=== PATIENT | female | born 1945 | race Caucasian/White ===

== ENCOUNTER 2016-11-01 19:36 | Emergency (ER) | payer MEDICARE, OTHER ==
[2016-11-01 20:11] VITALS: RESP 18
--- NOTE | 2016-11-01 20:45 | ED ---
Chest Pain HPI - General Chief Complaint: Chest Pain Stated Complaint: L side pain Time Seen by Provider: 11/01/16 20:18 Source: patient, RN notes reviewed Mode of arrival: ambulatory Limitations: no limitations - History of Present Illness Initial Comments: This is a 70-year-old female with a history of anemia occasional transfusions also diabetes who complains of the onset over last couple days of sharp and sometimes dull left-sided chest pain radiates underneath her left breast. She states she has been moving but has really lifted anything up recently. She states it gets worse with movements and some deep breathing no fevers chills nausea vomiting sweats cough or other symptoms. She has no known history of heart or lung disease she does have a history however of CHF. She is not short of breath and has no peripheral edema. When the pain is area can be as high as 8/10 currently is 0/10. MD Complaint: chest pain - Related Data Previous Rx's Medication Instructions Recorded Ibuprofen 800 mg PO Q6HR PRN #20 tablet 11/01/16 Levofloxacin [Levaquin] 500 mg PO DAILY #9 tab 11/01/16 Magnesium Oxide [Magnesium] 500 mg PO DAILY #7 capsule 11/01/16 Allergies Allergy/AdvReac Type Severity Reaction Status Date / Time pentazocine [From Talwin] Allergy Hallucinati Verified 11/01/16 20:11 ons Review of Systems ROS Statement: Those systems with pertinent positive or pertinent negative responses have been documented in the HPI. ROS Other: All systems not noted in ROS Statement are negative. EKG Findings - EKG Results: EKG: interpreted by SHAHIDA, sinus rhythm (Sinus rhythm with a rate 67 appear of 01 50 to QRS of 72 QT/QTC of 390/412 st-t wave changes.) Past Medical History Past Medical History: Heart Failure, Diabetes Mellitus, Hypertension Additional Past Medical History / Comment(s): "Blood Disorder"; Anemia - frequent blood transfusions. History of Any Multi-Drug Resistant Organisms: None Reported Past Surgical History: Hysterectomy, Orthopedic Surgery, Tonsillectomy Additional Past Surgical History / Comment(s): Hemorrhagic cyst removed from right ureter; Right foot surgery; Left hip pain stimulator implanted Past Psychological History: No Psychological Hx Reported Smoking Status: Former smoker Past Alcohol Use History: None Reported Past Drug Use History: None Reported General Exam - General Exam Comments Initial Comments: This is a well-developed well-nourished awake alert oriented 3 female Limitations: no limitations General appearance: alert, in no apparent distress Head exam: Present: atraumatic, normocephalic, normal inspection Eye exam: Present: normal appearance, PERRL, EOMI. Absent: scleral icterus, conjunctival injection, periorbital swelling ENT exam: Present: normal exam, mucous membranes moist Neck exam: Present: normal inspection. Absent: tenderness, meningismus, lymphadenopathy Respiratory exam: Present: normal lung sounds bilaterally, chest wall tenderness (Reproducible tenderness palpation along the left anterior lateral chest wall no step-off no crepitation no rashes seen). Absent: respiratory distress, wheezes, rales, rhonchi, stridor Cardiovascular Exam: Present: regular rate, normal rhythm, normal heart sounds. Absent: systolic murmur, diastolic murmur, rubs, gallop, clicks GI/Abdominal exam: Present: soft, normal bowel sounds. Absent: distended, tenderness, guarding, rebound, rigid Extremities exam: Present: normal inspection, full ROM, normal capillary refill. Absent: tenderness, pedal edema, joint swelling, calf tenderness Back exam: Present: normal inspection Neurological exam: Present: alert, oriented X3, CN II-XII intact Psychiatric exam: Present: normal affect, normal mood Skin exam: Present: warm, dry, intact, normal color. Absent: rash Course Vital Signs 11/01/16 11/01/16 20:07 21:11 Temperature 98.0 F Pulse Rate 83 72 Respiratory 18 18 Rate Blood Pressure 153/70 128/60 O2 Sat by Pulse 98 96 Oximetry Chest Pain MDM - MDM Imaging review shows no acute changes. Patient does demonstrate hypomagnesemia as well as urinary tract infection that she's got no symptoms. She states she tolerates Levaquin well also be discharged on appropriate medication she does feel improved. Disposition Clinical Impression: Chest wall syndrome, Urinary tract infection, Hypomagnesemia Disposition: HOME SELF-CARE Condition: Good Instructions: Costochondritis (ED), Urinary Tract Infection in Women (ED), Hypomagnesemia (ED) Prescriptions: Ibuprofen 800 mg PO Q6HR PRN #20 tablet PRN Reason: Pain Levofloxacin [Levaquin] 500 mg PO DAILY #9 tab Magnesium Oxide [Magnesium] 500 mg PO DAILY #7 capsule Referrals: None,Stated [Primary Care Provider] - 1-2 days
[2016-11-01 21:26] LABS: Basophils # (A) 0.1 k/uL (0-0.2); Basophils % (A) 1 %; CH 28.7; CHCM 32.1; Eosinophils # (A) 0.3 k/uL (0-0.7); Eosinophils % (A) 4 %; HDW 2.72; HGB 11.5 gm/dL (11.4-16.0); Luc # (Auto) 0.12; Luc % (Auto) 2; Lymphocytes # (A) 1.9 k/uL (1.0-4.8); Lymphocytes % (A) 27 %; MCH 29.6 pg (25.0-35.0); MCV 89.9 fL (80.0-100.0); Mean Platelet Volume 7.2; Monocytes # (A) 0.4 k/uL (0-1.0); Monocytes % (A) 5 %; Neutrophils # (A) 4.3 k/uL (1.3-7.7); Neutrophils % (A) 62 %; RBC 3.89 m/uL (3.80-5.40); RDW 15.8 % (11.5-15.5)
[2016-11-01 21:29] LABS: ALT 30 U/L (9-52); AST 54 U/L (14-36); Alkaline Phosphatase 136 U/L (38-126); Anion Gap 9 mmol/L; Blood Urea Nitrogen 14 mg/dL (7-17); Carbon Dioxide 23 mmol/L (22-30); Chloride 111 mmol/L (98-107); Glucose 108 mg/dL (74-99); Non-African American GFR(MDRD) >60 (>60 ml/min/1.73 sqM); Potassium 4.2 mmol/L (3.5-5.1); Sodium 143 mmol/L (137-145); Total Protein 8.1 g/dL (6.3-8.2)
[2016-11-01 21:38] LABS: Magnesium 0.8 mg/dL (1.6-2.3)
[2016-11-01] MEDS ORDERED: MAGNESIUM SULFATE-D5W PMX 1 GM in DEXTROSE/WATER 1 100ML.BAG IVPB ONE (21:38)
[2016-11-01 21:42] LABS: Creatine Kinase 157 U/L (30-135)
--- NOTE | 2016-11-01 21:45 | XR ---
EXAMINATION TYPE: XR chest 2V DATE OF EXAM: 11/01/2016 COMPARISON: NONE HISTORY: Chest pain TECHNIQUE: Frontal and lateral views of the chest are obtained. FINDINGS: There is no focal air space opacity, pleural effusion, or pneumothorax seen. Thoracic cord stimulator leads are present. There are overlying cardiac leads. Patient is rotated. The cardiac helen houette size is enlarged. The osseous structures are intact. IMPRESSION: Cardiomegaly.
[2016-11-01] MEDS ORDERED: KETOROLAC 30 MG/ML 1 ML VIAL IVP STA (21:48)
[2016-11-01 21:55] LABS: Creatine Kinase MB 1.8 ng/mL (0.0-2.4); Troponin I <0.012 ng/mL (0.000-0.034)
[2016-11-01] MEDS ORDERED: SODIUM CHLORIDE 0.9% 500 ML IV STA (22:04)
[2016-11-01 22:39] LABS: INR 1.3 (<1.1); Partial Thromboplastin Time 28.9 sec (22.0-30.0)
[2016-11-01 23:24] LABS: Appearance,Urine Cloudy (Clear); Bacteria,Urine Many /hpf; Bilirubin,Urine Negative (Negative); Glucose,Urine (UA) 1+ (Negative); Ketones,Urine Negative (Negative); Leukocyte Esterase,Urine Large (Negative); Mucus,Urine Rare /hpf; Nitrite,Urine Positive (Negative); PH, Urine 5.5 (5.0-8.0); Particle Count 52941; Protein,Urine Trace (Negative); RBC,Urine 11 /hpf (0-5); Specific Gravity,Urine 1.016 (1.001-1.035); Squamous Epithelial Cell,Urine 12 /hpf (0-4); UA Billing (MACRO vs. MICRO) MICRO; Urobilinogen,Urine <2.0 mg/dL (<2.0); WBC,Urine >182 /hpf (0-5)
[2016-11-01] MEDS ORDERED: LEVOFLOXACIN 750 MG TAB PO STA (23:30)
[2016-11-02 02:05] VITALS: BP 142/65; PULSE 78; TEMP 97.6
== END 2016-11-01 23:45 | disposition home or self-care (01) ==
LOC: EC 19:36
DX: R07.1 Chest pain on breathing (principal); N39.0 Urinary tract infection, site not specified; E83.42 Hypomagnesemia; Z87.891 Personal history of nicotine dependence; Z88.8 Allergy status to other drugs, medicaments and biological substances
CPT/HCPCS: 36415; 85379; 80053; 82550; 82553; 83735; 84484; 85025; 85610; 85730; 81001; 71020; 99285; 96365; 96375; 96361; J1885; J3475; 93005

== ENCOUNTER 2016-11-15 00:35 | Emergency (ER) | payer MEDICARE, OTHER ==
[2016-11-15 00:42] VITALS: RESP 16
[2016-11-15] MEDS ORDERED: SODIUM CHLORIDE 0.9% 1,000 ML IV STA (01:01)
[2016-11-15] MEDS ORDERED: HYDROmorphone 1 MG/ML 1 ML SYRINGE IVP STA (01:01)
[2016-11-15] MEDS ORDERED: ONDANSETRON 4 MG/2 ML VIAL IVP STA (01:01)
[2016-11-15] MEDS ORDERED: KETOROLAC 30 MG/ML 1 ML VIAL IVP STA (01:01)
[2016-11-15 01:36] LABS: Basophils # (A) 0.1 k/uL (0-0.2); Basophils % (A) 1 %; CH 28.9; CHCM 31.5; Eosinophils # (A) 0.3 k/uL (0-0.7); Eosinophils % (A) 5 %; HCT 34.1 % (34.0-46.0); HDW 2.66; HGB 10.6 gm/dL (11.4-16.0); Hypochromasia Slight; Luc % (Auto) 2; Lymphocytes # (A) 1.4 k/uL (1.0-4.8); Lymphocytes % (A) 25 %; MCH 28.7 pg (25.0-35.0); MCHC 31.1 g/dL (31.0-37.0); MCV 92.3 fL (80.0-100.0); Mean Platelet Volume 7.3; Monocytes # (A) 0.4 k/uL (0-1.0); Monocytes % (A) 6 %; Neutrophils # (A) 3.6 k/uL (1.3-7.7); Neutrophils % (A) 62 %; RDW 15.4 % (11.5-15.5); WBC 5.8 k/uL (3.8-10.6); WBC (Perox) 5.84
[2016-11-15 01:45] LABS: ALT 46 U/L (9-52); AST 34 U/L (14-36); Alkaline Phosphatase 161 U/L (38-126); Amylase 50 U/L (30-110); Anion Gap 11 mmol/L; Blood Urea Nitrogen 15 mg/dL (7-17); Calcium 8.7 mg/dL (8.4-10.2); Carbon Dioxide 22 mmol/L (22-30); Chloride 107 mmol/L (98-107); Glucose 159 mg/dL (74-99); Non-African American GFR(MDRD) >60 (>60 ml/min/1.73 sqM); Potassium 3.7 mmol/L (3.5-5.1); Sodium 140 mmol/L (137-145); Total Bilirubin 0.6 mg/dL (0.2-1.3); Total Protein 7.3 g/dL (6.3-8.2)
--- NOTE | 2016-11-15 02:18 | XR ---
INDICATION: Abdominal pain COMPARISON: None. FINDINGS: Upright AP views of the abdomen are provided. Gas pattern is nonspecific and nonobstructive. Colonic gas is visualized. No fluid levels. No evidence of free air. There has been prior cholecystectomy. Regional skeleton is intact. Spinal stimulator device projecting over the left iliac bone with leads extending to the T8 level. IMPRESSION: Nonspecific, nonobstructive bowel gas pattern.
[2016-11-15 02:31] LABS: Appearance,Urine Clear (Clear); Bilirubin,Urine Negative (Negative); Glucose,Urine (UA) Negative (Negative); Ketones,Urine Negative (Negative); Leukocyte Esterase,Urine Negative (Negative); Nitrite,Urine Negative (Negative); PH, Urine 5.5 (5.0-8.0); Protein,Urine Trace (Negative); Specific Gravity,Urine 1.019 (1.001-1.035); UA Billing (MACRO vs. MICRO) CHEM; Urobilinogen,Urine <2.0 mg/dL (<2.0)
--- NOTE | 2016-11-15 02:39 | ED ---
Abdominal Pain HPI - General Chief Complaint: Abdominal Pain Stated Complaint: Flank Pain Time Seen by Provider: 11/15/16 00:55 Source: patient, family, RN notes reviewed, old records reviewed Mode of arrival: ambulatory Limitations: no limitations - History of Present Illness Initial Comments: This is a 71-year-old female presenting to the emergency Department chief complaint of left upper quadrant and left flank pain for the past week. Patient reports that she was seen in the emergency department for similar pains a week ago was placed on Levaquin for urinary tract infection. Patient denies any urinary symptoms including dysuria or hematuria or polyuria. Patient reports that she is completely antibiotics yet still is having the pain and left upper quadrant. Patient denies any fever or chills. She denies any vomiting or changes in bowel movements. Patient denies any recent fever, chills , shortness of breath, chest pain, back pain, nausea vomiting, numbness or tingling, dysuria or hematuria, constipation or diarrhea, headaches or visual changes, or any other current symptoms - Related Data Previous Rx's Medication Instructions Recorded Ibuprofen 800 mg PO Q6HR PRN #20 tablet 11/01/16 Levofloxacin [Levaquin] 500 mg PO DAILY #9 tab 11/01/16 Magnesium Oxide [Magnesium] 500 mg PO DAILY #7 capsule 11/01/16 Allergies Allergy/AdvReac Type Severity Reaction Status Date / Time pentazocine [From Talwin] Allergy Hallucinati Verified 11/15/16 00:41 ons Review of Systems ROS Statement: Those systems with pertinent positive or pertinent negative responses have been documented in the HPI. ROS Other: All systems not noted in ROS Statement are negative. Past Medical History Past Medical History: Heart Failure, Diabetes Mellitus, Hypertension Additional Past Medical History / Comment(s): "Blood Disorder"; Anemia - frequent blood transfusions. History of Any Multi-Drug Resistant Organisms: None Reported Past Surgical History: Hysterectomy, Orthopedic Surgery, Tonsillectomy Additional Past Surgical History / Comment(s): Hemorrhagic cyst removed from right ureter; Right foot surgery; Left hip pain stimulator implanted Past Psychological History: No Psychological Hx Reported Smoking Status: Former smoker Past Alcohol Use History: None Reported Past Drug Use History: None Reported General Exam - General Exam Comments Initial Comments: Pleasant 71-year-old female. No acute distress. Limitations: no limitations General appearance: alert, in no apparent distress Head exam: Present: atraumatic, normocephalic, normal inspection Eye exam: Present: normal appearance, PERRL, EOMI. Absent: scleral icterus, conjunctival injection, periorbital swelling ENT exam: Present: normal exam, mucous membranes moist Neck exam: Present: normal inspection. Absent: tenderness, meningismus, lymphadenopathy Respiratory exam: Present: normal lung sounds bilaterally. Absent: respiratory distress, wheezes, rales, rhonchi, stridor Cardiovascular Exam: Present: regular rate, normal rhythm, normal heart sounds. Absent: systolic murmur, diastolic murmur, rubs, gallop, clicks GI/Abdominal exam: Present: soft, tenderness (Left upper quadrant tenderness), normal bowel sounds. Absent: distended, guarding, rebound, rigid Extremities exam: Present: normal inspection, full ROM, normal capillary refill. Absent: tenderness, pedal edema, joint swelling, calf tenderness Back exam: Present: normal inspection Neurological exam: Present: alert, oriented X3, CN II-XII intact Psychiatric exam: Present: normal affect, normal mood Skin exam: Present: warm, dry, intact, normal color. Absent: rash Course Vital Signs 11/15/16 00:38 Temperature 97.5 F L Pulse Rate 68 Respiratory 16 Rate Blood Pressure 149/65 O2 Sat by Pulse 97 Oximetry Medical Decision Making - Medical Decision Making This is a 71-year-old female presenting to the emergency Department chief complaint of left upper quadrant and left flank pain for the past week. Patient reports that she was seen in the emergency department for similar pains a week ago was placed on Levaquin for urinary tract infection. Patient denies any urinary symptoms including dysuria or hematuria or polyuria. Patient reports that she is completely antibiotics yet still is having the pain and left upper quadrant. Patient denies any fever or chills. She denies any vomiting or changes in bowel movements. Patient received IV pain medication and lab work. Lab work is unremarkable. KUB are negative. Patient is significantly tender in the left upper quadrant. CAT scan was performed with contrast. Discussed the case with Dr. Gaytan. CAT scan was later reviewed and negative for any acute process. Patient reports that she has a follow-up appointment with Dr. Nance on Thursday. Discussed with her that could be musculoskeletal in nature. Patient agrees. Patient will be advised to return if he gets worse. Patient understands treatment plan will comply. - Lab Data Result diagrams: 11/15/16 01:30 11/15/16 01:30 Lab Results 11/15/16 11/15/16 11/15/16 Range/Units 01:30 01:30 02:24 WBC 5.8 (3.8-10.6) k/uL RBC 3.70 L (3.80-5.40) m/uL Hgb 10.6 L (11.4-16.0) gm/dL Hct 34.1 (34.0-46.0) % MCV 92.3 (80.0-100.0) fL MCH 28.7 (25.0-35.0) pg MCHC 31.1 (31.0-37.0) g/dL RDW 15.4 (11.5-15.5) % Plt Count 125 L (150-450) k/uL Neutrophils % 62 % Lymphocytes % 25 % Monocytes % 6 % Eosinophils % 5 % Basophils % 1 % Neutrophils # 3.6 (1.3-7.7) k/uL Lymphocytes # 1.4 (1.0-4.8) k/uL Monocytes # 0.4 (0-1.0) k/uL Eosinophils # 0.3 (0-0.7) k/uL Basophils # 0.1 (0-0.2) k/uL Hypochromasia Slight PT (9.0-12.0) sec INR (<1.1) APTT (22.0-30.0) sec Sodium 140 (137-145) mmol/L Potassium 3.7 (3.5-5.1) mmol/L Chloride 107 (98-107) mmol/L Carbon Dioxide 22 (22-30) mmol/L Anion Gap 11 mmol/L BUN 15 (7-17) mg/dL Creatinine 0.80 (0.52-1.04) mg/dL Est GFR (MDRD) Af Amer >60 (>60 ml/min/1.73 sqM) Est GFR (MDRD) Non-Af >60 (>60 ml/min/1.73 sqM) Glucose 159 H (74-99) mg/dL Calcium 8.7 (8.4-10.2) mg/dL Total Bilirubin 0.6 (0.2-1.3) mg/dL AST 34 (14-36) U/L ALT 46 (9-52) U/L Alkaline Phosphatase 161 H (38-126) U/L Total Protein 7.3 (6.3-8.2) g/dL Albumin 3.8 (3.5-5.0) g/dL Amylase 50 (30-110) U/L Lipase 79 (23-300) U/L Urine Color Yellow Urine Appearance Clear (Clear) Urine pH 5.5 (5.0-8.0) Ur Specific [place] 1.019 (1.001-1.035) Urine Protein Trace H (Negative) Urine Glucose (UA) Negative (Negative) Urine Ketones Negative (Negative) Urine Blood Negative (Negative) Urine Nitrite Negative (Negative) Urine Bilirubin Negative (Negative) Urine Urobilinogen <2.0 (<2.0) mg/dL Ur Leukocyte Esterase Negative (Negative) 11/15/16 Range/Units 02:45 WBC (3.8-10.6) k/uL RBC (3.80-5.40) m/uL Hgb (11.4-16.0) gm/dL Hct (34.0-46.0) % MCV (80.0-100.0) fL MCH (25.0-35.0) pg MCHC (31.0-37.0) g/dL RDW (11.5-15.5) % Plt Count (150-450) k/uL Neutrophils % % Lymphocytes % % Monocytes % % Eosinophils % % Basophils % % Neutrophils # (1.3-7.7) k/uL Lymphocytes # (1.0-4.8) k/uL Monocytes # (0-1.0) k/uL Eosinophils # (0-0.7) k/uL Basophils # (0-0.2) k/uL Hypochromasia PT 13.1 H (9.0-12.0) sec INR 1.3 (<1.1) APTT 30.6 H (22.0-30.0) sec Sodium (137-145) mmol/L Potassium (3.5-5.1) mmol/L Chloride (98-107) mmol/L Carbon Dioxide (22-30) mmol/L Anion Gap mmol/L BUN (7-17) mg/dL Creatinine (0.52-1.04) mg/dL Est GFR (MDRD) Af Amer (>60 ml/min/1.73 sqM) Est GFR (MDRD) Non-Af (>60 ml/min/1.73 sqM) Glucose (74-99) mg/dL Calcium (8.4-10.2) mg/dL Total Bilirubin (0.2-1.3) mg/dL AST (14-36) U/L ALT (9-52) U/L Alkaline Phosphatase (38-126) U/L Total Protein (6.3-8.2) g/dL Albumin (3.5-5.0) g/dL Amylase (30-110) U/L Lipase (23-300) U/L Urine Color Urine Appearance (Clear) Urine pH (5.0-8.0) Ur Specific [place] (1.001-1.035) Urine Protein (Negative) Urine Glucose (UA) (Negative) Urine Ketones (Negative) Urine Blood (Negative) Urine Nitrite (Negative) Urine Bilirubin (Negative) Urine Urobilinogen (<2.0) mg/dL Ur Leukocyte Esterase (Negative) - Radiology Data Radiology results: report reviewed CT abdomen and pelvis was performed. No evidence of acute inflammatory process. Mild hepatosplenomegaly. Status post cholecystectomy and hysterectomy. Left; diverticulosis without diverticulitis. Appendix is not identified. AB x-rays negative for any acute process. Disposition Clinical Impression: Recurrent left upper quadrant abdominal pain, Left flank pain Disposition: HOME SELF-CARE Condition: Good Instructions: Abdominal Pain (ED) Additional Instructions: Rest, remain hydrated. Follow-up with primary care provider on Thursday. Return to the emergency department if any alarming signs or symptoms occur. Referrals: None,Stated [Primary Care Provider] - 1-2 days Time of Disposition: 04:13
[2016-11-15] MEDS ORDERED: RX INFO: IV CONTRAST WAS GIVEN 1 EACH MISC MISCELLANE PRN (02:48)
[2016-11-15 03:20] LABS: INR 1.3 (<1.1); Partial Thromboplastin Time 30.6 sec (22.0-30.0); Prothrombin Time 13.1 sec (9.0-12.0)
--- NOTE | 2016-11-15 04:06 | CT ---
INDICATION: Abdominal pain, left flank pain TECHNIQUE: Helical CT acquisition is performed through the abdomen and pelvis following the administration of 100 mL Omnipaque 300 IV contrast. Limited delayed postcontrast image acquisition is performed through the kidneys. Sagittal and coronal reformatted images are available. This CT exam was performed using one or more of the following dose reduction techniques: automated exposure control, adjustment of the mA and/or kV according to patient size, and/or use of iterative reconstruction technique. DOSIMETRY: CTDIvol 25.90 mGy; DLP 969.20 mGy-cm COMPARISON: KUB 11/15/16 FINDINGS: There is mild bibasilar subsegmental atelectasis. The gallbladder is surgically absent. There is mild hepatomegaly. There is mild splenomegaly 13.2 cm. The pancreas and adrenal glands are unremarkable. Kidneys are similar in size and enhancement. There is no hydronephrosis. There is aortoiliac atherosclerosis without aneurysm. There is no adenopathy. There is no evidence of small or large bowel obstruction. The appendix is not identified. There is left hemicolon diverticulosis without evidence of acute diverticulitis. The uterus is surgically absent. Urinary bladder is unremarkable. There are no acute osseous findings. Spinal stimulator in place. IMPRESSION: 1. No CT evidence of acute or inflammatory process. 2. Mild hepatosplenomegaly. 3. Status post cholecystectomy, hysterectomy. 4. Left hemicolon diverticulosis without acute diverticulitis. Appendix not identified.
[2016-11-15 04:43] VITALS: BP 140/65; PULSE 85; TEMP 96.9
== END 2016-11-15 04:42 | disposition home or self-care (01) ==
LOC: EC 00:35
DX: R10.12 Left upper quadrant pain (principal); Z87.891 Personal history of nicotine dependence; Z88.8 Allergy status to other drugs, medicaments and biological substances
CPT/HCPCS: 99284; 96374; 96375 ×2; 96361; 36415; 80053; 82150; 83690; 85025; 85610; 85730; 81003; 74000; 74177; J2405; J1885; J1170; Q9967

== ENCOUNTER → 2017-07-15 | Outpatient (CLI) | payer MEDICARE, OTHER ==
[2017-07-15 12:06] LABS: INR 1.2 (<1.2); Partial Thromboplastin Time 26.8 sec (22.0-30.0); Prothrombin Time 11.7 sec (9.0-12.0)
[2017-07-15 12:19] LABS: ALT 28 U/L (9-52); AST 31 U/L (14-36); Albumin 4.1 g/dL (3.5-5.0); Alkaline Phosphatase 92 U/L (38-126); Anion Gap 13 mmol/L; Blood Urea Nitrogen 20 mg/dL (7-17); Calcium 8.9 mg/dL (8.4-10.2); Carbon Dioxide 26 mmol/L (22-30); Chloride 104 mmol/L (98-107); Glucose 185 mg/dL (74-99); Potassium 4.8 mmol/L (3.5-5.1); Sodium 143 mmol/L (137-145); Total Bilirubin 0.5 mg/dL (0.2-1.3); Total Protein 7.5 g/dL (6.3-8.2)
[2017-07-15 12:31] LABS: Basophils % (A) 1 %; Eosinophils # (A) 0.1 k/uL (0-0.7); Eosinophils % (A) 2 %; HCT 33.5 % (34.0-46.0); Hypochromasia Marked; Lymphocytes # (A) 1.6 k/uL (1.0-4.8); Lymphocytes % (A) 27 %; MCH 27.8 pg (25.0-35.0); MCHC 29.9 g/dL (31.0-37.0); Monocytes # (A) 0.4 k/uL (0-1.0); Monocytes % (A) 6 %; Neutrophils # (A) 3.7 k/uL (1.3-7.7); Neutrophils % (A) 63 %; Platelet Count 126 k/uL (150-450); RBC 3.61 m/uL (3.80-5.40); WBC 5.9 k/uL (3.8-10.6)
== END | disposition home or self-care (01) ==
LOC: LABWHC1 10:58
PROVIDERS: ATTEND Internal Medicine Gastroenterology
DX: K74.60 Unspecified cirrhosis of liver (principal)
CPT/HCPCS: 36415; 80053; 82105; 85025; 85610; 85730

== ENCOUNTER → 2017-08-12 | Outpatient (CLI) | payer MEDICARE, OTHER ==
--- NOTE | 2017-08-12 13:10 | US ---
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 Normal less than 1.0 cm i n a postcholecystectomy patient. Right Kidney: wnl IMPRESSION: 1. Hepatomegaly with some heterogeneity which can be related to fatty infiltration. Sclerosis is also considered. Typical lobulation of the borders not identified at this time.
== END | disposition home or self-care (01) ==
LOC: RADUSWWP 09:58
PROVIDERS: ATTEND Internal Medicine Gastroenterology
DX: R16.0 Hepatomegaly, not elsewhere classified (principal)
CPT/HCPCS: 76705

== ENCOUNTER → 2017-09-23 | Outpatient (CLI) | payer MEDICARE, OTHER ==
--- NOTE | 2017-09-24 10:23 | MM ---
Reason for exam: screening (asymptomatic). Last mammogram was performed 1 year and 11 months ago. History: Patient is postmenopausal. Family history of breast cancer in maternal aunt. Took estrogen beginning at age 35. Physical Findings: A clinical breast exam by your physician is recommended on an annual basis and results should be correlated with mammographic findings. MG 3D Screening Mammo W/Cad Bilateral CC and MLO view(s) were taken. Prior study comparison: October 18, 2015, mammogram, performed at [place]. September 22, 2013, mammogram, performed at [place]. The breast tissue is heterogeneously dense. This may lower the sensitivity of mammography. Stable benign calcifications. There is chronic nodularity bilaterally. There is no dominant lesion. No significant changes when compared with prior studies. ASSESSMENT: Benign, BI-RAD 2 RECOMMENDATION: Routine screening mammogram of both breasts in 1 year.
== END | disposition home or self-care (01) ==
LOC: RADMAMWWP 14:31
PROVIDERS: ATTEND Family Medicine
DX: Z12.31 Encounter for screening mammogram for malignant neoplasm of breast (principal)
CPT/HCPCS: 77063; 77067

== ENCOUNTER 2018-01-11 09:14 | Inpatient (IN) | payer MEDICARE, OTHER ==
[2018-01-11] MEDS ORDERED: SODIUM CHLORIDE 0.9% 500 ML IV STA (09:23)
[2018-01-11 09:51] LABS: Basophils # (A) 0.1 k/uL (0-0.2); Basophils % (A) 1 %; Eosinophils # (A) 0.1 k/uL (0-0.7); Eosinophils % (A) 2 %; HCT 31.9 % (34.0-46.0); HGB 9.4 gm/dL (11.4-16.0); Hypochromasia Marked; Lymphocytes # (A) 1.6 k/uL (1.0-4.8); Lymphocytes % (A) 26 %; MCH 26.1 pg (25.0-35.0); MCHC 29.6 g/dL (31.0-37.0); MCV 88.4 fL (80.0-100.0); Mean Platelet Volume 8.7; Monocytes # (A) 0.3 k/uL (0-1.0); Monocytes % (A) 5 %; Neutrophils # (A) 3.9 k/uL (1.3-7.7); Neutrophils % (A) 64 %; Platelet Count 127 k/uL (150-450); RBC 3.61 m/uL (3.80-5.40); RDW 14.6 % (11.5-15.5)
--- NOTE | 2018-01-11 09:54 | ED ---
General Adult HPI - General Chief complaint: Dizziness Stated complaint: Low blood pressure/dizzy Time Seen by Provider: 01/11/18 09:23 Source: patient, RN notes reviewed, old records reviewed Mode of arrival: wheelchair Limitations: no limitations - History of Present Illness Initial comments: 72-year-old female presents for evaluation of low blood pressure and generalized weakness. Patient states she woke up normally this morning, took her medications which do include antihypertensive medications, approximately one hour after this she began to feel lightheaded, she took her blood pressure and noted her blood pressure to be 73 systolic. She presented for evaluation at this time. Patient states she has had some diarrhea however this is somewhat chronic in nature. No recent change in her bowels. No dysuria or hematuria, she is currently on an antibiotic for urinary tract infection. Denies nausea or vomiting. Denies chest pain. Denies shortness of breath. Denies fever or chills. Denies focal numbness or weakness. - Related Data Home Medications Medication Instructions Recorded Confirmed Esomeprazole Magnesium [NexIUM] 40 mg PO DAILY 05/14/17 01/11/18 HYDROcodone/APAP 10-325MG [[place] 1 tab PO Q6H PRN 05/14/17 01/11/18 10-325] Insulin Detemir [Levemir] 62 unit SQ BID 05/14/17 01/11/18 sitaGLIPtin PHOS/metFORMIN HCL 2 tab PO W/SUPPER 05/14/17 01/11/18 [Janumet Xr 50-1,000 mg Tablet] Carvedilol [Coreg*] 12.5 tab PO BID 10/09/17 01/11/18 Insulin Glulisine [Apidra] See Protocol SQ AC-TID 10/09/17 01/11/18 Lisinopril [Zestril] 2.5 mg PO DAILY 10/09/17 01/11/18 Atorvastatin [Lipitor] 40 mg PO HS 01/11/18 01/11/18 Pramipexole Di-HCl [Mirapex] 0.75 mg PO BID 01/11/18 01/11/18 Allergies Allergy/AdvReac Type Severity Reaction Status Date / Time pentazocine [From [place]] Allergy Hallucinati Verified 01/11/18 10:04 ons Review of Systems ROS Statement: Those systems with pertinent positive or pertinent negative responses have been documented in the HPI. ROS Other: All systems not noted in ROS Statement are negative. Past Medical History Past Medical History: Heart Failure, Diabetes Mellitus, Hypertension, Liver Disease Additional Past Medical History / Comment(s): "Blood Disorder"; Anemia - frequent blood transfusions. Cirrhosis of liver History of Any Multi-Drug Resistant Organisms: None Reported Past Surgical History: Hysterectomy, Orthopedic Surgery, Tonsillectomy Additional Past Surgical History / Comment(s): Hemorrhagic cyst removed from right ureter; Right foot surgery; Left hip pain stimulator implanted. Steel iris in right arm Past Anesthesia/Blood Transfusion Reactions: No Reported Reaction Past Psychological History: No Psychological Hx Reported Smoking Status: Former smoker Past Alcohol Use History: None Reported Past Drug Use History: None Reported General Exam Limitations: no limitations General appearance: alert, in no apparent distress Head exam: Present: atraumatic, normocephalic Eye exam: Present: normal appearance, PERRL, EOMI ENT exam: Present: mucous membranes dry Neck exam: Present: normal inspection. Absent: tenderness, meningismus Respiratory exam: Present: normal lung sounds bilaterally. Absent: respiratory distress, wheezes Cardiovascular Exam: Present: regular rate, normal rhythm GI/Abdominal exam: Present: soft. Absent: distended, tenderness, guarding, rebound Extremities exam: Present: normal inspection, normal capillary refill. Absent: pedal edema Neurological exam: Present: alert, oriented X3, CN II-XII intact. Absent: motor sensory deficit Psychiatric exam: Present: normal affect, normal mood Skin exam: Present: warm, dry, intact. Absent: cyanosis, diaphoretic Course Vital Signs 01/11/18 09:17 Temperature 98.0 F Pulse Rate 58 L Respiratory 18 Rate Blood Pressure 98/66 O2 Sat by Pulse 97 Oximetry EKG Findings - EKG Comments: EKG Findings:: EKG: Normal sinus rhythm, rate of 66, VA interval 156, QRS duration 64, QTC 419, no ST segment elevation or depression Medical Decision Making - Medical Decision Making 72-year-old female presenting with generalized weakness and low blood pressure. Blood pressure may be related to antihypertensive medications that she did take this morning. She denies overtaking these medications. EKG is normal sinus rhythm, laboratory studies reveal normal white blood cell count, stable hemoglobin for this patient. Magnesium is very low 0.8. This may be contributory to the patient's symptoms. Chest x-ray negative for focal pneumonia. She will be admitted to the hospital for magnesium replacement, monitoring of her blood pressure. Antihypertensive medications will be held at this time. - Lab Data Result diagrams: 01/11/18 09:30 01/11/18 09:30 Lab Results 01/11/18 01/11/18 01/11/18 Range/Units 09:30 09:30 09:30 WBC 6.0 (3.8-10.6) k/uL RBC 3.61 L (3.80-5.40) m/uL Hgb 9.4 L (11.4-16.0) gm/dL Hct 31.9 L (34.0-46.0) % MCV 88.4 (80.0-100.0) fL MCH 26.1 (25.0-35.0) pg MCHC 29.6 L (31.0-37.0) g/dL RDW 14.6 (11.5-15.5) % Plt Count 127 L (150-450) k/uL Neutrophils % 64 % Lymphocytes % 26 % Monocytes % 5 % Eosinophils % 2 % Basophils % 1 % Neutrophils # 3.9 (1.3-7.7) k/uL Lymphocytes # 1.6 (1.0-4.8) k/uL Monocytes # 0.3 (0-1.0) k/uL Eosinophils # 0.1 (0-0.7) k/uL Basophils # 0.1 (0-0.2) k/uL Hypochromasia Marked PT (9.0-12.0) sec INR (<1.2) APTT (22.0-30.0) sec Sodium 141 (137-145) mmol/L Potassium 5.0 (3.5-5.1) mmol/L Chloride 109 H (98-107) mmol/L Carbon Dioxide 26 (22-30) mmol/L Anion Gap 6 mmol/L BUN 18 H (7-17) mg/dL Creatinine 1.00 (0.52-1.04) mg/dL Est GFR (CKD-EPI)AfAm 66 (>60 ml/min/1.73 sqM) Est GFR (CKD-EPI)NonAf 58 (>60 ml/min/1.73 sqM) Glucose 112 H (74-99) mg/dL Plasma Lactic Acid Phi (0.7-2.0) mmol/L Calcium 8.3 L (8.4-10.2) mg/dL Magnesium 0.8 L* (1.6-2.3) mg/dL Total Bilirubin 0.4 (0.2-1.3) mg/dL AST 31 (14-36) U/L ALT 31 (9-52) U/L Alkaline Phosphatase 67 (38-126) U/L Total Creatine Kinase 65 (30-135) U/L CK-MB (CK-2) 1.0 (0.0-2.4) ng/mL CK-MB (CK-2) Rel Index 1.5 Troponin I <0.012 (0.000-0.034) ng/mL Total Protein 7.3 (6.3-8.2) g/dL Albumin 4.0 (3.5-5.0) g/dL Urine Color Urine Appearance (Clear) Urine pH (5.0-8.0) Ur Specific [place] (1.001-1.035) Urine Protein (Negative) Urine Glucose (UA) (Negative) Urine Ketones (Negative) Urine Blood (Negative) Urine Nitrite (Negative) Urine Bilirubin (Negative) Urine Urobilinogen (<2.0) mg/dL Ur Leukocyte Esterase (Negative) Urine RBC (0-5) /hpf Urine WBC (0-5) /hpf Ur Squamous Epith Cells (0-4) /hpf Urine Bacteria (None) /hpf Hyaline Casts (0-2) /lpf Urine Mucus (None) /hpf 01/11/18 01/11/18 01/11/18 Range/Units 09:30 09:30 09:30 WBC (3.8-10.6) k/uL RBC (3.80-5.40) m/uL Hgb (11.4-16.0) gm/dL Hct (34.0-46.0) % MCV (80.0-100.0) fL MCH (25.0-35.0) pg MCHC (31.0-37.0) g/dL RDW (11.5-15.5) % Plt Count (150-450) k/uL Neutrophils % % Lymphocytes % % Monocytes % % Eosinophils % % Basophils % % Neutrophils # (1.3-7.7) k/uL Lymphocytes # (1.0-4.8) k/uL Monocytes # (0-1.0) k/uL Eosinophils # (0-0.7) k/uL Basophils # (0-0.2) k/uL Hypochromasia PT 11.9 (9.0-12.0) sec INR 1.3 H (<1.2) APTT 29.0 (22.0-30.0) sec Sodium (137-145) mmol/L Potassium (3.5-5.1) mmol/L Chloride (98-107) mmol/L Carbon Dioxide (22-30) mmol/L Anion Gap mmol/L BUN (7-17) mg/dL Creatinine (0.52-1.04) mg/dL Est GFR (CKD-EPI)AfAm (>60 ml/min/1.73 sqM) Est GFR (CKD-EPI)NonAf (>60 ml/min/1.73 sqM) Glucose (74-99) mg/dL Plasma Lactic Acid Phi 0.9 (0.7-2.0) mmol/L Calcium (8.4-10.2) mg/dL Magnesium (1.6-2.3) mg/dL Total Bilirubin (0.2-1.3) mg/dL AST (14-36) U/L ALT (9-52) U/L Alkaline Phosphatase (38-126) U/L Total Creatine Kinase (30-135) U/L CK-MB (CK-2) (0.0-2.4) ng/mL CK-MB (CK-2) Rel Index Troponin I (0.000-0.034) ng/mL Total Protein (6.3-8.2) g/dL Albumin (3.5-5.0) g/dL Urine Color Yellow Urine Appearance Cloudy H (Clear) Urine pH 5.5 (5.0-8.0) Ur Specific [place] 1.025 (1.001-1.035) Urine Protein 1+ H (Negative) Urine Glucose (UA) Negative (Negative) Urine Ketones Trace H (Negative) Urine Blood Negative (Negative) Urine Nitrite Negative (Negative) Urine Bilirubin Negative (Negative) Urine Urobilinogen 3.0 (<2.0) mg/dL Ur Leukocyte Esterase Small H (Negative) Urine RBC 1 (0-5) /hpf Urine WBC 5 (0-5) /hpf Ur Squamous Epith Cells 13 H (0-4) /hpf Urine Bacteria Rare H (None) /hpf Hyaline Casts 14 H (0-2) /lpf Urine Mucus Occasional H (None) /hpf Disposition Clinical Impression: Hypotension, Hypomagnesemia Disposition: ADMITTED IP TO THIS HOSP Condition: Stable Is patient prescribed a controlled substance at d/c from ED?: No Referrals: Jason Morse MD [Primary Care Provider] - 1-2 days Decision to Admit Reason: Admit from EC Decision Date: 01/11/18 Decision Time: 10:57
[2018-01-11 10:01] LABS: Appearance,Urine Cloudy (Clear); Bacteria,Urine Rare /hpf; Bilirubin,Urine Negative (Negative); Blood,Urine Negative (Negative); Color,Urine Yellow; Glucose,Urine (UA) Negative (Negative); Hyaline Casts,Urine 14 /lpf (0-2); Ketones,Urine Trace (Negative); Leukocyte Esterase,Urine Small (Negative); Mucus,Urine Occasional /hpf; Nitrite,Urine Negative (Negative); PH, Urine 5.5 (5.0-8.0); Protein,Urine 1+ (Negative); RBC,Urine 1 /hpf (0-5); Specific Gravity,Urine 1.025 (1.001-1.035); Squamous Epithelial Cell,Urine 13 /hpf (0-4); WBC,Urine 5 /hpf (0-5)
[2018-01-11 10:04] LABS: Calcium 8.3 mg/dL (8.4-10.2); INR 1.3 (<1.2); Prothrombin Time 11.9 sec (9.0-12.0); Total Bilirubin 0.4 mg/dL (0.2-1.3); Total Protein 7.3 g/dL (6.3-8.2)
[2018-01-11 10:11] LABS: Creatine Kinase 65 U/L (30-135)
[2018-01-11 10:14] LABS: Magnesium 0.8 mg/dL (1.6-2.3)
[2018-01-11] MEDS ORDERED: SODIUM CHLORIDE 0.9% 500 ML IV ONE (10:14)
--- NOTE | 2018-01-11 10:19 | XR ---
EXAMINATION TYPE: XR chest 2V DATE OF EXAM: 01/11/2018 COMPARISON: Prior chest x-ray November 01, 2016 HISTORY: Weakness, dizziness, hypotension TECHNIQUE: Frontal and lateral views of the chest are obtained. FINDINGS: There is no focal air space opacity, pleural effusion, or pneumothorax seen. The cardiac silhouette size is within normal limits. Postop change noted to the right shoulder. Thoracic cord st imulator is in place and is stable in position. Surgical clips present in the upper abdomen. Patient is rotated. The osseous structures are intact. IMPRESSION: No acute cardiopulmonary process.
[2018-01-11 10:25] LABS: Troponin I <0.012 ng/mL (0.000-0.034)
[2018-01-11] MEDS ORDERED: NALOXONE 0.4 MG/ML 1 ML VIAL IV PRN (10:51)
[2018-01-11] MEDS ORDERED: ACETAMINOPHEN TAB 325 MG TAB PO PRN (10:51)
[2018-01-11] MEDS ORDERED: SODIUM CHLORIDE 0.9% 1,000 ML IV SCH (11:00)
[2018-01-11] MEDS: MAGNESIUM SULFATE-D5W PMX 1 GM in DEXTROSE/WATER 1 100ML.BAG IVPB SCH ×2 (11:18→13:24)
[2018-01-11] MEDS ORDERED: HYDROcodone/APAP 5-325MG 1 EACH TAB PO PRN (11:18)
--- NOTE | 2018-01-11 12:02 | P.HPIM ---
History of Present Illness Chief Complaint: Lightheadedness This is a 72-year-old female with history of diabetes mellitus,LOPEZ, hypertension and chronic anemia dependent on iron infusions him to emergency department complaining of sudden onset of lightheadedness today. Patient was in her usual state of health this morning. As usual she took her usual home medications this morning which included lisinopril, Coreg, Mirapex, and insulin. About an hour later while working in her garage she started feeling lightheaded. Per her the rash was very hot. She denies spinning sensation. There is no chest pain or shortness of breath or focal numbness or weakness. There is no double vision nausea or vomiting. She felt she felt like she was falling down into a hole. She saw some black spots. As she sat down she started feeling somewhat better. She took her blood pressure and it was in 70s with heart rate of 66. She also check her blood glucose which came back justice. EMS was called and she was transferred to emergency department there was found to her blood pressure to be in 70s and 80s with heart rate of 60s. EKG showed sinus rhythm, no changes from before. She was given 1 L of normal saline bolus upon which all of her symptoms resolved and her blood pressure karan to 110s with HR in 70s. She was also found to have magnesium 0.8 and she was started on magnesium IV. Currently she is asymptomatic Patient states that that has been no recent changes in her oral medications. She did have a UTI last week and today she was finishing with her ciprofloxacin but otherwise no other medications. 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 he has had significant sweating during that time. She denies any watery diarrhea although she states that she chronically has 1-2 soft bowel movements every day including this morning. Review of Systems Constitutional: Denies chills, Denies fatigue, Denies fever, Denies lethargy, Denies malaise, Denies night sweats, Denies poor appetite, Denies sweats, Denies weakness Cardiovascular: Reports lightheadedness, Denies chest pain, Denies decreased exercise tolerance, Denies dyspnea on exertion, Denies edema, Denies orthopnea, Denies palpitations Respiratory: Denies congestion, Denies cough with sputum, Denies dyspnea Gastrointestinal: Reports change in bowel habits, Denies abdominal pain, Denies dyspepsia, Denies heartburn, Denies hematochezia Genitourinary: Denies dysuria, Denies flank pain Musculoskeletal: Denies gait dysfunction, Denies neck pain, Denies neck stiffness, Denies redness of joints Integumentary: Denies rash Neurological: Denies ataxia, Denies balance difficulties, Denies change in mentation, Denies change in speech Endocrine: Denies heat intolerance Past Medical History Past Medical History: Heart Failure, Diabetes Mellitus, Hypertension, Liver Disease Additional Past Medical History / Comment(s): "Blood Disorder"; Anemia - frequent blood transfusions. Cirrhosis of liver History of Any Multi-Drug Resistant Organisms: None Reported Past Surgical History: Hysterectomy, Orthopedic Surgery, Tonsillectomy Additional Past Surgical History / Comment(s): Hemorrhagic cyst removed from right ureter; Right foot surgery; Left hip pain stimulator implanted. Steel iris in right arm Past Anesthesia/Blood Transfusion Reactions: No Reported Reaction Past Psychological History: No Psychological Hx Reported Smoking Status: Former smoker Past Alcohol Use History: None Reported Past Drug Use History: None Reported Medications and Allergies Home Medications Medication Instructions Recorded Confirmed Type Esomeprazole Magnesium [NexIUM] 40 mg PO DAILY 05/14/17 01/11/18 History HYDROcodone/APAP 10-325MG [[place] 1 tab PO Q6H PRN 05/14/17 01/11/18 History 10-325] Insulin Detemir [Levemir] 62 unit SQ BID 05/14/17 01/11/18 History sitaGLIPtin PHOS/metFORMIN HCL 2 tab PO W/SUPPER 05/14/17 01/11/18 History [Janumet Xr 50-1,000 mg Tablet] Carvedilol [Coreg*] 12.5 tab PO BID 10/09/17 01/11/18 History Insulin Glulisine [Apidra] See Protocol SQ AC-TID 10/09/17 01/11/18 History Lisinopril [Zestril] 2.5 mg PO DAILY 10/09/17 01/11/18 History Atorvastatin [Lipitor] 40 mg PO HS 01/11/18 01/11/18 History Pramipexole Di-HCl [Mirapex] 0.75 mg PO BID 01/11/18 01/11/18 History Allergies Allergy/AdvReac Type Severity Reaction Status Date / Time pentazocine [From [email or web address]] Allergy Hallucinati Verified 01/11/18 10:04 ons Physical Exam Vitals: Vital Signs Temp Pulse Resp BP Pulse Ox 01/11/18 11:20 68 16 109/55 97 01/11/18 10:15 64 14 106/54 96 01/11/18 09:17 98.0 F 58 L 18 98/66 97 Intake and Output 01/10/18 01/11/18 01/11/18 22:59 06:59 14:59 Other: Weight 86.183 kg Gen.: Patient is awake, alert and orientated 3 no apparent distress, conversive and cooperative Head and neck: Timoptic, normocephalic, anicteric sclerae, no facial asymmetry, mucous membranes are moist and without any lesions, neck is supple and range of motion is preserved, no neck masses, no thyromegaly, no JVD Cardiovascular: Regular rhythm and rate S1 and S2 no murmurs rubs or gallops Respiratory: Normal respiratory effort, normal breath sounds bilaterally without any wheezing or crackles Abdomen: Soft and nontender nondistended no organomegaly no costovertebral angle tenderness Extremities: No peripheral leg edema and warmth or redness Musculoskeletal: No joint swelling deformities clubbing Neurological: Cranial nerves II-12 are intact, motor is 5 out of 5 in upper and lower extremities proximally and distally: No sensory deficit, DTRs patellar's are 1+ and symmetrical and cerebellar are negative Psychiatric: No anxiety or depression Skin: Without any rashes Results CBC & Chem 7: 01/11/18 09:30 01/11/18 09:30 Labs: Abnormal Lab Results - Last 24 Hours (Table) 01/11/18 01/11/18 01/11/18 Range/Units 09:30 09:30 09:30 RBC 3.61 L (3.80-5.40) m/uL Hgb 9.4 L (11.4-16.0) gm/dL Hct 31.9 L (34.0-46.0) % MCHC 29.6 L (31.0-37.0) g/dL Plt Count 127 L (150-450) k/uL INR 1.3 H (<1.2) Chloride 109 H (98-107) mmol/L BUN 18 H (7-17) mg/dL Glucose 112 H (74-99) mg/dL Calcium 8.3 L (8.4-10.2) mg/dL Magnesium 0.8 L* (1.6-2.3) mg/dL Urine Appearance (Clear) Urine Protein (Negative) Urine Ketones (Negative) Ur Leukocyte Esterase (Negative) Ur Squamous Epith Cells (0-4) /hpf Urine Bacteria (None) /hpf Hyaline Casts (0-2) /lpf Urine Mucus (None) /hpf 01/11/18 Range/Units 09:30 RBC (3.80-5.40) m/uL Hgb (11.4-16.0) gm/dL Hct (34.0-46.0) % MCHC (31.0-37.0) g/dL Plt Count (150-450) k/uL INR (<1.2) Chloride (98-107) mmol/L BUN (7-17) mg/dL Glucose (74-99) mg/dL Calcium (8.4-10.2) mg/dL Magnesium (1.6-2.3) mg/dL Urine Appearance Cloudy H (Clear) Urine Protein 1+ H (Negative) Urine Ketones Trace H (Negative) Ur Leukocyte Esterase Small H (Negative) Ur Squamous Epith Cells 13 H (0-4) /hpf Urine Bacteria Rare H (None) /hpf Hyaline Casts 14 H (0-2) /lpf Urine Mucus Occasional H (None) /hpf Abdominal x-ray: report reviewed Thrombosis Risk Factor Assmnt - DVT/VTE Prophylaxis DVT/VTE Prophylaxis: Low risk, early ambulation encouraged Assessment and Plan Plan: 1. Lightheadedness due to hypotension presumably due to combination of medications, lisinopril, Coreg, Mirapex and excessive fluid losses from excess sweating and working in the hot environment, Rule out autonomic instability due to diabetic neuropathy although less likely Responded to IV fluids Continue hydration and closely monitoring flank status Hold blood pressure medications for now and will evaluate with the patient and family further plans about his medications at the time of discharge 2. Hypomagnesemia Knees and currently being replaced we'll repeat this afternoon and replace further if needed Calcium is low normal Will check vitamin D levels and provide supplementation if needed 3. Type 2 diabetes mellitus Diabetic diet Accu-Cheks Coverage with sliding scale Patient already injected long-acting insulin this morning 4. Anemia normocytic with mild trauma cytopenia Hemoglobin 9.4 today and per patient this is improvement from 8.4 She had recent iron infusion and bone marrow Time with Patient: Greater than 30
[2018-01-11 15:03] LABS: Glucose,Whole Blood 178 mg/dL (75-99)
[2018-01-11 16:56] LABS: Glucose,Whole Blood 190 mg/dL (75-99)
[2018-01-11] MEDS ORDERED: INSULIN DETEMIR 100 UNIT/ML 10 ML VIAL SQ SCH (20:00)
[2018-01-11] MEDS: PRAMIPEXOLE 0.25 MG TAB PO SCH (20:06)
[2018-01-11 20:49] LABS: Glucose,Whole Blood 195 mg/dL (75-99)
[2018-01-11] MEDS ORDERED: MAGNESIUM OXIDE 400 MG TAB PO SCH (21:00)
[2018-01-11] MEDS: INSULIN ASPART 100 UNIT/ML 1 ML 10 ML VIAL SQ SCH (21:20)
[2018-01-12 01:06] VITALS: RESP 16
[2018-01-12 02:16] LABS: Glucose,Whole Blood 163 mg/dL (75-99)
[2018-01-12 04:32] VITALS: BP 117/72; PULSE 70; TEMP 97.8
[2018-01-12 06:11] LABS: Glucose,Whole Blood 219 mg/dL (75-99)
[2018-01-12] MEDS: INSULIN ASPART 100 UNIT/ML 1 ML 10 ML VIAL SQ SCH ×2 (06:25→12:16)
[2018-01-12 06:40] LABS: HCT 29.4 % (34.0-46.0); HGB 9.5 gm/dL (11.4-16.0); Hypochromasia Moderate; MCHC 32.3 g/dL (31.0-37.0); MCV 86.5 fL (80.0-100.0); Mean Platelet Volume 8.9; RBC 3.39 m/uL (3.80-5.40); RDW 14.4 % (11.5-15.5); WBC 4.8 k/uL (3.8-10.6)
[2018-01-12 06:52] LABS: ALT 25 U/L (9-52); AST 32 U/L (14-36); Albumin 3.5 g/dL (3.5-5.0); Alkaline Phosphatase 70 U/L (38-126); Anion Gap 9 mmol/L; Blood Urea Nitrogen 12 mg/dL (7-17); Calcium 7.9 mg/dL (8.4-10.2); Carbon Dioxide 18 mmol/L (22-30); Chloride 110 mmol/L (98-107); Glucose 204 mg/dL (74-99); Magnesium 1.2 mg/dL (1.6-2.3); Potassium 5.3 mmol/L (3.5-5.1); Sodium 137 mmol/L (137-145); Total Bilirubin 0.5 mg/dL (0.2-1.3); Total Protein 6.8 g/dL (6.3-8.2)
[2018-01-12 07:09] LABS: Lymphocytes # (M) 1.34 k/uL (1.0-4.8); Monocytes # (M) 0.29 k/uL (0-1.0); Neutrophils # (M) 3.07 k/uL (1.3-7.7); Neutrophils % (M) 64 %; Nucleated Red Blood Cells 0 /100 WBC (0-0); Platelet Count 98 k/uL (150-450); Total Cells Counted 100
[2018-01-12] MEDS ORDERED: PANTOPRAZOLE 40 MG TABLET PO SCH (07:30)
[2018-01-12] MEDS ORDERED: CALCIUM CARB-VIT D 500MG-200UN 1 EACH TAB PO SCH (08:00)
[2018-01-12] MEDS: PRAMIPEXOLE 0.25 MG TAB PO SCH (08:53)
[2018-01-12] MEDS: MAGNESIUM SULFATE-D5W PMX 1 GM in DEXTROSE/WATER 1 100ML.BAG IVPB SCH ×3 (08:57→12:10)
[2018-01-12] MEDS ORDERED: INSULIN DETEMIR 100 UNIT/ML 10 ML VIAL SQ SCH (09:00)
[2018-01-12] MEDS ORDERED: SODIUM BICARBONATE TAB 650 MG TAB PO SCH (09:00)
[2018-01-12 11:57] LABS: Glucose,Whole Blood 241 mg/dL (75-99)
[2018-01-12] MEDS ORDERED: CALCITRIOL 0.25 MCG CAP PO SCH (12:00)
--- NOTE | 2018-01-12 14:19 | P.DS ---
Providers Date of admission: 01/11/18 10:51 Attending physician: DO Rory Schuster MD Primary care physician: Jason Morse [facility] Course: Date of discharge: 01/12/2018 Admission diagnoses: 1. Hypertension 2. Hypomagnesemia Discharge diagnoses: 1. Hypotension, likely multifactorial due to dehydration, blood pressure medications 2. Hypomagnesemia 3. Type 2 diabetes mellitus 4. LOPEZ 5. Chronic anemia Procedures done this admission: None Consultants on this admission: None Pertinent laboratory results: Magnesium 0.8 Reason for admission: This is a 72-year-old female who has history of hypertension, diabetes, Lopez, who presented with lightheadedness orthostatic in nature and generalized weakness. Patient reported working in very hot environment in her garage for 3 days. The rash scale with excessive sweating and decreased by mouth intake for 3 days. At home she checks her blood pressure was in 70s and her blood sugar was normal at that point. EMS brought to emergency department was found the blood pressure to be 76/50 with heart rate of 66 and normal blood glucose. Hospital course. Initially in the emergency department patient received 1 L of normal saline after which her blood pressure karan to 110's level with significant improvement in her lightheadedness. Blood work showed normal lactic acid and stable creatinine. She has chronic anemia and hemoglobin was stable as well. Her blood pressure medications were held and she was started on IV fluids. Also was found magnesium to be 0.8. Patient was started on magnesium supplementation. After fluid resuscitation overnight next morning blood pressure was stable in 110s to 120s with stable heart rate and patient was ambulating in the room without any orthostatic lightheadedness or issues. She did have mild hypocalcemia of calcium 7.9 with normal albumin and vitamin D level of 26. She was given vitamin D and calcium and also expected with correction of magnesium this to improve as well. Disposition: Patient was discharged home in stable condition. We advised patient not to take her Coreg and lisinopril and to follow-up with PCP to recheck her blood pressure in next 2-4 days. She is also to check her electrolytes including magnesium and calcium in 2-3 days. 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 Also has schedule appointment with her production technician next week where she can further recheck her blood pressure and discuss medications. She was advised to keep hydrated. Blood sugar stays stable and no changes in her diabetic medications were otherwise at discharge. Follow-up: PCP in 2-4 days Cardiology as already scheduled BMP magnesium calcium in 2 days Blood pressure check with PCP in 2-4 days Patient Condition at Discharge: Good Plan - Discharge Summary Discharge Rx Participant: No New Discharge Prescriptions: New Calcium Carb-Vit D 500Mg-200Un [[place] 500+D] 2 each PO BID-W/MEALS #30 tab Magnesium Oxide [Mag-Ox] 400 mg PO DAILY #10 tablet Pantoprazole [Protonix] 40 mg PO AC-BRKFST tablet.dr Continue HYDROcodone/APAP 10-325MG [[place] 10-325] 1 tab PO Q6H PRN PRN Reason: Pain Insulin Detemir [Levemir] 62 unit SQ BID sitaGLIPtin PHOS/metFORMIN HCL [Janumet Xr 50-1,000 mg Tablet] 2 tab PO W/ SUPPER Insulin Glulisine [Apidra] See Protocol SQ AC-TID Atorvastatin [Lipitor] 40 mg PO HS Pramipexole Di-HCl [Mirapex] 0.75 mg PO BID Discontinued Esomeprazole Magnesium [NexIUM] 40 mg PO DAILY Lisinopril [Zestril] 2.5 mg PO DAILY Carvedilol [Coreg*] 12.5 tab PO BID Discharge Medication List HYDROcodone/APAP 10-325MG [[place] 10-325] 1 tab PO Q6H PRN 05/14/17 [History] Insulin Detemir [Levemir] 62 unit SQ BID 05/14/17 [History] sitaGLIPtin PHOS/metFORMIN HCL [Janumet Xr 50-1,000 mg Tablet] 2 tab PO W/ SUPPER 05/14/17 [History] Insulin Glulisine [Apidra] See Protocol SQ AC-TID 10/09/17 [History] Atorvastatin [Lipitor] 40 mg PO HS 01/11/18 [History] Pramipexole Di-HCl [Mirapex] 0.75 mg PO BID 01/11/18 [History] Calcium Carb-Vit D 500Mg-200Un [[place] 500+D] 2 each PO BID-W/MEALS #30 tab 08/07 /18 [Rx] Magnesium Oxide [Mag-Ox] 400 mg PO DAILY #10 tablet 01/12/18 [Rx] Pantoprazole [Protonix] 40 mg PO AC-BRKFST tablet. 01/12/18 [Rx] Activity/Diet/Wound Care/Special Instructions: Preadmission diet and activity
== END 2018-01-12 14:56 | disposition home or self-care (01) | DRG 641 ==
LOC: EC 09:14 → 6SEL 10:51
PROVIDERS: ADMIT Internal Medicine; ATTEND Internal Medicine
DX: E86.0 Dehydration (principal); D64.9 Anemia, unspecified; E11.9 Type 2 diabetes mellitus without complications; E83.42 Hypomagnesemia; E83.51 Hypocalcemia; I11.0 Hypertensive heart disease with heart failure; I50.9 Heart failure, unspecified; K74.60 Unspecified cirrhosis of liver; I95.9 Hypotension, unspecified; Z79.4 Long term (current) use of insulin; Z87.891 Personal history of nicotine dependence; Z90.710 Acquired absence of both cervix and uterus; Z79.891 Long term (current) use of opiate analgesic; Z79.899 Other long term (current) drug therapy; Z88.8 Allergy status to other drugs, medicaments and biological substances
CPT/HCPCS: 36415; 71046; 80053; 81001; 82306; 82550; 82553; 83605; 83735; 84100; 84443; 84484; 85025; 85610; 85730; 87040; 93005; 96361; 96365; 96366; 99285

== ENCOUNTER → 2018-01-25 | Outpatient (CLI) | payer MEDICARE, OTHER ==
[2018-01-25 09:57] LABS: Anion Gap 9 mmol/L; Blood Urea Nitrogen 16 mg/dL (7-17); Calcium 9.5 mg/dL (8.4-10.2); Carbon Dioxide 26 mmol/L (22-30); Chloride 106 mmol/L (98-107); Glucose 244 mg/dL (74-99); Magnesium 1.1 mg/dL (1.6-2.3); Potassium 4.9 mmol/L (3.5-5.1); Sodium 141 mmol/L (137-145)
[2018-01-26 13:43] LABS: ALT 56 U/L (9-52); AST 56 U/L (14-36); Alkaline Phosphatase 91 U/L (38-126); Total Bilirubin 0.4 mg/dL (0.2-1.3); Total Protein 7.5 g/dL (6.3-8.2)
== END | disposition home or self-care (01) ==
LOC: LABWHC1 09:00
PROVIDERS: ATTEND Nurse Practitioner Adult Health
DX: I50.1 Left ventricular failure, unspecified (principal); E83.42 Hypomagnesemia
CPT/HCPCS: 36415; 80048; 80053; 83735

== ENCOUNTER → 2018-01-26 | Outpatient (CLI) | payer MEDICARE, OTHER ==
[2018-01-26 13:18] LABS: Basophils % (A) 1 %; Eosinophils # (A) 0.1 k/uL (0-0.7); Eosinophils % (A) 3 %; HCT 32.1 % (34.0-46.0); HGB 9.5 gm/dL (11.4-16.0); Hypochromasia Marked; Lymphocytes # (A) 1.3 k/uL (1.0-4.8); Lymphocytes % (A) 25 %; MCH 26.8 pg (25.0-35.0); MCHC 29.6 g/dL (31.0-37.0); MCV 90.6 fL (80.0-100.0); Mean Platelet Volume 7.4; Monocytes # (A) 0.3 k/uL (0-1.0); Monocytes % (A) 6 %; Neutrophils # (A) 3.1 k/uL (1.3-7.7); Neutrophils % (A) 64 %; Platelet Count 123 k/uL (150-450); RBC 3.54 m/uL (3.80-5.40); RDW 14.9 % (11.5-15.5); WBC 4.9 k/uL (3.8-10.6)
[2018-01-26 13:23] LABS: INR 1.2 (<1.2); Partial Thromboplastin Time 27.3 sec (22.0-30.0); Prothrombin Time 11.7 sec (9.0-12.0)
== END | disposition home or self-care (01) ==
LOC: LABWHC1 12:29
PROVIDERS: ATTEND Internal Medicine Gastroenterology
DX: K74.60 Unspecified cirrhosis of liver (principal); I50.32 Chronic diastolic (congestive) heart failure; D50.9 Iron deficiency anemia, unspecified
CPT/HCPCS: 36415; 82105; 85025; 85610; 85730

== ENCOUNTER → 2018-02-19 | Outpatient (CLI) | payer MEDICARE, OTHER ==
--- NOTE | 2018-02-19 11:43 | US ---
EXAMINATION TYPE: US liver DATE OF EXAM: 02/19/2018 COMPARISON: NONE CLINICAL HISTORY: K74.60 CIRRHOSIS OF LIVER. non alcoholic cirrhosis; gallbladder removed EXAM MEASUREMENTS: Liver Length: 17.8 cm Gallbladder Wall: surgically removed CBD: 1.1 cm Right Kidney: 10.3 x 5.9 x 4.4 cm Pancreas: hyperechoic and heterogeneous tail Liver: attenuated posteriorly; no discrete mass. Poor hepatic vein PW Doppler signal as only to and fro flow is noted in right hepatic vein after multiple attempts and no other hepatic veins seen for p atency; Poor to no color flow seen in IVC at liver in SAG or MACHADO views with multiple setting changes to color flow sensitivity; MPV flow is to liver Gallbladder: surgically removed Evidence for sonographic Perez's sign: no CBD: dilated greater than1.0cm post cholecystectomy Right Kidney: wnl IMPRESSION: 1. Heterogenous appearance to the enlarged liver. Lobulated borders are not identified. No discrete m asses are evident. There is poor visualized portal venous flow. 2. Poor blood flow within the inferior vena cava.
== END | disposition home or self-care (01) ==
LOC: RADUSWWP 06:46
PROVIDERS: ATTEND Internal Medicine Gastroenterology
DX: R16.0 Hepatomegaly, not elsewhere classified (principal)
CPT/HCPCS: 76705

== ENCOUNTER 2018-02-21 07:02 | Observation (INO) | payer MEDICARE, OTHER ==
[2018-02-21] MEDS ORDERED: NITROGLYCERIN OINT 1 INCH/GM PACKET TOPICAL STA (07:13)
[2018-02-21] MEDS ORDERED: ASPIRIN 81 MG PO STA (07:13)
--- NOTE | 2018-02-21 07:17 | ED ---
General Adult HPI - General Chief complaint: Chest Pain Stated complaint: Chest Pain Time Seen by Provider: 02/21/18 07:05 Source: patient, EMS, RN notes reviewed Mode of arrival: EMS Limitations: no limitations - History of Present Illness Initial comments: Patient is a pleasant 72-year-old female presenting to the emergency Department with complaints of chest discomfort. Patient has had exertional dyspnea for the past couple of days. This morning patient did have chest pressure that was somewhat severe. Discomfort is now resolved. Patient did have some dyspnea with the chest pressure as well. No associated nausea or vomiting. No history of similar symptoms previously. No fevers. No leg pain or leg swelling. There is some radiation towards the neck. - Related Data Home Medications Medication Instructions Recorded Confirmed HYDROcodone/APAP 10-325MG [[employer] 1 tab PO Q6H PRN 05/14/17 01/11/18 10-325] Insulin Detemir [Levemir] 62 unit SQ BID 05/14/17 01/11/18 sitaGLIPtin PHOS/metFORMIN HCL 2 tab PO W/SUPPER 05/14/17 01/11/18 [Janumet Xr 50-1,000 mg Tablet] Insulin Glulisine [Apidra] See Protocol SQ AC-TID 10/09/17 01/11/18 Atorvastatin [Lipitor] 40 mg PO HS 01/11/18 01/11/18 Pramipexole Di-HCl [Mirapex] 0.75 mg PO BID 01/11/18 01/11/18 Previous Rx's Medication Instructions Recorded Calcium Carb-Vit D 500Mg-200Un 2 each PO BID-W/MEALS #30 tab 01/12/18 [Oscal 500+D] Magnesium Oxide [Mag-Ox] 400 mg PO DAILY #10 tablet 01/12/18 Pantoprazole [Protonix] 40 mg PO AC-BRKFST tablet. 01/12/18 Allergies Allergy/AdvReac Type Severity Reaction Status Date / Time pentazocine [From [place]] Allergy Hallucinati Verified 02/21/18 07:06 ons Review of Systems ROS Statement: Those systems with pertinent positive or pertinent negative responses have been documented in the HPI. ROS Other: All systems not noted in ROS Statement are negative. Constitutional: Denies: fever Eyes: Denies: eye pain ENT: Denies: ear pain Respiratory: Reports: dyspnea. Denies: cough Cardiovascular: Reports: chest pain Endocrine: Reports: fatigue Gastrointestinal: Denies: abdominal pain Genitourinary: Denies: dysuria Musculoskeletal: Denies: back pain Skin: Denies: rash Neurological: Denies: weakness Past Medical History Past Medical History: Heart Failure, Diabetes Mellitus, GERD/Reflux, GI Bleed, Hypertension, Liver Disease Additional Past Medical History / Comment(s): Pt currently has UTI and is on ABX. Other hx: Pt is followed by Dr. Washington for anemia and has had several iron infusions/blood transfusions, past bleeding gastric ulcers, rectal bleed, nonalcoholic liver cirrhosis, chronic diarrhea past 3 years since she states she had intestinal bacterial infection, IDDM type II-blood sugar goes extremely high with steroids, RLS, low back/L hip pain, clausterphobia. History of Any Multi-Drug Resistant Organisms: None Reported Past Surgical History: Hysterectomy, Orthopedic Surgery, Tonsillectomy Additional Past Surgical History / Comment(s): Hemorrhagic cyst removed from right ureter; Right foot surgery d/t crush injury; Left hip pain stimulator implanted, Steel iris in right arm, EGDs/colonoscopies, bone marrow aspirations, low back and cervical injections for pain, bilateral cataract removals with lens implants. Past Anesthesia/Blood Transfusion Reactions: No Reported Reaction, Motion Sickness Additional Past Anesthesia/Blood Transfusion Reaction / Comment(s): Pt has had several blood transfusions without reaction. Pt has clausterphobia. Past Psychological History: No Psychological Hx Reported Smoking Status: Former smoker Past Alcohol Use History: None Reported Past Drug Use History: None Reported - Past Family History Father Additional Family Medical History / Comment(s): Father was an alcoholic but was sober for the last 9 yrs of his life. Mother Family Medical History: Coronary Artery Disease (CAD), Diabetes Mellitus Additional Family Medical History / Comment(s): Low hgb. She during a colonoscopy. She had 4 vessel CABG General Exam Limitations: no limitations General appearance: alert, in no apparent distress Head exam: Present: atraumatic Eye exam: Present: normal appearance, PERRL ENT exam: Present: normal oropharynx Neck exam: Present: normal inspection Respiratory exam: Present: normal lung sounds bilaterally Cardiovascular Exam: Present: regular rate, normal rhythm Expanded Peripheral pulses: 2+: Radial (R), Radial (L), Dorsalis Pedis (R), Dorsalis Pedis (L) GI/Abdominal exam: Present: soft. Absent: tenderness Extremities exam: Present: normal inspection. Absent: pedal edema, calf tenderness Neurological exam: Present: alert Psychiatric exam: Present: normal affect, normal mood Skin exam: Present: normal color Course Vital Signs 02/21/18 02/21/18 07:03 08:03 Temperature 98.2 F Pulse Rate 85 75 Respiratory 18 16 Rate Blood Pressure 178/72 124/57 O2 Sat by Pulse 98 99 Oximetry EKG Findings - EKG Comments: EKG Findings:: Sinus rhythm at 81. PVC present. ME 152. QRS 66. QT 366. QTc 425. Normal axis. Normal QRS. No acute ST change. Medical Decision Making - Medical Decision Making Patient reevaluated and resting comfortably in bed. Patient and family updated on results and plan. Case was discussed in detail with Dr. Hernández, who will admit for Dr. Collins. - Lab Data Result diagrams: 02/21/18 07:15 02/21/18 07:15 Lab Results 02/21/18 02/21/18 02/21/18 Range/Units 07:15 07:15 07:15 WBC 4.7 (3.8-10.6) k/uL RBC 3.30 L (3.80-5.40) m/uL Hgb 8.6 L (11.4-16.0) gm/dL Hct 28.5 L (34.0-46.0) % MCV 86.3 (80.0-100.0) fL MCH 26.0 (25.0-35.0) pg MCHC 30.2 L (31.0-37.0) g/dL RDW 15.0 (11.5-15.5) % Plt Count 136 L (150-450) k/uL Neutrophils % 63 % Lymphocytes % 27 % Monocytes % 6 % Eosinophils % 2 % Basophils % 1 % Neutrophils # 2.9 (1.3-7.7) k/uL Lymphocytes # 1.2 (1.0-4.8) k/uL Monocytes # 0.3 (0-1.0) k/uL Eosinophils # 0.1 (0-0.7) k/uL Basophils # 0.0 (0-0.2) k/uL Hypochromasia Marked PT (9.0-12.0) sec INR (<1.2) APTT (22.0-30.0) sec D-Dimer (<0.60) mg/L FEU Sodium 143 (137-145) mmol/L Potassium 4.8 (3.5-5.1) mmol/L Chloride 110 H (98-107) mmol/L Carbon Dioxide 22 (22-30) mmol/L Anion Gap 11 mmol/L BUN 13 (7-17) mg/dL Creatinine 0.70 (0.52-1.04) mg/dL Est GFR (CKD-EPI)AfAm >90 (>60 ml/min/1.73 sqM) Est GFR (CKD-EPI)NonAf 88 (>60 ml/min/1.73 sqM) Glucose 168 H (74-99) mg/dL Calcium 9.2 (8.4-10.2) mg/dL Magnesium 1.2 L (1.6-2.3) mg/dL Total Bilirubin 0.5 (0.2-1.3) mg/dL AST 33 (14-36) U/L ALT 23 (9-52) U/L Alkaline Phosphatase 77 (38-126) U/L Total Creatine Kinase 46 (30-135) U/L CK-MB (CK-2) 0.8 (0.0-2.4) ng/mL CK-MB (CK-2) Rel Index 1.7 Troponin I <0.012 (0.000-0.034) ng/mL NT-Pro-B Natriuret Pep pg/mL Total Protein 7.2 (6.3-8.2) g/dL Albumin 3.8 (3.5-5.0) g/dL 02/21/18 02/21/18 Range/Units 07:15 07:15 WBC (3.8-10.6) k/uL RBC (3.80-5.40) m/uL Hgb (11.4-16.0) gm/dL Hct (34.0-46.0) % MCV (80.0-100.0) fL MCH (25.0-35.0) pg MCHC (31.0-37.0) g/dL RDW (11.5-15.5) % Plt Count (150-450) k/uL Neutrophils % % Lymphocytes % % Monocytes % % Eosinophils % % Basophils % % Neutrophils # (1.3-7.7) k/uL Lymphocytes # (1.0-4.8) k/uL Monocytes # (0-1.0) k/uL Eosinophils # (0-0.7) k/uL Basophils # (0-0.2) k/uL Hypochromasia PT 11.4 (9.0-12.0) sec INR 1.2 H (<1.2) APTT 28.2 (22.0-30.0) sec D-Dimer 0.56 (<0.60) mg/L FEU Sodium (137-145) mmol/L Potassium (3.5-5.1) mmol/L Chloride (98-107) mmol/L Carbon Dioxide (22-30) mmol/L Anion Gap mmol/L BUN (7-17) mg/dL Creatinine (0.52-1.04) mg/dL Est GFR (CKD-EPI)AfAm (>60 ml/min/1.73 sqM) Est GFR (CKD-EPI)NonAf (>60 ml/min/1.73 sqM) Glucose (74-99) mg/dL Calcium (8.4-10.2) mg/dL Magnesium (1.6-2.3) mg/dL Total Bilirubin (0.2-1.3) mg/dL AST (14-36) U/L ALT (9-52) U/L Alkaline Phosphatase (38-126) U/L Total Creatine Kinase (30-135) U/L CK-MB (CK-2) (0.0-2.4) ng/mL CK-MB (CK-2) Rel Index Troponin I (0.000-0.034) ng/mL NT-Pro-B Natriuret Pep 156 pg/mL Total Protein (6.3-8.2) g/dL Albumin (3.5-5.0) g/dL - Radiology Data Radiology results: image reviewed (Chest x-ray shows cardiomegaly. There also appears to be some vascular congestion.) Disposition Clinical Impression: Chest pain, Hypomagnesemia Disposition: ADMITTED IP TO THIS HOSP Is patient prescribed a controlled substance at d/c from ED?: No Referrals: Jason Morse MD [Primary Care Provider] - 1-2 days Decision Time: 08:46
[2018-02-21 07:35] LABS: Basophils % (A) 1 %; Eosinophils # (A) 0.1 k/uL (0-0.7); Eosinophils % (A) 2 %; HCT 28.5 % (34.0-46.0); HGB 8.6 gm/dL (11.4-16.0); Hypochromasia Marked; Lymphocytes # (A) 1.2 k/uL (1.0-4.8); Lymphocytes % (A) 27 %; MCHC 30.2 g/dL (31.0-37.0); MCV 86.3 fL (80.0-100.0); Mean Platelet Volume 8.4; Monocytes # (A) 0.3 k/uL (0-1.0); Monocytes % (A) 6 %; Neutrophils # (A) 2.9 k/uL (1.3-7.7); Neutrophils % (A) 63 %; Platelet Count 136 k/uL (150-450); WBC 4.7 k/uL (3.8-10.6)
--- NOTE | 2018-02-21 07:38 | XR ---
EXAMINATION TYPE: XR chest 2V DATE OF EXAM: 02/21/2018 HISTORY: Chest Pain. REFERENCE: Previous study dated 01/11/2018. FINDINGS: There is a right shoulder hemiarthroplasty in place. Heart size upper limits of normal. There is vascular congestion and subtle interstitial change. Pleur al spaces are clear. IMPRESSION: CARDIOMEGALY AND VASCULAR CONGESTION. I COULD NOT EXCLUDE EARLY PULMONARY EDEMA.
[2018-02-21 07:42] LABS: ALT 23 U/L (9-52); AST 33 U/L (14-36); Albumin 3.8 g/dL (3.5-5.0); Alkaline Phosphatase 77 U/L (38-126); Anion Gap 11 mmol/L; Blood Urea Nitrogen 13 mg/dL (7-17); Calcium 9.2 mg/dL (8.4-10.2); Carbon Dioxide 22 mmol/L (22-30); Chloride 110 mmol/L (98-107); Glucose 168 mg/dL (74-99); Magnesium 1.2 mg/dL (1.6-2.3); Potassium 4.8 mmol/L (3.5-5.1); Sodium 143 mmol/L (137-145); Total Bilirubin 0.5 mg/dL (0.2-1.3); Total Protein 7.2 g/dL (6.3-8.2)
[2018-02-21 07:46] LABS: D-Dimer 0.56 mg/L FEU (<0.60); INR 1.2 (<1.2); Partial Thromboplastin Time 28.2 sec (22.0-30.0); Prothrombin Time 11.4 sec (9.0-12.0)
[2018-02-21] MEDS ORDERED: MAGNESIUM SULFATE-D5W PMX 1 GM in DEXTROSE/WATER 1 100ML.BAG IVPB ONE (07:46)
[2018-02-21 07:51] LABS: Creatine Kinase 46 U/L (30-135)
[2018-02-21] MEDS: MAGNESIUM OXIDE 400 MG TAB PO SCH ×2 (08:00→20:02)
[2018-02-21 08:03] LABS: Creatine Kinase MB 0.8 ng/mL (0.0-2.4); Troponin I <0.012 ng/mL (0.000-0.034)
[2018-02-21] MEDS ORDERED: NITROGLYCERIN SL TABS 0.4 MG TAB SUBLINGUAL PRN (08:47)
[2018-02-21 09:16] VITALS: RESP 18
[2018-02-21] MEDS: NITROGLYCERIN OINT 1 INCH/GM PACKET TOPICAL SCH ×3 (11:25→23:39)
[2018-02-21 11:50] LABS: Glucose,Whole Blood 177 mg/dL (75-99)
--- NOTE | 2018-02-21 11:51 | P.HPIM ---
History of Present Illness H&P Date: 02/21/18 Chief Complaint: Chest pain and shortness of air The patient is a 72-year-old female with a past smoker history of essential hypertension, type 2 diabetes, chronic anemia of unknown etiology who presents to the ER via private vehicle with chief complaint of progressive worsening shortness of breath. The patient reports worsening shortness of breath with exertion over the last several days, she is not able to go up a flight of stairs without getting dyspneic. This morning specifically she began having midsternal chest pressure described as someone sitting on her chest rated at 6 out of 10 with radiation into her neck, she denies any associated diaphoresis nausea vomiting, palpitations or lower extremity swelling. She reports seeing Dr. Pablo in clinic a few weeks ago and supposedly had a echocardiogram and carotid Dopplers. She reports having a stress test a few years ago. The patient reports a history of chronic anemia of unknown etiology, she reports she's had several EGD colonoscopies without any GI bleeding source, she also reports a history of having multiple bone marrow biopsies that were unremarkable. She denies any bright red blood per rectum or dark melanotic stools. In the ER she had a conference a workup, EKG showed sinus mechanism without any acute signs of ischemia troponins were less than 0.012. Patient was normotensive on arrival. She was started on aspirin, nitroglycerin and her magnesium was replaced as it was noted to be low at 1.2. Hemoglobin and hematocrit was 8.6 and 28.5 respectively. She was recommended for admission to rule out ACS Review of Systems Pertinent positives per HPI, all other review of systems are otherwise negative Past Medical History Past Medical History: Heart Failure, Diabetes Mellitus, GERD/Reflux, GI Bleed, Hypertension, Liver Disease Additional Past Medical History / Comment(s): Pt currently has UTI and is on ABX. Other hx: Pt is followed by Dr. Washington for anemia and has had several iron infusions/blood transfusions, past bleeding gastric ulcers, rectal bleed, nonalcoholic liver cirrhosis, chronic diarrhea past 3 years since she states she had intestinal bacterial infection, IDDM type II-blood sugar goes extremely high with steroids, RLS, low back/L hip pain, clausterphobia. History of Any Multi-Drug Resistant Organisms: None Reported Past Surgical History: Hysterectomy, Orthopedic Surgery, Tonsillectomy Additional Past Surgical History / Comment(s): Hemorrhagic cyst removed from right ureter; Right foot surgery d/t crush injury; Left hip pain stimulator implanted, Steel iris in right arm, EGDs/colonoscopies, bone marrow aspirations, low back and cervical injections for pain, bilateral cataract removals with lens implants. Past Anesthesia/Blood Transfusion Reactions: No Reported Reaction, Motion Sickness Additional Past Anesthesia/Blood Transfusion Reaction / Comment(s): Pt has had several blood transfusions without reaction. Pt has clausterphobia. Smoking Status: Former smoker - Past Family History Father Additional Family Medical History / Comment(s): Father was an alcoholic but was sober for the last 9 yrs of his life. Mother Family Medical History: Coronary Artery Disease (CAD), Diabetes Mellitus Additional Family Medical History / Comment(s): Low hgb. She during a colonoscopy. She had 4 vessel CABG Medications and Allergies Home Medications Medication Instructions Recorded Confirmed Type HYDROcodone/APAP 10-325MG [[place] 1 tab PO Q6H PRN 05/14/17 01/11/18 History 10-325] Insulin Detemir [Levemir] 62 unit SQ BID 05/14/17 01/11/18 History sitaGLIPtin PHOS/metFORMIN HCL 2 tab PO W/SUPPER 05/14/17 01/11/18 History [Janumet Xr 50-1,000 mg Tablet] Insulin Glulisine [Apidra] See Protocol SQ AC-TID 10/09/17 01/11/18 History Atorvastatin [Lipitor] 40 mg PO HS 01/11/18 01/11/18 History Pramipexole Di-HCl [Mirapex] 0.75 mg PO BID 01/11/18 01/11/18 History Calcium Carb-Vit D 500Mg-200Un 2 each PO BID-W/MEALS #30 tab 01/12/18 Rx [Oscal 500+D] Magnesium Oxide [Mag-Ox] 400 mg PO DAILY #10 tablet 01/12/18 Rx Pantoprazole [Protonix] 40 mg PO AC-BRKFST tablet. 01/12/18 Rx Allergies Allergy/AdvReac Type Severity Reaction Status Date / Time pentazocine [From [place]] Allergy Hallucinati Verified 02/21/18 07:06 ons Physical Exam Vitals: Vital Signs Temp Pulse Pulse Resp BP BP Pulse Ox 02/21/18 09:53 98 09/16/18 09:15 98.1 F 84 18 138/61 99 02/21/18 09:12 97.7 F 81 16 146/81 97 02/21/18 08:03 75 16 124/57 99 02/21/18 07:03 98.2 F 85 18 178/72 98 Intake and Output 02/20/18 02/21/18 02/21/18 22:59 06:59 14:59 Other: Voiding Method Toilet Weight 85.8 kg Constitutional: No acute distress, conversant, pleasant Eyes: Anicteric sclerae, moist conjunctiva, no lid-lag, PERRLA ENMT: NC/AT,Oropharynx clear, no erythema, exudates Neck:Supple, FROM, no masses, or JVD, No carotid bruits; No thyromegaly Lungs: Clear to auscultation, Clear to percussion, Normal respiratory effort, no accessory muscle use Cardiovascular: Heart regular in rate and rhythm, No murmurs, gallops, or rubs no peripheral edema Abdominal: Soft Nontender, nom distended, no guarding, no rebound or rigidity, Normoactive bowel sounds No hepatomegaly, No splenomegaly, No palpable mass No abdominal wall hernia noted Skin: Normal temperature, tone, texture, turgor, No induration No subcutaneous nodules, No rash, lesions, No ulcers Extremities:No digital cyanosis No clubbing, Pedal pulses intact and symmetrical Radial pulses intact and symmetrical Normal gait and station, No calf tenderness Psychiatric: Alert and oriented to person, place and time, Appropriate affect Intact judgement Neuro: Muscles Strength 5/5 in all 4 extremities, Sensation to light touch grossly present throughout, Cranial nerves II-XII grossly intact. No focal sensory deficits Results CBC & Chem 7: 02/21/18 07:15 02/21/18 07:15 Labs: Abnormal Lab Results - Last 24 Hours (Table) 02/21/18 02/21/18 02/21/18 Range/Units 07:15 07:15 07:15 RBC 3.30 L (3.80-5.40) m/uL Hgb 8.6 L (11.4-16.0) gm/dL Hct 28.5 L (34.0-46.0) % MCHC 30.2 L (31.0-37.0) g/dL Plt Count 136 L (150-450) k/uL INR 1.2 H (<1.2) Chloride 110 H (98-107) mmol/L Glucose 168 H (74-99) mg/dL Magnesium 1.2 L (1.6-2.3) mg/dL Thrombosis Risk Factor Assmnt - Choose All That Apply Any of the Below Risk Factors Present?: Yes Each Factor Represents 1 point: Obesity (BMI >25) Other Risk Factors: Yes Each Risk Factor Represents 2 Points: Age 61-74 years Thrombosis Risk Factor Assessment Total Risk Factor Score: 3 Thrombosis Risk Factor Assessment Level: Moderate Risk Assessment and Plan (1) Atypical chest pain Current Visit: Yes Status: Acute Code(s): R07.89 - OTHER CHEST PAIN SNOMED Code(s): 715996951 (2) Type 2 diabetes mellitus Current Visit: Yes Status: Acute Code(s): E11.9 - TYPE 2 DIABETES MELLITUS WITHOUT COMPLICATIONS SNOMED Code(s): 23398508 (3) Hypomagnesemia Current Visit: Yes Status: Acute Code(s): E83.42 - HYPOMAGNESEMIA SNOMED Code(s): 239446066 (4) Chronic anemia Current Visit: Yes Status: Acute Code(s): D64.9 - ANEMIA, UNSPECIFIED SNOMED Code(s): 129618315 (5) History of hypertension Current Visit: Yes Status: Acute Code(s): Z86.79 - PERSONAL HISTORY OF OTHER DISEASES OF THE CIRCULATORY SYSTEM SNOMED Code(s): 414997122 Plan: The patient is on observation with atypical chest pain With need to rule out acute coronary syndrome, her initial EKG and troponin are negative for any suggestion of acute ischemia. The patient does have ongoing risk factors including dyslipidemia and type 2 diabetes, history of hypertension no longer on antihypertensive therapy, we'll continue routine chest pain orders, trend her troponins, consult cardiology. Patient with probably a good candidate for a Lexiscan stress test. I will resume her diabetic regimen check an A1c do Accu -Cheks with correctional scale coverage in place. We'll continue to follow her clinical course.
[2018-02-21] MEDS: INSULIN ASPART 100 UNIT/ML 1 ML 10 ML VIAL SQ SCH ×3 (12:49→20:03)
[2018-02-21 13:36] LABS: Creatine Kinase 37 U/L (30-135)
[2018-02-21 13:47] LABS: Creatine Kinase MB 0.7 ng/mL (0.0-2.4); Troponin I <0.012 ng/mL (0.000-0.034)
[2018-02-21] MEDS ORDERED: ACETAMINOPHEN TAB 325 MG TAB PO PRN (14:02)
[2018-02-21 16:50] LABS: Glucose,Whole Blood 244 mg/dL (75-99)
[2018-02-21] MEDS: HYDROcodone/APAP 10-325MG 1 EACH TAB PO PRN (17:14)
[2018-02-21] MEDS: CALCIUM CARB-VIT D 500MG-200UN 1 EACH TAB PO SCH (17:14)
[2018-02-21 20:01] LABS: Glucose,Whole Blood 189 mg/dL (75-99)
[2018-02-21] MEDS: PRAMIPEXOLE 0.25 MG TAB PO SCH (20:02)
[2018-02-21] MEDS: INSULIN DETEMIR 100 UNIT/ML 10 ML VIAL SQ SCH (20:03)
[2018-02-21 20:14] LABS: Creatine Kinase 35 U/L (30-135)
[2018-02-21 20:27] LABS: Creatine Kinase MB 0.6 ng/mL (0.0-2.4); Troponin I <0.012 ng/mL (0.000-0.034)
[2018-02-21] MEDS ORDERED: ATORVASTATIN 40 MG TAB PO SCH (21:00)
[2018-02-21 22:26] LABS: Cholesterol 123 mg/dL (<200); HDL Cholesterol 47 mg/dL (40-60); LDL Cholesterol,Calculated 40 mg/dL (0-99); Triglycerides 180 mg/dL (<150)
[2018-02-22] MEDS: NITROGLYCERIN OINT 1 INCH/GM PACKET TOPICAL SCH (05:14)
[2018-02-22 07:11] LABS: Glucose,Whole Blood 190 mg/dL (75-99)
[2018-02-22] MEDS ORDERED: PANTOPRAZOLE 40 MG TABLET PO SCH (07:30)
[2018-02-22] MEDS: HYDROcodone/APAP 10-325MG 1 EACH TAB PO PRN ×2 (07:58→13:55)
[2018-02-22] MEDS ORDERED: CHOLECALCIFEROL 1,000 UNIT TAB PO SCH (09:00)
[2018-02-22] MEDS ORDERED: ASPIRIN 325 MG TAB PO SCH (09:00)
[2018-02-22] MEDS ORDERED: AMINOPHYLLINE 500 MG/20 ML VIAL IV PRN (10:48)
[2018-02-22] MEDS ORDERED: REGADENOSON 0.4 MG/5 ML SYRINGE IV ONE (10:48)
[2018-02-22 11:04] LABS: Hemoglobin A1C 8.1 % (4.0-6.0)
--- NOTE | 2018-02-22 12:00 | P.CRDCN ---
History of Present Illness History of present illness: Mrs. Johnston is a pleasant 72-year-old female past medical history significant for diabetes mellitus, hypertension, chronic anemia requiring blood transfusions in the past, liver cirrhosis, former nicotine dependence quit 2009 and history of chronic diastolic heart failure. She follows with Dr. Murray in the office. We have been asked to see her in consultation for chest pain. She states she woke up yesterday with heavy pressure sensation in the mid-sternal region that radiated up into her upper chest and lower neck. The pain persisted for 8-10 minutes, EMS called and the pain ultimately subsided on its own with no alleviating factors or medications administered by EMS. Associated with shortness of breath on exertion. She moved here from [place] last year and states while she was living in [place] she underwent blood transfusions whenever her hgb dropped below 10. Since living here recommendations for iron infusions have been made. She feels as though she gets very symptomatic when her hgb drops below 10 with symptoms of extreme fatigue and exertional shortness of breath. She has been feeling the impact of low hgb the last few weeks but has never felt chest pain in the past. At the time of my exam she is seen and examined resting comfortably in bed in no acute distress. She was up walking in the halls without oxygen and maintained her saturations greater then 95%. EKG revels sinus mechanism with no acute ST or T-wave abnormalities. Chest xray reveals mild pulmonary congestion. Laboratory data reviewed, cardiac enzymes negative 3, hgb 8.6, d-dimer 0.56, sodium 143, potassium 4.8, magnesium 1.2, creatinine 0.7, NTproBNP 156, LDL 40, HDL 47, triglycerides 180, total cholesterol 123. Current cardiac medications include atorvastatin 40 mg daily, magnesium supplementation. She also takes nexium, janument, mirapex, levemir and norco. Echocardiogram obtained in the office 01/20/2018 reveals preserved left ventricular systolic function with ejection fraction 55%, normal diastolic function and mildly dilated left atrium. She underwent cardiac catheterization 2013 in [place] that revealed 50% diseae of RCA. Review of Systems At the time of my exam: CONSTITUTIONAL: Denies fever. Denies chills. EYES: Denies blurred vision. Denies vision changes. Denies eye pain. EARS, NOSE, MOUTH & THROAT: Denies headache. Denies sore throat. Denies ear pain. CARDIOVASCULAR: Denies chest pain. Complains of shortness of breath. Denies orthopnea. Denies PND. Denies palpitations. RESPIRATORY: Denies cough. GASTROINTESTINAL: Denies abdominal pain. Denies diarrhea. Denies constipation. Denies nausea. Denies vomiting. MUSCULOSKELETAL: Denies myalgias. INTEGUMENTARY: Denies pruitis. Denies rash. NEUROLOGIC: Denies numbness. Denies tingling. Denies weakness. PSYCHIATRIC: Denies anxiety. Denies depression. ENDOCRINE: Complains of fatigue. Denies weight change. Denies polydipsia. Denies polyurina. GENITOURINARY: Denies burning, hematuria or urgency with micturation. HEMATOLOGIC: Denies history of anemia. Denies bleeding. Past Medical History Past Medical History: Heart Failure, Diabetes Mellitus, GERD/Reflux, GI Bleed, Hypertension, Liver Disease Additional Past Medical History / Comment(s): Pt currently has UTI and is on ABX. Other hx: Pt is followed by Dr. Washington for anemia and has had several iron infusions/blood transfusions, past bleeding gastric ulcers, rectal bleed, nonalcoholic liver cirrhosis, chronic diarrhea past 3 years since she states she had intestinal bacterial infection, IDDM type II-blood sugar goes extremely high with steroids, RLS, low back/L hip pain, clausterphobia. History of Any Multi-Drug Resistant Organisms: None Reported Past Surgical History: Hysterectomy, Orthopedic Surgery, Tonsillectomy Additional Past Surgical History / Comment(s): Hemorrhagic cyst removed from right ureter; Right foot surgery d/t crush injury; Left hip pain stimulator implanted, Steel iris in right arm, EGDs/colonoscopies, bone marrow aspirations, low back and cervical injections for pain, bilateral cataract removals with lens implants. Past Anesthesia/Blood Transfusion Reactions: No Reported Reaction, Motion Sickness Additional Past Anesthesia/Blood Transfusion Reaction / Comment(s): Pt has had several blood transfusions without reaction. Pt has clausterphobia. Smoking Status: Former smoker - Past Family History Father Additional Family Medical History / Comment(s): Father was an alcoholic but was sober for the last 9 yrs of his life. Mother Family Medical History: Coronary Artery Disease (CAD), Diabetes Mellitus Additional Family Medical History / Comment(s): Low hgb. She during a colonoscopy. She had 4 vessel CABG Medications and Allergies Home Medications Medication Instructions Recorded Confirmed Type HYDROcodone/APAP 10-325MG [[place] 1 tab PO Q6H PRN 05/14/17 02/21/18 History 10-325] Insulin Detemir [Levemir] 62 unit SQ BID 05/14/17 02/21/18 History sitaGLIPtin PHOS/metFORMIN HCL 2 tab PO W/SUPPER 05/14/17 02/21/18 History [Janumet Xr 50-1,000 mg Tablet] Insulin Glulisine [Apidra] See Protocol SQ AC-TID 10/09/17 02/21/18 History Atorvastatin [Lipitor] 40 mg PO HS 01/11/18 02/21/18 History Pramipexole Di-HCl [Mirapex] 0.75 mg PO BID 01/11/18 02/21/18 History Magnesium Oxide [Mag-Ox] 400 mg PO DAILY #10 tablet 01/12/18 02/21/18 Rx Aspirin/Acetaminophen/Caffeine 1 tab PO Q4H PRN 02/21/18 02/21/18 History [Excedrin Migraine Caplet] Calcium Carb-Vit D 500Mg-200Un 2 tab PO BID-W/MEALS 02/21/18 02/21/18 History [Oscal 500+D] Cholecalciferol [Vitamin D3] 1,000 unit PO DAILY 02/21/18 02/21/18 History Esomeprazole Magnesium [NexIUM] 40 mg PO DAILY 02/21/18 02/21/18 History Vitamin B Complex 1 cap PO DAILY 02/21/18 02/21/18 History Allergies Allergy/AdvReac Type Severity Reaction Status Date / Time pentazocine [From [place]] Allergy Hallucinati Verified 02/21/18 07:06 ons Physical Exam Vitals: Vital Signs Temp Pulse Pulse Resp BP BP Pulse Ox 02/22/18 07:40 98.0 F 69 18 142/70 97 02/22/18 03:54 98.3 F 78 18 148/69 96 02/21/18 23:50 98.3 F 75 16 142/70 99 02/21/18 20:00 97.8 F 69 18 147/64 95 02/21/18 16:00 97.8 F 82 18 130/81 97 02/21/18 12:00 98.0 F 72 18 122/76 98 02/21/18 09:53 98 02/21/18 09:15 98.1 F 84 18 138/61 99 02/21/18 09:12 97.7 F 81 16 146/81 97 Intake and Output 02/21/18 02/22/18 02/22/18 22:59 06:59 14:59 Other: Voiding Method Toilet Toilet # Voids 1 1 Blood pressure 112/72 heart rate 67 afebrile maintaining oxygen saturation on room air GENERAL: This is a 72-year-old female in no apparent distress at the time of my examination. HEENT: Head is atraumatic, normocephalic. Pupils are equal, round. Sclerae anicteric. Conjunctivae are clear. Mucous membranes of the mouth are moist. Neck is supple. There is no jugular venous distention. No carotid bruit is heard. LUNGS: Clear to auscultation no wheezes, rales or rhonchi. No chest wall tenderness is noted on palpation or with deep breathing. HEART: Regular rate and rhythm without murmurs, rubs or gallops. S1 and S2 heard. ABDOMEN: Soft, nontender. Bowel sounds are heard. No organomegaly noted. EXTREMITIES: No evidence of peripheral edema and no calf tenderness noted. VASCULAR: Radial and dorsalis pedis pulses palpated, no evidence of clubbing. NEUROLOGIC: Patient is awake, alert and oriented x3. Results 02/21/18 07:15 02/21/18 07:15 Cardiac Enzymes 02/21/18 02/21/18 Range/Units 12:53 19:21 CK-MB (CK-2) 0.7 0.6 (0.0-2.4) ng/mL Troponin I <0.012 <0.012 (0.000-0.034) ng/mL Lipids 02/21/18 Range/Units 07:15 Triglycerides 180 H (<150) mg/dL Cholesterol 123 (<200) mg/dL HDL Cholesterol 47 (40-60) mg/dL Current Medications Generic Name Dose Route Start Last Admin Trade Name Freq PRN Reason Stop Dose Admin Acetaminophen 650 mg 02/21/18 14:02 02/21/18 14:06 Tylenol Tab PO 650 mg Q6HR PRN Administration Fever and/ or Mild Pain Hydrocodone Bitart/Acetaminophen 1 each 02/21/18 17:07 02/22/18 07:58 Theresa 10 PO 1 each Q6H PRN Administration Pain Aspirin 325 mg 02/22/18 09:00 Aspirin PO DAILY [facility] Atorvastatin Calcium 40 mg 02/21/18 21:00 02/21/18 20:02 Lipitor PO 40 mg HS GERTRUDIS Administration Calcium Carbonate 2 each 02/21/18 17:30 02/21/18 17:14 Oscal 500+D PO 2 each BID-W/MEALS [facility] Administration Cholecalciferol 1,000 unit 02/22/18 09:00 Vitamin D3 PO DAILY [facility] Insulin Aspart 0 unit 02/21/18 12:30 02/21/18 20:03 Novolog SQ 2 unit ACHS [facility] Administration Protocol Insulin Detemir 62 unit 02/21/18 21:00 02/21/18 20:03 Levemir SQ 62 unit BID [facility] Administration Magnesium Oxide 400 mg 02/21/18 08:00 02/21/18 20:02 Mag-Ox PO 400 mg BID [facility] Administration Nitroglycerin 1 inch 02/21/18 12:00 02/22/18 05:14 Nitro-Bid Oint TOPICAL Not Given Q6HR [facility] Nitroglycerin 0.4 mg 02/21/18 08:47 Nitrostat SUBLINGUAL Q5M PRN Chest Pain Pantoprazole Sodium 40 mg 02/22/18 07:30 Protonix PO AC-BRKFST [facility] Pramipexole Dihydrochloride 0.75 mg 02/21/18 21:00 02/21/18 20:02 Mirapex PO 0.75 mg BID [facility] Administration Sodium Chloride 10 ml 02/21/18 09:00 02/21/18 20:04 Saline Flush IV 10 ml BID [facility] Administration Intake and Output 02/21/18 02/22/18 02/22/18 22:59 06:59 14:59 Other: Voiding Method Toilet Toilet # Voids 1 1 02/21/18 07:15 02/21/18 07:15 Assessment and Plan Assessment: ASSESSMENT Chest pain, atypical for angina. An acute event has been ruled out with no EKG evidence of ischemia and negative cardiac enzymes. 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 Repeat magnesium level. Perform Lexiscan stress test to assess for reversible ischemic changes. Change aspirin order to 81 mg daily. If stress test is normal she is stable from a cardiac perspective, if abnormal we will consider coronary angiography per primary passenger screener Dr. Murray. Thank you kindly for this consultation. Nurse Practitioner note has been reviewed, I agree with a documented findings and plan of care. Patient was seen and examined.
[2018-02-22 13:19] LABS: Glucose,Whole Blood 127 mg/dL (75-99)
[2018-02-22] MEDS: INSULIN ASPART 100 UNIT/ML 1 ML 10 ML VIAL SQ SCH (13:19)
[2018-02-22] MEDS: INSULIN DETEMIR 100 UNIT/ML 10 ML VIAL SQ SCH (13:55)
[2018-02-22] MEDS: PRAMIPEXOLE 0.25 MG TAB PO SCH (13:56)
[2018-02-22] MEDS: MAGNESIUM OXIDE 400 MG TAB PO SCH (13:56)
[2018-02-22] MEDS: CALCIUM CARB-VIT D 500MG-200UN 1 EACH TAB PO SCH (13:56)
--- NOTE | 2018-02-22 14:06 | NM ---
EXAMINATION TYPE: NM stress lexiscan cardiolite DATE OF EXAM: 02/22/2018 COMPARISON: NONE HISTORY: 72-year-old female with chest pain and shortness of breath TECHNIQUE: After the intravenous administration of 9.7 mCi Tc 99m Sestamibi - Cardiolite resting SPE CT images acquired 45 minutes post injection. The patient received 0.4mg Lexiscan, 24.9 mCi Tc 99m Sestamibi - Stress images obtained [address] injection FINDINGS: Review of stress and rest SPECT images demonstrates no distinct perfusion abnormality. Gated analysi s shows normal wall motion with an estimated left ventricular ejection fraction of 69 %. TID is calc ulated at 0.92, within normal limits. IMPRESSION: No scintigraphic evidence for reversible ischemia.
--- NOTE | 2018-02-22 14:36 | EST ---
EXERCISE STRESS AGE: 72 SEX: F HT: 66" WT: 147 PROTOCOL: Stress Echo STAGE: DURATION OF EXERCISE: 9:01 HEART RATE REST: 67 BLOOD PRESSURE REST: 71/41 MAXIMUM HEART RATE ACHIEVED: 84 MAXIMUM BLOOD PRESSURE: 134/59 85% MPHR: 141 100% MPHR: 166 METS: 10.5 INDICATIONS: Chest pain. CLINICAL INFORMATION: A Lexiscan nuclear study was performed, peak heart rate of 84 was achieved. Maximum blood pressure of 134/59 mmHg was noted. Resting EKG shows normal sinus rhythm with normal [place] interval and QRS duration and normal ST-T waves. No ST-segment depression suggestive of ischemia is noted. The results of the nuclear study will follow. MMODL / IJN: [id number] /
[2018-02-22 15:55] VITALS: BP 126/76; PULSE 83; TEMP 97.9
[2018-02-22] MEDS ORDERED: MAGNESIUM OXIDE 400 MG TAB PO STA (16:43)
[2018-02-23] MEDS ORDERED: ASPIRIN 81 MG PO SCH (09:00)
--- NOTE | 2018-03-03 10:23 | P.DS ---
Providers Date of admission: 02/21/18 08:47 Expected date of discharge: 02/22/18 Attending physician: Seamus Hernández MD Consults: 02/21/18 08:47 Consult Physician Urgent Consulting Provider: Rip Murray Consult Reason/Comments: cp Do you want consulting provider notified?: Yes Primary care physician: Jason Morse - Discharge Diagnosis(es) (1) Atypical chest pain Status: Acute (2) Type 2 diabetes mellitus Status: Acute (3) Hypomagnesemia Status: Acute (4) Chronic anemia Status: Acute (5) History of hypertension Status: Acute Hospital Course: The patient is a 72-year-old female in observation with atypical chest pain with need to rule out acute coronary syndrome, EKG showed no evidence of ischemia and her cardiac enzymes are negative. Her previous heart cath in 2013 that showed intermediate coronary artery disease with 50% RCA disease. Cardiology was consulted and the patient was ordered to have a nuclear stress test done. Lexiscan stress was negative for any evidence of reversible ischemia. The patient was noted to be hypomagnesemic and this was replaced and she was subsequently discharged home in stable condition with a prescription for magnesium oxide 400 mg by mouth twice a day. The patient was instructed to follow-up with cardiology in their clinic. This discharge process took approximately 30 minutes Discharge physical Constitutional: No acute distress, conversant, pleasant Eyes: Anicteric sclerae, moist conjunctiva, no lid-lag, PERRLA ENMT: NC/AT,Oropharynx clear, no erythema, exudates Neck:Supple, FROM, no masses, or JVD, No carotid bruits; No thyromegaly Lungs: Clear to auscultation, Clear to percussion, Normal respiratory effort, no accessory muscle use Cardiovascular: Heart regular in rate and rhythm, No murmurs, gallops, or rubs no peripheral edema Abdominal: Soft Nontender, nom distended, no guarding, no rebound or rigidity, Normoactive bowel sounds No hepatomegaly, No splenomegaly, No palpable mass No abdominal wall hernia noted Skin: Normal temperature, tone, texture, turgor, No induration No subcutaneous nodules, No rash, lesions, No ulcers Extremities:No digital cyanosis No clubbing, Pedal pulses intact and symmetrical Radial pulses intact and symmetrical Normal gait and station, No calf tenderness Psychiatric: Alert and oriented to person, place and time, Appropriate affect Intact judgement Neuro: Muscles Strength 5/5 in all 4 extremities, Sensation to light touch grossly present throughout, Cranial nerves II-XII grossly intact. No focal sensory deficits Patient Condition at Discharge: Good Plan - Discharge Summary Discharge Rx Participant: No New Discharge Prescriptions: Continue HYDROcodone/APAP 10-325MG [[place] 10-325] 1 tab PO Q6H PRN PRN Reason: Pain Insulin Detemir [Levemir] 62 unit SQ BID sitaGLIPtin PHOS/metFORMIN HCL [Janumet Xr 50-1,000 mg Tablet] 2 tab PO W/ SUPPER Insulin Glulisine [Apidra] See Protocol SQ AC-TID Atorvastatin [Lipitor] 40 mg PO HS Pramipexole Di-HCl [Mirapex] 0.75 mg PO BID Esomeprazole Magnesium [NexIUM] 40 mg PO DAILY Calcium Carb-Vit D 500Mg-200Un [Oscal 500+D] 2 tab PO BID-W/MEALS Vitamin B Complex 1 cap PO DAILY Cholecalciferol [Vitamin D3] 1,000 unit PO DAILY Aspirin/Acetaminophen/Caffeine [Excedrin Migraine Caplet] 1 tab PO Q4H PRN PRN Reason: Migraine Headache Changed Magnesium Oxide [Mag-Ox] 400 mg PO BID #60 tablet Discharge Medication List HYDROcodone/APAP 10-325MG [[place] 10-325] 1 tab PO Q6H PRN 05/14/17 [History] Insulin Detemir [Levemir] 62 unit SQ BID 05/14/17 [History] sitaGLIPtin PHOS/metFORMIN HCL [Janumet Xr 50-1,000 mg Tablet] 2 tab PO W/ SUPPER 05/14/17 [History] Insulin Glulisine [Apidra] See Protocol SQ AC-TID 10/09/17 [History] Atorvastatin [Lipitor] 40 mg PO HS 01/11/18 [History] Pramipexole Di-HCl [Mirapex] 0.75 mg PO BID 01/11/18 [History] Aspirin/Acetaminophen/Caffeine [Excedrin Migraine Caplet] 1 tab PO Q4H PRN 02/21 [History] Calcium Carb-Vit D 500Mg-200Un [Oscal 500+D] 2 tab PO BID-W/MEALS 02/21/18 [ History] Cholecalciferol [Vitamin D3] 1,000 unit PO DAILY 02/21/18 [History] Esomeprazole Magnesium [NexIUM] 40 mg PO DAILY 02/21/18 [History] Vitamin B Complex 1 cap PO DAILY 02/21/18 [History] Magnesium Oxide [Mag-Ox] 400 mg PO BID #60 tablet 02/22/18 [Rx] Follow up Appointment(s)/Referral(s): Jason Morse MD [Primary Care Provider] - 1-2 days Discharge Disposition: HOME SELF-CARE
== END 2018-02-22 17:12 | disposition home or self-care (01) ==
LOC: EC 07:02 → 3OBS 08:47
PROVIDERS: ADMIT Family Medicine; ATTEND Family Medicine
DX: R07.89 Other chest pain (principal); E83.42 Hypomagnesemia; E11.9 Type 2 diabetes mellitus without complications; I25.10 Atherosclerotic heart disease of native coronary artery without angina pectoris; I11.0 Hypertensive heart disease with heart failure; I50.32 Chronic diastolic (congestive) heart failure; D64.9 Anemia, unspecified; E78.5 Hyperlipidemia, unspecified; K21.9 Gastro-esophageal reflux disease without esophagitis; K74.60 Unspecified cirrhosis of liver; G25.81 Restless legs syndrome; E66.9 Obesity, unspecified; Z68.36 Body mass index [BMI] 36.0-36.9, adult; F40.240 Claustrophobia; Z79.4 Long term (current) use of insulin; Z79.899 Other long term (current) drug therapy; Z88.5 Allergy status to narcotic agent; Z87.19 Personal history of other diseases of the digestive system; Z87.11 Personal history of peptic ulcer disease; Z87.891 Personal history of nicotine dependence; Z98.42 Cataract extraction status, left eye; Z98.41 Cataract extraction status, right eye; Z96.1 Presence of intraocular lens; Z97.8 Presence of other specified devices; Z96.611 Presence of right artificial shoulder joint; Z90.710 Acquired absence of both cervix and uterus; Z87.440 Personal history of urinary (tract) infections; Z81.1 Family history of alcohol abuse and dependence; Z83.3 Family history of diabetes mellitus; Z82.49 Family history of ischemic heart disease and other diseases of the circulatory system
CPT/HCPCS: 96365 ×2; 99285 ×2; 93005 ×2; 36415; 93017; 85379; 83880; 80061; 80053; 82550; 82553; 83735 ×2; 84484; 85025; 85610; 85730; 83036; 71046; 78452; G0378 ×2; A9500; J3475; J2785

== ENCOUNTER → 2018-08-12 | Outpatient (CLI) | payer MEDICARE, OTHER ==
[2018-08-12 07:31] LABS: Anisocytosis Slight; Basophils # (A) 0.1 k/uL (0-0.2); Basophils % (A) 1 %; Eosinophils # (A) 0.2 k/uL (0-0.7); Eosinophils % (A) 2 %; HCT 38.2 % (34.0-46.0); HGB 11.7 gm/dL (11.4-16.0); Hypochromasia Slight; Lymphocytes % (A) 27 %; MCH 26.9 pg (25.0-35.0); MCHC 30.7 g/dL (31.0-37.0); MCV 87.9 fL (80.0-100.0); Mean Platelet Volume 7.6; Monocytes # (A) 0.4 k/uL (0-1.0); Monocytes % (A) 5 %; Neutrophils # (A) 4.6 k/uL (1.3-7.7); Neutrophils % (A) 63 %; Platelet Count 137 k/uL (150-450); RBC 4.34 m/uL (3.80-5.40); RDW 16.3 % (11.5-15.5); WBC 7.3 k/uL (3.8-10.6)
[2018-08-12 07:51] LABS: INR 1.2 (<1.2); Partial Thromboplastin Time 29.2 sec (22.0-30.0); Prothrombin Time 12.1 sec (9.0-12.0)
[2018-08-12 15:16] LABS: Alpha Fetoprotein, Tumor Mkr 2.7 ng/mL (0.0-7.9); Vitamin D 25 Hydroxy 47.9 ng/mL (30.0-100.0)
[2018-08-12 15:44] LABS: Albumin 4.4 g/dL (3.80-4.90); Albumin/Globulin Ratio 1.29 (1.60-3.17); Anion Gap 8.8 mmol/L (4.00-12.00); Bilirubin, Conjugated 0.3 mg/dL (0.20-0.40); Bilirubin,Unconjugated 0.5 mg/dL; Calcium 9.6 mg/dL (8.7-10.3); Carbon Dioxide 26.2 mmol/L (21.6-31.8); Globulin 3.4 g/dL (1.6-3.3); Potassium 4.5 mmol/L (3.5-5.5); Total Bilirubin 0.8 mg/dL (0.3-1.2); Total Protein 7.8 g/dL (6.2-8.2)
== END | disposition home or self-care (01) ==
LOC: LABWHC1 06:42
PROVIDERS: ATTEND Internal Medicine Gastroenterology
DX: E11.65 Type 2 diabetes mellitus with hyperglycemia (principal); K21.9 Gastro-esophageal reflux disease without esophagitis; E78.1 Pure hyperglyceridemia; D50.9 Iron deficiency anemia, unspecified; I10 Essential (primary) hypertension; E83.42 Hypomagnesemia; K74.60 Unspecified cirrhosis of liver
CPT/HCPCS: 36415; 80053; 80061; 82043; 82105; 82248; 82306; 82570; 82607; 82728; 83735; 84443; 85025; 85610; 85730

== ENCOUNTER 2018-08-30 09:15 | Emergency (ER) | payer MEDICARE, OTHER ==
[2018-08-30 09:27] VITALS: RESP 18; TEMP 98.3
--- NOTE | 2018-08-30 10:16 | ED ---
URI HPI - General Chief Complaint: Upper Respiratory Infection Stated Complaint: bronchitis Time Seen by Provider: 08/30/18 09:52 Source: patient, RN notes reviewed Mode of arrival: ambulatory Limitations: no limitations - History of Present Illness Initial Comments: 72-year-old female presents emergency Department with chief complaint cough congestion. Patient states she has been sick over the last 4 days but states last 2 days have been the worse. Patient states she believes she has bronchitis as she states she's had this multiple times in the past. She does have a history of CHF but denies history of COPD or asthma. Patient denies any leg swelling, weight gain. Patient denies any known fever or chills. She does admit to sinus congestion, runny nose, sore throat. Patient denies any sick contacts. - Related Data Home Medications Medication Instructions Recorded Confirmed HYDROcodone/APAP 10-325MG [[place] 1 tab PO Q6H PRN 05/14/17 08/30/18 10-325] Insulin Detemir (Levemir) [Levemir] 70 unit SQ BID 05/14/17 08/30/18 sitaGLIPtin PHOS/metFORMIN HCL 2 tab PO W/SUPPER 05/14/17 08/30/18 [Janumet Xr 50-1,000 mg Tablet] Atorvastatin [Lipitor] 40 mg PO HS 01/11/18 08/30/18 Pramipexole Di-HCl [Mirapex] 0.75 mg PO BID 01/11/18 08/30/18 Esomeprazole Magnesium [NexIUM] 40 mg PO DAILY 02/21/18 08/30/18 Vitamin B Complex 1 cap PO DAILY 02/21/18 08/30/18 Insulin Glulisine [Apidra] 36 unit SQ AC-TID 08/30/18 08/30/18 Lisinopril [Zestril] 10 mg PO DAILY 08/30/18 08/30/18 Previous Rx's Medication Instructions Recorded Albuterol Sulfate [Proair Hfa] 1 - 2 puff INHALATION Q4HR PRN #1 08/30/18 inhaler Azithromycin [Zithromax Z-pack] 0 mg PO DIRECTED #1 pack 08/30/18 Allergies Allergy/AdvReac Type Severity Reaction Status Date / Time pentazocine [From [place]hell] Allergy Hallucinati Verified 08/30/18 10:14 ons Review of Systems ROS Statement: Those systems with pertinent positive or pertinent negative responses have been documented in the HPI. ROS Other: All systems not noted in ROS Statement are negative. Past Medical History Past Medical History: Heart Failure, Diabetes Mellitus, GERD/Reflux, GI Bleed, Hypertension, Liver Disease Additional Past Medical History / Comment(s): anemia and has had several iron infusions/blood transfusions,past bleeding gastric ulcers, rectal bleed, nonalcoholic liver cirrhosis, chronic diarrhea past 3 years ,RLS, low back/L hip pain, clausterphobia. History of Any Multi-Drug Resistant Organisms: None Reported Past Surgical History: Hysterectomy, Orthopedic Surgery, Tonsillectomy Additional Past Surgical History / Comment(s): Hemorrhagic cyst removed from right ureter; Right foot surgery d/t crush injury; Left hip pain stimulator implanted, Steel iris in right arm, EGDs/colonoscopies, bone marrow aspirations, low back and cervical injections for pain, bilateral cataract removals with lens implants. Past Anesthesia/Blood Transfusion Reactions: No Reported Reaction, Motion Sickness Additional Past Anesthesia/Blood Transfusion Reaction / Comment(s): Pt has had several blood transfusions without reaction. Pt has clausterphobia. Past Psychological History: No Psychological Hx Reported Smoking Status: Former smoker Past Alcohol Use History: None Reported Past Drug Use History: None Reported - Past Family History Father Additional Family Medical History / Comment(s): Father was an alcoholic but was sober for the last 9 yrs of his life. Mother Family Medical History: Coronary Artery Disease (CAD), Diabetes Mellitus Additional Family Medical History / Comment(s): Low hgb. She during a colonoscopy. She had 4 vessel CABG General Exam Limitations: no limitations General appearance: alert, in no apparent distress Head exam: Present: atraumatic, normocephalic, normal inspection Eye exam: Present: normal appearance, PERRL, EOMI. Absent: scleral icterus, conjunctival injection, periorbital swelling ENT exam: Present: mucous membranes moist, TM's normal bilaterally, normal external ear exam. Absent: normal exam, normal oropharynx (pnd) Neck exam: Present: normal inspection, full ROM. Absent: tenderness, meningismus, lymphadenopathy Respiratory exam: Present: normal lung sounds bilaterally. Absent: respiratory distress, wheezes, rales, rhonchi, stridor Cardiovascular Exam: Present: regular rate, normal rhythm, normal heart sounds. Absent: systolic murmur, diastolic murmur, rubs, gallop, clicks Extremities exam: Present: pedal edema Neurological exam: Present: alert, oriented X3, CN II-XII intact Skin exam: Present: warm, dry, intact, normal color. Absent: rash Course Vital Signs 08/30/18 09:24 Temperature 98.3 F Pulse Rate 104 H Respiratory 18 Rate Blood Pressure 139/55 O2 Sat by Pulse 97 Oximetry Medical Decision Making - Medical Decision Making 72-year-old female presented for cough congestion. Chest x-ray unremarkable., Influenza testing is negative. Patient to for acute bronchitis. Patient is a diabetic will not be started on steroids. She'll be given inhaler. Return parameters were discussed. - Lab Data Lab Results 08/30/18 Range/Units 10:30 Influenza Type A RNA Not Detected (Not Detectd) Influenza Type B (PCR) Not Detected (Not Detectd) Disposition Clinical Impression: Bronchitis Disposition: HOME SELF-CARE Condition: Stable Instructions (If sedation given, give patient instructions): Upper Respiratory Infection (ED) Additional Instructions: Please return to the Emergency Department if symptoms worsen or any other concerns. Prescriptions: Albuterol Sulfate [Proair Hfa] 1 - 2 puff INHALATION Q4HR PRN #1 inhaler PRN Reason: difficulty in breathing Azithromycin [Zithromax Z-pack] 0 mg PO DIRECTED #1 pack Is patient prescribed a controlled substance at d/c from ED?: No Referrals: Jason Morse MD [Primary Care Provider] - 1-2 days Time of Disposition: 11:01
--- NOTE | 2018-08-30 10:38 | XR ---
EXAMINATION TYPE: XR chest 2V DATE OF EXAM: 08/30/2018 COMPARISON: 02/21/2018 HISTORY: Cough and congestion for 3 days TECHNIQUE: Frontal and lateral views of the chest are obtained. FINDINGS: There is no focal air space opacity, pleural effusion, or pneumothorax seen. The cardiac silhouette size is upper limits of normal. The osseous structures are intact. Cholecystectomy clips , nerve stimulator, and right humeral arthroplasty are partially visualized. IMPRESSION: No acute cardiopulmonary process.
[2018-08-30 11:34] VITALS: BP 121/72; PULSE 78
== END 2018-08-30 11:34 | disposition home or self-care (01) ==
LOC: EC 09:15
DX: J20.9 Acute bronchitis, unspecified (principal); I11.0 Hypertensive heart disease with heart failure; I50.9 Heart failure, unspecified; E11.9 Type 2 diabetes mellitus without complications; K21.9 Gastro-esophageal reflux disease without esophagitis; Z87.891 Personal history of nicotine dependence; Z79.4 Long term (current) use of insulin; Z79.899 Other long term (current) drug therapy; Z88.5 Allergy status to narcotic agent
CPT/HCPCS: 71046; 87502; 99283

== ENCOUNTER → 2018-10-07 | Outpatient (CLI) | payer MEDICARE, OTHER ==
--- NOTE | 2018-10-08 12:43 | MM ---
Reason for exam: screening (asymptomatic). Last mammogram was performed 1 year ago. History: Patient is postmenopausal. Family history of breast cancer in maternal aunt. Took estrogen beginning at age 35. Physical Findings: A clinical breast exam by your physician is recommended on an annual basis and results should be correlated with mammographic findings. MG 3D Screening Mammo W/Cad Bilateral CC and MLO view(s) were taken. Prior study comparison: September 23, 2017, bilateral MG 3d screening mammo w/cad. October 18, 2015, mammogram, performed at [place]. The breast tissue is heterogeneously dense. This may lower the sensitivity of mammography. Finding #1: There is a 6 mm obscured round mass in the anterior position of the right breast MLO (). Finding #2: There are typically benign vascular, round calcifications in both breasts. New finding since September 23, 2017 and October 18, 2015. ASSESSMENT: Incomplete: need additional imaging evaluation, BI-RAD 0 RECOMMENDATION: Ultrasound of the right breast. [facility] will attempt to contact patient to return for ultrasound.
== END | disposition home or self-care (01) ==
LOC: RADMAMWWP 16:10
PROVIDERS: ATTEND Internal Medicine
DX: Z12.31 Encounter for screening mammogram for malignant neoplasm of breast (principal)
CPT/HCPCS: 77063; 77067

== ENCOUNTER → 2018-10-26 | Outpatient (CLI) | payer MEDICARE, OTHER ==
--- NOTE | 2018-10-26 12:24 | USB ---
Reason for exam: additional evaluation requested from abnormal screening. History: Patient is postmenopausal. Family history of breast cancer in maternal aunt. Took estrogen beginning at age 35. Physical Findings: Nurse did not find any significant physical abnormalities on exam. US Breast Workup Limited RT Right limited breast ultrasound including focal area of concern, retroareolar and axilla demonstrates a 0.6 x 0.4 x 0.4cm possibly cystic lesion at 7 o'clock, edge shadowing, irregular margin, aspiration recommended with convert to biopsy if unsuccessful. These results were verbally communicated with the patient and result sheet given to the patient on 10/26/18. ASSESSMENT: Suspicious, BI-RAD 4 RECOMMENDATION: Aspiration of the right breast. Called Dr. Morse with mammographic findings and has scheduled an appointment for the patient for 11/25/18 at 4:[address] Adames. Aspiration scheduled for 11/26/18 at 11:30. PRELIMINARY REPORT CALLED AND FAXED TO DR. ADAMES ON 10/26/18.
== END | disposition home or self-care (01) ==
LOC: RADUSWWP 07:32
PROVIDERS: ATTEND Internal Medicine
DX: R92.8 Other abnormal and inconclusive findings on diagnostic imaging of breast (principal)

== ENCOUNTER → 2018-11-25 | Outpatient (CLI) | payer MEDICARE, OTHER ==
[2018-11-25 16:05] VITALS: BP 126/76; PULSE 79; RESP 18; TEMP 98; BMI 35.7
--- NOTE | 2018-11-25 16:42 | P.GSHP ---
History of Present Illness H&P Date: 11/25/18 Chief Complaint: abnormal mammogram and ultrasound Theresa is a 73-year-old white female who comes for breast examination secondary to radiographic abnormality noted on mammogram and ultrasound performed in October 2018. On the mammogram she was noted to have a 6 mm obscured round mass in the anterior position of the right breast. She subsequently had a ultrasound performed which revealed a 0.6 x 0.4 cm possibly cystic lesion at 7:00 with the edge shadowing and showing a slight irregular margin. Aspiration was recommended with conversion to biopsy if unsuccessful. The patient does not feel anything of concern in her breast. The patient denies any nipple discharge, skin changes, or pain in her breast. Family history: 1.maternal aunt: of breast cancer mid 60's Hormonal History: menarche: 17 , 1 miscarrge, breast fed: yes, first born at 19 menopasue: radical hysterectomy at 33, endometriosis BCP: 1 month hormones: after hysterectomy 35 years, estrotab Surgical History: 1. hysterectomy total 2. Hemorrhagic cyst left ureter 3. Tonsillectomy 4. gallbladder 5. right arm, steal iris 6. screws right foot 7. pain neurostimulator left hip with the leads in the spinal cord, for leg and back pain Medical History: 1. chronic leg and back pain 2. type 2 diabetic 3. 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 CHF 5. anemia/iron infusions Social History: smoke:none, smoked up to 2PPD over 40 years/stopped 7 years ago alcohol: none drugs: none - Constitutional Constitutional: Denies chills, Denies fever - EENT Eyes: denies blurred vision, denies pain Ears: deny: decreased hearing, tinnitus Ears, nose, mouth and throat: Denies headache, Denies sore throat - Breasts Breasts: bilateral: as per HPI - Cardiovascular Comment: CHF - Respiratory Comment: former smoker - Gastrointestinal Comment: nonalcoholic chirosis Gastrointestinal: Reports diarrhea, Denies abdominal pain, Denies nausea, Denies vomiting - Genitourinary (Female) Genitourinary: Reports kidney stones - Menstruation Menstruation: Reports post hysterectomy - Musculoskeletal Comment: chronic back pain 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 cause, follow with Dr. Washington - Allergic/Immunologic Allergic/Immunologic: Reports as per HPI, Reports seasonal allergies Past Medical History Past Medical History: Heart Failure, Diabetes Mellitus, GERD/Reflux, GI Bleed, Hypertension, Liver Disease Additional Past Medical History / Comment(s): anemia and has had several iron infusions/blood transfusions,past bleeding gastric ulcers, rectal bleed, nonalcoholic liver cirrhosis, chronic diarrhea past 3 years ,RLS, low back/L hip pain, clausterphobia. History of Any Multi-Drug Resistant Organisms: None Reported Past Surgical History: Hysterectomy, Orthopedic Surgery, Tonsillectomy Additional Past Surgical History / Comment(s): Hemorrhagic cyst removed from right ureter; Right foot surgery d/t crush injury; Left hip pain stimulator implanted, Steel iris in right arm, EGDs/colonoscopies, bone marrow aspirations, low back and cervical injections for pain, bilateral cataract removals with lens implants. Past Anesthesia/Blood Transfusion Reactions: No Reported Reaction, Motion Sickness Additional Past Anesthesia/Blood Transfusion Reaction / Comment(s): Pt has had several blood transfusions without reaction. Pt has clausterphobia. Past Psychological History: No Psychological Hx Reported Additional Psychological History / Comment(s): Pt states she had severe depression when younger but learned how to make it stop. She resides with her spouse. She is independent. They moved back to [place] from [place] about 1 year ago. They originally were from [place] but had moved to [place] in 1973. She has clausterphobia Smoking Status: Former smoker Past Alcohol Use History: None Reported Additional Past Alcohol Use History / Comment(s): Pt states she started smoking in 1969 and quit in 2009 Past Drug Use History: None Reported - Past Family History Father Additional Family Medical History / Comment(s): Father was an alcoholic but was sober for the last 9 yrs of his life. Mother Family Medical History: Coronary Artery Disease (CAD), Diabetes Mellitus Additional Family Medical History / Comment(s): Low hgb. She during a colonoscopy. She had 4 vessel CABG Medications and Allergies Home Medications Medication Instructions Recorded Confirmed Type HYDROcodone/APAP 10-325MG [[place] 2 tab PO Q6H PRN 05/14/17 11/25/18 History 10-325] Insulin Detemir (Levemir) [Levemir] 70 unit SQ BID 05/14/17 11/25/18 History sitaGLIPtin PHOS/metFORMIN HCL 2 tab PO W/SUPPER 05/14/17 11/25/18 History [Janumet Xr 50-1,000 mg Tablet] Atorvastatin [Lipitor] 40 mg PO HS 01/11/18 11/25/18 History Pramipexole Di-HCl [Mirapex] 0.75 mg PO BID 01/11/18 11/25/18 History Esomeprazole Magnesium [NexIUM] 40 mg PO DAILY 02/21/18 11/25/18 History Insulin Glulisine [Apidra] 1 unit SQ TID 08/30/18 11/25/18 History Lisinopril [Zestril] 10 mg PO DAILY 08/30/18 11/25/18 History Allergies Allergy/AdvReac Type Severity Reaction Status Date / Time pentazocine [From [place]] Allergy Hallucinati Verified 11/25/18 16:05 ons Surgical - Exam Vital Signs Temp Pulse Resp BP Pulse Ox 98.0 F 79 18 126/76 100 11/25/18 16:00 11/25/18 16:00 11/25/18 16:00 11/25/18 16:00 11/25/18 16:00 BMI 35.7 - General obese - Eyes normal ocular movement - ENT poor dentition no hearing loss, no congestion - Neck no masses, trachea midline - Respiratory normal expansion, normal respiratory effort, clear to percussion, clear to auscultation - Cardiovascular Rhythm: regular Heart Sounds: normal: S1, S2 - Abdomen Abdomen: soft - Integumentary normal turgor tattoo right chest wall - Neurologic no disoriented, no combative - Musculoskeletal normal gait, normal posture - Psychiatric oriented to time, oriented to person, oriented to place, speech is normal, memory intact breast exam: right breast: Multi-positional exam no dominant masses or nodules of concern Right axilla: No adenopathy of concern Left breast: Multiple positional exam no dominant masses or nodules of concern, fibrocystic changes Left axilla: No adenopathy of concern tatoo over right chest wall Results mammogram and ultrasound report reviewed Assessment and Plan Assessment: Impression: 1. chronic leg and back pain 2. type 2 diabetic 3. 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 CHF 5. anemia/iron infusions 6. abnormal mammogram and ultrasound 7. fibrocystic disease of breast Risk and benefits of ultrasound core aspiration/biopsy are discussed with the patient. She wishes to proceed. Plan: 1. Ultrasound-guided aspiration possible biopsy of radiographic lesion in the right breast 2. Medical management of medical conditions 3. Follow-up after aspiration/core biopsy of right breast lesion CC: Dr. Morse
== END | disposition home or self-care (01) ==
LOC: WWCWWP 15:54
PROVIDERS: ATTEND Surgery
DX: Z53.9 Procedure and treatment not carried out, unspecified reason (principal)

== ENCOUNTER → 2018-11-26 | Day surgery (SDC) | payer MEDICARE, OTHER ==
[2018-11-26 10:48] VITALS: RESP 16; BMI 35.1
[2018-11-26 12:12] VITALS: BP 136/76; PULSE 79; TEMP 97.8
--- NOTE | 2018-11-26 12:36 | USB ---
EXAMINATION TYPE: US breast aspiration single RT, MG diagnostic mammo RT wo CAD DATE OF EXAM: 11/26/2018 COMPARISON: 10/26/2018 CLINICAL HISTORY: N63 Breast Lump/Mass. FINDINGS: The procedure of ultrasound guided core biopsy was explained to the patient. Benefits, alternatives, and risks were discussed. An informed consent was then obtained. Preprocedural timeout was performed. The patient was placed in supine positioning for imaging and for the procedure. The overlying skin was prepped and draped in usual sterile fashion. 10 cc of 1% lidocaine was used as anesthetic into the skin and subcutaneous tissue up to the irregular hypoechoic possibly cystic 0.6 cm mass at the 7:00 position in the right breast. Under ultrasound guidance, an 18-gauge spinal needle was used to aspirate thin clear scant fluid from the 0.6 x 0.4 x 0.4 cm irregular cyst. Following this, there was collapse of the cystic mass. Subsequently a ribbon-shaped biopsy marker was left at the site of aspiration. Postprocedure mammogram demonstrates appropriate biopsy marker placement. The patient tolerated the procedure well without any immediate complication. The patient was kept in the radiology department for short stay after the procedure and then discharged home in stable condition. IMPRESSION: Successful, uncomplicated ultrasound guided aspiration of the irregular cystic mass at the 7:00 position in the right breast, full pathology results to follow. Pathology Results: Benign RIGHT BREAST, SEVEN O'CLOCK, FINE NEEDLE ASPIRATE: Minimally cellular specimen consisting of degenerated blood and adipose tissue. Non-diagnostic. Recommendation Follow up mammogram of the right breast in 6 months. EVELINA
== END ==
LOC: RADUSWWP 10:30
PROVIDERS: ATTEND Surgery
DX: N60.01 Solitary cyst of right breast (principal); Z88.5 Allergy status to narcotic agent
CPT/HCPCS: 19000; 88173; 77065; 76942; A4648; J2001

== ENCOUNTER → 2018-12-02 | Outpatient (CLI) | payer MEDICARE, OTHER ==
[2018-12-02 09:57] VITALS: BP 123/74; PULSE 74; RESP 16; TEMP 97.7; BMI 36.1
--- NOTE | 2018-12-02 10:46 | P.PN ---
Progress Note - Text Progress Note Date: 12/02/18 Theresa is status post a ultrasound-guided aspiration of the cystic lesion in the right breast and 620 119. Pathology was non-worrisome. She is recommended to have a repeat right breast ultrasound in 6 months time. She is not complaining of any problems after the biopsy. Physical exam: Right breast: Mild ecchymosis at site of aspiration no hematoma Lungs: Clear Heart: Regular rate and rhythm Impression/Plan: 1. Fibrocystic changes noted aspiration site 2. Repeat right breast ultrasound in 6 months with physician exam at that time Cc: Dr. Morse/ Lindsay Reyes N.P.
== END ==
LOC: WWCWWP 09:28
PROVIDERS: ATTEND Surgery
DX: Z53.9 Procedure and treatment not carried out, unspecified reason (principal)

== ENCOUNTER → 2018-12-06 | Outpatient (CLI) | payer MEDICARE, OTHER ==
[~2018-12-06] MED LIST: SODIUM CHLORIDE 0.9% 500 ML 500 ML in EMPTY BAG 1 BAG IV PRN
[2018-12-06] MEDS: MAGNESIUM SULFATE-D5W PMX 1 GM in DEXTROSE/WATER 1 100ML.BAG IVPB SCH ×2 (10:58→12:42)
== END ==
LOC: PROCWHC3 09:57
PROVIDERS: ATTEND Nurse Practitioner Adult Health
DX: E83.42 Hypomagnesemia (principal)
CPT/HCPCS: 96365; 96366; J3475

== ENCOUNTER → 2018-12-07 | Outpatient (CLI) | payer MEDICARE, OTHER ==
--- NOTE | 2018-12-08 07:15 | US ---
EXAMINATION TYPE: US liver DATE OF EXAM: 12/07/2018 COMPARISON: NONE CLINICAL HISTORY: K74.60 CIRRHOSIS OF THE LIVER. Cirrhosis non-alcoholic, cholecystectomy EXAM MEASUREMENTS: Liver Length: 18.8 cm Gallbladder Wall: Surgically absent CBD: 0.8 cm Right Kidney: 11.0 x 4.2 x 4.8 cm Pancreas: Tail obscured by overlying bowel gas Liver: Coarsened echotexture, attenuating, enlarged, heterogeneous. Patent portal vein, flow is hepa topetal . Although findings Limited evaluation for hepatic masses no gross mass is seen on today's ex am. Gallbladder: Surgically absent Evidence for sonographic Perez's sign: no CBD: appears wnl Right Kidney: no evidence of hydronephrosis IMPRESSION: Findings compatible with this patient's known underlying hepatic cirrhosis. Directionalit y of the portal vein is appropriate without gross evidence of thrombus.
== END | disposition home or self-care (01) ==
LOC: RADUSWWP 16:09
PROVIDERS: ATTEND Internal Medicine Gastroenterology
DX: K74.60 Unspecified cirrhosis of liver (principal)
CPT/HCPCS: 76705

== ENCOUNTER 2019-03-28 21:36 | Emergency (ER) | payer MEDICARE, OTHER ==
[2019-03-28 21:42] VITALS: TEMP 98.3
[2019-03-28] MEDS ORDERED: KETOROLAC 30 MG/ML 1 ML VIAL IVP STA (23:46)
--- NOTE | 2019-03-28 23:56 | CT ---
EXAMINATION TYPE: CT abdomen pelvis wo con DATE OF EXAM: 03/28/2019 COMPARISON: 11/15/2016 HISTORY: Back pain, r/o stones CT DLP: 823.60 mGycm Automated exposure control for dose reduction was used. TECHNIQUE: Helical acquisition of images was performed from the lung bases through the pelvis. FINDINGS: Lung bases are clear. There is no pleural effusion. Heart size is normal. There is some coronary jevon ry calcification. Liver shows no focal defect. There are clips from cholecystectomy. Spleen appears normal. There is no evidence of pancreatic mass. The stomach appears intact. The bile ducts are not dilated. There is no adrenal mass. Kidneys have normal size and contour. There is no hydronephrosis. There is 3 mm calculus posterior left kidney. Ureters are not dilated. There is 2 mm calculus lower pole left kidney. There is no retroperitoneal adenopathy. Bladder distends smoothly. There is no inguinal herni a. There are multiple diverticula in the sigmoid colon. There is no sign of diverticulitis. Appendix is not seen. There is no sign of thickened appendix. There is implant over the posterior left iliac bone . There is spinal neural stimulator implant. There is no mesenteric edema. There is no evidence of a bowel obstruction. There is no evidence of fr ee air. There is no ascites. Lumbar vertebra have fairly normal alignment. There is a few millimeter anterior subluxation of L4 in relation L5. The bony pelvis is intact. Abdominal aorta is atheromatous. There is hysterectomy. IMPRESSION: THERE IS SIGMOID DIVERTICULOSIS WITHOUT DIVERTICULITIS. SUBCUTANEOUS DENSITY OVER THE ANTERIOR ABDOME N CONSISTENT WITH INJECTION SITES. NONOBSTRUCTING LEFT RENAL CALCULI. NO EVIDENCE OF LEFT RENAL OBSTR UCTION IN THIS PATIENT WITH LEFT FLANK PAIN.
[2019-03-29 00:16] LABS: Basophils % (A) 1 %; Eosinophils # (A) 0.1 k/uL (0-0.7); Eosinophils % (A) 2 %; HGB 8.2 gm/dL (11.4-16.0); Hypochromasia Marked; Lymphocytes # (A) 1.1 k/uL (1.0-4.8); Lymphocytes % (A) 26 %; MCH 23.8 pg (25.0-35.0); MCHC 28.3 g/dL (31.0-37.0); MCV 84.2 fL (80.0-100.0); Mean Platelet Volume 7.9; Monocytes # (A) 0.2 k/uL (0-1.0); Monocytes % (A) 5 %; Neutrophils # (A) 2.7 k/uL (1.3-7.7); Neutrophils % (A) 63 %; Platelet Count 152 k/uL (150-450); RBC 3.44 m/uL (3.80-5.40); RDW 14.7 % (11.5-15.5); WBC 4.3 k/uL (3.8-10.6)
[2019-03-29 00:23] VITALS: BP 186/73; PULSE 83; RESP 18
[2019-03-29 00:26] LABS: Albumin 3.8 g/dL (3.5-5.0); Calcium 9.2 mg/dL (8.4-10.2); Potassium 4.1 mmol/L (3.5-5.1); Total Bilirubin 0.6 mg/dL (0.2-1.3); Total Protein 7.6 g/dL (6.3-8.2)
[2019-03-29 00:36] LABS: Appearance,Urine Clear (Clear); Bacteria,Urine Many /hpf; Bilirubin,Urine Negative (Negative); Blood,Urine Negative (Negative); Budding Yeast,Urine Rare /hpf; Color,Urine Light Yellow; Glucose,Urine (UA) 3+ (Negative); Ketones,Urine Negative (Negative); Leukocyte Esterase,Urine Trace (Negative); Mucus,Urine Rare /hpf; Nitrite,Urine Positive (Negative); PH, Urine 5.5 (5.0-8.0); Protein,Urine Negative (Negative); RBC,Urine <1 /hpf (0-5); Specific Gravity,Urine 1.015 (1.001-1.035); Squamous Epithelial Cell,Urine 1 /hpf (0-4); Urobilinogen,Urine <2.0 mg/dL (<2.0); WBC,Urine 11 /hpf (0-5)
[2019-03-29] MEDS ORDERED: cefTRIAXone IN SWFI 1,000 MG/10 ML SYRINGE IVP STA (00:40)
[2019-03-29] MEDS ORDERED: MORPHINE SULFATE 2 MG/ML SYRINGE IVP STA (00:45)
--- NOTE | 2019-03-29 00:48 | ED ---
Back Pain HPI - General Chief Complaint: Back Pain/Injury Stated Complaint: Kidney Stone Time Seen by Provider: 03/28/19 22:57 Source: patient Limitations: no limitations - History of Present Illness Initial Comments: 73-year-old female with history of diabetes and kidney stones presents emergency department for chief complaint of right CVA tenderness. Patient states she has had right flank pain for the past day. She states that she feels this is similar in character sick which that is still in the past. Denies dysuria urgency frequency hematuria. Patient denies any chest pain shortness of breath. Patient denies of Tylenol or groaning pain. Patient denies a fever or flulike symptoms. Patient denies any direct traumas or injuries to the back denies any rashes. Patient denies any loss of bowel bladder control urinary retention or midline back pain. Patient states when the pain persisted to this evening and she was unable to sleep she presents immersed her for further evaluation. Upon arrival patient appears uncomfortable but nontoxic. Vital signs within physical limits. - Related Data Home Medications Medication Instructions Recorded Confirmed HYDROcodone/APAP 10-325MG [[place] 1 tab PO Q6H PRN 05/14/17 03/28/19 10-325] Insulin Detemir (Levemir) [Levemir] 70 unit SQ BID 05/14/17 03/28/19 sitaGLIPtin PHOS/metFORMIN HCL 1 tab PO BID 05/14/17 03/28/19 [Janumet Xr 50-1,000 mg Tablet] Atorvastatin [Lipitor] 40 mg PO DAILY 01/11/18 03/28/19 Pramipexole Di-HCl [Mirapex] 1 mg PO BID 01/11/18 03/28/19 Esomeprazole Magnesium [NexIUM] 40 mg PO DAILY 02/21/18 03/28/19 Insulin Glulisine [Apidra] See Protocol SQ AC-TID 08/30/18 03/28/19 Lisinopril [Zestril] 5 mg PO DAILY 03/28/19 03/28/19 Previous Rx's Medication Instructions Recorded Cephalexin [Keflex] 500 mg PO Q12HR 7 Days #14 cap 03/29/19 Allergies Allergy/AdvReac Type Severity Reaction Status Date / Time pentazocine [From [place]] Allergy Hallucinati Verified 03/28/19 23:05 ons Review of Systems ROS Statement: Those systems with pertinent positive or pertinent negative responses have been documented in the HPI. ROS Other: All systems not noted in ROS Statement are negative. Past Medical History Past Medical History: Heart Failure, Diabetes Mellitus, GERD/Reflux, GI Bleed, Hypertension, Liver Disease Additional Past Medical History / Comment(s): anemia and has had several iron infusions/blood transfusions,past bleeding gastric ulcers, rectal bleed, nonalcoholic liver cirrhosis, chronic diarrhea past 3 years ,RLS, low back/L hip pain, clausterphobia. History of Any Multi-Drug Resistant Organisms: None Reported Past Surgical History: Hysterectomy, Orthopedic Surgery, Tonsillectomy Additional Past Surgical History / Comment(s): Hemorrhagic cyst removed from right ureter; Right foot surgery d/t crush injury; Left hip pain stimulator implanted, Steel iris in right arm, EGDs/colonoscopies, bone marrow aspirations, low back and cervical injections for pain, bilateral cataract removals with lens implants. Past Anesthesia/Blood Transfusion Reactions: No Reported Reaction, Motion Sickness Additional Past Anesthesia/Blood Transfusion Reaction / Comment(s): Pt has had several blood transfusions without reaction. Pt has clausterphobia. Past Psychological History: No Psychological Hx Reported Smoking Status: Former smoker Past Alcohol Use History: None Reported Past Drug Use History: None Reported - Past Family History Father Additional Family Medical History / Comment(s): Father was an alcoholic but was sober for the last 9 yrs of his life. Mother Family Medical History: Coronary Artery Disease (CAD), Diabetes Mellitus Additional Family Medical History / Comment(s): Low hgb. She during a colonoscopy. She had 4 vessel CABG General Exam - General Exam Comments Initial Comments: General: The patient is awake and alert Eye: +3 mm pupils are equal, round and reactive to light, extra-ocular movements are intact. No nystagmus. There is normal conjunctiva bilaterally. No signs of icterus. Ears, nose, mouth and throat: There are moist mucous membranes and no oral lesions. Neck: The neck is supple, there is no tenderness or JVD. Cardiovascular: There is a regular rate and rhythm. No murmur, rub or gallop is appreciated. Respiratory: Lungs are clear to auscultation, respirations are non-labored, breath sounds are equal. No wheezes, stridor, rales, or rhonchi. Gastrointestinal: Soft, non-distended, non-tender abdomen without masses or organomegaly noted. There is no rebound or guarding present. No CVA tenderness. Bowel sounds are unremarkable. Musculoskeletal: Normal inspection of the cervical thoracic and lumbar spine. There is no midline tenderness to patient the cervical thoracic and lumbar spine. There is some tenderness over the right mid thoracic back paravertebral muscles. Normal ROM, no tenderness. Strength 5/5 of the lower extremity equal in comparison bilaterally. Sensation intact of the lower extremities equal and comparison bilaterally. Radial pulses equal bilaterally 2+. Neurological: A&O x 3. CN II-XII intact grossly, There are no obvious motor or sensory deficits. Coordination appears grossly intact. Speech is normal. Skin: Skin is warm and dry and no rashes or lesions are noted. Psychiatric: Cooperative, appropriate mood & affect, normal judgment. Limitations: no limitations Course Vital Signs 03/28/19 03/29/19 21:40 00:21 Temperature 98.3 F Pulse Rate 92 83 Respiratory 20 18 Rate Blood Pressure 149/55 186/73 O2 Sat by Pulse 97 98 Oximetry Medical Decision Making - Medical Decision Making 73yo female with history of kidney stones presented for right flank pain. Patient states this feels consistent when should kidney stones in the past. CT negative for nephrolithiasis. Urinalysis unremarkable. Patient does have reproducible paravertebral tenderness. Patient's pain control with morphine. Urinalysis physician assistant psychiatry with urinary tract infection positive nitrates. Patient given IM injection of ceftriaxone. Will be discharged with Keflex. Patient was requesting discharge states she'll not stay in the hospital. Patient denies any chest pain shortness of breath. There is no other acute findings on CT of the abdomen and pelvis. Patient's vital signs stable she appears well nontoxic. Return for management discussed as well as importance of primary care follow-up. Patient verbalized understanding was discharged from [facility] discussed the case with any provider Dr. Ruiz - Lab Data Result diagrams: 03/28/19 22:23 03/28/19 22:23 Lab Results 03/28/19 03/28/19 03/28/19 Range/Units 22:23 22:23 22:23 WBC 4.3 (3.8-10.6) k/uL RBC 3.44 L (3.80-5.40) m/uL Hgb 8.2 L (11.4-16.0) gm/dL Hct 29.0 L (34.0-46.0) % MCV 84.2 (80.0-100.0) fL MCH 23.8 L (25.0-35.0) pg MCHC 28.3 L (31.0-37.0) g/dL RDW 14.7 (11.5-15.5) % Plt Count 152 (150-450) k/uL Neutrophils % 63 % Lymphocytes % 26 % Monocytes % 5 % Eosinophils % 2 % Basophils % 1 % Neutrophils # 2.7 (1.3-7.7) k/uL Lymphocytes # 1.1 (1.0-4.8) k/uL Monocytes # 0.2 (0-1.0) k/uL Eosinophils # 0.1 (0-0.7) k/uL Basophils # 0.0 (0-0.2) k/uL Hypochromasia Marked Sodium 140 (137-145) mmol/L Potassium 4.1 (3.5-5.1) mmol/L Chloride 107 (98-107) mmol/L Carbon Dioxide 23 (22-30) mmol/L Anion Gap 10 mmol/L BUN 16 (7-17) mg/dL Creatinine 0.77 (0.52-1.04) mg/dL Est GFR (CKD-EPI)AfAm 90 (>60 ml/min/1.73 sqM) Est GFR (CKD-EPI)NonAf 78 (>60 ml/min/1.73 sqM) Glucose 261 H (74-99) mg/dL Calcium 9.2 (8.4-10.2) mg/dL Total Bilirubin 0.6 (0.2-1.3) mg/dL AST 36 (14-36) U/L ALT 17 (9-52) U/L Alkaline Phosphatase 111 (38-126) U/L Total Protein 7.6 (6.3-8.2) g/dL Albumin 3.8 (3.5-5.0) g/dL Amylase 35 (30-110) U/L Lipase 99 (23-300) U/L Urine Color Light Yellow Urine Appearance Clear (Clear) Urine pH 5.5 (5.0-8.0) Ur Specific [place] 1.015 (1.001-1.035) Urine Protein Negative (Negative) Urine Glucose (UA) 3+ H (Negative) Urine Ketones Negative (Negative) Urine Blood Negative (Negative) Urine Nitrite Positive H (Negative) Urine Bilirubin Negative (Negative) Urine Urobilinogen <2.0 (<2.0) mg/dL Ur Leukocyte Esterase Trace H (Negative) Urine RBC <1 (0-5) /hpf Urine WBC 11 H (0-5) /hpf Ur Squamous Epith Cells 1 (0-4) /hpf Urine Bacteria Many H (None) /hpf Urine Mucus Rare H (None) /hpf Urine Yeast (Budding) Rare H (None) /hpf Disposition Clinical Impression: Right-sided back pain, UTI (urinary tract infection) Disposition: HOME SELF-CARE Condition: Good Instructions (If sedation given, give patient instructions): Flank Pain (ED) Additional Instructions: Please use medications as discussed. Please follow-up with PCP in 1-2 days. Return for lesions of the skin, increasing pain, fever, or any other concerns. Prescriptions: Cephalexin [Keflex] 500 mg PO Q12HR 7 Days #14 cap Is patient prescribed a controlled substance at d/c from ED?: No Referrals: Jason Morse MD [Primary Care Provider] - 1-2 days Time of Disposition: 01:55
== END 2019-03-29 02:15 | disposition home or self-care (01) ==
LOC: EC 21:36
DX: N39.0 Urinary tract infection, site not specified (principal); E11.9 Type 2 diabetes mellitus without complications; I11.0 Hypertensive heart disease with heart failure; I50.9 Heart failure, unspecified; K21.9 Gastro-esophageal reflux disease without esophagitis; G25.81 Restless legs syndrome; Z87.891 Personal history of nicotine dependence; Z88.5 Allergy status to narcotic agent; Z79.4 Long term (current) use of insulin; Z79.899 Other long term (current) drug therapy; Z87.442 Personal history of urinary calculi; Z86.2 Personal history of diseases of the blood and blood-forming organs and certain disorders involving the immune mechanism
CPT/HCPCS: 99284 ×2; 96374 ×2; 96375 ×3; 36415; 80053; 82150; 83690; 85025; 81001; 74176; 96365; J0696; J1885; J2270; Q0138; 96372

== ENCOUNTER 2019-07-23 10:20 | Emergency (ER) | payer MEDICARE, OTHER ==
[2019-07-23] MEDS ORDERED: SODIUM CHLORIDE 0.9% 1,000 ML IV STA (10:50)
--- NOTE | 2019-07-23 10:53 | ED ---
General Adult HPI - General Chief complaint: Weakness Stated complaint: Tired,unable to urinate Time Seen by Provider: 07/23/19 10:30 Source: patient, RN notes reviewed, old records reviewed Mode of arrival: wheelchair Limitations: no limitations - History of Present Illness Initial comments: This is a 73-year-old female who presents to the emergency department with a history of anemia. Patient states she got off for class tonight was extremely tired and all she started to sleep since then. Patient states she feels very weak overall however she has no focal deficit. Patient states she also believes she is not urinating very much even though she does not have the urge. In the emergency department a bladder scanner was done and it showed only 82 mL. Patient denies any fever or chills per patient denies any cough patient denies difficulty breathing or shortness of breath per patient denies any chest pain or palpitations. Patient denies any abdominal pain patient denies any nausea or vomiting. 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 - Related Data Home Medications Medication Instructions Recorded Confirmed HYDROcodone/APAP 10-325MG [[place] 1 tab PO Q6H PRN 05/14/17 03/31/19 10-325] Insulin Detemir (Levemir) [Levemir] 70 unit SQ BID 05/14/17 03/31/19 sitaGLIPtin PHOS/metFORMIN HCL 1 tab PO BID 05/14/17 03/31/19 [Janumet Xr 50-1,000 mg Tablet] Atorvastatin [Lipitor] 40 mg PO DAILY 01/11/18 03/31/19 Pramipexole Di-HCl [Mirapex] 1 mg PO BID 01/11/18 03/31/19 Esomeprazole Magnesium [NexIUM] 40 mg PO DAILY 02/21/18 03/31/19 Insulin Glulisine [Apidra] See Protocol SQ AC-TID 08/30/18 03/31/19 Lisinopril [Zestril] 5 mg PO DAILY 03/28/19 03/31/19 Previous Rx's Medication Instructions Recorded Cephalexin [Keflex] 500 mg PO Q12HR 7 Days #14 cap 03/29/19 Allergies Allergy/AdvReac Type Severity Reaction Status Date / Time pentazocine [From [place]] Allergy Hallucinati Verified 07/23/19 10:33 ons Review of Systems ROS Statement: Those systems with pertinent positive or pertinent negative responses have been documented in the HPI. ROS Other: All systems not noted in ROS Statement are negative. Past Medical History Past Medical History: Heart Failure, Diabetes Mellitus, GERD/Reflux, GI Bleed, Hypertension, Liver Disease Additional Past Medical History / Comment(s): anemia and has had several iron infusions/blood transfusions,past bleeding gastric ulcers, rectal bleed, nonalcoholic liver cirrhosis, chronic diarrhea past 3 years ,RLS, low back/L hip pain, clausterphobia. History of Any Multi-Drug Resistant Organisms: None Reported Past Surgical History: Hysterectomy, Orthopedic Surgery, Tonsillectomy Additional Past Surgical History / Comment(s): Hemorrhagic cyst removed from right ureter; Right foot surgery d/t crush injury; Left hip pain stimulator implanted, Steel iris in right arm, EGDs/colonoscopies, bone marrow aspirations, low back and cervical injections for pain, bilateral cataract removals with lens implants. Past Anesthesia/Blood Transfusion Reactions: No Reported Reaction, Motion Sickn ess Additional Past Anesthesia/Blood Transfusion Reaction / Comment(s): Pt has had several blood transfusions without reaction. Pt has clausterphobia. Past Psychological History: No Psychological Hx Reported Smoking Status: Former smoker Past Alcohol Use History: None Reported Past Drug Use History: None Reported - Past Family History Father Additional Family Medical History / Comment(s): Father was an alcoholic but was sober for the last 9 yrs of his life. Mother Family Medical History: Coronary Artery Disease (CAD), Diabetes Mellitus Additional Family Medical History / Comment(s): Low hgb. She during a colonoscopy. She had 4 vessel CABG General Exam - General Exam Comments Initial Comments: GENERAL: Patient is well-developed and well-nourished. Patient is nontoxic and well- hydrated and is in mild distress. ENT: Neck is soft and supple. No significant lymphadenopathy is noted. Oropharynx is clear. Moist mucous membranes. Neck has full range of motion without eliciting any pain. EYES: The sclera were anicteric and conjunctiva were pink and moist. Extraocular mov ements were intact and pupils were equal round and reactive to light. Eyelids were unremarkable. PULMONARY: Unlabored respirations. Good breath sounds bilaterally. No audible rales rhonchi or wheezing was noted. CARDIOVASCULAR: There is a regular rate and rhythm without any murmurs gallops or rubs. ABDOMEN: Soft and nontender with normal bowel sounds. SKIN: Skin is clear with no lesions or rashes and otherwise unremarkable. NEUROLOGIC: Patient is alert and oriented x3. Cranial nerves II through XII are grossly intact. Motor and sensory are also intact. Normal speech, volume and content. Symmetrical smile. MUSCULOSKELETAL: Normal extremities with adequate strength and full range of motion. LYMPHATICS: No significant lymphadenopathy is noted PSYCHIATRIC: Normal psychiatric evaluation. Limitations: no limitations Course Vital Signs 07/23/19 07/23/19 10:32 12:39 Temperature 97.9 F Pulse Rate 104 H 88 Respiratory 18 16 Rate Blood Pressure 174/77 152/81 O2 Sat by Pulse 98 96 Oximetry Medical Decision Making - Medical Decision Making EKG shows normal sinus rhythm at 80 bpm [place] interval is on a 48 QRS is 74 QT interval 366 QTC is 442. Patient's EKG shows no ST segment elevation or depression. Patient had diarrhea while in the emergency department. Patient was given a liter fluid. Patient was given a gram of magnesium sulfate. Patient was feeling better at discharge. - Lab Data Result diagrams: 07/23/19 10:57 07/23/19 10:57 Lab Results 07/23/19 07/23/19 07/23/19 Range/Units 10:57 10:57 10:57 WBC 7.2 (3.8-10.6) k/uL RBC 5.18 (3.80-5.40) m/uL Hgb 14.0 (11.4-16.0) gm/dL Hct 44.7 (34.0-46.0) % MCV 86.3 (80.0-100.0) fL MCH 27.0 (25.0-35.0) pg MCHC 31.3 (31.0-37.0) g/dL RDW 14.1 (11.5-15.5) % Plt Count 127 L (150-450) k/uL Neutrophils % 78 % Lymphocytes % 12 % Monocytes % 6 % Eosinophils % 1 % Basophils % 1 % Neutrophils # 5.6 (1.3-7.7) k/uL Lymphocytes # 0.8 L (1.0-4.8) k/uL Monocytes # 0.4 (0-1.0) k/uL Eosinophils # 0.1 (0-0.7) k/uL Basophils # 0.1 (0-0.2) k/uL PT (9.0-12.0) sec INR (<1.2) APTT (22.0-30.0) sec Sodium 134 L (137-145) mmol/L Potassium 3.8 (3.5-5.1) mmol/L Chloride 103 (98-107) mmol/L Carbon Dioxide 17 L (22-30) mmol/L Anion Gap 14 mmol/L BUN 13 (7-17) mg/dL Creatinine 0.70 (0.52-1.04) mg/dL Est GFR (CKD-EPI)AfAm >90 (>60 ml/min/1.73 sqM) Est GFR (CKD-EPI)NonAf 87 (>60 ml/min/1.73 sqM) Glucose 333 H (74-99) mg/dL Plasma Lactic Acid Phi 1.4 (0.7-2.0) mmol/L Calcium 9.5 (8.4-10.2) mg/dL Magnesium 1.2 L (1.6-2.3) mg/dL Total Bilirubin 1.4 H (0.2-1.3) mg/dL AST 54 H (14-36) U/L ALT 36 H (4-34) U/L Alkaline Phosphatase 191 H (38-126) U/L Troponin I (0.000-0.034) ng/mL Total Protein 8.5 H (6.3-8.2) g/dL Albumin 4.3 (3.5-5.0) g/dL Urine Color Urine Appearance (Clear) Urine pH (5.0-8.0) Ur Specific [place] (1.001-1.035) Urine Protein (Negative) Urine Glucose (UA) (Negative) Urine Ketones (Negative) Urine Blood (Negative) Urine Nitrite (Negative) Urine Bilirubin (Negative) Urine Urobilinogen (<2.0) mg/dL Ur Leukocyte Esterase (Negative) Urine RBC (0-5) /hpf Urine WBC (0-5) /hpf Ur Squamous Epith Cells (0-4) /hpf Hyaline Casts (0-2) /lpf Urine Mucus (None) /hpf 07/23/19 07/23/19 07/23/19 Range/Units 10:57 10:57 12:18 WBC (3.8-10.6) k/uL RBC (3.80-5.40) m/uL Hgb (11.4-16.0) gm/dL Hct (34.0-46.0) % MCV (80.0-100.0) fL MCH (25.0-35.0) pg MCHC (31.0-37.0) g/dL RDW (11.5-15.5) % Plt Count (150-450) k/uL Neutrophils % % Lymphocytes % % Monocytes % % Eosinophils % % Basophils % % Neutrophils # (1.3-7.7) k/uL Lymphocytes # (1.0-4.8) k/uL Monocytes # (0-1.0) k/uL Eosinophils # (0-0.7) k/uL Basophils # (0-0.2) k/uL PT 12.4 H (9.0-12.0) sec INR 1.2 H (<1.2) APTT 29.2 (22.0-30.0) sec Sodium (137-145) mmol/L Potassium (3.5-5.1) mmol/L Chloride (98-107) mmol/L Carbon Dioxide (22-30) mmol/L Anion Gap mmol/L BUN (7-17) mg/dL Creatinine (0.52-1.04) mg/dL Est GFR (CKD-EPI)AfAm (>60 ml/min/1.73 sqM) Est GFR (CKD-EPI)NonAf (>60 ml/min/1.73 sqM) Glucose (74-99) mg/dL Plasma Lactic Acid Phi (0.7-2.0) mmol/L Calcium (8.4-10.2) mg/dL Magnesium (1.6-2.3) mg/dL Total Bilirubin (0.2-1.3) mg/dL AST (14-36) U/L ALT (4-34) U/L Alkaline Phosphatase (38-126) U/L Troponin I <0.012 (0.000-0.034) ng/mL Total Protein (6.3-8.2) g/dL Albumin (3.5-5.0) g/dL Urine Color Yellow Urine Appearance Clear (Clear) Urine pH 5.5 (5.0-8.0) Ur Specific [place] 1.032 (1.001-1.035) Urine Protein 1+ H (Negative) Urine Glucose (UA) 4+ H (Negative) Urine Ketones 2+ H (Negative) Urine Blood Negative (Negative) Urine Nitrite Negative (Negative) Urine Bilirubin Negative (Negative) Urine Urobilinogen <2.0 (<2.0) mg/dL Ur Leukocyte Esterase Negative (Negative) Urine RBC 4 (0-5) /hpf Urine WBC 2 (0-5) /hpf Ur Squamous Epith Cells 2 (0-4) /hpf Hyaline Casts 1 (0-2) /lpf Urine Mucus Rare H (None) /hpf Disposition Clinical Impression: Diarrhea, Hypomagnesemia, Generalized weakness Disposition: HOME SELF-CARE Condition: Good Instructions (If sedation given, give patient instructions): Acute Diarrhea (ED) Is patient prescribed a controlled substance at d/c from ED?: No Referrals: Jason Morse MD [Primary Care Provider] - 1-2 days Time of Disposition: 13:08
[2019-07-23 11:10] LABS: Basophils # (A) 0.1 k/uL (0-0.2); Basophils % (A) 1 %; Eosinophils # (A) 0.1 k/uL (0-0.7); Eosinophils % (A) 1 %; HCT 44.7 % (34.0-46.0); Lymphocytes # (A) 0.8 k/uL (1.0-4.8); Lymphocytes % (A) 12 %; MCHC 31.3 g/dL (31.0-37.0); MCV 86.3 fL (80.0-100.0); Mean Platelet Volume 8.2; Monocytes # (A) 0.4 k/uL (0-1.0); Monocytes % (A) 6 %; Neutrophils # (A) 5.6 k/uL (1.3-7.7); Neutrophils % (A) 78 %; Platelet Count 127 k/uL (150-450); RBC 5.18 m/uL (3.80-5.40); RDW 14.1 % (11.5-15.5); WBC 7.2 k/uL (3.8-10.6)
[2019-07-23 11:21] LABS: ALT 36 U/L (4-34); AST 54 U/L (14-36); African American GFR (CKD) >90 (>60 ml/min/1.73 sqM); Albumin 4.3 g/dL (3.5-5.0); Alkaline Phosphatase 191 U/L (38-126); Anion Gap 14 mmol/L; Blood Urea Nitrogen 13 mg/dL (7-17); Calcium 9.5 mg/dL (8.4-10.2); Carbon Dioxide 17 mmol/L (22-30); Chloride 103 mmol/L (98-107); Glucose 333 mg/dL (74-99); Magnesium 1.2 mg/dL (1.6-2.3); Non-African American GFR(CKD) 87 (>60 ml/min/1.73 sqM); Potassium 3.8 mmol/L (3.5-5.1); Sodium 134 mmol/L (137-145); Total Bilirubin 1.4 mg/dL (0.2-1.3); Total Protein 8.5 g/dL (6.3-8.2)
[2019-07-23 11:33] LABS: INR 1.2 (<1.2); Partial Thromboplastin Time 29.2 sec (22.0-30.0); Prothrombin Time 12.4 sec (9.0-12.0)
--- NOTE | 2019-07-23 11:54 | XR ---
EXAMINATION TYPE: XR chest 2V DATE OF EXAM: 07/23/2019 HISTORY: Weakness. REFERENCE: Previous study dated 08/30/2018. FINDINGS: There is a right shoulder arthroplasty in place. Heart is enlarged. The lungs are clear. Pleural spaces are clear. IMPRESSION: CARDIOMEGALY.
[2019-07-23 12:29] LABS: Appearance,Urine Clear (Clear); Bilirubin,Urine Negative (Negative); Blood,Urine Negative (Negative); Color,Urine Yellow; Glucose,Urine (UA) 4+ (Negative); Hyaline Casts,Urine 1 /lpf (0-2); Leukocyte Esterase,Urine Negative (Negative); Mucus,Urine Rare /hpf; Nitrite,Urine Negative (Negative); PH, Urine 5.5 (5.0-8.0); Protein,Urine 1+ (Negative); RBC,Urine 4 /hpf (0-5); Specific Gravity,Urine 1.032 (1.001-1.035); Squamous Epithelial Cell,Urine 2 /hpf (0-4); Urobilinogen,Urine <2.0 mg/dL (<2.0); WBC,Urine 2 /hpf (0-5)
[2019-07-23] MEDS ORDERED: cefTRIAXone IN SWFI 1,000 MG/10 ML SYRINGE IVP STA (12:33)
[2019-07-23 12:44] LABS: Ketones,Urine 2+ (Negative)
[2019-07-23] MEDS ORDERED: MAGNESIUM SULFATE-D5W PMX 1 GM in DEXTROSE/WATER 1 100ML.BAG IVPB ONE (12:54)
[2019-07-23 13:16] LABS: Glucose,Whole Blood 254 mg/dL (75-99)
[2019-07-23 15:26] VITALS: BP 153/77; PULSE 77; RESP 18; TEMP 98
== END 2019-07-23 15:04 | disposition home or self-care (01) ==
LOC: EC 10:20
DX: R19.7 Diarrhea, unspecified (principal); E83.42 Hypomagnesemia; D64.9 Anemia, unspecified; E11.9 Type 2 diabetes mellitus without complications; G25.81 Restless legs syndrome; I11.0 Hypertensive heart disease with heart failure; I50.9 Heart failure, unspecified; K21.9 Gastro-esophageal reflux disease without esophagitis; K74.60 Unspecified cirrhosis of liver; Z88.8 Allergy status to other drugs, medicaments and biological substances; Z79.4 Long term (current) use of insulin; Z79.899 Other long term (current) drug therapy; Z87.891 Personal history of nicotine dependence; Z87.19 Personal history of other diseases of the digestive system; Z87.11 Personal history of peptic ulcer disease; Z98.890 Other specified postprocedural states
CPT/HCPCS: 36415; 93005; 80053; 83605; 83735; 84484; 85025; 85610; 85730; 81001; 71046; 99285; 96365; 96366; 96361; J3475

== ENCOUNTER 2019-08-19 | Emergency (ER) | payer MEDICARE, OTHER | END 2019-08-19 15:25 | disposition home or self-care (01) | CPT/HCPCS: 36415; 80053; 82150; 83690; 85025; 74018; 99285; 96374; 96375; 96361; J2405; C9113 ==

== ENCOUNTER → 2020-06-04 | Outpatient (CLI) | payer MEDICARE, OTHER | END | disposition home or self-care (01) | LOC: LABWHC1 12:32 | PROVIDERS: ATTEND Nurse Practitioner Adult Health | DX: R05 Cough (principal); R06.02 Shortness of breath; R50.9 Fever, unspecified | CPT/HCPCS: U0003; C9803 ==

== ENCOUNTER → 2020-07-06 | Outpatient (CLI) | payer MEDICARE, OTHER ==
--- NOTE | 2020-07-06 08:45 | US ---
EXAMINATION TYPE: US liver DATE OF EXAM: 07/06/2020 COMPARISON: NONE CLINICAL HISTORY: K74.60 CIRRHOSIS OF LIVER. EXAM MEASUREMENTS: Liver Length: 15.4 cm Gallbladder Wall: Surgically absent CBD: 0.9 cm Right Kidney: 10.2 x 4.8 x 4.8 cm Pancreas: heterogeneous Liver: Increased attenuation, decreased visualization of vessels suggestive of fatty infiltrate Gallbladder: Surgically absent Evidence for sonographic Perez's sign: No CBD: wnl Right Kidney: wnl IMPRESSION: 1. Fatty liver.
[2020-07-06 09:18] LABS: Basophils # (A) 0.1 k/uL (0-0.2); Basophils % (A) 1 %; Eosinophils # (A) 0.1 k/uL (0-0.7); Eosinophils % (A) 2 %; HGB 12.5 gm/dL (11.4-16.0); Hypochromasia Slight; Lymphocytes # (A) 1.4 k/uL (1.0-4.8); Lymphocytes % (A) 22 %; MCHC 32.2 g/dL (31.0-37.0); MCV 83.8 fL (80.0-100.0); Mean Platelet Volume 8.2; Monocytes # (A) 0.5 k/uL (0-1.0); Monocytes % (A) 7 %; Neutrophils # (A) 4.3 k/uL (1.3-7.7); Neutrophils % (A) 67 %; Platelet Count 140 k/uL (150-450); RBC 4.65 m/uL (3.80-5.40); RDW 15.3 % (11.5-15.5); WBC 6.4 k/uL (3.8-10.6)
[2020-07-06 09:36] LABS: ALT 24 U/L (4-34); African American GFR (CKD) >90 (>60 ml/min/1.73 sqM); Albumin 3.9 g/dL (3.5-5.0); Anion Gap 9 mmol/L; Blood Urea Nitrogen 12 mg/dL (7-17); Calcium 9.2 mg/dL (8.4-10.2); Carbon Dioxide 27 mmol/L (22-30); Chloride 100 mmol/L (98-107); Glucose 188 mg/dL (74-99); Non-African American GFR(CKD) 89 (>60 ml/min/1.73 sqM); Sodium 136 mmol/L (137-145); Total Bilirubin 0.8 mg/dL (0.2-1.3)
[2020-07-06 09:46] LABS: AST 46 U/L (14-36); Alkaline Phosphatase 138 U/L (38-126); Potassium 4.3 mmol/L (3.5-5.1)
== END | disposition home or self-care (01) ==
LOC: RADUSWWP 07:03
PROVIDERS: ATTEND Internal Medicine Gastroenterology
DX: K76.0 Fatty (change of) liver, not elsewhere classified (principal); K74.60 Unspecified cirrhosis of liver; R10.9 Unspecified abdominal pain
CPT/HCPCS: 76705; 80053; 82105; 85025

== ENCOUNTER 2020-11-08 04:40 | Emergency (ER) | payer MEDICARE, OTHER ==
[2020-11-08] MEDS ORDERED: MORPHINE SULFATE 4 MG/ML SYRINGE IV STA (05:05)
[2020-11-08] MEDS ORDERED: SODIUM CHLORIDE 0.9% 1,000 ML IV STA (05:05)
[2020-11-08 06:07] LABS: Basophils % (A) 1 %; Eosinophils # (A) 0.2 k/uL (0-0.7); Eosinophils % (A) 3 %; HCT 33.2 % (34.0-46.0); HGB 10.8 gm/dL (11.4-16.0); Hypochromasia Slight; Lymphocytes # (A) 1.3 k/uL (1.0-4.8); Lymphocytes % (A) 22 %; MCH 26.3 pg (25.0-35.0); MCHC 32.5 g/dL (31.0-37.0); MCV 81.1 fL (80.0-100.0); Mean Platelet Volume 7.3; Monocytes # (A) 0.5 k/uL (0-1.0); Monocytes % (A) 8 %; Neutrophils # (A) 3.8 k/uL (1.3-7.7); Neutrophils % (A) 65 %; Platelet Count 113 k/uL (150-450); RBC 4.09 m/uL (3.80-5.40); RDW 14.9 % (11.5-15.5); WBC 5.9 k/uL (3.8-10.6)
[2020-11-08 06:15] LABS: Appearance,Urine Clear (Clear); Bilirubin,Urine Negative (Negative); Blood,Urine Negative (Negative); Color,Urine Light Yellow; Glucose,Urine (UA) 4+ (Negative); INR 1.1 (<1.2); Ketones,Urine Negative (Negative); Leukocyte Esterase,Urine Negative (Negative); Nitrite,Urine Negative (Negative); PH, Urine 6.5 (5.0-8.0); Protein,Urine Negative (Negative); Prothrombin Time 11.5 sec (9.0-12.0); Specific Gravity,Urine 1.008 (1.001-1.035); Urobilinogen,Urine <2.0 mg/dL (<2.0)
[2020-11-08] MEDS ORDERED: HYDROmorphone 1 MG/ML 1 ML SYRINGE IVP STA (06:20)
[2020-11-08] MEDS ORDERED: KETOROLAC 15 MG/ML 1 ML VIAL IVP STA (06:20)
--- NOTE | 2020-11-08 06:21 | ED ---
Abdominal Pain HPI - General Chief Complaint: Abdominal Pain Stated Complaint: poss kidney stone Time Seen by Provider: 11/08/20 04:59 Source: patient, family Mode of arrival: ambulatory Limitations: no limitations - Related Data Home Medications Medication Instructions Recorded Confirmed HYDROcodone/APAP 10-325MG [[place] 1 tab PO Q6H PRN 05/14/17 03/31/19 10-325] Insulin Detemir (Levemir) [Levemir] 70 unit SQ BID 05/14/17 03/31/19 sitaGLIPtin PHOS/metFORMIN HCL 1 tab PO BID 05/14/17 03/31/19 [Janumet Xr 50-1,000 mg Tablet] Atorvastatin [Lipitor] 40 mg PO DAILY 01/11/18 03/31/19 Pramipexole Di-HCl [Mirapex] 1 mg PO BID 01/11/18 03/31/19 Esomeprazole Magnesium [NexIUM] 40 mg PO DAILY 02/21/18 03/31/19 Insulin Glulisine [Apidra] See Protocol SQ AC-TID 08/30/18 03/31/19 lisinopriL [Zestril] 5 mg PO DAILY 03/28/19 03/31/19 Previous Rx's Medication Instructions Recorded Cephalexin [Keflex] 500 mg PO Q12HR 7 Days #14 cap 03/29/19 Ondansetron [Zofran] 4 mg PO Q8HR PRN #8 tab 08/19/19 Allergies Allergy/AdvReac Type Severity Reaction Status Date / Time pentazocine [From [place]] Allergy Hallucinati Verified 11/08/20 04:46 ons Review of Systems ROS Statement: Those systems with pertinent positive or pertinent negative responses have been documented in the HPI. ROS Other: All systems not noted in ROS Statement are negative. Past Medical History Past Medical History: Heart Failure, Diabetes Mellitus, GERD/Reflux, GI Bleed, Hypertension, Liver Disease Additional Past Medical History / Comment(s): anemia and has had several iron infusions/blood transfusions,past bleeding gastric ulcers, rectal bleed, nonalcoholic liver cirrhosis, chronic diarrhea past 3 years ,RLS, low back/L hip pain, clausterphobia. History of Any Multi-Drug Resistant Organisms: None Reported Past Surgical History: Hysterectomy, Orthopedic Surgery, Tonsillectomy Additional Past Surgical History / Comment(s): Hemorrhagic cyst removed from right ureter; Right foot surgery d/t crush injury; Left hip pain stimulator implanted, Steel iris in right arm, EGDs/colonoscopies, bone marrow aspirations, low back and cervical injections for pain, bilateral cataract removals with lens implants. Past Anesthesia/Blood Transfusion Reactions: No Reported Reaction, Motion Sickness Additional Past Anesthesia/Blood Transfusion Reaction / Comment(s): Pt has had several blood transfusions without reaction. Pt has clausterphobia. Past Psychological History: No Psychological Hx Reported Smoking Status: Current every day smoker, Former smoker Past Alcohol Use History: None Reported Past Drug Use History: None Reported - Past Family History Father Additional Family Medical History / Comment(s): Father was an alcoholic but was sober for the last 9 yrs of his life. Mother Family Medical History: Coronary Artery Disease (CAD), Diabetes Mellitus Additional Family Medical History / Comment(s): Low hgb. She during a colonoscopy. She had 4 vessel CABG General Exam Limitations: no limitations Course Vital Signs 11/08/20 04:42 Temperature 98.1 F Pulse Rate 74 Respiratory 20 Rate Blood Pressure 166/75 O2 Sat by Pulse 100 Oximetry Medical Decision Making - Lab Data Result diagrams: 11/08/20 05:30 11/08/20 05:30 Lab Results 11/08/20 11/08/20 11/08/20 Range/Units 05:30 05:30 05:30 WBC 5.9 (3.8-10.6) k/uL RBC 4.09 (3.80-5.40) m/uL Hgb 10.8 L (11.4-16.0) gm/dL Hct 33.2 L (34.0-46.0) % MCV 81.1 (80.0-100.0) fL MCH 26.3 (25.0-35.0) pg MCHC 32.5 (31.0-37.0) g/dL RDW 14.9 (11.5-15.5) % Plt Count 113 L (150-450) k/uL MPV 7.3 Neutrophils % 65 % Lymphocytes % 22 % Monocytes % 8 % Eosinophils % 3 % Basophils % 1 % Neutrophils # 3.8 (1.3-7.7) k/uL Lymphocytes # 1.3 (1.0-4.8) k/uL Monocytes # 0.5 (0-1.0) k/uL Eosinophils # 0.2 (0-0.7) k/uL Basophils # 0.0 (0-0.2) k/uL Hypochromasia Slight PT 11.5 (9.0-12.0) sec INR 1.1 (<1.2) APTT 27.0 (22.0-30.0) sec Sodium (137-145) mmol/L Potassium (3.5-5.1) mmol/L Chloride (98-107) mmol/L Carbon Dioxide (22-30) mmol/L Anion Gap mmol/L BUN (7-17) mg/dL Creatinine (0.52-1.04) mg/dL Est GFR (CKD-EPI)AfAm (>60 ml/min/1.73 sqM) Est GFR (CKD-EPI)NonAf (>60 ml/min/1.73 sqM) Glucose (74-99) mg/dL Plasma Lactic Acid Phi (0.7-2.0) mmol/L Calcium (8.4-10.2) mg/dL Total Bilirubin (0.2-1.3) mg/dL AST (14-36) U/L ALT (4-34) U/L Alkaline Phosphatase (38-126) U/L Troponin I (0.000-0.034) ng/mL Total Protein (6.3-8.2) g/dL Albumin (3.5-5.0) g/dL Amylase (30-110) U/L Lipase (23-300) U/L Urine Color Light Yellow Urine Appearance Clear (Clear) Urine pH 6.5 (5.0-8.0) Ur Specific [place] 1.008 (1.001-1.035) Urine Protein Negative (Negative) Urine Glucose (UA) 4+ H (Negative) Urine Ketones Negative (Negative) Urine Blood Negative (Negative) Urine Nitrite Negative (Negative) Urine Bilirubin Negative (Negative) Urine Urobilinogen <2.0 (<2.0) mg/dL Ur Leukocyte Esterase Negative (Negative) 11/08/20 11/08/20 11/08/20 Range/Units 05:30 05:30 05:30 WBC (3.8-10.6) k/uL RBC (3.80-5.40) m/uL Hgb (11.4-16.0) gm/dL Hct (34.0-46.0) % MCV (80.0-100.0) fL MCH (25.0-35.0) pg MCHC (31.0-37.0) g/dL RDW (11.5-15.5) % Plt Count (150-450) k/uL MPV Neutrophils % % Lymphocytes % % Monocytes % % Eosinophils % % Basophils % % Neutrophils # (1.3-7.7) k/uL Lymphocytes # (1.0-4.8) k/uL Monocytes # (0-1.0) k/uL Eosinophils # (0-0.7) k/uL Basophils # (0-0.2) k/uL Hypochromasia PT (9.0-12.0) sec INR (<1.2) APTT (22.0-30.0) sec Sodium 136 L (137-145) mmol/L Potassium 4.2 (3.5-5.1) mmol/L Chloride 103 (98-107) mmol/L Carbon Dioxide 27 (22-30) mmol/L Anion Gap 6 mmol/L BUN 13 (7-17) mg/dL Creatinine 0.58 (0.52-1.04) mg/dL Est GFR (CKD-EPI)AfAm >90 (>60 ml/min/1.73 sqM) Est GFR (CKD-EPI)NonAf >90 (>60 ml/min/1.73 sqM) Glucose 260 H (74-99) mg/dL Plasma Lactic Acid Phi 1.2 (0.7-2.0) mmol/L Calcium 9.3 (8.4-10.2) mg/dL Total Bilirubin 0.6 (0.2-1.3) mg/dL AST 37 H (14-36) U/L ALT 19 (4-34) U/L Alkaline Phosphatase 124 (38-126) U/L Troponin I <0.012 (0.000-0.034) ng/mL Total Protein 7.5 (6.3-8.2) g/dL Albumin 3.9 (3.5-5.0) g/dL Amylase 50 (30-110) U/L Lipase 150 (23-300) U/L Urine Color Urine Appearance (Clear) Urine pH (5.0-8.0) Ur Specific [place] (1.001-1.035) Urine Protein (Negative) Urine Glucose (UA) (Negative) Urine Ketones (Negative) Urine Blood (Negative) Urine Nitrite (Negative) Urine Bilirubin (Negative) Urine Urobilinogen (<2.0) mg/dL Ur Leukocyte Esterase (Negative) Disposition Clinical Impression: Right ureteral calculus Disposition: HOME SELF-CARE Condition: Good Instructions (If sedation given, give patient instructions): Kidney Stones (ED) Is patient prescribed a controlled substance at d/c from ED?: No Referrals: Giovanni Hanks MD [Primary Care Provider] - 1-2 days
[2020-11-08 06:23] LABS: ALT 19 U/L (4-34); AST 37 U/L (14-36); African American GFR (CKD) >90 (>60 ml/min/1.73 sqM); Albumin 3.9 g/dL (3.5-5.0); Alkaline Phosphatase 124 U/L (38-126); Amylase 50 U/L (30-110); Anion Gap 6 mmol/L; Blood Urea Nitrogen 13 mg/dL (7-17); Calcium 9.3 mg/dL (8.4-10.2); Carbon Dioxide 27 mmol/L (22-30); Chloride 103 mmol/L (98-107); Glucose 260 mg/dL (74-99); Lipase 150 U/L (23-300); Non-African American GFR(CKD) >90 (>60 ml/min/1.73 sqM); Potassium 4.2 mmol/L (3.5-5.1); Sodium 136 mmol/L (137-145); Total Bilirubin 0.6 mg/dL (0.2-1.3); Total Protein 7.5 g/dL (6.3-8.2)
--- NOTE | 2020-11-08 06:38 | CT ---
EXAM: CT Abdomen and Pelvis Without Intravenous Contrast CLINICAL HISTORY: ITS.REASON CT Reason: pain TECHNIQUE: Axial computed tomography images of the abdomen and pelvis without intravenous contrast. CTDI is 11.1 mGy and DLP is 613.7 mGy-cm. This CT exam was performed using one or more of the following dose reduction techniques: automated exposure control, adjustment of the mA and/or kV according to patient size, and/or use of iterative reconstruction technique. COMPARISON: CT AP 03-28-2019 FINDINGS: Lung bases: Unremarkable. No mass. No consolidation. Heart: Mild cardiomegaly. Mediastinum: Small hiatal hernia. ABDOMEN: Liver: Mild surface nodularity of the liver, consistent with cirrhosis. Associated, splenomegaly measuring up to 14.1 cm. Associated, distal esophageal varices. Gallbladder and bile ducts: Cholecystectomy. No ductal dilation. Pancreas: Unremarkable. No ductal dilation. Spleen: See above. Adrenals: Unremarkable. No mass. Kidneys and ureters: Nonobstructing 3 mm left lower pole renal calculus.. No right-sided nephrolithiasis. No bilateral obstructive uropathy no UVJ calculi. Stomach and bowel: Diverticulosis, without acute diverticulitis. No small bowel obstruction. PELVIS: Appendix: No acute appendicitis. Bladder: Unremarkable. No stones. Reproductive: Unremarkable as visualized. ABDOMEN and PELVIS: Intraperitoneal space: Unremarkable. No free air. No significant fluid collection. Bones/joints: Grade 1 anterolisthesis of L4 on L5, measuring 5 mm. Degenerative changes of the spine. No acute fracture. No dislocation. Soft tissues: Unremarkable. Vasculature: Severe atherosclerotic changes of the aorta. Lymph nodes: Unremarkable. No enlarged lymph nodes. Tubes, lines and devices: Spinal cord stimulator generator device with lead that terminates in the dorsal spinal canal. IMPRESSION: 1. Nonobstructing 3 mm left lower pole renal calculus. No right-sided nephrolithiasis. No bilateral obstructive uropathy no UVJ calculi. 2. Mild surface nodularity of the liver, consistent with cirrhosis. Associated, splenomegaly measuring up to 14.1 cm. Associated, distal esophageal varices. Cholecystectomy. 3. Diverticulosis, without acute diverticulitis. No small bowel obstruction. Small hiatal hernia. 4. Grade 1 anterolisthesis of L4 on L5, measuring 5 mm.
[2020-11-08] MEDS ORDERED: ONDANSETRON 4 MG ODT STARTER PACK 2 TAB BTL PO STA (07:16)
[2020-11-08] MEDS ORDERED: IBUPROFEN 600 MG STARTER PACK 4 TAB BTL PO STA (07:16)
[2020-11-08] MEDS ORDERED: ACET/COD 300 MG/30 MG STARTER PACK 6 TAB BTL PO STA (07:16)
[2020-11-08 07:38] VITALS: BP 174/74; PULSE 69; RESP 18; TEMP 98.7
== END 2020-11-08 07:47 | disposition home or self-care (01) ==
LOC: EC 04:40
DX: N20.1 Calculus of ureter (principal); I11.0 Hypertensive heart disease with heart failure; I50.9 Heart failure, unspecified; E11.9 Type 2 diabetes mellitus without complications; K21.9 Gastro-esophageal reflux disease without esophagitis; F17.200 Nicotine dependence, unspecified, uncomplicated; Z90.710 Acquired absence of both cervix and uterus; Z90.09 Acquired absence of other part of head and neck; Z79.84 Long term (current) use of oral hypoglycemic drugs
CPT/HCPCS: 36415; 80053; 82150; 83605; 83690; 84484; 85025; 85610; 85730; 81003; 74176; 99284; 96374; 96375 ×2; J2270; J1170; J1885; S0119

== ENCOUNTER 2020-11-26 22:26 | Emergency (ER) | payer MEDICARE, OTHER ==
[2020-11-26 22:30] VITALS: TEMP 98.4
[2020-11-26] MEDS ORDERED: SODIUM CHLORIDE 0.9% 1,000 ML IV STA (23:01)
[2020-11-26] MEDS ORDERED: KETOROLAC 15 MG/ML 1 ML VIAL IVP STA (23:01)
[2020-11-26 23:12] LABS: Basophils % (A) 1 %; Eosinophils # (A) 0.2 k/uL (0-0.7); Eosinophils % (A) 2 %; HCT 33.9 % (34.0-46.0); Hypochromasia Slight; Lymphocytes # (A) 1.8 k/uL (1.0-4.8); Lymphocytes % (A) 25 %; MCH 26.5 pg (25.0-35.0); MCHC 32.4 g/dL (31.0-37.0); MCV 81.7 fL (80.0-100.0); Mean Platelet Volume 8.3; Monocytes # (A) 0.4 k/uL (0-1.0); Monocytes % (A) 6 %; Neutrophils # (A) 4.8 k/uL (1.3-7.7); Neutrophils % (A) 66 %; Platelet Count 138 k/uL (150-450); RBC 4.15 m/uL (3.80-5.40); WBC 7.4 k/uL (3.8-10.6)
[2020-11-26 23:21] LABS: Appearance,Urine Clear (Clear); Bilirubin,Urine Negative (Negative); Blood,Urine Negative (Negative); Color,Urine Yellow; Glucose,Urine (UA) 4+ (Negative); Ketones,Urine Negative (Negative); Leukocyte Esterase,Urine Negative (Negative); Nitrite,Urine Negative (Negative); PH, Urine 5.5 (5.0-8.0); Protein,Urine Negative (Negative); Specific Gravity,Urine 1.021 (1.001-1.035); Urobilinogen,Urine <2.0 mg/dL (<2.0)
[2020-11-26 23:24] LABS: ALT 22 U/L (4-34); AST 38 U/L (14-36); African American GFR (CKD) >90 (>60 ml/min/1.73 sqM); Albumin 4.1 g/dL (3.5-5.0); Alkaline Phosphatase 142 U/L (38-126); Anion Gap 8 mmol/L; Blood Urea Nitrogen 13 mg/dL (7-17); Calcium 9.2 mg/dL (8.4-10.2); Carbon Dioxide 23 mmol/L (22-30); Chloride 103 mmol/L (98-107); Glucose 319 mg/dL (74-99); Lipase 225 U/L (23-300); Non-African American GFR(CKD) 85 (>60 ml/min/1.73 sqM); Potassium 4.6 mmol/L (3.5-5.1); Sodium 134 mmol/L (137-145); Total Bilirubin 0.4 mg/dL (0.2-1.3); Total Protein 7.6 g/dL (6.3-8.2)
[2020-11-27 00:41] VITALS: BP 156/70; PULSE 71; RESP 20
--- NOTE | 2020-11-27 00:43 | CT ---
EXAMINATION TYPE: CT abdomen pelvis w con DATE OF EXAM: 11/26/2020 COMPARISON: 11/08/2020 HISTORY: left flank pain. known kidney stones CT DLP: 1034.6 mGycm Automated exposure control for dose reduction was used. CONTRAST: Performed with IV Contrast, patient injected with 100ml mL of Isovue 300. Lung bases are clear of consolidation. There is no pleural effusion. Heart size is normal. There is n o pericardial effusion. Liver spleen stomach pancreas appear intact. The bile ducts are not dilated. There are clips from cho lecystectomy. There are few varices at the gastroesophageal junction. There is no adrenal mass. Kidneys have normal size. There is 4 mm calculus lower pole left kidney. Th ere is no retroperitoneal adenopathy. There is no hydronephrosis. There is no evidence of a renal mas s. Abdominal aorta is atheromatous. Ureters are not dilated. Delayed images show reduced contrast in the collecting systems. Bladder distends smoothly. There is no inguinal hernia. There is no free fluid in the pelvis. Lumbar vertebra have fairly normal alignment. There is no compression fracture. There is a minimal degenerat fani 4 mm L4-5 spondylolisthesis. The bony pelvis is intact. There is mild hypertrophic facet arthropa thy in the lower lumbar spine. The hip joints are intact. There is no mesenteric edema. There is no ascites or free air. There is no bowel obstruction. Appendi x is not seen. There is no sign of thickened appendix. There are multiple sigmoid diverticula. There is no diverticulitis. IMPRESSION: No evidence of renal obstruction. Nonobstructing left renal calculus. Decreased contrast in the kidne ys on the delayed images could relate to some renal impairment. There are some gastroesophageal varices that could relate to portal venous hypertension. Spleen is to p normal in size. No change compared to old exam.
[2020-11-27 01:05] LABS: Glucose,Whole Blood 264 mg/dL (75-99)
--- NOTE | 2020-11-27 01:14 | ED ---
General Adult HPI - General Chief complaint: Back Pain/Injury Stated complaint: kidney stone Source: patient Mode of arrival: ambulatory Limitations: no limitations - History of Present Illness Initial comments: 75-year-old female with a past medical history of kidney stones presents to the emergency room for a chief complaint of right flank pain. Patient reports that this started 2 hours prior to arrival. Patient was seen in the ER 2 weeks ago and diagnosed with a kidney stone. Patient states this feels exactly like a kidney stone. States she has had kidney stones several times in the past. Patient denies nausea vomiting. Denies fevers.Patient has no other complaints at this time including shortness of breath, chest pain, abdominal pain, nausea or vomiting, headache, or visual changes. - Related Data Home Medications Medication Instructions Recorded Confirmed HYDROcodone/APAP 10-325MG [[place] 1 tab PO Q6H PRN 05/14/17 03/31/19 10-325] Insulin Detemir (Levemir) [Levemir] 70 unit SQ BID 05/14/17 03/31/19 sitaGLIPtin PHOS/metFORMIN HCL 1 tab PO BID 05/14/17 03/31/19 [Janumet Xr 50-1,000 mg Tablet] Atorvastatin [Lipitor] 40 mg PO DAILY 01/11/18 03/31/19 Pramipexole Di-HCl [Mirapex] 1 mg PO BID 01/11/18 03/31/19 Esomeprazole Magnesium [NexIUM] 40 mg PO DAILY 02/21/18 03/31/19 Insulin Glulisine [Apidra] See Protocol SQ AC-TID 08/30/18 03/31/19 lisinopriL [Zestril] 5 mg PO DAILY 03/28/19 03/31/19 Previous Rx's Medication Instructions Recorded Cephalexin [Keflex] 500 mg PO Q12HR 7 Days #14 cap 03/29/19 Ondansetron [Zofran] 4 mg PO Q8HR PRN #8 tab 08/19/19 Allergies Allergy/AdvReac Type Severity Reaction Status Date / Time pentazocine [From [place]] Allergy Hallucinati Verified 11/26/20 22:30 ons Review of Systems ROS Statement: Those systems with pertinent positive or pertinent negative responses have been documented in the HPI. ROS Other: All systems not noted in ROS Statement are negative. Past Medical History Past Medical History: Heart Failure, Diabetes Mellitus, GERD/Reflux, GI Bleed, Hypertension, Liver Disease Additional Past Medical History / Comment(s): anemia and has had several iron infusions/blood transfusions,past bleeding gastric ulcers, rectal bleed, nonalco holic liver cirrhosis, chronic diarrhea past 3 years ,RLS, low back/L hip pain, clausterphobia. History of Any Multi-Drug Resistant Organisms: None Reported Past Surgical History: Hysterectomy, Orthopedic Surgery, Tonsillectomy Additional Past Surgical History / Comment(s): Hemorrhagic cyst removed from right ureter; Right foot surgery d/t crush injury; Left hip pain stimulator implanted, Steel iris in right arm, EGDs/colonoscopies, bone marrow aspirations, low back and cervical injections for pain, bilateral cataract removals with lens implants. Past Anesthesia/Blood Transfusion Reactions: No Reported Reaction, Motion Sickness Additional Past Anesthesia/Blood Transfusion Reaction / Comment(s): Pt has had several blood transfusions without reaction. Pt has clausterphobia. Past Psychological History: No Psychological Hx Reported Smoking Status: Current every day smoker, Former smoker Past Alcohol Use History: None Reported Past Drug Use History: None Reported - Past Family History Father Additional Family Medical History / Comment(s): Father was an alcoholic but was sober for the last 9 yrs of his life. Mother Family Medical History: Coronary Artery Disease (CAD), Diabetes Mellitus Additional Family Medical History / Comment(s): Low hgb. She during a colonoscopy. She had 4 vessel CABG General Exam Limitations: no limitations General appearance: alert, in no apparent distress Head exam: Present: atraumatic, normocephalic, normal inspection Eye exam: Present: normal appearance ENT exam: Present: normal exam, mucous membranes moist Neck exam: Present: normal inspection. Absent: tenderness, meningismus, lymphadenopathy Respiratory exam: Present: normal lung sounds bilaterally. Absent: respiratory distress, wheezes, rales, rhonchi, stridor Cardiovascular Exam: Present: regular rate, normal rhythm, normal heart sounds. Absent: systolic murmur, diastolic murmur, rubs, gallop, clicks GI/Abdominal exam: Present: soft, normal bowel sounds. Absent: distended, tenderness, guarding, rebound, rigid Back exam: Present: CVA tenderness (R). Absent: CVA tenderness (L) Course Vital Signs 11/26/20 11/27/20 22:28 00:39 Temperature 98.4 F Pulse Rate 82 71 Respiratory 16 20 Rate Blood Pressure 156/55 156/70 O2 Sat by Pulse 99 98 Oximetry Medical Decision Making - Medical Decision Making Vitals are stable. Physical exam does show right flank CVA tenderness however no abdominal tenderness. CBC unremarkable. Chronic anemia noted. CMP does sh ow hyperglycemia that improved with fluids. Minimal transaminitis. Urinalysis does show 4+ glucose. CT abdomen and pelvis shows no evidence of renal obstruction. There is a nonobstructing left renal calculus. There is decreased contrast in the kidneys. There are some gastroesophageal varices that could relate to portal venous hypertension. Spleen is top size and normal. No change compared to old exam. Patient will be discharged home to follow up with urology as well as primary care. She will return for any worsening symptoms. - Lab Data Result diagrams: 11/26/20 23:04 11/26/20 23:04 Lab Results 11/26/20 11/26/20 11/26/20 Range/Units 23:04 23:04 23:04 WBC 7.4 (3.8-10.6) k/uL RBC 4.15 (3.80-5.40) m/uL Hgb 11.0 L (11.4-16.0) gm/dL Hct 33.9 L (34.0-46.0) % MCV 81.7 (80.0-100.0) fL MCH 26.5 (25.0-35.0) pg MCHC 32.4 (31.0-37.0) g/dL RDW 15.0 (11.5-15.5) % Plt Count 138 L (150-450) k/uL MPV 8.3 Neutrophils % 66 % Lymphocytes % 25 % Monocytes % 6 % Eosinophils % 2 % Basophils % 1 % Neutrophils # 4.8 (1.3-7.7) k/uL Lymphocytes # 1.8 (1.0-4.8) k/uL Monocytes # 0.4 (0-1.0) k/uL Eosinophils # 0.2 (0-0.7) k/uL Basophils # 0.0 (0-0.2) k/uL Hypochromasia Slight Sodium 134 L (137-145) mmol/L Potassium 4.6 (3.5-5.1) mmol/L Chloride 103 (98-107) mmol/L Carbon Dioxide 23 (22-30) mmol/L Anion Gap 8 mmol/L BUN 13 (7-17) mg/dL Creatinine 0.71 (0.52-1.04) mg/dL Est GFR (CKD-EPI)AfAm >90 (>60 ml/min/1.73 sqM) Est GFR (CKD-EPI)NonAf 85 (>60 ml/min/1.73 sqM) Glucose 319 H (74-99) mg/dL POC Glucose (mg/dL) (75-99) mg/dL POC Glu Rate Clerk Passenger ID Calcium 9.2 (8.4-10.2) mg/dL Total Bilirubin 0.4 (0.2-1.3) mg/dL AST 38 H (14-36) U/L ALT 22 (4-34) U/L Alkaline Phosphatase 142 H (38-126) U/L Total Protein 7.6 (6.3-8.2) g/dL Albumin 4.1 (3.5-5.0) g/dL Lipase 225 (23-300) U/L Urine Color Yellow Urine Appearance Clear (Clear) Urine pH 5.5 (5.0-8.0) Ur Specific [place] 1.021 (1.001-1.035) Urine Protein Negative (Negative) Urine Glucose (UA) 4+ H (Negative) Urine Ketones Negative (Negative) Urine Blood Negative (Negative) Urine Nitrite Negative (Negative) Urine Bilirubin Negative (Negative) Urine Urobilinogen <2.0 (<2.0) mg/dL Ur Leukocyte Esterase Negative (Negative) 11/27/20 Range/Units 01:02 WBC (3.8-10.6) k/uL RBC (3.80-5.40) m/uL Hgb (11.4-16.0) gm/dL Hct (34.0-46.0) % MCV (80.0-100.0) fL MCH (25.0-35.0) pg MCHC (31.0-37.0) g/dL RDW (11.5-15.5) % Plt Count (150-450) k/uL MPV Neutrophils % % Lymphocytes % % Monocytes % % Eosinophils % % Basophils % % Neutrophils # (1.3-7.7) k/uL Lymphocytes # (1.0-4.8) k/uL Monocytes # (0-1.0) k/uL Eosinophils # (0-0.7) k/uL Basophils # (0-0.2) k/uL Hypochromasia Sodium (137-145) mmol/L Potassium (3.5-5.1) mmol/L Chloride (98-107) mmol/L Carbon Dioxide (22-30) mmol/L Anion Gap mmol/L BUN (7-17) mg/dL Creatinine (0.52-1.04) mg/dL Est GFR (CKD-EPI)AfAm (>60 ml/min/1.73 sqM) Est GFR (CKD-EPI)NonAf (>60 ml/min/1.73 sqM) Glucose (74-99) mg/dL POC Glucose (mg/dL) 264 H (75-99) mg/dL POC Glu Rate Clerk Passenger ID Lexi, [place] Calcium (8.4-10.2) mg/dL Total Bilirubin (0.2-1.3) mg/dL AST (14-36) U/L ALT (4-34) U/L Alkaline Phosphatase (38-126) U/L Total Protein (6.3-8.2) g/dL Albumin (3.5-5.0) g/dL Lipase (23-300) U/L Urine Color Urine Appearance (Clear) Urine pH (5.0-8.0) Ur Specific [place] (1.001-1.035) Urine Protein (Negative) Urine Glucose (UA) (Negative) Urine Ketones (Negative) Urine Blood (Negative) Urine Nitrite (Negative) Urine Bilirubin (Negative) Urine Urobilinogen (<2.0) mg/dL Ur Leukocyte Esterase (Negative) Disposition Clinical Impression: Flank pain, Nephrolithiasis Disposition: HOME SELF-CARE Condition: Good Instructions (If sedation given, give patient instructions): Kidney Stones (ED) Additional Instructions: Please take Motrin and Tylenol for pain. Drink plenty of fluids. Please follow-up with your doctor in one to 2 days. Follow-up with urology as well. Return to the emergency room for any worsening symptoms. Is patient prescribed a controlled substance at d/c from ED?: No Referrals: Giovanni Hanks MD [Primary Care Provider] - 1-2 days Kartik Spence MD [STAFF PHYSICIAN] - 1-2 days Time of Disposition: 01:13
== END 2020-11-27 01:30 | disposition home or self-care (01) ==
LOC: EC 22:26
DX: N20.0 Calculus of kidney (principal); I11.0 Hypertensive heart disease with heart failure; I50.9 Heart failure, unspecified; E11.9 Type 2 diabetes mellitus without complications; K21.9 Gastro-esophageal reflux disease without esophagitis; F17.200 Nicotine dependence, unspecified, uncomplicated; Z79.4 Long term (current) use of insulin
CPT/HCPCS: 36415 ×2; 80053; 83690; 85025; 81003; 74177; 99284; 96374; 96361 ×2; J1885; Q9967

== ENCOUNTER 2021-02-18 05:34 | Emergency (ER) | payer MEDICARE, OTHER ==
[2021-02-18] MEDS ORDERED: MORPHINE SULFATE 4 MG/ML SYRINGE IV STA (05:42)
[2021-02-18] MEDS ORDERED: SODIUM CHLORIDE 0.9% 1,000 ML IV STA (05:42)
[2021-02-18] MEDS ORDERED: HYDROmorphone 0.5 MG/0.5 ML SYRINGE IVP STA (05:42)
[2021-02-18] MEDS ORDERED: ONDANSETRON 4 MG/2 ML VIAL IVP STA (05:42)
--- NOTE | 2021-02-18 05:43 | ED ---
Abdominal Pain HPI - General Chief Complaint: Abdominal Pain Stated Complaint: Kidney Stones Time Seen by Provider: 02/18/21 05:42 Source: patient Mode of arrival: ambulatory Limitations: no limitations - Related Data Home Medications Medication Instructions Recorded Confirmed HYDROcodone/APAP 10-325MG [[place] 1 tab PO Q6H PRN 05/14/17 03/31/19 10-325] Insulin Detemir (Levemir) [Levemir] 70 unit SQ BID 05/14/17 03/31/19 sitaGLIPtin PHOS/metFORMIN HCL 1 tab PO BID 05/14/17 03/31/19 [Janumet Xr 50-1,000 mg Tablet] Atorvastatin [Lipitor] 40 mg PO DAILY 01/11/18 03/31/19 Pramipexole Di-HCl [Mirapex] 1 mg PO BID 01/11/18 03/31/19 Esomeprazole Magnesium [NexIUM] 40 mg PO DAILY 02/21/18 03/31/19 Insulin Glulisine [Apidra] See Protocol SQ AC-TID 08/30/18 03/31/19 lisinopriL [Zestril] 5 mg PO DAILY 03/28/19 03/31/19 Previous Rx's Medication Instructions Recorded Cephalexin [Keflex] 500 mg PO Q12HR 7 Days #14 cap 03/29/19 Ondansetron [Zofran] 4 mg PO Q8HR PRN #8 tab 08/19/19 Allergies Allergy/AdvReac Type Severity Reaction Status Date / Time pentazocine [From [place]] Allergy Hallucinati Verified 02/18/21 05:40 ons Review of Systems ROS Statement: Those systems with pertinent positive or pertinent negative responses have been documented in the HPI. ROS Other: All systems not noted in ROS Statement are negative. Past Medical History Past Medical History: Heart Failure, Diabetes Mellitus, GERD/Reflux, GI Bleed, Hypertension, Liver Disease Additional Past Medical History / Comment(s): anemia and has had several iron infusions/blood transfusions,past bleeding gastric ulcers, rectal bleed, nonalcoholic liver cirrhosis, chronic diarrhea past 3 years ,RLS, low back/L hip pain, clausterphobia. History of Any Multi-Drug Resistant Organisms: None Reported Past Surgical History: Hysterectomy, Orthopedic Surgery, Tonsillectomy Additional Past Surgical History / Comment(s): Hemorrhagic cyst removed from right ureter; Right foot surgery d/t crush injury; Left hip pain stimulator implanted, Steel iris in right arm, EGDs/colonoscopies, bone marrow aspirations, low back and cervical injections for pain, bilateral cataract removals with lens implants. Past Anesthesia/Blood Transfusion Reactions: No Reported Reaction, Motion Sickness Additional Past Anesthesia/Blood Transfusion Reaction / Comment(s): Pt has had several blood transfusions without reaction. Pt has clausterphobia. Past Psychological History: No Psychological Hx Reported Smoking Status: Current every day smoker, Former smoker Past Alcohol Use History: None Reported Past Drug Use History: None Reported - Past Family History Father Additional Family Medical History / Comment(s): Father was an alcoholic but was sober for the last 9 yrs of his life. Mother Family Medical History: Coronary Artery Disease (CAD), Diabetes Mellitus Additional Family Medical History / Comment(s): Low hgb. She during a col onoscopy. She had 4 vessel CABG General Exam Limitations: no limitations Course Vital Signs 02/18/21 05:38 Temperature 97.9 F Pulse Rate 76 Respiratory 20 Rate Blood Pressure 139/77 O2 Sat by Pulse 100 Oximetry Medical Decision Making - Lab Data Result diagrams: 02/18/21 05:53 02/18/21 05:53 Lab Results 02/18/21 02/18/21 02/18/21 Range/Units 05:53 05:53 05:53 WBC 6.9 (3.8-10.6) k/uL RBC 3.98 (3.80-5.40) m/uL Hgb 10.7 L (11.4-16.0) gm/dL Hct 32.9 L (34.0-46.0) % MCV 82.6 (80.0-100.0) fL MCH 26.8 (25.0-35.0) pg MCHC 32.4 (31.0-37.0) g/dL RDW 15.0 (11.5-15.5) % Plt Count 142 L (150-450) k/uL MPV 7.9 Neutrophils % 67 % Lymphocytes % 22 % Monocytes % 6 % Eosinophils % 2 % Basophils % 1 % Neutrophils # 4.6 (1.3-7.7) k/uL Lymphocytes # 1.6 (1.0-4.8) k/uL Monocytes # 0.4 (0-1.0) k/uL Eosinophils # 0.1 (0-0.7) k/uL Basophils # 0.0 (0-0.2) k/uL Hypochromasia Slight Sodium 134 L (137-145) mmol/L Potassium 5.1 (3.5-5.1) mmol/L Chloride 99 (98-107) mmol/L Carbon Dioxide 26 (22-30) mmol/L Anion Gap 9 mmol/L BUN 19 H (7-17) mg/dL Creatinine 0.72 (0.52-1.04) mg/dL Est GFR (CKD-EPI)AfAm >90 (>60 ml/min/1.73 sqM) Est GFR (CKD-EPI)NonAf 84 (>60 ml/min/1.73 sqM) Glucose 355 H (74-99) mg/dL Plasma Lactic Acid Phi (0.7-2.0) mmol/L Calcium 9.7 (8.4-10.2) mg/dL Total Bilirubin 0.5 (0.2-1.3) mg/dL AST 35 (14-36) U/L ALT 19 (4-34) U/L Alkaline Phosphatase 138 H (38-126) U/L Creatine Kinase 64 (30-135) U/L Total Protein 7.8 (6.3-8.2) g/dL Albumin 4.0 (3.5-5.0) g/dL Amylase 54 (30-110) U/L Lipase 180 (23-300) U/L Urine Color Light Yellow Urine Appearance Clear (Clear) Urine pH 6.5 (5.0-8.0) Ur Specific [place] 1.015 (1.001-1.035) Urine Protein Negative (Negative) Urine Glucose (UA) 4+ H (Negative) Urine Ketones Negative (Negative) Urine Blood Negative (Negative) Urine Nitrite Negative (Negative) Urine Bilirubin Negative (Negative) Urine Urobilinogen <2.0 (<2.0) mg/dL Ur Leukocyte Esterase Moderate H (Negative) Urine WBC 26 H (0-5) /hpf Ur Squamous Epith Cells 4 (0-4) /hpf Amorphous Sediment Rare H (None) /hpf Urine Bacteria Moderate H (None) /hpf Urine Mucus Rare H (None) /hpf 02/18/21 Range/Units 05:53 WBC (3.8-10.6) k/uL RBC (3.80-5.40) m/uL Hgb (11.4-16.0) gm/dL Hct (34.0-46.0) % MCV (80.0-100.0) fL MCH (25.0-35.0) pg MCHC (31.0-37.0) g/dL RDW (11.5-15.5) % Plt Count (150-450) k/uL MPV Neutrophils % % Lymphocytes % % Monocytes % % Eosinophils % % Basophils % % Neutrophils # (1.3-7.7) k/uL Lymphocytes # (1.0-4.8) k/uL Monocytes # (0-1.0) k/uL Eosinophils # (0-0.7) k/uL Basophils # (0-0.2) k/uL Hypochromasia Sodium (137-145) mmol/L Potassium (3.5-5.1) mmol/L Chloride (98-107) mmol/L Carbon Dioxide (22-30) mmol/L Anion Gap mmol/L BUN (7-17) mg/dL Creatinine (0.52-1.04) mg/dL Est GFR (CKD-EPI)AfAm (>60 ml/min/1.73 sqM) Est GFR (CKD-EPI)NonAf (>60 ml/min/1.73 sqM) Glucose (74-99) mg/dL Plasma Lactic Acid Phi 1.3 (0.7-2.0) mmol/L Calcium (8.4-10.2) mg/dL Total Bilirubin (0.2-1.3) mg/dL AST (14-36) U/L ALT (4-34) U/L Alkaline Phosphatase (38-126) U/L Creatine Kinase (30-135) U/L Total Protein (6.3-8.2) g/dL Albumin (3.5-5.0) g/dL Amylase (30-110) U/L Lipase (23-300) U/L Urine Color Urine Appearance (Clear) Urine pH (5.0-8.0) Ur Specific [place] (1.001-1.035) Urine Protein (Negative) Urine Glucose (UA) (Negative) Urine Ketones (Negative) Urine Blood (Negative) Urine Nitrite (Negative) Urine Bilirubin (Negative) Urine Urobilinogen (<2.0) mg/dL Ur Leukocyte Esterase (Negative) Urine WBC (0-5) /hpf Ur Squamous Epith Cells (0-4) /hpf Amorphous Sediment (None) /hpf Urine Bacteria (None) /hpf Urine Mucus (None) /hpf Disposition Clinical Impression: Kidney stone on left side Disposition: HOME SELF-CARE Condition: Good Instructions (If sedation given, give patient instructions): Kidney Stones (ED) Is patient prescribed a controlled substance at d/c from ED?: No Referrals: Giovanni Hanks MD [Primary Care Provider] - 1-2 days
[2021-02-18 06:21] LABS: Basophils % (A) 1 %; Eosinophils # (A) 0.1 k/uL (0-0.7); Eosinophils % (A) 2 %; HCT 32.9 % (34.0-46.0); HGB 10.7 gm/dL (11.4-16.0); Hypochromasia Slight; Lymphocytes # (A) 1.6 k/uL (1.0-4.8); Lymphocytes % (A) 22 %; MCH 26.8 pg (25.0-35.0); MCHC 32.4 g/dL (31.0-37.0); MCV 82.6 fL (80.0-100.0); Mean Platelet Volume 7.9; Monocytes # (A) 0.4 k/uL (0-1.0); Monocytes % (A) 6 %; Neutrophils # (A) 4.6 k/uL (1.3-7.7); Neutrophils % (A) 67 %; Platelet Count 142 k/uL (150-450); RBC 3.98 m/uL (3.80-5.40); WBC 6.9 k/uL (3.8-10.6)
[2021-02-18 06:25] LABS: Amorphous Sediment,Urine Rare /hpf; Appearance,Urine Clear (Clear); Bacteria,Urine Moderate /hpf; Bilirubin,Urine Negative (Negative); Blood,Urine Negative (Negative); Color,Urine Light Yellow; Glucose,Urine (UA) 4+ (Negative); Ketones,Urine Negative (Negative); Leukocyte Esterase,Urine Moderate (Negative); Mucus,Urine Rare /hpf; Nitrite,Urine Negative (Negative); PH, Urine 6.5 (5.0-8.0); Protein,Urine Negative (Negative); Specific Gravity,Urine 1.015 (1.001-1.035); Squamous Epithelial Cell,Urine 4 /hpf (0-4); Urobilinogen,Urine <2.0 mg/dL (<2.0); WBC,Urine 26 /hpf (0-5)
[2021-02-18 06:30] LABS: ALT 19 U/L (4-34); AST 35 U/L (14-36); African American GFR (CKD) >90 (>60 ml/min/1.73 sqM); Alkaline Phosphatase 138 U/L (38-126); Amylase 54 U/L (30-110); Anion Gap 9 mmol/L; Blood Urea Nitrogen 19 mg/dL (7-17); Calcium 9.7 mg/dL (8.4-10.2); Carbon Dioxide 26 mmol/L (22-30); Chloride 99 mmol/L (98-107); Creatine Kinase 64 U/L (30-135); Glucose 355 mg/dL (74-99); Lipase 180 U/L (23-300); Non-African American GFR(CKD) 84 (>60 ml/min/1.73 sqM); Potassium 5.1 mmol/L (3.5-5.1); Sodium 134 mmol/L (137-145); Total Bilirubin 0.5 mg/dL (0.2-1.3); Total Protein 7.8 g/dL (6.3-8.2)
--- NOTE | 2021-02-18 06:45 | CT ---
EXAMINATION TYPE: CT abdomen pelvis wo con DATE OF EXAM: 02/18/2021 HISTORY: Abdominal pain. Right flank pain this morning. CT DLP: 634.8 mGycm. Automated Exposure Control for Dose Reduction was Utilized. TECHNIQUE: CT scan of the abdomen and pelvis is performed without oral or IV contrast. COMPARISON: CT abdomen and pelvis November 26, 2020 FINDINGS: Within the limitations of a non-contrast study, the following observations are made. LUNG BASES: Overall mosaic appearance to lung bases. Findings could reflect areas of edema and/or les s likely atypical infiltrates. LIVER/GB: Mild hepatomegaly with lobulated contour to the liver consistent with cirrhosis redemonstra fabrice. Cholecystectomy clips are demonstrated. Common bile duct at 12 mm unchanged from prior consisten t with mild extra hepatic biliary dilatation. No significant intrahepatic biliary dilatation noted. PANCREAS: No significant abnormality is seen. SPLEEN: Mild splenomegaly of 14.3 cm long axis axial image 31. ADRENALS: Slight thickening to left adrenal gland. KIDNEYS: There is a 5 mm nonobstructing left renal calculus lower Pole level coronal image 62 redemon strated and stable. No hydronephrosis or obstructing ureteral calculi bilaterally. BOWEL: Diverticula in the left and sigmoid colon. No CT evidence for acute diverticulitis. Perigastri c varices redemonstrated. No suspicious bowel dilatation. GENITAL ORGANS: Uterus surgically absent. Additional scattered pelvic phleboliths. Tiny free fluid in pelvis felt present versus retained ovaries. LYMPH NODES: No greater than 1cm abdominal or pelvic lymph nodes are appreciated. OSSEOUS STRUCTURES: Grade 1 anterolisthesis L4 on L5. [id number] disc space narrowing at this l evel. Spinal stimulator device mid to lower thoracic spinal canal posteriorly. Multilevel facet arthr opathy mid to lower lumbar spine OTHER: Tiny fat-containing umbilical hernia. Surgical clip right posterior gluteal region axial image 90 redemonstrated IMPRESSION: Stable nonobstructing 5 mm lower pole left renal calculus. No hydronephrosis or obstructi ng ureteral calculi. Cirrhosis with evidence of underlying portal venous hypertension redemonstrated. No significant new ascites. No new or acute findings are evident.
[2021-02-18 07:20] VITALS: BP 133/83; PULSE 71; RESP 18; TEMP 97.7
== END 2021-02-18 07:17 | disposition home or self-care (01) ==
LOC: EC 05:34
DX: N20.0 Calculus of kidney (principal); I11.0 Hypertensive heart disease with heart failure; I50.9 Heart failure, unspecified; E11.9 Type 2 diabetes mellitus without complications; K21.9 Gastro-esophageal reflux disease without esophagitis; F17.200 Nicotine dependence, unspecified, uncomplicated; Z79.4 Long term (current) use of insulin; Z88.6 Allergy status to analgesic agent; Z90.710 Acquired absence of both cervix and uterus; Z90.89 Acquired absence of other organs
CPT/HCPCS: 99284; 96374; 96375 ×2; 96361; 36415; 80053; 82150; 82550; 83605; 83690; 85025; 81001; 87086; 74176; J2270; J2405; J1170

== ENCOUNTER 2021-02-19 12:12 | Emergency (ER) | payer MEDICARE, OTHER ==
[2021-02-19 12:48] VITALS: TEMP 98
[2021-02-19 13:20] LABS: Appearance,Urine Clear (Clear); Bilirubin,Urine Negative (Negative); Blood,Urine Negative (Negative); Color,Urine Light Yellow; Glucose,Urine (UA) 4+ (Negative); Ketones,Urine Negative (Negative); Leukocyte Esterase,Urine Small (Negative); Nitrite,Urine Negative (Negative); PH, Urine 5.5 (5.0-8.0); Protein,Urine Negative (Negative); RBC,Urine <1 /hpf (0-5); Specific Gravity,Urine 1.014 (1.001-1.035); Squamous Epithelial Cell,Urine 1 /hpf (0-4); Urobilinogen,Urine <2.0 mg/dL (<2.0); WBC,Urine 11 /hpf (0-5)
[2021-02-19] MEDS ORDERED: MORPHINE SULFATE 4 MG/ML SYRINGE IV STA (13:45)
[2021-02-19] MEDS ORDERED: SODIUM CHLORIDE 0.9% 500 ML 500 ML IV STA (13:45)
[2021-02-19] MEDS ORDERED: KETOROLAC 15 MG/ML 1 ML VIAL IVP STA (13:45)
[2021-02-19 14:24] LABS: ALT 18 U/L (4-34); AST 35 U/L (14-36); African American GFR (CKD) >90 (>60 ml/min/1.73 sqM); Albumin 3.8 g/dL (3.5-5.0); Alkaline Phosphatase 131 U/L (38-126); Amylase 59 U/L (30-110); Anion Gap 9 mmol/L; Blood Urea Nitrogen 19 mg/dL (7-17); Calcium 9.6 mg/dL (8.4-10.2); Carbon Dioxide 21 mmol/L (22-30); Chloride 105 mmol/L (98-107); Glucose 295 mg/dL (74-99); Lipase 175 U/L (23-300); Non-African American GFR(CKD) 85 (>60 ml/min/1.73 sqM); Potassium 4.9 mmol/L (3.5-5.1); Sodium 135 mmol/L (137-145); Total Bilirubin 0.5 mg/dL (0.2-1.3); Total Protein 7.5 g/dL (6.3-8.2)
[2021-02-19 14:26] LABS: Basophils % (A) 1 %; Eosinophils # (A) 0.1 k/uL (0-0.7); Eosinophils % (A) 2 %; HCT 32.5 % (34.0-46.0); HGB 10.4 gm/dL (11.4-16.0); Hypochromasia Slight; Lymphocytes # (A) 1.4 k/uL (1.0-4.8); Lymphocytes % (A) 22 %; MCH 26.6 pg (25.0-35.0); MCV 83.2 fL (80.0-100.0); Mean Platelet Volume 8.9; Monocytes # (A) 0.4 k/uL (0-1.0); Monocytes % (A) 6 %; Neutrophils # (A) 4.4 k/uL (1.3-7.7); Neutrophils % (A) 69 %; Platelet Count 143 k/uL (150-450); RDW 15.1 % (11.5-15.5); WBC 6.4 k/uL (3.8-10.6)
--- NOTE | 2021-02-19 15:13 | ED ---
Abdominal Pain HPI - General Chief Complaint: Abdominal Pain Stated Complaint: kidney stones-revisit Time Seen by Provider: 02/19/21 13:45 Source: patient Mode of arrival: ambulatory Limitations: no limitations - History of Present Illness Initial Comments: Patient is a 75-year-old female presenting to emergency Department for recheck of right flank pain. Patient was seen and evaluated here yesterday for same complaint. She states the pain has returned and she is having some nausea as well. She states she does have history of kidney stones and this does feel similar. CT yesterday did not show any right-sided stones. Her labs were also normal yesterday. Patient denies any fevers or chills, no dysuria, no abdominal pain. She denies any chest pain or shortness of breath. She has no further complaints at this time. - Related Data Home Medications Medication Instructions Recorded Confirmed HYDROcodone/APAP 10-325MG [Gilberts 1 tab PO Q6H PRN 05/14/17 03/31/19 10-325] Insulin Detemir (Levemir) [Levemir] 70 unit SQ BID 05/14/17 03/31/19 sitaGLIPtin PHOS/metFORMIN HCL 1 tab PO BID 05/14/17 03/31/19 [Janumet Xr 50-1,000 mg Tablet] Atorvastatin [Lipitor] 40 mg PO DAILY 01/11/18 03/31/19 Pramipexole Di-HCl [Mirapex] 1 mg PO BID 01/11/18 03/31/19 Esomeprazole Magnesium [NexIUM] 40 mg PO DAILY 02/21/18 03/31/19 Insulin Glulisine [Apidra] See Protocol SQ AC-TID 08/30/18 03/31/19 lisinopriL [Zestril] 5 mg PO DAILY 03/28/19 03/31/19 Previous Rx's Medication Instructions Recorded Cephalexin [Keflex] 500 mg PO Q12HR 7 Days #14 cap 03/29/19 Ondansetron [Zofran] 4 mg PO Q8HR PRN #8 tab 08/19/19 HYDROcodone/APAP 10-325MG [Gilberts 1 tab PO Q6HR PRN 3 Days #12 tab 02/19/21 10-325] Ketorolac [Toradol] 10 mg PO Q8HR #15 tab 02/19/21 Allergies Allergy/AdvReac Type Severity Reaction Status Date / Time pentazocine [From Talmary] Allergy Hallucinati Verified 02/19/21 12:48 ons Review of Systems ROS Statement: Those systems with pertinent positive or pertinent negative responses have been documented in the HPI. ROS Other: All systems not noted in ROS Statement are negative. Past Medical History Past Medical History: Heart Failure, Diabetes Mellitus, GERD/Reflux, GI Bleed, Hypertension, Liver Disease Additional Past Medical History / Comment(s): anemia and has had several iron infusions/blood transfusions,past bleeding gastric ulcers, rectal bleed, nonalcoholic liver cirrhosis, chronic diarrhea past 3 years ,RLS, low back/L hip pain, clausterphobia. History of Any Multi-Drug Resistant Organisms: None Reported Past Surgical History: Hysterectomy, Orthopedic Surgery, Tonsillectomy Additional Past Surgical History / Comment(s): Hemorrhagic cyst removed from right ureter; Right foot surgery d/t crush injury; Left hip pain stimulator implanted, Steel iris in right arm, EGDs/colonoscopies, bone marrow aspirations, low back and cervical injections for pain, bilateral cataract removals with lens implants. Past Anesthesia/Blood Transfusion Reactions: No Reported Reaction, Motion Sickness Additional Past Anesthesia/Blood Transfusion Reaction / Comment(s): Pt has had several blood transfusions without reaction. Pt has clausterphobia. Past Psychological History: No Psychological Hx Reported Smoking Status: Current every day smoker, Former smoker Past Alcohol Use History: None Reported Past Drug Use History: None Reported - Past Family History Father Additional Family Medical History / Comment(s): Father was an alcoholic but was sober for the last 9 yrs of his life. Mother Family Medical History: Coronary Artery Disease (CAD), Diabetes Mellitus Additional Family Medical History / Comment(s): Low hgb. She during a colonoscopy. She had 4 vessel CABG General Exam - General Exam Comments Initial Comments: GENERAL: Patient is well-developed and well-nourished. Patient is nontoxic and in mild distress. HEAD: Atraumatic, normocephalic. EYES: Pupils equal round and reactive to light, extraocular movements intact, sclera anicteric, conjunctiva are normal. Eyelids were unremarkable. ENT: Nares patent, oropharynx clear without exudates. Moist mucous membranes. NECK: Normal range of motion, supple without lymphadenopathy or JVD. LUNGS: Unlabored respirations. Breath sounds clear to auscultation bilaterally and equal. No wheezes rales or rhonchi. HEART: Regular rate and rhythm without murmurs, rubs or gallops. ABDOMEN: Soft, nontender, normoactive bowel sounds. No guarding, no rebound. No masses appreciated. Right flank pain on palpation : Deferred MUSCULOSKELETAL: Normal extremities with adequate strength and normal range of motion, no pitting or edema. No clubbing or cyanosis. NEUROLOGICAL: Patient is alert and oriented x 3. Motor and sensory are also intact. Cranial nerves II through XII grossly intact. Symmetrical smile. Normal speech, normal gait. PSYCH: Normal mood, normal affect. SKIN: Warm, Dry, normal turgor, no rashes or lesions noted. Limitations: no limitations Course Vital Signs 02/19/21 12:45 Temperature 98.0 F Pulse Rate 80 Respiratory 20 Rate Blood Pressure 135/84 O2 Sat by Pulse 98 Oximetry Medical Decision Making - Medical Decision Making Patient is a 75-year-old female here for right flank pain that started over the past 2 days. Patient was seen here yesterday and evaluated for same complaint. Her labs, urine, computed tomography scan were all within normal limits. There is no right-sided stone identified. Should no hematuria. We did recheck labs and urine today, again no signs of infection, no hematuria. Her glucose is elevated at 300, she is aware of this. She was given fluids, Toradol and morphine, she's been resting complaint does feel improvement. I discussed these findings with the patient. I discussed with her that this very well could be a small kidney stone that is not being picked up on ct, could also be back lumbar strain versus possible shingles. She has no rash to indicate shingles at this time. I did offer admission for observation for pain control versus going home. Patient does feel like she can manage at home. She does take Gilberts tens at home for chronic leg pain. She states she is about out of her normal prescription, I will give her for few more as well as some Toradol to try for pain management. She is agreeable to this plan of care. Return parameters were discussed with her and she verbalized understanding. Case discussed with Dr. Bryce massey. - Lab Data Result diagrams: 02/19/21 13:45 09/14/21 13:45 Lab Results 02/19/21 02/19/21 02/19/21 Range/Units 12:49 13:45 13:45 WBC 6.4 (3.8-10.6) k/uL RBC 3.90 (3.80-5.40) m/uL Hgb 10.4 L (11.4-16.0) gm/dL Hct 32.5 L (34.0-46.0) % MCV 83.2 (80.0-100.0) fL MCH 26.6 (25.0-35.0) pg MCHC 32.0 (31.0-37.0) g/dL RDW 15.1 (11.5-15.5) % Plt Count 143 L (150-450) k/uL MPV 8.9 Neutrophils % 69 % Lymphocytes % 22 % Monocytes % 6 % Eosinophils % 2 % Basophils % 1 % Neutrophils # 4.4 (1.3-7.7) k/uL Lymphocytes # 1.4 (1.0-4.8) k/uL Monocytes # 0.4 (0-1.0) k/uL Eosinophils # 0.1 (0-0.7) k/uL Basophils # 0.0 (0-0.2) k/uL Hypochromasia Slight Sodium 135 L (137-145) mmol/L Potassium 4.9 (3.5-5.1) mmol/L Chloride 105 (98-107) mmol/L Carbon Dioxide 21 L (22-30) mmol/L Anion Gap 9 mmol/L BUN 19 H (7-17) mg/dL Creatinine 0.71 (0.52-1.04) mg/dL Est GFR (CKD-EPI)AfAm >90 (>60 ml/min/1.73 sqM) Est GFR (CKD-EPI)NonAf 85 (>60 ml/min/1.73 sqM) Glucose 295 H (74-99) mg/dL Plasma Lactic Acid Phi (0.7-2.0) mmol/L Calcium 9.6 (8.4-10.2) mg/dL Total Bilirubin 0.5 (0.2-1.3) mg/dL AST 35 (14-36) U/L ALT 18 (4-34) U/L Alkaline Phosphatase 131 H (38-126) U/L Total Protein 7.5 (6.3-8.2) g/dL Albumin 3.8 (3.5-5.0) g/dL Amylase 59 (30-110) U/L Lipase 175 (23-300) U/L Urine Color Light Yellow Urine Appearance Clear (Clear) Urine pH 5.5 (5.0-8.0) Ur Specific [place] 1.014 (1.001-1.035) Urine Protein Negative (Negative) Urine Glucose (UA) 4+ H (Negative) Urine Ketones Negative (Negative) Urine Blood Negative (Negative) Urine Nitrite Negative (Negative) Urine Bilirubin Negative (Negative) Urine Urobilinogen <2.0 (<2.0) mg/dL Ur Leukocyte Esterase Small H (Negative) Urine RBC <1 (0-5) /hpf Urine WBC 11 H (0-5) /hpf Ur Squamous Epith Cells 1 (0-4) /hpf 02/19/21 Range/Units 13:45 WBC (3.8-10.6) k/uL RBC (3.80-5.40) m/uL Hgb (11.4-16.0) gm/dL Hct (34.0-46.0) % MCV (80.0-100.0) fL MCH (25.0-35.0) pg MCHC (31.0-37.0) g/dL RDW (11.5-15.5) % Plt Count (150-450) k/uL MPV Neutrophils % % Lymphocytes % % Monocytes % % Eosinophils % % Basophils % % Neutrophils # (1.3-7.7) k/uL Lymphocytes # (1.0-4.8) k/uL Monocytes # (0-1.0) k/uL Eosinophils # (0-0.7) k/uL Basophils # (0-0.2) k/uL Hypochromasia Sodium (137-145) mmol/L Potassium (3.5-5.1) mmol/L Chloride (98-107) mmol/L Carbon Dioxide (22-30) mmol/L Anion Gap mmol/L BUN (7-17) mg/dL Creatinine (0.52-1.04) mg/dL Est GFR (CKD-EPI)AfAm (>60 ml/min/1.73 sqM) Est GFR (CKD-EPI)NonAf (>60 ml/min/1.73 sqM) Glucose (74-99) mg/dL Plasma Lactic Acid Phi 1.4 (0.7-2.0) mmol/L Calcium (8.4-10.2) mg/dL Total Bilirubin (0.2-1.3) mg/dL AST (14-36) U/L ALT (4-34) U/L Alkaline Phosphatase (38-126) U/L Total Protein (6.3-8.2) g/dL Albumin (3.5-5.0) g/dL Amylase (30-110) U/L Lipase (23-300) U/L Urine Color Urine Appearance (Clear) Urine pH (5.0-8.0) Ur Specific [place] (1.001-1.035) Urine Protein (Negative) Urine Glucose (UA) (Negative) Urine Ketones (Negative) Urine Blood (Negative) Urine Nitrite (Negative) Urine Bilirubin (Negative) Urine Urobilinogen (<2.0) mg/dL Ur Leukocyte Esterase (Negative) Urine RBC (0-5) /hpf Urine WBC (0-5) /hpf Ur Squamous Epith Cells (0-4) /hpf Disposition Clinical Impression: Right flank pain Disposition: HOME SELF-CARE Condition: Stable Instructions (If sedation given, give patient instructions): Flank Pain (ED) Additional Instructions: Please return to the Emergency Department if symptoms worsen or any other concerns. You may alternate Gilberts with Toradol for pain relief. I recommended ice and/or heat to the area as well. Observe for any rashes that may be starting. Please follow-up with your primary care physician. Prescriptions: HYDROcodone/APAP 10-325MG [Gilberts 10-325] 1 tab PO Q6HR PRN 3 Days #12 tab PRN Reason: Pain Ketorolac [Toradol] 10 mg PO Q8HR #15 tab Is patient prescribed a controlled substance at d/c from ED?: Yes When asked, does pt state using other controlled substances?: No If prescribed controlled substance>3 days was MAPS reviewed?: Prescribed <3 Days If opioid is for acute pain is fill amount 7 days or less?: Yes If Rx opioid, was Start Talking consent form obtained?: Yes Referrals: Giovanni Hanks MD [Primary Care Provider] - 1-2 days Time of Disposition: 15:12
[2021-02-19 15:14] VITALS: BP 132/61; PULSE 68; RESP 16
== END 2021-02-19 15:21 | disposition home or self-care (01) ==
LOC: EC 12:12
DX: R10.9 Unspecified abdominal pain (principal); R11.0 Nausea; I11.0 Hypertensive heart disease with heart failure; I50.9 Heart failure, unspecified; E11.36 Type 2 diabetes mellitus with diabetic cataract; G25.81 Restless legs syndrome; K21.9 Gastro-esophageal reflux disease without esophagitis; F17.200 Nicotine dependence, unspecified, uncomplicated; Z79.1 Long term (current) use of non-steroidal anti-inflammatories (NSAID); Z79.4 Long term (current) use of insulin; Z87.442 Personal history of urinary calculi
CPT/HCPCS: 36415; 80053; 82150; 83605; 83690; 85025; 81001; 87086; 99284; 96374; 96375; 96361; J2270; J1885; 87077; 87186

== ENCOUNTER 2021-02-22 21:48 | Observation (INO) | payer MEDICARE, OTHER ==
[2021-02-22] MEDS ORDERED: MORPHINE SULFATE 4 MG/ML SYRINGE IV STA (22:35)
[2021-02-22] MEDS ORDERED: SODIUM CHLORIDE 0.9% 1,000 ML IV STA (22:35)
--- NOTE | 2021-02-23 00:04 | ED ---
Recheck HPI - General Chief Complaint: Back Pain/Injury Stated Complaint: Back Pain Time Seen by Provider: 02/22/21 22:27 Source: patient Mode of arrival: ambulatory - Related Data Home Medications Medication Instructions Recorded Confirmed HYDROcodone/APAP 10-325MG [[place]rew 1 tab PO Q6H PRN 05/14/17 03/31/19 10-325] Insulin Detemir (Levemir) [Levemir] 70 unit SQ BID 05/14/17 03/31/19 sitaGLIPtin PHOS/metFORMIN HCL 1 tab PO BID 05/14/17 03/31/19 [Janumet Xr 50-1,000 mg Tablet] Atorvastatin [Lipitor] 40 mg PO DAILY 01/11/18 03/31/19 Pramipexole Di-HCl [Mirapex] 1 mg PO BID 01/11/18 03/31/19 Esomeprazole Magnesium [NexIUM] 40 mg PO DAILY 02/21/18 03/31/19 Insulin Glulisine [Apidra] See Protocol SQ AC-TID 08/30/18 03/31/19 lisinopriL [Zestril] 5 mg PO DAILY 03/28/19 03/31/19 Previous Rx's Medication Instructions Recorded Cephalexin [Keflex] 500 mg PO Q12HR 7 Days #14 cap 03/29/19 Ondansetron [Zofran] 4 mg PO Q8HR PRN #8 tab 08/19/19 HYDROcodone/APAP 10-325MG [[place]rew 1 tab PO Q6HR PRN 3 Days #12 tab 02/19/21 10-325] Ketorolac [Toradol] 10 mg PO Q8HR #15 tab 02/19/21 Allergies Allergy/AdvReac Type Severity Reaction Status Date / Time pentazocine [From Talwin] Allergy Hallucinati Verified 02/22/21 22:24 ons Review of Systems ROS Statement: Those systems with pertinent positive or pertinent negative responses have been documented in the HPI. ROS Other: All systems not noted in ROS Statement are negative. Past Medical History Past Medical History: Heart Failure, Diabetes Mellitus, GERD/Reflux, GI Bleed, Hypertension, Liver Disease Additional Past Medical History / Comment(s): anemia and has had several iron infusions/blood transfusions,past bleeding gastric ulcers, rectal bleed, nonalcoholic liver cirrhosis, chronic diarrhea past 3 years ,RLS, low back/L hip pain, clausterphobia. History of Any Multi-Drug Resistant Organisms: None Reported Past Surgical History: Hysterectomy, Orthopedic Surgery, Tonsillectomy Additional Past Surgical History / Comment(s): Hemorrhagic cyst removed from right ureter; Right foot surgery d/t crush injury; Left hip pain stimulator implanted, Steel iris in right arm, EGDs/colonoscopies, bone marrow aspirations, low back and cervical injections for pain, bilateral cataract removals with lens implants. Past Anesthesia/Blood Transfusion Reactions: No Reported Reaction, Motion Sickness Additional Past Anesthesia/Blood Transfusion Reaction / Comment(s): Pt has had several blood transfusions without reaction. Pt has clausterphobia. Past Psychological History: No Psychological Hx Reported Smoking Status: Current every day smoker, Former smoker Past Alcohol Use History: None Reported Past Drug Use History: None Reported - Past Family History Father Additional Family Medical History / Comment(s): Father was an alcoholic but was sober for the last 9 yrs of his life. Mother Family Medical History: Coronary Artery Disease (CAD), Diabetes Mellitus Additional Family Medical History / Comment(s): Low hgb. She during a colonoscopy. She had 4 vessel CABG Course Vital Signs 02/22/21 22:20 Temperature 97.9 F Pulse Rate 74 Respiratory 19 Rate Blood Pressure 126/56 O2 Sat by Pulse 99 Oximetry Medical Decision Making - Lab Data Result diagrams: 02/22/21 23:15 Lab Results 02/22/21 Range/Units 23:15 Sodium 135 L (137-145) mmol/L Potassium 4.8 (3.5-5.1) mmol/L Chloride 104 (98-107) mmol/L Carbon Dioxide 22 (22-30) mmol/L Anion Gap 9 mmol/L BUN 21 H (7-17) mg/dL Creatinine 0.78 (0.52-1.04) mg/dL Est GFR (CKD-EPI)AfAm 88 (>60 ml/min/1.73 sqM) Est GFR (CKD-EPI)NonAf 76 (>60 ml/min/1.73 sqM) Glucose 302 H (74-99) mg/dL Calcium 9.8 (8.4-10.2) mg/dL Phosphorus 4.2 (2.5-4.5) mg/dL Magnesium 1.7 (1.6-2.3) mg/dL Total Bilirubin 0.5 (0.2-1.3) mg/dL AST 35 (14-36) U/L ALT 20 (4-34) U/L Alkaline Phosphatase 120 (38-126) U/L Total Protein 7.4 (6.3-8.2) g/dL Albumin 3.7 (3.5-5.0) g/dL Disposition Clinical Impression: Thoracic back pain, Mid back pain, Intractable pain Disposition: ADMITTED IP TO THIS [facility] Condition: Fair Is patient prescribed a controlled substance at d/c from ED?: No Referrals: Giovanni Hanks MD [Primary Care Provider] - 1-2 days
[2021-02-23 00:28] LABS: Albumin 3.7 g/dL (3.5-5.0); Calcium 9.8 mg/dL (8.4-10.2); Magnesium 1.7 mg/dL (1.6-2.3); Phosphorus 4.2 mg/dL (2.5-4.5); Potassium 4.8 mmol/L (3.5-5.1); Total Bilirubin 0.5 mg/dL (0.2-1.3); Total Protein 7.4 g/dL (6.3-8.2)
[2021-02-23] MEDS ORDERED: NALOXONE 0.4 MG/ML 1 ML VIAL IV PRN (00:51)
[2021-02-23] MEDS ORDERED: LORazepam 2 MG/ML INJ IV PRN (00:51)
[2021-02-23] MEDS ORDERED: MORPHINE SULFATE 4 MG/ML SYRINGE IV PRN (00:51)
[2021-02-23] MEDS ORDERED: ONDANSETRON 4 MG/2 ML VIAL IVP PRN (00:51)
[2021-02-23 01:00] LABS: Basophils % (A) 1 %; Eosinophils # (A) 0.1 k/uL (0-0.7); Eosinophils % (A) 2 %; HCT 27.4 % (34.0-46.0); HGB 9.4 gm/dL (11.4-16.0); Hypochromasia Moderate; Lymphocytes # (A) 1.2 k/uL (1.0-4.8); Lymphocytes % (A) 26 %; MCH 28.8 pg (25.0-35.0); MCHC 34.2 g/dL (31.0-37.0); Mean Platelet Volume 9.2; Monocytes # (A) 0.3 k/uL (0-1.0); Monocytes % (A) 7 %; Neutrophils # (A) 2.9 k/uL (1.3-7.7); Neutrophils % (A) 62 %; Platelet Count 110 k/uL (150-450); RBC 3.26 m/uL (3.80-5.40); RDW 14.9 % (11.5-15.5); WBC 4.7 k/uL (3.8-10.6)
--- NOTE | 2021-02-23 01:05 | CT ---
EXAMINATION TYPE: CT abdomen pelvis w con DATE OF EXAM: 02/23/2021 COMPARISON: 02/18/2021 HISTORY: back pain. Sx hx- Total Hyst., Hemorrhagic cyst removed from Rt Ureter, Pain stimulator. p rior on PACS CT DLP: 1060.6 mGycm Automated exposure control for dose reduction was used. CONTRAST: Performed with IV Contrast, patient injected with 100ml mL of Isovue 300. Lung bases are clear of infiltrate. There is no pleural effusion. Heart size is normal. There is no p ericardial effusion. There are clips from cholecystectomy. Liver is intact. Spleen is intact. The sto mach is intact. There is no evidence of pancreatic mass. A few varicose veins at the splenic hilum. There are varicose veins at the gastroesophageal junction. There is no adrenal mass. Kidneys show satisfactory contrast opacification. There is 4 mm calculus lo wer pole left kidney. There is no hydronephrosis. There is no retroperitoneal adenopathy. Ureters are not dilated. Delayed images show normal renal excretion. Bladder distends smoothly. There is no ingu inal hernia. There is no free fluid in the pelvis. There are multiple sigmoid diverticula. I see no s ign of diverticulitis. Cecum is low in the pelvis. Appendix is not seen. There is no sign of thickene d appendix. There is no mesenteric edema. There is no ascites or free air. There is no bowel obstruction. The lumbar vertebra have fairly normal alignment. There is a mild degenerative first-degree L4-5 spon dylolisthesis. There is no lumbar compression fracture. Bony pelvis is intact. The hip joints are int act. IMPRESSION: No acute abnormality of the abdomen pelvis. There is evidence for some portal venous hypertension. No change compared to recent exam.
[2021-02-23 01:26] LABS: Appearance,Urine Clear (Clear); Bilirubin,Urine Negative (Negative); Blood,Urine Negative (Negative); Budding Yeast,Urine Rare /hpf; Color,Urine Yellow; Glucose,Urine (UA) 4+ (Negative); Ketones,Urine Negative (Negative); Leukocyte Esterase,Urine Small (Negative); Mucus,Urine Rare /hpf; Nitrite,Urine Negative (Negative); PH, Urine 5.5 (5.0-8.0); Protein,Urine Negative (Negative); RBC,Urine 1 /hpf (0-5); Specific Gravity,Urine 1.023 (1.001-1.035); Squamous Epithelial Cell,Urine 3 /hpf (0-4); Urobilinogen,Urine <2.0 mg/dL (<2.0); WBC,Urine 13 /hpf (0-5)
[2021-02-23] MEDS: SODIUM CHLORIDE 0.9% 1,000 ML IV SCH ×3 (02:33→15:59)
[2021-02-23] MEDS: HYDROmorphone 1 MG/ML 1 ML SYRINGE IVP PRN ×2 (03:37→08:01)
[2021-02-23] MEDS ORDERED: LIDOCAINE 5% PATCH TOPICAL PRN (09:11)
--- NOTE | 2021-02-23 09:11 | P.HPIM ---
<Juan Miguel Clemente - Last Filed: 02/23/21 14:41> History of Present Illness H&P Date: 02/23/21 History of Presenting Illness: Patient is a very pleasant 75-year-old female with a past medical history LOPEZ, insulin-dependent diabetes mellitus, GERD, hypertension, and chronic back pain. Patient presented to the emergency department with a chief complaint of back pain. In the emergency department a CT abdomen and pelvis was completed negative for acute process revealing unchanged portal venous hypertension. Labs drawn consistent with patient's chronic normocytic normochromic anemia with hemoglobin of 9.4 with baseline of 10.0, hyperglycemia with glucose of 302, and elevated BUN of 21. Urinalysis completed negative for blood or infection. Covid 19 PCR negative. Patient seen and fully evaluated at the bedside she reports history of previous cervical, thoracic, and lumbar spinal issues. Patient states she was previously receiving spinal epidural injections up until 2013 when she had a spinal stimulator implanted in which she reports worked only for approximately 2 months and it was turned off later due to complications and states due to these complications they have been unable to remove. Patient states that she was seeing her orthospine specialist when she lived in [place] but has not been evaluated by an orthospine physician since moving to [place] in 2017. Patient reports pain shooting upwards in her back. Patient reports pain begins at the top of her hip bone and radiates upwards her back. Patient denies having any neurological deficits including numbness/tingling/weakness of her extremities or experiencing any involuntary loss of bowel or bladder. Also denies having any other complaints including headache, lightheadedness, dizziness, chest pain, palpitations, shortness of breath, abdominal pain, nausea, vomiting, changes in her difficulties with urinary function including hematuria, dysuria, frequency, or urgency. Patient admitted under our services. Review of systems: Pertinent positives and negatives as discussed in HPI, a complete review of systems was performed and all other systems are negative. Physical exam: Vital signs reviewed and stable. General: Nontoxic, no distress and appears stated age. Derm: Skin warm and dry, normal coloration for ethnicity. Head: Atraumatic, normocephalic and symmetric. Eyes: EOMs intact, no lid lag, and anicteric sclera Mouth: no lip lesions, mucus membranes moist Cardiovascular: regular rate and rhythm with normal S1S2, no murmur, positive posterior tibial pulses bilaterally, and cap refill < 2 seconds. Lungs: Respirations even, regular, and unlabored on room air. Lungs CTA bilaterally, no rhonchi, no rales, no wheezing, and no accessory muscle usage. Abdominal: soft, nontender to palpation, no guarding, no appreciable organomegaly Musculoskeletal/Ext: ROM intact. No gross muscle atrophy, no edema, no contractures. Tenderness reported to lateral sides of back. Patient reports pain begins at the top of her hip bones and shoots upwards both sides of her back. Neuro: Speech clear, face symmetrical and CN II-XII grossly intact with no noted focal neuro deficits Psych: Alert and oriented to person, place, time, and situation. Appropriate and pleasant affect. Assessment and Plan of Care: Acute exacerbation of chronic Back pain -X-ray thoracic and lumbar spine -Symptomatic care and pain management -Fall precautions Insulin-dependent diabetes mellitus type 2 -Patient placed on glycemic protocol with plans to continue daily medication regimen with Levemir 76 units twice daily along with NovoLog sliding scale. Hypertension -Monitor vital signs and continue daily medication regimen with lisinopril 10 mg daily. GERD -Continue daily medication regimen with Protonix 40 mg daily. The patient is admitted with an anticipated less than 2 midnight stay for evaluation of acute exacerbation of chronic lower back pain. CODE STATUS: Full code DVT prophylaxis: SCDs Discussed with: Patient and RN Anticipated discharge date: 1-[address]: home A total of 45 minutes was spent on the care of this complex patient more than 50% of the time was spent in counseling and care coordination. Active Medications Generic Name Dose Route Start Last Admin Trade Name Freq PRN Reason Stop Dose Admin Hydrocodone Bitart/Acetaminophen 1 each 02/23/21 09:11 02/23/21 12:34 Hydrocodone/Apap 10-325mg 1 Each Tab PO 1 each Q6HR PRN Administration Moderate Pain Gabapentin 600 mg 02/23/21 21:00 Gabapentin 300 Mg Cap PO HS GERTRUDIS Sodium Chloride 1,000 mls @ 130 mls/hr 02/23/21 01:00 02/23/21 08:05 Saline 0.9% IV 130 mls/hr .[id number] GERTRUDIS Administration Insulin Aspart 0 unit 02/23/21 12:30 02/23/21 12:37 Insulin Aspart (Novolog) 100 Unit/Ml Vial SQ 6 unit ACHS GERTRUDIS Administration Protocol Insulin Detemir 76 unit 02/23/21 21:00 Insulin Detemir (Levemir) 100 Unit/Ml Syr SQ BID@0700,2100 [facility] Ketorolac Tromethamine 15 mg 02/23/21 10:23 Ketorolac 15 Mg/Ml 1 Ml Vial IVP 02/26/21 10:23 Q6HR PRN Breakthrough Pain Lidocaine 1 patch 02/23/21 09:11 Lidocaine 5% Patch TOPICAL DAILY PRN Pain Protocol Lisinopril 10 mg 02/24/21 09:00 Lisinopril 10 Mg Tab PO DAILY [facility] Naloxone HCl 0.2 mg 02/23/21 00:51 Naloxone 0.4 Mg/Ml 1 Ml Vial IV Q2M PRN Opioid Reversal Ondansetron HCl 4 mg 02/23/21 00:51 Ondansetron 4 Mg/2 Ml Vial IVP Q8HR PRN Nausea And Vomiting Pantoprazole Sodium 40 mg 02/24/21 09:00 Pantoprazole 40 Mg Tablet PO DAILY [facility] Past Medical History Past Medical History: Heart Failure, Diabetes Mellitus, GERD/Reflux, GI Bleed, Hypertension, Liver Disease, Osteoarthritis (OA) Additional Past Medical History / Comment(s): anemia and has had several iron infusions/blood transfusions,past bleeding gastric ulcers, rectal bleed, nonalcoholic liver cirrhosis, chronic diarrhea past 3 years ,RLS, low back/L hip pain, clausterphobia. History of Any Multi-Drug Resistant Organisms: None Reported Past Surgical History: Hysterectomy, Orthopedic Surgery, Tonsillectomy Additional Past Surgical History / Comment(s): Hemorrhagic cyst removed from right ureter; Right foot surgery d/t crush injury; Left hip pain stimulator implanted, Steel iris in right arm, EGDs/colonoscopies, bone marrow aspirations, low back and cervical injections for pain, bilateral cataract removals with lens implants. Past Anesthesia/Blood Transfusion Reactions: No Reported Reaction, Motion Si ckness Additional Past Anesthesia/Blood Transfusion Reaction / Comment(s): Pt has had several blood transfusions without reaction. Pt has clausterphobia. Past Psychological History: No Psychological Hx Reported Additional Psychological History / Comment(s): Pt states she had severe depression when younger but learned how to make it stop. She resides with her spouse. She is independent. They moved back to [place] from [place] about 1 year ago. They originally were from [place] but had moved to [place] in 1973. She has clausterphobia Smoking Status: Current every day smoker, Former smoker Past Alcohol Use History: None Reported Additional Past Alcohol Use History / Comment(s): states she started smoking in 1969 and quit in 2009; but now currently smokes a pack a day starting about 12 months ago 2019. Past Drug Use History: None Reported - Past Family History Father Additional Family Medical History / Comment(s): Father was an alcoholic but was sober for the last 9 yrs of his life. Mother Family Medical History: Coronary Artery Disease (CAD), Diabetes Mellitus Additional Family Medical History / Comment(s): Low hgb. She during a colonoscopy. She had 4 vessel CABG Medications and Allergies Home Medications Medication Instructions Recorded Confirmed Type Insulin Detemir (Levemir) [Levemir] 76 unit SQ BID 05/14/17 02/23/21 History Esomeprazole Magnesium [NexIUM] 40 mg PO DAILY 02/21/18 02/23/21 History Insulin Glulisine [Apidra] See Protocol SQ AC-TID 08/30/18 02/23/21 History HYDROcodone/APAP 10-325MG [[place] 1 tab PO Q6HR PRN 3 Days #12 tab 02/19/21 02/23/21 Rx 10-325] [id number] 1 tab PO Q4HR PRN 02/23/21 02/23/21 History [Excedrin] Cephalexin [Keflex] 500 mg PO QID 02/23/21 02/23/21 History Fluconazole [Diflucan] 150 mg PO DIRECTED PRN 02/23/21 02/23/21 History Gabapentin 600 mg PO HS 02/23/21 02/23/21 History Ketorolac [Toradol] 10 mg PO Q8HR PRN 02/23/21 02/23/21 History Lidocaine 5% Patch [Lidoderm 5% 1 patch TOPICAL DAILY PRN 02/23/21 02/23/21 History Patch] lisinopriL [Zestril] 10 mg PO DAILY 02/23/21 02/23/21 History Allergies Allergy/AdvReac Type Severity Reaction Status Date / Time pentazocine [From Lashell] Allergy Hallucinati Verified 02/23/21 08:44 ons Physical Exam Vitals: Vital Signs Temp Pulse Pulse Resp BP BP Pulse Ox 02/23/21 07:17 98.3 F 75 16 174/75 99 02/23/21 04:15 97.8 F 67 17 154/75 96 02/23/21 03:43 98.1 F 71 16 150/65 96 02/23/21 02:37 73 16 131/59 98 02/22/21 22:20 97.9 F 74 19 126/56 99 Intake and Output 02/22/21 02/23/21 02/23/21 22:59 06:59 14:59 Intake Total 100 Balance 100 Intake: Oral 100 Other: Weight 74.843 kg 74.843 kg Results CBC & Chem 7: 02/23/21 00:24 02/22/21 23:15 Labs: Abnormal Lab Results - Last 24 Hours (Table) 02/22/21 02/23/21 02/23/21 Range/Units 23:15 00:24 00:24 RBC 3.26 L (3.80-5.40) m/uL Hgb 9.4 L (11.4-16.0) gm/dL Hct 27.4 L (34.0-46.0) % Plt Count 110 L (150-450) k/uL Sodium 135 L (137-145) mmol/L BUN 21 H (7-17) mg/dL Glucose 302 H (74-99) mg/dL Urine Glucose (UA) 4+ H (Negative) Ur Leukocyte Esterase Small H (Negative) Urine WBC 13 H (0-5) /hpf Urine Mucus Rare H (None) /hpf Urine Yeast (Budding) Rare H (None) /hpf Thrombosis Risk Factor Assmnt - Choose All That Apply Each Factor Represents 1 point: Obesity (BMI >25) Each Risk Factor Represents 2 Points: Age 61-74 years Thrombosis Risk Factor Assessment Total Risk Factor Score: 3 Thrombosis Risk Factor Assessment Level: Moderate Risk <Sowmya James - Last Filed: 02/23/21 19:44> History of Present Illness Patient seen and examined independently. Patient was also seen by Juan Miguel Clemente NP and case was discussed. I am in agreement with subjective, physical exam, assessment and plan as written above and amended below. See discussion on discharge summary same date Physical Exam Osteopathic Statement: *. No significant issues noted on an osteopathic structural exam other than those noted in the History and Physical/Consult. Vitals: Vital Signs Temp Pulse Pulse Resp BP BP Pulse Ox 02/23/21 13:38 98.7 F 56 L 18 112/64 94 L 02/23/21 09:15 16 02/23/21 07:17 98.3 F 75 16 174/75 99 02/23/21 04:15 97.8 F 67 17 154/75 96 02/23/21 03:43 98.1 F 71 16 150/65 96 02/23/21 02:37 73 16 131/59 98 02/22/21 22:20 97.9 F 74 19 126/56 99 Intake and Output 02/23/21 02/23/21 02/23/21 06:59 14:59 22:59 Intake Total 100 200 Balance 100 200 Intake: Oral 100 200 Other: # Voids 2 Weight 74.843 kg Results CBC & Chem 7: 02/23/21 00:24 02/22/21 23:15 Labs: Abnormal Lab Results - Last 24 Hours (Table) 02/22/21 02/23/21 02/23/21 Range/Units 23:15 00:24 00:24 RBC 3.26 L (3.80-5.40) m/uL Hgb 9.4 L (11.4-16.0) gm/dL Hct 27.4 L (34.0-46.0) % Plt Count 110 L (150-450) k/uL Sodium 135 L (137-145) mmol/L BUN 21 H (7-17) mg/dL Glucose 302 H (74-99) mg/dL POC Glucose (mg/dL) (75-99) mg/dL Urine Glucose (UA) 4+ H (Negative) Ur Leukocyte Esterase Small H (Negative) Urine WBC 13 H (0-5) /hpf Urine Mucus Rare H (None) /hpf Urine Yeast (Budding) Rare H (None) /hpf 02/23/21 02/23/21 Range/Units 12:06 16:37 RBC (3.80-5.40) m/uL Hgb (11.4-16.0) gm/dL Hct (34.0-46.0) % Plt Count (150-450) k/uL Sodium (137-145) mmol/L BUN (7-17) mg/dL Glucose (74-99) mg/dL POC Glucose (mg/dL) 358 H 233 H (75-99) mg/dL Urine Glucose (UA) (Negative) Ur Leukocyte Esterase (Negative) Urine WBC (0-5) /hpf Urine Mucus (None) /hpf Urine Yeast (Budding) (None) /hpf Microbiology - Last 24 Hours (Table) 02/23/21 00:24 Urine Culture - Preliminary Urine,Voided
[2021-02-23] MEDS ORDERED: KETOROLAC 15 MG/ML 1 ML VIAL IVP PRN (10:23)
[2021-02-23 12:09] LABS: Glucose,Whole Blood 358 mg/dL (75-99)
[2021-02-23] MEDS: HYDROcodone/APAP 10-325MG 1 EACH TAB PO PRN ×2 (12:34→17:34)
[2021-02-23] MEDS: INSULIN ASPART (NovoLOG) 100 UNIT/ML VIAL SQ SCH ×2 (12:37→16:44)
[2021-02-23 13:39] VITALS: BP 112/64; PULSE 56; RESP 18; TEMP 98.7
--- NOTE | 2021-02-23 16:40 | XR ---
EXAMINATION TYPE: XR lumbar spine 2 or 3V DATE OF EXAM: 02/23/2021 COMPARISON: NONE HISTORY: Back pain TECHNIQUE: 3 views FINDINGS: There is a mild anterior subluxation of L4 in relation L5 that measures 6 mm. There is slig ht narrowing of L4-5 disc space. There is no compression fracture. Sacroiliac joints are intact. Ther e is neural stimulator in the lower thoracic spine. IMPRESSION: There is a degenerative first-degree L4-5 spondylolisthesis. No fracture seen.
[2021-02-23 16:44] LABS: Glucose,Whole Blood 233 mg/dL (75-99)
--- NOTE | 2021-02-23 17:09 | XR ---
EXAMINATION TYPE: XR thoracic spine 2V DATE OF EXAM: 02/23/2021 COMPARISON: NONE HISTORY: Back pain TECHNIQUE: 3 views FINDINGS: The thoracic vertebra have fairly normal alignment. There is no compression fracture. There is neural stimulator in the mid thoracic spine. There is no paraspinal mass. Posterior elements are intact. There Is minimal spurring anteriorly. IMPRESSION: Minor degenerative changes in the thoracic spine. No fracture.
--- NOTE | 2021-02-23 18:58 | P.DS ---
<Juan Miguel Clemente - Last Filed: 02/23/21 18:52> Providers Expected date of discharge: 02/23/21 Hospital Course: Discharge Diagnosis: Acute exacerbation of chronic Back pain Insulin-dependent diabetes mellitus type 2 Hypertension GERD Hospital Course: Patient is a very pleasant 75-year-old female with a past medical history LOPEZ, insulin-dependent diabetes mellitus, GERD, hypertension, and chronic back pain. Patient presented to the emergency department with a chief complaint of back pain. In the emergency department a CT abdomen and pelvis was completed negative for acute process revealing unchanged portal venous hypertension. Labs drawn consistent with patient's chronic normocytic normochromic anemia with hemoglobin of 9.4 with baseline of 10.0, hyperglycemia with glucose of 302, and elevated BUN of 21. Urinalysis completed negative for blood or infection. Covid 19 PCR negative. Patient seen and fully evaluated at the bedside she reports history of previous cervical, thoracic, and lumbar spinal issues. Patient states she was previously receiving spinal epidural injections up until 2013 when she had a spinal stimulator implanted in which she reports worked only for approximately 2 months and it was turned off later due to complications and states due to these complications they have been unable to remove. Patient states that she was seeing her orthospine specialist when she lived in [place] but has not been evaluated by an orthospine physician since moving to [place] in 2017. Patient reports pain shooting upwards in her back. Patient reports pain begins at the top of her hip bone and radiates upwards her back. Patient denies having any neurological deficits including numbness/tingling/weakness of her extremities or experiencing any involuntary loss of bowel or bladder. Also denies having any other complaints including headache, lightheadedness, dizziness, chest pain, palpitations, shortness of breath, abdominal pain, nausea, vomiting, changes in her difficulties with urinary function including hematuria, dysuria, frequency, or urgency. Patient admitted under our services. X-rays of thoracic and lumbar spine completed. X-ray thoracic spine showing minor degenerative changes with no fracture and x-ray lumbar spine showing degenerative first degree L4 through L5 spondylolisthesis with no fracture seen. Patient's condition stable. She reports that her pain is controlled and requesting to go home. Patient instructed to follow up outpatient with orthospine specialist as well as her pain management physician and PCP. Please refer to H&P completed earlier in the day to review a full detailed physical examination. A total of 45 minutes of time were spent preparing this complex discharge summary. Patient Condition at Discharge: Stable Plan - Discharge Summary Discharge Rx Participant: Yes New Discharge Prescriptions: Continue Insulin Detemir (Levemir) [Levemir] 76 unit SQ BID Esomeprazole Magnesium [NexIUM] 40 mg PO DAILY Insulin Glulisine [Apidra] See Protocol SQ AC-TID [id number] [Excedrin] 1 tab PO Q4HR PRN PRN Reason: Pain lisinopriL [Zestril] 10 mg PO DAILY Gabapentin 600 mg PO HS HYDROcodone/APAP 10-325MG [[place] 10-325] 1 tab PO Q6HR PRN 3 Days #12 tab PRN Reason: Pain Cephalexin [Keflex] 500 mg PO QID Ketorolac [Toradol] 10 mg PO Q8HR PRN PRN Reason: Pain Lidocaine 5% Patch [Lidoderm 5% Patch] 1 patch TOPICAL DAILY PRN PRN Reason: Pain Fluconazole [Diflucan] 150 mg PO DIRECTED PRN PRN Reason: YEAST INFECTION Discontinued valACYclovir HCL [Valtrex] 1,000 mg PO Q8H Discharge Medication List Insulin Detemir (Levemir) [Levemir] 76 unit SQ BID 05/14/17 [History] Esomeprazole Magnesium [NexIUM] 40 mg PO DAILY 02/21/18 [History] Insulin Glulisine [Apidra] See Protocol SQ AC-TID 08/30/18 [History] HYDROcodone/APAP 10-325MG [[place] 10-325] 1 tab PO Q6HR PRN 3 Days #12 tab 02/19/21 [Rx] [id number] [Excedrin] 1 tab PO Q4HR PRN 02/23/21 [History] Cephalexin [Keflex] 500 mg PO QID 02/23/21 [History] Fluconazole [Diflucan] 150 mg PO DIRECTED PRN 02/23/21 [History] Gabapentin 600 mg PO HS 02/23/21 [History] Ketorolac [Toradol] 10 mg PO Q8HR PRN 02/23/21 [History] Lidocaine 5% Patch [Lidoderm 5% Patch] 1 patch TOPICAL DAILY PRN 02/23/21 [History] lisinopriL [Zestril] 10 mg PO DAILY 02/23/21 [History] Follow up Appointment(s)/Referral(s): Giovanni Hanks MD [Primary Care Provider] - 1-2 days Chandan Charles DO [Doctor of Osteopathic Medicine] - 1 Week Patient Instructions/Handouts: Back Pain (ED) Discharge Disposition: HOME SELF-CARE <Sowmya James - Last Filed: 02/23/21 19:35> Providers Date of admission: 02/23/21 00:51 Attending physician: Sowmya James DO Primary care physician: Giovanni Hanks MD Hospital Course: Patient seen and examined independently. Patient was also seen by Juan Miguel Clemente NP and case was discussed. I am in agreement with discharge diagnosis, hospital course, and physical exam as written above and amended below. She continues to complain of back pain. She states she sees Dr. Deleon for leg pain and has a history of spondylolysis. She reports that she has had multiple MRIs done in [place]. We discussed that we will not be discharging her home with any narcotic based pain medication secondary to her follow-up chronic pain management. Patient is in agreement. We discussed a trial of steroids to increased pain control, she states that they raise her blood sugar and I stated this is acceptable for her level of pain requiring hospitalization. Shortly after patient asked to be discharged. General: non toxic, no distress, appears at stated age Derm: warm, dry Head: atraumatic, normocephalic, symmetric Eyes: EOMI, no lid lag, anicteric sclera Mouth: no lip lesion, mucus membranes moist Cardiovascular: S1S2 reg, no murmur, positive posterior tibial pulse bilateral, Lungs: CTA bilateral, no rhonchi, no rales , no accessory muscle use Ext: no gross muscle atrophy, no edema, no contractures Neuro: CN II-XI grossly intact, moving all 4 extremity's independently.
[2021-02-23] MEDS ORDERED: INSULIN DETEMIR (LEVEMIR) 100 UNIT/ML SYR SQ SCH (21:00)
[2021-02-23] MEDS ORDERED: GABAPENTIN 300 MG CAP PO SCH (21:00)
[2021-02-24] MEDS ORDERED: PANTOPRAZOLE 40 MG TABLET PO SCH (09:00)
[2021-02-24] MEDS ORDERED: lisinopriL 10 MG TAB PO SCH (09:00)
== END 2021-02-23 19:16 | disposition home or self-care (01) ==
LOC: EC 21:48 → 6NMEDSUR 02-23 00:51 → 4SSUR 02-23 03:06
PROVIDERS: ADMIT Internal Medicine; ATTEND Internal Medicine
DX: M54.6 Pain in thoracic spine (principal); G89.29 Other chronic pain; E11.65 Type 2 diabetes mellitus with hyperglycemia; I11.0 Hypertensive heart disease with heart failure; Z20.822 Contact with and (suspected) exposure to COVID-19; I50.9 Heart failure, unspecified; K21.9 Gastro-esophageal reflux disease without esophagitis; F17.200 Nicotine dependence, unspecified, uncomplicated; F32.9 Major depressive disorder, single episode, unspecified; G25.81 Restless legs syndrome; K74.60 Unspecified cirrhosis of liver; Z79.4 Long term (current) use of insulin; Z79.899 Other long term (current) drug therapy; Z81.1 Family history of alcohol abuse and dependence; Z96.1 Presence of intraocular lens
CPT/HCPCS: 96376; 96375 ×2; 96361 ×2; 96374; 99284; 36415; 80053; 83735; 84100; 84484; 85025; 81001; 87086; 87635; 72070; 72100; 74177; G0378 ×2; J2270; J1170; J1885; Q9967

== ENCOUNTER → 2021-07-04 | Outpatient (CLI) | payer MEDICARE ==
--- NOTE | 2021-07-04 11:38 | BD ---
EXAMINATION TYPE: Axial Bone Density DATE OF EXAM: 07/04/2021 COMPARISON: NONE CLINICAL HISTORY: Height: 60 Weight: 162.1 FRAX RISK QUESTIONS: Alcohol (3 or more units per day): no Family History (Parent hip fracture): no Glucocorticoids (More than 3mos): no (Ex: prednisone, prednisolone, methylprednisolone, dexamethasone, and hydrocortisone). History of Fracture in Adulthood: yes Secondary Osteoporosis: 1. Type 1 Diabetes: no 2. Hyperthyroidism: no 3. Menopause before 45: yes 4. Malnutrition: no 5. Chronic liver disease: yes Rheumatoid Arthritis: no Current Tobacco Use: yes RISK FACTORS HISTORY OF: Surgery to Spine/Hip(right/left)/Wrist (right/left): no Family History of Osteoporosis: no Active: yes Diet low in dairy products/other sources of calcium: yes Postmenopausal woman: yes Lost more than 2 inches in height since high school: no MEDICATIONS: Additional History: EXAM MEASUREMENTS: Bone mineral densitometry was performed using the [employer] System. Bone mineral density as measured about the Lumbar spine is: ----- L1-L4(G/cm2): 1.206 T Score Values are as follows: ----- L2: 1.4 ----- L3: 0.6 ----- L4: -0.8 ----- L1-L4: 0.2 Bone mineral density : baseline Bone mineral density about the R hip (g/cm2): 0.754 Bone mineral density about the L hip (g/cm2): 0.753 T Score values are as follows: -----R Neck: -2.0 -----L Neck: -2.0 -----R Total: -0.8 -----L Total: -1.0 Bone mineral density : baseline IMPRESSION: Osteopenia (T Score between -2.5 and -1). There is slightly increased risk of fracture and the patient may be considered for treatment. Re-Screen 2-5 years. NOTE: T-SCORE=SD OF THE YOUNG ADULT MEAN.
--- NOTE | 2021-07-08 09:16 | MM ---
Reason for exam: screening (asymptomatic). Last mammogram was performed 2 years and 7 months ago. History: Patient is postmenopausal. Family history of breast cancer in maternal aunt. Benign US breast aspiration single RT of the right breast, November 26, 2018. Took estrogen beginning at age 35. Physical Findings: A clinical breast exam by your physician is recommended on an annual basis and results should be correlated with mammographic findings. MG 3D Screening Mammo W/Cad Bilateral CC, MLO, and XCCL view(s) were taken. Prior study comparison: October 07, 2018, bilateral MG 3d screening mammo w/cad. September 23, 2017, bilateral MG 3d screening mammo w/cad. The breast tissue is heterogeneously dense. This may lower the sensitivity of mammography. Previous mammotome biopsy in the right breast. Benign secretory, vascular, and oil cyst calcifications bilaterally. No significant changes when compared with prior studies. ASSESSMENT: Benign, BI-RAD 2 RECOMMENDATION: Routine screening mammogram of both breasts in 1 year.
== END | disposition home or self-care (01) ==
LOC: RADMAMWWP 07:24
PROVIDERS: ATTEND Internal Medicine
DX: Z12.31 Encounter for screening mammogram for malignant neoplasm of breast (principal); Z78.0 Asymptomatic menopausal state; Z80.3 Family history of malignant neoplasm of breast
CPT/HCPCS: 77063; 77067; 77080

== ENCOUNTER → 2021-07-15 | Outpatient (CLI) | payer MEDICARE ==
[2021-07-15 14:04] VITALS: BP 175/80; PULSE 101; RESP 16; TEMP 98
== END ==
LOC: PROCWHC3 13:26
PROVIDERS: ATTEND Internal Medicine Hematology & Oncology
DX: D50.0 Iron deficiency anemia secondary to blood loss (chronic) (principal); Z87.891 Personal history of nicotine dependence; Z88.6 Allergy status to analgesic agent
CPT/HCPCS: 96365; Q0138

== ENCOUNTER → 2021-09-27 | Outpatient (CLI) | payer MEDICARE ==
--- NOTE | 2021-09-27 16:44 | US ---
EXAMINATION TYPE: US liver DATE OF EXAM: 09/27/2021 COMPARISON: CLINICAL HISTORY: K74.60 UNSPECIFIED CIRRHOSIS OF LIVER. GB removed. EXAM MEASUREMENTS: Liver Length: 18.0 cm right normal less than 15.5 cm. CBD: 1.2 cm Right Kidney: 9.4 x 4.5 x 4.6 cm Pancreas: Heterogenous Liver: Heterogenous. Coarse. Enlarged. Gallbladder: Surgically absent Evidence for sonographic Perez's sign: neg CBD: Dilated Right Kidney: No hydronephrosis or masses seen IMPRESSION: 1. Moderate fatty infiltration of the liver. Hepatomegaly is present.
== END | disposition home or self-care (01) ==
LOC: RADUSWWP 07:26
PROVIDERS: ATTEND Internal Medicine Gastroenterology
DX: K76.0 Fatty (change of) liver, not elsewhere classified (principal); R16.0 Hepatomegaly, not elsewhere classified; Z90.49 Acquired absence of other specified parts of digestive tract
CPT/HCPCS: 76705

== ENCOUNTER 2021-10-16 06:53 | Day surgery (SDC) | payer MEDICARE ==
[2021-10-15 09:26] VITALS: BMI 31.2
[~2021-10-16 06:53] MED LIST changes: +LACTATED RINGERS 1,000 ML IV SCH; +LIDOCAINE 1% (10MG/ML) FOR IV START INTRADERMA PRN; -SODIUM CHLORIDE 0.9% 500 ML 500 ML in EMPTY BAG 1 BAG IV PRN
[2021-10-16] MEDS ORDERED: LACTATED RINGERS 1,000 ML IV ONE (07:21)
[2021-10-16 07:30] VITALS: TEMP 97.2
[2021-10-16 07:44] LABS: Glucose,Whole Blood 116 mg/dL (75-99)
[2021-10-16] MEDS ORDERED: PROPOFOL 10 MG/ML 20 ML VIAL IV ONE (07:54)
[2021-10-16] MEDS ORDERED: LIDOCAINE 2% INJ 20 MG/ML (2 ML VIAL) ONE (07:54)
--- NOTE | 2021-10-16 08:29 | P.PCN ---
Date of Procedure: 10/16/21 Procedure(s) Performed: Brief history: Patient is a pleasant 76-year-old white female scheduled for an elective upper endoscopy as well as colonoscopy as a part of evaluation of liver cirrhosis and iron deficiency anemia Procedure performed: Esophagogastroduodenoscopy with biopsy Colonoscopy Preoperative diagnosis: History of liver cirrhosis screening for esophageal varices Iron deficiency anemia Anesthesia: MAC Procedure: After informed consent was obtained from the patient was brought into the en doscopy unit and IV sedation was administered by anesthesia under continuous monitoring. Initially upper endoscopy was done. The Olympus GF 160 video endoscope was inserted inserted into the mouth and esophagus intubated without any difficulty and was gradually advanced into the stomach and duodenum and carefully examined. The bulb and second part of the duodenum appeared normal. The scope was then withdrawn into the stomach adequately insufflated with air and upon careful examination the antrum had mild gastritis and biopsies were done from this area. The body, cardia and fundus appeared normal. isolated gastric fundal varices identified which were small. The scope was then withdrawn into the esophagus. The GE junction was located at 40 cm to the incisors. It appeared regular with no erythema erosions or ulcerations. Rest of the esophagus appeared normal. Patient tolerated the procedure well. At this time the patient continued to remain sedation. Initial digital rectal examination was normal. Olympus CF 160 video colonoscope was then inserted into the rectum and gradually advanced to the sigmoid: Further advancement was not possible and hence the scope was removed and a pediatric colonoscopy was then inserted into the rectum. He was gradually advanced into the cecum with moderate to severe difficulty. Careful examination was performed as the scope was gradually being withdrawn. The prep was excellent. The cecum, ascending colon, transverse colon, descending colon, sigmoid colon and rectum appeared normal. The left sided diverticulosis. Retroflexion was performed in the rectum and no lesions were noted. Patient tolerated the procedure well. Impression: 1. Upper endoscopy revealed isolated small gastric fundal varices with no evidence of esophageal varices and mild antral gastritis 2. Colonoscopy revealed scattered sigmoid diverticulosis but no evidence of colorectal neoplasia Recommendations: Findings of this examination were discussed with the patient as well as a family. She was advised to follow with the biopsy results. She'll be seen in office in 3-4 weeks
[2021-10-16 08:39] VITALS: RESP 16
[2021-10-16 08:40] LABS: Glucose,Whole Blood 121 mg/dL (75-99)
[2021-10-16 08:51] VITALS: BP 162/76; PULSE 65
== END 2021-10-16 09:15 | disposition home or self-care (01) ==
LOC: ORWHC2ENDO 06:53
PROVIDERS: ATTEND Internal Medicine Gastroenterology
DX: D50.9 Iron deficiency anemia, unspecified (principal); K74.60 Unspecified cirrhosis of liver; K29.70 Gastritis, unspecified, without bleeding; K57.30 Diverticulosis of large intestine without perforation or abscess without bleeding; E11.9 Type 2 diabetes mellitus without complications; Z98.890 Other specified postprocedural states; K21.9 Gastro-esophageal reflux disease without esophagitis; Z90.710 Acquired absence of both cervix and uterus; Z98.42 Cataract extraction status, left eye; Z98.41 Cataract extraction status, right eye; Z97.2 Presence of dental prosthetic device (complete) (partial); Z79.4 Long term (current) use of insulin; Z79.899 Other long term (current) drug therapy; Z79.891 Long term (current) use of opiate analgesic; Z88.5 Allergy status to narcotic agent
CPT/HCPCS: 88305; 45378; 43239; J2704; J2001

== ENCOUNTER → 2021-12-13 | Outpatient (CLI) | payer MEDICARE ==
[2021-12-13 17:47] LABS: Basophils # (A) 0.06 X 10*3/uL (0.00-0.10); Basophils % (A) 0.9 %; Eosinophils # (A) 0.18 X 10*3/uL (0.04-0.35); Eosinophils % (A) 2.8 %; HCT 37.9 % (37.2-46.3); HGB 11.8 g/dL (12.0-15.0); Immature Grans, Automated 0.5 %; Lymphocytes # (A) 1.69 X 10*3/uL (0.90-5.00); Lymphocytes % (A) 26.2 %; MCH 26.6 pg (27.0-32.0); MCHC 31.1 g/dL (32.0-37.0); MCV 85.4 fL (80.0-97.0); Mean Platelet Volume 11.2 fL (9.5-12.2); Monocytes # (A) 0.42 X 10*3/uL (0.20-1.00); Monocytes % (A) 6.5 %; NRBC Per 100 WBC 0 /100 WBCS (0.0-0.0); Neutrophils # (A) 4.07 X 10*3/uL (1.80-7.70); Neutrophils % (A) 63.1 %; Platelet Count 146 X 10*3/uL (140-440); RBC 4.44 X 10*6/uL (4.10-5.20); RDW 14.6 % (11.5-14.5); WBC 6.45 X 10*3/uL (4.50-10.00)
[2021-12-13 18:01] LABS: Anion Gap 11.1 mmol/L (10.00-18.00); Carbon Dioxide 22.9 mmol/L (20.0-27.5); Potassium 4.4 mmol/L (3.5-5.5)
== END | disposition home or self-care (01) ==
LOC: LABPAT 11:39
PROVIDERS: ATTEND Orthopaedic Surgery
DX: Z01.812 Encounter for preprocedural laboratory examination (principal); M65.341 Trigger finger, right ring finger; M65.332 Trigger finger, left middle finger; M65.342 Trigger finger, left ring finger
CPT/HCPCS: 80051; 85025

== ENCOUNTER 2021-12-20 07:45 | Day surgery (SDC) | payer MEDICARE ==
--- NOTE | 2021-12-19 13:49 | HP ---
HISTORY AND PHYSICAL CHIEF COMPLAINT: Right 3rd and 4th digit locking and pain. 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 It bothers her worse in the morning. She has difficult time with gripping and grasping. PAST MEDICAL HISTORY: Significant for type 1 diabetes, gastroesophageal reflux disease, hypercholesterolemia, hypertension, chronic pain, cirrhosis, and history of previous pyelonephritis. PAST SURGICAL HISTORY: Significant for cholecystectomy, right foot surgery, right arm surgery, hysterectomy, tonsillectomy, left hip surgery and lithotripsy. CURRENT MEDICATIONS: Atorvastatin, Foster, ( ), cyclobenzaprine, gabapentin. ALLERGIES: TALWIN. FAMILY HISTORY: Significant for heart disease and cancer. SOCIAL HISTORY: Significant for tobacco use. REVIEW OF SYSTEMS: Sixteen point review of systems otherwise reviewed and is noncontributory. PHYSICAL EXAMINATION: On examination, the patient is approximately 5 feet tall, 160 pounds of endomorphic habitus. HEENT exam is nonfocal. Neck is supple. She is nontender about the right shoulder, elbow and wrist. On examination of right hand, she is tender over the 3rd and 4th digits at the A1 paula. She has palpable triggering and a palpable nodule. Light touch is diminished in the 3rd digit and the thumb. Her distal neurovascular exam otherwise is intact. IMPRESSION: Right 3rd and 4th digit trigger fingers-symptomatic. RECOMMENDATIONS: I talked to the patient at length regarding her condition along with treatment options. At this point she is quite limited with pain despite previous conservative measures. After thorough discussion, she opts to proceed with surgery. We will plan to proceed with right 3rd and 4th digit trigger release. Risks and benefits were discussed at length in layman's terms. We will likely perform as an outpatient procedure utilizing local anesthetic and IV sedation. MMODL / IJN: [id number] /
[~2021-12-20 07:45] MED LIST changes: +DEXAMETHASONE SOD PHOSPHATE 4 MG/ML 1 ML VIAL IV ONE; +HYDROmorphone 0.5 MG/0.5 ML SYRINGE IVP PRN; -LIDOCAINE 1% (10MG/ML) FOR IV START INTRADERMA PRN; +MIDAZOLAM 2 MG/2 ML VIAL IV PRN; +ONDANSETRON 4 MG/2 ML VIAL IVP ONE
[2021-12-20 08:28] LABS: Glucose,Whole Blood 243 mg/dL (70-110)
[2021-12-20 08:29] VITALS: TEMP 96.2
[2021-12-20] MEDS ORDERED: INSULIN REGULAR 100 UNIT/ML VIAL (IM/SQ) SQ STA (08:51)
[2021-12-20] MEDS ORDERED: PROPOFOL 10 MG/ML 20 ML VIAL IV ONE (10:04)
[2021-12-20] MEDS ORDERED: MIDAZOLAM 2 MG/2 ML VIAL ONE (10:04)
[2021-12-20] MEDS ORDERED: fentaNYL (PF) 50 MCG/ML 2 ML AMP ONE (10:04)
[2021-12-20] MEDS ORDERED: LIDOCAINE 2% INJ 20 MG/ML (2 ML VIAL) ONE (10:04)
[2021-12-20] MEDS ORDERED: BUPIVACAINE (PF) 0.25% 30 ML VIAL SQ ONE (10:06)
--- NOTE | 2021-12-20 10:40 | P.OP ---
Date of Procedure: 12/20/21 Preoperative Diagnosis: Right third and fourth digit trigger fingerssymptomatic Postoperative Diagnosis: Same Procedure(s) Performed: Right third and fourth digit trigger finger release Anesthesia: MAC, local Surgeon: Vasquez Kelsey Estimated Blood Loss (ml): 1 Pathology: none sent Condition: stable Disposition: PACU Indications for Procedure: The patient's a 76-year-old female presents with persistent/progressive right third and fourth digit pain and triggering for the past several months despite conservative measures. A discussion of the risks and benefits of operative intervention versus continued conservative measures was made with patient. She opted to proceed with surgery. Operative risks to include infection, neurovascular injury, development of blood clots, possible incomplete resolution of symptoms, possible recurrence of symptoms and need for subsequent procedures was discussed. Informed consent was obtained. Operative Findings: As below Description of Procedure: The patient was brought to the operating room and after induction of IV sedation right upper extremity was prepped and draped in normal fashion. The tourniquet was inflated to 270 mmHg. The proposed incision site was outlined with a skin marker just proximal to the distal palmar crease measuring approximate 1 cm in line with the third and fourth digits. 8 mL of quarter percent plain Marcaine was injected into the proposed incision site. The skin was incised sharply over the third digit. Subcutaneous tissues were divided bluntly. The neurovascular bundles were gently retracted. The A1 paula was then identified and transected under direct visualization proximally and distally. There was nodularity of the flexor tendon. I felt I had adequate release at this point. The procedure was then repeated for the fourth digit. The wound was irrigated normal saline. The skin was reapproximated with simple 4-0 nylon sutures. A sterile dressing was applied. The tourniquet was deflated with less than 15 minutes total tourniquet time. Blood loss was estimated at 1 mL. the case were incurred. Sponge and needle counts were correct at the end of the case.
[2021-12-20 10:49] VITALS: RESP 16
[2021-12-20 10:57] LABS: Glucose,Whole Blood 225 mg/dL (70-110)
[2021-12-20 11:22] VITALS: BP 178/84; PULSE 69
== END 2021-12-20 11:55 | disposition home or self-care (01) ==
LOC: OR 07:45
PROVIDERS: ATTEND Orthopaedic Surgery
DX: M65.331 Trigger finger, right middle finger (principal); M65.341 Trigger finger, right ring finger; E11.9 Type 2 diabetes mellitus without complications; K21.9 Gastro-esophageal reflux disease without esophagitis; E78.00 Pure hypercholesterolemia, unspecified; I10 Essential (primary) hypertension; G89.29 Other chronic pain; K74.60 Unspecified cirrhosis of liver; Z87.448 Personal history of other diseases of urinary system; Z90.49 Acquired absence of other specified parts of digestive tract; Z90.710 Acquired absence of both cervix and uterus; Z98.890 Other specified postprocedural states; Z82.49 Family history of ischemic heart disease and other diseases of the circulatory system; Z80.9 Family history of malignant neoplasm, unspecified; Z79.891 Long term (current) use of opiate analgesic; Z79.899 Other long term (current) drug therapy; Z88.5 Allergy status to narcotic agent
CPT/HCPCS: 26055 ×2; J2250; J1100; J2405; J0690; J3010; J2704; J2001

== ENCOUNTER → 2022-08-28 | Outpatient (CLI) | payer MEDICARE ==
[2022-08-28 14:39] LABS: African American GFR (CKD) 84.2 (60.0-200.0); Anion Gap 10.3 mmol/L (10.00-18.00); BUN/Creat Ratio 13.5 Ratio (12.00-20.00); Blood Urea Nitrogen 10.8 mg/dL (9.0-27.0); Carbon Dioxide 24.7 mmol/L (20.0-27.5); Non-African American GFR(CKD) 72.6 (60.0-200.0); Potassium 4.7 mmol/L (3.5-5.5)
== END | disposition home or self-care (01) ==
LOC: LABWHC1 07:26
PROVIDERS: ATTEND Nuclear Medicine Nuclear Cardiology
DX: I10 Essential (primary) hypertension (principal)
CPT/HCPCS: 36415; 80048

== ENCOUNTER → 2023-02-23 | Outpatient (CLI) | payer MEDICARE ==
--- NOTE | 2023-02-23 09:17 | US ---
EXAMINATION TYPE: US liver DATE OF EXAM: 02/23/2023 COMPARISON: US 07/28/2022, CT 02/23/2021 CLINICAL INDICATION: Female, 77 years old with history of K74.60 UNSPECIFIED CIRRHOSIS OF LIVER; Non alcoholic cirrhosis. Hx cholecystectomy. TECHNIQUE: Multiple sonographic images of the right upper quadrant are obtained. FINDINGS: EXAM MEASUREMENTS: Liver Length: 18.8 cm Gallbladder Wall: Surgically absent. CBD: 1.20 cm Right Kidney: 11.5 x 4.9 x 5.3 cm ROUNDING MACHINE TENDER NOTES: Exam is limited due to gas. Pancreas: Tail was not well seen. Liver: Appears enlarged and very heterogeneous. Gallbladder: Surgically absent. CBD: Appears slightly dilated. Right Kidney: No hydronephrosis or masses seen The visualized portions of the pancreas unremarkable. The tail is obscured by overlying bowel gas. Li heide is enlarged with diffusely heterogenous appearance. No focal lesion identified within this limita tion. Gallbladder is surgically absent. Common bile duct is again dilated measuring up to 1.2 cm. Rig ht kidney is unremarkable without evidence of hydronephrosis, solid mass, or nephrolithiasis. IMPRESSION: 1. Hepatomegaly with diffusely heterogenous appearance again. No focal lesion within these limitation s. 2. Postcholecystectomy changes with stable dilated common bile duct.
== END | disposition home or self-care (01) ==
LOC: RADUSWWP 06:52
PROVIDERS: ATTEND Internal Medicine Gastroenterology
DX: K74.60 Unspecified cirrhosis of liver (principal); Z90.49 Acquired absence of other specified parts of digestive tract; R16.0 Hepatomegaly, not elsewhere classified
CPT/HCPCS: 76705

== ENCOUNTER → 2023-02-23 | Outpatient (CLI) | payer MEDICARE ==
[2023-02-23 14:34] LABS: ALT 25 U/L (8-44); AST 33 U/L (13-35); Albumin/Globulin Ratio 1.05 Ratio (1.60-3.17); Alkaline Phosphatase 143 U/L (41-126); BUN/Creat Ratio 12.67 Ratio (12.00-20.00); Blood Urea Nitrogen 11.4 mg/dL (9.0-27.0); Calcium 9.6 mg/dL (8.7-10.3); Carbon Dioxide 25.7 mmol/L (21.6-31.8); Chloride 103 mmol/L (96-109); Globulin 3.8 d/dL (1.6-3.3); Glucose 194 mg/dL (70-110); Potassium 5.4 mmol/L (3.5-5.5); Sodium 138 mmol/L (135-145); Total Bilirubin 0.7 mg/dL (0.3-1.2); Total Protein 7.8 d/dL (6.2-8.2)
== END | disposition home or self-care (01) ==
LOC: LABWHC1 07:26
PROVIDERS: ATTEND Internal Medicine Gastroenterology
DX: K74.60 Unspecified cirrhosis of liver (principal)
CPT/HCPCS: 36415; 80053

== ENCOUNTER → 2023-02-24 | Outpatient (CLI) | payer MEDICARE ==
--- NOTE | 2023-02-24 17:04 | US ---
EXAMINATION TYPE: US arterial LE single level DATE OF EXAM: 02/24/2023 8:09 AM CLINICAL INDICATION: Female, 77 years old with history of Z12.31 SCRMAM, R25.2 CRAMP AND SPASM; bilat eral leg pain, pain radiating down posterior leg from back History of: Smoker: Current Smoker Hypertension: Y Diabetic: Y TYPE 1 Hyperlipidemia: N TIA/CVA: N Previous Vascular Surgery: N CAD: N [place]: N Vascular Ulcers: N Claudication: N Gangrene: N Doppler Waveforms: Right: Multiphasic Left: Multiphasic Right Brachial Pressure: 161 Left Brachial Pressure: 168 Ankle-Brachial Indices: Right: 1.14 Left: 1.19 Toe Brachial Indices: Monophasic waveforms are present bilaterally. Right: 0.87 Left: 0.75 NORMAL PIPPA AND TBI BILATERALLY IMPRESSION: 1. Mild lower extremity stenosis
--- NOTE | 2023-02-25 18:11 | MM ---
Reason for Exam: Screening (asymptomatic). Last mammogram was performed 1 year(s) and 8 month(s) ago. Patient History: Menarche at age 16. First Full-Term at age 18. Left ovary removed at age 35. Right ovary removed at age 35. Hysterectomy at age 35. Postmenopausal. Estrogen, from age 35 until age 68. 11/26/2018, Benign Cyst Aspiration on the right side. Maternal aunt had breast cancer. Risk Values: Sandra 5 year model risk: 1.2%. NCI Lifetime model risk: 2.5%. Prior Study Comparison: 10/07/2018 Bilateral Screening Mammogram, [facility]. 11/26/2018 Right Diagnostic Mammogram, [facility]. 07/04/2021 Bilateral Screening Mammogram, [facility]. Tissue Density: The breast tissue is heterogeneously dense. This may lower the sensitivity of mammography. Findings: Analyzed By CAD. Pattern appears symmetrical and stable. No significant interval change is evident. Multiple scattered benign linear, round, and vascular calcifications are present bilaterally. No suspicious groups of microcalcifications, spiculated or lobular masses, architectural distortion or other secondary signs of malignancy are mammographically apparent. Overall Assessment: Benign, BI-RAD 2 Management: Screening Mammogram of both breasts in 1 year. A negative mammogram report should not preclude additional follow up of suspicious palpable abnormalities. Patient should continue monthly self breast exam. A clinical breast exam by your physician is recommended on an annual basis and results should be correlated with mammographic findings. Electronically signed and approved by: Matthew Bustamante D.O. Radiologis
== END | disposition home or self-care (01) ==
LOC: RADMAMWWP 07:05
PROVIDERS: ATTEND Internal Medicine
DX: Z12.31 Encounter for screening mammogram for malignant neoplasm of breast (principal); I70.201 Unspecified atherosclerosis of native arteries of extremities, right leg; R25.2 Cramp and spasm; Z78.0 Asymptomatic menopausal state; Z80.3 Family history of malignant neoplasm of breast
CPT/HCPCS: 77063; 77067; 93922

== ENCOUNTER → 2023-08-17 | Outpatient (CLI) | payer MEDICARE ==
--- NOTE | 2023-08-17 10:20 | CTL ---
EXAMINATION TYPE: CT Low Dose Lung DATE OF EXAM ORDERED: 08/17/2023 HISTORY: 07/28/2022.. Lung cancer screening CT DLP: [address] CTDI: 3.7 mGy Automated exposure control for dose reduction was used. SCREENING VISIT: Follow-up. COMPARISON: 07/28/2022. TECHNIQUE: Low dose computed tomography scan was performed through the chest at 1 mm thick sections a nd reconstructed images in multiple planes at 1 mm and [address] DIAGNOSTIC QUALITY: Satisfactory FINDINGS: LUNG NODULES: Unchanged 5 mm calcified nodule abutting the pleural surface within the right upper lob e on series 4 image 45. There are some scattered basilar opacity otherwise seen throughout the lungs bilaterally which are likely atelectasis or scarring. LUNGS: COPD: Severity: Mild diffuse centrilobular groundglass nodularity. Fibrosis: Severity: None Lymph nodes: No adenopathy. Other findings: RIGHT PLEURAL SPACE: Effusion: None Calcification: None Thickening: None Pneumothorax: None LEFT PLEURAL SPACE: Effusion: None Calcification: None Thickening: None Pneumothorax: None HEART: Heart Size: Normal Coronary Calcification: Significant coronary artery calcifications. Pericardial Effusion: None OTHER FINDINGS: Upper abdomen: Nodular contour to the liver suggestive of cirrhosis. The gallbladder is absent. Bony thorax: None Supraclavicular region: None Other: None IMPRESSION: 1. Unchanged pulmonary nodule. 2. No new or enlarging nodules. 3. Mild smoking-related change. 4. Severe coronary artery calcifications. 5. Cirrhotic appearance of the liver. CT LUNG RAD AND CT CHEST RECOMMENDATION: Lung-Rad 2 Benign Appearance or Behavior: Continue annual sc reening with LDCT in 12 months.
== END | disposition home or self-care (01) ==
LOC: RADCTMAIN 07:27
PROVIDERS: ATTEND Internal Medicine
DX: Z12.2 Encounter for screening for malignant neoplasm of respiratory organs (principal); R91.1 Solitary pulmonary nodule; I25.10 Atherosclerotic heart disease of native coronary artery without angina pectoris; K74.60 Unspecified cirrhosis of liver
CPT/HCPCS: 71271

== ENCOUNTER → 2023-08-17 | Outpatient (CLI) | payer MEDICARE ==
[2023-08-17 11:06] LABS: Basophils # (A) 0.06 X 10*3/uL (0.00-0.10); Basophils % (A) 1.2 %; HCT 33.9 % (37.2-46.3); HGB 10.2 g/dL (12.0-15.0); Lymphocytes # (A) 1.25 X 10*3/uL (0.90-5.00); Lymphocytes % (A) 25.6 %; MCH 24.8 pg (27.0-32.0); MCHC 30.1 g/dL (32.0-37.0); MCV 82.3 FL (80.0-97.0); Mean Platelet Volume 10.6 FL (9.5-12.2); Monocytes % (A) 8.2 %; NRBC Per 100 WBC 0 X 10*3/uL (0.00-0.01); Neutrophils # (A) 3.05 X 10*3/uL (1.80-7.70); Neutrophils % (A) 62.6 %; Platelet Count 109 X 10*3/uL (140-440); RBC 4.12 X 10*6/uL (4.10-5.20); WBC 4.88 X 10*3/uL (4.50-10.00)
[2023-08-17 11:23] LABS: ALT 15 U/L (8-44); AST 29 U/L (13-35); Albumin 3.7 g/dL (3.8-4.9); Albumin/Globulin Ratio 1.03 Ratio (1.60-3.17); Alkaline Phosphatase 124 U/L (41-126); BUN/Creat Ratio 14.57 Ratio (12.00-20.00); Blood Urea Nitrogen 10.2 mg/dL (9.0-27.0); Carbon Dioxide 28.8 mmol/L (21.6-31.8); Chloride 103 mmol/L (96-109); Chol/HDL Ratio 3.66 Ratio; Globulin 3.6 g/dL (1.6-3.3); Glucose 162 mg/dL (70-110); LDL Cholesterol,Calculated 82.3 mg/dL (0.0-131.0); Magnesium 1.3 mg/dL (1.5-2.4); Potassium 4.1 mmol/L (3.5-5.5); Sodium 139 mmol/L (135-145); Total Bilirubin 0.6 mg/dL (0.3-1.2); Total Protein 7.3 g/dL (6.2-8.2)
== END | disposition home or self-care (01) ==
LOC: LABWHC1 07:43
PROVIDERS: ATTEND Nurse Practitioner Family
DX: E11.65 Type 2 diabetes mellitus with hyperglycemia (principal); K74.60 Unspecified cirrhosis of liver
CPT/HCPCS: 36415; 80053; 80061; 82105; 83735; 84443; 85025

== ENCOUNTER → 2023-08-17 | Outpatient (CLI) | payer MEDICARE ==
--- NOTE | 2023-08-17 11:48 | US ---
EXAMINATION TYPE: US liver DATE OF EXAM: 08/17/2023 COMPARISON: NONE CLINICAL INDICATION: Female, 77 years old with history of K74.60 UNSPECIFIED CIRRHOSIS OF LIVER; Cirr hosis, cholecystectomy TECHNIQUE: Multiple sonographic images of the right upper quadrant are obtained. FINDINGS: EXAM MEASUREMENTS: Liver Length: 17.1 cm Gallbladder: Surgically absent CBD: 0.8 cm Right Kidney: 9.9 x 4.6 x 4.5 cm SHUTTLE INSPECTOR NOTES: *Limitations due to overlying bowel gas Pancreas: Tail obscured by overlying bowel gas Liver: Slightly heterogeneous and echogenic. No focal lesion seen. Gallbladder: Surgically absent Evidence for sonographic Perez's sign: no CBD: Mildly dilated at 8 mm. Right Kidney: no evidence of hydronephrosis IMPRESSION: 1. Mildly echogenic and heterogeneous liver parenchyma suggesting nonspecific hepatocellular disease. No sonographic evidence for hepatoma. 2. Bile duct mildly dilated at 8 mm, acceptable given postcholecystectomy status.
== END | disposition home or self-care (01) ==
LOC: RADUSWWP 07:02
PROVIDERS: ATTEND Internal Medicine Gastroenterology
DX: K76.89 Other specified diseases of liver (principal); K83.8 Other specified diseases of biliary tract; K74.60 Unspecified cirrhosis of liver; Z90.49 Acquired absence of other specified parts of digestive tract
CPT/HCPCS: 76705

== ENCOUNTER 2023-08-30 15:13 | Emergency (ER) | payer MEDICARE ==
[2023-08-30 15:50] VITALS: TEMP 97.6
--- NOTE | 2023-08-30 15:57 | XR ---
EXAMINATION TYPE: XR chest 2V DATE OF EXAM: 08/30/2023 3:52 PM CLINICAL INDICATION:Female, 77 years old with history of Chest Pain; H COMPARISON: Chest radiographs from TECHNIQUE: XR chest 2V Frontal and lateral views of the chest. FINDINGS: Lungs/Pleura: There is no evidence of pleural effusion, focal consolidation, or pneumothorax. Pulmonary vascularity: Unremarkable. Heart/mediastinum: Cardiomediastinal silhouette is unremarkable. Musculoskeletal: No acute osseous pathology. Partially visualized right shoulder prosthesis. Spinal s timulator leads overlying the thoracic spine. IMPRESSION: No acute cardiopulmonary disease/process.
[2023-08-30 16:06] LABS: Basophils % (A) 1 %; Eosinophils # (A) 0.1 k/uL (0-0.7); Eosinophils % (A) 3 %; HCT 35.7 % (34.0-46.0); HGB 10.7 gm/dL (11.4-16.0); Hypochromasia Marked; Lymphocytes # (A) 1.5 k/uL (1.0-4.8); Lymphocytes % (A) 28 %; MCH 25.2 pg (25.0-35.0); MCHC 29.9 g/dL (31.0-37.0); MCV 84.1 fL (80.0-100.0); Mean Platelet Volume 9.2; Monocytes # (A) 0.3 k/uL (0-1.0); Monocytes % (A) 6 %; Neutrophils # (A) 3.4 k/uL (1.3-7.7); Neutrophils % (A) 61 %; Platelet Count 118 k/uL (150-450); RBC 4.24 m/uL (3.80-5.40); RDW 15.9 % (11.5-15.5); WBC 5.5 k/uL (3.8-10.6)
[2023-08-30 16:21] LABS: ALT 19 U/L (4-34); AST 35 U/L (14-36); African American GFR (CKD) >90 (>60 ml/min/1.73 sqM); Albumin 3.7 g/dL (3.5-5.0); Alkaline Phosphatase 130 U/L (38-126); Anion Gap 10 mmol/L; Blood Urea Nitrogen 12 mg/dL (7-17); Calcium 8.9 mg/dL (8.4-10.2); Carbon Dioxide 23 mmol/L (22-30); Chloride 103 mmol/L (98-107); Glucose 251 mg/dL (74-99); Magnesium 1.3 mg/dL (1.6-2.3); Non-African American GFR(CKD) 86 (>60 ml/min/1.73 sqM); Potassium 3.1 mmol/L (3.5-5.1); Sodium 136 mmol/L (137-145); Total Bilirubin 0.8 mg/dL (0.2-1.3); Total Protein 7.5 g/dL (6.3-8.2)
[2023-08-30 16:22] LABS: INR 1.2 (<1.2); Partial Thromboplastin Time 29.3 sec (22.0-30.0); Prothrombin Time 12.5 sec (10.0-12.5)
--- NOTE | 2023-08-30 19:00 | ED ---
Chest Pain HPI - General Chief Complaint: Chest Pain Stated Complaint: High BP Time Seen by Provider: 08/30/23 17:17 Source: patient Mode of arrival: ambulatory - History of Present Illness Initial Comments: 77-year-old female presenting to the ED with a chief complaint of hypertension. Patient states while at home today had 3 episodes where she felt some pain from her neck wrapping around her upper torso. At this time this is resolved however following this episode states that she checked her blood pressure and noticed it was in the 200s systolic prompting presentation to the ED for further evaluation. Denies chest pain, shortness of breath, palpitations, abdominal pain, nausea, vomiting or diarrhea. No fever or chills. No other complaints at this time. - Related Data Home Medications Medication Instructions Recorded Confirmed Insulin Detemir (Levemir) [Levemir] 76 unit SQ BID 05/14/17 08/28/23 Esomeprazole Magnesium [NexIUM] 40 mg PO DAILY 02/21/18 08/28/23 Cyclobenzaprine [Flexeril] 10 mg PO HS 07/15/21 08/28/23 Pramipexole [Mirapex] 1 mg PO HS 10/15/21 08/28/23 Atorvastatin [Lipitor] 20 mg PO HS 12/18/21 08/28/23 Gabapentin 600 mg PO HS 12/18/21 08/28/23 Aspirin [Adult Low Dose Aspirin EC] 81 mg PO DAILY 08/12/22 08/28/23 Losartan [Cozaar] 25 mg PO HS 08/12/22 08/28/23 carvediloL 12.5 mg PO BID 08/12/22 08/28/23 Previous Rx's Medication Instructions Recorded HYDROcodone/APAP 10-325MG [[place] 1 tab PO Q6HR PRN 3 Days #12 tab 02/19/21 10-325] Allergies Allergy/AdvReac Type Severity Reaction Status Date / Time pentazocine [From [place]] Allergy Hallucinati Verified 08/28/23 09:15 ons Review of Systems ROS Statement: Those systems with pertinent positive or pertinent negative responses have been documented in the HPI. ROS Other: All systems not noted in ROS Statement are negative. Past Medical History Past Medical History: Coronary Artery Disease (CAD), Chest Pain / Angina, Heart Failure, Diabetes Mellitus, GERD/Reflux, GI Bleed, Hypertension, Liver Disease Additional Past Medical History / Comment(s): anemia and has had several iron infusions/blood transfusions,past bleeding gastric ulcers, rectal bleed, nonalcoholic liver cirrhosis, chronic diarrhea past 3 years ,RLS, low back/L hip pain, clausterphobia. History of Any Multi-Drug Resistant Organisms: None Reported Past Surgical History: Hysterectomy, Orthopedic Surgery, Tonsillectomy Additional Past Surgical History / Comment(s): Hemorrhagic cyst removed from right ureter; Right foot surgery d/t crush injury; Left hip pain stimulator implanted, Steel iris in right arm, EGDs/colonoscopies, bone marrow aspirations, low back and cervical injections for pain, bilateral cataract removals with lens implants. Right middle and ring finger trigger release. Past Anesthesia/Blood Transfusion Reactions: No Reported Reaction, Motion Sickness Additional Past Anesthesia/Blood Transfusion Reaction / Comment(s): Pt has had several blood transfusions without reaction. Pt has clausterphobia. Past Psychological History: No Psychological Hx Reported Smoking Status: Current every day smoker - Past Family History Father Additional Family Medical History / Comment(s): Father was an alcoholic but was sober for the last 9 yrs of his life. Mother Family Medical History: Coronary Artery Disease (CAD), Diabetes Mellitus Additional Family Medical History / Comment(s): Low hgb. She during a colonoscopy. She had 4 vessel CABG Sister(s) Additional Family Medical History / Comment(s): heart stent General Exam General appearance: alert, in no apparent distress Head exam: Present: atraumatic, normocephalic Eye exam: Present: normal appearance, PERRL, EOMI ENT exam: Present: mucous membranes moist Neck exam: Present: normal inspection Respiratory exam: Present: normal lung sounds bilaterally Cardiovascular Exam: Present: regular rate, normal rhythm GI/Abdominal exam: Present: soft Neurological exam: Present: alert, oriented X3, CN II-XII intact (Finger-to- nose, [id number], rapid alternating hand movements intact.) Skin exam: Present: warm, dry Course Vital Signs 08/30/23 08/30/23 08/30/23 15:21 17:45 18:45 Temperature 97.6 F Pulse Rate 68 64 72 Respiratory 16 18 18 Rate Blood Pressure 171/101 199/81 161/73 O2 Sat by Pulse 94 L 98 98 Oximetry 08/30/23 08/30/23 08/30/23 19:04 19:09 19:33 Temperature Pulse Rate 64 64 73 Respiratory 18 16 18 Rate Blood Pressure 197/100 193/71 173/68 O2 Sat by Pulse 98 99 99 Oximetry Chest Pain MDM - MDM Was pt. sent in by a medical professional or institution (, [facility], STEEL WHEEL ENGRAVER, urgent care, hospital, or [facility]...) When possible be specific @ -No Did you speak to anyone other than the patient for history (EMS, parent, family, police, friend...)? What history was obtained from this source @ -No Did you review nursing and triage notes (agree or disagree)? Why? @ -I reviewed and agree with nursing and triage notes Were old charts reviewed (outside hosp., previous admission, EMS record, old EKG, old radiological studies, urgent care reports/EKG's, [facility] records)? Report findings @ -No old charts were reviewed Differential Diagnosis (chest pain, altered mental status, abdominal pain women, abdominal pain men, vaginal bleeding, weakness, fever, dyspnea, syncope, headache, dizziness, GI bleed, back pain, seizure, CVA, palpatations, mental health, musculoskeletal)? @ -Differential Chest Pain: Stable Angina, Unstable Angina, STEMI, NSTEMI Aortic Dissection, Pneumothorax, Musculoskeletal, Esophageal Spasm GERD, Cholecystitis, Pancreatitis, Zoster, this is not meant to be an all-inclusive list. EKG interpreted by me (3pts min.). @ -EKG interpreted by me which shows a sinus rhythm without acute ST or T wave changes at a rate of 64 bpm. QT/QTc 6/415. X-rays interpreted by me (1pt min.). @ -Chest x-ray interpreted me which revealed no evidence of acute finding. CT interpreted by me (1pt min.). @ -None done U/S interpreted by me (1pt. min.). @ -None done What testing was considered but not performed or refused? (CT, X-rays, U/S, labs)? Why? @ -None What meds were considered but not given or refused? Why? @ -None Did you discuss the management of the patient with other professionals (professionals i.e. , [facility], STEEL WHEEL ENGRAVER, lab, RT, psych nurse, social human services assistants, diffusion furnace operator, teacher, investigation officer, business case analyst)? Give summary @ -No Was smoking cessation discussed for >3mins.? @ -No Was critical care preformed (if so, how long)? @ -No Were there social determinants of health that impacted care today? How? (Homelessness, low income, unemployed, alcoholism, drug addiction, transportation, low edu. Level, literacy, decrease access to med. care, intermediate, rehab)? @ -No Was there de-escalation of care discussed even if they declined (Discuss DNR or withdrawal of care, Hospice)? DNR status @ -No What co-morbidities impacted this encounter? (DM, HTN, Smoking, COPD, CAD, Cancer, CVA, ARF, Chemo, Hep., AIDS, mental health diagnosis, sleep apnea, morbid obesity)? @ -Hypertension Was patient admitted / discharged? Hospital course, mention meds given and route, prescriptions, significant lab abnormalities, going to OR and other pertinent info. @ -Discharge 77-year-old female with a past medical history significant for hypertension presenting to the ED with a chief complaint of hypertension. Patient reports that while at home she was having some intermittent pain of her neck wrapping around to her torso however at this point is now resolved. States that she checked her blood pressure following this and noted to be in the 200s systolics prompting presentation to the ED for further evaluation. No chest pain or shortness of breath or palpitations. Currently has no complaints other than the high blood pressure. Laboratory studies reviewed. CBC largely unremarkable with some anemia hemoglobin at 10.7 however this appears to be near baseline. Chemistry panel largely unremarkable other than potassium at 3.1. This was repleted. Troponin undetectable. Serology panel negative. EKG here showed a sinus rhythm with no acute ST or T wave changes. Chest x-ray revealed no evidence of acute finding. Patient was provided enalaprilat with good control of high blood pressure. Discharged home in stable condition with instructions to follow-up with her PCP within the next few days. Patient also notes she has cardiology follow-up in 2 weeks. Discussed return precautions with patient who verbalized agreement. Undiagnosed new problem with uncertain prognosis? @ -No Drug Therapy requiring intensive monitoring for toxicity (Heparin, Nitro, Insulin, Cardizem)? @ -No Were any procedures done? @ -No Diagnosis/symptom? @ -Hypertension Acute, or Chronic, or Acute on Chronic? @ -Acute Uncomplicated (without systemic symptoms) or Complicated (systemic symptoms)? @ -Uncomplicated Side effects of treatment? @ -No Exacerbation, Progression, or Severe Exacerbation? @ -No Poses a threat to life or bodily function? How? (Chest pain, [place], [place], pneumonia, PE, COPD, DKA, ARF, appy, cholecystitis, CVA, Diverticulitis, Homicidal, Suicidal, threat to staff... and all critical care pts) @ -No Disposition Clinical Impression: Hypertensive urgency Disposition: HOME SELF-CARE Condition: Good Instructions (If sedation given, give patient instructions): Hypertensive Crisis (ED) Additional Instructions: Please return to the Emergency Department if symptoms worsen or any other concerns. Please follow-up with your primary care and informatics nurse specialist. Is patient prescribed a controlled substance at d/c from ED?: No Referrals: Giovanni Hanks DO [Primary Care Provider] - 1-2 days Time of Disposition: 19:11
[2023-08-30] MEDS: POTASSIUM CHLORIDE ER 20 MEQ TAB.ER PO STA (19:09)
[2023-08-30] MEDS: ENALAPRILAT 1.25 MG/ML 1 ML VIAL IVP STA (19:09)
[2023-08-30 20:18] VITALS: BP 173/87; PULSE 63; RESP 16
== END 2023-08-30 20:09 | disposition home or self-care (01) ==
LOC: EC 15:13
DX: I16.0 Hypertensive urgency (principal); F17.200 Nicotine dependence, unspecified, uncomplicated; Z88.8 Allergy status to other drugs, medicaments and biological substances
CPT/HCPCS: 36415; 71046; 80053; 83735; 84484; 85025; 85610; 85730; 87636; 93005; 96374; 99285

== ENCOUNTER 2023-11-30 10:04 | Day surgery (SDC) | payer MEDICARE ==
[~2023-11-30 10:04] MED LIST changes: +ALPRAZolam 0.25 MG TAB PO PRN; +ALPRAZolam 0.5 MG TAB PO PRN; +ASPIRIN 325 MG TAB PO STA; -DEXAMETHASONE SOD PHOSPHATE 4 MG/ML 1 ML VIAL IV ONE; +HEPARIN SODIUM,PORCINE (1 ML) 2,500 UNIT in SODIUM CHLORIDE 0.9% 250 ML IRRIGATION PRN; +HEPARIN SODIUM,PORCINE 10,000 UNIT in SODIUM CHLORIDE 0.9% 1,000 ML IRRIGATION PRN; -HYDROmorphone 0.5 MG/0.5 ML SYRINGE IVP PRN; -LACTATED RINGERS 1,000 ML IV SCH; -MIDAZOLAM 2 MG/2 ML VIAL IV PRN; +NITROGLYCERIN SL TABS 0.4 MG TAB SUBLINGUAL PRN; -ONDANSETRON 4 MG/2 ML VIAL IVP ONE
[2023-11-30 10:27] VITALS: RESP 18; TEMP 97.9
[2023-11-30 10:27] LABS: Glucose,Whole Blood 123 mg/dL (70-110)
[2023-11-30] MEDS: SODIUM CHLORIDE 0.9% 1,000 ML in EMPTY BAG 1 BAG IV SCH (10:27)
[2023-11-30] MEDS: IV FLUID CONTINUATION 1,000 ML IV ONE (10:28)
[2023-11-30 10:35] LABS: Basophils % (A) 1 %; Eosinophils # (A) 0.2 k/uL (0-0.7); Eosinophils % (A) 3 %; HCT 37.9 % (34.0-46.0); HGB 11.8 gm/dL (11.4-16.0); Lymphocytes # (A) 1.6 k/uL (1.0-4.8); Lymphocytes % (A) 26 %; MCH 27.2 pg (25.0-35.0); MCHC 31.1 g/dL (31.0-37.0); MCV 87.7 fL (80.0-100.0); Mean Platelet Volume 8.6; Monocytes # (A) 0.4 k/uL (0-1.0); Monocytes % (A) 6 %; Neutrophils # (A) 3.7 k/uL (1.3-7.7); Neutrophils % (A) 62 %; Platelet Count 110 k/uL (150-450); RBC 4.32 m/uL (3.80-5.40); RDW 15.4 % (11.5-15.5); WBC 5.9 k/uL (3.8-10.6)
[2023-11-30] MEDS ORDERED: VERAPAMIL 2.5 MG/ML 2 ML AMP ONE (10:36)
[2023-11-30] MEDS ORDERED: LIDOCAINE 1% INJ 10MG/ML (20 ML MDV) ONE (10:37)
[2023-11-30] MEDS ORDERED: fentaNYL (PF) 50 MCG/ML 2 ML AMP ONE (10:39)
[2023-11-30] MEDS ORDERED: HEPARIN SODIUM 1,000 UN/ML (10ML VL) ONE (10:39)
[2023-11-30] MEDS: LIDOCAINE 1% INJ 10MG/ML (20 ML MDV) SQ ONE (10:48)
[2023-11-30] MEDS: MIDAZOLAM 2 MG/2 ML VIAL IVP ONE (10:48)
[2023-11-30] MEDS: fentaNYL (PF) 50 MCG/ML 2 ML AMP IVP ONE (10:48)
[2023-11-30] MEDS: IOPAMIDOL-370 200ML BTL INJ ONE (11:16)
[2023-11-30] MEDS ORDERED: RX INFO: IV CONTRAST WAS GIVEN 1 EACH MISC MISCELLANE PRN (11:16)
--- NOTE | 2023-11-30 11:21 | P.PCN ---
Date of Procedure: 11/30/23 Operative Findings: CARDIAC CATHETERIZATION PERFORMING PHYSICIAN: Rip Murray MD, RPVI PROCEDURE PERFORMED: 1. Selective right and left coronary angiogram 2. Left heart catheterization 3. Ultrasound-guided access of the right radial artery and right common femoral artery angiogram INDICATION: Symptomatic 78-year-old female patient who underwent myocardial perfusion imaging stress test came in to be abnormal showing at least moderate area of reversibility anteriorly and beside that she does have multiple risk factors COMPLICATION: None APPROACH: Right radial artery LEVEL OF SEDATION: Moderate with a sedation length of 20 minutes PROCEDURE DESCRIPTION: After obtaining an informed consent, the patient was brought to cardiac general production laborer. Local anesthesia was performed using lidocaine subcutaneously. The right radial artery was cannulated using Seldinger technique, the guidewire passed ea sily, following that we advanced a 5-Hungarian sheath dilator assembly, the wire and dilator were removed and sheath was flushed. Attempting advancing the catheter which was JR4 from the right radial approach was unsuccessful because of severe spasm and the artery was too small to start with and at that point I decided to access the right common femoral artery. The right common femoral artery was cannulated using micropuncture technique the micropuncture wire passed easily then I placed a 6 Hungarian sheath. I did selective right and left coronary angiogram using JR4 and JL 4 catheters and then left heart catheterization using 6 Hungarian pigtail catheter. The procedure was completed with no complication SELECTIVE CORONARY ANGIOGRAM: The right coronary artery: Large-caliber vessel and a dominant vessel and calcified vessel with diffuse moderate disease in the proximal and midportion and severe focal lesion distally Left main: Calcified with mild disease only The left circumflex: Large-caliber vessel and nondominant vessel with severe disease in the proximal portion and also severe disease involving OM 2 The left anterior descending artery: The proximal LAD appears to have mild disease only. The mid LAD has a long tubular lesion calcified appears to be in the range of 70 to 80% HEMODYNAMICS: The LVEDP was 15 mmHg with no significant gradient across aortic valve CONCLUSION: 1. Extremely calcified right and left coronary system 2. Severe triple-vessel coronary artery disease 3. Normal left-sided filling pressure POSTPROCEDURE MANAGEMENT: Evaluate the patient for open heart and obtain a surgical opinion
[2023-11-30] MEDS ORDERED: SODIUM CHLORIDE 0.9% 1,000 ML IV SCH (11:30)
--- NOTE | 2023-11-30 13:28 | P.GSCN ---
History of Present Illness Consult date: 11/30/23 Reason for Consult: Triple-vessel coronary artery disease Requesting physician: Rip Murray History of present illness: This is a 78-year-old female who follows outpatient with Dr. Hanks for primary care and Dr. Murray for cardiology. She has a previous medical history of hypertension, hyperlipidemia, insulin-dependent diabetes, nonalcoholic liver cirrhosis, current tobacco dependence, chronic anemia, and family history of coronary artery disease. She was admitted to [facility] in August for hypertensive urgency. The patient denies chest pain but has been having shortness of breath for years although she continues to smoke. She had a myocardial perfusion stress test which was abnormal with reversability anteriorly. She did have a transthoracic echo completed at [facility] 10/28/23 demonstrating normal LV systolic function with EF 55-60%, mild aortic stenosis, mild to moderate mitral regurgitation, and mild tricuspid regurgitation with moderate pulmonary hypertension. Due to abnormal stress test she was recommended to undergo heart catheterization which was completed today by Dr. Murray and which demonstrated moderate proximal and mid RCA disease with severe distal disease, mid LAD 70-80% stenosis, and severe proximal circumflex and second obtuse marginal disease. Consultation was placed to cardiothoracic surgery for surgical revascularization recommendations. Review of Systems ROS was completed and was negative except as noted - Cardiovascular Reports as per HPI, Reports dyspnea on exertion, Reports shortness of breath - Musculoskeletal Musculoskeleta Comment(s): peripheral neuropathy Reports myalgias Past Medical History Past Medical History: Coronary Artery Disease (CAD), Chest Pain / Angina, Heart Failure, Diabetes Mellitus, GERD/Reflux, GI Bleed, Hypertension, Liver Disease, Sleep Apnea/CPAP/BIPAP Additional Past Medical History / Comment(s): anemia and has had several iron infusions/blood transfusions,past bleeding gastric ulcers, rectal bleed, nonalcoholic liver cirrhosis,,RLS, low back/L hip pain,. clausterphobia. insomnia, History of Any Multi-Drug Resistant Organisms: None Reported Past Surgical History: Hysterectomy, Orthopedic Surgery, Tonsillectomy Additional Past Surgical History / Comment(s): Hemorrhagic cyst removed from right ureter; Right foot surgery d/t crush injury; Left hip pain stimulator im planted, Steel iris in right arm, EGDs/colonoscopies, bone marrow aspirations, low back and cervical injections for pain, bilateral cataract removals with lens implants. Right middle and ring finger trigger release. Past Anesthesia/Blood Transfusion Reactions: No Reported Reaction, Motion Sickness Additional Past Anesthesia/Blood Transfusion Reaction / Comm: Pt has had several blood transfusions without reaction. Pt has clausterphobia. Past Psychological History: No Psychological Hx Reported Smoking Status: Current every day smoker Past Alcohol Use History: None Reported Past Drug Use History: None Reported - Past Family History Father Additional Family Medical History / Comment(s): Father was an alcoholic but was sober for the last 9 yrs of his life. Mother Family Medical History: Coronary Artery Disease (CAD), Diabetes Mellitus Additional Family Medical History / Comment(s): Low hgb. She during a colonoscopy. She had 4 vessel CABG Sister(s) Additional Family Medical History / Comment(s): heart stent Medications and Allergies Home Medications Medication Instructions Recorded Confirmed Type Insulin Detemir (Levemir) [Levemir] 79 unit SQ 0800 05/14/17 11/30/23 History Esomeprazole Magnesium [NexIUM] 40 mg PO DAILY 02/21/18 11/30/23 History HYDROcodone/APAP 10-325MG [[place] 1 tab PO Q6HR PRN 3 Days #12 tab 02/19/21 11/30/23 Rx 10-325] Cyclobenzaprine [Flexeril] 10 mg PO HS 07/15/21 11/30/23 History Pramipexole [Mirapex] 1 mg PO HS 10/15/21 11/30/23 History Atorvastatin [Lipitor] 40 mg PO HS 12/18/21 11/30/23 History Gabapentin 300 mg PO HS 12/18/21 11/30/23 History Aspirin [Adult Low Dose Aspirin EC] 81 mg PO DAILY 08/12/22 11/30/23 History Losartan [Cozaar] 25 mg PO HS 08/12/22 11/30/23 History carvediloL 25 mg PO BID 08/12/22 11/30/23 History Insulin Detemir (Levemir) [Levemir] 60 unit SQ HS 11/26/23 11/30/23 History amLODIPine BESYLATE [Amlodipine 10 mg PO DAILY 11/26/23 11/30/23 History Besylate] traZODone HCL [Desyrel] 50 mg PO HS 11/26/23 11/30/23 History Allergies Allergy/AdvReac Type Severity Reaction Status Date / Time pentazocine [From [place]] Allergy Hallucinati Verified 11/30/23 10:16 ons Surgical - Exam Vital Signs Temp Pulse Resp BP Pulse Ox 97.9 F 67 18 175/74 97 11/30/23 10:23 11/30/23 10:23 11/30/23 10:23 11/30/23 10:23 11/30/23 10:23 CONSTITUTIONAL: Awake and alert, appears comfortable, cooperative, well- developed, well-nourished, no pain, no acute distress EYES: Pupils equal, round, reactive to light, normal ocular movement ENT: Moist mucous membranes without oral lesions present NECK: No masses, no bruits, trachea midline RESPIRATORY: Lungs sounds clear to auscultation bilaterally. Respirations even, nonlabored. Currently on room air with oxygen saturation 98%. Strong cough. No chest wall deformities. No clubbing or cyanosis present CARDIOVASCULAR: S1, S2 present. Regular rate and rhythm, sinus rhythm on telemetry. Palpable peripheral pulses bilaterally. Bilateral lower extremity edema present. No calf pain or tenderness noted. No significant lower extremity varicosities noted. GASTROINTESTINAL: Abdomen soft, nontender, nondistended, obese without masses or organomegaly noted. There is no rebound or guarding present. Active bowel sounds present 4 quadrants. GENITOURINARY: Deferred INTEGUMENTARY: Skin is warm and dry with evidence of good perfusion. NEUROLOGIC: Cranial nerves II through XII intact, normal coordination, no obvious motor or sensory deficits, speech is normal MUSKULOSKELETAL: Able to move all extremities, strength equal bilaterally, normal posture PSYCHIATRIC: Alert and oriented to person place and time, appropriate affect, intact judgment and insight CLINICAL FRAILTY SCORE 5 Results - Labs 11/30/23 10:15 Abnormal Lab Results - Last 24 Hours (Table) 11/30/23 11/30/23 Range/Units 10:15 10:22 Plt Count 110 L (150-450) k/uL POC Glucose (mg/dL) 123 H (70-110) mg/dL - Imaging CT scan - chest: image reviewed Additional studies: Heart catheterization films were reviewed with Dr. Null Assessment and Plan Assessment: Triple-vessel coronary artery disease Hypertension with recent admission for hypertensive emergency Hyperlipidemia, cholesterol 149, LDL 82 Insulin-dependent diabetes, hemoglobin A1c 9% Nonalcoholic liver cirrhosis, MELD score 8, child Moreau score 6, class A Current tobacco dependence Chronic anemia Family history of coronary artery disease Plan: The patient was seen and examined at the bedside with Dr. Null. Favian cabrera/diagnostics reviewed. The usual course of open-heart surgery was discussed in detail with the patient and her , risks and benefits were reviewed, all questions were answered. Preoperative testing initiated. Once completed we will calculate STS risk score and discussed with the patient. Patient's respiratory status and liver disease status may make patient high risk for surgery, further decisions to be made once bedside spirometry completed. Smoking cessation counseling and education were offered, if we are to proceed with surgery patient really needs to quit smoking preoperatively. In addition, would recommend optimization of her diabetes with recent hemoglobin A1c 9% indic ating lack of control of her diabetes. Risk factor modification reviewed and encouraged. More recommendations to follow once testing has been completed. Thank you Dr. Murray for this consult. I have personally seen and examined the patient, performed the documentation and the assessment and plan as written. Number of minutes spent on the visit: 30. JABARI Spence
--- NOTE | 2023-11-30 14:19 | US ---
EXAMINATION TYPE: US vein mapping BILAT DATE OF EXAM: 11/30/2023 1:45 PM COMPARISON: NONE CLINICAL INDICATION: Female, 78 years old with history of preop cardiac surgery; SIDE PERFORMED: TECHNIQUE: Lower extremity saphenous vein is examined and measured utilizing real time linear array sonography. Patient History: Smoker: Unknown Heart Disease: Yes Previous DVT: No Vascular Surgery: Unknown Discoloration: No Hypertension: No Diabetes: Unknown Paralysis: No Varicosities: No Edema: Yes, at ankles DUPLEX FINDINGS: Greater Saphenous: Color flow seen Lesser Saphenous: Color flow seen Measurements in mm: Right Greater Saphenous: Groin: 6.4 x 4.8 mm High Thigh: 3.1 x 3.3 mm Mid Thigh: 2.8 x 3.2 mm Above Knee: 2.8 x 2.4 mm Knee: 2.2 x 1.8 mm Below Knee: 2.5 x 1.5 mm Mid Calf: 2.1 x 1.4 mm At Ankle: 1.5 x 1.4 mm Left Greater Saphenous: Groin: 5.9 x 5.8 mm High Thigh: 3.7 x 3.3 mm Mid Thigh: 2.4 x 2.6 mm Above Knee: 2.3 x 2.3 mm Knee: 2.2 x 2.1 mm Below Knee: 2.1 x 2.1 mm Mid Calf: 1.9 x 1.5 mm At Ankle: 1.5 x 1.2 mm IMPRESSION: 1. Bilateral GSV measurements listed above. 2. Performing surgeon to determine viability as conduit.
--- NOTE | 2023-11-30 14:19 | US ---
EXAMINATION TYPE: US carotid duplex BILAT DATE OF EXAM: 11/30/2023 COMPARISON: NONE CLINICAL INDICATION: Female, 78 years old with history of preop cardiac surgery; No hx tia or stroke TECHNIQUE: Carotid duplex ultrasound examination. Indirect Doppler criteria was utilized. FINDINGS: EXAM MEASUREMENTS: RIGHT: Peak Systolic Velocity (PSV) cm/sec ----- Right CCA: 48.1 ----- Right ICA: 62.5 ----- Right ECA: 41.0 ICA/CCA ratio: 1.3 RIGHT: End Diastole cm/sec ----- Right CCA: 11.1 ----- Right ICA: 12.0 ----- Right ECA: 0.0 LEFT: Peak Systolic Velocity (PSV) cm/sec ----- Left CCA: 43.1 ----- Left ICA: 78.2 ----- Left ECA: 81.6 ICA/CCA ratio: 1.8 LEFT: End Diastole cm/sec ----- Left CCA: 9.0 ----- Left ICA: 14.5 ----- Left ECA: 0.8 VERTEBRALS (direction of flow): Right Vertebral: Antegrade Left Vertebral: Antegrade Rhythm: Normal CONTRACT SPECIALIST NOTES: Plaque in bilateral bulbs. No elevated velocities. IMPRESSION: No evidence for hemodynamically significant stenosis Criteria for Assigning % of Stenosis / Diameter reduction (Estimation based on the indirect measurements of the internal carotid artery velocities (ICA PSV). 1. Normal (no stenosis)=ICA PSV < 125 cm/s: ratio < 2.0: ICA EDV<40 cm/s. 2. Less than 50% stenosis=ICA PSV < 125 cm/s: ratio < 2.0: ICA EDV<40 cm/s. 3. 50 to 69% stenosis=ICA PSV of 125 to 230 cm/s: ration 2.0 ? 4.0: ICA EDV 40-100 cm/s. 4. Greater than 70% stenosis to near occlusion= ICA PSV > 230 cm/s: ratio > 4.0: ICA EDV > 100 cm/s. 5. Near occlusion= ICA PSV velocities may be low or undetectable: variable ratio and ICA EDV. 6. Total occlusion=unable to detect flow.
[2023-11-30 16:39] VITALS: BP 138/64; PULSE 62
[2023-11-30] MEDS: ACETAMINOPHEN TAB 500 MG TAB PO STA (16:42)
--- NOTE | 2023-12-08 15:28 | P.PN ---
Progress Note - Text Progress Note Date: 12/08/23 Mrs oJhnston is a 78 year-old F with a hx of HTN, HLD, DM, LOPEZ, and tobacco use who presented to the hospital with hypertensive urgency. She underwent cardiac work-up which reveals significant 3v CAD. Please refer to the note dated 11/30/23 for complete details regarding the consult. She underwent pre-operative work-up which all looks within normal limits. We discussed options today regarding revascularization. I told her I was worried about her lung and her liver. She has been actively cutting down on the smoking and is down to 11 cigarettes a day. She has never had any stigmata of cirrhosis such as ascites or varices. She was given that diagnosis 25 years ago in [place]. She see's Dr. Abraham for her LOPEZ. Her current calculated MELD is 8. I recommended CABG. We discussed the risks which include bleeding, infection, renal failure, stroke, pneumonia, respiratory failure and . She is in agreement to proceed. Prior to surgery we need her optimized from a pulmonary standpoint and she will quit smoking. We will also get Dr. Abraham's opinion on her liver disease which appears to be mild.
== END 2023-11-30 16:48 | disposition home or self-care (01) ==
LOC: CATHCVL 10:04
PROVIDERS: ATTEND Internal Medicine Interventional Cardiology
DX: I08.3 Combined rheumatic disorders of mitral, aortic and tricuspid valves (principal); I25.10 Atherosclerotic heart disease of native coronary artery without angina pectoris; G25.81 Restless legs syndrome; G47.30 Sleep apnea, unspecified; I11.0 Hypertensive heart disease with heart failure; I16.0 Hypertensive urgency; I50.9 Heart failure, unspecified; I27.20 Pulmonary hypertension, unspecified; K21.9 Gastro-esophageal reflux disease without esophagitis; K74.60 Unspecified cirrhosis of liver; E78.5 Hyperlipidemia, unspecified; D64.9 Anemia, unspecified; E11.9 Type 2 diabetes mellitus without complications; F17.200 Nicotine dependence, unspecified, uncomplicated; Z79.4 Long term (current) use of insulin; Z90.710 Acquired absence of both cervix and uterus; Z79.899 Other long term (current) drug therapy; Z79.84 Long term (current) use of oral hypoglycemic drugs
CPT/HCPCS: 93458; 85025; 93970; 93880; C1769 ×2; C1894 ×2; J2250; J2001; J3010; Q9967

== ENCOUNTER → 2023-12-17 | Outpatient (CLI) | payer MEDICARE ==
--- NOTE | 2023-12-18 15:18 | CA ---
Transthoracic Echo Report Name: Theresa Johnston Age: 78 Gender: F : 1945 Exam Date: 12/17/2023 17:08 Exam Location: [facility] Ht (in): 60 Wt (lb): 175 Ordering Physician: Cedric Null MD Attending/Referring Phys: Neon Sign Erector Tammy Fagan RDCS Procedure CPT: Indications: I34.0 Nonrheumatic mitral valve insufficiency Cardiac Hx: Technical Quality: Good Contrast 1: Total Dose (mL): Contrast 2: Total Dose (mL): MEASUREMENTS (Male / Female) Normal Values 2D ECHO LV Diastolic Diameter PLAX 4.2 cm 4.2 - 5.9 / 3.9 - 5.3 cm LV Systolic Diameter PLAX 3.0 cm IVS Diastolic Thickness 1.2 cm 0.6 - 1.0 / 0.6 - 0.9 cm LVPW Diastolic Thickness 1.1 cm 0.6 - 1.0 / 0.6 - 0.9 cm LV Relative Wall Thickness 0.6 RV Internal Dim ED PLAX 3.5 cm LVOT Diameter 2.1 cm LA Systolic Diameter LX 4.0 cm 3.0 - 4.0 / 2.7 - 3.8 cm LV Diastolic Volume MOD 2C 97.3 cm??? LV Systolic Volume MOD 2C 45.7 cm??? LV Ejection Fraction MOD 2C 53.0 % LV Cardiac Index MOD 2C 1931.7 cm???/min???m??? LV Diastolic Length 2C 7.6 cm LV Systolic Length 2C 6.5 cm LA Volume 83.1 cm??? 18 - 58 / 22 - 52 cm??? LA Volume Index 44.4 cm???/m??? 16 - 28 cm???/m??? M-MODE Aortic Root Diameter MM 2.9 cm AV Cusp Separation MM 1.5 cm DOPPLER AV Peak Velocity 234.9 cm/s AV Peak Gradient 22.1 mmHg AV Mean Velocity 153.1 cm/s AV Mean Gradient 10.8 mmHg AV Velocity Time Integral 52.9 cm LVOT Peak Velocity 148.9 cm/s LVOT Peak Gradient 8.9 mmHg LVOT Velocity Time Integral 34.6 cm LVOT Stroke Volume 123.1 cm??? LVOT Stroke Volume Index 69.8 ml/m??? LVOT Cardiac Index 4607.0 cm???/min???m??? AV Area Cont Eq vti 2.3 cm??? AV Area Cont Eq pk 2.3 cm??? MV Peak Velocity 159.1 cm/s MV Peak Gradient 10.1 mmHg MV Mean Velocity 91.7 cm/s MV Mean Gradient 3.9 mmHg MV Velocity Time Integral 51.6 cm MV Area PHT 2.3 cm??? Mitral E Point Velocity 124.1 cm/s Mitral A Point Velocity 113.8 cm/s Mitral E to A Ratio 1.1 MV Deceleration Time 326.4 ms TR Peak Velocity 288.9 cm/s TR Peak Gradient 33.4 mmHg Right Ventricular Systolic Press 48.4 mmHg FINDINGS Left Ventricle Left ventricular ejection fraction is estimated at 55-60 %. Left ventricular cavity size normal. Mildly increased septal wall thickness. Mildly increased posterior wall thickness. No obvious regional wall motion abnormalities. Right Ventricle Mild right ventricular dilatation. Moderate pulmonary hypertension. Right ventricular systolic pressure estimated at 48 mm hg. Right Atrium Normal right atrial size. No right atrial thrombus or mass seen. Left Atrium Mildly increased left atrial diameter. Severely increased left atrial volume. Mildly increased left atrial area. Mitral Valve Mitral valve thickened. Mild mitral annular calcification. Mildly decreased mobility of the posterior mitral valve leaflet. Aortic Valve Trileaflet aortic valve. Diffuse thickening of the aortic valve cusps with reduced excursion. Mild aortic stenosis with a peak gradient of 22 mmHg and a mean gradient of 11 mmHg. No aortic regurgitation. Tricuspid Valve Structurally normal tricuspid valve. Mild tricuspid regurgitation. Pulmonic Valve Structurally normal pulmonic valve. Trace pulmonic regurgitation. Pericardium No pericardial effusion. No pleural effusion. Aorta Normal size aortic root and proximal ascending aorta. CONCLUSIONS Left ventricular ejection fraction 55-60% Mildly increased left ventricular wall thickness RVSP 48 Moderately dilated left atrium Mild mitral calcification Mild aortic stenosis with mean gradient 11 mmHg Mild tricuspid regurgitation Previewed by: Dr. Heladio Ang DO (Electronically Signed) Final Date: 18 December 2023 15:18
== END | disposition home or self-care (01) ==
LOC: RADECHMAIN 16:51
PROVIDERS: ATTEND Thoracic Surgery (Cardiothoracic Vascular Surgery)
DX: I34.0 Nonrheumatic mitral (valve) insufficiency (principal); I08.3 Combined rheumatic disorders of mitral, aortic and tricuspid valves
CPT/HCPCS: 93306

== ENCOUNTER → 2023-12-25 | Outpatient (CLI) | payer MEDICARE ==
[2023-12-25 09:40] LABS: INR 1.2 (<1.2); Partial Thromboplastin Time 30.7 sec (22.0-30.0); Prothrombin Time 12.6 sec (10.0-12.5)
--- NOTE | 2023-12-25 12:25 | US ---
EXAMINATION TYPE: Pre-Operative Non-Invasive Evaluation of the hand for Potential Radial Artery Neida , Measurements only DATE OF EXAM: 12/25/2023 11:18 AM CLINICAL INDICATION: Female, 78 years old with history of OPEN HEART; SIDE PERFORMED: Bilateral TECHNIQUE: Radial artery is measured utilizing real time linear array sonography. Dominant hand: Right Duplex Findings: Radial Artery: Color flow seen Measurements in mm, transverse view: Right Radial: Antecubital: 1.9 x 2.3 mm Mid: 2.3 x 2.0 mm Distal: 2.5 x 1.8 mm -Right radial proximal to antecub not well seen due to small size, unable to visualize origin Left Radial: Proximal: 2.3 x 1.8 mm Mid: 1.7 x 1.5 mm Distal: 1.5 x 1.7 mm IMPRESSION: 1. Bilateral Radial artery measurements listed above. 2. Performing surgeon to determine viability as conduit.
--- NOTE | 2023-12-25 12:26 | US ---
EXAMINATION TYPE: US arterial LE single level DATE OF EXAM: 12/25/2023 11:00 AM CLINICAL INDICATION: Female, 78 years old with history of OPEN HEART; History of: Smoker: Previous Hypertension: Takes medication Diabetic: N/A Hyperlipidemia: N/A TIA/CVA: N/A Previous Vascular Surgery: No CAD: Yes Vascular Ulcers: No Gangrene: No Doppler Waveforms: Right: Monophasic Left: Monophasic Right Brachial Pressure: 193 Left Brachial Pressure: 172 Bilateral BP taken x2 Ankle-Brachial Indices: Right: 1.1 Left: 1.1 (Vessel hardening > 1.4; Normal 0.9 - 1.4, Moderate 0.7 - 0.9, Severe 0.5-0.7) IMPRESSION: Normal ankle brachial indices bilaterally.
[2023-12-25 15:28] LABS: HCT 33.1 % (37.2-46.3); HGB 10.4 g/dL (12.0-15.0); MCH 26.9 pg (27.0-32.0); MCHC 31.4 g/dL (32.0-37.0); MCV 85.5 FL (80.0-97.0); Mean Platelet Volume 11.5 FL (9.5-12.2); NRBC Per 100 WBC 0 X 10*3/uL (0.00-0.01); Platelet Count 94 X 10*3/uL (140-440); RBC 3.87 X 10*6/uL (4.10-5.20); RDW 14.7 % (11.5-14.5); WBC 4.94 X 10*3/uL (4.50-10.00)
[2023-12-25 15:29] LABS: ALT 20 U/L (8-44); AST 35 U/L (13-35); Albumin 3.6 g/dL (3.8-4.9); Albumin/Globulin Ratio 1.03 Ratio (1.60-3.17); Alkaline Phosphatase 127 U/L (41-126); BUN/Creat Ratio 14.22 Ratio (12.00-20.00); Blood Urea Nitrogen 12.8 mg/dL (9.0-27.0); Calcium 8.7 mg/dL (8.7-10.3); Carbon Dioxide 23.9 mmol/L (21.6-31.8); Chloride 103 mmol/L (96-109); Globulin 3.5 g/dL (1.6-3.3); Glucose 206 mg/dL (70-110); Magnesium 1.3 mg/dL (1.5-2.4); Potassium 4.3 mmol/L (3.5-5.5); Sodium 137 mmol/L (135-145); Total Bilirubin 0.4 mg/dL (0.3-1.2); Total Protein 7.1 g/dL (6.2-8.2)
[2023-12-25 15:47] LABS: Appearance,Urine Clear (Clear); Bilirubin,Urine Negative (Negative); Blood,Urine Negative (Negative); Color,Urine Yellow (Yellow); Ketones,Urine Negative (Negative); Nitrite,Urine Negative (Negative); PH, Urine 5.5
[2023-12-25 15:48] LABS: Hepatitis A Antibody IgM Nonreactive (Nonreactive); Hepatitis B Core IgM Nonreactive (Nonreactive); Hepatitis B Surface Antigen Nonreactive (Nonreactive); Hepatitis C IgG Antibody Nonreactive (Nonreactive)
[2023-12-25 16:22] LABS: Bacteria,Urine 1+ (None Seen); Yeast (UA) Present (None Seen)
== END | disposition home or self-care (01) ==
LOC: LABWHC1 08:49
PROVIDERS: ATTEND Thoracic Surgery (Cardiothoracic Vascular Surgery)
DX: Z01.810 Encounter for preprocedural cardiovascular examination (principal); I10 Essential (primary) hypertension; Z87.891 Personal history of nicotine dependence
CPT/HCPCS: 36415; 80053; 80074; 81001; 83735; 85027; 85610; 85730; 86850; 86900; 86901; 86920; 87070; 87086; 93922; 93930

== ENCOUNTER 2023-12-30 08:00 | Inpatient (IN) | payer MEDICARE ==
--- NOTE | 2023-12-27 09:37 | P.PN ---
Progress Note - Text Progress Note Date: 12/25/23 5 meter walk test completed: #1 5.18 seconds #2 4.90 seconds #3 4.45 seconds Patient tolerated without difficulty
[2023-12-31] MEDS: ATORVASTATIN 10 MG TAB PO ONE (06:24)
[2023-12-31] MEDS: METOPROLOL TARTRATE 12.5 MG TAB PO ONE (06:24)
[2023-12-31] MEDS: LACTATED RINGERS 1,000 ML IV SCH (06:27)
[2023-12-31] MEDS: LIDOCAINE 1% (10MG/ML) FOR IV START INTRADERMA PRN (06:27)
[2023-12-31] MEDS: IV FLUID CONTINUATION 1,000 ML IV ONE (06:30)
[2023-12-31 06:49] LABS: Glucose,Whole Blood 214 mg/dL (70-110)
[2023-12-31] MEDS ORDERED: HYDROmorphone 0.5 MG/0.5 ML SYRINGE IVP PRN (07:00)
[2023-12-31 07:40] LABS: Glucose,Whole Blood 132 mg/dL (70-110)
[2023-12-31] MEDS ORDERED: INSULIN REGULAR 100 UNIT/ML VIAL (IV) ONE (07:50)
[2023-12-31] MEDS ORDERED: fentaNYL (PF) 50 MCG/ML 50 ML VIAL ONE (07:50)
[2023-12-31] MEDS ORDERED: PHENYLEPHRINE-0.9% NACL SYG 1,000 MCG/10 ML SYRINGE ONE (07:50)
[2023-12-31] MEDS ORDERED: FUROSEMIDE 10 MG/ML 2 ML VIAL ONE (07:50)
[2023-12-31] MEDS ORDERED: VECURONIUM 10 MG VIAL IV ONE (07:50)
[2023-12-31] MEDS ORDERED: GLYCOPYRROLATE 0.2 MG/ML 2 ML VIAL ONE (07:50)
[2023-12-31] MEDS ORDERED: PROPOFOL 10 MG/ML 20 ML VIAL IV ONE (07:50)
[2023-12-31] MEDS ORDERED: PHENYLEPHRINE 10 MG/ML VIAL ONE (07:50)
[2023-12-31] MEDS ORDERED: HEPARIN SODIUM,PORCINE 10,000 UNIT/ML 1 ML VIAL ONE (07:50)
[2023-12-31] MEDS ORDERED: MIDAZOLAM HCL 10 MG/10 ML VIAL ONE (07:50)
[2023-12-31] MEDS ORDERED: CALCIUM CHLORIDE 100 MG/ML 10 ML SYRINGE ONE (07:50)
[2023-12-31] MEDS ORDERED: ALBUMIN HUMAN 5% (25gm) 500 ML VIAL IVPB ONE (07:50)
[2023-12-31] MEDS ORDERED: SUCCINYLCHOLINE CHLORIDE 200 MG/10 ML VIAL IV ONE (07:50)
[2023-12-31 08:23] LABS: ABG Base Excess 2.5 mmol/L; ABG Glucose Whole Blood 112 mg/dL (75-99); ABG HCO3 27 mmol/L (21-25); ABG Hematocrit 26 % (34.0-46.0); ABG Ionized Calcium 4.9 mg/dL (4.5-5.3); ABG Oxygen Saturation >99.4 % (94-97); ABG PCO2 41 mmHg (35-45); ABG PH 7.43 (7.35-7.45); ABG PO2 208 mmHg (83-108); ABG Potassium Whole Blood 4.2 mmol/L (3.4-4.5); ABG Sodium Whole Blood 138 mmol/L (135-146); Allen Test Performed? Yes
--- NOTE | 2023-12-31 08:37 | P.ANPRN ---
Procedure Note - Anesthesia - Invasive Line Right Arterial Line Time Out Performed: Yes (0722) Date of Procedure: 12/31/23 Time of Procedure: 07:23 Location of Patient: Phase I Preparation: Sterile Prep, Sterile Dressing Arterial Line Location: Briachial (right) Ultrasound Used: Yes Purpose - Visualization and Identification of Vasculature: Yes Needle Guage: 20g Image Stored and Saved: Yes Narrative: Invasive line placement per sterile protocol utilized. lumens bled and flushed. Secured, Biopatch applied, dressing applied
--- NOTE | 2023-12-31 08:38 | P.ANPRN ---
Procedure Note - Anesthesia - Invasive Line Right Central Line Time Out Performed: Yes (0722) Date of Procedure: 12/31/23 Time of Procedure: 07:30 Location of Patient: Phase I Preparation: Sterile Prep, Sterile Dressing Central Line Location: Internal Jugular (right IJ Cordis) Ultrasound Used: Yes Purpose - Visualization and Identification of Vasculature: Yes Needle Guage: 18g angio Image Stored and Saved: Yes Narrative: Invasive line placement per sterile protocol utilized. Anesthesia note Procedure: Right internal jugular central venous catheter insertion: 8.5-[place] Cordis Sterile protocol followed. Right neck prepped. Ultrasound used. Lidocaine 1% used. Using ultrasound local anesthetic was instilled site over right Internal Jugular vein. Angiocath was used to gain access via ultrasound. Once free flow non-pulsatile blood flow was confirmed, 12 inch extension tubing was then placed on Angiocath. Once central venous pressure was confirmed, J-wire was then placed through Angiocath. Angiocath was then withdrawn. Local was instilled at J-wire site. Small skin tristian was then made with provided sterile scalpel. 8.5- [place] Cordis was then inserted over the wire while maintaining control of wire at all times. Uneventful insertion with dilation. Free flow nonpulsatile blood flow through Cordis. Hooked up to IV tubing. Secured with suture. Dressings applied. Drapes Removed. Attempts x1.
--- NOTE | 2023-12-31 08:38 | P.ANPRN ---
Procedure Note - Anesthesia - Invasive Line Right [place] Time Out Performed: Yes (0722) Date of Procedure: 12/31/23 Time of Procedure: 07:44 Location of Patient: Phase I Preparation: Sterile Prep, Sterile Dressing [place] Line Location: Internal Jugular (Right) Ultrasound Used: No Purpose - Visualization and Identification of Vasculature: No Image Stored and Saved: No Narrative: Invasive line placement per sterile protocol utilized. Anesthesia note Procedure right [place] catheter placed through right internal jugular central venous catheter Sterile protocol maintained from previous procedure. [place] catheter sterilely placed in sheath and flushed prior to insertion. After advancing 15 cm [place] catheter was then slowly inserted with balloon up. Advanced through CVP, RV to PA waveform. [place] catheter wedged around 51 cm. Balloon down. Catheter withdrawn 5 cm. . No wedge. Proximal and distal sites locked on sheath. Attempts x1. Sterile drapes removed and dressings applied.
--- NOTE | 2023-12-31 08:40 | P.ANPRN ---
Procedure Note - Anesthesia - KARIS Intraop Pre Bypass KARIS Intraop - Anesthesia Indication: Coronary artery disease Date of Procedure: 12/31/23 Pre-operative Diagnosis: coronary artery disease Post-operative Diagnosis: Coronary artery disease, tricuspid regurgitation, mitral regurgitation Surgeon: Cedric Null Left Ventricle: Mild LVH Ejection Fraction: Normal Regional Wall Motion Abnormalities: None Left Ventricle Hypertrophy: Yes (Mild) R. Ventricle Function: Normal Anatomy: Trileaflet Aortic Stenosis: None Aortic Regurgitation: None Mitral Stenosis: None Mitral Regurgitation: Trace Tricuspid Stenosis: None Tricuspid Regurgitation: Trace Pulmonic Stenosis: None Pulmonic Regurgitation: None R. Atrial Dilation: No R. Atrial PFO: No L. Atrial Dilation: No Aortic Dissection: No Aortic Calcification: None Plural Effusion: None
[2023-12-31] MEDS: HEPARIN SODIUM,PORCINE (1 ML) 5,000 UNIT in SODIUM CHLORIDE 0.9% 500 ML 500 ML IV ONE (08:53)
[2023-12-31] MEDS: ceFAZolin 1,000 MG in SODIUM CHLORIDE 0.9% IRRIGATIO 1,000 ML IRRIGATION ONE (08:53)
[2023-12-31] MEDS: PAPAVERINE 360 MG in SODIUM CHLORIDE 0.9% 90 ML IV ONE (08:54)
[2023-12-31 09:39] LABS: ABG Glucose Whole Blood 124 mg/dL (75-99); ABG HCO3 27 mmol/L (21-25); ABG Ionized Calcium 4.8 mg/dL (4.5-5.3); ABG PCO2 41 mmHg (35-45); ABG PH 7.43 (7.35-7.45); ABG PO2 280 mmHg (83-108); ABG Potassium Whole Blood 3.9 mmol/L (3.4-4.5); ABG Sodium Whole Blood 137 mmol/L (135-146); Allen Test Performed? Yes
[2023-12-31 10:11] LABS: ABG Base Excess 2.6 mmol/L; ABG Glucose Whole Blood 138 mg/dL (75-99); ABG HCO3 26 mmol/L (21-25); ABG Ionized Calcium 4.7 mg/dL (4.5-5.3); ABG Oxygen Saturation >99.4 % (94-97); ABG PCO2 35 mmHg (35-45); ABG PH 7.48 (7.35-7.45); ABG PO2 324 mmHg (83-108); ABG Potassium Whole Blood 3.7 mmol/L (3.4-4.5); ABG Sodium Whole Blood 137 mmol/L (135-146); Allen Test Performed? Yes
[2023-12-31 10:44] LABS: ABG Glucose Whole Blood 134 mg/dL (75-99); ABG HCO3 26 mmol/L (21-25); ABG Ionized Calcium 4.6 mg/dL (4.5-5.3); ABG Lactic Acid Whole Blood 1.2 mmol/L (0.5-1.6); ABG PCO2 36 mmHg (35-45); ABG PH 7.47 (7.35-7.45); ABG PO2 301 mmHg (83-108); ABG Potassium Whole Blood 3.5 mmol/L (3.4-4.5); ABG Sodium Whole Blood 137 mmol/L (135-146); Allen Test Performed? Yes
[2023-12-31 10:46] LABS: ABG Glucose Whole Blood 135 mg/dL (75-99); ABG HCO3 26 mmol/L (21-25); ABG Ionized Calcium 4.6 mg/dL (4.5-5.3); ABG Lactic Acid Whole Blood 1.2 mmol/L (0.5-1.6); ABG PCO2 37 mmHg (35-45); ABG PH 7.46 (7.35-7.45); ABG PO2 334 mmHg (83-108); ABG Potassium Whole Blood 3.7 mmol/L (3.4-4.5); ABG Sodium Whole Blood 137 mmol/L (135-146); Allen Test Performed? Yes
[2023-12-31] MEDS: ALBUMIN HUMAN 25% 50 ML IV ONE (10:46)
[2023-12-31] MEDS: CLEVIDIPINE BUTYRATE 25 MG in EMPTY BAG 1 BAG IV ONE (10:47)
[2023-12-31] MEDS: CALCIUM CHLORIDE 100 MG/ML 10 ML SYRINGE IV ONE (10:47)
[2023-12-31] MEDS: CHLORHEXIDINE GLUCONATE 15 ML CUP MUCOUS MEM ONE (10:47)
[2023-12-31] MEDS: ASPIRIN 325 MG TAB PO ONE (10:47)
[2023-12-31] MEDS: ALBUMIN HUMAN 5% 500 ML IVPB ONE (10:47)
[2023-12-31] MEDS: ELECTROLYTE-A SOLUTION 1,000 ML with POTASSIUM CHLORIDE 100 MEQ, MAGNESIUM SULFATE 16 M... IV ONE (10:48)
[2023-12-31] MEDS: DILTIAZEM 125 MG in SODIUM CHLORIDE 0.9% 100 ML IV ONE (10:48)
[2023-12-31] MEDS: ELECTROLYTE-A SOLUTION 1,000 ML with POTASSIUM CHLORIDE 40 MEQ, MAGNESIUM SULFATE 16 ME... IV ONE (10:48)
[2023-12-31] MEDS: MAGNESIUM SULFATE 16.24 MEQ in EMPTY SYRINGE 1 SYR IV ONE (10:49)
[2023-12-31] MEDS: HEPARIN SODIUM 1,000 UN/ML (10ML VL) IV ONE (10:49)
[2023-12-31] MEDS: LACTATED RINGERS 1,000 ML IV ONE (10:49)
[2023-12-31] MEDS: INSULIN REGULAR 100 UNIT in SODIUM CHLORIDE 0.9% 100 ML IV ONE (10:49)
[2023-12-31] MEDS: NITROGLYCERIN-D5W PMX 50 MG in DEXTROSE/WATER 1 250ML.BAG IV ONE (10:50)
[2023-12-31] MEDS: NITROGLYCERIN SL TABS 0.4 MG TAB SUBLINGUAL ONE (10:50)
[2023-12-31] MEDS: NITROGLYCERIN-D5W PMX 25 MG/250 ML BTL IV ONE (10:50)
[2023-12-31] MEDS: MANNITOL 25% 12.5 GM/50 ML VIAL IV ONE (10:50)
[2023-12-31] MEDS: NOREPINEPHRINE 4 MG in SODIUM CHLORIDE 0.9% 250 ML IV ONE (10:51)
[2023-12-31] MEDS: propofoL 1,000 MG/100 ML VIAL IV ONE (10:51)
[2023-12-31] MEDS: PHENYLEPHRINE 10 MG/ML VIAL IV ONE (10:51)
[2023-12-31] MEDS: PROTAMINE SULFATE 10 MG/ML 25 ML VIAL IV ONE (10:51)
[2023-12-31] MEDS: PHENYLEPHRINE 40 MG in SODIUM CHLORIDE 0.9% 250 ML IV ONE (10:51)
[2023-12-31] MEDS: PROTAMINE SULFATE 250 MG in EMPTY BAG 1 BAG IV ONE (10:51)
[2023-12-31] MEDS: droPERidol 5 MG/2 ML VIAL IVP ONE (10:52)
[2023-12-31] MEDS: SODIUM BICARB 8.4% 50 ML SYR (1 MEQ/ML) IV ONE (10:52)
[2023-12-31] MEDS: SODIUM CHLORIDE 0.9% 1,000 ML IV ONE (10:52)
[2023-12-31] MEDS: TRANEXAMIC ACID 2,000 MG in SODIUM CHLORIDE 0.9% 80 ML IV ONE (10:52)
[2023-12-31] MEDS: DEXAMETHASONE SOD PHOSPHATE 4 MG/ML 1 ML VIAL IV ONE (10:52)
[2023-12-31] MEDS: INSULIN REGULAR 100 UNIT/ML VIAL (IV) IV ONE (10:53)
[2023-12-31] MEDS: ONDANSETRON 4 MG/2 ML VIAL IVP ONE (10:53)
[2023-12-31 11:22] LABS: ABG Lactic Acid Whole Blood 1.6 mmol/L (0.5-1.6)
[2023-12-31 11:23] LABS: ABG Base Excess 2.6 mmol/L; ABG Hematocrit 23 % (34.0-46.0); ABG Lactic Acid Whole Blood 1.5 mmol/L (0.5-1.6); ABG Oxygen Saturation >99.4 % (94-97)
[2023-12-31 11:24] LABS: ABG Hematocrit 24 % (34.0-46.0); ABG Lactic Acid Whole Blood 1.4 mmol/L (0.5-1.6)
[2023-12-31 11:25] LABS: ABG Base Excess 2.2 mmol/L; ABG Hematocrit 23 % (34.0-46.0); ABG Oxygen Saturation >99.4 % (94-97)
[2023-12-31 11:52] LABS: ABG Base Excess 0.1 mmol/L; ABG Glucose Whole Blood 118 mg/dL (75-99); ABG HCO3 24 mmol/L (21-25); ABG Ionized Calcium 4.9 mg/dL (4.5-5.3); ABG Lactic Acid Whole Blood 1.9 mmol/L (0.5-1.6); ABG Oxygen Saturation >99.4 % (94-97); ABG PCO2 37 mmHg (35-45); ABG PH 7.43 (7.35-7.45); ABG PO2 322 mmHg (83-108); ABG Potassium Whole Blood 3.8 mmol/L (3.4-4.5); ABG Sodium Whole Blood 137 mmol/L (135-146); Allen Test Performed? Yes
[2023-12-31 12:06] LABS: ABG Hematocrit 23 % (34.0-46.0)
--- NOTE | 2023-12-31 12:45 | P.OP ---
Date of Procedure: 12/31/23 Preoperative Diagnosis: 3v CAD HTN HLD DM LOPEZ Postoperative Diagnosis: Same Procedure(s) Performed: 1. Off Pump Coronary Artery Bypass Grafting x 3. Left internal thoracic artery (in-situ) to left anterior descending coronary artery. Reverse saphenous vein from aorta to obtuse marginal artery #1. Reverse saphenous vein from aorta to distal coronary artery. 2. Left Atrial Appendage Ligation with #35mm AtriClip 3. Endoscopic bilateral greater saphenous vein harvest 4. Graft flow measurements using the medi-stim flow meter system 5. Trans-esophageal echo Implants: #35mm AtriClip Anesthesia: GETA Surgeon: Cedric Null Firewall Security Engineer #1: Mekhi Newell Firewall Security Engineer #2: Magdaleno Sepulveda Estimated Blood Loss (ml): 250 Pathology: none sent Condition: critical Disposition: ICU Indications for Procedure: This patient is a 78 year-old F with the PMH listed above who had an abnormal stress test. Follow-up angiography revealed significant 3v coronary artery disease. She was couseled on smoking cessation which she did and her STS risk of morbidity and mortality was discussed with the patient and she was in agreement to proceed with CABG. Operative Findings: SUZANNE 1.75mm good conduit. LAD 1.75mm good target. SUZANNE-LAD Flow 21ml/min, P.I. 2.5 Saphenous vein 2.5mm good conduit. Obtuse marginal 1.5mm good target. GSV-OM Flow 28ml/min, P.I. 4.6 Saphenous vein 2.5mm good conduit. RCA 1.75mm good target. GSV-RCA 29ml/min, P.I. 5.3 Description of Procedure: The patient underwent central line, arterial line, and [place] Pedro catheter placement in the pre-operative suite by the anesthesia team. The patient was then brought to the operating room and placed in the supine position. General anesthesia was induced and the patient was prepped from the chin to the ankles in the usual sterile fashion. A time-out was performed and antibiotics were given. A midline incision was made on the chest and carried down to bone. A median sternotomy was performed. Hemostasis on the bone was achieved using electrocautery. The left pleura was entered and the left internal thoracic artery was harvested in a skeletonized fashion. Simultaneously a physician assistant winemaker harvested the bilateral greater saphenous veins in an endoscopic fashion. The patient was systemically heparinized and the SUZANNE was transected and placed in a papaverine jacuzzi. A left sided chest tube was placed. The pericardium was incised in a reverse T-fashion and a pericardial cradle was created. The right pleura was opened. Stay sutures were placed. #35mm AtriClip was placed on the left atrial appendage. With ACT > 250, the octopus sabilizer was placed on the distal LAD which was a good target. An ateriorotomy was made and 1.75mm shunt inserted. An end to side anastomosis between the SUZANNE and LAD was performed using a running 7-0 prolene. The shunt was removed prior to tieing down the suture. Next stay sutures were placed on the diaphragm near the IVC and oblique sinus. The inferior wall was exposed and the distal right coronary artery was stabilized. The artery was opened it was a good target and 1.5mm flow through inserted. An end to side anastomosis between the saphenous vein and RCA was performed using a running 7-0 prolene again removing the shunt prior to tieing down the suture. Next the lateral wall was exposed and the first obtuse marginal artery was identified prior. The stabilizer was placed on the vessel and arteriorotomy was made. This vessel was a good target and 1.5mm flow through was inserted. An end to side anastomosis was created with the saphenous vein and obtuse marginal using a running 7-0 prolene. The flow through was removed prior to tieing down the suture. Next, the heartstring device was used to create aortotomy x 2. The saphenous veins were fastened to the ascending aorta using a running 5-0 prolene suture in an end to side fashion x 2. The heartstring device was removed in its entirety x 2. At this point, graft flows were measured which were excellent. At this point, protamine was given and hemostasis was secured. A 32F chest tube and 19F linsey were placed in the mediastinum and right pleura respectively. The pericardium was reapproximated partially and the sternum was closed with pioneer cables and layers of suture. The leg was closed in layers as well. The patient tolerated the procedure without any significant hypotension and was transferred to CVICU in critical condition on only nitro gtt.
[2023-12-31] MEDS ORDERED: Potassium Replacement Protocol 1 EACH MISC MISCELLANE PRN (12:58)
[2023-12-31] MEDS ORDERED: CALCIUM GLUCONATE IN NACL 2 GM in SALINE 1 100ML.BAG IVPB PRN (12:58)
[2023-12-31] MEDS ORDERED: ONDANSETRON 4 MG/2 ML VIAL IVP PRN (12:58)
[2023-12-31] MEDS ORDERED: IPRATROPIUM-ALBUTEROL 3 ML NEB INHALATION PRN (12:58)
[2023-12-31] MEDS ORDERED: METOCLOPRAMIDE 5 MG/ML 2 ML VIAL IVP PRN (12:58)
[2023-12-31] MEDS ORDERED: DEXTROSE 50% SYRINGE 50 ML IVP PRN ×2 (12:58)
[2023-12-31] MEDS ORDERED: Magnesium Replacement Protocol 1 EACH MISC MISCELLANE PRN (12:58)
[2023-12-31] MEDS ORDERED: ALBUMIN HUMAN 5% 250 ML in EMPTY BAG 1 BAG IVPB PRN (12:58)
[2023-12-31] MEDS ORDERED: DEXTROSE 5% IN WATER 100 ML with AMIODARONE 150 MG IV PRN (12:58)
[2023-12-31] MEDS ORDERED: BENZOCAINE/MENTHOL LOZENG 1 EACH LOZENGE MUCOUS MEM PRN (12:58)
[2023-12-31] MEDS: INSULIN REGULAR 100 UNIT in SODIUM CHLORIDE 0.9% 100 ML IV SCH (13:20)
[2023-12-31] MEDS: SODIUM CHLORIDE 0.9% 1,000 ML IV SCH (13:20)
[2023-12-31 13:24] LABS: Glucose,Whole Blood 117 mg/dL (70-110)
--- NOTE | 2023-12-31 13:35 | XR ---
EXAMINATION TYPE: XR chest 1V portable DATE OF EXAM: 12/31/2023 HISTORY: Post Op CABG COMPARISON: NONE TECHNIQUE: Single view of the chest is submitted. FINDINGS: Endotracheal tube, SG catheter, mediastinal drains and chest tubes are appropriately placed. Left atr ial clip is noted to be in place. Post operative changes of CABG. No sizeable pneumothorax. Scattered Pleural-parenchymal opacities may reflect atelectasis. The heart mildly enlarged. IMPRESSION: 1. Post operative changes of CABG.
[2023-12-31] MEDS: NITROGLYCERIN-D5W PMX 50 MG in DEXTROSE/WATER 1 250ML.BAG IV SCH (13:36)
[2023-12-31 13:52] LABS: Ionized Calcium 5.3 mg/dL (4.5-5.3)
[2023-12-31] MEDS: AMIODARONE 360 MG in DEXTROSE 5% IN WATER 200 ML IV ONE (13:54)
[2023-12-31 13:57] LABS: Glucose,Whole Blood 129 mg/dL (70-110)
[2023-12-31 13:58] LABS: ABG Base Excess -0.3 mmol/L; ABG HCO3 25 mmol/L (21-25); ABG Oxygen Saturation 100.6 % (94-97); ABG PCO2 46 mmHg (35-45); ABG PH 7.35 (7.35-7.45); ABG PO2 312 mmHg (83-108); ABG TCO2 27 mmol/L (19-24)
[2023-12-31 14:03] LABS: INR 1.5 (<1.2); Partial Thromboplastin Time 31.7 sec (22.0-30.0)
[2023-12-31 14:04] LABS: Basophils % (A) 0 %; Eosinophils # (A) 0.1 k/uL (0-0.7); Eosinophils % (A) 1 %; HCT 24.5 % (34.0-46.0); Hypochromasia Slight; Lymphocytes # (A) 1.3 k/uL (1.0-4.8); Lymphocytes % (A) 17 %; MCH 27.8 pg (25.0-35.0); MCHC 32.6 g/dL (31.0-37.0); Mean Platelet Volume 8.7; Monocytes # (A) 0.3 k/uL (0-1.0); Monocytes % (A) 4 %; Neutrophils # (A) 5.9 k/uL (1.3-7.7); Neutrophils % (A) 77 %; RBC 2.88 m/uL (3.80-5.40); WBC 7.6 k/uL (3.8-10.6)
[2023-12-31] MEDS: CLEVIDIPINE BUTYRATE 25 MG in EMPTY BAG 1 BAG IV SCH (14:04)
[2023-12-31 14:05] LABS: ALT 12 U/L (4-34); AST 27 U/L (14-36); African American GFR (CKD) >90 (>60 ml/min/1.73 sqM); Albumin 2.6 g/dL (3.5-5.0); Alkaline Phosphatase 61 U/L (38-126); Anion Gap 4 mmol/L; Blood Urea Nitrogen 9 mg/dL (7-17); Calcium 9.4 mg/dL (8.4-10.2); Carbon Dioxide 24 mmol/L (22-30); Chloride 108 mmol/L (98-107); Glucose 116 mg/dL (74-99); Non-African American GFR(CKD) >90 (>60 ml/min/1.73 sqM); Potassium 4.1 mmol/L (3.5-5.1); Sodium 136 mmol/L (137-145); Total Bilirubin 0.9 mg/dL (0.2-1.3); Total Protein 5.1 g/dL (6.3-8.2)
--- NOTE | 2023-12-31 14:05 | XR ---
EXAMINATION TYPE: XR chest 1V portable DATE OF EXAM: 12/31/2023 COMPARISON: 12/31/2023 HISTORY: Post TECHNIQUE: Single frontal view of the chest is obtained. FINDINGS: Bilateral consolidation and pleural effusion. [place]-Pedro catheter, median sternotomy change s, atrial appendage clip, and lead overlying the thoracic spine stable. ET tube stable. NG tube seen coursing the left upper quadrant likely within the gastric body. Diffuse osteopenia, degenerative changes spine. Post operative changes right shoulder. No sizable pne umothorax. Bilateral chest tubes suspected. IMPRESSION: 1. Bilateral consolidation and pleural effusion correlate for venous congestion. Underlying pneumonia not excluded. 2. No sizable pneumothorax.
[2023-12-31] MEDS: MAGNESIUM SULFATE-D5W PMX 1 GM in DEXTROSE/WATER 1 100ML.BAG IVPB SCH (14:19)
[2023-12-31 14:20] LABS: Platelet Count 85 k/uL (150-450)
--- NOTE | 2023-12-31 14:49 | P.CNPUL ---
History of Present Illness Consult date: 12/31/23 Requesting physician: Cedric Null Reason for consult: other (Mechanical ventilator/critical care management) Chief complaint: Triple-vessel coronary artery disease History of present illness: Is a 78-year-old female patient with a known history of chronic tobacco dependence, chronic anemia, nonalcoholic liver cirrhosis, insulin-dependent diabetes mellitus, hyperlipidemia, hypertension and recently found to have triple-vessel coronary artery disease. She was brought in electively today and had undergone an off-pump coronary artery bypass grafting x 3 with a GARCIA to the LAD, reverse saphenous vein to the obtuse marginal artery 1, reverse saphenous grain from to the distal right coronary artery and left atrial appendage ligation. She is seen postoperatively in the intensive care unit. She is intubated on the mechanical ventilator currently on assist-control mode with a rate of 14, tidal volume 350, FiO2 50% and a PEEP of 10. Blood gases revealed a PaO2 of 312, pCO2 45 and a pH of 7.35 and 100% FiO2. She is sedated on propofol at 50 mcg/kg/min. She is on amiodarone drip at 1 mg/min. Insulin drip at 0.5 units an hour. Nitroglycerin drip at 10 mcg/min. Normal saline at 50 MLS per hour. Cardiac output 3.8. Cardiac index 2.2. PA pressures 27/12. CVP 6. Afebrile. Hemodynamically stable. Chest x-ray revealed bilateral consolidation and pleural effusion. No sizable pneumothorax. Right left and mediastinal chest tubes in place. White count 7.6. Hemoglobin 8.0. Platelets 85,000. INR 1.5. Sodium 136. Potassium 4.1. Bicarb 24. BUN 9. Creatinine 0.55. Glucose 117. Albumin 2.6. She is continued on bronchodilators. Heparin for DVT prophylaxis. Review of Systems ROS unobtainable: due to endotracheal tube Past Medical History Past Medical History: Coronary Artery Disease (CAD), Chest Pain / Angina, Heart Failure, Diabetes Mellitus, GERD/Reflux, GI Bleed, Hypertension, Liver Disease, Pneumonia Additional Past Medical History / Comment(s): heart murmur,anemia and has had several iron infusions/blood transfusions,past bleeding gastric ulcers, rectal bleed, nonalcoholic liver cirrhosis,RLS,low back/L hip pain, clausterphobia, Covid infection September 2023 History of Any Multi-Drug Resistant Organisms: None Reported Past Surgical History: Appendectomy, Cholecystectomy, Heart Catheterization, Hysterectomy, Orthopedic Surgery, Tonsillectomy Additional Past Surgical History / Comment(s): Hemorrhagic cyst removed from right ureter; Right foot surgery d/t crush injury; Left hip pain stimulator implanted-turned off, Steel iris in right arm, EGDs/colonoscopies, bone marrow aspirations, low back and cervical injections for pain, bilateral cataract removals with lens implants. Right middle and ring finger trigger release. Past Anesthesia/Blood Transfusion Reactions: No Reported Reaction, Motion Sickness Additional Past Anesthesia/Blood Transfusion Reaction / Comment(s): Pt has had several blood transfusions without reaction. Pt has claustrophobia. Smoking Status: Former smoker - Past Family History Father Additional Family Medical History / Comment(s): Father was an alcoholic but was sober for the last 9 yrs of his life. Mother Family Medical History: Coronary Artery Disease (CAD), Diabetes Mellitus Additional Family Medical History / Comment(s): Low hgb. She during a colonoscopy. She had 4 vessel CABG Sister(s) Additional Family Medical History / Comment(s): heart stent Medications and Allergies Home Medications Medication Instructions Recorded Confirmed Type Esomeprazole Magnesium [NexIUM] 40 mg PO QAM 02/21/18 12/30/23 History HYDROcodone/APAP 10-325MG [[place] 1 tab PO Q6HR PRN 3 Days #12 tab 02/19/21 12/30/23 Rx 10-325] Cyclobenzaprine [Flexeril] 10 mg PO HS 07/15/21 12/30/23 History Pramipexole [Mirapex] 1 mg PO HS 10/15/21 12/30/23 History Atorvastatin [Lipitor] 40 mg PO HS 12/18/21 12/30/23 History Gabapentin 300 mg PO HS 12/18/21 12/30/23 History Aspirin [Adult Low Dose Aspirin EC] 81 mg PO DAILY 08/12/22 12/30/23 History Losartan [Cozaar] 25 mg PO HS 08/12/22 12/30/23 History carvediloL 25 mg PO BID 08/12/22 12/30/23 History amLODIPine BESYLATE [Amlodipine 10 mg PO DAILY 11/26/23 12/30/23 History Besylate] traZODone HCL [Desyrel] 50 mg PO HS 11/26/23 12/30/23 History Nicotine 21Mg/24Hr Patch [Habitrol] 1 each TRANSDERM DAILY 12/30/23 12/30/23 History Insulin Glargine [Lantus Vial] 60 unit SQ HS 12/31/23 12/31/23 History Insulin Glargine [Lantus Vial] 79 unit SQ DAILY 12/31/23 12/31/23 History Allergies Allergy/AdvReac Type Severity Reaction Status Date / Time pentazocine [From Talwin] Allergy Hallucinati Verified 12/31/23 06:00 ons Physical Exam Vitals: Vital Signs Temp Pulse Pulse Resp BP BP Pulse Ox 12/31/23 14:15 69 12 100 12/31/23 14:00 95 F L 70 14 100 12/31/23 13:59 12/31/23 13:45 94.6 F L 70 22 100 12/31/23 13:30 68 14 100 12/31/23 13:25 12/31/23 12:27 12/31/23 06:16 98.1 F 72 16 198/90 204/105 96 FiO2 12/31/23 14:15 12/31/23 14:00 50 12/31/23 13:59 50 12/31/23 13:45 12/31/23 13:30 100 12/31/23 13:25 100 12/31/23 12:27 100 12/31/23 06:16 Intake and Output 12/30/23 12/31/23 12/31/23 22:59 06:59 14:59 Intake Total 53.496 Output Total 575 Balance -521.504 Intake: IV 53 Intake, IV Titration 0.496 Amount Insulin Regular 100 unit 0.496 In Sodium Chloride 0.9% 100 ml @ Per Protocol IV .[facility] Rx#:[id number] Output: Urine 200 Estimated Blood Loss 375 Other: Weight 78.4 kg ABP, PAP, CO, CI - Last 8 Hours Arterial Blood Pressure 118/49 Arterial Blood Pressure 116/48 Arterial Blood Pressure 138/58 Arterial Blood Pressure 134/55 Pulmonary Artery Pressure 27/12 Pulmonary Artery Pressure 23/10 Pulmonary Artery Pressure 24/10 Pulmonary Artery Pressure 24/8 Cardiac Output 3.8 Cardiac Index 2.2 GENERAL EXAM: Intubated, sedated 78-year-old female patient, in no apparent distress. HEAD: Normocephalic. EYES: Normal reaction of pupils, equal size. NOSE: Clear with pink turbinates. THROAT: Oral endotracheal and gastric tube secured in place. No erythema or exudates. NECK: Right IJ [place]-Pedro catheter in place. No masses, no JVD. CHEST: Sternal dressing dry and intact. Mediastinal, right/left chest tubes in place LUNGS: Equal air entry with few scattered rhonchi. CVS: S1 and S2 normal with no audible murmur, regular rhythm. ABDOMEN: No hepatosplenomegaly, normal bowel sounds, no guarding or rigidity. SPINE: No scoliosis or deformity SKIN: No rashes CENTRAL NERVOUS SYSTEM: Sedated, tone is normal in all 4 extremities. EXTREMITIES: Right brachial arterial line in place. SCDs in place, there is no peripheral edema. No clubbing, no cyanosis. Peripheral pulses are intact. Results - Laboratory Findings CBC and BMP: 12/31/23 13:20 12/31/23 13:20 ABG ABG pH 7.43 (7.35-7.45) 12/31/23 11:55 ABG pCO2 37 mmHg (35-45) 12/31/23 11:55 ABG pO2 322 mmHg (83-108) H 12/31/23 11:55 ABG O2 Saturation >99.4 % (94-97) H 12/31/23 11:55 PT/INR, D-dimer PT 15.0 sec (10.0-12.5) H 12/31/23 13:20 INR 1.5 (<1.2) H 12/31/23 13:20 Abnormal lab findings: Abnormal Labs 12/25/23 12/31/23 12/31/23 08:52 06:36 07:38 RBC Hgb Hct Plt Count PT INR APTT ABG pH ABG pO2 ABG HCO3 ABG O2 Saturation ABG Hematocrit ABG Glucose ABG Lactic Acid Hemoglobin Sodium Chloride Glucose POC Glucose (mg/dL) 214 H 132 H Magnesium Total Protein Albumin Arterial Blood Glucose Crossmatch See Detail 12/31/23 12/31/23 12/31/23 08:25 09:42 10:13 RBC Hgb Hct Plt Count PT INR APTT ABG pH 7.48 H ABG pO2 208 H 280 H 324 H ABG HCO3 27 H 27 H 26 H ABG O2 Saturation >99.4 H >99.4 H >99.4 H ABG Hematocrit 26 L 23 L 24 L ABG Glucose 112 H 124 H 138 H ABG Lactic Acid Hemoglobin 8.5 L 7.4 L 8.0 L Sodium Chloride Glucose POC Glucose (mg/dL) Magnesium Total Protein Albumin Arterial Blood Glucose 112 H 124 H 138 H Crossmatch 12/31/23 12/31/23 12/31/23 10:49 11:55 13:20 RBC 2.88 L Hgb 8.0 L D Hct 24.5 L Plt Count 85 L PT INR APTT ABG pH 7.46 H ABG pO2 334 H 322 H ABG HCO3 26 H ABG O2 Saturation >99.4 H >99.4 H ABG Hematocrit 23 L 23 L ABG Glucose 135 H 118 H ABG Lactic Acid 1.9 H Hemoglobin 7.6 L 7.4 L Sodium Chloride Glucose POC Glucose (mg/dL) Magnesium Total Protein Albumin Arterial Blood Glucose 135 H 118 H Crossmatch 12/31/23 12/31/23 12/31/23 13:20 13:20 13:23 RBC Hgb Hct Plt Count PT 15.0 H INR 1.5 H APTT 31.7 H ABG pH ABG pO2 ABG HCO3 ABG O2 Saturation ABG Hematocrit ABG Glucose ABG Lactic Acid Hemoglobin Sodium 136 L Chloride 108 H Glucose 116 H POC Glucose (mg/dL) 117 H Magnesium 1.0 L Total Protein 5.1 L Albumin 2.6 L Arterial Blood Glucose Crossmatch 12/31/23 13:55 RBC Hgb Hct Plt Count PT INR APTT ABG pH ABG pO2 ABG HCO3 ABG O2 Saturation ABG Hematocrit ABG Glucose ABG Lactic Acid Hemoglobin Sodium Chloride Glucose POC Glucose (mg/dL) 129 H Magnesium Total Protein Albumin Arterial Blood Glucose Crossmatch - Diagnostic Findings Chest x-ray: image reviewed Assessment and Plan Assessment: Triple-vessel coronary artery disease status post off-pump coronary artery bypass grafting x 3. Left internal thoracic artery to the LAD, reverse saphenous vein graft to the obtuse marginal artery, reverse saphenous vein graft to the distal right coronary artery. Left atrial appendage ligation. Postoperative day #0 Postoperative mechanical ventilator management Acute on chronic anemia, expected outcome of surgery. Hemoglobin 8.0 Thrombocytopenia, expected outcome of surgery, current platelets 85,000 History of hypertension Diabetes mellitus Hyperlipidemia History of gastric esophageal reflux disease History of nonalcoholic liver disease Chronic tobacco dependence History of GI bleed Plan: The patient was seen and evaluated Chest x-ray, ABGs, labs and medications reviewed Titrate down the FiO2 to 50% Plan for early extubation protocol as tolerated Continue bronchodilators Heparin for DVT prophylaxis We will continue to follow and make further recommendations based on her clinical status I have personally seen and examined the patient, performed the documentation and the assessment and plan as written. Number of minutes spent on the visit: 20.
[2023-12-31 15:04] LABS: Glucose,Whole Blood 186 mg/dL (70-110)
[2023-12-31 16:01] LABS: Glucose,Whole Blood 209 mg/dL (70-110)
[2023-12-31] MEDS: HEPARIN SODIUM,PORCINE 5,000 UNIT/ML 1 ML VIAL SQ SCH (16:04)
[2023-12-31 16:06] LABS: Basophils % (A) 0 %; Eosinophils % (A) 1 %; HCT 23.7 % (34.0-46.0); HGB 7.6 gm/dL (11.4-16.0); Hypochromasia Moderate; Lymphocytes # (A) 0.6 k/uL (1.0-4.8); Lymphocytes % (A) 12 %; MCH 27.7 pg (25.0-35.0); MCHC 32.2 g/dL (31.0-37.0); Mean Platelet Volume 9.1; Monocytes # (A) 0.2 k/uL (0-1.0); Monocytes % (A) 4 %; Neutrophils # (A) 4.4 k/uL (1.3-7.7); Neutrophils % (A) 83 %; RBC 2.76 m/uL (3.80-5.40); RDW 14.9 % (11.5-15.5); WBC 5.4 k/uL (3.8-10.6)
[2023-12-31 16:16] LABS: Platelet Count 73 k/uL (150-450)
[2023-12-31] MEDS: DEXMEDETOMIDINE/0.9% NACL(PMX) 400 MCG in EMPTY BAG 1 BAG IV SCH (16:21)
[2023-12-31 17:11] LABS: Glucose,Whole Blood 212 mg/dL (70-110)
[2023-12-31] MEDS: ACETAMINOPHEN IV (For NPO) 1,000 MG in EMPTY BAG 1 BAG IVPB SCH (17:26)
[2023-12-31] MEDS: IPRATROPIUM-ALBUTEROL 3 ML NEB INHALATION SCH ×2 (18:05→21:21)
[2023-12-31 18:06] LABS: Glucose,Whole Blood 206 mg/dL (70-110)
[2023-12-31] MEDS: AMIODARONE 450 MG in DEXTROSE 5% IN WATER 250 ML IV SCH (18:15)
[2023-12-31 18:29] LABS: Basophils % (A) 0 %; Eosinophils % (A) 1 %; HCT 26.4 % (34.0-46.0); HGB 8.4 gm/dL (11.4-16.0); Hypochromasia Moderate; Lymphocytes # (A) 0.6 k/uL (1.0-4.8); Lymphocytes % (A) 10 %; MCH 27.6 pg (25.0-35.0); MCHC 31.8 g/dL (31.0-37.0); MCV 86.8 fL (80.0-100.0); Mean Platelet Volume 8.6; Monocytes # (A) 0.2 k/uL (0-1.0); Monocytes % (A) 4 %; Neutrophils # (A) 5.5 k/uL (1.3-7.7); Neutrophils % (A) 85 %; RBC 3.04 m/uL (3.80-5.40); RDW 14.8 % (11.5-15.5); WBC 6.5 k/uL (3.8-10.6)
[2023-12-31 18:31] LABS: Platelet Count 82 k/uL (150-450)
[2023-12-31 18:36] LABS: ABG Base Excess -2.1 mmol/L; ABG HCO3 23 mmol/L (21-25); ABG Oxygen Saturation 99.8 % (94-97); ABG PCO2 41 mmHg (35-45); ABG PH 7.36 (7.35-7.45); ABG PO2 139 mmHg (83-108); ABG TCO2 25 mmol/L (19-24)
[2023-12-31 18:38] LABS: Allen Test Performed? no
[2023-12-31 18:39] LABS: Allen Test Performed? no
[2023-12-31] MEDS: fentaNYL (PF) 50 MCG/ML 2 ML AMP IVP PRN (18:49)
[2023-12-31 18:53] LABS: Glucose,Whole Blood 193 mg/dL (70-110)
[2023-12-31 19:59] LABS: Glucose,Whole Blood 143 mg/dL (70-110)
[2023-12-31] MEDS: GABAPENTIN 300 MG CAP PO SCH (20:55)
[2023-12-31] MEDS: CYCLOBENZAPRINE 10 MG TAB PO SCH (20:55)
[2023-12-31] MEDS: PRAMIPEXOLE 1 MG TAB PO SCH (20:55)
[2023-12-31] MEDS: SENNOSIDES-DOCUSATE SODIUM 1 EACH TAB PO SCH (20:55)
[2023-12-31 21:08] LABS: Glucose,Whole Blood 110 mg/dL (70-110)
[2023-12-31 22:01] LABS: Glucose,Whole Blood 119 mg/dL (70-110)
[2023-12-31] MEDS: hydrALAZINE HCL 20 MG/ML 1 ML VIAL IVP PRN (22:34)
[2023-12-31 23:04] LABS: Glucose,Whole Blood 146 mg/dL (70-110)
--- NOTE | 2023-12-31 23:30 | P.CONS ---
History of Present Illness - Reason for Consult Consult date: 12/31/23 Medical management - Chief Complaint Schedule CABG - History of Present Illness 78-year-old female with coronary artery disease, diabetes mellitus, hypertension Patient presented for scheduled open heart surgery due to recently found triple- vessel disease. She underwent an off-pump coronary artery bypass grafting x 3 tolerated procedure well no observed immediate postoperative complications. At time of my evaluation patient was just been extubated unable to provide any meaningful history she still feels tired and painful for her to speak. She is currently in the ICU on amnio drip and insulin drip she has chest tubes in place. review of systems Patient unable to provide meaningful history as she just got extubated she continues to feel tired on exam Constitutional: No acute distress, has right IJ [place] catheter in place Eyes: Anicteric sclerae, moist conjunctiva, Pupils equal round reactive to light Lungs: Good breath sounds bilaterally, diffuse rhonchi Clear to percussion Normal respiratory effort, no accessory muscle use Cardiovascular: Heart regular in rate and rhythm, No murmurs, gallops, or rubs No peripheral edema Right and left and mediastinal chest tubes in place Abdominal: Soft Nontender, no guarding, rebound or rigidity Abdomen moving with respiration Normoactive bowel sounds Extremities: No digital cyanosis No clubbing Pedal pulses intact and symmetrical Radial pulses intact and symmetrical No calf tenderness Psychiatric: Alert and oriented to person, place Neuro patient moving all 4 extremities spontaneously Past Medical History Past Medical History: Coronary Artery Disease (CAD), Chest Pain / Angina, Heart Failure, Diabetes Mellitus, GERD/Reflux, GI Bleed, Hypertension, Liver Disease, Pneumonia Additional Past Medical History / Comment(s): heart murmur,anemia and has had several iron infusions/blood transfusions,past bleeding gastric ulcers, rectal bleed, nonalcoholic liver cirrhosis,RLS,low back/L hip pain, clausterphobia, Covid infection September 2023 History of Any Multi-Drug Resistant Organisms: None Reported Past Surgical History: Appendectomy, Cholecystectomy, Heart Catheterization, Hysterectomy, Orthopedic Surgery, Tonsillectomy Additional Past Surgical History / Comment(s): Hemorrhagic cyst removed from right ureter; Right foot surgery d/t crush injury; Left hip pain stimulator implanted-turned off, Steel iris in right arm, EGDs/colonoscopies, bone marrow aspirations, low back and cervical injections for pain, bilateral cataract removals with lens implants. Right middle and ring finger trigger release. Past Anesthesia/Blood Transfusion Reactions: No Reported Reaction, Motion Sickne ss Additional Past Anesthesia/Blood Transfusion Reaction / Comm: Pt has had several blood transfusions without reaction. Pt has claustrophobia. Smoking Status: Former smoker - Past Family History Father Additional Family Medical History / Comment(s): Father was an alcoholic but was sober for the last 9 yrs of his life. Mother Family Medical History: Coronary Artery Disease (CAD), Diabetes Mellitus Additional Family Medical History / Comment(s): Low hgb. She during a colonoscopy. She had 4 vessel CABG Sister(s) Additional Family Medical History / Comment(s): heart stent Medications and Allergies Home Medications Medication Instructions Recorded Confirmed Type Esomeprazole Magnesium [NexIUM] 40 mg PO QAM 02/21/18 12/30/23 History HYDROcodone/APAP 10-325MG [[place] 1 tab PO Q6HR PRN 3 Days #12 tab 02/19/21 12/30/23 Rx 10-325] Cyclobenzaprine [Flexeril] 10 mg PO HS 07/15/21 12/30/23 History Pramipexole [Mirapex] 1 mg PO HS 10/15/21 12/30/23 History Atorvastatin [Lipitor] 40 mg PO HS 12/18/21 12/30/23 History Gabapentin 300 mg PO HS 12/18/21 12/30/23 History Aspirin [Adult Low Dose Aspirin EC] 81 mg PO DAILY 08/12/22 12/30/23 History Losartan [Cozaar] 25 mg PO HS 08/12/22 12/30/23 History carvediloL 25 mg PO BID 08/12/22 12/30/23 History amLODIPine BESYLATE [Amlodipine 10 mg PO DAILY 11/26/23 12/30/23 History Besylate] traZODone HCL [Desyrel] 50 mg PO HS 11/26/23 12/30/23 History Nicotine 21Mg/24Hr Patch [Habitrol] 1 each TRANSDERM DAILY 12/30/23 12/30/23 History Insulin Glargine [Lantus Vial] 60 unit SQ HS 12/31/23 12/31/23 History Insulin Glargine [Lantus Vial] 79 unit SQ DAILY 12/31/23 12/31/23 History Allergies Allergy/AdvReac Type Severity Reaction Status Date / Time pentazocine [From [place]win] Allergy Hallucinati Verified 12/31/23 06:00 ons Physical Exam Vitals: Vital Signs Temp Pulse Pulse Resp BP BP Pulse Ox 12/31/23 23:00 93 7 L 98 12/31/23 22:45 87 11 L 99 12/31/23 22:30 90 20 93 L 12/31/23 22:15 85 7 L 97 12/31/23 22:00 84 7 L 97 12/31/23 21:45 78 10 L 96 12/31/23 21:35 84 12/31/23 21:30 81 24 100 12/31/23 21:21 81 12/31/23 21:15 80 18 96 12/31/23 21:00 79 25 H 97 12/31/23 20:45 71 10 L 99 12/31/23 20:30 75 14 99 12/31/23 20:15 73 15 98 12/31/23 20:00 77 13 98 12/31/23 19:45 78 11 L 97 12/31/23 19:30 71 16 98 12/31/23 19:15 70 13 99 12/31/23 19:00 70 18 98 12/31/23 18:45 73 15 97 12/31/23 18:30 70 29 H 99 12/31/23 18:15 69 15 97 12/31/23 18:01 12/31/23 18:00 36.6 F L 72 23 99 12/31/23 17:45 68 21 98 12/31/23 17:30 69 19 99 12/31/23 17:15 70 20 99 12/31/23 17:00 72 19 99 12/31/23 16:45 73 19 100 12/31/23 16:30 72 21 99 12/31/23 16:15 73 18 99 12/31/23 16:00 97.5 F L 70 67 18 100 12/31/23 15:45 71 17 99 12/31/23 15:40 12/31/23 15:30 71 18 100 12/31/23 15:15 70 15 100 12/31/23 15:00 96.3 F L 69 14 100 12/31/23 14:50 67 14 12/31/23 14:45 66 14 100 12/31/23 14:30 66 11 L 100 12/31/23 14:15 69 12 100 12/31/23 14:00 95 F L 70 14 100 12/31/23 13:59 12/31/23 13:45 94.6 F L 70 22 100 12/31/23 13:30 68 14 100 12/31/23 13:25 12/31/23 12:27 12/31/23 06:16 98.1 F 72 16 198/90 204/105 96 FiO2 12/31/23 23:00 12/31/23 22:45 12/31/23 22:30 12/31/23 22:15 12/31/23 22:00 12/31/23 21:45 12/31/23 21:35 12/31/23 21:30 12/31/23 21:21 12/31/23 21:15 12/31/23 21:00 12/31/23 20:45 12/31/23 20:30 12/31/23 20:15 12/31/23 20:00 12/31/23 19:45 12/31/23 19:30 12/31/23 19:15 12/31/23 19:00 12/31/23 18:45 12/31/23 18:30 12/31/23 18:15 12/31/23 18:01 40 12/31/23 18:00 50 12/31/23 17:45 12/31/23 17:30 12/31/23 17:15 12/31/23 17:00 12/31/23 16:45 12/31/23 16:30 12/31/23 16:15 12/31/23 16:00 50 12/31/23 15:45 12/31/23 15:40 40 12/31/23 15:30 12/31/23 15:15 12/31/23 15:00 50 12/31/23 14:50 50 12/31/23 14:45 12/31/23 14:30 12/31/23 14:15 12/31/23 14:00 50 12/31/23 13:59 50 12/31/23 13:45 12/31/23 13:30 100 12/31/23 13:25 100 12/31/23 12:27 100 12/31/23 06:16 Intake and Output 12/31/23 12/31/23 01/01/24 14:59 22:59 06:59 Intake Total 465.632 912.342 9 Output Total 815 625 45 Balance -349.368 287.342 -36 Intake: IV 62 122 9 CO/CI 50 pressure bag 9 72 9 Intake, IV Titration 403.632 730.342 0 Amount Albumin Human 5% 250 ml 250 In Empty Bag 1 bag @ 250 mls/hr IVPB Q1HR PRN Rx#: [id number] Clevidipine Butyrate 25 18.932 mg In Empty Bag 1 bag @ 1 MG/HR 2 mls/hr IV .Q24H [facility] Rx#:[id number] Dexmedetomidine/0.9% NaCl 8.265 (Pmx) 400 mcg In Empty Bag 1 bag @ Titrate IV . Q0M [facility] Rx#:[id number] Insulin Regular 100 unit 0.496 32.977 0 In Sodium Chloride 0.9% 100 ml @ Per Protocol IV .Q0M [facility] Rx#:[id number] Magnesium Sulfate-D5w Pmx 100 300 1 gm In Dextrose/Water 1 100ml.bag @ 100 mls/hr IVPB Q1H [facility] Rx#: [id number] Sodium Chloride 0.9% 1, 50 300 000 ml @ 50 mls/hr IV . Q20H [facility] Rx#:[id number] propofoL 1,000 mg In 3.136 70.168 Empty Bag 1 bag @ Titrate IV .Q0M [facility]TR[facility] Rx#: [id number] Oral 60 Output: Drainage 45 210 25 Left Lower Calf 20 Mediastinal 20 130 10 R and L pleural 5 80 15 Urine 395 415 20 Estimated Blood Loss 375 Other: Voiding Method Indwelling Catheter Indwelling Catheter ABP, PAP, CO, CI - Last 8 Hours Arterial Blood Pressure 140/60 Arterial Blood Pressure 132/56 Arterial Blood Pressure 128/58 Arterial Blood Pressure 153/67 Arterial Blood Pressure 163/121 Arterial Blood Pressure 132/54 Arterial Blood Pressure 190/73 Arterial Blood Pressure 143/59 Arterial Blood Pressure 152/63 Arterial Blood Pressure 125/49 Arterial Blood Pressure 150/62 Arterial Blood Pressure 133/53 Arterial Blood Pressure 169/64 Arterial Blood Pressure 157/62 Arterial Blood Pressure 116/43 Arterial Blood Pressure 127/47 Arterial Blood Pressure 136/52 Arterial Blood Pressure 154/58 Arterial Blood Pressure 143/56 Arterial Blood Pressure 108/42 Arterial Blood Pressure 156/57 Arterial Blood Pressure 142/53 Arterial Blood Pressure 139/54 Arterial Blood Pressure 125/48 Arterial Blood Pressure 148/60 Arterial Blood Pressure 156/61 Arterial Blood Pressure 151/60 Arterial Blood Pressure 133/55 Arterial Blood Pressure 135/56 Arterial Blood Pressure 135/53 Arterial Blood Pressure 136/54 Pulmonary Artery Pressure 44/21 Pulmonary Artery Pressure 41/16 Pulmonary Artery Pressure 42/20 Pulmonary Artery Pressure 42/18 Pulmonary Artery Pressure 47/20 Pulmonary Artery Pressure 36/16 Pulmonary Artery Pressure 42/18 Pulmonary Artery Pressure 41/17 Pulmonary Artery Pressure 42/20 Pulmonary Artery Pressure 31/12 Pulmonary Artery Pressure 32/14 Pulmonary Artery Pressure 28/12 Pulmonary Artery Pressure 38/17 Pulmonary Artery Pressure 44/19 Pulmonary Artery Pressure 24/7 Pulmonary Artery Pressure 24/6 Pulmonary Artery Pressure 27/10 Pulmonary Artery Pressure 37/9 Pulmonary Artery Pressure 36/9 Pulmonary Artery Pressure 22/12 Pulmonary Artery Pressure 35/17 Pulmonary Artery Pressure 34/17 Pulmonary Artery Pressure 35/19 Pulmonary Artery Pressure 35/18 Pulmonary Artery Pressure 36/18 Pulmonary Artery Pressure 36/19 Pulmonary Artery Pressure 33/19 Pulmonary Artery Pressure 32/20 Pulmonary Artery Pressure 29/17 Pulmonary Artery Pressure 34/17 Pulmonary Artery Pressure 30/15 Cardiac Output 5.1 Cardiac Output 4.7 Cardiac Output 4.9 Cardiac Index 2.9 Cardiac Index 2.7 Cardiac Index 2.8 Results CBC & Chem 7: 12/31/23 18:05 12/31/23 13:20 Labs: Abnormal Lab Results - Last 24 Hours (Table) 12/25/23 12/31/23 12/31/23 Range/Units 08:52 06:36 07:38 RBC (3.80-5.40) m/uL Hgb (11.4-16.0) gm/dL Hct (34.0-46.0) % Plt Count (150-450) k/uL Lymphocytes # (1.0-4.8) k/uL PT (10.0-12.5) sec INR (<1.2) APTT (22.0-30.0) sec ABG pH (7.35-7.45) ABG pCO2 (35-45) mmHg ABG pO2 (83-108) mmHg ABG HCO3 (21-25) mmol/L ABG Total CO2 (19-24) mmol/L ABG O2 Saturation (94-97) % ABG Hematocrit (34.0-46.0) % ABG Glucose (75-99) mg/dL ABG Lactic Acid (0.5-1.6) mmol/L Hemoglobin (11.4-16.0) gm/dL Sodium (137-145) mmol/L Chloride (98-107) mmol/L Glucose (74-99) mg/dL POC Glucose (mg/dL) 214 H 132 H (70-110) mg/dL Magnesium (1.6-2.3) mg/dL Total Protein (6.3-8.2) g/dL Albumin (3.5-5.0) g/dL Arterial Blood Glucose (75-99) mg/dL Crossmatch See Detail 12/31/23 12/31/23 12/31/23 Range/Units 08:25 09:42 10:13 RBC (3.80-5.40) m/uL Hgb (11.4-16.0) gm/dL Hct (34.0-46.0) % Plt Count (150-450) k/uL Lymphocytes # (1.0-4.8) k/uL PT (10.0-12.5) sec INR (<1.2) APTT (22.0-30.0) sec ABG pH 7.48 H (7.35-7.45) ABG pCO2 (35-45) mmHg ABG pO2 208 H 280 H 324 H (83-108) mmHg ABG HCO3 27 H 27 H 26 H (21-25) mmol/L ABG Total CO2 (19-24) mmol/L ABG O2 Saturation >99.4 H >99.4 H >99.4 H (94-97) % ABG Hematocrit 26 L 23 L 24 L (34.0-46.0) % ABG Glucose 112 H 124 H 138 H (75-99) mg/dL ABG Lactic Acid (0.5-1.6) mmol/L Hemoglobin 8.5 L 7.4 L 8.0 L (11.4-16.0) gm/dL Sodium (137-145) mmol/L Chloride (98-107) mmol/L Glucose (74-99) mg/dL POC Glucose (mg/dL) (70-110) mg/dL Magnesium (1.6-2.3) mg/dL Total Protein (6.3-8.2) g/dL Albumin (3.5-5.0) g/dL Arterial Blood Glucose 112 H 124 H 138 H (75-99) mg/dL Crossmatch 12/31/23 12/31/23 12/31/23 Range/Units 10:49 11:55 13:20 RBC 2.88 L (3.80-5.40) m/uL Hgb 8.0 L D (11.4-16.0) gm/dL Hct 24.5 L (34.0-46.0) % Plt Count 85 L (150-450) k/uL Lymphocytes # (1.0-4.8) k/uL PT (10.0-12.5) sec INR (<1.2) APTT (22.0-30.0) sec ABG pH 7.46 H (7.35-7.45) ABG pCO2 (35-45) mmHg ABG pO2 334 H 322 H (83-108) mmHg ABG HCO3 26 H (21-25) mmol/L ABG Total CO2 (19-24) mmol/L ABG O2 Saturation >99.4 H >99.4 H (94-97) % ABG Hematocrit 23 L 23 L (34.0-46.0) % ABG Glucose 135 H 118 H (75-99) mg/dL ABG Lactic Acid 1.9 H (0.5-1.6) mmol/L Hemoglobin 7.6 L 7.4 L (11.4-16.0) gm/dL Sodium (137-145) mmol/L Chloride (98-107) mmol/L Glucose (74-99) mg/dL POC Glucose (mg/dL) (70-110) mg/dL Magnesium (1.6-2.3) mg/dL Total Protein (6.3-8.2) g/dL Albumin (3.5-5.0) g/dL Arterial Blood Glucose 135 H 118 H (75-99) mg/dL Crossmatch 12/31/23 12/31/23 12/31/23 Range/Units 13:20 13:20 13:23 RBC (3.80-5.40) m/uL Hgb (11.4-16.0) gm/dL Hct (34.0-46.0) % Plt Count (150-450) k/uL Lymphocytes # (1.0-4.8) k/uL PT 15.0 H (10.0-12.5) sec INR 1.5 H (<1.2) APTT 31.7 H (22.0-30.0) sec ABG pH (7.35-7.45) ABG pCO2 (35-45) mmHg ABG pO2 (83-108) mmHg ABG HCO3 (21-25) mmol/L ABG Total CO2 (19-24) mmol/L ABG O2 Saturation (94-97) % ABG Hematocrit (34.0-46.0) % ABG Glucose (75-99) mg/dL ABG Lactic Acid (0.5-1.6) mmol/L Hemoglobin (11.4-16.0) gm/dL Sodium 136 L (137-145) mmol/L Chloride 108 H (98-107) mmol/L Glucose 116 H (74-99) mg/dL POC Glucose (mg/dL) 117 H (70-110) mg/dL Magnesium 1.0 L (1.6-2.3) mg/dL Total Protein 5.1 L (6.3-8.2) g/dL Albumin 2.6 L (3.5-5.0) g/dL Arterial Blood Glucose (75-99) mg/dL Crossmatch 12/31/23 12/31/23 12/31/23 Range/Units 13:55 13:56 15:03 RBC (3.80-5.40) m/uL Hgb (11.4-16.0) gm/dL Hct (34.0-46.0) % Plt Count (150-450) k/uL Lymphocytes # (1.0-4.8) k/uL PT (10.0-12.5) sec INR (<1.2) APTT (22.0-30.0) sec ABG pH (7.35-7.45) ABG pCO2 46 H (35-45) mmHg ABG pO2 312 H (83-108) mmHg ABG HCO3 (21-25) mmol/L ABG Total CO2 27 H (19-24) mmol/L ABG O2 Saturation 100.6 H (94-97) % ABG Hematocrit (34.0-46.0) % ABG Glucose (75-99) mg/dL ABG Lactic Acid (0.5-1.6) mmol/L Hemoglobin (11.4-16.0) gm/dL Sodium (137-145) mmol/L Chloride (98-107) mmol/L Glucose (74-99) mg/dL POC Glucose (mg/dL) 129 H 186 H (70-110) mg/dL Magnesium (1.6-2.3) mg/dL Total Protein (6.3-8.2) g/dL Albumin (3.5-5.0) g/dL Arterial Blood Glucose (75-99) mg/dL Crossmatch 12/31/23 12/31/23 12/31/23 Range/Units 15:53 15:59 17:09 RBC 2.76 L (3.80-5.40) m/uL Hgb 7.6 L (11.4-16.0) gm/dL Hct 23.7 L (34.0-46.0) % Plt Count 73 L (150-450) k/uL Lymphocytes # 0.6 L (1.0-4.8) k/uL PT (10.0-12.5) sec INR (<1.2) APTT (22.0-30.0) sec ABG pH (7.35-7.45) ABG pCO2 (35-45) mmHg ABG pO2 (83-108) mmHg ABG HCO3 (21-25) mmol/L ABG Total CO2 (19-24) mmol/L ABG O2 Saturation (94-97) % ABG Hematocrit (34.0-46.0) % ABG Glucose (75-99) mg/dL ABG Lactic Acid (0.5-1.6) mmol/L Hemoglobin (11.4-16.0) gm/dL Sodium (137-145) mmol/L Chloride (98-107) mmol/L Glucose (74-99) mg/dL POC Glucose (mg/dL) 209 H 212 H (70-110) mg/dL Magnesium (1.6-2.3) mg/dL Total Protein (6.3-8.2) g/dL Albumin (3.5-5.0) g/dL Arterial Blood Glucose (75-99) mg/dL Crossmatch 12/31/23 12/31/23 12/31/23 Range/Units 18:04 18:05 18:34 RBC 3.04 L (3.80-5.40) m/uL Hgb 8.4 L (11.4-16.0) gm/dL Hct 26.4 L (34.0-46.0) % Plt Count 82 L (150-450) k/uL Lymphocytes # 0.6 L (1.0-4.8) k/uL PT (10.0-12.5) sec INR (<1.2) APTT (22.0-30.0) sec ABG pH (7.35-7.45) ABG pCO2 (35-45) mmHg ABG pO2 139 H (83-108) mmHg ABG HCO3 (21-25) mmol/L ABG Total CO2 25 H (19-24) mmol/L ABG O2 Saturation 99.8 H (94-97) % ABG Hematocrit (34.0-46.0) % ABG Glucose (75-99) mg/dL ABG Lactic Acid (0.5-1.6) mmol/L Hemoglobin (11.4-16.0) gm/dL Sodium (137-145) mmol/L Chloride (98-107) mmol/L Glucose (74-99) mg/dL POC Glucose (mg/dL) 206 H (70-110) mg/dL Magnesium (1.6-2.3) mg/dL Total Protein (6.3-8.2) g/dL Albumin (3.5-5.0) g/dL Arterial Blood Glucose (75-99) mg/dL Crossmatch 12/31/23 12/31/23 12/31/23 Range/Units 18:52 19:57 21:59 RBC (3.80-5.40) m/uL Hgb (11.4-16.0) gm/dL Hct (34.0-46.0) % Plt Count (150-450) k/uL Lymphocytes # (1.0-4.8) k/uL PT (10.0-12.5) sec INR (<1.2) APTT (22.0-30.0) sec ABG pH (7.35-7.45) ABG pCO2 (35-45) mmHg ABG pO2 (83-108) mmHg ABG HCO3 (21-25) mmol/L ABG Total CO2 (19-24) mmol/L ABG O2 Saturation (94-97) % ABG Hematocrit (34.0-46.0) % ABG Glucose (75-99) mg/dL ABG Lactic Acid (0.5-1.6) mmol/L Hemoglobin (11.4-16.0) gm/dL Sodium (137-145) mmol/L Chloride (98-107) mmol/L Glucose (74-99) mg/dL POC Glucose (mg/dL) 193 H 143 H 119 H (70-110) mg/dL Magnesium (1.6-2.3) mg/dL Total Protein (6.3-8.2) g/dL Albumin (3.5-5.0) g/dL Arterial Blood Glucose (75-99) mg/dL Crossmatch 12/31/23 Range/Units 23:01 RBC (3.80-5.40) m/uL Hgb (11.4-16.0) gm/dL Hct (34.0-46.0) % Plt Count (150-450) k/uL Lymphocytes # (1.0-4.8) k/uL PT (10.0-12.5) sec INR (<1.2) APTT (22.0-30.0) sec ABG pH (7.35-7.45) ABG pCO2 (35-45) mmHg ABG pO2 (83-108) mmHg ABG HCO3 (21-25) mmol/L ABG Total CO2 (19-24) mmol/L ABG O2 Saturation (94-97) % ABG Hematocrit (34.0-46.0) % ABG Glucose (75-99) mg/dL ABG Lactic Acid (0.5-1.6) mmol/L Hemoglobin (11.4-16.0) gm/dL Sodium (137-145) mmol/L Chloride (98-107) mmol/L Glucose (74-99) mg/dL POC Glucose (mg/dL) 146 H (70-110) mg/dL Magnesium (1.6-2.3) mg/dL Total Protein (6.3-8.2) g/dL Albumin (3.5-5.0) g/dL Arterial Blood Glucose (75-99) mg/dL Crossmatch Assessment and Plan Assessment: Diabetes mellitus Insulin sliding scale Triple-vessel coronary artery disease status post bypass grafting x 3 postoperative day 0 Management per primary cardiothoracic surgery team Continue with aspirin Continue Plavix Continue with atorvastatin Chest tube care On IV antibiotics with cefazolin 2 g IV piggyback every 8 hours Pain control with opiates Bicytopenia Thrombocytopenia with platelet count of 82 continue to monitor closely no active bleeding Acute on chronic anemia precipitated by cardiac surgery Hemoglobin 8.4 continue to monitor Transfuse for hemoglobin less than 7 White count 6.5 unremarkable Hypertension Continue with Coreg 25 mg twice daily GERD Protonix 40 mg p.o. daily Renal function unremarkable sodium 136 potassium 4.1 BUN 9 creatinine 0.5 Hypomagnesemia Replace per ICU protocol follow-up levels of magnesium Magnesium level 1 Full code DVT prophylaxis on heparin 5000 units subcu 3 times a day Thank you for this consultation we will continue to follow-up
[2024-01-01 01:34] LABS: Glucose,Whole Blood 125 mg/dL (70-110)
[2024-01-01 01:34] LABS: Glucose,Whole Blood 155 mg/dL (70-110)
[2024-01-01 02:00] LABS: Glucose,Whole Blood 113 mg/dL (70-110)
[2024-01-01 02:38] LABS: ABG Base Excess 2.2 mmol/L; ABG Oxygen Saturation >99.4 % (94-97)
[2024-01-01 02:39] LABS: ABG Hematocrit 19 % (34.0-46.0)
[2024-01-01 02:54] LABS: Glucose,Whole Blood 123 mg/dL (70-110)
[2024-01-01 04:05] LABS: Glucose,Whole Blood 128 mg/dL (70-110)
[2024-01-01 04:20] LABS: Ionized Calcium 4.9 mg/dL (4.5-5.3)
[2024-01-01 04:28] LABS: ALT 12 U/L (4-34); AST 37 U/L (14-36); African American GFR (CKD) >90 (>60 ml/min/1.73 sqM); Albumin 2.9 g/dL (3.5-5.0); Alkaline Phosphatase 64 U/L (38-126); Anion Gap 6 mmol/L; Blood Urea Nitrogen 10 mg/dL (7-17); Calcium 8.6 mg/dL (8.4-10.2); Carbon Dioxide 20 mmol/L (22-30); Chloride 106 mmol/L (98-107); Glucose 120 mg/dL (74-99); Magnesium 1.7 mg/dL (1.6-2.3); Non-African American GFR(CKD) >90 (>60 ml/min/1.73 sqM); Potassium 3.8 mmol/L (3.5-5.1); Sodium 132 mmol/L (137-145); Total Bilirubin 1.2 mg/dL (0.2-1.3); Total Protein 5.4 g/dL (6.3-8.2)
[2024-01-01 04:30] LABS: Basophils % (A) 0 %; Eosinophils % (A) 0 %; HCT 27.5 % (34.0-46.0); Hypochromasia Slight; Lymphocytes # (A) 1.6 k/uL (1.0-4.8); Lymphocytes % (A) 12 %; MCH 27.7 pg (25.0-35.0); MCHC 32.6 g/dL (31.0-37.0); Mean Platelet Volume 8.3; Monocytes # (A) 0.7 k/uL (0-1.0); Monocytes % (A) 5 %; Neutrophils # (A) 11.2 k/uL (1.3-7.7); Neutrophils % (A) 82 %; Platelet Count 122 k/uL (150-450); RBC 3.24 m/uL (3.80-5.40); RDW 15.3 % (11.5-15.5); WBC 13.8 k/uL (3.8-10.6)
[2024-01-01] MEDS: CLEVIDIPINE BUTYRATE 25 MG/50 ML VIAL IV ONE (04:30)
[2024-01-01] MEDS: MAGNESIUM SULFATE-D5W PMX 1 GM in DEXTROSE/WATER 1 100ML.BAG IVPB ONE (04:57)
[2024-01-01] MEDS: POTASSIUM BICARBONATE/CIT AC 20 MEQ TABLET.EFF NG-TUBE SCH (04:57)
[2024-01-01 05:09] LABS: Glucose,Whole Blood 119 mg/dL (70-110)
[2024-01-01 06:05] LABS: Glucose,Whole Blood 146 mg/dL (70-110)
[2024-01-01 07:02] LABS: Glucose,Whole Blood 131 mg/dL (70-110)
--- NOTE | 2024-01-01 07:55 | XR ---
EXAMINATION TYPE: XR chest 1V portable DATE OF EXAM: 01/01/2024 HISTORY: Post Op CABG COMPARISON: 12/31/2023 TECHNIQUE: Single view of the chest is submitted. FINDINGS: SG catheter, mediastinal drains and chest tubes are appropriately placed. Left atrial clip is noted a s well. Post operative changes of CABG. No sizeable pneumothorax. There is increasing pulmonary venous congestion and increased patchy infiltrate about the left lower lobe. Small effusions are present. There is continued cardiomegaly. IMPRESSION: 1. Post operative changes of CABG. 2. There is increasing pulmonary venous congestion and increased patchy infiltrate about the left lo wer lobe. Small effusions are present.
--- NOTE | 2024-01-01 07:59 | P.CRDCN ---
History of Present Illness Consult date: 01/01/24 History of present illness: This is a 78-year-old female patient who was diagnosed recently with severe symptomatic triple-vessel coronary artery disease with anatomy favoring surgical revascularization. She was admitted to the hospital yesterday and she underwent CABG x 3 with GARCIA to LAD and SVG to first obtuse marginal branch and SVG to RCA. This is postoperation day #1. Currently the patient is extubated. She seems to be stable from the cardiac standpoint of view and not requiring any vasopressors at this point. As [id number] she is hypertensive and currently she is on Cleviprex which is in process of being weaned. Hemoglobin is stable. Electrolytes are within normal limits. Kidney function is stable. Beside that the chest x-ray was reviewed and seems to be somewhat wet. Her urine output has been marginal. I am going to give the patient 20 mg of Lasix IV once. Will continue monitor the kidney function and electrolytes and continue monitor the hemoglobin and chest x-ray as well as well as a urine output. Beside that she is on dual antiplatelet therapy along with intermediate intensity statin. We will consider increasing the statin intensity to hide down the line. The examination is remarkable for stable vital signs with somewhat elevated blood pressure as well as regular rate and rhythm with a distant heart sounds and diminished breathing sounds bilaterally no edema was noted in the lower extremities Assessment Severe triple-vessel CAD as described above Status post CABG as described above Multiple comorbid conditions including hypertension and dyslipidemia and smoking and diabetes Plan Continue the current medical regimen Consider increasing the dose of statin Continue adjusting the blood pressure medication to get the pressure under control Give the patient 20 mg of Lasix IV once Follow-up with the patient Past Medical History Past Medical History: Coronary Artery Disease (CAD), Chest Pain / Angina, Heart Failure, Diabetes Mellitus, GERD/Reflux, GI Bleed, Hypertension, Liver Disease, Pneumonia Additional Past Medical History / Comment(s): heart murmur,anemia and has had several iron infusions/blood transfusions,past bleeding gastric ulcers, rectal bleed, nonalcoholic liver cirrhosis,RLS,low back/L hip pain, clausterphobia, Covid infection September 2023 History of Any Multi-Drug Resistant Organisms: None Reported Past Surgical History: Appendectomy, Cholecystectomy, Heart Catheterization, H ysterectomy, Orthopedic Surgery, Tonsillectomy Additional Past Surgical History / Comment(s): Hemorrhagic cyst removed from right ureter; Right foot surgery d/t crush injury; Left hip pain stimulator implanted-turned off, Steel iris in right arm, EGDs/colonoscopies, bone marrow aspirations, low back and cervical injections for pain, bilateral cataract removals with lens implants. Right middle and ring finger trigger release. Past Anesthesia/Blood Transfusion Reactions: No Reported Reaction, Motion Sickness Additional Past Anesthesia/Blood Transfusion Reaction / Comment(s): Pt has had several blood transfusions without reaction. Pt has claustrophobia. Smoking Status: Former smoker - Past Family History Father Additional Family Medical History / Comment(s): Father was an alcoholic but was sober for the last 9 yrs of his life. Mother Family Medical History: Coronary Artery Disease (CAD), Diabetes Mellitus Additional Family Medical History / Comment(s): Low hgb. She during a colonoscopy. She had 4 vessel CABG Sister(s) Additional Family Medical History / Comment(s): heart stent Medications and Allergies Home Medications Medication Instructions Recorded Confirmed Type Esomeprazole Magnesium [NexIUM] 40 mg PO QAM 02/21/18 12/30/23 History HYDROcodone/APAP 10-325MG [Temple 1 tab PO Q6HR PRN 3 Days #12 tab 02/19/21 12/30/23 Rx 10-325] Cyclobenzaprine [Flexeril] 10 mg PO HS 07/15/21 12/30/23 History Pramipexole [Mirapex] 1 mg PO HS 10/15/21 12/30/23 History Atorvastatin [Lipitor] 40 mg PO HS 12/18/21 12/30/23 History Gabapentin 300 mg PO HS 12/18/21 12/30/23 History Aspirin [Adult Low Dose Aspirin EC] 81 mg PO DAILY 08/12/22 12/30/23 History Losartan [Cozaar] 25 mg PO HS 08/12/22 12/30/23 History carvediloL 25 mg PO BID 08/12/22 12/30/23 History amLODIPine BESYLATE [Amlodipine 10 mg PO DAILY 11/26/23 12/30/23 History Besylate] traZODone HCL [Desyrel] 50 mg PO HS 11/26/23 12/30/23 History Nicotine 21Mg/24Hr Patch [Habitrol] 1 each TRANSDERM DAILY 12/30/23 12/30/23 History Insulin Glargine [Lantus Vial] 60 unit SQ HS 12/31/23 12/31/23 History Insulin Glargine [Lantus Vial] 79 unit SQ DAILY 12/31/23 12/31/23 History Allergies Allergy/AdvReac Type Severity Reaction Status Date / Time pentazocine [From Talwin] Allergy Hallucinati Verified 12/31/23 06:00 ons Physical Exam Vitals: Vital Signs Temp Pulse Pulse Resp BP Pulse Ox FiO2 01/01/24 07:00 71 24 96 01/01/24 06:45 71 23 151/62 98 01/01/24 06:30 71 21 99 01/01/24 06:15 70 20 97 01/01/24 06:00 99.1 F 72 25 H 96 01/01/24 05:45 73 18 95 01/01/24 05:30 74 12 94 L 01/01/24 05:15 75 25 H 95 01/01/24 05:00 75 10 L 95 01/01/24 04:45 75 12 96 01/01/24 04:30 75 10 L 96 01/01/24 04:15 76 10 L 97 01/01/24 04:00 99.3 F 78 10 L 96 01/01/24 03:45 81 10 L 96 01/01/24 03:30 81 14 94 L 01/01/24 03:15 75 12 94 L 01/01/24 03:00 82 12 95 01/01/24 02:45 85 94 L 01/01/24 02:30 85 93 L 01/01/24 02:15 85 94 L 01/01/24 02:00 89 16 94 L 01/01/24 01:45 87 94 L 01/01/24 01:30 92 95 01/01/24 01:15 86 97 01/01/24 01:00 92 96 01/01/24 00:45 90 97 01/01/24 00:30 90 98 01/01/24 00:15 89 11 L 97 01/01/24 00:00 99.5 F 89 98 12/31/23 23:45 90 98 12/31/23 23:30 92 12 99 12/31/23 23:15 92 99 12/31/23 23:10 92 98 12/31/23 23:00 93 7 L 98 12/31/23 22:45 87 11 L 99 12/31/23 22:30 90 20 93 L 12/31/23 22:15 85 7 L 97 12/31/23 22:00 84 7 L 97 12/31/23 21:45 78 10 L 96 12/31/23 21:35 84 12/31/23 21:30 81 24 100 12/31/23 21:21 81 12/31/23 21:15 80 18 96 12/31/23 21:00 79 25 H 97 12/31/23 20:45 71 10 L 99 12/31/23 20:30 75 14 99 12/31/23 20:15 73 15 98 12/31/23 20:00 77 13 98 12/31/23 19:45 78 11 L 97 12/31/23 19:30 71 16 98 12/31/23 19:15 70 13 99 12/31/23 19:00 70 18 98 12/31/23 18:45 73 15 97 12/31/23 18:30 70 29 H 99 12/31/23 18:15 69 15 97 12/31/23 18:01 40 12/31/23 18:00 36.6 F L 72 23 99 50 12/31/23 17:45 68 21 98 12/31/23 17:30 69 19 99 12/31/23 17:15 70 20 99 12/31/23 17:00 72 19 99 12/31/23 16:45 73 19 100 12/31/23 16:30 72 21 99 12/31/23 16:15 73 18 99 12/31/23 16:00 97.5 F L 70 67 18 100 50 12/31/23 15:45 71 17 99 12/31/23 15:40 40 12/31/23 15:30 71 18 100 12/31/23 15:15 70 15 100 12/31/23 15:00 96.3 F L 69 14 100 50 12/31/23 14:50 67 14 50 12/31/23 14:45 66 14 100 12/31/23 14:30 66 11 L 100 12/31/23 14:15 69 12 100 12/31/23 14:00 95 F L 70 14 100 50 12/31/23 13:59 50 12/31/23 13:45 94.6 F L 70 22 100 12/31/23 13:30 68 14 100 100 12/31/23 13:25 100 12/31/23 12:27 100 Intake and Output 12/31/23 01/01/24 01/01/24 22:59 06:59 14:59 Intake Total 1029.692 919.718 62.905 Output Total 625 565 35 Balance 404.692 354.718 27.905 Intake: IV 272 812 59 0.9 @ 50 150 400 50 ACETAMINOPHEN IV (For NPO 100 ) 1,000 mg In Empty Bag 1 bag @ 400 mls/hr IVPB Q6HR [facility] Rx#:[id number] CO/CI 50 40 Magnesium Sulfate-D5w Pmx 100 1 gm In Dextrose/Water 1 100ml.bag @ 100 mls/hr IVPB Q1H [facility] Rx#: [id number] ceFAZolin 2 gm In Sodium 100 Chloride 0.9% 50 ml @ 100 mls/hr IVPB Q8HR [facility] Rx# :[id number] pressure bag 72 72 9 Intake, IV Titration 697.692 77.718 3.905 Amount Clevidipine Butyrate 25 18.932 55.800 mg In Empty Bag 1 bag @ 1 MG/HR 2 mls/hr IV .Q24H [facility] Rx#:[id number] Dexmedetomidine/0.9% NaCl 8.265 (Pmx) 400 mcg In Empty Bag 1 bag @ Titrate IV . Q0M [facility] Rx#:[id number] Insulin Regular 100 unit 32.977 21.918 3.905 In Sodium Chloride 0.9% 100 ml @ Per Protocol IV .Q0M [facility] Rx#:[id number] Magnesium Sulfate-D5w Pmx 300 1 gm In Dextrose/Water 1 100ml.bag @ 100 mls/hr IVPB Q1H [facility] Rx#: [id number] Nitroglycerin-D5w Pmx 50 17.35 mg In Dextrose/Water 1 250ml.bag @ 5 MCG/MIN 1.5 mls/hr IV .Q24H [facility] Rx#: [id number] Sodium Chloride 0.9% 1, 250 000 ml @ 50 mls/hr IV . Q20H [facility] Rx#:[id number] propofoL 1,000 mg In 70.168 Empty Bag 1 bag @ Titrate IV .Q0M [facility] Rx#: [id number] Oral 60 30 Output: Drainage 210 225 10 Left Lower Calf 20 Mediastinal 130 140 10 R and L pleural 80 65 0 Urine 415 340 25 Other: Voiding Method Indwelling Catheter Indwelling Catheter Weight 81.9 kg ABP, PAP, CO, CI - Last 8 Hours Arterial Blood Pressure 145/41 Arterial Blood Pressure 151/43 Arterial Blood Pressure 161/53 Arterial Blood Pressure 110/69 Arterial Blood Pressure 146/56 Arterial Blood Pressure 144/55 Arterial Blood Pressure 142/47 Arterial Blood Pressure 139/47 Arterial Blood Pressure 136/46 Arterial Blood Pressure 144/47 Arterial Blood Pressure 146/47 Arterial Blood Pressure 161/51 Arterial Blood Pressure 160/50 Arterial Blood Pressure 141/47 Arterial Blood Pressure 144/47 Arterial Blood Pressure 144/49 Arterial Blood Pressure 151/51 Arterial Blood Pressure 144/51 Arterial Blood Pressure 145/49 Arterial Blood Pressure 150/51 Arterial Blood Pressure 156/55 Arterial Blood Pressure 143/51 Arterial Blood Pressure 54/45 Arterial Blood Pressure 150/53 Arterial Blood Pressure 148/51 Arterial Blood Pressure 151/53 Arterial Blood Pressure 146/51 Pulmonary Artery Pressure 24/6 Pulmonary Artery Pressure 24/5 Pulmonary Artery Pressure 23/8 Pulmonary Artery Pressure 22/6 Pulmonary Artery Pressure 20/5 Pulmonary Artery Pressure 37/19 Pulmonary Artery Pressure 36/17 Pulmonary Artery Pressure 40/20 Pulmonary Artery Pressure 31/14 Pulmonary Artery Pressure 30/13 Pulmonary Artery Pressure 31/12 Pulmonary Artery Pressure 33/13 Pulmonary Artery Pressure 33/12 Pulmonary Artery Pressure 38/15 Pulmonary Artery Pressure 35/15 Pulmonary Artery Pressure 34/16 Pulmonary Artery Pressure 33/16 Pulmonary Artery Pressure 34/13 Pulmonary Artery Pressure 34/14 Pulmonary Artery Pressure 32/14 Pulmonary Artery Pressure 34/14 Pulmonary Artery Pressure 34/15 Pulmonary Artery Pressure 34/18 Pulmonary Artery Pressure 32/12 Pulmonary Artery Pressure 34/17 Pulmonary Artery Pressure 32/14 Pulmonary Artery Pressure 32/13 Pulmonary Artery Pressure 33/14 Pulmonary Artery Pressure 33/12 Cardiac Output 5.7 Cardiac Output 6.5 Cardiac Index 3.3 Cardiac Index 3.7 Results 01/01/24 04:00 01/01/24 04:00 Cardiac Enzymes 12/31/23 01/01/24 Range/Units 13:20 04:00 AST 27 37 H (14-36) U/L Coagulation 12/31/23 Range/Units 13:20 PT 15.0 H (10.0-12.5) sec APTT 31.7 H (22.0-30.0) sec CBC 12/31/23 12/31/23 12/31/23 Range/Units 13:20 15:53 18:05 WBC 7.6 5.4 6.5 (3.8-10.6) k/uL RBC 2.88 L 2.76 L 3.04 L (3.80-5.40) m/uL Hgb 8.0 L D 7.6 L 8.4 L (11.4-16.0) gm/dL Hct 24.5 L 23.7 L 26.4 L (34.0-46.0) % Plt Count 85 L 73 L 82 L (150-450) k/uL 01/01/24 Range/Units 04:00 WBC 13.8 H (3.8-10.6) k/uL RBC 3.24 L (3.80-5.40) m/uL Hgb 9.0 L (11.4-16.0) gm/dL Hct 27.5 L (34.0-46.0) % Plt Count 122 L (150-450) k/uL Comprehensive Metabolic Panel 12/31/23 01/01/24 Range/Units 13:20 04:00 Sodium 136 L 132 L (137-145) mmol/L Potassium 4.1 3.8 (3.5-5.1) mmol/L Chloride 108 H 106 (98-107) mmol/L Carbon Dioxide 24 20 L (22-30) mmol/L BUN 9 10 (7-17) mg/dL Creatinine 0.55 0.57 (0.52-1.04) mg/dL Glucose 116 H 120 H (74-99) mg/dL Calcium 9.4 8.6 (8.4-10.2) mg/dL AST 27 37 H (14-36) U/L ALT 12 12 (4-34) U/L Alkaline Phosphatase 61 64 (38-126) U/L Total Protein 5.1 L 5.4 L (6.3-8.2) g/dL Albumin 2.6 L 2.9 L (3.5-5.0) g/dL Current Medications Generic Name Dose Route Start Last Admin Trade Name Freq PRN Reason Stop Dose Admin Albuterol/Ipratropium 3 ml 12/31/23 20:00 12/31/23 21:21 Ipratropium-Albuterol 3 Ml Neb INHALATION 3 ml RT-QID [facility] Administration Albuterol/Ipratropium 3 ml 12/31/23 12:58 Ipratropium-Albuterol 3 Ml Neb INHALATION RT-Q2H PRN Shortness Of Breath Or Wheezing Aspirin 325 mg 01/01/24 09:00 Aspirin 325 Mg Tab PO DAILY [facility] Atorvastatin Calcium 40 mg 01/01/24 09:00 Atorvastatin 40 Mg Tab PO DAILY [facility] Benzocaine/Menthol 1 each 12/31/23 12:58 Benzocaine/Menthol Lozeng 1 Each Lozenge MUCOUS MEM Q2H PRN Sore Throat Bisacodyl 10 mg 01/01/24 09:00 Bisacodyl 10 Mg Supp RECTAL DAILY PRN Constipation Carvedilol 25 mg 01/01/24 09:00 Carvedilol 12.5 Mg Tab PO BID [facility] Clopidogrel Bisulfate 75 mg 01/01/24 09:00 Clopidogrel 75 Mg Tab PO DAILY [facility] Cyclobenzaprine HCl 10 mg 12/31/23 21:00 12/31/23 20:55 Cyclobenzaprine 10 Mg Tab PO 10 mg HS [facility] Administration Dextrose/Water 25 ml 12/31/23 12:58 Dextrose 50% Syringe 50 Ml IVP PER PROTOCOL PRN Hypoglycemia Protocol Dextrose/Water 50 ml 12/31/23 12:58 Dextrose 50% Syringe 50 Ml IVP PER PROTOCOL PRN Hypoglycemia Protocol Fentanyl Citrate 50 mcg 12/31/23 12:58 12/31/23 22:01 Fentanyl (Pf) 50 Mcg/Ml 2 Ml Amp IVP 50 mcg Q4HR PRN Administration Breakthrough Pain Gabapentin 300 mg 12/31/23 21:00 12/31/23 20:55 Gabapentin 300 Mg Cap PO 300 mg HS [facility] Administration Heparin Sodium (Porcine) 5,000 unit 12/31/23 16:00 01/01/24 01:47 Heparin Sodium,Porcine 5,000 Unit/Ml 1 Ml Vial SQ Not Given Q8HR [facility] Hydralazine HCl 10 mg 12/31/23 12:58 12/31/23 23:19 Hydralazine Hcl 20 Mg/Ml 1 Ml Vial IVP 10 mg Q1H PRN Administration Blood Pressure - High Insulin Human Regular 100 unit 101 mls @ 0 mls/hr 12/31/23 12:58 01/01/24 07:04 / Sodium Chloride IV 3.5 unit/hr .Q0M [facility] 3.535 mls/hr Titration Protocol Per Protocol Clevidipine 25 mg/ IV Solution 50 mls @ 2 mls/hr 12/31/23 12:58 01/01/24 06:39 IV 6 mg/hr .Q24H [facility] 12 mls/hr Administration Protocol 1 MG/HR Nitroglycerin/Dextrose 50 mg/ 250 mls @ 1.5 mls/hr 12/31/23 12:58 12/31/23 19:23 IV Solution IV 5 mcg/min .Q24H [facility] 1.5 mls/hr Infusion 5 MCG/MIN Amiodarone HCl 450 mg/ 250 mls @ 16.667 mls/hr 12/31/23 18:00 12/31/23 18:15 Dextrose/Water IV 01/01/24 11:59 0.5 mg/min .Q15H [facility] 16.667 mls/hr Administration Protocol 0.5 MG/MIN Amiodarone HCl 150 mg/ 103 mls @ 618 mls/hr 12/31/23 12:58 Dextrose/Water IV .Q10M PRN A.FIB/FLUTTER Albumin Human 250 ml/ IV 250 mls @ 250 mls/hr 12/31/23 12:58 Solution IVPB 01/02/24 12:57 Q1HR PRN For Volume Protocol Propofol 1,000 mg/ IV Solution 100 mls @ 0 mls/hr 12/31/23 12:58 12/31/23 17:10 IV 0 mcg/kg/min .Q0M [facility] 0 mls/hr Titration Protocol Titrate Dexmedetomidine HCl 400 mcg/ 100 mls @ 0 mls/hr 12/31/23 12:58 12/31/23 18:01 IV Solution IV 01/01/24 12:59 0 mcg/kg/hr .Q0M [facility] 0 mls/hr Titration Protocol Titrate Cefazolin Sodium 2 gm/ Sodium 50 mls @ 100 mls/hr 12/31/23 16:00 12/31/23 23:43 Chloride IVPB 01/01/24 08:29 100 mls/hr Q8HR [facility] Administration Protocol Calcium Gluconate/Sodium 100 mls @ 100 mls/hr 12/31/23 12:58 Chloride 2 gm/ IV Solution IVPB 01/30/24 12:57 ONCE PRN Ionized Calcium less than 4.4 Sodium Chloride 1,000 mls @ 50 mls/hr 12/31/23 12:58 12/31/23 13:20 Saline 0.9% IV 50 mls/hr .Q20H [facility] Administration Magnesium Hydroxide 2,400 mg 01/01/24 09:00 Magnesium Hydroxide 2,400 Mg/30 Ml Cup PO BID PRN Constipation Metoclopramide HCl 10 mg 12/31/23 12:58 Metoclopramide 5 Mg/Ml 2 Ml Vial IVP Q4H PRN Nausea And Vomiting Miscellaneous Information 1 each 12/31/23 12:58 Magnesium Replacement Protocol 1 Each Misc MISCELLANE DAILY PRN Per Protocol Protocol Miscellaneous Information 1 each 12/31/23 12:58 Potassium Replacement Protocol 1 Each Misc MISCELLANE DAILY PRN Per Protocol Protocol Ondansetron HCl 4 mg 12/31/23 12:58 Ondansetron 4 Mg/2 Ml Vial IVP Q6HR PRN Nausea And Vomiting Oxycodone HCl 10 mg 12/31/23 12:58 01/01/24 04:57 Oxycodone Hcl 5 Mg Tab PO 10 mg Q4HR PRN Administration Severe Pain (Scale 7 to 10) Pantoprazole Sodium 40 mg 01/01/24 09:00 Pantoprazole 40 Mg/10 Ml Vial IVP DAILY [facility] Pramipexole Dihydrochloride 1 mg 12/31/23 21:00 12/31/23 20:55 Pramipexole 1 Mg Tab PO 1 mg HS [facility] Administration Senna/Docusate Sodium 2 each 12/31/23 21:00 12/31/23 20:55 Sennosides-Docusate Sodium 1 Each Tab PO 2 each HS [facility] Administration Sodium Chloride 10 ml 12/31/23 21:00 12/31/23 20:55 Sodium Chloride 0.9% Flush 10 Ml Syringe IV 10 ml BID [facility] Administration Intake and Output 12/31/23 01/01/24 01/01/24 22:59 06:59 14:59 Intake Total 1029.692 919.718 62.905 Output Total 625 565 35 Balance 404.692 354.718 27.905 Intake: IV 272 812 59 0.9 @ 50 150 400 50 ACETAMINOPHEN IV (For NPO 100 ) 1,000 mg In Empty Bag 1 bag @ 400 mls/hr IVPB Q6HR [facility] Rx#:[id number] CO/CI 50 40 Magnesium Sulfate-D5w Pmx 100 1 gm In Dextrose/Water 1 100ml.bag @ 100 mls/hr IVPB Q1H [facility] Rx#: [id number] ceFAZolin 2 gm In Sodium 100 Chloride 0.9% 50 ml @ 100 mls/hr IVPB Q8HR [facility] Rx# :[id number] pressure bag 72 72 9 Intake, IV Titration 697.692 77.718 3.905 Amount Clevidipine Butyrate 25 18.932 55.800 mg In Empty Bag 1 bag @ 1 MG/HR 2 mls/hr IV .Q24H [facility] Rx#:[id number] Dexmedetomidine/0.9% NaCl 8.265 (Pmx) 400 mcg In Empty Bag 1 bag @ Titrate IV . Q0M [facility] Rx#:[id number] Insulin Regular 100 unit 32.977 21.918 3.905 In Sodium Chloride 0.9% 100 ml @ Per Protocol IV .Q0M [facility] Rx#:[id number] Magnesium Sulfate-D5w Pmx 300 1 gm In Dextrose/Water 1 100ml.bag @ 100 mls/hr IVPB Q1H [facility] Rx#: [id number] Nitroglycerin-D5w Pmx 50 17.35 mg In Dextrose/Water 1 250ml.bag @ 5 MCG/MIN 1.5 mls/hr IV .Q24H [facility] Rx#: [id number] Sodium Chloride 0.9% 1, 250 000 ml @ 50 mls/hr IV . Q20H [facility] Rx#:[id number] propofoL 1,000 mg In 70.168 Empty Bag 1 bag @ Titrate IV .Q0M [facility] Rx#: [id number] Oral 60 30 Output: Drainage 210 225 10 Left Lower Calf 20 Mediastinal 130 140 10 R and L pleural 80 65 0 Urine 415 340 25 Other: Voiding Method Indwelling Catheter Indwelling Catheter Weight 81.9 kg 01/01/24 04:00 01/01/24 04:00
[2024-01-01] MEDS: ATORVASTATIN 40 MG TAB PO SCH (08:10)
[2024-01-01] MEDS: ASPIRIN 325 MG TAB PO SCH (08:10)
[2024-01-01] MEDS: carvediloL 12.5 MG TAB PO SCH ×2 (08:10→20:49)
[2024-01-01] MEDS: CLOPIDOGREL 75 MG TAB PO SCH (08:11)
[2024-01-01 08:16] LABS: Glucose,Whole Blood 119 mg/dL (70-110)
[2024-01-01] MEDS ORDERED: bisacodyL 10 MG SUPP RECTAL PRN (09:00)
--- NOTE | 2024-01-01 09:26 | P.PN ---
Subjective Progress Note Date: 01/01/24 Principal diagnosis: Multivessel coronary artery disease. 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 POD #1 Off Pump Coronary Artery Bypass Grafting x 3. Left internal thoracic artery (in-situ) to left anterior descending coronary artery, reverse saphenous vein from aorta to obtuse marginal artery #1, reverse saphenous vein from aorta to distal coronary artery. Left Atrial Appendage Ligation with #35mm AtriClip, endoscopic bilateral greater saphenous vein harvest, graft flow measurements using the [employer]-stim flow meter system, intraoperative transesophageal echocardiogram completed by anesthesia. Postoperative acute blood loss anemia and thrombocytopenia, expected given hemodilution and her preoperative anemia and thrombocytopenia. The patient was seen and examined in follow-up today January 01, 2024 at her bedside in the intensive care unit. She was successfully extubated at 6:43 PM last evening, is currently on 2 L nasal cannula with oxygen saturations 97% and she is achieving 500 mL on her incentive spirometry with encouragement. The patient is currently sitting up to the bedside chair, is awake, alert, oriented x 3 and is in no acute apparent distress. She denies any complaints of shortne ss of breath at this time, although is complaining of some surgical type pain to her chest tube insertion sites. Currently rating her pain 5 out of 10 on the pain scale. Mediastinal, right and left pleural chest tubes remain in place to low continuous wall suction -20 cm H2O. No air leak is present. Mediastinal chest tube draining 140 mL of thin serosanguineous drainage in the last 8 hours and 300 mL since surgery. Right and left pleural chest tubes draining thin serosanguineous drainage with 65 mL output in the last 8 hours and 140 mL output since surgery. Right IJ cordis and Woodford-Pedro catheter remains in place with current hemodynamic showing a cardiac output of 5.7, cardiac index 3.3, PA pressures 24/6 and a CVP of 1 mmHg. Bedside telemetry is showing normal sinus rhythm heart rate of 71 bpm. Ventricular epicardial pacemaker wires are in place and are connected to backup bedside pacemaker generator on a VVI of 50 bpm. Chest x-ray and laboratory results were reviewed. Objective - Vital Signs Vital signs: Vital Signs Temp 99.7 F H 01/01/24 08:00 Pulse 73 01/01/24 08:30 Resp 17 01/01/24 08:30 BP 151/62 01/01/24 06:45 Pulse Ox 93 L 01/01/24 08:30 FiO2 40 12/31/23 18:01 Intake & Output 12/31/23 01/01/24 01/01/24 18:59 06:59 18:59 Intake Total 8743.239 5871.131 89.077 Output Total 1235 770 35 Balance -52.089 462.131 54.077 Weight 81.9 kg Intake: IV 137 1009 59 0.9 @ 50 550 50 ACETAMINOPHEN IV (For NPO 100 ) 1,000 mg In Empty Bag 1 bag @ 400 mls/hr IVPB Q6HR GERTRUDIS Rx#:[id number] CO/CI 30 60 Magnesium Sulfate-D5w Pmx 100 1 gm In Dextrose/Water 1 100ml.bag @ 100 mls/hr IVPB Q1H GERTURDIS Rx#: [id number] ceFAZolin 2 gm In Sodium 100 Chloride 0.9% 50 ml @ 100 mls/hr IVPB Q8HR GERTRUDIS Rx# :[id number] pressure bag 54 99 9 Intake, IV Titration 1045.911 133.131 30.077 Amount Albumin Human 5% 250 ml 250 In Empty Bag 1 bag @ 250 mls/hr IVPB Q1HR PRN Rx#: [id number] Clevidipine Butyrate 25 74.732 21.4 mg In Empty Bag 1 bag @ 1 MG/HR 2 mls/hr IV .Q24H GERTRUDIS Rx#:[id number] Dexmedetomidine/0.9% NaCl 8.265 (Pmx) 400 mcg In Empty Bag 1 bag @ Titrate IV . Q0M GERTRUDIS Rx#:[id number] Insulin Regular 100 unit 14.342 41.049 8.677 In Sodium Chloride 0.9% 100 ml @ Per Protocol IV .Q0M GERTRUDIS Rx#:[id number] Magnesium Sulfate-D5w Pmx 400 1 gm In Dextrose/Water 1 100ml.bag @ 100 mls/hr IVPB Q1H GERTRUDIS Rx#: [id number] Nitroglycerin-D5w Pmx 50 17.35 mg In Dextrose/Water 1 250ml.bag @ 5 MCG/MIN 1.5 mls/hr IV .Q24H GERTRUDIS Rx#: [id number] Sodium Chloride 0.9% 1, 300 000 ml @ 50 mls/hr IV . Q20H [facility]ERTRUD[facility] Rx#:[id number] propofoL 1,000 mg In 73.304 Empty Bag 1 bag @ Titrate IV .Q0M GERTRUDIS Rx#: [id number] Oral 90 Output: Drainage 150 330 10 Left Lower Calf 20 20 Mediastinal 100 190 10 R and L pleural 30 120 0 Urine 710 440 25 Estimated Blood Loss 375 Other: Voiding Method Indwelling Catheter Indwelling Catheter ABP, PAP, CO, CI - Last Documented Arterial Blood Pressure 143/46 Pulmonary Artery Pressure 32/6 Cardiac Output 5.7 Cardiac Index 3.3 - Exam CONSTITUTIONAL: Sitting up to the bedside chair in the intensive care unit, appears comfortable, cooperative, no apparent acute distress. HEENT: Neck is supple, no JVD, no lymphadenopathy. Right IJ Cordis and Woodford- Pedro catheter in place and functioning. RESPIRATORY: Lungs sounds essentially clear throughout, diminished to her bilateral bases. Respirations are symmetrical and nonlabored. Currently on 2 L nasal cannula with oxygen saturations 97%. Able to achieve 500 mL on her incentive spirometry. Strong cough. CARDIOVASCULAR: Regular rhythm and rate. S1 and S2 present, negative for S3, gallop or murmur. Sternum is stable. Palpable peripheral pulses bilaterally. No calf pain or tenderness noted. Heart hugger in place with patient demonstrating appropriate use. Knee-high BASHIR hose and sequential compression devices in place to his bilateral lower extremities. GASTROINTESTINAL: Abdomen soft, nontender, nondistended. Hypoactive bowel sounds present 4 quadrants. Tolerating clear liquid diet. Denies passing flatus. No guarding or rigidity. GENITOURINARY: Jennings present draining clear, yellow urine. Urine output 340 mL in the last 8 hours. INTEGUMENTARY: Skin is warm and dry with no evidence of clubbing or cyanosis. Midline sternal incision clean dry and well approximated, covered with dry intact dressing. Bilateral lower extremity EVH sites well approximated without redness or drainage. NEUROLOGIC: Cranial nerves II through XII intact. No focal deficits. MUSKULOSKELETAL: Able to move all extremities, strength equal bilaterally, generalized weakness. PSYCHIATRIC: Alert and oriented to person place and time, appropriate affect, intact judgment and insight. INVASIVE LINES AND TUBES: Mediastinal/left/right pleural chest tubes present and connected to low continuous wall suction, no air leaks present. Mediastinal tube with 140 mL of thin serosanguineous drainage overnight, 300 mL output in the last 24 hours. Left/right pleural chest tubes with 65 mL of thin serosanguineous drainage overnight, 140 mL output in the last 24 hours. Ventricular epicardial pacemaker wires present, connected to generator, VVI backup rate 50 bpm. Right internal jugular Woodford/Cordis, right radial arterial line present. Last CO 5.7, CI 3.3, PA 24/6 and CVP 1 mmHg. Left lower extremity THOMAS drain in place with scant thin serosanguineous drainage with 20 mL output in the last 8 hours. - Allied health notes Allied health notes reviewed: nursing - Labs CBC & Chem 7: 01/01/24 04:00 01/01/24 04:00 Labs: Abnormal Lab Results - Last 24 Hours (Table) 12/25/23 12/31/23 12/31/23 Range/Units 08:52 08:25 08:35 WBC (3.8-10.6) k/uL RBC (3.80-5.40) m/uL Hgb (11.4-16.0) gm/dL Hct (34.0-46.0) % Plt Count (150-450) k/uL Neutrophils # (1.3-7.7) k/uL Lymphocytes # (1.0-4.8) k/uL PT (10.0-12.5) sec INR (<1.2) APTT (22.0-30.0) sec ABG pH 7.47 H (7.35-7.45) ABG pCO2 (35-45) mmHg ABG pO2 208 H 301 H (83-108) mmHg ABG HCO3 27 H 26 H (21-25) mmol/L ABG Total CO2 (19-24) mmol/L ABG O2 Saturation >99.4 H >99.4 H (94-97) % ABG Hematocrit 26 L 19 L* (34.0-46.0) % ABG Glucose 112 H 134 H (75-99) mg/dL ABG Lactic Acid (0.5-1.6) mmol/L Hemoglobin 8.5 L 6.3 L* (11.4-16.0) gm/dL Sodium (137-145) mmol/L Chloride (98-107) mmol/L Carbon Dioxide (22-30) mmol/L Glucose (74-99) mg/dL POC Glucose (mg/dL) (70-110) mg/dL Magnesium (1.6-2.3) mg/dL AST (14-36) U/L Total Protein (6.3-8.2) g/dL Albumin (3.5-5.0) g/dL Arterial Blood Glucose 112 H 134 H (75-99) mg/dL Crossmatch See Detail 12/31/23 12/31/23 12/31/23 Range/Units 09:42 10:13 10:49 WBC (3.8-10.6) k/uL RBC (3.80-5.40) m/uL Hgb (11.4-16.0) gm/dL Hct (34.0-46.0) % Plt Count (150-450) k/uL Neutrophils # (1.3-7.7) k/uL Lymphocytes # (1.0-4.8) k/uL PT (10.0-12.5) sec INR (<1.2) APTT (22.0-30.0) sec ABG pH 7.48 H 7.46 H (7.35-7.45) ABG pCO2 (35-45) mmHg ABG pO2 280 H 324 H 334 H (83-108) mmHg ABG HCO3 27 H 26 H 26 H (21-25) mmol/L ABG Total CO2 (19-24) mmol/L ABG O2 Saturation >99.4 H >99.4 H >99.4 H (94-97) % ABG Hematocrit 23 L 24 L 23 L (34.0-46.0) % ABG Glucose 124 H 138 H 135 H (75-99) mg/dL ABG Lactic Acid (0.5-1.6) mmol/L Hemoglobin 7.4 L 8.0 L 7.6 L (11.4-16.0) gm/dL Sodium (137-145) mmol/L Chloride (98-107) mmol/L Carbon Dioxide (22-30) mmol/L Glucose (74-99) mg/dL POC Glucose (mg/dL) (70-110) mg/dL Magnesium (1.6-2.3) mg/dL AST (14-36) U/L Total Protein (6.3-8.2) g/dL Albumin (3.5-5.0) g/dL Arterial Blood Glucose 124 H 138 H 135 H (75-99) mg/dL Crossmatch 12/31/23 12/31/23 12/31/23 Range/Units 11:55 13:20 13:20 WBC (3.8-10.6) k/uL RBC 2.88 L (3.80-5.40) m/uL Hgb 8.0 L D (11.4-16.0) gm/dL Hct 24.5 L (34.0-46.0) % Plt Count 85 L (150-450) k/uL Neutrophils # (1.3-7.7) k/uL Lymphocytes # (1.0-4.8) k/uL PT 15.0 H (10.0-12.5) sec INR 1.5 H (<1.2) APTT 31.7 H (22.0-30.0) sec ABG pH (7.35-7.45) ABG pCO2 (35-45) mmHg ABG pO2 322 H (83-108) mmHg ABG HCO3 (21-25) mmol/L ABG Total CO2 (19-24) mmol/L ABG O2 Saturation >99.4 H (94-97) % ABG Hematocrit 23 L (34.0-46.0) % ABG Glucose 118 H (75-99) mg/dL ABG Lactic Acid 1.9 H (0.5-1.6) mmol/L Hemoglobin 7.4 L (11.4-16.0) gm/dL Sodium (137-145) mmol/L Chloride (98-107) mmol/L Carbon Dioxide (22-30) mmol/L Glucose (74-99) mg/dL POC Glucose (mg/dL) (70-110) mg/dL Magnesium (1.6-2.3) mg/dL AST (14-36) U/L Total Protein (6.3-8.2) g/dL Albumin (3.5-5.0) g/dL Arterial Blood Glucose 118 H (75-99) mg/dL Crossmatch 12/31/23 12/31/23 12/31/23 Range/Units 13:20 13:23 13:55 WBC (3.8-10.6) k/uL RBC (3.80-5.40) m/uL Hgb (11.4-16.0) gm/dL Hct (34.0-46.0) % Plt Count (150-450) k/uL Neutrophils # (1.3-7.7) k/uL Lymphocytes # (1.0-4.8) k/uL PT (10.0-12.5) sec INR (<1.2) APTT (22.0-30.0) sec ABG pH (7.35-7.45) ABG pCO2 (35-45) mmHg ABG pO2 (83-108) mmHg ABG HCO3 (21-25) mmol/L ABG Total CO2 (19-24) mmol/L ABG O2 Saturation (94-97) % ABG Hematocrit (34.0-46.0) % ABG Glucose (75-99) mg/dL ABG Lactic Acid (0.5-1.6) mmol/L Hemoglobin (11.4-16.0) gm/dL Sodium 136 L (137-145) mmol/L Chloride 108 H (98-107) mmol/L Carbon Dioxide (22-30) mmol/L Glucose 116 H (74-99) mg/dL POC Glucose (mg/dL) 117 H 129 H (70-110) mg/dL Magnesium 1.0 L (1.6-2.3) mg/dL AST (14-36) U/L Total Protein 5.1 L (6.3-8.2) g/dL Albumin 2.6 L (3.5-5.0) g/dL Arterial Blood Glucose (75-99) mg/dL Crossmatch 12/31/23 12/31/23 12/31/23 Range/Units 13:56 15:03 15:53 WBC (3.8-10.6) k/uL RBC 2.76 L (3.80-5.40) m/uL Hgb 7.6 L (11.4-16.0) gm/dL Hct 23.7 L (34.0-46.0) % Plt Count 73 L (150-450) k/uL Neutrophils # (1.3-7.7) k/uL Lymphocytes # 0.6 L (1.0-4.8) k/uL PT (10.0-12.5) sec INR (<1.2) APTT (22.0-30.0) sec ABG pH (7.35-7.45) ABG pCO2 46 H (35-45) mmHg ABG pO2 312 H (83-108) mmHg ABG HCO3 (21-25) mmol/L ABG Total CO2 27 H (19-24) mmol/L ABG O2 Saturation 100.6 H (94-97) % ABG Hematocrit (34.0-46.0) % ABG Glucose (75-99) mg/dL ABG Lactic Acid (0.5-1.6) mmol/L Hemoglobin (11.4-16.0) gm/dL Sodium (137-145) mmol/L Chloride (98-107) mmol/L Carbon Dioxide (22-30) mmol/L Glucose (74-99) mg/dL POC Glucose (mg/dL) 186 H (70-110) mg/dL Magnesium (1.6-2.3) mg/dL AST (14-36) U/L Total Protein (6.3-8.2) g/dL Albumin (3.5-5.0) g/dL Arterial Blood Glucose (75-99) mg/dL Crossmatch 12/31/23 12/31/23 12/31/23 Range/Units 15:59 17:09 18:04 WBC (3.8-10.6) k/uL RBC (3.80-5.40) m/uL Hgb (11.4-16.0) gm/dL Hct (34.0-46.0) % Plt Count (150-450) k/uL Neutrophils # (1.3-7.7) k/uL Lymphocytes # (1.0-4.8) k/uL PT (10.0-12.5) sec INR (<1.2) APTT (22.0-30.0) sec ABG pH (7.35-7.45) ABG pCO2 (35-45) mmHg ABG pO2 (83-108) mmHg ABG HCO3 (21-25) mmol/L ABG Total CO2 (19-24) mmol/L ABG O2 Saturation (94-97) % ABG Hematocrit (34.0-46.0) % ABG Glucose (75-99) mg/dL ABG Lactic Acid (0.5-1.6) mmol/L Hemoglobin (11.4-16.0) gm/dL Sodium (137-145) mmol/L Chloride (98-107) mmol/L Carbon Dioxide (22-30) mmol/L Glucose (74-99) mg/dL POC Glucose (mg/dL) 209 H 212 H 206 H (70-110) mg/dL Magnesium (1.6-2.3) mg/dL AST (14-36) U/L Total Protein (6.3-8.2) g/dL Albumin (3.5-5.0) g/dL Arterial Blood Glucose (75-99) mg/dL Crossmatch 12/31/23 12/31/23 12/31/23 Range/Units 18:05 18:34 18:52 WBC (3.8-10.6) k/uL RBC 3.04 L (3.80-5.40) m/uL Hgb 8.4 L (11.4-16.0) gm/dL Hct 26.4 L (34.0-46.0) % Plt Count 82 L (150-450) k/uL Neutrophils # (1.3-7.7) k/uL Lymphocytes # 0.6 L (1.0-4.8) k/uL PT (10.0-12.5) sec INR (<1.2) APTT (22.0-30.0) sec ABG pH (7.35-7.45) ABG pCO2 (35-45) mmHg ABG pO2 139 H (83-108) mmHg ABG HCO3 (21-25) mmol/L ABG Total CO2 25 H (19-24) mmol/L ABG O2 Saturation 99.8 H (94-97) % ABG Hematocrit (34.0-46.0) % ABG Glucose (75-99) mg/dL ABG Lactic Acid (0.5-1.6) mmol/L Hemoglobin (11.4-16.0) gm/dL Sodium (137-145) mmol/L Chloride (98-107) mmol/L Carbon Dioxide (22-30) mmol/L Glucose (74-99) mg/dL POC Glucose (mg/dL) 193 H (70-110) mg/dL Magnesium (1.6-2.3) mg/dL AST (14-36) U/L Total Protein (6.3-8.2) g/dL Albumin (3.5-5.0) g/dL Arterial Blood Glucose (75-99) mg/dL Crossmatch 12/31/23 12/31/23 12/31/23 Range/Units 19:57 21:59 23:01 WBC (3.8-10.6) k/uL RBC (3.80-5.40) m/uL Hgb (11.4-16.0) gm/dL Hct (34.0-46.0) % Plt Count (150-450) k/uL Neutrophils # (1.3-7.7) k/uL Lymphocytes # (1.0-4.8) k/uL PT (10.0-12.5) sec INR (<1.2) APTT (22.0-30.0) sec ABG pH (7.35-7.45) ABG pCO2 (35-45) mmHg ABG pO2 (83-108) mmHg ABG HCO3 (21-25) mmol/L ABG Total CO2 (19-24) mmol/L ABG O2 Saturation (94-97) % ABG Hematocrit (34.0-46.0) % ABG Glucose (75-99) mg/dL ABG Lactic Acid (0.5-1.6) mmol/L Hemoglobin (11.4-16.0) gm/dL Sodium (137-145) mmol/L Chloride (98-107) mmol/L Carbon Dioxide (22-30) mmol/L Glucose (74-99) mg/dL POC Glucose (mg/dL) 143 H 119 H 146 H (70-110) mg/dL Magnesium (1.6-2.3) mg/dL AST (14-36) U/L Total Protein (6.3-8.2) g/dL Albumin (3.5-5.0) g/dL Arterial Blood Glucose (75-99) mg/dL Crossmatch 12/31/23 01/01/24 01/01/24 Range/Units 23:46 01:01 01:59 WBC (3.8-10.6) k/uL RBC (3.80-5.40) m/uL Hgb (11.4-16.0) gm/dL Hct (34.0-46.0) % Plt Count (150-450) k/uL Neutrophils # (1.3-7.7) k/uL Lymphocytes # (1.0-4.8) k/uL PT (10.0-12.5) sec INR (<1.2) APTT (22.0-30.0) sec ABG pH (7.35-7.45) ABG pCO2 (35-45) mmHg ABG pO2 (83-108) mmHg ABG HCO3 (21-25) mmol/L ABG Total CO2 (19-24) mmol/L ABG O2 Saturation (94-97) % ABG Hematocrit (34.0-46.0) % ABG Glucose (75-99) mg/dL ABG Lactic Acid (0.5-1.6) mmol/L Hemoglobin (11.4-16.0) gm/dL Sodium (137-145) mmol/L Chloride (98-107) mmol/L Carbon Dioxide (22-30) mmol/L Glucose (74-99) mg/dL POC Glucose (mg/dL) 155 H 125 H 113 H (70-110) mg/dL Magnesium (1.6-2.3) mg/dL AST (14-36) U/L Total Protein (6.3-8.2) g/dL Albumin (3.5-5.0) g/dL Arterial Blood Glucose (75-99) mg/dL Crossmatch 01/01/24 01/01/24 01/01/24 Range/Units 02:53 04:00 04:00 WBC 13.8 H (3.8-10.6) k/uL RBC 3.24 L (3.80-5.40) m/uL Hgb 9.0 L (11.4-16.0) gm/dL Hct 27.5 L (34.0-46.0) % Plt Count 122 L (150-450) k/uL Neutrophils # 11.2 H (1.3-7.7) k/uL Lymphocytes # (1.0-4.8) k/uL PT (10.0-12.5) sec INR (<1.2) APTT (22.0-30.0) sec ABG pH (7.35-7.45) ABG pCO2 (35-45) mmHg ABG pO2 (83-108) mmHg ABG HCO3 (21-25) mmol/L ABG Total CO2 (19-24) mmol/L ABG O2 Saturation (94-97) % ABG Hematocrit (34.0-46.0) % ABG Glucose (75-99) mg/dL ABG Lactic Acid (0.5-1.6) mmol/L Hemoglobin (11.4-16.0) gm/dL Sodium 132 L (137-145) mmol/L Chloride (98-107) mmol/L Carbon Dioxide 20 L (22-30) mmol/L Glucose 120 H (74-99) mg/dL POC Glucose (mg/dL) 123 H (70-110) mg/dL Magnesium (1.6-2.3) mg/dL AST 37 H (14-36) U/L Total Protein 5.4 L (6.3-8.2) g/dL Albumin 2.9 L (3.5-5.0) g/dL Arterial Blood Glucose (75-99) mg/dL Crossmatch 01/01/24 01/01/24 01/01/24 Range/Units 04:03 05:08 06:05 WBC (3.8-10.6) k/uL RBC (3.80-5.40) m/uL Hgb (11.4-16.0) gm/dL Hct (34.0-46.0) % Plt Count (150-450) k/uL Neutrophils # (1.3-7.7) k/uL Lymphocytes # (1.0-4.8) k/uL PT (10.0-12.5) sec INR (<1.2) APTT (22.0-30.0) sec ABG pH (7.35-7.45) ABG pCO2 (35-45) mmHg ABG pO2 (83-108) mmHg ABG HCO3 (21-25) mmol/L ABG Total CO2 (19-24) mmol/L ABG O2 Saturation (94-97) % ABG Hematocrit (34.0-46.0) % ABG Glucose (75-99) mg/dL ABG Lactic Acid (0.5-1.6) mmol/L Hemoglobin (11.4-16.0) gm/dL Sodium (137-145) mmol/L Chloride (98-107) mmol/L Carbon Dioxide (22-30) mmol/L Glucose (74-99) mg/dL POC Glucose (mg/dL) 128 H 119 H 146 H (70-110) mg/dL Magnesium (1.6-2.3) mg/dL AST (14-36) U/L Total Protein (6.3-8.2) g/dL Albumin (3.5-5.0) g/dL Arterial Blood Glucose (75-99) mg/dL Crossmatch 01/01/24 01/01/24 Range/Units 07:01 08:13 WBC (3.8-10.6) k/uL RBC (3.80-5.40) m/uL Hgb (11.4-16.0) gm/dL Hct (34.0-46.0) % Plt Count (150-450) k/uL Neutrophils # (1.3-7.7) k/uL Lymphocytes # (1.0-4.8) k/uL PT (10.0-12.5) sec INR (<1.2) APTT (22.0-30.0) sec ABG pH (7.35-7.45) ABG pCO2 (35-45) mmHg ABG pO2 (83-108) mmHg ABG HCO3 (21-25) mmol/L ABG Total CO2 (19-24) mmol/L ABG O2 Saturation (94-97) % ABG Hematocrit (34.0-46.0) % ABG Glucose (75-99) mg/dL ABG Lactic Acid (0.5-1.6) mmol/L Hemoglobin (11.4-16.0) gm/dL Sodium (137-145) mmol/L Chloride (98-107) mmol/L Carbon Dioxide (22-30) mmol/L Glucose (74-99) mg/dL POC Glucose (mg/dL) 131 H 119 H (70-110) mg/dL Magnesium (1.6-2.3) mg/dL AST (14-36) U/L Total Protein (6.3-8.2) g/dL Albumin (3.5-5.0) g/dL Arterial Blood Glucose (75-99) mg/dL Crossmatch - Imaging and Cardiology Chest x-ray: report reviewed, image reviewed Assessment and Plan Assessment: Triple-vessel coronary artery disease, status post three-vessel off-pump coronary artery bypass grafting surgery Hypertension Hyperlipidemia, cholesterol 149, LDL 82 Insulin-dependent diabetes, hemoglobin A1c 9% Nonalcoholic liver cirrhosis, MELD score 8, child Moreau score 6, class A Chronic ongoing tobacco dependence Chronic anemia, with a preoperative hemoglobin of 10.4 Chronic thrombocytopenia, preoperative platelet count of 94 Family history of coronary artery disease Postoperative acute blood loss anemia and thrombocytopenia, expected given hemodilution and her preoperative anemia and thrombocytopenia Plan: Continue to maximize medical therapy with aspirin, statin, Plavix and beta yashira. Will increase beta yashira therapy as tolerated, currently on her home dose of Coreg 25 mg p.o. twice daily. Wean O2 as tolerated, encourage incentive spirometry use 10 times every hour while awake, bronchodilators per pulmonology. Increase activity, ambulate as tolerated. PT/OT/cardiac rehab consulted. Discontinue Cleviprex drip, start amlodipine 10 mg p.o. daily for radial artery spasm prophylaxis. Patient takes amlodipine 10 mg p.o. daily at home. Discontinue nitroglycerin drip. Once IV amiodarone protocol has finished, transition to amiodarone 400 mg p.o. twice daily for atrial fibrillation prophylaxis. No atrial fibrillation has been reported, currently in normal sinus rhythm. Will monitor daily labs and chest x-rays. Electrolyte replacement per protocol. GI/DVT prophylaxis. Insulin management per internal medicine, patient should remain on IV insulin for 48 hours and then may transition to subcutaneous per protocol. The patient is an insulin dependent diabetic, with a preoperative hemoglobin A1c 9.0%. Pain control per current medication regimen. Discontinue Woodford. Connect Cordis to continuous CVP monitoring. Keep mediastinal, right and left pleural chest tubes in place for another 24 hours, monitor output. Continue Jennings catheter for another 24 hours, continue to monitor and record strict accurate intake and output. Daily weights. More recommendations to follow based on patient's clinical course. Time with Patient: Greater than 30
[2024-01-01] MEDS ORDERED: amLODIPine 5 MG TAB PO SCH (09:30)
[2024-01-01 10:09] LABS: Glucose,Whole Blood 134 mg/dL (70-110)
[2024-01-01] MEDS: AMIODARONE 200 MG TAB PO SCH (10:45)
[2024-01-01] MEDS: amLODIPine 10 MG TAB PO SCH (10:46)
--- NOTE | 2024-01-01 10:57 | P.PN ---
Subjective Progress Note Date: 01/01/24 This is a 78-year-old female patient with a known history of chronic tobacco dependence, chronic anemia, nonalcoholic liver cirrhosis, insulin-dependent diabetes mellitus, hyperlipidemia, hypertension and recently found to have triple-vessel coronary artery disease. She was brought in electively today and had undergone an off-pump coronary artery bypass grafting x 3 with a GARCIA to the LAD, reverse saphenous vein to the obtuse marginal artery 1, reverse saphenous grain from to the distal right coronary artery and left atrial appendage ligation. She is seen postoperatively in the intensive care unit. She is intubated on the mechanical ventilator currently on assist-control mode with a rate of 14, tidal volume 350, FiO2 50% and a PEEP of 10. Blood gases revealed a PaO2 of 312, pCO2 45 and a pH of 7.35 and 100% FiO2. She is sedated on propofol at 50 mcg/kg/min. She is on amiodarone drip at 1 mg/min. Insulin drip at 0.5 units an hour. Nitroglycerin drip at 10 mcg/min. Normal saline at 50 MLS per hour. Cardiac output 3.8. Cardiac index 2.2. PA pressures 27/12. CVP 6. Afebrile. Hemodynamically stable. Chest x-ray revealed bilateral consolidation and pleural effusion. No sizable pneumothorax. Right left and mediastinal chest tubes in place. White count 7.6. Hemoglobin 8.0. Platelets 85,000. INR 1.5. Sodium 136. Potassium 4.1. Bicarb 24. BUN 9. Creatinine 0.55. Glucose 117. Albumin 2.6. She is continued on bronchodilators. Heparin for DVT prophylaxis. The patient is seen today January 01, 2024 in follow-up in the intensive care unit. She is currently sitting up in a chair. Awake and alert in no acute distress. She is maintaining good O2 saturations in the 90s on 2 L/min per nasal cannula. She remains on normal saline at 50 MLS per hour. Nitroglycerin drip at 5 mcg/min. Cleviprex at 6 mg an hour. Amiodarone at 0.5 mg/min. Insulin drip at 3 units/h. Cardiac output 5.7. Cardiac index 3.3. PA pressure 25/7. CVP 2. Afebrile. Hemodynamically stable. Chest x-ray reveals increased pulmonary venous congestion and increased patchy infiltrate in the left lower lobe. Mediastinal, left and right chest tubes remain in place. She is encouraged re garding the increased use of the incentive spirometer. White count 13.8. Hemoglobin 9.0. Platelets 122. Sodium 132. Potassium 3.8. Bicarb 20. BUN 10. Creatinine 0.57. Glucose 120. She is continued on DuoNeb inhalations. Heparin for DVT prophylaxis. Objective - Vital Signs Vital signs: Vital Signs Temp 99.7 F H 01/01/24 08:00 Pulse 69 01/01/24 09:00 Resp 16 01/01/24 09:00 BP 151/62 01/01/24 06:45 Pulse Ox 96 01/01/24 09:00 FiO2 40 12/31/23 18:01 Intake & Output 12/31/23 01/01/24 01/01/24 18:59 06:59 18:59 Intake Total 1690.411 7940.131 202.874 Output Total 1235 770 80 Balance -52.089 462.131 122.874 Weight 81.9 kg Intake: IV 137 1009 168 0.9 @ 50 550 100 ACETAMINOPHEN IV (For NPO 100 ) 1,000 mg In Empty Bag 1 bag @ 400 mls/hr IVPB Q6HR [facility] Rx#:[id number] CO/CI 30 60 Magnesium Sulfate-D5w Pmx 100 1 gm In Dextrose/Water 1 100ml.bag @ 100 mls/hr IVPB Q1H [facility] Rx#: [id number] ceFAZolin 2 gm In Sodium 100 50 Chloride 0.9% 50 ml @ 100 mls/hr IVPB Q8HR [facility] Rx# :[id number] pressure bag 54 99 18 Intake, IV Titration 1045.911 133.131 34.874 Amount Albumin Human 5% 250 ml 250 In Empty Bag 1 bag @ 250 mls/hr IVPB Q1HR PRN Rx#: [id number] Clevidipine Butyrate 25 74.732 21.4 mg In Empty Bag 1 bag @ 1 MG/HR 2 mls/hr IV .Q24H [facility] Rx#:[id number] Dexmedetomidine/0.9% NaCl 8.265 (Pmx) 400 mcg In Empty Bag 1 bag @ Titrate IV . Q0M [facility] Rx#:[id number] Insulin Regular 100 unit 14.342 41.049 13.474 In Sodium Chloride 0.9% 100 ml @ Per Protocol IV .Q0M [facility] Rx#:[id number] Magnesium Sulfate-D5w Pmx 400 1 gm In Dextrose/Water 1 100ml.bag @ 100 mls/hr IVPB Q1H [facility] Rx#: [id number] Nitroglycerin-D5w Pmx 50 17.35 mg In Dextrose/Water 1 250ml.bag @ 5 MCG/MIN 1.5 mls/hr IV .Q24H [facility] Rx#: [id number] Sodium Chloride 0.9% 1, 300 000 ml @ 50 mls/hr IV . Q20H [facility] Rx#:[id number] propofoL 1,000 mg In 73.304 Empty Bag 1 bag @ Titrate IV .Q0M [facility] Rx#: [id number] Oral 90 Output: Chest Tube Drainage 30 L and R pleural 30 mediastinal 0 Drainage 150 330 10 Left Lower Calf 20 20 Mediastinal 100 190 10 R and L pleural 30 120 0 Urine 710 440 40 Estimated Blood Loss 375 Other: Voiding Method Indwelling Catheter Indwelling Catheter ABP, PAP, CO, CI - Last Documented Arterial Blood Pressure 135/40 Pulmonary Artery Pressure 25/7 Cardiac Output 5.7 Cardiac Index 3.3 - Exam GENERAL EXAM: Awake, alert 78-year-old female patient, on 2 L nasal cannula, up in a chair, in no apparent distress. HEAD: Normocephalic. EYES: Normal reaction of pupils, equal size. NOSE: Clear with pink turbinates. THROAT: No erythema or exudates. NECK: Right IJ Covert-Pedro catheter in place. No masses, no JVD. CHEST: Sternal dressing dry and intact. Heart hugger in place. Mediastinal, right/left chest tubes in place LUNGS: Equal air entry with few scattered rhonchi. CVS: S1 and S2 normal with no audible murmur, regular rhythm. ABDOMEN: No hepatosplenomegaly, normal bowel sounds, no guarding or rigidity. SPINE: No scoliosis or deformity SKIN: No rashes CENTRAL NERVOUS SYSTEM: Sedated, tone is normal in all 4 extremities. EXTREMITIES: Right brachial arterial line in place. SCDs in place, there is no peripheral edema. Peripheral pulses are intact. - Labs CBC & Chem 7: 01/01/24 04:00 01/01/24 04:00 Labs: Abnormal Lab Results - Last 24 Hours (Table) 12/25/23 12/31/23 12/31/23 Range/Units 08:52 08:25 08:35 WBC (3.8-10.6) k/uL RBC (3.80-5.40) m/uL Hgb (11.4-16.0) gm/dL Hct (34.0-46.0) % Plt Count (150-450) k/uL Neutrophils # (1.3-7.7) k/uL Lymphocytes # (1.0-4.8) k/uL PT (10.0-12.5) sec INR (<1.2) APTT (22.0-30.0) sec ABG pH 7.47 H (7.35-7.45) ABG pCO2 (35-45) mmHg ABG pO2 208 H 301 H (83-108) mmHg ABG HCO3 27 H 26 H (21-25) mmol/L ABG Total CO2 (19-24) mmol/L ABG O2 Saturation >99.4 H >99.4 H (94-97) % ABG Hematocrit 26 L 19 L* (34.0-46.0) % ABG Glucose 112 H 134 H (75-99) mg/dL ABG Lactic Acid (0.5-1.6) mmol/L Hemoglobin 8.5 L 6.3 L* (11.4-16.0) gm/dL Sodium (137-145) mmol/L Chloride (98-107) mmol/L Carbon Dioxide (22-30) mmol/L Glucose (74-99) mg/dL POC Glucose (mg/dL) (70-110) mg/dL Magnesium (1.6-2.3) mg/dL AST (14-36) U/L Total Protein (6.3-8.2) g/dL Albumin (3.5-5.0) g/dL Arterial Blood Glucose 112 H 134 H (75-99) mg/dL Crossmatch See Detail 12/31/23 12/31/23 12/31/23 Range/Units 09:42 10:13 10:49 WBC (3.8-10.6) k/uL RBC (3.80-5.40) m/uL Hgb (11.4-16.0) gm/dL Hct (34.0-46.0) % Plt Count (150-450) k/uL Neutrophils # (1.3-7.7) k/uL Lymphocytes # (1.0-4.8) k/uL PT (10.0-12.5) sec INR (<1.2) APTT (22.0-30.0) sec ABG pH 7.48 H 7.46 H (7.35-7.45) ABG pCO2 (35-45) mmHg ABG pO2 280 H 324 H 334 H (83-108) mmHg ABG HCO3 27 H 26 H 26 H (21-25) mmol/L ABG Total CO2 (19-24) mmol/L ABG O2 Saturation >99.4 H >99.4 H >99.4 H (94-97) % ABG Hematocrit 23 L 24 L 23 L (34.0-46.0) % ABG Glucose 124 H 138 H 135 H (75-99) mg/dL ABG Lactic Acid (0.5-1.6) mmol/L Hemoglobin 7.4 L 8.0 L 7.6 L (11.4-16.0) gm/dL Sodium (137-145) mmol/L Chloride (98-107) mmol/L Carbon Dioxide (22-30) mmol/L Glucose (74-99) mg/dL POC Glucose (mg/dL) (70-110) mg/dL Magnesium (1.6-2.3) mg/dL AST (14-36) U/L Total Protein (6.3-8.2) g/dL Albumin (3.5-5.0) g/dL Arterial Blood Glucose 124 H 138 H 135 H (75-99) mg/dL Crossmatch 12/31/23 12/31/23 12/31/23 Range/Units 11:55 13:20 13:20 WBC (3.8-10.6) k/uL RBC 2.88 L (3.80-5.40) m/uL Hgb 8.0 L D (11.4-16.0) gm/dL Hct 24.5 L (34.0-46.0) % Plt Count 85 L (150-450) k/uL Neutrophils # (1.3-7.7) k/uL Lymphocytes # (1.0-4.8) k/uL PT 15.0 H (10.0-12.5) sec INR 1.5 H (<1.2) APTT 31.7 H (22.0-30.0) sec ABG pH (7.35-7.45) ABG pCO2 (35-45) mmHg ABG pO2 322 H (83-108) mmHg ABG HCO3 (21-25) mmol/L ABG Total CO2 (19-24) mmol/L ABG O2 Saturation >99.4 H (94-97) % ABG Hematocrit 23 L (34.0-46.0) % ABG Glucose 118 H (75-99) mg/dL ABG Lactic Acid 1.9 H (0.5-1.6) mmol/L Hemoglobin 7.4 L (11.4-16.0) gm/dL Sodium (137-145) mmol/L Chloride (98-107) mmol/L Carbon Dioxide (22-30) mmol/L Glucose (74-99) mg/dL POC Glucose (mg/dL) (70-110) mg/dL Magnesium (1.6-2.3) mg/dL AST (14-36) U/L Total Protein (6.3-8.2) g/dL Albumin (3.5-5.0) g/dL Arterial Blood Glucose 118 H (75-99) mg/dL Crossmatch 12/31/23 12/31/23 12/31/23 Range/Units 13:20 13:23 13:55 WBC (3.8-10.6) k/uL RBC (3.80-5.40) m/uL Hgb (11.4-16.0) gm/dL Hct (34.0-46.0) % Plt Count (150-450) k/uL Neutrophils # (1.3-7.7) k/uL Lymphocytes # (1.0-4.8) k/uL PT (10.0-12.5) sec INR (<1.2) APTT (22.0-30.0) sec ABG pH (7.35-7.45) ABG pCO2 (35-45) mmHg ABG pO2 (83-108) mmHg ABG HCO3 (21-25) mmol/L ABG Total CO2 (19-24) mmol/L ABG O2 Saturation (94-97) % ABG Hematocrit (34.0-46.0) % ABG Glucose (75-99) mg/dL ABG Lactic Acid (0.5-1.6) mmol/L Hemoglobin (11.4-16.0) gm/dL Sodium 136 L (137-145) mmol/L Chloride 108 H (98-107) mmol/L Carbon Dioxide (22-30) mmol/L Glucose 116 H (74-99) mg/dL POC Glucose (mg/dL) 117 H 129 H (70-110) mg/dL Magnesium 1.0 L (1.6-2.3) mg/dL AST (14-36) U/L Total Protein 5.1 L (6.3-8.2) g/dL Albumin 2.6 L (3.5-5.0) g/dL Arterial Blood Glucose (75-99) mg/dL Crossmatch 12/31/23 12/31/23 12/31/23 Range/Units 13:56 15:03 15:53 WBC (3.8-10.6) k/uL RBC 2.76 L (3.80-5.40) m/uL Hgb 7.6 L (11.4-16.0) gm/dL Hct 23.7 L (34.0-46.0) % Plt Count 73 L (150-450) k/uL Neutrophils # (1.3-7.7) k/uL Lymphocytes # 0.6 L (1.0-4.8) k/uL PT (10.0-12.5) sec INR (<1.2) APTT (22.0-30.0) sec ABG pH (7.35-7.45) ABG pCO2 46 H (35-45) mmHg ABG pO2 312 H (83-108) mmHg ABG HCO3 (21-25) mmol/L ABG Total CO2 27 H (19-24) mmol/L ABG O2 Saturation 100.6 H (94-97) % ABG Hematocrit (34.0-46.0) % ABG Glucose (75-99) mg/dL ABG Lactic Acid (0.5-1.6) mmol/L Hemoglobin (11.4-16.0) gm/dL Sodium (137-145) mmol/L Chloride (98-107) mmol/L Carbon Dioxide (22-30) mmol/L Glucose (74-99) mg/dL POC Glucose (mg/dL) 186 H (70-110) mg/dL Magnesium (1.6-2.3) mg/dL AST (14-36) U/L Total Protein (6.3-8.2) g/dL Albumin (3.5-5.0) g/dL Arterial Blood Glucose (75-99) mg/dL Crossmatch 12/31/23 12/31/23 12/31/23 Range/Units 15:59 17:09 18:04 WBC (3.8-10.6) k/uL RBC (3.80-5.40) m/uL Hgb (11.4-16.0) gm/dL Hct (34.0-46.0) % Plt Count (150-450) k/uL Neutrophils # (1.3-7.7) k/uL Lymphocytes # (1.0-4.8) k/uL PT (10.0-12.5) sec INR (<1.2) APTT (22.0-30.0) sec ABG pH (7.35-7.45) ABG pCO2 (35-45) mmHg ABG pO2 (83-108) mmHg ABG HCO3 (21-25) mmol/L ABG Total CO2 (19-24) mmol/L ABG O2 Saturation (94-97) % ABG Hematocrit (34.0-46.0) % ABG Glucose (75-99) mg/dL ABG Lactic Acid (0.5-1.6) mmol/L Hemoglobin (11.4-16.0) gm/dL Sodium (137-145) mmol/L Chloride (98-107) mmol/L Carbon Dioxide (22-30) mmol/L Glucose (74-99) mg/dL POC Glucose (mg/dL) 209 H 212 H 206 H (70-110) mg/dL Magnesium (1.6-2.3) mg/dL AST (14-36) U/L Total Protein (6.3-8.2) g/dL Albumin (3.5-5.0) g/dL Arterial Blood Glucose (75-99) mg/dL Crossmatch 12/31/23 12/31/23 12/31/23 Range/Units 18:05 18:34 18:52 WBC (3.8-10.6) k/uL RBC 3.04 L (3.80-5.40) m/uL Hgb 8.4 L (11.4-16.0) gm/dL Hct 26.4 L (34.0-46.0) % Plt Count 82 L (150-450) k/uL Neutrophils # (1.3-7.7) k/uL Lymphocytes # 0.6 L (1.0-4.8) k/uL PT (10.0-12.5) sec INR (<1.2) APTT (22.0-30.0) sec ABG pH (7.35-7.45) ABG pCO2 (35-45) mmHg ABG pO2 139 H (83-108) mmHg ABG HCO3 (21-25) mmol/L ABG Total CO2 25 H (19-24) mmol/L ABG O2 Saturation 99.8 H (94-97) % ABG Hematocrit (34.0-46.0) % ABG Glucose (75-99) mg/dL ABG Lactic Acid (0.5-1.6) mmol/L Hemoglobin (11.4-16.0) gm/dL Sodium (137-145) mmol/L Chloride (98-107) mmol/L Carbon Dioxide (22-30) mmol/L Glucose (74-99) mg/dL POC Glucose (mg/dL) 193 H (70-110) mg/dL Magnesium (1.6-2.3) mg/dL AST (14-36) U/L Total Protein (6.3-8.2) g/dL Albumin (3.5-5.0) g/dL Arterial Blood Glucose (75-99) mg/dL Crossmatch 12/31/23 12/31/23 12/31/23 Range/Units 19:57 21:59 23:01 WBC (3.8-10.6) k/uL RBC (3.80-5.40) m/uL Hgb (11.4-16.0) gm/dL Hct (34.0-46.0) % Plt Count (150-450) k/uL Neutrophils # (1.3-7.7) k/uL Lymphocytes # (1.0-4.8) k/uL PT (10.0-12.5) sec INR (<1.2) APTT (22.0-30.0) sec ABG pH (7.35-7.45) ABG pCO2 (35-45) mmHg ABG pO2 (83-108) mmHg ABG HCO3 (21-25) mmol/L ABG Total CO2 (19-24) mmol/L ABG O2 Saturation (94-97) % ABG Hematocrit (34.0-46.0) % ABG Glucose (75-99) mg/dL ABG Lactic Acid (0.5-1.6) mmol/L Hemoglobin (11.4-16.0) gm/dL Sodium (137-145) mmol/L Chloride (98-107) mmol/L Carbon Dioxide (22-30) mmol/L Glucose (74-99) mg/dL POC Glucose (mg/dL) 143 H 119 H 146 H (70-110) mg/dL Magnesium (1.6-2.3) mg/dL AST (14-36) U/L Total Protein (6.3-8.2) g/dL Albumin (3.5-5.0) g/dL Arterial Blood Glucose (75-99) mg/dL Crossmatch 12/31/23 01/01/24 01/01/24 Range/Units 23:46 01:01 01:59 WBC (3.8-10.6) k/uL RBC (3.80-5.40) m/uL Hgb (11.4-16.0) gm/dL Hct (34.0-46.0) % Plt Count (150-450) k/uL Neutrophils # (1.3-7.7) k/uL Lymphocytes # (1.0-4.8) k/uL PT (10.0-12.5) sec INR (<1.2) APTT (22.0-30.0) sec ABG pH (7.35-7.45) ABG pCO2 (35-45) mmHg ABG pO2 (83-108) mmHg ABG HCO3 (21-25) mmol/L ABG Total CO2 (19-24) mmol/L ABG O2 Saturation (94-97) % ABG Hematocrit (34.0-46.0) % ABG Glucose (75-99) mg/dL ABG Lactic Acid (0.5-1.6) mmol/L Hemoglobin (11.4-16.0) gm/dL Sodium (137-145) mmol/L Chloride (98-107) mmol/L Carbon Dioxide (22-30) mmol/L Glucose (74-99) mg/dL POC Glucose (mg/dL) 155 H 125 H 113 H (70-110) mg/dL Magnesium (1.6-2.3) mg/dL AST (14-36) U/L Total Protein (6.3-8.2) g/dL Albumin (3.5-5.0) g/dL Arterial Blood Glucose (75-99) mg/dL Crossmatch 01/01/24 01/01/24 01/01/24 Range/Units 02:53 04:00 04:00 WBC 13.8 H (3.8-10.6) k/uL RBC 3.24 L (3.80-5.40) m/uL Hgb 9.0 L (11.4-16.0) gm/dL Hct 27.5 L (34.0-46.0) % Plt Count 122 L (150-450) k/uL Neutrophils # 11.2 H (1.3-7.7) k/uL Lymphocytes # (1.0-4.8) k/uL PT (10.0-12.5) sec INR (<1.2) APTT (22.0-30.0) sec ABG pH (7.35-7.45) ABG pCO2 (35-45) mmHg ABG pO2 (83-108) mmHg ABG HCO3 (21-25) mmol/L ABG Total CO2 (19-24) mmol/L ABG O2 Saturation (94-97) % ABG Hematocrit (34.0-46.0) % ABG Glucose (75-99) mg/dL ABG Lactic Acid (0.5-1.6) mmol/L Hemoglobin (11.4-16.0) gm/dL Sodium 132 L (137-145) mmol/L Chloride (98-107) mmol/L Carbon Dioxide 20 L (22-30) mmol/L Glucose 120 H (74-99) mg/dL POC Glucose (mg/dL) 123 H (70-110) mg/dL Magnesium (1.6-2.3) mg/dL AST 37 H (14-36) U/L Total Protein 5.4 L (6.3-8.2) g/dL Albumin 2.9 L (3.5-5.0) g/dL Arterial Blood Glucose (75-99) mg/dL Crossmatch 01/01/24 01/01/24 01/01/24 Range/Units 04:03 05:08 06:05 WBC (3.8-10.6) k/uL RBC (3.80-5.40) m/uL Hgb (11.4-16.0) gm/dL Hct (34.0-46.0) % Plt Count (150-450) k/uL Neutrophils # (1.3-7.7) k/uL Lymphocytes # (1.0-4.8) k/uL PT (10.0-12.5) sec INR (<1.2) APTT (22.0-30.0) sec ABG pH (7.35-7.45) ABG pCO2 (35-45) mmHg ABG pO2 (83-108) mmHg ABG HCO3 (21-25) mmol/L ABG Total CO2 (19-24) mmol/L ABG O2 Saturation (94-97) % ABG Hematocrit (34.0-46.0) % ABG Glucose (75-99) mg/dL ABG Lactic Acid (0.5-1.6) mmol/L Hemoglobin (11.4-16.0) gm/dL Sodium (137-145) mmol/L Chloride (98-107) mmol/L Carbon Dioxide (22-30) mmol/L Glucose (74-99) mg/dL POC Glucose (mg/dL) 128 H 119 H 146 H (70-110) mg/dL Magnesium (1.6-2.3) mg/dL AST (14-36) U/L Total Protein (6.3-8.2) g/dL Albumin (3.5-5.0) g/dL Arterial Blood Glucose (75-99) mg/dL Crossmatch 01/01/24 01/01/24 01/01/24 Range/Units 07:01 08:13 09:57 WBC (3.8-10.6) k/uL RBC (3.80-5.40) m/uL Hgb (11.4-16.0) gm/dL Hct (34.0-46.0) % Plt Count (150-450) k/uL Neutrophils # (1.3-7.7) k/uL Lymphocytes # (1.0-4.8) k/uL PT (10.0-12.5) sec INR (<1.2) APTT (22.0-30.0) sec ABG pH (7.35-7.45) ABG pCO2 (35-45) mmHg ABG pO2 (83-108) mmHg ABG HCO3 (21-25) mmol/L ABG Total CO2 (19-24) mmol/L ABG O2 Saturation (94-97) % ABG Hematocrit (34.0-46.0) % ABG Glucose (75-99) mg/dL ABG Lactic Acid (0.5-1.6) mmol/L Hemoglobin (11.4-16.0) gm/dL Sodium (137-145) mmol/L Chloride (98-107) mmol/L Carbon Dioxide (22-30) mmol/L Glucose (74-99) mg/dL POC Glucose (mg/dL) 131 H 119 H 134 H (70-110) mg/dL Magnesium (1.6-2.3) mg/dL AST (14-36) U/L Total Protein (6.3-8.2) g/dL Albumin (3.5-5.0) g/dL Arterial Blood Glucose (75-99) mg/dL Crossmatch Assessment and Plan Assessment: Triple-vessel coronary artery disease status post off-pump coronary artery bypass grafting x 3. Left internal thoracic artery to the LAD, reverse saphenous vein graft to the obtuse marginal artery, reverse saphenous vein graft to the distal right coronary artery. Left atrial appendage ligation. Postoperative day #1 Postoperative mechanical ventilator management Acute on chronic anemia, expected outcome of surgery. Hemoglobin 9.0 Thrombocytopenia, expected outcome of surgery, current platelets 122,000 History of hypertension Diabetes mellitus Hyperlipidemia History of gastric esophageal reflux disease History of nonalcoholic liver disease Chronic tobacco dependence History of GI bleed Plan: The patient was seen and evaluated Chest x-ray, labs and medications reviewed Titrate the FiO2 as tolerated Encourage increased use of the incentive spirometer Continue bronchodilators Heparin for DVT prophylaxis We will continue to follow I have personally seen and examined the patient, performed the documentation and the assessment and plan as written. Number of minutes spent on the visit: 10.
[2024-01-01 11:54] LABS: Glucose,Whole Blood 187 mg/dL (70-110)
[2024-01-01] MEDS: FUROSEMIDE 10 MG/ML 2 ML VIAL IV STA (12:13)
[2024-01-01] MEDS: POTASSIUM CHLORIDE ER 10 MEQ TAB.ER.PRT PO STA (12:13)
--- NOTE | 2024-01-01 12:40 | P.PN ---
Subjective Progress Note Date: 01/01/24 Principal diagnosis: s/p cabg times 3 patient was complaining from some sternal chest pain at the incision site this morning. She was medicated with fentanyl IV twice as of this morning. Denies shortness of breath. Feeling generally weak. Objective - Vital Signs Vital signs: Vital Signs Temp 99.7 F H 01/01/24 08:00 Pulse 69 01/01/24 11:00 Resp 20 01/01/24 11:00 BP 120/54 01/01/24 11:00 Pulse Ox 97 01/01/24 11:00 FiO2 40 12/31/23 18:01 Intake & Output 12/31/23 01/01/24 01/01/24 18:59 06:59 18:59 Intake Total 6253.516 0607.131 411.356 Output Total 1235 770 140 Balance -52.089 462.131 271.356 Weight 81.9 kg Intake: IV 137 1009 369 0.9 @ 50 550 230 ACETAMINOPHEN IV (For NPO 100 ) 1,000 mg In Empty Bag 1 bag @ 400 mls/hr IVPB Q6HR [facility] Rx#:[id number] CO/CI 30 60 Magnesium Sulfate-D5w Pmx 100 1 gm In Dextrose/Water 1 100ml.bag @ 100 mls/hr IVPB Q1H [facility] Rx#: [id number] ceFAZolin 2 gm In Sodium 100 100 Chloride 0.9% 50 ml @ 100 mls/hr IVPB Q8HR [facility] Rx# :[id number] pressure bag 54 99 39 Intake, IV Titration 1045.911 133.131 42.356 Amount Albumin Human 5% 250 ml 250 In Empty Bag 1 bag @ 250 mls/hr IVPB Q1HR [facility]N Rx#: [id number] Clevidipine Butyrate 25 74.732 21.4 mg In Empty Bag 1 bag @ 1 MG/HR 2 mls/hr IV .Q24H [facility] Rx#:[id number] Dexmedetomidine/0.9% NaCl 8.265 (Pmx) 400 mcg In Empty Bag 1 bag @ Titrate IV . Q0M [facility] Rx#:[id number] Insulin Regular 100 unit 14.342 41.049 20.956 In Sodium Chloride 0.9% 100 ml @ Per Protocol IV .Q0M [facility] Rx#:[id number] Magnesium Sulfate-D5w Pmx 400 1 gm In Dextrose/Water 1 100ml.bag @ 100 mls/hr IVPB Q1H [facility] Rx#: [id number] Nitroglycerin-D5w Pmx 50 17.35 mg In Dextrose/Water 1 250ml.bag @ 5 MCG/MIN 1.5 mls/hr IV .Q24H [facility] Rx#: [id number] Sodium Chloride 0.9% 1, 300 000 ml @ 20 mls/hr IV . Q24H [facility] Rx#:[id number] propofoL 1,000 mg In 73.304 Empty Bag 1 bag @ Titrate IV .Q0M [facility] Rx#: [id number] Oral 90 Output: Chest Tube Drainage 30 L and R pleural 30 mediastinal 0 Drainage 150 330 10 Left Lower Calf 20 20 Mediastinal 100 190 10 R and L pleural 30 120 0 Urine 710 440 100 Estimated Blood Loss 375 Other: Voiding Method Indwelling Catheter Indwelling Catheter Indwelling Catheter ABP, PAP, CO, CI - Last Documented Arterial Blood Pressure 141/47 Pulmonary Artery Pressure 23/3 Cardiac Output 5.7 Cardiac Index 3.3 - Exam Constitutional: No acute distress, has right IJ [place]-Pedro catheter in place Eyes: Anicteric sclerae, moist conjunctiva, Pupils equal round reactive to light Lungs: Good breath sounds bilaterally, diffuse rhonchi Clear to percussion Normal respiratory effort, no accessory muscle use Cardiovascular: Heart regular in rate and rhythm, No murmurs, gallops, or rubs No peripheral edema Right and left and mediastinal chest tubes in place Abdominal: Soft Nontender, no guarding, rebound or rigidity Abdomen moving with respiration Normoactive bowel sounds Extremities: No digital cyanosis No clubbing Pedal pulses intact and symmetrical Radial pulses intact and symmetrical No calf tenderness Psychiatric: Alert and oriented to person, place Neuro patient moving all 4 extremities spontaneously - Labs CBC & Chem 7: 01/01/24 04:00 01/01/24 04:00 Labs: Abnormal Lab Results - Last 24 Hours (Table) 12/25/23 12/31/23 12/31/23 Range/Units 08:52 08:35 13:20 WBC (3.8-10.6) k/uL RBC 2.88 L (3.80-5.40) m/uL Hgb 8.0 L D (11.4-16.0) gm/dL Hct 24.5 L (34.0-46.0) % Plt Count 85 L (150-450) k/uL Neutrophils # (1.3-7.7) k/uL Lymphocytes # (1.0-4.8) k/uL PT (10.0-12.5) sec INR (<1.2) APTT (22.0-30.0) sec ABG pH 7.47 H (7.35-7.45) ABG pCO2 (35-45) mmHg ABG pO2 301 H (83-108) mmHg ABG HCO3 26 H (21-25) mmol/L ABG Total CO2 (19-24) mmol/L ABG O2 Saturation >99.4 H (94-97) % ABG Hematocrit 19 L* (34.0-46.0) % ABG Glucose 134 H (75-99) mg/dL Hemoglobin 6.3 L* (11.4-16.0) gm/dL Sodium (137-145) mmol/L Chloride (98-107) mmol/L Carbon Dioxide (22-30) mmol/L Glucose (74-99) mg/dL POC Glucose (mg/dL) (70-110) mg/dL Magnesium (1.6-2.3) mg/dL AST (14-36) U/L Total Protein (6.3-8.2) g/dL Albumin (3.5-5.0) g/dL Arterial Blood Glucose 134 H (75-99) mg/dL Crossmatch See Detail 12/31/23 12/31/23 12/31/23 Range/Units 13:20 13:20 13:23 WBC (3.8-10.6) k/uL RBC (3.80-5.40) m/uL Hgb (11.4-16.0) gm/dL Hct (34.0-46.0) % Plt Count (150-450) k/uL Neutrophils # (1.3-7.7) k/uL Lymphocytes # (1.0-4.8) k/uL PT 15.0 H (10.0-12.5) sec INR 1.5 H (<1.2) APTT 31.7 H (22.0-30.0) sec ABG pH (7.35-7.45) ABG pCO2 (35-45) mmHg ABG pO2 (83-108) mmHg ABG HCO3 (21-25) mmol/L ABG Total CO2 (19-24) mmol/L ABG O2 Saturation (94-97) % ABG Hematocrit (34.0-46.0) % ABG Glucose (75-99) mg/dL Hemoglobin (11.4-16.0) gm/dL Sodium 136 L (137-145) mmol/L Chloride 108 H (98-107) mmol/L Carbon Dioxide (22-30) mmol/L Glucose 116 H (74-99) mg/dL POC Glucose (mg/dL) 117 H (70-110) mg/dL Magnesium 1.0 L (1.6-2.3) mg/dL AST (14-36) U/L Total Protein 5.1 L (6.3-8.2) g/dL Albumin 2.6 L (3.5-5.0) g/dL Arterial Blood Glucose (75-99) mg/dL Crossmatch 12/31/23 12/31/23 12/31/23 Range/Units 13:55 13:56 15:03 WBC (3.8-10.6) k/uL RBC (3.80-5.40) m/uL Hgb (11.4-16.0) gm/dL Hct (34.0-46.0) % Plt Count (150-450) k/uL Neutrophils # (1.3-7.7) k/uL Lymphocytes # (1.0-4.8) k/uL PT (10.0-12.5) sec INR (<1.2) APTT (22.0-30.0) sec ABG pH (7.35-7.45) ABG pCO2 46 H (35-45) mmHg ABG pO2 312 H (83-108) mmHg ABG HCO3 (21-25) mmol/L ABG Total CO2 27 H (19-24) mmol/L ABG O2 Saturation 100.6 H (94-97) % ABG Hematocrit (34.0-46.0) % ABG Glucose (75-99) mg/dL Hemoglobin (11.4-16.0) gm/dL Sodium (137-145) mmol/L Chloride (98-107) mmol/L Carbon Dioxide (22-30) mmol/L Glucose (74-99) mg/dL POC Glucose (mg/dL) 129 H 186 H (70-110) mg/dL Magnesium (1.6-2.3) mg/dL AST (14-36) U/L Total Protein (6.3-8.2) g/dL Albumin (3.5-5.0) g/dL Arterial Blood Glucose (75-99) mg/dL Crossmatch 12/31/23 12/31/23 12/31/23 Range/Units 15:53 15:59 17:09 WBC (3.8-10.6) k/uL RBC 2.76 L (3.80-5.40) m/uL Hgb 7.6 L (11.4-16.0) gm/dL Hct 23.7 L (34.0-46.0) % Plt Count 73 L (150-450) k/uL Neutrophils # (1.3-7.7) k/uL Lymphocytes # 0.6 L (1.0-4.8) k/uL PT (10.0-12.5) sec INR (<1.2) APTT (22.0-30.0) sec ABG pH (7.35-7.45) ABG pCO2 (35-45) mmHg ABG pO2 (83-108) mmHg ABG HCO3 (21-25) mmol/L ABG Total CO2 (19-24) mmol/L ABG O2 Saturation (94-97) % ABG Hematocrit (34.0-46.0) % ABG Glucose (75-99) mg/dL Hemoglobin (11.4-16.0) gm/dL Sodium (137-145) mmol/L Chloride (98-107) mmol/L Carbon Dioxide (22-30) mmol/L Glucose (74-99) mg/dL POC Glucose (mg/dL) 209 H 212 H (70-110) mg/dL Magnesium (1.6-2.3) mg/dL AST (14-36) U/L Total Protein (6.3-8.2) g/dL Albumin (3.5-5.0) g/dL Arterial Blood Glucose (75-99) mg/dL Crossmatch 12/31/23 12/31/23 12/31/23 Range/Units 18:04 18:05 18:34 WBC (3.8-10.6) k/uL RBC 3.04 L (3.80-5.40) m/uL Hgb 8.4 L (11.4-16.0) gm/dL Hct 26.4 L (34.0-46.0) % Plt Count 82 L (150-450) k/uL Neutrophils # (1.3-7.7) k/uL Lymphocytes # 0.6 L (1.0-4.8) k/uL PT (10.0-12.5) sec INR (<1.2) APTT (22.0-30.0) sec ABG pH (7.35-7.45) ABG pCO2 (35-45) mmHg ABG pO2 139 H (83-108) mmHg ABG HCO3 (21-25) mmol/L ABG Total CO2 25 H (19-24) mmol/L ABG O2 Saturation 99.8 H (94-97) % ABG Hematocrit (34.0-46.0) % ABG Glucose (75-99) mg/dL Hemoglobin (11.4-16.0) gm/dL Sodium (137-145) mmol/L Chloride (98-107) mmol/L Carbon Dioxide (22-30) mmol/L Glucose (74-99) mg/dL POC Glucose (mg/dL) 206 H (70-110) mg/dL Magnesium (1.6-2.3) mg/dL AST (14-36) U/L Total Protein (6.3-8.2) g/dL Albumin (3.5-5.0) g/dL Arterial Blood Glucose (75-99) mg/dL Crossmatch 12/31/23 12/31/23 12/31/23 Range/Units 18:52 19:57 21:59 WBC (3.8-10.6) k/uL RBC (3.80-5.40) m/uL Hgb (11.4-16.0) gm/dL Hct (34.0-46.0) % Plt Count (150-450) k/uL Neutrophils # (1.3-7.7) k/uL Lymphocytes # (1.0-4.8) k/uL PT (10.0-12.5) sec INR (<1.2) APTT (22.0-30.0) sec ABG pH (7.35-7.45) ABG pCO2 (35-45) mmHg ABG pO2 (83-108) mmHg ABG HCO3 (21-25) mmol/L ABG Total CO2 (19-24) mmol/L ABG O2 Saturation (94-97) % ABG Hematocrit (34.0-46.0) % ABG Glucose (75-99) mg/dL Hemoglobin (11.4-16.0) gm/dL Sodium (137-145) mmol/L Chloride (98-107) mmol/L Carbon Dioxide (22-30) mmol/L Glucose (74-99) mg/dL POC Glucose (mg/dL) 193 H 143 H 119 H (70-110) mg/dL Magnesium (1.6-2.3) mg/dL AST (14-36) U/L Total Protein (6.3-8.2) g/dL Albumin (3.5-5.0) g/dL Arterial Blood Glucose (75-99) mg/dL Crossmatch 12/31/23 12/31/23 01/01/24 Range/Units 23:01 23:46 01:01 WBC (3.8-10.6) k/uL RBC (3.80-5.40) m/uL Hgb (11.4-16.0) gm/dL Hct (34.0-46.0) % Plt Count (150-450) k/uL Neutrophils # (1.3-7.7) k/uL Lymphocytes # (1.0-4.8) k/uL PT (10.0-12.5) sec INR (<1.2) APTT (22.0-30.0) sec ABG pH (7.35-7.45) ABG pCO2 (35-45) mmHg ABG pO2 (83-108) mmHg ABG HCO3 (21-25) mmol/L ABG Total CO2 (19-24) mmol/L ABG O2 Saturation (94-97) % ABG Hematocrit (34.0-46.0) % ABG Glucose (75-99) mg/dL Hemoglobin (11.4-16.0) gm/dL Sodium (137-145) mmol/L Chloride (98-107) mmol/L Carbon Dioxide (22-30) mmol/L Glucose (74-99) mg/dL POC Glucose (mg/dL) 146 H 155 H 125 H (70-110) mg/dL Magnesium (1.6-2.3) mg/dL AST (14-36) U/L Total Protein (6.3-8.2) g/dL Albumin (3.5-5.0) g/dL Arterial Blood Glucose (75-99) mg/dL Crossmatch 01/01/24 01/01/24 01/01/24 Range/Units 01:59 02:53 04:00 WBC 13.8 H (3.8-10.6) k/uL RBC 3.24 L (3.80-5.40) m/uL Hgb 9.0 L (11.4-16.0) gm/dL Hct 27.5 L (34.0-46.0) % Plt Count 122 L (150-450) k/uL Neutrophils # 11.2 H (1.3-7.7) k/uL Lymphocytes # (1.0-4.8) k/uL PT (10.0-12.5) sec INR (<1.2) APTT (22.0-30.0) sec ABG pH (7.35-7.45) ABG pCO2 (35-45) mmHg ABG pO2 (83-108) mmHg ABG HCO3 (21-25) mmol/L ABG Total CO2 (19-24) mmol/L ABG O2 Saturation (94-97) % ABG Hematocrit (34.0-46.0) % ABG Glucose (75-99) mg/dL Hemoglobin (11.4-16.0) gm/dL Sodium (137-145) mmol/L Chloride (98-107) mmol/L Carbon Dioxide (22-30) mmol/L Glucose (74-99) mg/dL POC Glucose (mg/dL) 113 H 123 H (70-110) mg/dL Magnesium (1.6-2.3) mg/dL AST (14-36) U/L Total Protein (6.3-8.2) g/dL Albumin (3.5-5.0) g/dL Arterial Blood Glucose (75-99) mg/dL Crossmatch 01/01/24 01/01/24 01/01/24 Range/Units 04:00 04:03 05:08 WBC (3.8-10.6) k/uL RBC (3.80-5.40) m/uL Hgb (11.4-16.0) gm/dL Hct (34.0-46.0) % Plt Count (150-450) k/uL Neutrophils # (1.3-7.7) k/uL Lymphocytes # (1.0-4.8) k/uL PT (10.0-12.5) sec INR (<1.2) APTT (22.0-30.0) sec ABG pH (7.35-7.45) ABG pCO2 (35-45) mmHg ABG pO2 (83-108) mmHg ABG HCO3 (21-25) mmol/L ABG Total CO2 (19-24) mmol/L ABG O2 Saturation (94-97) % ABG Hematocrit (34.0-46.0) % ABG Glucose (75-99) mg/dL Hemoglobin (11.4-16.0) gm/dL Sodium 132 L (137-145) mmol/L Chloride (98-107) mmol/L Carbon Dioxide 20 L (22-30) mmol/L Glucose 120 H (74-99) mg/dL POC Glucose (mg/dL) 128 H 119 H (70-110) mg/dL Magnesium (1.6-2.3) mg/dL AST 37 H (14-36) U/L Total Protein 5.4 L (6.3-8.2) g/dL Albumin 2.9 L (3.5-5.0) g/dL Arterial Blood Glucose (75-99) mg/dL Crossmatch 01/01/24 01/01/24 01/01/24 Range/Units 06:05 07:01 08:13 WBC (3.8-10.6) k/uL RBC (3.80-5.40) m/uL Hgb (11.4-16.0) gm/dL Hct (34.0-46.0) % Plt Count (150-450) k/uL Neutrophils # (1.3-7.7) k/uL Lymphocytes # (1.0-4.8) k/uL PT (10.0-12.5) sec INR (<1.2) APTT (22.0-30.0) sec ABG pH (7.35-7.45) ABG pCO2 (35-45) mmHg ABG pO2 (83-108) mmHg ABG HCO3 (21-25) mmol/L ABG Total CO2 (19-24) mmol/L ABG O2 Saturation (94-97) % ABG Hematocrit (34.0-46.0) % ABG Glucose (75-99) mg/dL Hemoglobin (11.4-16.0) gm/dL Sodium (137-145) mmol/L Chloride (98-107) mmol/L Carbon Dioxide (22-30) mmol/L Glucose (74-99) mg/dL POC Glucose (mg/dL) 146 H 131 H 119 H (70-110) mg/dL Magnesium (1.6-2.3) mg/dL AST (14-36) U/L Total Protein (6.3-8.2) g/dL Albumin (3.5-5.0) g/dL Arterial Blood Glucose (75-99) mg/dL Crossmatch 01/01/24 01/01/24 Range/Units 09:57 11:53 WBC (3.8-10.6) k/uL RBC (3.80-5.40) m/uL Hgb (11.4-16.0) gm/dL Hct (34.0-46.0) % Plt Count (150-450) k/uL Neutrophils # (1.3-7.7) k/uL Lymphocytes # (1.0-4.8) k/uL PT (10.0-12.5) sec INR (<1.2) APTT (22.0-30.0) sec ABG pH (7.35-7.45) ABG pCO2 (35-45) mmHg ABG pO2 (83-108) mmHg ABG HCO3 (21-25) mmol/L ABG Total CO2 (19-24) mmol/L ABG O2 Saturation (94-97) % ABG Hematocrit (34.0-46.0) % ABG Glucose (75-99) mg/dL Hemoglobin (11.4-16.0) gm/dL Sodium (137-145) mmol/L Chloride (98-107) mmol/L Carbon Dioxide (22-30) mmol/L Glucose (74-99) mg/dL POC Glucose (mg/dL) 134 H 187 H (70-110) mg/dL Magnesium (1.6-2.3) mg/dL AST (14-36) U/L Total Protein (6.3-8.2) g/dL Albumin (3.5-5.0) g/dL Arterial Blood Glucose (75-99) mg/dL Crossmatch Assessment and Plan Plan: Diabetes mellitus Type II Patient currently on insulin drip per protocol. blood sugars controlled at 120- 150 range. At home she is taking total of 79 units of Lantus nightly and 60 units in the morning. Restart long-acting insulin at a modified dose depending on oral intake as well as Insulin sliding scale once insulin drip is off. A1c 9 Triple-vessel coronary artery disease status post bypass grafting x 3 po stoperative day 1 Management per primary cardiothoracic surgery team Continue with aspirin Continue Plavix Continue with atorvastatin Chest tube care On IV antibiotics with cefazolin 2 g IV piggyback every 8 hours Pain control with opiates Patient was noted to be with my cardiology 12/31, she was given 1 dose of IV Lasix. Bicytopenia Thrombocytopenia with platelet count of 82 continue to monitor closely no active bleeding Acute on chronic anemia precipitated by cardiac surgery Platelet count improved today. Hemoglobin 8.4 continue to monitor Transfuse for hemoglobin less than 7 White count 6.5 unremarkable Hypertension Continue with Coreg 25 mg twice daily History of nonalcoholic steatohepatitis GERD Stable Protonix 40 mg p.o. daily Renal function unremarkable sodium 136 potassium 4.1 BUN 9 creatinine 0.5 Hypomagnesemia Replace per ICU protocol follow-up levels of magnesium Magnesium level 1 Full code DVT prophylaxis on heparin 5000 units subcu 3 times a day Thank you for this consultation we will continue to follow-up
[2024-01-01 13:08] LABS: Glucose,Whole Blood 136 mg/dL (70-110)
[2024-01-01 14:03] LABS: Glucose,Whole Blood 104 mg/dL (70-110)
[2024-01-01 15:02] LABS: Glucose,Whole Blood 100 mg/dL (70-110)
[2024-01-01 16:07] LABS: Glucose,Whole Blood 178 mg/dL (70-110)
[2024-01-01 17:11] LABS: Glucose,Whole Blood 166 mg/dL (70-110)
[2024-01-01 18:26] LABS: Glucose,Whole Blood 156 mg/dL (70-110)
[2024-01-01] MEDS: KETOROLAC 15 MG/ML 1 ML VIAL IVP SCH (18:47)
[2024-01-01 20:28] LABS: Glucose,Whole Blood 116 mg/dL (70-110)
[2024-01-01 22:10] LABS: Glucose,Whole Blood 138 mg/dL (70-110)
[2024-01-01 23:05] LABS: Glucose,Whole Blood 130 mg/dL (70-110)
[2024-01-02 00:17] LABS: Glucose,Whole Blood 116 mg/dL (70-110)
[2024-01-02 01:13] LABS: Glucose,Whole Blood 107 mg/dL (70-110)
[2024-01-02 02:18] LABS: Glucose,Whole Blood 125 mg/dL (70-110)
[2024-01-02 03:15] LABS: Glucose,Whole Blood 123 mg/dL (70-110)
[2024-01-02 03:42] LABS: Basophils % (A) 0 %; Eosinophils % (A) 0 %; HCT 24.7 % (34.0-46.0); HGB 7.8 gm/dL (11.4-16.0); Hypochromasia Moderate; Lymphocytes # (A) 1.5 k/uL (1.0-4.8); Lymphocytes % (A) 15 %; MCH 27.2 pg (25.0-35.0); MCHC 31.7 g/dL (31.0-37.0); MCV 85.7 fL (80.0-100.0); Mean Platelet Volume 10.6; Monocytes # (A) 0.7 k/uL (0-1.0); Monocytes % (A) 7 %; Neutrophils # (A) 7.7 k/uL (1.3-7.7); Neutrophils % (A) 76 %; RBC 2.88 m/uL (3.80-5.40); RDW 15.7 % (11.5-15.5); WBC 10.2 k/uL (3.8-10.6)
[2024-01-02 03:45] LABS: Ionized Calcium 4.8 mg/dL (4.5-5.3)
[2024-01-02 03:48] LABS: Platelet Count 84 k/uL (150-450)
[2024-01-02 04:08] LABS: ALT 11 U/L (4-34); AST 57 U/L (14-36); African American GFR (CKD) 78 (>60 ml/min/1.73 sqM); Albumin 2.3 g/dL (3.5-5.0); Alkaline Phosphatase 64 U/L (38-126); Anion Gap 2 mmol/L; Blood Urea Nitrogen 19 mg/dL (7-17); Calcium 8.2 mg/dL (8.4-10.2); Carbon Dioxide 20 mmol/L (22-30); Chloride 108 mmol/L (98-107); Glucose 117 mg/dL (74-99); Magnesium 1.8 mg/dL (1.6-2.3); Non-African American GFR(CKD) 68 (>60 ml/min/1.73 sqM); Potassium 4.3 mmol/L (3.5-5.1); Sodium 130 mmol/L (137-145); Total Bilirubin 1.4 mg/dL (0.2-1.3); Total Protein 4.8 g/dL (6.3-8.2)
[2024-01-02 04:10] LABS: Glucose,Whole Blood 126 mg/dL (70-110)
[2024-01-02 05:21] LABS: Glucose,Whole Blood 118 mg/dL (70-110)
--- NOTE | 2024-01-02 06:44 | XR ---
EXAMINATION TYPE: XR chest 1V portable DATE OF EXAM: 01/02/2024 COMPARISON: 01/01/2024 HISTORY: Postop cardiac surgery TECHNIQUE: Single frontal view of the chest is obtained. FINDINGS: There is a right jugular central venous catheter the tip of which is in the SVC. There is been interv al removal of the [place]-Pedro catheter. There is no change in the bilateral chest tubes. There is a spinal stimulator projecting over the mid thoracic spine. There are median sternotomy wires. There has been no significant interval change in the pulmonary vascular congestion and small bilatera l effusions given the difference in the portable technique. IMPRESSION: Acute cardiopulmonary disease unchanged compared to previous as described above. IMPRESSION: No acute process.
[2024-01-02] MEDS: PANTOPRAZOLE 40 MG TABLET PO SCH (06:56)
[2024-01-02] MEDS: MAGNESIUM SULFATE-D5W PMX 1 GM in DEXTROSE/WATER 1 100ML.BAG IVPB ONE (06:57)
[2024-01-02 07:04] LABS: Glucose,Whole Blood 130 mg/dL (70-110)
--- NOTE | 2024-01-02 09:07 | P.PN ---
Subjective Progress Note Date: 01/02/24 This is a 78-year-old female patient who was diagnosed recently with severe symptomatic triple-vessel coronary artery disease with anatomy favoring surgical revascularization. She was admitted to the hospital yesterday and she underwent CABG x 3 with GARCIA to LAD and SVG to first obtuse marginal branch and SVG to RCA. This is postoperation day #1. Currently the patient is extubated. She seems to be stable from the cardiac standpoint of view and not requiring any vasopressors at this point. As [id number] she is hypertensive and currently she is on Cleviprex which is in process of being weaned. Hemoglobin is stable. Electrolytes are within normal limits. Kidney function is stable. Beside that the chest x-ray was reviewed and seems to be somewhat wet. Her urine output has been marginal. I am going to give the patient 20 mg of Lasix IV once. Will continue monitor the kidney function and electrolytes and continue monitor the hemoglobin and chest x-ray as well as well as a urine output. Beside that she is on dual antiplatelet therapy along with intermediate intensity statin. We will consider increasing the statin intensity to hide down the line. The examination is remarkable for stable vital signs with somewhat elevated blood pressure as well as regular rate and rhythm with a distant heart sounds and diminished breathing sounds bilaterally no edema was noted in the lower extremities January 02, 2024 The patient was seen and evaluated this morning. He has been maintaining normal sinus mechanism and she remains hemodynamically stable but urine output has been marginal and I reviewed the chest x-ray which showed small bilateral pleural effusion versus atelectasis. With that being said I am going to get the patient 20 mg of Lasix IV and follow-up with her. Meanwhile continue the current medical regimen. Examination is remarkable for regular rhythm with distant hea rt sounds and diminished breathing sounds bilaterally and no edema was noted Assessment Severe triple-vessel CAD as described above Status post CABG as described above Multiple comorbid conditions including hypertension and dyslipidemia and smoking and diabetes Plan Continue the current medical regimen Consider increasing the dose of statin Continue adjusting the blood pressure medication to get the pressure under control Give the patient 20 mg of Lasix IV once Follow-up with the patient Objective - Vital Signs Vital signs: Vital Signs Temp 99.8 F H 01/02/24 04:00 Pulse 69 01/02/24 07:00 Resp 22 01/02/24 07:00 BP 111/45 01/02/24 07:00 Pulse Ox 93 L 01/02/24 07:00 FiO2 40 12/31/23 18:01 Intake & Output 01/01/24 01/02/24 01/02/24 18:59 06:59 18:59 Intake Total 798.764 533.110 49.501 Output Total 455 475 87 Balance 343.764 58.110 -37.499 Weight 81.9 kg 81.1 kg Intake: IV 737 506 46 0.9 @ 50 550 440 40 ceFAZolin 2 gm In Sodium 100 Chloride 0.9% 50 ml @ 100 mls/hr IVPB Q8HR [facility] Rx# :[id number] pressure bag 87 66 6 Intake, IV Titration 61.764 27.110 3.501 Amount Clevidipine Butyrate 25 21.4 mg In Empty Bag 1 bag @ 1 MG/HR 2 mls/hr IV .Q24H [facility] Rx#:[id number] Insulin Regular 100 unit 40.364 27.110 3.501 In Sodium Chloride 0.9% 100 ml @ Per Protocol IV .Q0M [facility] Rx#:[id number] Output: Chest Tube Drainage 210 180 70 L and R pleural 210 130 40 mediastinal 0 50 30 Drainage 10 Mediastinal 10 R and L pleural 0 Urine 235 295 17 Other: Voiding Method Indwelling Catheter Indwelling Catheter ABP, PAP, CO, CI - Last Documented Arterial Blood Pressure 95/33 Pulmonary Artery Pressure 23/3 Cardiac Output 5.7 Cardiac Index 3.3 - Labs CBC & Chem 7: 01/02/24 03:29 01/02/24 03:29 Labs: Abnormal Lab Results - Last 24 Hours (Table) 01/01/24 01/01/24 01/01/24 Range/Units 09:57 11:53 13:06 RBC (3.80-5.40) m/uL Hgb (11.4-16.0) gm/dL Hct (34.0-46.0) % RDW (11.5-15.5) % Plt Count (150-450) k/uL Sodium (137-145) mmol/L Chloride (98-107) mmol/L Carbon Dioxide (22-30) mmol/L BUN (7-17) mg/dL Glucose (74-99) mg/dL POC Glucose (mg/dL) 134 H 187 H 136 H (70-110) mg/dL Calcium (8.4-10.2) mg/dL Total Bilirubin (0.2-1.3) mg/dL AST (14-36) U/L Total Protein (6.3-8.2) g/dL Albumin (3.5-5.0) g/dL 01/01/24 01/01/24 01/01/24 Range/Units 16:04 17:09 18:23 RBC (3.80-5.40) m/uL Hgb (11.4-16.0) gm/dL Hct (34.0-46.0) % RDW (11.5-15.5) % Plt Count (150-450) k/uL Sodium (137-145) mmol/L Chloride (98-107) mmol/L Carbon Dioxide (22-30) mmol/L BUN (7-17) mg/dL Glucose (74-99) mg/dL POC Glucose (mg/dL) 178 H 166 H 156 H (70-110) mg/dL Calcium (8.4-10.2) mg/dL Total Bilirubin (0.2-1.3) mg/dL AST (14-36) U/L Total Protein (6.3-8.2) g/dL Albumin (3.5-5.0) g/dL 01/01/24 01/01/24 01/01/24 Range/Units 20:21 22:07 23:04 RBC (3.80-5.40) m/uL Hgb (11.4-16.0) gm/dL Hct (34.0-46.0) % RDW (11.5-15.5) % Plt Count (150-450) k/uL Sodium (137-145) mmol/L Chloride (98-107) mmol/L Carbon Dioxide (22-30) mmol/L BUN (7-17) mg/dL Glucose (74-99) mg/dL POC Glucose (mg/dL) 116 H 138 H 130 H (70-110) mg/dL Calcium (8.4-10.2) mg/dL Total Bilirubin (0.2-1.3) mg/dL AST (14-36) U/L Total Protein (6.3-8.2) g/dL Albumin (3.5-5.0) g/dL 01/02/24 01/02/24 01/02/24 Range/Units 00:14 02:17 03:14 RBC (3.80-5.40) m/uL Hgb (11.4-16.0) gm/dL Hct (34.0-46.0) % RDW (11.5-15.5) % Plt Count (150-450) k/uL Sodium (137-145) mmol/L Chloride (98-107) mmol/L Carbon Dioxide (22-30) mmol/L BUN (7-17) mg/dL Glucose (74-99) mg/dL POC Glucose (mg/dL) 116 H 125 H 123 H (70-110) mg/dL Calcium (8.4-10.2) mg/dL Total Bilirubin (0.2-1.3) mg/dL AST (14-36) U/L Total Protein (6.3-8.2) g/dL Albumin (3.5-5.0) g/dL 01/02/24 01/02/24 01/02/24 Range/Units 03:29 03:29 04:08 RBC 2.88 L (3.80-5.40) m/uL Hgb 7.8 L (11.4-16.0) gm/dL Hct 24.7 L (34.0-46.0) % RDW 15.7 H (11.5-15.5) % Plt Count 84 L (150-450) k/uL Sodium 130 L (137-145) mmol/L Chloride 108 H (98-107) mmol/L Carbon Dioxide 20 L (22-30) mmol/L BUN 19 H (7-17) mg/dL Glucose 117 H (74-99) mg/dL POC Glucose (mg/dL) 126 H (70-110) mg/dL Calcium 8.2 L (8.4-10.2) mg/dL Total Bilirubin 1.4 H (0.2-1.3) mg/dL AST 57 H (14-36) U/L Total Protein 4.8 L (6.3-8.2) g/dL Albumin 2.3 L (3.5-5.0) g/dL 01/02/24 01/02/24 Range/Units 05:19 07:03 RBC (3.80-5.40) m/uL Hgb (11.4-16.0) gm/dL Hct (34.0-46.0) % RDW (11.5-15.5) % Plt Count (150-450) k/uL Sodium (137-145) mmol/L Chloride (98-107) mmol/L Carbon Dioxide (22-30) mmol/L BUN (7-17) mg/dL Glucose (74-99) mg/dL POC Glucose (mg/dL) 118 H 130 H (70-110) mg/dL Calcium (8.4-10.2) mg/dL Total Bilirubin (0.2-1.3) mg/dL AST (14-36) U/L Total Protein (6.3-8.2) g/dL Albumin (3.5-5.0) g/dL
[2024-01-02 09:12] LABS: Glucose,Whole Blood 239 mg/dL (70-110)
--- NOTE | 2024-01-02 09:18 | P.PN ---
Subjective Progress Note Date: 01/02/24 Principal diagnosis: Multivessel coronary artery disease. 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 POD #2 Off Pump Coronary Artery Bypass Grafting x 3. Left internal thoracic artery (in-situ) to left anterior descending coronary artery, reverse saphenous vein from aorta to obtuse marginal artery #1, reverse saphenous vein from aorta to distal coronary artery. Left Atrial Appendage Ligation with #35mm AtriClip, endoscopic bilateral greater saphenous vein harvest, graft flow measurements using the [employer]stim flow meter system, intraoperative transesophageal echocardiogram completed by anesthesia. Postoperative acute blood loss anemia and thrombocytopenia, expected given hemodilution and her preoperative anemia and thrombocytopenia. The patient was seen and examined in follow-up today January 02, 2024 at her bedside in the intensive care unit. The patient is currently sitting up to the bedside chair, is awake, alert, oriented x 3 and is in no acute apparent distress. Denies any complaints of shortness of breath at this time, although is complaining of some surgical type pain to her chest tube insertion sites, currently rating her pain 4/10. She has been up ambulating in the room with standby assistance from nursing and therapy staff and tolerating well. Oxygen saturations are 97% on 2 L nasal cannula and she is achieving 750 to 1000 mL on her incentive spirometry with encouragement. Bedside telemetry is showing normal sinus rhythm heart rate 68 bpm. Right IJ cordis remains in place with continuous CVP monitoring, current CVP pressure is 3 mmHg. She remains hemodynamically stable and is currently on no inotropic or pressor support. Mediastinal/left and right pleural chest tubes remain in place to low continuous wall suction -20 cm H2O. No air leak is present. Mediastinal chest tube drained 20 mL output in the last 8 hours and 150 mL output in the last 24 hours. Left/right pleural chest tubes remain in place draining 110 mL of thin serosanguineous drainage in the last 8 hours and 380 mL output in the last 24 hours. Laboratory and chest x-ray results reviewed. Objective - Vital Signs Vital signs: Vital Signs Temp 99.8 F H 01/02/24 04:00 Pulse 69 01/02/24 07:00 Resp 22 01/02/24 07:00 BP 111/45 01/02/24 07:00 Pulse Ox 93 L 01/02/24 07:00 FiO2 40 12/31/23 18:01 Intake & Output 01/01/24 01/02/24 01/02/24 18:59 06:59 18:59 Intake Total 798.764 533.110 49.501 Output Total 455 475 87 Balance 343.764 58.110 -37.499 Weight 81.9 kg 81.1 kg Intake: IV 737 506 46 0.9 @ 50 550 440 40 ceFAZolin 2 gm In Sodium 100 Chloride 0.9% 50 ml @ 100 mls/hr IVPB Q8HR [facility] Rx# :[id number] pressure bag 87 66 6 Intake, IV Titration 61.764 27.110 3.501 Amount Clevidipine Butyrate 25 21.4 mg In Empty Bag 1 bag @ 1 MG/HR 2 mls/hr IV .Q24H [facility] Rx#:[id number] Insulin Regular 100 unit 40.364 27.110 3.501 In Sodium Chloride 0.9% 100 ml @ Per Protocol IV .Q0M [facility] Rx#:[id number] Output: Chest Tube Drainage 210 180 70 L and R pleural 210 130 40 mediastinal 0 50 30 Drainage 10 Mediastinal 10 R and L pleural 0 Urine 235 295 17 Other: Voiding Method Indwelling Catheter Indwelling Catheter ABP, PAP, CO, CI - Last Documented Arterial Blood Pressure 95/33 Pulmonary Artery Pressure 23/3 Cardiac Output 5.7 Cardiac Index 3.3 - Exam CONSTITUTIONAL: Sitting up to the bedside chair in the intensive care unit, appears comfortable, cooperative, no apparent acute distress. HEENT: Neck is supple, no JVD, no lymphadenopathy. Right IJ Cordis in place and functioning. RESPIRATORY: Lungs sounds essentially clear throughout, diminished to her bilateral bases. Respirations are symmetrical and nonlabored. Currently on 2 L nasal cannula with oxygen saturations 97%. Able to achieve 750-1000 mL on her incentive spirometry. Strong cough. CARDIOVASCULAR: Regular rhythm and rate. S1 and S2 present, negative for S3, gallop or murmur. Bedside telemetry showing normal sinus rhythm. Sternum is stable. Palpable peripheral pulses bilaterally. No calf pain or tenderness noted. Heart hugger in place with patient demonstrating appropriate use. Knee- high BASHIR hose and sequential compression devices in place to his bilateral lower extremities. GASTROINTESTINAL: Abdomen soft, nontender, nondistended. Active bowel sounds present 4 quadrants. Tolerating clear liquid diet. Passing flatus. No guarding or rigidity. GENITOURINARY: Jennings present draining clear, yellow urine. Urine output 170 mL in the last 8 hours. INTEGUMENTARY: Skin is warm and dry with no evidence of clubbing or cyanosis. Midline sternal incision clean dry and well approximated, covered with dry intact dressing. Bilateral lower extremity EVH sites well approximated without redness or drainage. NEUROLOGIC: Cranial nerves II through XII intact. No focal deficits. MUSKULOSKELETAL: Able to move all extremities, strength equal bilaterally, generalized weakness. PSYCHIATRIC: Alert and oriented to person place and time, appropriate affect, intact judgment and insight. INVASIVE LINES AND TUBES: Mediastinal/left/right pleural chest tubes present and connected to low continuous wall suction, no air leaks present. Mediastinal tube with 20 mL of thin serosanguineous drainage overnight, 150 mL output in the last 24 hours. Left/right pleural chest tubes with 110 mL of thin serosanguineous drainage overnight, 380 mL output in the last 24 hours. Ventricular epicardial pacemaker wires present, connected to generator, VVI backup rate 50 bpm. Right internal jugular Cordis, right radial arterial line present. Last CVP 3 mmHg. - Allied health notes Allied health notes reviewed: nursing - Labs CBC & Chem 7: 01/02/24 03:29 01/02/24 03:29 Labs: Abnormal Lab Results - Last 24 Hours (Table) 01/01/24 01/01/24 01/01/24 Range/Units 09:57 11:53 13:06 RBC (3.80-5.40) m/uL Hgb (11.4-16.0) gm/dL Hct (34.0-46.0) % RDW (11.5-15.5) % Plt Count (150-450) k/uL Sodium (137-145) mmol/L Chloride (98-107) mmol/L Carbon Dioxide (22-30) mmol/L BUN (7-17) mg/dL Glucose (74-99) mg/dL POC Glucose (mg/dL) 134 H 187 H 136 H (70-110) mg/dL Calcium (8.4-10.2) mg/dL Total Bilirubin (0.2-1.3) mg/dL AST (14-36) U/L Total Protein (6.3-8.2) g/dL Albumin (3.5-5.0) g/dL 01/01/24 01/01/24 01/01/24 Range/Units 16:04 17:09 18:23 RBC (3.80-5.40) m/uL Hgb (11.4-16.0) gm/dL Hct (34.0-46.0) % RDW (11.5-15.5) % Plt Count (150-450) k/uL Sodium (137-145) mmol/L Chloride (98-107) mmol/L Carbon Dioxide (22-30) mmol/L BUN (7-17) mg/dL Glucose (74-99) mg/dL POC Glucose (mg/dL) 178 H 166 H 156 H (70-110) mg/dL Calcium (8.4-10.2) mg/dL Total Bilirubin (0.2-1.3) mg/dL AST (14-36) U/L Total Protein (6.3-8.2) g/dL Albumin (3.5-5.0) g/dL 01/01/24 01/01/24 01/01/24 Range/Units 20:21 22:07 23:04 RBC (3.80-5.40) m/uL Hgb (11.4-16.0) gm/dL Hct (34.0-46.0) % RDW (11.5-15.5) % Plt Count (150-450) k/uL Sodium (137-145) mmol/L Chloride (98-107) mmol/L Carbon Dioxide (22-30) mmol/L BUN (7-17) mg/dL Glucose (74-99) mg/dL POC Glucose (mg/dL) 116 H 138 H 130 H (70-110) mg/dL Calcium (8.4-10.2) mg/dL Total Bilirubin (0.2-1.3) mg/dL AST (14-36) U/L Total Protein (6.3-8.2) g/dL Albumin (3.5-5.0) g/dL 01/02/24 01/02/24 01/02/24 Range/Units 00:14 02:17 03:14 RBC (3.80-5.40) m/uL Hgb (11.4-16.0) gm/dL Hct (34.0-46.0) % RDW (11.5-15.5) % Plt Count (150-450) k/uL Sodium (137-145) mmol/L Chloride (98-107) mmol/L Carbon Dioxide (22-30) mmol/L BUN (7-17) mg/dL Glucose (74-99) mg/dL POC Glucose (mg/dL) 116 H 125 H 123 H (70-110) mg/dL Calcium (8.4-10.2) mg/dL Total Bilirubin (0.2-1.3) mg/dL AST (14-36) U/L Total Protein (6.3-8.2) g/dL Albumin (3.5-5.0) g/dL 01/02/24 01/02/24 01/02/24 Range/Units 03:29 03:29 04:08 RBC 2.88 L (3.80-5.40) m/uL Hgb 7.8 L (11.4-16.0) gm/dL Hct 24.7 L (34.0-46.0) % RDW 15.7 H (11.5-15.5) % Plt Count 84 L (150-450) k/uL Sodium 130 L (137-145) mmol/L Chloride 108 H (98-107) mmol/L Carbon Dioxide 20 L (22-30) mmol/L BUN 19 H (7-17) mg/dL Glucose 117 H (74-99) mg/dL POC Glucose (mg/dL) 126 H (70-110) mg/dL Calcium 8.2 L (8.4-10.2) mg/dL Total Bilirubin 1.4 H (0.2-1.3) mg/dL AST 57 H (14-36) U/L Total Protein 4.8 L (6.3-8.2) g/dL Albumin 2.3 L (3.5-5.0) g/dL 01/02/24 01/02/24 Range/Units 05:19 07:03 RBC (3.80-5.40) m/uL Hgb (11.4-16.0) gm/dL Hct (34.0-46.0) % RDW (11.5-15.5) % Plt Count (150-450) k/uL Sodium (137-145) mmol/L Chloride (98-107) mmol/L Carbon Dioxide (22-30) mmol/L BUN (7-17) mg/dL Glucose (74-99) mg/dL POC Glucose (mg/dL) 118 H 130 H (70-110) mg/dL Calcium (8.4-10.2) mg/dL Total Bilirubin (0.2-1.3) mg/dL AST (14-36) U/L Total Protein (6.3-8.2) g/dL Albumin (3.5-5.0) g/dL - Imaging and Cardiology Chest x-ray: report reviewed, image reviewed Assessment and Plan Assessment: Triple-vessel coronary artery disease, status post three-vessel off-pump coronary artery bypass grafting surgery Hypertension Hyperlipidemia, cholesterol 149, LDL 82 Insulin-dependent diabetes, hemoglobin A1c 9% Nonalcoholic liver cirrhosis, MELD score 8, child Moreau score 6, class A Chronic ongoing tobacco dependence Chronic anemia, with a preoperative hemoglobin of 10.4 Chronic thrombocytopenia, preoperative platelet count of 94 Family history of coronary artery disease Postoperative acute blood loss anemia and thrombocytopenia, expected given hemodilution and her preoperative anemia and thrombocytopenia Plan: Continue to maximize medical therapy with aspirin, statin, Plavix and beta yashira. Currently on her home dose of Coreg 25 mg p.o. twice daily. Wean O2 as tolerated, encourage incentive spirometry use 10 times every hour while awake, bronchodilators per pulmonology. Increase activity, ambulate as tolerated. PT/OT/cardiac rehab following. Continue amlodipine 10 mg p.o. daily with hold parameters, for radial artery spasm prophylaxis. Patient takes amlodipine 10 mg p.o. daily at home. Continue amiodarone 400 mg p.o. twice daily for atrial fibrillation prophylaxis. No atrial fibrillation has been reported, currently in normal sinus rhythm. Will monitor daily labs and chest x-rays. Electrolyte replacement per protocol. GI/DVT prophylaxis. Insulin management per internal medicine, patient should remain on IV insulin for 48 hours and then may transition to subcutaneous per protocol. The patient is an insulin dependent diabetic, with a preoperative hemoglobin A1c 9.0%. Pain control per current medication regimen. Discontinue right IJ Cordis, right brachial arterial line. We remove her mediastinal right and left pleural chest tubes today. Ground ventricular epicardial pacemaker wires. Have pacemaker generator available at bedside. Remove e Jennings catheter, continue to monitor and record strict accurate intake and output. Daily weights. More recommendations to follow based on patient's clinical course. Time with Patient: Greater than 30
[2024-01-02] MEDS: carvediloL 12.5 MG TAB PO SCH (09:38)
[2024-01-02] MEDS: FUROSEMIDE 10 MG/ML 2 ML VIAL IV STA (09:39)
--- NOTE | 2024-01-02 09:44 | P.PN ---
Subjective Progress Note Date: 01/02/24 This is a 78-year-old female patient with a known history of chronic tobacco dependence, chronic anemia, nonalcoholic liver cirrhosis, insulin-dependent diabetes mellitus, hyperlipidemia, hypertension and recently found to have triple-vessel coronary artery disease. She was brought in electively today and had undergone an off-pump coronary artery bypass grafting x 3 with a GARCIA to the LAD, reverse saphenous vein to the obtuse marginal artery 1, reverse saphenous grain from to the distal right coronary artery and left atrial appendage ligation. She is seen postoperatively in the intensive care unit. She is intubated on the mechanical ventilator currently on assist-control mode with a rate of 14, tidal volume 350, FiO2 50% and a PEEP of 10. Blood gases revealed a PaO2 of 312, pCO2 45 and a pH of 7.35 and 100% FiO2. She is sedated on propofol at 50 mcg/kg/min. She is on amiodarone drip at 1 mg/min. Insulin drip at 0.5 units an hour. Nitroglycerin drip at 10 mcg/min. Normal saline at 50 MLS per hour. Cardiac output 3.8. Cardiac index 2.2. PA pressures 27/12. CVP 6. Afebrile. Hemodynamically stable. Chest x-ray revealed bilateral consolidation and pleural effusion. No sizable pneumothorax. Right left and mediastinal chest tubes in place. White count 7.6. Hemoglobin 8.0. Platelets 85,000. INR 1.5. Sodium 136. Potassium 4.1. Bicarb 24. BUN 9. Creatinine 0.55. Glucose 117. Albumin 2.6. She is continued on bronchodilators. Heparin for DVT prophylaxis. The patient is seen today January 01, 2024 in follow-up in the intensive care unit. She is currently sitting up in a chair. Awake and alert in no acute distress. She is maintaining good O2 saturations in the 90s on 2 L/min per nasal cannula. She remains on normal saline at 50 MLS per hour. Nitroglycerin drip at 5 mcg/min. Cleviprex at 6 mg an hour. Amiodarone at 0.5 mg/min. Insulin drip at 3 units/h. Cardiac output 5.7. Cardiac index 3.3. PA pressure 25/7. CVP 2. Afebrile. Hemodynamically stable. Chest x-ray reveals increased pulmonary venous congestion and increased patchy infiltrate in the left lower lobe. Mediastinal, left and right chest tubes remain in place. She is encouraged re garding the increased use of the incentive spirometer. White count 13.8. Hemoglobin 9.0. Platelets 122. Sodium 132. Potassium 3.8. Bicarb 20. BUN 10. Creatinine 0.57. Glucose 120. She is continued on DuoNeb inhalations. Heparin for DVT prophylaxis. The patient is seen today January 02, 2024 in follow-up in the intensive care unit. Postoperative day #2. She is awake and alert in no acute distress. Sitting up in a chair at the bedside. Feeling a bit better today compared to yesterday. She is maintaining good O2 saturations in the 90s on 2 L/min per nasal cannula. She has normal saline at 30 MLS per hour. Continues on an insulin drip at 2.5 units/h. She is continued on DuoNeb inhalations. Heparin for DVT prophylaxis. Working well with the incentive spirometer. Chest x-ray shows no acute pulmonary process. Chest tubes remain in place. White count 10.2. Hemoglobin 7.8. Platelets 84,000. Sodium 130. Potassium 4.3. Bicarb 20. BUN 19. Creatinine 0.84. Glucose 117. Objective - Vital Signs Vital signs: Vital Signs Temp 98.2 F 01/02/24 08:30 Pulse 65 01/02/24 09:36 Resp 28 H 01/02/24 08:30 BP 133/112 01/02/24 09:03 Pulse Ox 94 L 01/02/24 09:36 FiO2 40 12/31/23 18:01 Intake & Output 01/01/24 01/02/24 01/02/24 18:59 06:59 18:59 Intake Total 798.764 533.110 127.435 Output Total 455 475 152 Balance 343.764 58.110 -24.565 Weight 81.9 kg 81.1 kg Intake: IV 737 506 118 0.9 @ 50 550 440 100 ceFAZolin 2 gm In Sodium 100 Chloride 0.9% 50 ml @ 100 mls/hr IVPB Q8HR [facility] Rx# :[id number] pressure bag 87 66 18 Intake, IV Titration 61.764 27.110 9.435 Amount Clevidipine Butyrate 25 21.4 mg In Empty Bag 1 bag @ 1 MG/HR 2 mls/hr IV .Q24H [facility] Rx#:[id number] Insulin Regular 100 unit 40.364 27.110 9.435 In Sodium Chloride 0.9% 100 ml @ Per Protocol IV .Q0M [facility] Rx#:[id number] Output: Chest Tube Drainage 210 180 120 L and R pleural 210 130 70 mediastinal 0 50 50 Drainage 10 Mediastinal 10 R and L pleural 0 Urine 235 295 32 Other: Voiding Method Indwelling Catheter Indwelling Catheter ABP, PAP, CO, CI - Last Documented Arterial Blood Pressure 95/33 Pulmonary Artery Pressure 23/3 Cardiac Output 5.7 Cardiac Index 3.3 - Exam GENERAL EXAM: Awake, 78-year-old female, on 2 L nasal cannula, up in a chair, in no apparent distress. HEAD: Normocephalic. EYES: Normal reaction of pupils, equal size. NOSE: Clear with pink turbinates. THROAT: No erythema or exudates. NECK: No masses, no JVD. CHEST: Sternal dressing dry and intact. Heart hugger in place. Mediastinal, right/left chest tubes in place LUNGS: Equal air entry with few scattered rhonchi. CVS: S1 and S2 normal with no audible murmur, regular rhythm. ABDOMEN: No hepatosplenomegaly, normal bowel sounds, no guarding or rigidity. SPINE: No scoliosis or deformity SKIN: No rashes CENTRAL NERVOUS SYSTEM: No focal deficits, tone is normal in all 4 extremities. EXTREMITIES: Right brachial arterial line in place. SCDs in place, there is no peripheral edema. Peripheral pulses are intact. - Labs CBC & Chem 7: 01/02/24 03:29 01/02/24 03:29 Labs: Abnormal Lab Results - Last 24 Hours (Table) 01/01/24 01/01/24 01/01/24 Range/Units 09:57 11:53 13:06 RBC (3.80-5.40) m/uL Hgb (11.4-16.0) gm/dL Hct (34.0-46.0) % RDW (11.5-15.5) % Plt Count (150-450) k/uL Sodium (137-145) mmol/L Chloride (98-107) mmol/L Carbon Dioxide (22-30) mmol/L BUN (7-17) mg/dL Glucose (74-99) mg/dL POC Glucose (mg/dL) 134 H 187 H 136 H (70-110) mg/dL Calcium (8.4-10.2) mg/dL Total Bilirubin (0.2-1.3) mg/dL AST (14-36) U/L Total Protein (6.3-8.2) g/dL Albumin (3.5-5.0) g/dL 01/01/24 01/01/24 01/01/24 Range/Units 16:04 17:09 18:23 RBC (3.80-5.40) m/uL Hgb (11.4-16.0) gm/dL Hct (34.0-46.0) % RDW (11.5-15.5) % Plt Count (150-450) k/uL Sodium (137-145) mmol/L Chloride (98-107) mmol/L Carbon Dioxide (22-30) mmol/L BUN (7-17) mg/dL Glucose (74-99) mg/dL POC Glucose (mg/dL) 178 H 166 H 156 H (70-110) mg/dL Calcium (8.4-10.2) mg/dL Total Bilirubin (0.2-1.3) mg/dL AST (14-36) U/L Total Protein (6.3-8.2) g/dL Albumin (3.5-5.0) g/dL 01/01/24 01/01/24 01/01/24 Range/Units 20:21 22:07 23:04 RBC (3.80-5.40) m/uL Hgb (11.4-16.0) gm/dL Hct (34.0-46.0) % RDW (11.5-15.5) % Plt Count (150-450) k/uL Sodium (137-145) mmol/L Chloride (98-107) mmol/L Carbon Dioxide (22-30) mmol/L BUN (7-17) mg/dL Glucose (74-99) mg/dL POC Glucose (mg/dL) 116 H 138 H 130 H (70-110) mg/dL Calcium (8.4-10.2) mg/dL Total Bilirubin (0.2-1.3) mg/dL AST (14-36) U/L Total Protein (6.3-8.2) g/dL Albumin (3.5-5.0) g/dL 01/02/24 01/02/24 01/02/24 Range/Units 00:14 02:17 03:14 RBC (3.80-5.40) m/uL Hgb (11.4-16.0) gm/dL Hct (34.0-46.0) % RDW (11.5-15.5) % Plt Count (150-450) k/uL Sodium (137-145) mmol/L Chloride (98-107) mmol/L Carbon Dioxide (22-30) mmol/L BUN (7-17) mg/dL Glucose (74-99) mg/dL POC Glucose (mg/dL) 116 H 125 H 123 H (70-110) mg/dL Calcium (8.4-10.2) mg/dL Total Bilirubin (0.2-1.3) mg/dL AST (14-36) U/L Total Protein (6.3-8.2) g/dL Albumin (3.5-5.0) g/dL 01/02/24 01/02/24 01/02/24 Range/Units 03:29 03:29 04:08 RBC 2.88 L (3.80-5.40) m/uL Hgb 7.8 L (11.4-16.0) gm/dL Hct 24.7 L (34.0-46.0) % RDW 15.7 H (11.5-15.5) % Plt Count 84 L (150-450) k/uL Sodium 130 L (137-145) mmol/L Chloride 108 H (98-107) mmol/L Carbon Dioxide 20 L (22-30) mmol/L BUN 19 H (7-17) mg/dL Glucose 117 H (74-99) mg/dL POC Glucose (mg/dL) 126 H (70-110) mg/dL Calcium 8.2 L (8.4-10.2) mg/dL Total Bilirubin 1.4 H (0.2-1.3) mg/dL AST 57 H (14-36) U/L Total Protein 4.8 L (6.3-8.2) g/dL Albumin 2.3 L (3.5-5.0) g/dL 01/02/24 01/02/24 01/02/24 Range/Units 05:19 07:03 09:09 RBC (3.80-5.40) m/uL Hgb (11.4-16.0) gm/dL Hct (34.0-46.0) % RDW (11.5-15.5) % Plt Count (150-450) k/uL Sodium (137-145) mmol/L Chloride (98-107) mmol/L Carbon Dioxide (22-30) mmol/L BUN (7-17) mg/dL Glucose (74-99) mg/dL POC Glucose (mg/dL) 118 H 130 H 239 H (70-110) mg/dL Calcium (8.4-10.2) mg/dL Total Bilirubin (0.2-1.3) mg/dL AST (14-36) U/L Total Protein (6.3-8.2) g/dL Albumin (3.5-5.0) g/dL Assessment and Plan Assessment: Triple-vessel coronary artery disease status post off-pump coronary artery bypa ss grafting x 3. Left internal thoracic artery to the LAD, reverse saphenous vein graft to the obtuse marginal artery, reverse saphenous vein graft to the distal right coronary artery. Left atrial appendage ligation. Postoperative day #2 Postoperative mechanical ventilator management, recovered and on 2 L nasal cannula Acute on chronic anemia, expected outcome of surgery. Hemoglobin 7.8 Thrombocytopenia, expected outcome of surgery, current platelets 84,000 History of hypertension Diabetes mellitus Hyperlipidemia History of gastric esophageal reflux disease History of nonalcoholic liver disease Chronic tobacco dependence History of GI bleed Plan: The patient was seen and evaluated Chest x-ray, labs and medications reviewed Encourage increased use of the incentive spirometer Continue bronchodilators Heparin for DVT prophylaxis Increase her activity as tolerated We will continue to follow I have personally seen and examined the patient, performed the documentation and the assessment and plan as written. Number of minutes spent on the visit: 10.
[2024-01-02 11:13] LABS: Glucose,Whole Blood 152 mg/dL (70-110)
[2024-01-02 12:25] LABS: Glucose,Whole Blood 131 mg/dL (70-110)
[2024-01-02] MEDS ORDERED: DEXTROSE 50% SYRINGE 50 ML IVP PRN ×2 (12:42)
[2024-01-02] MEDS: amLODIPine 10 MG TAB PO SCH (12:59)
--- NOTE | 2024-01-02 13:26 | P.PN ---
Subjective Progress Note Date: 01/02/24 Subjective Patient this morning was somnolent lethargic. Per nurses patient has not been eating much and is on a clear liquid diet. Patient states that she is on insulin at home. Patient currently on insulin drip. Physical exam General examination - Alert and Oriented 3 in NAD, patient appears chronically debilitated Heart - + S1S2 no murmurs Lungs - Clear to auscultation, heart hugger in place Abdomen soft NT ND +ve BS Extremities - No edema [employer] - Moving all 4 extremities spontaneously Psych - Calm and cooperative Assessment and plan Diabetes mellitus Type II Patient blood glucose has been acceptable with range being between 118 and 234 Will transition patient from insulin drip to subcu insulin At home she is taking total of 79 units of Lantus nightly and 60 units in the morning. Patient currently not eating much so we will start her on Lantus 20 mg twice daily and sliding scale insulin Titrate insulin for better control A1c 9 Triple-vessel coronary artery disease status post bypass grafting x 3 Management per primary cardiothoracic surgery team Continue with aspirin Continue Plavix Continue with atorvastatin Chest tube care Patient given one-time dose of IV Lasix 20 mg this morning Pain control with opiates Bicytopenia Thrombocytopenia Acute on chronic anemia precipitated by cardiac surgery Platelet count dropped today to 84 Hemoglobin this morning is 7.8. Transfuse for hemoglobin less than 7 Hypertension Continue with Coreg 25 mg twice daily History of nonalcoholic steatohepatitis GERD Stable Protonix 40 mg p.o. daily Hypomagnesemia Magnesium this morning 1.8 Full code DVT prophylaxis on heparin 5000 units subcu 3 times a day Thank you for this consultation we will continue to follow-up Objective - Vital Signs Vital signs: Vital Signs Temp 98.0 F 01/02/24 12:00 Pulse 61 01/02/24 13:00 Resp 29 H 01/02/24 13:00 BP 108/52 01/02/24 12:30 Pulse Ox 92 L 01/02/24 13:00 FiO2 40 12/31/23 18:01 Intake & Output 01/01/24 01/02/24 01/02/24 18:59 06:59 18:59 Intake Total 798.764 533.110 454.830 Output Total 455 475 212 Balance 343.764 58.110 242.830 Weight 81.9 kg 81.1 kg Intake: IV 737 506 190 0.9 @ 50 550 440 160 ceFAZolin 2 gm In Sodium 100 Chloride 0.9% 50 ml @ 100 mls/hr IVPB Q8HR [facility] Rx# :[id number] pressure bag 87 66 30 Intake, IV Titration 61.764 27.110 24.830 Amount Clevidipine Butyrate 25 21.4 mg In Empty Bag 1 bag @ 1 MG/HR 2 mls/hr IV .Q24H [facility] Rx#:[id number] Insulin Regular 100 unit 40.364 27.110 24.830 In Sodium Chloride 0.9% 100 ml @ Per Protocol IV .Q0M [facility] Rx#:[id number] Oral 240 Output: Chest Tube Drainage 210 180 120 L and R pleural 210 130 70 mediastinal 0 50 50 Drainage 10 Mediastinal 10 R and L pleural 0 Urine 235 295 92 Other: Voiding Method Indwelling Catheter Indwelling Catheter Indwelling Catheter ABP, PAP, CO, CI - Last Documented Arterial Blood Pressure 115/39 Pulmonary Artery Pressure 23/3 Cardiac Output 5.7 Cardiac Index 3.3 - Labs CBC & Chem 7: 01/02/24 03:29 01/02/24 03:29 Labs: Abnormal Lab Results - Last 24 Hours (Table) 01/01/24 01/01/24 01/01/24 Range/Units 16:04 17:09 18:23 RBC (3.80-5.40) m/uL Hgb (11.4-16.0) gm/dL Hct (34.0-46.0) % RDW (11.5-15.5) % Plt Count (150-450) k/uL Sodium (137-145) mmol/L Chloride (98-107) mmol/L Carbon Dioxide (22-30) mmol/L BUN (7-17) mg/dL Glucose (74-99) mg/dL POC Glucose (mg/dL) 178 H 166 H 156 H (70-110) mg/dL Calcium (8.4-10.2) mg/dL Total Bilirubin (0.2-1.3) mg/dL AST (14-36) U/L Total Protein (6.3-8.2) g/dL Albumin (3.5-5.0) g/dL 01/01/24 01/01/24 01/01/24 Range/Units 20:21 22:07 23:04 RBC (3.80-5.40) m/uL Hgb (11.4-16.0) gm/dL Hct (34.0-46.0) % RDW (11.5-15.5) % Plt Count (150-450) k/uL Sodium (137-145) mmol/L Chloride (98-107) mmol/L Carbon Dioxide (22-30) mmol/L BUN (7-17) mg/dL Glucose (74-99) mg/dL POC Glucose (mg/dL) 116 H 138 H 130 H (70-110) mg/dL Calcium (8.4-10.2) mg/dL Total Bilirubin (0.2-1.3) mg/dL AST (14-36) U/L Total Protein (6.3-8.2) g/dL Albumin (3.5-5.0) g/dL 01/02/24 01/02/24 01/02/24 Range/Units 00:14 02:17 03:14 RBC (3.80-5.40) m/uL Hgb (11.4-16.0) gm/dL Hct (34.0-46.0) % RDW (11.5-15.5) % Plt Count (150-450) k/uL Sodium (137-145) mmol/L Chloride (98-107) mmol/L Carbon Dioxide (22-30) mmol/L BUN (7-17) mg/dL Glucose (74-99) mg/dL POC Glucose (mg/dL) 116 H 125 H 123 H (70-110) mg/dL Calcium (8.4-10.2) mg/dL Total Bilirubin (0.2-1.3) mg/dL AST (14-36) U/L Total Protein (6.3-8.2) g/dL Albumin (3.5-5.0) g/dL 01/02/24 01/02/24 01/02/24 Range/Units 03:29 03:29 04:08 RBC 2.88 L (3.80-5.40) m/uL Hgb 7.8 L (11.4-16.0) gm/dL Hct 24.7 L (34.0-46.0) % RDW 15.7 H (11.5-15.5) % Plt Count 84 L (150-450) k/uL Sodium 130 L (137-145) mmol/L Chloride 108 H (98-107) mmol/L Carbon Dioxide 20 L (22-30) mmol/L BUN 19 H (7-17) mg/dL Glucose 117 H (74-99) mg/dL POC Glucose (mg/dL) 126 H (70-110) mg/dL Calcium 8.2 L (8.4-10.2) mg/dL Total Bilirubin 1.4 H (0.2-1.3) mg/dL AST 57 H (14-36) U/L Total Protein 4.8 L (6.3-8.2) g/dL Albumin 2.3 L (3.5-5.0) g/dL 01/02/24 01/02/24 01/02/24 Range/Units 05:19 07:03 09:09 RBC (3.80-5.40) m/uL Hgb (11.4-16.0) gm/dL Hct (34.0-46.0) % RDW (11.5-15.5) % Plt Count (150-450) k/uL Sodium (137-145) mmol/L Chloride (98-107) mmol/L Carbon Dioxide (22-30) mmol/L BUN (7-17) mg/dL Glucose (74-99) mg/dL POC Glucose (mg/dL) 118 H 130 H 239 H (70-110) mg/dL Calcium (8.4-10.2) mg/dL Total Bilirubin (0.2-1.3) mg/dL AST (14-36) U/L Total Protein (6.3-8.2) g/dL Albumin (3.5-5.0) g/dL 01/02/24 01/02/24 Range/Units 11:12 12:23 RBC (3.80-5.40) m/uL Hgb (11.4-16.0) gm/dL Hct (34.0-46.0) % RDW (11.5-15.5) % Plt Count (150-450) k/uL Sodium (137-145) mmol/L Chloride (98-107) mmol/L Carbon Dioxide (22-30) mmol/L BUN (7-17) mg/dL Glucose (74-99) mg/dL POC Glucose (mg/dL) 152 H 131 H (70-110) mg/dL Calcium (8.4-10.2) mg/dL Total Bilirubin (0.2-1.3) mg/dL AST (14-36) U/L Total Protein (6.3-8.2) g/dL Albumin (3.5-5.0) g/dL
[2024-01-02] MEDS: HYDROcodone/APAP 10-325MG 1 EACH TAB PO PRN (16:05)
[2024-01-02 16:33] LABS: Glucose,Whole Blood 208 mg/dL (70-110)
[2024-01-02] MEDS: INSULIN ASPART (NovoLOG) 100 UNIT/ML VIAL SQ SCH (16:35)
[2024-01-02] MEDS: ALBUMIN HUMAN 5% 250 ML in EMPTY BAG 1 BAG IVPB ONE (19:36)
[2024-01-02 19:49] LABS: Glucose,Whole Blood 252 mg/dL (70-110)
[2024-01-02] MEDS: INSULIN DETEMIR (LEVEMIR) 100 UNIT/ML SYR SQ SCH (21:39)
[2024-01-03 01:19] LABS: African American GFR (CKD) 51 (>60 ml/min/1.73 sqM); Blood Urea Nitrogen 34 mg/dL (7-17); Non-African American GFR(CKD) 44 (>60 ml/min/1.73 sqM)
[2024-01-03] MEDS: DEXTROSE/WATER 1 250ML.BAG with DOPamine DRIP 800 MG IV SCH (01:52)
[2024-01-03 05:45] LABS: Basophils % (A) 0 %; Eosinophils % (A) 0 %; HCT 22.6 % (34.0-46.0); HGB 7.2 gm/dL (11.4-16.0); Hypochromasia Marked; Lymphocytes % (A) 12 %; MCH 27.6 pg (25.0-35.0); MCHC 31.7 g/dL (31.0-37.0); MCV 87.1 fL (80.0-100.0); Mean Platelet Volume 9.6; Monocytes % (A) 7 %; Neutrophils % (A) 79 %; Platelet Count 104 k/uL (150-450); RDW 15.8 % (11.5-15.5); WBC 10.1 k/uL (3.8-10.6)
[2024-01-03 05:46] LABS: Lymphocytes # (A) 1.2 k/uL (1.0-4.8); Monocytes # (A) 0.7 k/uL (0-1.0)
[2024-01-03 05:59] LABS: ALT 15 U/L (4-34); AST 71 U/L (14-36); African American GFR (CKD) 56 (>60 ml/min/1.73 sqM); Albumin 2.6 g/dL (3.5-5.0); Alkaline Phosphatase 67 U/L (38-126); Anion Gap 6 mmol/L; Blood Urea Nitrogen 34 mg/dL (7-17); Carbon Dioxide 17 mmol/L (22-30); Chloride 107 mmol/L (98-107); Glucose 185 mg/dL (74-99); Magnesium 2.1 mg/dL (1.6-2.3); Non-African American GFR(CKD) 49 (>60 ml/min/1.73 sqM); Potassium 4.3 mmol/L (3.5-5.1); Sodium 130 mmol/L (137-145); Total Bilirubin 1.5 mg/dL (0.2-1.3); Total Protein 5.1 g/dL (6.3-8.2)
[2024-01-03 06:22] LABS: Glucose,Whole Blood 238 mg/dL (70-110)
[2024-01-03] MEDS: carvediloL 6.25 MG TAB PO SCH (08:03)
--- NOTE | 2024-01-03 09:07 | P.PN ---
Subjective Progress Note Date: 01/03/24 Principal diagnosis: Multivessel coronary artery disease. 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 POD #3 Off Pump Coronary Artery Bypass Grafting x 3. Left internal thoracic artery (in-situ) to left anterior descending coronary artery, reverse saphenous vein from aorta to obtuse marginal artery #1, reverse saphenous vein from aorta to distal coronary artery. Left Atrial Appendage Ligation with #35mm AtriClip, endoscopic bilateral greater saphenous vein harvest, graft flow measurements using the [employer]-stim flow meter system, intraoperative transesophageal echocardiogram completed by anesthesia. Postoperative acute blood loss anemia and thrombocytopenia, expected given hemodilution and her preoperative anemia and thrombocytopenia. The patient was seen and examined in follow-up today January 03, 2024 at her bedside in the intensive care unit. She is currently sitting up to the bedside chair, is awake, alert, oriented x 3 and is in no acute apparent distress. She denies any complaints of shortness of breath at this time, although is complaining of some back pain which she reports is chronic in nature. The patient states her pain is much better controlled now that her chest tubes have been removed. She was started on dopamine drip at 3 mcg/kg/min which is currently infusing for renal dose for some urine retention during the night. She has voided 300 mL of urine in the last 8 hours. Oxygen saturations are 93% on 4 L nasal cannula and she is achieving 1000 mL on her incentive spirometry with encouragement. Bedside telemetry is showing normal sinus rhythm heart rate 72 bpm. Current blood pressure is 128/50 with a MAP of 100. Her mediastinal right, and left pleural chest tubes were removed yesterday without incident. Ventricular epicardial pacemaker wires remain in place and are currently grounded. She has been up ambulating in the intensive care unit hallway with standby assistance from nursing and therapy staff and tolerating well. Chest x- ray and laboratory results were reviewed. Objective - Vital Signs Vital signs: Vital Signs Temp 98.7 F 01/03/24 08:00 Pulse 73 01/03/24 08:00 Resp 22 01/03/24 08:00 BP 128/50 01/03/24 08:00 Pulse Ox 92 L 01/03/24 08:00 FiO2 40 12/31/23 18:01 Intake & Output 01/02/24 01/03/24 01/03/24 18:59 06:59 18:59 Intake Total 704.830 50 120 Output Total 212 0 300 Balance 492.830 50 -180 Intake: IV 200 50 20 0.9% NS @ KVO 170 50 20 pressure bag 30 Intake, IV Titration 24.830 Amount Insulin Regular 100 unit 24.830 In Sodium Chloride 0.9% 100 ml @ Per Protocol IV .Q0M [facility] Rx#:[id number] Oral 480 100 Output: Chest Tube Drainage 120 L and R pleural 70 mediastinal 50 Urine 92 0 300 Other: Voiding Method Indwelling Catheter Bedside Commode ABP, PAP, CO, CI - Last Documented Arterial Blood Pressure 115/39 Pulmonary Artery Pressure 23/3 Cardiac Output 5.7 Cardiac Index 3.3 - Exam CONSTITUTIONAL: Sitting up to the bedside chair in the intensive care unit, ap pears comfortable, cooperative, no apparent acute distress. HEENT: Neck is supple, no JVD, no lymphadenopathy. RESPIRATORY: Lungs sounds essentially clear throughout, diminished to her bilateral bases. Respirations are symmetrical and nonlabored. Currently on 4 L nasal cannula with oxygen saturations 93%. Able to achieve 750-1000 mL on her incentive spirometry. Strong cough. CARDIOVASCULAR: Regular rhythm and rate. S1 and S2 present, negative for S3, gallop or murmur. Bedside telemetry showing normal sinus rhythm, heart rate 72 bpm. Sternum is stable. Palpable peripheral pulses bilaterally. No calf pain or tenderness noted. Heart hugger in place with patient demonstrating approp riate use. Knee-high BASHIR hose and sequential compression devices in place to his bilateral lower extremities. GASTROINTESTINAL: Abdomen soft, nontender, nondistended. Active bowel sounds present 4 quadrants. Tolerating clear liquid diet. Passing flatus. No guarding or rigidity. GENITOURINARY: Continues to void. Urine output 300 mL in the last 8 hours. INTEGUMENTARY: Skin is warm and dry with no evidence of clubbing or cyanosis. Midline sternal incision clean dry and well approximated, covered with dry intact dressing. Bilateral lower extremity EVH sites well approximated without redness or drainage. NEUROLOGIC: Cranial nerves II through XII intact. No focal deficits. MUSKULOSKELETAL: Able to move all extremities, strength equal bilaterally, generalized weakness. PSYCHIATRIC: Alert and oriented to person place and time, appropriate affect, intact judgment and insight. INVASIVE LINES AND TUBES: Ventricular epicardial pacemaker wires present, currently grounded. - Allied health notes Allied health notes reviewed: nursing - Labs CBC & Chem 7: 01/03/24 04:41 01/03/24 04:41 Labs: Abnormal Lab Results - Last 24 Hours (Table) 01/02/24 01/02/24 01/02/24 Range/Units 09:09 11:12 12:23 RBC (3.80-5.40) m/uL Hgb (11.4-16.0) gm/dL Hct (34.0-46.0) % RDW (11.5-15.5) % Plt Count (150-450) k/uL Neutrophils # (1.3-7.7) k/uL Sodium (137-145) mmol/L Carbon Dioxide (22-30) mmol/L BUN (7-17) mg/dL Creatinine (0.52-1.04) mg/dL Glucose (74-99) mg/dL POC Glucose (mg/dL) 239 H 152 H 131 H (70-110) mg/dL Calcium (8.4-10.2) mg/dL Total Bilirubin (0.2-1.3) mg/dL AST (14-36) U/L Total Protein (6.3-8.2) g/dL Albumin (3.5-5.0) g/dL 01/02/24 01/02/24 01/03/24 Range/Units 16:31 19:46 00:34 RBC (3.80-5.40) m/uL Hgb (11.4-16.0) gm/dL Hct (34.0-46.0) % RDW (11.5-15.5) % Plt Count (150-450) k/uL Neutrophils # (1.3-7.7) k/uL Sodium (137-145) mmol/L Carbon Dioxide (22-30) mmol/L BUN 34 H (7-17) mg/dL Creatinine 1.20 H (0.52-1.04) mg/dL Glucose (74-99) mg/dL POC Glucose (mg/dL) 208 H 252 H (70-110) mg/dL Calcium (8.4-10.2) mg/dL Total Bilirubin (0.2-1.3) mg/dL AST (14-36) U/L Total Protein (6.3-8.2) g/dL Albumin (3.5-5.0) g/dL 01/03/24 01/03/24 01/03/24 Range/Units 04:41 04:41 06:20 RBC 2.60 L (3.80-5.40) m/uL Hgb 7.2 L (11.4-16.0) gm/dL Hct 22.6 L (34.0-46.0) % RDW 15.8 H (11.5-15.5) % Plt Count 104 L (150-450) k/uL Neutrophils # 8.0 H (1.3-7.7) k/uL Sodium 130 L (137-145) mmol/L Carbon Dioxide 17 L (22-30) mmol/L BUN 34 H (7-17) mg/dL Creatinine 1.11 H (0.52-1.04) mg/dL Glucose 185 H (74-99) mg/dL POC Glucose (mg/dL) 238 H (70-110) mg/dL Calcium 8.0 L (8.4-10.2) mg/dL Total Bilirubin 1.5 H (0.2-1.3) mg/dL AST 71 H (14-36) U/L Total Protein 5.1 L (6.3-8.2) g/dL Albumin 2.6 L (3.5-5.0) g/dL - Imaging and Cardiology Chest x-ray: report reviewed, image reviewed Assessment and Plan Assessment: Triple-vessel coronary artery disease, status post three-vessel off-pump coronary artery bypass grafting surgery Hypertension Hyperlipidemia, cholesterol 149, LDL 82 Insulin-dependent diabetes, hemoglobin A1c 9% Nonalcoholic liver cirrhosis, MELD score 8, child Moreau score 6, class A Chronic ongoing tobacco dependence Chronic anemia, with a preoperative hemoglobin of 10.4 Chronic thrombocytopenia, preoperative platelet count of 94 Family history of coronary artery disease Postoperative acute blood loss anemia and thrombocytopenia, expected given hemodilution and her preoperative anemia and thrombocytopenia Plan: Continue to maximize medical therapy with aspirin, statin, Plavix and beta yashira. Currently on Coreg 6.25 mg p.o. twice daily with hold parameters. Wean O2 as tolerated, encourage incentive spirometry use 10 times every hour while awake, bronchodilators per pulmonology. Increase activity, ambulate as tolerated. PT/OT/cardiac rehab following. Amlodipine was discontinued yesterday due to some hypotension. Blood pressure currently 128/50 with a MAP of 100. Continue amiodarone 400 mg p.o. twice daily for atrial fibrillation prophylaxis. No atrial fibrillation has been reported, currently in normal sinus rhythm. Will monitor daily labs and chest x-rays. Electrolyte replacement per protocol. GI/DVT prophylaxis. Insulin management per internal medicine. The patient is an insulin dependent diabetic, with a preoperative hemoglobin A1c 9.0%. Will need tight blood sugar control to promote healing. Pain control per current medication regimen. Shower daily. Continue dopamine drip at 3 mcg/kg/min. Keep ventricular epicardial pacemaker wires, currently the pacemaker wires are grounded. Have pacemaker generator available at bedside. Continue to monitor and record strict accurate intake and output. Daily weights. Transfer orders will be placed to the third floor cardiac stepdown unit. More recommendations to follow based on patient's clinical course. Time with Patient: Greater than 30
--- NOTE | 2024-01-03 10:05 | XR ---
EXAMINATION TYPE: XR chest 1V portable DATE OF EXAM: 01/03/2024 COMPARISON: 01/02/2024 HISTORY: Post CABG TECHNIQUE: Single frontal view of the chest is obtained. FINDINGS: The right jugular central venous catheter and bilateral chest tubes have been removed in the interval . There are [id number] bilateral pleural effusions essentially unchanged compared to previous. There is no pneumothorax. There postoperative CABG changes. There is reverse right shoulder prosthesis.. IMPRESSION: 1. Interval removal of the right jugular central venous catheter and bilateral chest tubes. 2. No pneumothorax. 3. No change in the small to moderate bilateral pleural effusions.
--- NOTE | 2024-01-03 11:08 | P.PN ---
Subjective Progress Note Date: 01/03/24 This is a 78-year-old female patient with a known history of chronic tobacco dependence, chronic anemia, nonalcoholic liver cirrhosis, insulin-dependent diabetes mellitus, hyperlipidemia, hypertension and recently found to have triple-vessel coronary artery disease. She was brought in electively today and had undergone an off-pump coronary artery bypass grafting x 3 with a GARCIA to the LAD, reverse saphenous vein to the obtuse marginal artery 1, reverse saphenous grain from to the distal right coronary artery and left atrial appendage ligation. She is seen postoperatively in the intensive care unit. She is intubated on the mechanical ventilator currently on assist-control mode with a rate of 14, tidal volume 350, FiO2 50% and a PEEP of 10. Blood gases revealed a PaO2 of 312, pCO2 45 and a pH of 7.35 and 100% FiO2. She is sedated on propofol at 50 mcg/kg/min. She is on amiodarone drip at 1 mg/min. Insulin drip at 0.5 units an hour. Nitroglycerin drip at 10 mcg/min. Normal saline at 50 MLS per hour. Cardiac output 3.8. Cardiac index 2.2. PA pressures 27/12. CVP 6. Afebrile. Hemodynamically stable. Chest x-ray revealed bilateral consolidation and pleural effusion. No sizable pneumothorax. Right left and mediastinal chest tubes in place. White count 7.6. Hemoglobin 8.0. Platelets 85,000. INR 1.5. Sodium 136. Potassium 4.1. Bicarb 24. BUN 9. Creatinine 0.55. Glucose 117. Albumin 2.6. She is continued on bronchodilators. Heparin for DVT prophylaxis. The patient is seen today January 01, 2024 in follow-up in the intensive care unit. She is currently sitting up in a chair. Awake and alert in no acute distress. She is maintaining good O2 saturations in the 90s on 2 L/min per nasal cannula. She remains on normal saline at 50 MLS per hour. Nitroglycerin drip at 5 mcg/min. Cleviprex at 6 mg an hour. Amiodarone at 0.5 mg/min. Insulin drip at 3 units/h. Cardiac output 5.7. Cardiac index 3.3. PA pressure 25/7. CVP 2. Afebrile. Hemodynamically stable. Chest x-ray reveals increased pulmonary venous congestion and increased patchy infiltrate in the left lower lobe. Mediastinal, left and right chest tubes remain in place. She is encouraged re garding the increased use of the incentive spirometer. White count 13.8. Hemoglobin 9.0. Platelets 122. Sodium 132. Potassium 3.8. Bicarb 20. BUN 10. Creatinine 0.57. Glucose 120. She is continued on DuoNeb inhalations. Heparin for DVT prophylaxis. The patient is seen today January 02, 2024 in follow-up in the intensive care unit. Postoperative day #2. She is awake and alert in no acute distress. Sitting up in a chair at the bedside. Feeling a bit better today compared to yesterday. She is maintaining good O2 saturations in the 90s on 2 L/min per nasal cannula. She has normal saline at 30 MLS per hour. Continues on an insulin drip at 2.5 units/h. She is continued on DuoNeb inhalations. Heparin for DVT prophylaxis. Working well with the incentive spirometer. Chest x-ray shows no acute pulmonary process. Chest tubes remain in place. White count 10.2. Hemoglobin 7.8. Platelets 84,000. Sodium 130. Potassium 4.3. Bicarb 20. BUN 19. Creatinine 0.84. Glucose 117. The patient is seen today January 03, 2024 in follow-up in the intensive care unit. Postoperative day #3. She is sitting up in a chair at the bedside. Awake and alert in no acute distress. Denies any worsening shortness of breath, cough or congestion. Only pulling approximately 500 mL on her incentive spirometer. Her urine output has been marginal. She has been initiated on a dopamine drip at 3 mcg/kg/min. Normal saline at KVO. She is maintaining O2 saturations in the 90s on 4 L/min per nasal cannula. Chest x-ray shows interval removal of the right CVP catheter and bilateral chest tubes. No pneumothorax. Small to moderate bilateral pleural effusions. White count 10.1. Hemoglobin 7.2. Platelets 104. Sodium 130. Potassium 4.3. Bicarb 17. BUN 34. Creatinine 1.11. Glucose 18 5. She remains on bronchodilators. Heparin for DVT prophylaxis. Objective - Vital Signs Vital signs: Vital Signs Temp 98.7 F 01/03/24 08:00 Pulse 68 01/03/24 09:27 Resp 24 01/03/24 09:00 BP 126/54 01/03/24 09:00 Pulse Ox 94 L 01/03/24 09:06 FiO2 40 12/31/23 18:01 Intake & Output 01/02/24 01/03/24 01/03/24 18:59 06:59 18:59 Intake Total 704.830 50 230 Output Total 212 0 300 Balance 492.830 50 -70 Weight 82.4 kg Intake: IV 200 50 30 0.9% NS @ KVO 170 50 30 pressure bag 30 Intake, IV Titration 24.830 Amount Insulin Regular 100 unit 24.830 In Sodium Chloride 0.9% 100 ml @ Per Protocol IV .Q0M [facility] Rx#:[id number] Oral 480 200 Output: Chest Tube Drainage 120 L and R pleural 70 mediastinal 50 Urine 92 0 300 Other: Voiding Method Indwelling Catheter Bedside Commode Bedside Commode ABP, PAP, CO, CI - Last Documented Arterial Blood Pressure 115/39 Pulmonary Artery Pressure 23/3 Cardiac Output 5.7 Cardiac Index 3.3 - Exam GENERAL EXAM: Awake, alert 78-year-old female, on 4 L nasal cannula, up in a chair, in no apparent distress. HEAD: Normocephalic. EYES: Normal reaction of pupils, equal size. NOSE: Clear with pink turbinates. THROAT: No erythema or exudates. NECK: No masses, no JVD. CHEST: Sternal dressing dry and intact. Heart hugger in place. LUNGS: Equal air entry with few scattered rhonchi. CVS: S1 and S2 normal with no audible murmur, regular rhythm. ABDOMEN: No hepatosplenomegaly, normal bowel sounds, no guarding or rigidity. SPINE: No scoliosis or deformity SKIN: No rashes CENTRAL NERVOUS SYSTEM: No focal deficits, tone is normal in all 4 extremities. EXTREMITIES: SCDs in place, there is no peripheral edema. Peripheral pulses are intact. - Labs CBC & Chem 7: 01/03/24 04:41 01/03/24 04:41 Labs: Abnormal Lab Results - Last 24 Hours (Table) 01/02/24 01/02/24 01/02/24 Range/Units 11:12 12:23 16:31 RBC (3.80-5.40) m/uL Hgb (11.4-16.0) gm/dL Hct (34.0-46.0) % RDW (11.5-15.5) % Plt Count (150-450) k/uL Neutrophils # (1.3-7.7) k/uL Sodium (137-145) mmol/L Carbon Dioxide (22-30) mmol/L BUN (7-17) mg/dL Creatinine (0.52-1.04) mg/dL Glucose (74-99) mg/dL POC Glucose (mg/dL) 152 H 131 H 208 H (70-110) mg/dL Hemoglobin A1c (<=6.0) % Calcium (8.4-10.2) mg/dL Total Bilirubin (0.2-1.3) mg/dL AST (14-36) U/L Total Protein (6.3-8.2) g/dL Albumin (3.5-5.0) g/dL 01/02/24 01/03/24 01/03/24 Range/Units 19:46 00:34 04:41 RBC (3.80-5.40) m/uL Hgb (11.4-16.0) gm/dL Hct (34.0-46.0) % RDW (11.5-15.5) % Plt Count (150-450) k/uL Neutrophils # (1.3-7.7) k/uL Sodium (137-145) mmol/L Carbon Dioxide (22-30) mmol/L BUN 34 H (7-17) mg/dL Creatinine 1.20 H (0.52-1.04) mg/dL Glucose (74-99) mg/dL POC Glucose (mg/dL) 252 H (70-110) mg/dL Hemoglobin A1c 8.8 H (<=6.0) % Calcium (8.4-10.2) mg/dL Total Bilirubin (0.2-1.3) mg/dL AST (14-36) U/L Total Protein (6.3-8.2) g/dL Albumin (3.5-5.0) g/dL 01/03/24 01/03/24 01/03/24 Range/Units 04:41 04:41 06:20 RBC 2.60 L (3.80-5.40) m/uL Hgb 7.2 L (11.4-16.0) gm/dL Hct 22.6 L (34.0-46.0) % RDW 15.8 H (11.5-15.5) % Plt Count 104 L (150-450) k/uL Neutrophils # 8.0 H (1.3-7.7) k/uL Sodium 130 L (137-145) mmol/L Carbon Dioxide 17 L (22-30) mmol/L BUN 34 H (7-17) mg/dL Creatinine 1.11 H (0.52-1.04) mg/dL Glucose 185 H (74-99) mg/dL POC Glucose (mg/dL) 238 H (70-110) mg/dL Hemoglobin A1c (<=6.0) % Calcium 8.0 L (8.4-10.2) mg/dL Total Bilirubin 1.5 H (0.2-1.3) mg/dL AST 71 H (14-36) U/L Total Protein 5.1 L (6.3-8.2) g/dL Albumin 2.6 L (3.5-5.0) g/dL Assessment and Plan Assessment: Triple-vessel coronary artery disease status post off-pump coronary artery bypass grafting x 3. Left internal thoracic artery to the LAD, reverse saphenous vein graft to the obtuse marginal artery, reverse saphenous vein graft to the distal right coronary artery. Left atrial appendage ligation. Postoperative day #3 Postoperative mechanical ventilator management, recovered and on 4 L nasal cannula Acute on chronic anemia, expected outcome of surgery. Hemoglobin 7.2 Thrombocytopenia, expected outcome of surgery, current platelets 104,000 History of hypertension Diabetes mellitus Hyperlipidemia History of gastric esophageal reflux disease History of nonalcoholic liver disease Chronic tobacco dependence History of GI bleed Plan: The patient was seen and evaluated Chest x-ray, labs and medications reviewed Encourage increased use of the incentive spirometer Increase her activity as tolerated We will continue to follow I have personally seen and examined the patient, performed the documentation and the assessment and plan as written. Number of minutes spent on the visit: 10.
[2024-01-03 11:37] LABS: Glucose,Whole Blood 268 mg/dL (70-110)
--- NOTE | 2024-01-03 11:56 | P.PN ---
Subjective Progress Note Date: 01/03/24 This is a 78-year-old female patient who was diagnosed recently with severe symptomatic triple-vessel coronary artery disease with anatomy favoring surgical revascularization. She was admitted to the hospital yesterday and she underwent CABG x 3 with GARCIA to LAD and SVG to first obtuse marginal branch and SVG to RCA. This is postoperation day #1. Currently the patient is extubated. She seems to be stable from the cardiac standpoint of view and not requiring any vasopressors at this point. As [id number] she is hypertensive and currently she is on Cleviprex which is in process of being weaned. Hemoglobin is stable. Electrolytes are within normal limits. Kidney function is stable. Beside that the chest x-ray was reviewed and seems to be somewhat wet. Her urine output has been marginal. I am going to give the patient 20 mg of Lasix IV once. Will continue monitor the kidney function and electrolytes and continue monitor the hemoglobin and chest x-ray as well as well as a urine output. Beside that she is on dual antiplatelet therapy along with intermediate intensity statin. We will consider increasing the statin intensity to hide down the line. The examination is remarkable for stable vital signs with somewhat elevated blood pressure as well as regular rate and rhythm with a distant heart sounds and diminished breathing sounds bilaterally no edema was noted in the lower extremities January 02, 2024 The patient was seen and evaluated this morning. He has been maintaining normal sinus mechanism and she remains hemodynamically stable but urine output has been marginal and I reviewed the chest x-ray which showed small bilateral pleural effusion versus atelectasis. With that being said I am going to get the patient 20 mg of Lasix IV and follow-up with her. Meanwhile continue the current medical regimen. Examination is remarkable for regular rhythm with distant hea rt sounds and diminished breathing sounds bilaterally and no edema was noted January 03, 2024 The patient was seen and evaluated this morning. She remains a stable. The pressure appears to be better overall. BUN and creatinine are slightly worse today. She was started on dopamine and her urine output has been definitely better. Otherwise the chest x-ray seems to be also slightly better but the examination is remarkable for regular rhythm with a distant heart sounds and diminished breathing sounds bilaterally. Assessment Severe triple-vessel CAD as described above Status post CABG as described above Multiple comorbid conditions including hypertension and dyslipidemia and smoking and diabetes Plan Continue the current medical regimen Continue monitor the kidney function and electrolytes and hemoglobin Follow-up with the patient Objective - Vital Signs Vital signs: Vital Signs Temp 98.7 F 01/03/24 08:00 Pulse 68 01/03/24 09:27 Resp 24 01/03/24 09:00 BP 126/54 01/03/24 09:00 Pulse Ox 94 L 01/03/24 09:06 FiO2 40 12/31/23 18:01 Intake & Output 01/02/24 01/03/24 01/03/24 18:59 06:59 18:59 Intake Total 704.830 50 230 Output Total 212 0 300 Balance 492.830 50 -70 Weight 82.4 kg Intake: IV 200 50 30 0.9% NS @ KVO 170 50 30 pressure bag 30 Intake, IV Titration 24.830 Amount Insulin Regular 100 unit 24.830 In Sodium Chloride 0.9% 100 ml @ Per Protocol IV .Q0M [facility] Rx#:[id number] Oral 480 200 Output: Chest Tube Drainage 120 L and R pleural 70 mediastinal 50 Urine 92 0 300 Other: Voiding Method Indwelling Catheter Bedside Commode Bedside Commode ABP, PAP, CO, CI - Last Documented Arterial Blood Pressure 115/39 Pulmonary Artery Pressure 23/3 Cardiac Output 5.7 Cardiac Index 3.3 - Labs CBC & Chem 7: 01/03/24 04:41 01/03/24 04:41 Labs: Abnormal Lab Results - Last 24 Hours (Table) 01/02/24 01/02/24 01/02/24 Range/Units 12:23 16:31 19:46 RBC (3.80-5.40) m/uL Hgb (11.4-16.0) gm/dL Hct (34.0-46.0) % RDW (11.5-15.5) % Plt Count (150-450) k/uL Neutrophils # (1.3-7.7) k/uL Sodium (137-145) mmol/L Carbon Dioxide (22-30) mmol/L BUN (7-17) mg/dL Creatinine (0.52-1.04) mg/dL Glucose (74-99) mg/dL POC Glucose (mg/dL) 131 H 208 H 252 H (70-110) mg/dL Hemoglobin A1c (<=6.0) % Calcium (8.4-10.2) mg/dL Total Bilirubin (0.2-1.3) mg/dL AST (14-36) U/L Total Protein (6.3-8.2) g/dL Albumin (3.5-5.0) g/dL 01/03/24 01/03/24 01/03/24 Range/Units 00:34 04:41 04:41 RBC 2.60 L (3.80-5.40) m/uL Hgb 7.2 L (11.4-16.0) gm/dL Hct 22.6 L (34.0-46.0) % RDW 15.8 H (11.5-15.5) % Plt Count 104 L (150-450) k/uL Neutrophils # 8.0 H (1.3-7.7) k/uL Sodium (137-145) mmol/L Carbon Dioxide (22-30) mmol/L BUN 34 H (7-17) mg/dL Creatinine 1.20 H (0.52-1.04) mg/dL Glucose (74-99) mg/dL POC Glucose (mg/dL) (70-110) mg/dL Hemoglobin A1c 8.8 H (<=6.0) % Calcium (8.4-10.2) mg/dL Total Bilirubin (0.2-1.3) mg/dL AST (14-36) U/L Total Protein (6.3-8.2) g/dL Albumin (3.5-5.0) g/dL 01/03/24 01/03/24 01/03/24 Range/Units 04:41 06:20 11:36 RBC (3.80-5.40) m/uL Hgb (11.4-16.0) gm/dL Hct (34.0-46.0) % RDW (11.5-15.5) % Plt Count (150-450) k/uL Neutrophils # (1.3-7.7) k/uL Sodium 130 L (137-145) mmol/L Carbon Dioxide 17 L (22-30) mmol/L BUN 34 H (7-17) mg/dL Creatinine 1.11 H (0.52-1.04) mg/dL Glucose 185 H (74-99) mg/dL POC Glucose (mg/dL) 238 H 268 H (70-110) mg/dL Hemoglobin A1c (<=6.0) % Calcium 8.0 L (8.4-10.2) mg/dL Total Bilirubin 1.5 H (0.2-1.3) mg/dL AST 71 H (14-36) U/L Total Protein 5.1 L (6.3-8.2) g/dL Albumin 2.6 L (3.5-5.0) g/dL
[2024-01-03] MEDS: INSULIN ASPART (NovoLOG) 100 UNIT/ML VIAL SQ SCH (13:01)
--- NOTE | 2024-01-03 13:09 | P.PN ---
Subjective Progress Note Date: 01/03/24 Subjective Patient is still somnolent lethargic. She is sitting in the chair today. She is more arousable. Per nurse patient did eat her breakfast well. Physical exam General examination - Alert and Oriented 3 in NAD, patient appears chronically debilitated Heart - + S1S2 no murmurs Lungs - Clear to auscultation, heart hugger in place Abdomen soft NT ND +ve BS Extremities - No edema HAND COMPOSITOR - Moving all 4 extremities spontaneously Psych - Calm and cooperative Assessment and plan Diabetes mellitus Type II Patient's blood glucose has been in the 200s range At home she is taking total of 79 units of Lantus nightly and 60 units in the morning. Today I will increase patient's Lantus to 40 units twice daily and will continue with the sliding scale insulin and add an additional short acting insulin 3 units before meals Titrate insulin for better control A1c 9 Triple-vessel coronary artery disease status post bypass grafting x 3 Management per primary cardiothoracic surgery team Continue with aspirin Continue Plavix Continue with atorvastatin Patient started on Coreg Avoid opioids due to somnolence and lethargy Bicytopenia Thrombocytopenia Acute on chronic anemia precipitated by cardiac surgery Platelet count dropped today to 104 Hemoglobin this morning is 7.2 and downtrending. Transfuse for hemoglobin less than 7 Hypertension Continue with Coreg 25 mg twice daily History of nonalcoholic steatohepatitis GERD Stable Protonix 40 mg p.o. daily Hypomagnesemia Resolved Full code DVT prophylaxis on heparin 5000 units subcu 3 times a day Thank you for this consultation we will continue to follow-up Objective - Vital Signs Vital signs: Vital Signs Temp 98.7 F 01/03/24 08:00 Pulse 68 01/03/24 09:27 Resp 24 01/03/24 09:00 BP 126/54 01/03/24 09:00 Pulse Ox 94 L 01/03/24 09:06 FiO2 40 12/31/23 18:01 Intake & Output 01/02/24 01/03/24 01/03/24 18:59 06:59 18:59 Intake Total 704.830 50 230 Output Total 212 0 300 Balance 492.830 50 -70 Weight 82.4 kg Intake: IV 200 50 30 0.9% NS @ KVO 170 50 30 pressure bag 30 Intake, IV Titration 24.830 Amount Insulin Regular 100 unit 24.830 In Sodium Chloride 0.9% 100 ml @ Per Protocol IV .Q0M [facility] Rx#:[id number] Oral 480 200 Output: Chest Tube Drainage 120 L and R pleural 70 mediastinal 50 Urine 92 0 300 Other: Voiding Method Indwelling Catheter Bedside Commode Bedside Commode ABP, PAP, CO, CI - Last Documented Arterial Blood Pressure 115/39 Pulmonary Artery Pressure 23/3 Cardiac Output 5.7 Cardiac Index 3.3 - Labs CBC & Chem 7: 01/03/24 04:41 01/03/24 04:41 Labs: Abnormal Lab Results - Last 24 Hours (Table) 01/02/24 01/02/24 01/03/24 Range/Units 16:31 19:46 00:34 RBC (3.80-5.40) m/uL Hgb (11.4-16.0) gm/dL Hct (34.0-46.0) % RDW (11.5-15.5) % Plt Count (150-450) k/uL Neutrophils # (1.3-7.7) k/uL Sodium (137-145) mmol/L Carbon Dioxide (22-30) mmol/L BUN 34 H (7-17) mg/dL Creatinine 1.20 H (0.52-1.04) mg/dL Glucose (74-99) mg/dL POC Glucose (mg/dL) 208 H 252 H (70-110) mg/dL Hemoglobin A1c (<=6.0) % Calcium (8.4-10.2) mg/dL Total Bilirubin (0.2-1.3) mg/dL AST (14-36) U/L Total Protein (6.3-8.2) g/dL Albumin (3.5-5.0) g/dL 01/03/24 01/03/24 01/03/24 Range/Units 04:41 04:41 04:41 RBC 2.60 L (3.80-5.40) m/uL Hgb 7.2 L (11.4-16.0) gm/dL Hct 22.6 L (34.0-46.0) % RDW 15.8 H (11.5-15.5) % Plt Count 104 L (150-450) k/uL Neutrophils # 8.0 H (1.3-7.7) k/uL Sodium 130 L (137-145) mmol/L Carbon Dioxide 17 L (22-30) mmol/L BUN 34 H (7-17) mg/dL Creatinine 1.11 H (0.52-1.04) mg/dL Glucose 185 H (74-99) mg/dL POC Glucose (mg/dL) (70-110) mg/dL Hemoglobin A1c 8.8 H (<=6.0) % Calcium 8.0 L (8.4-10.2) mg/dL Total Bilirubin 1.5 H (0.2-1.3) mg/dL AST 71 H (14-36) U/L Total Protein 5.1 L (6.3-8.2) g/dL Albumin 2.6 L (3.5-5.0) g/dL 01/03/24 01/03/24 Range/Units 06:20 11:36 RBC (3.80-5.40) m/uL Hgb (11.4-16.0) gm/dL Hct (34.0-46.0) % RDW (11.5-15.5) % Plt Count (150-450) k/uL Neutrophils # (1.3-7.7) k/uL Sodium (137-145) mmol/L Carbon Dioxide (22-30) mmol/L BUN (7-17) mg/dL Creatinine (0.52-1.04) mg/dL Glucose (74-99) mg/dL POC Glucose (mg/dL) 238 H 268 H (70-110) mg/dL Hemoglobin A1c (<=6.0) % Calcium (8.4-10.2) mg/dL Total Bilirubin (0.2-1.3) mg/dL AST (14-36) U/L Total Protein (6.3-8.2) g/dL Albumin (3.5-5.0) g/dL
[2024-01-03 16:23] LABS: Glucose,Whole Blood 310 mg/dL (70-110)
[2024-01-03] MEDS ORDERED: INSULIN DETEMIR (LEVEMIR) 100 UNIT/ML SYR SQ SCH (21:00)
[2024-01-03 21:13] LABS: Glucose,Whole Blood 248 mg/dL (70-110)
[2024-01-03] MEDS: INSULIN DETEMIR (LEVEMIR) 100 UNIT/ML SYR SQ SCH (21:22)
[2024-01-04 06:27] LABS: Glucose,Whole Blood 127 mg/dL (70-110)
[2024-01-04 06:52] LABS: HCT 25.2 % (34.0-46.0); HGB 7.7 gm/dL (11.4-16.0); Hypochromasia Marked; MCH 27.1 pg (25.0-35.0); MCHC 30.5 g/dL (31.0-37.0); MCV 88.8 fL (80.0-100.0); Mean Platelet Volume 9.3; RBC 2.84 m/uL (3.80-5.40); RDW 15.9 % (11.5-15.5); WBC 12.7 k/uL (3.8-10.6)
[2024-01-04] MEDS: INSULIN ASPART (NovoLOG) 100 UNIT/ML VIAL SQ SCH (06:54)
[2024-01-04 07:06] LABS: ALT 17 U/L (4-34); AST 60 U/L (14-36); African American GFR (CKD) 54 (>60 ml/min/1.73 sqM); Alkaline Phosphatase 74 U/L (38-126); Anion Gap 7 mmol/L; Blood Urea Nitrogen 46 mg/dL (7-17); Calcium 8.7 mg/dL (8.4-10.2); Carbon Dioxide 20 mmol/L (22-30); Chloride 106 mmol/L (98-107); Glucose 131 mg/dL (74-99); Magnesium 2.2 mg/dL (1.6-2.3); Non-African American GFR(CKD) 47 (>60 ml/min/1.73 sqM); Potassium 4.3 mmol/L (3.5-5.1); Sodium 133 mmol/L (137-145); Total Bilirubin 1.2 mg/dL (0.2-1.3); Total Protein 5.9 g/dL (6.3-8.2)
[2024-01-04] MEDS ORDERED: carvediloL 3.125 MG TAB PO SCH (07:30)
[2024-01-04 07:32] LABS: Platelet Count 162 k/uL (150-450)
[2024-01-04] MEDS: SYMBICORT 160-4.5 MCG INHALER INHALATION SCH (08:59)
[2024-01-04] MEDS: AMIODARONE 200 MG TAB PO SCH (09:00)
--- NOTE | 2024-01-04 10:02 | P.PN ---
Subjective Progress Note Date: 01/04/24 Principal diagnosis: Multivessel coronary artery disease. 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 POD #4 Off Pump Coronary Artery Bypass Grafting x 3. Left internal thoracic artery (in-situ) to left anterior descending coronary artery, reverse saphenous vein from aorta to obtuse marginal artery #1, reverse saphenous vein from aorta to distal coronary artery. Left Atrial Appendage Ligation with #35mm AtriClip, endoscopic bilateral greater saphenous vein harvest, graft flow measurements using the [employer]-stim flow meter system, intraoperative transesophageal echocardiogram completed by anesthesia. Postoperative acute blood loss anemia and thrombocytopenia, expected given hemodilution and her preoperative anemia and thrombocytopenia. The patient was seen and examined in follow-up today January 04, 2024 at her bedside in the intensive care unit. She is currently sitting up to the bedside chair, is awake, alert, oriented x 3 and is in no acute apparent distress. She denies any complaints of shortness of breath at this time, although is complaining of some chronic back pain currently rating her pain 4-5 out of 10 on the pain scale. She does report that the current pain management regimen is controlling her pain. Oxygen saturations are 94% on 2 L nasal cannula and she is achieving 1000 mL on her incentive spirometry with encouragement. She has been up ambulating in the intensive care unit hallway with standby assistance nursing and therapy staff and tolerating well. She remains on dopamine drip for renal dose at 3 mcg/kg/min, urine output in the last 8 hours has been 275 mL. Bedside telemetry is showing normal sinus rhythm heart rate 66 bpm. Chest x-ray and laboratory results have been reviewed. Objective - Vital Signs Vital signs: Vital Signs Temp 97.8 F 01/04/24 09:00 Pulse 60 01/04/24 09:00 Resp 14 01/04/24 09:00 BP 123/50 01/04/24 09:00 Pulse Ox 95 01/04/24 09:00 FiO2 40 12/31/23 18:01 Intake & Output 01/03/24 01/04/24 01/04/24 18:59 06:59 18:59 Intake Total 1389.28 500.16 Output Total 650 275 Balance 739.28 225.16 Weight 82.4 kg 81.7 kg Intake: IV 189.28 160.16 0.9% NS @ KVO 130 110 Dextrose/Water 1 250ml. 59.28 50.16 bag @ 3 MCG/KG/MIN 4.562 mls/hr IV .Q24H GERTRUDIS with DOPamine DRIP 800 mg Rx#: [id number] Oral 1200 340 Output: Urine 650 275 Other: Voiding Method Bedside Commode Bedside Commode ABP, PAP, CO, CI - Last Documented Arterial Blood Pressure 115/39 Pulmonary Artery Pressure 23/3 Cardiac Output 5.7 Cardiac Index 3.3 - Exam CONSTITUTIONAL: Sitting up to the bedside chair in the intensive care unit, appears comfortable, cooperative, no apparent acute distress. HEENT: Neck is supple, no JVD, no lymphadenopathy. RESPIRATORY: Lungs sounds essentially clear throughout, few scattered expiratory wheezes and faint crackles, diminished to her bilateral bases. Respirations are symmetrical and nonlabored. Currently on 2 L nasal cannula with oxygen saturations 94%. Able to achieve 1000 mL on her incentive spirometry. Strong cough. CARDIOVASCULAR: Regular rhythm and rate. S1 and S2 present, negative for S3, gallop or murmur. Bedside telemetry showing normal sinus rhythm, heart rate 66 bpm. Sternum is stable. Palpable peripheral pulses bilaterally. No calf pain or tenderness noted. Heart hugger in place with patient demonstrating appropriate use. Knee-high BASHIR hose and sequential compression devices in place to his bilateral lower extremities. GASTROINTESTINAL: Abdomen soft, nontender, nondistended. Active bowel sounds present 4 quadrants. Tolerating clear liquid diet. Passing flatus. No guarding or rigidity. GENITOURINARY: Continues to void. Urine output 275 mL in the last 8 hours. INTEGUMENTARY: Skin is warm and dry with no evidence of clubbing or cyanosis. Midline sternal incision clean dry and well approximated, covered with dry intact dressing. Bilateral lower extremity EVH sites well approximated without redness or drainage. NEUROLOGIC: Cranial nerves II through XII intact. No focal deficits. MUSKULOSKELETAL: Able to move all extremities, strength equal bilaterally, generalized weakness. PSYCHIATRIC: Alert and oriented to person place and time, appropriate affect, intact judgment and insight. INVASIVE LINES AND TUBES: Ventricular epicardial pacemaker wires present, currently grounded. - Allied health notes Allied health notes reviewed: nursing - Labs CBC & Chem 7: 01/04/24 06:24 01/04/24 06:24 Labs: Abnormal Lab Results - Last 24 Hours (Table) 01/03/24 01/03/24 01/03/24 Range/Units 04:41 11:36 16:21 WBC (3.8-10.6) k/uL RBC (3.80-5.40) m/uL Hgb (11.4-16.0) gm/dL Hct (34.0-46.0) % MCHC (31.0-37.0) g/dL RDW (11.5-15.5) % Sodium (137-145) mmol/L Carbon Dioxide (22-30) mmol/L BUN (7-17) mg/dL Creatinine (0.52-1.04) mg/dL Glucose (74-99) mg/dL POC Glucose (mg/dL) 268 H 310 H (70-110) mg/dL Hemoglobin A1c 8.8 H (<=6.0) % AST (14-36) U/L Total Protein (6.3-8.2) g/dL Albumin (3.5-5.0) g/dL 01/03/24 01/04/24 01/04/24 Range/Units 21:12 06:24 06:24 WBC 12.7 H (3.8-10.6) k/uL RBC 2.84 L (3.80-5.40) m/uL Hgb 7.7 L (11.4-16.0) gm/dL Hct 25.2 L (34.0-46.0) % MCHC 30.5 L (31.0-37.0) g/dL RDW 15.9 H (11.5-15.5) % Sodium 133 L (137-145) mmol/L Carbon Dioxide 20 L (22-30) mmol/L BUN 46 H (7-17) mg/dL Creatinine 1.14 H (0.52-1.04) mg/dL Glucose 131 H (74-99) mg/dL POC Glucose (mg/dL) 248 H (70-110) mg/dL Hemoglobin A1c (<=6.0) % AST 60 H (14-36) U/L Total Protein 5.9 L (6.3-8.2) g/dL Albumin 3.0 L (3.5-5.0) g/dL 01/04/24 Range/Units 06:26 WBC (3.8-10.6) k/uL RBC (3.80-5.40) m/uL Hgb (11.4-16.0) gm/dL Hct (34.0-46.0) % MCHC (31.0-37.0) g/dL RDW (11.5-15.5) % Sodium (137-145) mmol/L Carbon Dioxide (22-30) mmol/L BUN (7-17) mg/dL Creatinine (0.52-1.04) mg/dL Glucose (74-99) mg/dL POC Glucose (mg/dL) 127 H (70-110) mg/dL Hemoglobin A1c (<=6.0) % AST (14-36) U/L Total Protein (6.3-8.2) g/dL Albumin (3.5-5.0) g/dL - Imaging and Cardiology Chest x-ray: report reviewed, image reviewed Assessment and Plan Assessment: Triple-vessel coronary artery disease, status post three-vessel off-pump coronary artery bypass grafting surgery Hypertension Hyperlipidemia, cholesterol 149, LDL 82 Insulin-dependent diabetes, hemoglobin A1c 9% Nonalcoholic liver cirrhosis, MELD score 8, child Moreau score 6, class A Chronic ongoing tobacco dependence Chronic anemia, with a preoperative hemoglobin of 10.4 Chronic thrombocytopenia, preoperative platelet count of 94 Family history of coronary artery disease Postoperative acute blood loss anemia and thrombocytopenia, expected given hemodilution and her preoperative anemia and thrombocytopenia Plan: Continue to maximize medical therapy with aspirin, statin, Plavix and beta yashira. Coreg decreased to 3.125 mg p.o. twice daily with hold parameters, patient's heart rate has been running 54-66 in the last 8 hours. Wean O2 as tolerated, encourage incentive spirometry use 10 times every hour while awake, bronchodilators per pulmonology. Increase activity, ambulate as tolerated. PT/OT/cardiac rehab following. We will restart amlodipine when blood pressure able to tolerate. Decrease amiodarone to 200 mg p.o. twice daily for atrial fibrillation prophylaxis. No atrial fibrillation has been reported, currently in normal sinus rhythm. Will monitor daily labs and chest x-rays. Electrolyte replacement per protocol. GI/DVT prophylaxis. Insulin management per internal medicine. The patient is an insulin dependent diabetic, with a preoperative hemoglobin A1c 9.0%. Will need tight blood sugar control to promote healing. Pain control per current medication regimen. Shower daily. Decrease dopamine drip at 2 mcg/kg/min. Keep ventricular epicardial pacemaker wires, currently the pacemaker wires are grounded. Have pacemaker generator available at bedside. Continue to monitor and record strict accurate intake and output. Daily weights. Transfer orders will be placed to the third floor cardiac stepdown unit. More recommendations to follow based on patient's clinical course. Time with Patient: Greater than 30
[2024-01-04 11:12] LABS: Glucose,Whole Blood 112 mg/dL (70-110)
--- NOTE | 2024-01-04 11:30 | XR ---
EXAMINATION TYPE: XR chest 2V DATE OF EXAM: 01/04/2024 COMPARISON: 01/03/2024 HISTORY: post op CABG TECHNIQUE: Frontal and lateral views of the chest are obtained. FINDINGS: Scattered senescent parenchymal changes noted. Hyperinflation compatible with COPD. Basilar atelectasis with small effusions. Status post CABG changes. Heart size is stable. Mediastinal structures are stable and grossly unremarkable. No evidence for hilar prominence. Degenerative changes dorsal spine. IMPRESSION: 1. Basilar atelectasis with small effusions. Status post CABG changes.
[2024-01-04] MEDS: FERROUS SULFATE 325 MG TAB PO SCH (12:32)
[2024-01-04] MEDS: ASCORBIC ACID 500 MG TAB PO SCH (12:33)
--- NOTE | 2024-01-04 14:09 | P.PN ---
Subjective Progress Note Date: 01/04/24 Principal diagnosis: POD #4 Off Pump Coronary Artery Bypass Grafting x 3. Left internal thoracic artery (in-situ) to left anterior descending coronary artery, reverse saphenous vein from aorta to obtuse marginal artery #1, reverse saphenous vein from aorta to distal coronary artery. This is a 78-year-old female patient with a known history of chronic tobacco dependence, chronic anemia, nonalcoholic liver cirrhosis, insulin-dependent diabetes mellitus, hyperlipidemia, hypertension and recently found to have triple-vessel coronary artery disease. She was brought in electively today and had undergone an off-pump coronary artery bypass grafting x 3 with a GARCIA to the LAD, reverse saphenous vein to the obtuse marginal artery 1, reverse saphenous grain from to the distal right coronary artery and left atrial appendage ligation. She is seen postoperatively in the intensive care unit. She is intubated on the mechanical ventilator currently on assist-control mode with a rate of 14, tidal volume 350, FiO2 50% and a PEEP of 10. Blood gases revealed a PaO2 of 312, pCO2 45 and a pH of 7.35 and 100% FiO2. She is sedated on propofol at 50 mcg/kg/min. She is on amiodarone drip at 1 mg/min. Insulin drip at 0.5 units an hour. Nitroglycerin drip at 10 mcg/min. Normal saline at 50 MLS per hour. Cardiac output 3.8. Cardiac index 2.2. PA pressures 27/12. CVP 6. A febrile. Hemodynamically stable. Chest x-ray revealed bilateral consolidation and pleural effusion. No sizable pneumothorax. Right left and mediastinal chest tubes in place. White count 7.6. Hemoglobin 8.0. Platelets 85,000. INR 1.5. Sodium 136. Potassium 4.1. Bicarb 24. BUN 9. Creatinine 0.55. Glucose 117. Albumin 2.6. She is continued on bronchodilators. Heparin for DVT prophylaxis. The patient is seen today January 01, 2024 in follow-up in the intensive care unit. She is currently sitting up in a chair. Awake and alert in no acute distress. She is maintaining good O2 saturations in the 90s on 2 L/min per nasal cannula. She remains on normal saline at 50 MLS per hour. Nitroglycerin drip at 5 mcg/min. Cleviprex at 6 mg an hour. Amiodarone at 0.5 mg/min. Insulin drip at 3 units/h. Cardiac output 5.7. Cardiac index 3.3. PA pressure 25/7. CVP 2. Afebrile. Hemodynamically stable. Chest x-ray reveals increased pulmonary venous congestion and increased patchy infiltrate in the left lower lobe. Mediastinal, left and right chest tubes remain in place. She is encouraged regarding the increased use of the incentive spirometer. White count 13.8. Hemoglobin 9.0. Platelets 122. Sodium 132. Potassium 3.8. Bicarb 20. BUN 10. Creatinine 0.57. Glucose 120. She is continued on DuoNeb inhalations. Heparin for DVT prophylaxis. The patient is seen today January 02, 2024 in follow-up in the intensive care unit. Postoperative day #2. She is awake and alert in no acute distress. Sitting up in a chair at the bedside. Feeling a bit better today compared to yesterday. She is maintaining good O2 saturations in the 90s on 2 L/min per nasal cannula. She has normal saline at 30 MLS per hour. Continues on an insulin drip at 2.5 units/h. She is continued on DuoNeb inhalations. Heparin for DVT prophylaxis. Working well with the incentive spirometer. Chest x-ray shows no acute pulmonary process. Chest tubes remain in place. White count 10.2. Hemoglobin 7.8. Platelets 84,000. Sodium 130. Potassium 4.3. Bicarb 20. BUN 19. Creatinine 0.84. Glucose 117. The patient is seen today January 03, 2024 in follow-up in the intensive care unit. Postoperative day #3. She is sitting up in a chair at the bedside. Awake and alert in no acute distress. Denies any worsening shortness of breath, cough or congestion. Only pulling approximately 500 mL on her incentive spirometer. Her urine output has been marginal. She has been initiated on a dopamine drip at 3 mcg/kg/min. Normal saline at KVO. She is maintaining O2 saturations in the 90s on 4 L/min per nasal cannula. Chest x-ray shows interval removal of the right CVP catheter and bilateral chest tubes. No pneumothorax. Small to moderate bilateral pleural effusions. White count 10.1. Hemoglobin 7.2. Platelets 104. Sodium 130. Potassium 4.3. Bicarb 17. BUN 34. Creatinine 1.11. Glucose 185. She remains on bronchodilators. Heparin for DVT prophylaxis. Patient was seen and evaluated on 01/04/2024, she is now postoperative day #4. Patient remains on 4 L nasal cannula, she is getting a bit stronger, remains generally weak, about 1000 cc on her incentive spirometry, pain is fairly under control. O2 saturation 94% on 4 L nasal cannula. Remains on dopamine at renal perfusion dose at 3 mcg/kg/min her urine output is excellent over the last 8 hours. Chest x-ray showed mostly atelectasis at the bases and smal left-sided pleural effusion with atelectasis WBC count is 12.7 hemoglobin 7.7 electrolytes are normal BUN is 46 creatinine 1.14 Objective - Vital Signs Vital signs: Vital Signs Temp 97.8 F 01/04/24 09:00 Pulse 61 01/04/24 13:00 Resp 13 01/04/24 13:00 BP 104/40 01/04/24 13:00 Pulse Ox 94 L 01/04/24 12:00 FiO2 40 12/31/23 18:01 Intake & Output 01/03/24 01/04/24 01/04/24 18:59 06:59 18:59 Intake Total 1389.28 500.16 60 Output Total 650 275 Balance 739.28 225.16 60 Weight 82.4 kg 81.7 kg Intake: IV 189.28 160.16 60 0.9% NS @ KVO 130 110 60 Dextrose/Water 1 250ml. 59.28 50.16 bag @ 2 MCG/KG/MIN 3.041 mls/hr IV .Q24H GERTRUDIS with DOPamine DRIP 800 mg Rx#: [id number] Oral 1200 340 Output: Urine 650 275 Other: Voiding Method Bedside Commode Bedside Commode Bedside Commode # Voids 1 ABP, PAP, CO, CI - Last Documented Arterial Blood Pressure 115/39 Pulmonary Artery Pressure 23/3 Cardiac Output 5.7 Cardiac Index 3.3 - Exam General: Revealed a 78-year-old female in no distress HEENT: Neck is supple, no JVD, no lymphadenopathy. RESPIRATORY: Diminished breath sounds at the bases no rhonchi no wheezes CARDIOVASCULAR: Regular rhythm and rate. S1 and S2 present, negative for S3, gallop or murmur. Abdomen: Soft nontender no megaly no rebound no guarding INTEGUMENTARY: Skin is warm and dry with no evidence of clubbing or cyanosis. NEUROLOGIC: Alert and oriented x 3 no gross focal deficit MUSKULOSKELETAL: No clubbing edema or cyanosis PSYCHIATRIC: Normal mood affect and no mental status examination - Labs CBC & Chem 7: 01/04/24 06:24 01/04/24 06:24 Labs: Abnormal Lab Results - Last 24 Hours (Table) 01/03/24 01/03/24 01/04/24 Range/Units 16:21 21:12 06:24 WBC 12.7 H (3.8-10.6) k/uL RBC 2.84 L (3.80-5.40) m/uL Hgb 7.7 L (11.4-16.0) gm/dL Hct 25.2 L (34.0-46.0) % MCHC 30.5 L (31.0-37.0) g/dL RDW 15.9 H (11.5-15.5) % Sodium (137-145) mmol/L Carbon Dioxide (22-30) mmol/L BUN (7-17) mg/dL Creatinine (0.52-1.04) mg/dL Glucose (74-99) mg/dL POC Glucose (mg/dL) 310 H 248 H (70-110) mg/dL AST (14-36) U/L Total Protein (6.3-8.2) g/dL Albumin (3.5-5.0) g/dL 01/04/24 01/04/24 01/04/24 Range/Units 06:24 06:26 11:11 WBC (3.8-10.6) k/uL RBC (3.80-5.40) m/uL Hgb (11.4-16.0) gm/dL Hct (34.0-46.0) % MCHC (31.0-37.0) g/dL RDW (11.5-15.5) % Sodium 133 L (137-145) mmol/L Carbon Dioxide 20 L (22-30) mmol/L BUN 46 H (7-17) mg/dL Creatinine 1.14 H (0.52-1.04) mg/dL Glucose 131 H (74-99) mg/dL POC Glucose (mg/dL) 127 H 112 H (70-110) mg/dL AST 60 H (14-36) U/L Total Protein 5.9 L (6.3-8.2) g/dL Albumin 3.0 L (3.5-5.0) g/dL Assessment and Plan Assessment: Impression: Triple-vessel coronary artery disease, status post CABG postoperative day #4 Benign essential hypertension Dyslipidemia 2 Insulin-dependent diabetes, hemoglobin A1c 9% Nonalcoholic liver cirrhosis Chronic ongoing tobacco dependence Chronic anemia, with a preoperative hemoglobin of 10.4 Chronic thrombocytopenia Family history of coronary artery disease Postoperative atelectasis, expected Recommendation: Continue maximal medical therapy including Plavix beta-yashira aspirin and statins Increase activity as tolerated Continue to encourage incentive spirometry Continue oral amiodarone Continue GI and DVT prophylaxis Continue insulin as per admitting physician Ambulate Continue dopamine/renal perfusion dose Continue daily labs and daily x-rays of the chest Will continue to follow Time with Patient: Less than 30
--- NOTE | 2024-01-04 14:10 | P.PN ---
Subjective Progress Note Date: 01/04/24 Subjective Patient seen this morning. She was sitting up in the chair. Patient did have a large chocolate chip cookie at bedside. I did advise the patient that because of her diabetes she should not eat the entire cookie all at once. I did tell the patient that controlling her blood glucose levels is important for her to help with the healing from the surgery. 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 I increased patient's Lantus to 50 units twice daily and will continue with the sliding scale insulin and increase short acting insulin prior to meals to 8 units Titrate insulin for better control A1c 9 Triple-vessel coronary artery disease status post bypass grafting x 3 Management per primary cardiothoracic surgery team Continue with aspirin Continue Plavix Continue with atorvastatin Continue with Coreg Avoid opioids due to somnolence and lethargy Patient also on low-dose dopamine Bicytopenia Thrombocytopenia Acute on chronic anemia precipitated by cardiac surgery Platelets this morning is 162. Improving Hemoglobin this morning is 7.7. Improving Transfuse for hemoglobin less than 7 Hypertension New with Coreg History of nonalcoholic steatohepatitis GERD Stable Protonix 40 mg p.o. daily Hypomagnesemia Resolved Full code DVT prophylaxis on heparin 5000 units subcu 3 times a day Thank you for this consultation we will continue to follow-up Objective - Vital Signs Vital signs: Vital Signs Temp 97.8 F 01/04/24 09:00 Pulse 61 01/04/24 13:00 Resp 13 01/04/24 13:00 BP 104/40 01/04/24 13:00 Pulse Ox 94 L 01/04/24 12:00 FiO2 40 12/31/23 18:01 Intake & Output 01/03/24 01/04/24 01/04/24 18:59 06:59 18:59 Intake Total 1389.28 500.16 60 Output Total 650 275 Balance 739.28 225.16 60 Weight 82.4 kg 81.7 kg Intake: IV 189.28 160.16 60 0.9% NS @ KVO 130 110 60 Dextrose/Water 1 250ml. 59.28 50.16 bag @ 2 MCG/KG/MIN 3.041 mls/hr IV .Q24H GERTRUDIS with DOPamine DRIP 800 mg Rx#: [id number] Oral 1200 340 Output: Urine 650 275 Other: Voiding Method Bedside Commode Bedside Commode Bedside Commode # Voids 1 ABP, PAP, CO, CI - Last Documented Arterial Blood Pressure 115/39 Pulmonary Artery Pressure 23/3 Cardiac Output 5.7 Cardiac Index 3.3 - Labs CBC & Chem 7: 01/04/24 06:24 01/04/24 06:24 Labs: Abnormal Lab Results - Last 24 Hours (Table) 01/03/24 01/03/24 01/04/24 Range/Units 16:21 21:12 06:24 WBC 12.7 H (3.8-10.6) k/uL RBC 2.84 L (3.80-5.40) m/uL Hgb 7.7 L (11.4-16.0) gm/dL Hct 25.2 L (34.0-46.0) % MCHC 30.5 L (31.0-37.0) g/dL RDW 15.9 H (11.5-15.5) % Sodium (137-145) mmol/L Carbon Dioxide (22-30) mmol/L BUN (7-17) mg/dL Creatinine (0.52-1.04) mg/dL Glucose (74-99) mg/dL POC Glucose (mg/dL) 310 H 248 H (70-110) mg/dL AST (14-36) U/L Total Protein (6.3-8.2) g/dL Albumin (3.5-5.0) g/dL 01/04/24 01/04/24 01/04/24 Range/Units 06:24 06:26 11:11 WBC (3.8-10.6) k/uL RBC (3.80-5.40) m/uL Hgb (11.4-16.0) gm/dL Hct (34.0-46.0) % MCHC (31.0-37.0) g/dL RDW (11.5-15.5) % Sodium 133 L (137-145) mmol/L Carbon Dioxide 20 L (22-30) mmol/L BUN 46 H (7-17) mg/dL Creatinine 1.14 H (0.52-1.04) mg/dL Glucose 131 H (74-99) mg/dL POC Glucose (mg/dL) 127 H 112 H (70-110) mg/dL AST 60 H (14-36) U/L Total Protein 5.9 L (6.3-8.2) g/dL Albumin 3.0 L (3.5-5.0) g/dL
[2024-01-04] MEDS: PANTOPRAZOLE 40 MG/10 ML VIAL IVP SCH (15:14)
[2024-01-04] MEDS: carvediloL 12.5 MG TAB PO SCH (15:15)
[2024-01-04 16:35] LABS: Glucose,Whole Blood 91 mg/dL (70-110)
[2024-01-04] MEDS: carvediloL 3.125 MG TAB PO SCH (16:42)
[2024-01-04] MEDS: MAGNESIUM HYDROXIDE 2,400 MG/30 ML CUP PO PRN (17:15)
[2024-01-04] MEDS: ESOMEPRAZOLE MAGNESIUM 40 MG PO SCH (19:58)
[2024-01-04 20:17] LABS: Glucose,Whole Blood 57 mg/dL (70-110)
[2024-01-04 20:17] LABS: Glucose,Whole Blood 52 mg/dL (70-110)
[2024-01-04 20:36] LABS: Glucose,Whole Blood 59 mg/dL (70-110)
[2024-01-04 20:56] LABS: Glucose,Whole Blood 90 mg/dL (70-110)
[2024-01-05 05:58] LABS: Glucose,Whole Blood 118 mg/dL (70-110)
[2024-01-05 07:43] LABS: Anisocytosis Slight; HCT 21.7 % (34.0-46.0); Hypochromasia Marked; MCH 27.3 pg (25.0-35.0); MCHC 30.8 g/dL (31.0-37.0); MCV 88.6 fL (80.0-100.0); Mean Platelet Volume 9.7; Platelet Count 125 k/uL (150-450); RBC 2.44 m/uL (3.80-5.40); RDW 16.6 % (11.5-15.5); WBC 8.2 k/uL (3.8-10.6)
[2024-01-05 07:48] LABS: HGB 6.7 gm/dL (11.4-16.0)
--- NOTE | 2024-01-05 08:11 | XR ---
EXAMINATION TYPE: XR chest 2V DATE OF EXAM: 01/05/2024 COMPARISON: 01/04/2024 HISTORY: Status post CABG TECHNIQUE: Frontal and lateral views of the chest are obtained. FINDINGS: Scattered senescent parenchymal changes noted. Hyperinflation compatible with COPD. No persistent pulmonary venous congestion with basilar small effusions and linear atelectasis of atel ectasis postoperative changes of CABG. No pneumothorax present. Heart size is stable. Mediastinal structures are stable and grossly unremarkable. No evidence for hilar prominence. Degenerative changes dorsal spine. IMPRESSION: 1. Stable postoperative changes of CABG.
[2024-01-05 08:33] LABS: African American GFR (CKD) 61 (>60 ml/min/1.73 sqM); Anion Gap 6 mmol/L; Blood Urea Nitrogen 51 mg/dL (7-17); Calcium 8.2 mg/dL (8.4-10.2); Carbon Dioxide 21 mmol/L (22-30); Chloride 107 mmol/L (98-107); Glucose 100 mg/dL (74-99); Magnesium 2.2 mg/dL (1.6-2.3); Non-African American GFR(CKD) 53 (>60 ml/min/1.73 sqM); Potassium 4.7 mmol/L (3.5-5.1); Sodium 134 mmol/L (137-145)
--- NOTE | 2024-01-05 08:56 | P.PN ---
Subjective Progress Note Date: 01/05/24 Principal diagnosis: Multivessel coronary artery disease. 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 POD #5 Off Pump Coronary Artery Bypass Grafting x 3. Left internal thoracic artery (in-situ) to left anterior descending coronary artery, reverse saphenous vein from aorta to obtuse marginal artery #1, reverse saphenous vein from aorta to distal coronary artery. Left Atrial Appendage Ligation with #35mm AtriClip, endoscopic bilateral greater saphenous vein harvest, graft flow measurements using the Metago-stim flow meter system, intraoperative transesophageal echocardiogram completed by anesthesia. Postoperative acute blood loss anemia and thrombocytopenia, expected given hemodilution and her preoperative anemia and thrombocytopenia. The patient was seen and examined in follow-up today December 29, 2023 at her bedside on the third floor cardiac stepdown unit. She is currently sitting up to the bedside chair, is awake, alert, oriented x 3 and is in no acute apparent distress. She denies any complaints of pain or shortness of breath at this time. Oxygen saturations are 94% on room air and she is achieving 1000 mL on her incentive spirometry with encouragement. She remains hemodynamically stable and is currently on no inotropic or pressor support. Remote telemetry is showing normal sinus rhythm heart rate 69 bpm. The patient reports she has been up ambulating in the cardiac stepdown unit hallway with standby assistance or nursing staff and tolerating well. First postoperative shower yesterday, tolerated well. Ventricular epicardial pacemaker wires remain in place and are currently grounded. The patient reports that her bowels moved this morning. Laboratory and chest x-ray results reviewed. Objective - Vital Signs Vital signs: Vital Signs Temp 97.9 F 01/05/24 04:20 Pulse 60 01/05/24 04:20 Resp 20 01/05/24 04:20 BP 107/72 01/05/24 04:20 Pulse Ox 96 01/05/24 04:20 FiO2 40 12/31/23 18:01 Intake & Output 01/04/24 01/05/24 01/05/24 18:59 06:59 18:59 Intake Total 198 40 118 Output Total 10 Balance 198 30 118 Weight 82.5 kg Intake: IV 80 40 0.9% NS @ KVO 80 Invasive Line 5 20 Invasive Line 6 20 Oral 118 118 Output: Urine 10 Other: Voiding Method Bedside Commode Toilet # Voids 1 1 # Bowel Movements 1 ABP, PAP, CO, CI - Last Documented Arterial Blood Pressure 115/39 Pulmonary Artery Pressure 23/3 Cardiac Output 5.7 Cardiac Index 3.3 - Exam CONSTITUTIONAL: Sitting up to the bedside chair on the third floor cardiac stepdown unit, appears comfortable, cooperative, no apparent acute distress. HEENT: Neck is supple, no JVD, no lymphadenopathy. RESPIRATORY: Lungs sounds essentially clear throughout, diminished to her bilateral bases. Respirations are symmetrical and nonlabored. Currently on room air with oxygen saturations 94%. Able to achieve 1000 mL on her incentive spirometry. Strong cough. CARDIOVASCULAR: Regular rhythm and rate. S1 and S2 present, negative for S3, gallop or murmur. Remote telemetry showing normal sinus rhythm, heart rate 69 bpm. Sternum is stable. Palpable peripheral pulses bilaterally. No calf pain or tenderness noted. Heart hugger in place with patient demonstrating appropriate use. Knee-high BASHIR hose and sequential compression devices in place to his bilateral lower extremities. GASTROINTESTINAL: Abdomen soft, nontender, nondistended. Active bowel sounds present 4 quadrants. Tolerating diet. Passing flatus. No guarding or rigidity. Bowel movement this a.m. GENITOURINARY: Continues to void. INTEGUMENTARY: Skin is warm and dry with no evidence of clubbing or cyanosis. Midline sternal incision clean dry and well approximated, covered with dry intact dressing. Bilateral lower extremity EVH sites well approximated without redness or drainage. Ecchymosis to her bilateral upper hamstring area. NEUROLOGIC: Cranial nerves II through XII intact. No focal deficits. MUSKULOSKELETAL: Able to move all extremities, strength equal bilaterally, generalized weakness. PSYCHIATRIC: Alert and oriented to person place and time, appropriate affect, intact judgment and insight. INVASIVE LINES AND TUBES: Ventricular epicardial pacemaker wires present, currently grounded. - Allied health notes Allied health notes reviewed: nursing - Labs CBC & Chem 7: 01/05/24 06:11 01/05/24 06:11 Labs: Abnormal Lab Results - Last 24 Hours (Table) 01/04/24 01/04/24 01/04/24 Range/Units 11:11 20:14 20:15 RBC (3.80-5.40) m/uL Hgb (11.4-16.0) gm/dL Hct (34.0-46.0) % MCHC (31.0-37.0) g/dL RDW (11.5-15.5) % Plt Count (150-450) k/uL Sodium (137-145) mmol/L Carbon Dioxide (22-30) mmol/L BUN (7-17) mg/dL Glucose (74-99) mg/dL POC Glucose (mg/dL) 112 H 57 L 52 L (70-110) mg/dL Calcium (8.4-10.2) mg/dL 01/04/24 01/05/24 01/05/24 Range/Units 20:35 05:56 06:11 RBC 2.44 L (3.80-5.40) m/uL Hgb 6.7 L* (11.4-16.0) gm/dL Hct 21.7 L (34.0-46.0) % MCHC 30.8 L (31.0-37.0) g/dL RDW 16.6 H (11.5-15.5) % Plt Count 125 L (150-450) k/uL Sodium (137-145) mmol/L Carbon Dioxide (22-30) mmol/L BUN (7-17) mg/dL Glucose (74-99) mg/dL POC Glucose (mg/dL) 59 L 118 H (70-110) mg/dL Calcium (8.4-10.2) mg/dL 01/05/24 Range/Units 06:11 RBC (3.80-5.40) m/uL Hgb (11.4-16.0) gm/dL Hct (34.0-46.0) % MCHC (31.0-37.0) g/dL RDW (11.5-15.5) % Plt Count (150-450) k/uL Sodium 134 L (137-145) mmol/L Carbon Dioxide 21 L (22-30) mmol/L BUN 51 H (7-17) mg/dL Glucose 100 H (74-99) mg/dL POC Glucose (mg/dL) (70-110) mg/dL Calcium 8.2 L (8.4-10.2) mg/dL - Imaging and Cardiology Chest x-ray: report reviewed, image reviewed Assessment and Plan Assessment: Triple-vessel coronary artery disease, status post three-vessel off-pump coronary artery bypass grafting surgery Hypertension Hyperlipidemia, cholesterol 149, LDL 82 Insulin-dependent diabetes, hemoglobin A1c 9% Nonalcoholic liver cirrhosis, MELD score 8, child Moreau score 6, class A Chronic ongoing tobacco dependence Chronic anemia, with a preoperative hemoglobin of 10.4 Chronic thrombocytopenia, preoperative platelet count of 94 Family history of coronary artery disease Postoperative acute blood loss anemia and thrombocytopenia, expected given hemodilution and her preoperative anemia and thrombocytopenia Plan: Encourage incentive spirometry use 10 times every hour while awake, bronchodilators per pulmonology. Increase activity, ambulate as tolerated. PT/OT/cardiac rehab following. We will restart amlodipine when blood pressure able to tolerate. Continue amiodarone to 200 mg p.o. twice daily for atrial fibrillation prophylaxis. No atrial fibrillation has been reported, currently in normal sinus rhythm. Will monitor daily labs and chest x-rays. Electrolyte replacement per protocol. GI/DVT prophylaxis. Insulin management per internal medicine. The patient is an insulin dependent diabetic, with a preoperative hemoglobin A1c 9.0%. Will need tight blood sugar control to promote healing. Pain control per current medication regimen. Shower daily. Discontinue dopamine drip. Hemoglobin 6.7 today, we will transfuse for 1 unit of packed red blood cells and 20 of Lasix IV x 1 to follow transfusion. We will remove her ventricular epicardial pacemaker wires today, bedrest for 1 hour post pacemaker wire removal. Continue to monitor and record strict accurate intake and output. Daily weights. Discharge planning is in place, anticipate discharge to inpatient rehab at [facility] within the next 24 to 48 hours. More recommendations to follow based on patient's clinical course. Time with Patient: Less than 30
--- NOTE | 2024-01-05 10:39 | P.PN ---
Subjective Progress Note Date: 01/05/24 Subjective: Patient seen and examined at bedside. Overnight patient was hypoglycemic. Still feeling weak. Denies any significant chest pain, shortness of breath, abdominal pain. Tolerating oral intake. Pertinent positives and negatives as discussed above, a complete review of systems was performed and all other systems are negative. Vitals Signs Reviewed. General: Nontoxic, no distress, appears at stated age, obese Derm: Warm, dry, chest dressing clean, dry, intact Head: Atraumatic, normocephalic, symmetric Eyes: EOMI, no lid lag, anicteric sclera Mouth: No lip lesion, mucus membranes moist Cardiovascular: S1S2 reg, no murmur Lungs: CTA bilateral, no rhonchi, no rales, no accessory muscle use Abdominal: Soft, nontender to palpation, no guarding, no appreciable organomegaly Ext: No gross muscle atrophy, no edema, no contractures Neuro: CN II-XI grossly intact, no focal neuro deficits Psych: Alert, oriented, appropriate affect Data Reviewed Today: Pertinent Labs:WBC 8.2, hemoglobin 6.7, Platelet 125, sodium 134, creatinine 1.03, magnesium 2.2, blood sugars range between 52-1 18 Imaging: Chest x-ray independently interpreted, shows postoperative changes, bilateral pleural effusion, more prominent on the left, slightly improved from yesterday. 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 Acute blood loss anemia, anticipated outcome of surgery Hyponatremia, resolved Hypertension Dyslipidemia GERD LOPEZ cirrhosis Nicotine dependence Restless leg syndrome Neuropathy -Due to hypoglycemia, and still poor oral intake, patient did have hypoglycemia overnight -Insulin regimen changed to Levemir 50 units daily, discontinued night Levemir for now -Continue insulin aspart 8 units 3 times daily -Continue insulin aspart sliding scale ACHS, monitor for hypoglycemia -Cardiothoracic surgery note reviewed, continue amiodarone 200 mg twice daily, transfusing 1 unit of PRBCs followed by 20 mg of IV Lasix, anticipate inpatient rehab in 24 to 48 hours -Cardiology and pulmonology following, on bronchodilators -Continue aspirin 325 daily, atorvastatin 40 mg daily, carvedilol 3.125 twice da renato, Plavix 75 daily -Continue gabapentin 300 mg nightly, pramipexole 1 mg nightly, esomeprazole 40mg daily, Flexeril 10 nightly Subcu heparin for DVT prophylaxis Thank you for allowing us to participate in the care of this pleasant patient. Do not hesitate to contact us with questions. Someone can be reached from the [facility] hospitalist group all hours of the day at [phone] or via perfect serve. Objective - Vital Signs Vital signs: Vital Signs Temp 97.8 F 01/05/24 08:00 Pulse 80 01/05/24 09:33 Resp 18 01/05/24 08:00 BP 143/67 01/05/24 08:00 Pulse Ox 96 01/05/24 09:23 FiO2 40 12/31/23 18:01 Intake & Output 01/04/24 01/05/24 01/05/24 18:59 06:59 18:59 Intake Total 198 40 128 Output Total 10 Balance 198 30 128 Weight 82.5 kg Intake: IV 80 40 10 0.9% NS @ KVO 80 Invasive Line 5 20 Invasive Line 6 20 10 Oral 118 118 Output: Urine 10 Other: Voiding Method Bedside Commode Toilet # Voids 1 1 # Bowel Movements 1 ABP, PAP, CO, CI - Last Documented Arterial Blood Pressure 115/39 Pulmonary Artery Pressure 23/3 Cardiac Output 5.7 Cardiac Index 3.3 - Labs CBC & Chem 7: 01/05/24 06:11 01/05/24 06:11 Labs: Abnormal Lab Results - Last 24 Hours (Table) 01/04/24 01/04/24 01/04/24 Range/Units 11:11 20:14 20:15 RBC (3.80-5.40) m/uL Hgb (11.4-16.0) gm/dL Hct (34.0-46.0) % MCHC (31.0-37.0) g/dL RDW (11.5-15.5) % Plt Count (150-450) k/uL Sodium (137-145) mmol/L Carbon Dioxide (22-30) mmol/L BUN (7-17) mg/dL Glucose (74-99) mg/dL POC Glucose (mg/dL) 112 H 57 L 52 L (70-110) mg/dL Calcium (8.4-10.2) mg/dL Crossmatch 01/04/24 01/05/24 01/05/24 Range/Units 20:35 05:56 06:11 RBC 2.44 L (3.80-5.40) m/uL Hgb 6.7 L* (11.4-16.0) gm/dL Hct 21.7 L (34.0-46.0) % MCHC 30.8 L (31.0-37.0) g/dL RDW 16.6 H (11.5-15.5) % Plt Count 125 L (150-450) k/uL Sodium (137-145) mmol/L Carbon Dioxide (22-30) mmol/L BUN (7-17) mg/dL Glucose (74-99) mg/dL POC Glucose (mg/dL) 59 L 118 H (70-110) mg/dL Calcium (8.4-10.2) mg/dL Crossmatch 01/05/24 01/05/24 Range/Units 06:11 09:22 RBC (3.80-5.40) m/uL Hgb (11.4-16.0) gm/dL Hct (34.0-46.0) % MCHC (31.0-37.0) g/dL RDW (11.5-15.5) % Plt Count (150-450) k/uL Sodium 134 L (137-145) mmol/L Carbon Dioxide 21 L (22-30) mmol/L BUN 51 H (7-17) mg/dL Glucose 100 H (74-99) mg/dL POC Glucose (mg/dL) (70-110) mg/dL Calcium 8.2 L (8.4-10.2) mg/dL Crossmatch See Detail
[2024-01-05 11:36] LABS: Glucose,Whole Blood 180 mg/dL (70-110)
[2024-01-05] MEDS: INSULIN DETEMIR (LEVEMIR) 100 UNIT/ML SYR SQ SCH (11:38)
[2024-01-05 12:47] VITALS: BMI 35.5
--- NOTE | 2024-01-05 14:26 | P.PN ---
Subjective Progress Note Date: 01/05/24 Principal diagnosis: POD #5 off Pump Coronary Artery Bypass Grafting x 3. Left internal thoracic artery (in-situ) to left anterior descending coronary artery, reverse saphenous vein from aorta to obtuse marginal artery #1, reverse saphenous vein from aorta to distal coronary artery. This is a 78-year-old female patient with a known history of chronic tobacco dependence, chronic anemia, nonalcoholic liver cirrhosis, insulin-dependent diabetes mellitus, hyperlipidemia, hypertension and recently found to have triple-vessel coronary artery disease. She was brought in electively today and had undergone an off-pump coronary artery bypass grafting x 3 with a GARCIA to the LAD, reverse saphenous vein to the obtuse marginal artery 1, reverse saphenous grain from to the distal right coronary artery and left atrial appendage ligation. She is seen postoperatively in the intensive care unit. She is intubated on the mechanical ventilator currently on assist-control mode with a rate of 14, tidal volume 350, FiO2 50% and a PEEP of 10. Blood gases revealed a PaO2 of 312, pCO2 45 and a pH of 7.35 and 100% FiO2. She is sedated on propofol at 50 mcg/kg/min. She is on amiodarone drip at 1 mg/min. Insulin drip at 0.5 units an hour. Nitroglycerin drip at 10 mcg/min. Normal saline at 50 MLS per hour. Cardiac output 3.8. Cardiac index 2.2. PA pressures 27/12. CVP 6. A febrile. Hemodynamically stable. Chest x-ray revealed bilateral consolidation and pleural effusion. No sizable pneumothorax. Right left and mediastinal chest tubes in place. White count 7.6. Hemoglobin 8.0. Platelets 85,000. INR 1.5. Sodium 136. Potassium 4.1. Bicarb 24. BUN 9. Creatinine 0.55. Glucose 117. Albumin 2.6. She is continued on bronchodilators. Heparin for DVT prophylaxis. The patient is seen today January 01, 2024 in follow-up in the intensive care unit. She is currently sitting up in a chair. Awake and alert in no acute distress. She is maintaining good O2 saturations in the 90s on 2 L/min per nasal cannula. She remains on normal saline at 50 MLS per hour. Nitroglycerin drip at 5 mcg/min. Cleviprex at 6 mg an hour. Amiodarone at 0.5 mg/min. Insulin drip at 3 units/h. Cardiac output 5.7. Cardiac index 3.3. PA pressure 25/7. CVP 2. Afebrile. Hemodynamically stable. Chest x-ray reveals increased pulmonary venous congestion and increased patchy infiltrate in the left lower lobe. Mediastinal, left and right chest tubes remain in place. She is encouraged regarding the increased use of the incentive spirometer. White count 13.8. Hemoglobin 9.0. Platelets 122. Sodium 132. Potassium 3.8. Bicarb 20. BUN 10. Creatinine 0.57. Glucose 120. She is continued on DuoNeb inhalations. Heparin for DVT prophylaxis. The patient is seen today January 02, 2024 in follow-up in the intensive care unit. Postoperative day #2. She is awake and alert in no acute distress. Sitting up in a chair at the bedside. Feeling a bit better today compared to yesterday. She is maintaining good O2 saturations in the 90s on 2 L/min per nasal cannula. She has normal saline at 30 MLS per hour. Continues on an insulin drip at 2.5 units/h. She is continued on DuoNeb inhalations. Heparin for DVT prophylaxis. Working well with the incentive spirometer. Chest x-ray shows no acute pulmonary process. Chest tubes remain in place. White count 10.2. Hemoglobin 7.8. Platelets 84,000. Sodium 130. Potassium 4.3. Bicarb 20. BUN 19. Creatinine 0.84. Glucose 117. The patient is seen today January 03, 2024 in follow-up in the intensive care unit. Postoperative day #3. She is sitting up in a chair at the bedside. Awake and alert in no acute distress. Denies any worsening shortness of breath, cough or congestion. Only pulling approximately 500 mL on her incentive spirometer. Her urine output has been marginal. She has been initiated on a dopamine drip at 3 mcg/kg/min. Normal saline at KVO. She is maintaining O2 saturations in the 90s on 4 L/min per nasal cannula. Chest x-ray shows interval removal of the right CVP catheter and bilateral chest tubes. No pneumothorax. Small to moderate bilateral pleural effusions. White count 10.1. Hemoglobin 7.2. Platelets 104. Sodium 130. Potassium 4.3. Bicarb 17. BUN 34. Creatinine 1.11. Glucose 185. She remains on bronchodilators. Heparin for DVT prophylaxis. Patient was seen and evaluated on 01/04/2024, she is now postoperative day #4. Patient remains on 4 L nasal cannula, she is getting a bit stronger, remains generally weak, about 1000 cc on her incentive spirometry, pain is fairly under control. O2 saturation 94% on 4 L nasal cannula. Remains on dopamine at renal perfusion dose at 3 mcg/kg/min her urine output is excellent over the last 8 hours. Chest x-ray showed mostly atelectasis at the bases and smal left-sided pleural effusion with atelectasis WBC count is 12.7 hemoglobin 7.7 electrolytes are normal BUN is 46 creatinine 1.14 Evaluated today on 01/05/24, patient is now postoperative day #5. Patient is now on room air, does not seem to be in any distress, O2 saturation 94%, doing well with incentive spirometry, she is in sinus rhythm, has been ambulating in the cardiac stepdown unit hallway chest x-ray continues to show small pleural effusions and atelectasis. Hemoglobin today is 6.7 WBC count is 8.2 electrolytes are normal BUN 61 creatinine 1.03 Objective - Vital Signs Vital signs: Vital Signs Temp 98.0 F 01/05/24 11:35 Pulse 78 01/05/24 12:04 Resp 18 01/05/24 11:35 BP 114/55 01/05/24 11:35 Pulse Ox 96 01/05/24 09:23 FiO2 40 12/31/23 18:01 Intake & Output 01/04/24 01/05/24 01/05/24 18:59 06:59 18:59 Intake Total 198 40 128 Output Total 10 Balance 198 30 128 Weight 82.5 kg 82.5 kg Intake: IV 80 40 10 0.9% NS @ KVO 80 Invasive Line 5 20 Invasive Line 6 20 10 Oral 118 118 Blood Product 0 Unit 0 Output: Urine 10 Other: Voiding Method Bedside Commode Toilet Toilet Diaper Incontinent # Voids 1 1 # Bowel Movements 1 ABP, PAP, CO, CI - Last Documented Arterial Blood Pressure 115/39 Pulmonary Artery Pressure 23/3 Cardiac Output 5.7 Cardiac Index 3.3 - Exam General: Revealed a 78-year-old female in no distress HEENT: Neck is supple, no JVD, no lymphadenopathy. RESPIRATORY: Diminished breath sounds at the bases no rhonchi no wheezes CARDIOVASCULAR: Regular rhythm and rate. S1 and S2 present, negative for S3, gallop or murmur. Abdomen: Soft nontender no megaly no rebound no guarding INTEGUMENTARY: Skin is warm and dry with no evidence of clubbing or cyanosis. NEUROLOGIC: Alert and oriented x 3 no gross focal deficit MUSKULOSKELETAL: No clubbing edema or cyanosis PSYCHIATRIC: Normal mood affect and no mental status examination - Labs CBC & Chem 7: 01/05/24 06:11 01/05/24 06:11 Labs: Abnormal Lab Results - Last 24 Hours (Table) 01/04/24 01/04/24 01/04/24 Range/Units 20:14 20:15 20:35 RBC (3.80-5.40) m/uL Hgb (11.4-16.0) gm/dL Hct (34.0-46.0) % MCHC (31.0-37.0) g/dL RDW (11.5-15.5) % Plt Count (150-450) k/uL Sodium (137-145) mmol/L Carbon Dioxide (22-30) mmol/L BUN (7-17) mg/dL Glucose (74-99) mg/dL POC Glucose (mg/dL) 57 L 52 L 59 L (70-110) mg/dL Calcium (8.4-10.2) mg/dL Crossmatch 01/05/24 01/05/24 01/05/24 Range/Units 05:56 06:11 06:11 RBC 2.44 L (3.80-5.40) m/uL Hgb 6.7 L* (11.4-16.0) gm/dL Hct 21.7 L (34.0-46.0) % MCHC 30.8 L (31.0-37.0) g/dL RDW 16.6 H (11.5-15.5) % Plt Count 125 L (150-450) k/uL Sodium 134 L (137-145) mmol/L Carbon Dioxide 21 L (22-30) mmol/L BUN 51 H (7-17) mg/dL Glucose 100 H (74-99) mg/dL POC Glucose (mg/dL) 118 H (70-110) mg/dL Calcium 8.2 L (8.4-10.2) mg/dL Crossmatch 01/05/24 01/05/24 Range/Units 09:22 11:34 RBC (3.80-5.40) m/uL Hgb (11.4-16.0) gm/dL Hct (34.0-46.0) % MCHC (31.0-37.0) g/dL RDW (11.5-15.5) % Plt Count (150-450) k/uL Sodium (137-145) mmol/L Carbon Dioxide (22-30) mmol/L BUN (7-17) mg/dL Glucose (74-99) mg/dL POC Glucose (mg/dL) 180 H (70-110) mg/dL Calcium (8.4-10.2) mg/dL Crossmatch See Detail Assessment and Plan Assessment: Impression: Triple-vessel coronary artery disease, status post CABG postoperative day #5 Benign essential hypertension Dyslipidemia Insulin-dependent diabetes, hemoglobin A1c 9% Nonalcoholic liver cirrhosis Chronic ongoing tobacco dependence Chronic anemia, with a preoperative hemoglobin of 10.4 Chronic thrombocytopenia Family history of coronary artery disease Postoperative atelectasis, expected Recommendation: Continue maximal medical therapy including Plavix beta-yashira aspirin and statins Continue to ambulate Continue to encourage incentive spirometry Continue oral amiodarone Continue GI and DVT prophylaxis Continue daily labs and daily x-rays of the chest Discharge planning is in progress Will continue to follow Time with Patient: Less than 30
[2024-01-05] MEDS: FUROSEMIDE 10 MG/ML 2 ML VIAL IV ONE (15:57)
[2024-01-05 16:48] LABS: Glucose,Whole Blood 95 mg/dL (70-110)
[2024-01-05 20:16] LABS: Glucose,Whole Blood 67 mg/dL (70-110)
[2024-01-05 20:23] LABS: Glucose,Whole Blood 87 mg/dL (70-110)
--- NOTE | 2024-01-05 21:02 | P.CONS ---
History of Present Illness - Reason for Consult Consult date: 01/05/24 - History of Present Illness This is a 78-year-old right handed female patient who lives in a single story home with 2 ANTOINE lives with her spouse adn daughter. She was previously independent with all ADLs. She was driving. Daughter works from home and able to assist. She has history of nonalcoholic liver cirrhosis, insulin-dependent diabetes mellitus, hyperlipidemia, hypertension, anemia and tobacco dependence. She was found to have triple-vessel coronary artery disease. She was brought in electively for CABG x 3 on 12/31/23. Post op cxr on 01/03/24 showed no pneumothorax. Small to moderate bilateral pleural effusions. She required dopamine gtt for renal perfusion.Repeat Chest x-ray showed mostly atelectasis at the bases and smal left-sided pleural effusion with atelectasis. She is currently below baseline functional status and is mod assist for transfers and ambulated about 4 feet with mod assist. Past Medical History Past Medical History: Coronary Artery Disease (CAD), Chest Pain / Angina, Heart Failure, Diabetes Mellitus, GERD/Reflux, GI Bleed, Hypertension, Liver Disease, Pneumonia Additional Past Medical History / Comment(s): heart murmur,anemia and has had several iron infusions/blood transfusions,past bleeding gastric ulcers, rectal bleed, nonalcoholic liver cirrhosis,RLS,low back/L hip pain, clausterphobia, Covid infection September 2023 History of Any Multi-Drug Resistant Organisms: None Reported Past Surgical History: Appendectomy, Cholecystectomy, Heart Catheterization, H ysterectomy, Orthopedic Surgery, Tonsillectomy Additional Past Surgical History / Comment(s): Hemorrhagic cyst removed from right ureter; Right foot surgery d/t crush injury; Left hip pain stimulator implanted-turned off, Steel iris in right arm, EGDs/colonoscopies, bone marrow aspirations, low back and cervical injections for pain, bilateral cataract removals with lens implants. Right middle and ring finger trigger release. Past Anesthesia/Blood Transfusion Reactions: No Reported Reaction, Motion Sickness Additional Past Anesthesia/Blood Transfusion Reaction / Comm: Pt has had several blood transfusions without reaction. Pt has claustrophobia. Smoking Status: Former smoker - Past Family History Father Additional Family Medical History / Comment(s): Father was an alcoholic but was sober for the last 9 yrs of his life. Mother Family Medical History: Coronary Artery Disease (CAD), Diabetes Mellitus Additional Family Medical History / Comment(s): Low hgb. She during a c olonoscopy. She had 4 vessel CABG Sister(s) Additional Family Medical History / Comment(s): heart stent Medications and Allergies Home Medications Medication Instructions Recorded Confirmed Type Esomeprazole Magnesium [NexIUM] 40 mg PO QAM 02/21/18 12/30/23 History HYDROcodone/APAP 10-325MG [Leblanc 1 tab PO Q6HR PRN 3 Days #12 tab 02/19/21 12/30/23 Rx 10-325] Cyclobenzaprine [Flexeril] 10 mg PO HS 07/15/21 12/30/23 History Pramipexole [Mirapex] 1 mg PO HS 10/15/21 12/30/23 History Atorvastatin [Lipitor] 40 mg PO HS 12/18/21 12/30/23 History Gabapentin 300 mg PO HS 12/18/21 12/30/23 History Aspirin [Adult Low Dose Aspirin EC] 81 mg PO DAILY 08/12/22 12/30/23 History Losartan [Cozaar] 25 mg PO HS 08/12/22 12/30/23 History carvediloL 25 mg PO BID 08/12/22 12/30/23 History amLODIPine BESYLATE [Amlodipine 10 mg PO DAILY 11/26/23 12/30/23 History Besylate] traZODone HCL [Desyrel] 50 mg PO HS 11/26/23 12/30/23 History Nicotine 21Mg/24Hr Patch [Habitrol] 1 each TRANSDERM DAILY 12/30/23 12/30/23 History Insulin Glargine [Lantus Vial] 60 unit SQ HS 12/31/23 12/31/23 History Insulin Glargine [Lantus Vial] 79 unit SQ DAILY 12/31/23 12/31/23 History Allergies Allergy/AdvReac Type Severity Reaction Status Date / Time pentazocine [From Lashell] Allergy Hallucinati Verified 12/31/23 06:00 ons Physical Exam Vitals: Vital Signs Temp Pulse Pulse Pulse Resp BP BP 01/05/24 11:15 98.0 F 68 18 122/58 01/05/24 11:05 98.5 F 68 18 138/80 01/05/24 09:33 80 01/05/24 09:23 76 01/05/24 08:00 97.8 F 76 18 143/67 01/05/24 04:20 97.9 F 60 20 01/04/24 23:28 97.9 F 55 L 17 01/04/24 19:40 97.6 F 63 16 124/72 01/04/24 16:29 81 16 01/04/24 16:19 84 16 01/04/24 16:00 97.6 F 61 16 01/04/24 15:00 61 15 123/54 01/04/24 14:00 60 20 01/04/24 13:00 61 13 104/40 01/04/24 12:00 62 20 122/54 BP Pulse Ox 01/05/24 11:15 01/05/24 11:05 01/05/24 09:33 01/05/24 09:23 96 01/05/24 08:00 92 L 01/05/24 04:20 107/72 96 01/04/24 23:28 99/64 97 01/04/24 19:40 94 L 01/04/24 16:29 01/04/24 16:19 01/04/24 16:00 111/66 95 01/04/24 15:00 93 L 01/04/24 14:00 01/04/24 13:00 01/04/24 12:00 94 L Intake and Output 01/04/24 01/05/24 01/05/24 22:59 06:59 14:59 Intake Total 148 20 128 Output Total 10 Balance 138 20 128 Intake: IV 30 20 10 0.9% NS @ KVO 10 Invasive Line 5 10 10 Invasive Line 6 10 10 10 Oral 118 118 Blood Product 0 Unit 0 Output: Urine 10 Other: Voiding Method Toilet Toilet Toilet Diaper Incontinent # Voids 1 1 # Bowel Movements 1 Weight 82.5 kg General: NAD, sitting in chair Derm: Warm, dry, chest dressing c/d/i Head: Atraumatic, normocephalic, symmetric Eyes: EOMI, no lid lag, anicteric sclera Mouth: No lip lesion, mucus membranes moist Cardiovascular: S1S2 reg, no murmur, +blle, +heart hugger Lungs: no audible wheezing or increased respiratory effort, on 1 L NC Abdominal: Soft, nontender to palpation MSK: UE at least 4/5, SA not tested LE 4/5 throughout Neuro: CN II-XI grossly intact, sensation to LT intact to UE and LE Skin: ecchymosis to legs. Psych: Alert, oriented, appropriate affect Results CBC & Chem 7: 01/05/24 06:11 01/05/24 06:11 Labs: Abnormal Lab Results - Last 24 Hours (Table) 01/04/24 01/04/24 01/04/24 Range/Units 20:14 20:15 20:35 RBC (3.80-5.40) m/uL Hgb (11.4-16.0) gm/dL Hct (34.0-46.0) % MCHC (31.0-37.0) g/dL RDW (11.5-15.5) % Plt Count (150-450) k/uL Sodium (137-145) mmol/L Carbon Dioxide (22-30) mmol/L BUN (7-17) mg/dL Glucose (74-99) mg/dL POC Glucose (mg/dL) 57 L 52 L 59 L (70-110) mg/dL Calcium (8.4-10.2) mg/dL Crossmatch 01/05/24 01/05/24 01/05/24 Range/Units 05:56 06:11 06:11 RBC 2.44 L (3.80-5.40) m/uL Hgb 6.7 L* (11.4-16.0) gm/dL Hct 21.7 L (34.0-46.0) % MCHC 30.8 L (31.0-37.0) g/dL RDW 16.6 H (11.5-15.5) % Plt Count 125 L (150-450) k/uL Sodium 134 L (137-145) mmol/L Carbon Dioxide 21 L (22-30) mmol/L BUN 51 H (7-17) mg/dL Glucose 100 H (74-99) mg/dL POC Glucose (mg/dL) 118 H (70-110) mg/dL Calcium 8.2 L (8.4-10.2) mg/dL Crossmatch 01/05/24 01/05/24 Range/Units 09:22 11:34 RBC (3.80-5.40) m/uL Hgb (11.4-16.0) gm/dL Hct (34.0-46.0) % MCHC (31.0-37.0) g/dL RDW (11.5-15.5) % Plt Count (150-450) k/uL Sodium (137-145) mmol/L Carbon Dioxide (22-30) mmol/L BUN (7-17) mg/dL Glucose (74-99) mg/dL POC Glucose (mg/dL) 180 H (70-110) mg/dL Calcium (8.4-10.2) mg/dL Crossmatch See Detail Assessment and Plan Assessment: #Debility s/p CABG x 3 on 12/31/23 -PT/OT while in acute care. Reviewed therapies patient is mod A to ambulate 4 feet which is significantly below baseline level. Anticipate he will need structured therapy. Disposition: Would benefit from IPR once medically stable. Has good support at home. # Insulin-dependent diabetes #Post op blood loss anemia #Hypertension -on coreg 3.125 mg bid, amlodipine being held until bp can tolerate. #HLD -on atorvastatin #GERD #LOPEZ cirrhosis #Neuropathy -on gabapentin
--- NOTE | 2024-01-05 21:35 | P.PN ---
Subjective Progress Note Date: 01/05/24 This is a 78-year-old female patient who was diagnosed recently with severe symptomatic triple-vessel coronary artery disease with anatomy favoring surgical revascularization. She was admitted to the hospital yesterday and she underwent CABG x 3 with GARCIA to LAD and SVG to first obtuse marginal branch and SVG to RCA. This is postoperation day #1. Currently the patient is extubated. She seems to be stable from the cardiac standpoint of view and not requiring any vasopressors at this point. As [id number] she is hypertensive and currently she is on Cleviprex which is in process of being weaned. Hemoglobin is stable. Electrolytes are within normal limits. Kidney function is stable. Beside that the chest x-ray was reviewed and seems to be somewhat wet. Her urine output has been marginal. I am going to give the patient 20 mg of Lasix IV once. Will continue monitor the kidney function and electrolytes and continue monitor the hemoglobin and chest x-ray as well as well as a urine output. Beside that she is on dual antiplatelet therapy along with intermediate intensity statin. We will consider increasing the statin intensity to hide down the line. The examination is remarkable for stable vital signs with somewhat elevated blood pressure as well as regular rate and rhythm with a distant heart sounds and diminished breathing sounds bilaterally no edema was noted in the lower extremities January 02, 2024 The patient was seen and evaluated this morning. He has been maintaining normal sinus mechanism and she remains hemodynamically stable but urine output has been marginal and I reviewed the chest x-ray which showed small bilateral pleural effusion versus atelectasis. With that being said I am going to get the patient 20 mg of Lasix IV and follow-up with her. Meanwhile continue the current medical regimen. Examination is remarkable for regular rhythm with distant hea rt sounds and diminished breathing sounds bilaterally and no edema was noted January 03, 2024 The patient was seen and evaluated this morning. She remains a stable. The pressure appears to be better overall. BUN and creatinine are slightly worse today. She was started on dopamine and her urine output has been definitely better. Otherwise the chest x-ray seems to be also slightly better but the examination is remarkable for regular rhythm with a distant heart sounds and diminished breathing sounds bilaterally. January 04, 2024 Patient is seen and examined at bedside. Patient has overall showing slow clinical improvement. Denies any lightheadedness dizziness. Telemetry does not show any arrhythmias January 05, 2024 Patient is seen and examined at bedside. Telemetry does not show any arrhy thmias. Hemodynamically stable. Regular pulses, distant heart sounds, diminished breath sounds bilaterally with no significant crackles or rhonchi. No significant swelling bilateral extremity. No signs of bleeding Assessment Severe triple-vessel CAD as described above Status post CABG as described above Multiple comorbid conditions including hypertension and dyslipidemia and smoking and diabetes Plan Continue the current medical regimen Continue monitor the kidney function and electrolytes and hemoglobin Follow-up with the patient Objective - Vital Signs Vital signs: Vital Signs Temp 98.1 F 01/05/24 20:00 Pulse 67 01/05/24 20:00 Resp 20 01/05/24 20:00 BP 147/73 01/05/24 20:00 Pulse Ox 94 L 01/05/24 20:00 FiO2 40 12/31/23 18:01 Intake & Output 01/05/24 01/05/24 01/06/24 06:59 18:59 06:59 Intake Total 40 448 Output Total 10 1100 400 Balance 30 -652 -400 Weight 82.5 kg 82.5 kg Intake: IV 40 20 Invasive Line 5 20 Invasive Line 6 20 20 Oral 118 Blood Product 310 Rc As-1 Unit 310 [id number] Output: Urine 10 1100 400 Other: Voiding Method Toilet Toilet Diaper Incontinent # Voids 1 # Bowel Movements 1 ABP, PAP, CO, CI - Last Documented Arterial Blood Pressure 115/39 Pulmonary Artery Pressure 23/3 Cardiac Output 5.7 Cardiac Index 3.3 - Labs CBC & Chem 7: 01/05/24 06:11 01/05/24 06:11 Labs: Abnormal Lab Results - Last 24 Hours (Table) 01/05/24 01/05/24 01/05/24 Range/Units 05:56 06:11 06:11 RBC 2.44 L (3.80-5.40) m/uL Hgb 6.7 L* (11.4-16.0) gm/dL Hct 21.7 L (34.0-46.0) % MCHC 30.8 L (31.0-37.0) g/dL RDW 16.6 H (11.5-15.5) % Plt Count 125 L (150-450) k/uL Sodium 134 L (137-145) mmol/L Carbon Dioxide 21 L (22-30) mmol/L BUN 51 H (7-17) mg/dL Glucose 100 H (74-99) mg/dL POC Glucose (mg/dL) 118 H (70-110) mg/dL Calcium 8.2 L (8.4-10.2) mg/dL Crossmatch 01/05/24 01/05/24 01/05/24 Range/Units 09:22 11:34 20:01 RBC (3.80-5.40) m/uL Hgb (11.4-16.0) gm/dL Hct (34.0-46.0) % MCHC (31.0-37.0) g/dL RDW (11.5-15.5) % Plt Count (150-450) k/uL Sodium (137-145) mmol/L Carbon Dioxide (22-30) mmol/L BUN (7-17) mg/dL Glucose (74-99) mg/dL POC Glucose (mg/dL) 180 H 67 L (70-110) mg/dL Calcium (8.4-10.2) mg/dL Crossmatch See Detail
[2024-01-06 06:18] LABS: Glucose,Whole Blood 92 mg/dL (70-110)
[2024-01-06 06:27] LABS: Anisocytosis Slight; HCT 26.5 % (34.0-46.0); Hypochromasia Moderate; MCH 27.5 pg (25.0-35.0); MCHC 31.4 g/dL (31.0-37.0); MCV 87.5 fL (80.0-100.0); Mean Platelet Volume 8.8; Platelet Count 163 k/uL (150-450); Poikilocytosis Slight; RBC 3.03 m/uL (3.80-5.40); RDW 16.4 % (11.5-15.5); WBC 10.5 k/uL (3.8-10.6)
[2024-01-06 06:36] LABS: HGB 8.3 gm/dL (11.4-16.0)
[2024-01-06 06:46] LABS: African American GFR (CKD) 68 (>60 ml/min/1.73 sqM); Anion Gap 6 mmol/L; Blood Urea Nitrogen 40 mg/dL (7-17); Calcium 8.4 mg/dL (8.4-10.2); Carbon Dioxide 22 mmol/L (22-30); Chloride 104 mmol/L (98-107); Glucose 74 mg/dL (74-99); Non-African American GFR(CKD) 59 (>60 ml/min/1.73 sqM); Potassium 4.3 mmol/L (3.5-5.1); Sodium 132 mmol/L (137-145)
--- NOTE | 2024-01-06 07:46 | XR ---
EXAMINATION TYPE: XR chest 1V portable DATE OF EXAM: 01/06/2024 HISTORY: Shortness of breath. COMPARISON: 01/05/2024 TECHNIQUE: Single view of the chest is submitted. FINDINGS: Demonstrated are scattered senescent parenchymal change. Post CABG changes. Improving pulmonary venous congestion and effusions as well as pleural parenchymal opacity at the lung bases. Hilar and mediastinal structures are within normal limits. Degenerative changes are seen of the dorsal spine. IMPRESSION: 1. Post CABG changes. Improving pulmonary venous congestion and effusions as well as pleural parench ymal opacity at the lung bases.
--- NOTE | 2024-01-06 08:06 | P.PN ---
Subjective Progress Note Date: 01/06/24 Principal diagnosis: Multivessel coronary artery disease. 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 POD #6 Off Pump Coronary Artery Bypass Grafting x 3. Left internal thoracic artery (in-situ) to left anterior descending coronary artery, reverse saphenous vein from aorta to obtuse marginal artery #1, reverse saphenous vein from aorta to distal coronary artery. Left Atrial Appendage Ligation with #35mm AtriClip, endoscopic bilateral greater saphenous vein harvest, graft flow measurements using the [employer]-stim flow meter system, intraoperative transesophageal echocardiogram completed by anesthesia. Postoperative acute blood loss anemia and thrombocytopenia, expected given hemodilution and her preoperative anemia and thrombocytopenia. The patient was seen and examined in follow-up today January 06, 2024 at her bedside on the third floor cardiac stepdown unit. She is currently sitting up to the bedside chair, is awake, alert, oriented x 3 and is in no acute apparent distress. Denies any complaints of shortness of breath at this time, although is complaining of some surgical type pain to her midline sternal incision. Currently rating her pain 4 out of 10 on the pain scale. Oxygen saturations are 93% on room air and she is achieving 1000 mL on her incentive spirometry with encouragement. Remote telemetry is showing normal sinus rhythm heart rate 71 bpm. She remains hemodynamically stable and is currently on no inotropic or pressor support. She reports she walked once in the cardiac stepdown unit hallway yesterday with standby assistance from nursing and therapy staff. Ventricular epicardial pacemaker wires were removed yesterday without incident. Hemoglobin was 6.7 yesterday, the patient received 1 unit of packed red blood cells and followed by Lasix 20 mg IV x 1. Hemoglobin 8.3 today. Chest x-ray and laboratory results were reviewed. Objective - Vital Signs Vital signs: Vital Signs Temp 99.0 F 01/06/24 03:47 Pulse 65 01/06/24 03:47 Resp 18 01/06/24 03:47 BP 138/69 01/06/24 03:47 Pulse Ox 93 L 01/06/24 03:47 FiO2 40 12/31/23 18:01 Intake & Output 07/01/06/24 01/06/24 18:59 06:59 18:59 Intake Total 448 420 Output Total 1100 400 Balance -652 20 Weight 82.5 kg 81.4 kg Intake: IV 20 20 Invasive Line 6 20 20 Oral 118 400 Blood Product 310 Rc As-1 Unit 310 [id number] Output: Urine 1100 400 Other: Voiding Method Toilet Toilet Diaper Diaper Incontinent Incontinent # Voids 1 ABP, PAP, CO, CI - Last Documented Arterial Blood Pressure 115/39 Pulmonary Artery Pressure 23/3 Cardiac Output 5.7 Cardiac Index 3.3 - Exam CONSTITUTIONAL: Sitting up to the bedside chair on the third floor cardiac stepdown unit, appears comfortable, cooperative, no apparent acute distress. HEENT: Neck is supple, no JVD, no lymphadenopathy. RESPIRATORY: Lungs sounds essentially clear throughout, diminished to her bilateral bases. Respirations are symmetrical and nonlabored. Currently on room air with oxygen saturations 93%. Able to achieve 1000 mL on her incentive spirometry. Strong cough. CARDIOVASCULAR: Regular rhythm and rate. S1 and S2 present, negative for S3, gallop or murmur. Remote telemetry showing normal sinus rhythm, heart rate 71 bpm. Sternum is stable. Palpable peripheral pulses bilaterally. No calf pain or tenderness noted. Heart hugger in place with patient demonstrating appropriate use. Knee-high BASHIR hose and sequential compression devices in place to his bilateral lower extremities. GASTROINTESTINAL: Abdomen soft, nontender, nondistended. Active bowel sounds present 4 quadrants. Tolerating diet. Passing flatus. No guarding or rigidity. Bowel movement yesterday January 05, 2024. GENITOURINARY: Continues to void. INTEGUMENTARY: Skin is warm and dry with no evidence of clubbing or cyanosis. Midline sternal incision clean dry and well approximated, covered with dry intact dressing. Bilateral lower extremity EVH sites well approximated without redness or drainage. Ecchymosis to her bilateral upper hamstring area. NEUROLOGIC: Cranial nerves II through XII intact. No focal deficits. MUSKULOSKELETAL: Able to move all extremities, strength equal bilaterally, generalized weakness. PSYCHIATRIC: Alert and oriented to person place and time, appropriate affect, intact judgment and insight. - Allied health notes Allied health notes reviewed: nursing - Labs CBC & Chem 7: 01/06/24 06:08 01/06/24 06:08 Labs: Abnormal Lab Results - Last 24 Hours (Table) 01/05/24 01/05/24 01/05/24 Range/Units 06:11 09:22 11:34 RBC (3.80-5.40) m/uL Hgb (11.4-16.0) gm/dL Hct (34.0-46.0) % RDW (11.5-15.5) % Sodium 134 L (137-145) mmol/L Carbon Dioxide 21 L (22-30) mmol/L BUN 51 H (7-17) mg/dL Glucose 100 H (74-99) mg/dL POC Glucose (mg/dL) 180 H (70-110) mg/dL Calcium 8.2 L (8.4-10.2) mg/dL Crossmatch See Detail 01/05/24 01/06/24 01/06/24 Range/Units 20:01 06:08 06:08 RBC 3.03 L (3.80-5.40) m/uL Hgb 8.3 L D (11.4-16.0) gm/dL Hct 26.5 L (34.0-46.0) % RDW 16.4 H (11.5-15.5) % Sodium 132 L (137-145) mmol/L Carbon Dioxide (22-30) mmol/L BUN 40 H (7-17) mg/dL Glucose (74-99) mg/dL POC Glucose (mg/dL) 67 L (70-110) mg/dL Calcium (8.4-10.2) mg/dL Crossmatch - Imaging and Cardiology Chest x-ray: report reviewed, image reviewed Assessment and Plan Assessment: Triple-vessel coronary artery disease, status post three-vessel off-pump coronary artery bypass grafting surgery Hypertension Hyperlipidemia, cholesterol 149, LDL 82 Insulin-dependent diabetes, hemoglobin A1c 9% Nonalcoholic liver cirrhosis, MELD score 8, child Moreau score 6, class A Chronic ongoing tobacco dependence Chronic anemia, with a preoperative hemoglobin of 10.4 Chronic thrombocytopenia, preoperative platelet count of 94 Family history of coronary artery disease Postoperative acute blood loss anemia and thrombocytopenia, expected given hemodilution and her preoperative anemia and thrombocytopenia Plan: Encourage incentive spirometry use 10 times every hour while awake, bronchodilators per pulmonology. Increase activity, ambulate as tolerated. PT/OT/cardiac rehab following. Start amlodipine 2.5 mg p.o. daily at noon for radial artery spasm prophylaxis. Hold for systolic blood pressure less than 110 mmHg. Continue amiodarone to 200 mg p.o. twice daily for atrial fibrillation prophylaxis. No atrial fibrillation has been reported, currently in normal sinus rhythm. Will monitor daily labs and chest x-rays. Electrolyte replacement per protocol. GI/DVT prophylaxis. Insulin management per internal medicine. The patient is an insulin dependent diabetic, with a preoperative hemoglobin A1c 9.0%. Will need tight blood sugar control to promote healing. Pain control per current medication regimen. Shower daily. Continue to monitor and record strict accurate intake and output. Daily weights. Discharge planning is in place, anticipate discharge to inpatient rehab at [facility] within the next 24 to 48 hours. More recommendations to follow based on patient's clinical course. Time with Patient: Greater than 30
[2024-01-06] MEDS ORDERED: INSULIN DETEMIR (LEVEMIR) 100 UNIT/ML SYR SQ SCH (08:30)
[2024-01-06] MEDS: INSULIN DETEMIR (LEVEMIR) 100 UNIT/ML SYR SQ SCH (09:29)
--- NOTE | 2024-01-06 11:10 | P.PN ---
Subjective Progress Note Date: 01/06/24 Subjective: Patient seen and examined at bedside. Patient had 1 episode of hypoglycemia yesterday evening. Still feeling weak but improving. Oral intake still poor but tolerating. Denies any significant chest pain, shortness of breath, abdominal pain. Pertinent positives and negatives as discussed above, a complete review of systems was performed and all other systems are negative. Vitals Signs Reviewed. General: Nontoxic, no distress, appears at stated age, obese Derm: Warm, dry, chest dressing clean, dry, intact, bilateral medial thigh ecchymosis Head: Atraumatic, normocephalic, symmetric Eyes: EOMI, no lid lag, anicteric sclera Mouth: No lip lesion, mucus membranes moist Cardiovascular: S1S2 reg, no murmur Lungs: CTA bilateral, no rhonchi, no rales, no accessory muscle use Abdominal: Soft, nontender to palpation, no guarding, no appreciable organomegaly Ext: No gross muscle atrophy, no edema, no contractures Neuro: CN II-XI grossly intact, no focal neuro deficits Psych: Alert, oriented, appropriate affect Data Reviewed Today: Pertinent Labs:WBC 8.3, platelet 163, sodium 132, creatinine 0.95, blood sugars range between 67-95 Imaging: Chest x-ray independently interpreted, shows postoperative changes, stable compared to yesterday 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 Acute blood loss anemia, anticipated outcome of surgery Hyponatremia, resolved Hypertension Dyslipidemia GERD LOPEZ cirrhosis Nicotine dependence Restless leg syndrome Neuropathy -Due to hypoglycemia, and still poor oral intake, patient still having some hypoglycemic events -Insulin regimen changed to Levemir 30 units daily, discontinued Premeal short acting insulin -Continue insulin aspart sliding scale ACHS, monitor for hypoglycemia -Insulin regimen may need to be slowly titrated up once oral intake improves at rehab -Cardiothoracic surgery note reviewed, continue amiodarone 200 mg twice daily, anticipate inpatient rehab in 24 to 48 hours, started on amlodipine 2.5 daily -Cardiology and pulmonology following, on bronchodilators -Continue aspirin 325 daily, atorvastatin 40 mg daily, carvedilol 3.125 twice daily, Plavix 75 daily -Continue gabapentin 300 mg nightly, pramipexole 1 mg nightly, esomeprazole 40mg daily, Flexeril 10 nightly Subcu heparin for DVT prophylaxis Thank you for allowing us to participate in the care of this pleasant patient. Do not hesitate to contact us with questions. Someone can be reached from the [facility] hospitalist group all hours of the day at [phone] or via perfect serve. Objective - Vital Signs Vital signs: Vital Signs Temp 98.2 F 01/06/24 08:00 Pulse 76 01/06/24 09:05 Resp 18 01/06/24 08:00 BP 144/64 01/06/24 08:00 Pulse Ox 97 01/06/24 08:54 FiO2 40 12/31/23 18:01 Intake & Output 01/05/24 01/06/24 01/06/24 18:59 06:59 18:59 Intake Total 448 420 10 Output Total 1100 400 Balance -652 20 10 Weight 82.5 kg 81.4 kg Intake: IV 20 20 10 Invasive Line 6 20 20 10 Oral 118 400 Blood Product 310 Rc As-1 Unit 310 [id number] Output: Urine 1100 400 Other: Voiding Method Toilet Toilet Toilet Diaper Diaper Diaper Incontinent Incontinent Incontinent # Voids 1 ABP, PAP, CO, CI - Last Documented Arterial Blood Pressure 115/39 Pulmonary Artery Pressure 23/3 Cardiac Output 5.7 Cardiac Index 3.3 - Labs CBC & Chem 7: 01/06/24 06:08 01/06/24 06:08 Labs: Abnormal Lab Results - Last 24 Hours (Table) 01/05/24 01/05/24 01/05/24 Range/Units 09:22 11:34 20:01 RBC (3.80-5.40) m/uL Hgb (11.4-16.0) gm/dL Hct (34.0-46.0) % RDW (11.5-15.5) % Sodium (137-145) mmol/L BUN (7-17) mg/dL POC Glucose (mg/dL) 180 H 67 L (70-110) mg/dL Crossmatch See Detail 01/06/24 01/06/24 Range/Units 06:08 06:08 RBC 3.03 L (3.80-5.40) m/uL Hgb 8.3 L D (11.4-16.0) gm/dL Hct 26.5 L (34.0-46.0) % RDW 16.4 H (11.5-15.5) % Sodium 132 L (137-145) mmol/L BUN 40 H (7-17) mg/dL POC Glucose (mg/dL) (70-110) mg/dL Crossmatch
[2024-01-06 11:37] LABS: Glucose,Whole Blood 110 mg/dL (70-110)
[2024-01-06] MEDS: amLODIPine 2.5 MG TAB PO SCH (11:49)
[2024-01-06 16:38] LABS: Glucose,Whole Blood 124 mg/dL (70-110)
--- NOTE | 2024-01-06 16:57 | P.PN ---
Subjective Progress Note Date: 01/06/24 Principal diagnosis: POD #6 off Pump Coronary Artery Bypass Grafting x 3. Left internal thoracic artery (in-situ) to left anterior descending coronary artery, reverse saphenous vein from aorta to obtuse marginal artery #1, reverse saphenous vein from aorta to distal coronary artery. This is a 78-year-old female patient with a known history of chronic tobacco dependence, chronic anemia, nonalcoholic liver cirrhosis, insulin-dependent diabetes mellitus, hyperlipidemia, hypertension and recently found to have triple-vessel coronary artery disease. She was brought in electively today and had undergone an off-pump coronary artery bypass grafting x 3 with a GARCIA to the LAD, reverse saphenous vein to the obtuse marginal artery 1, reverse saphenous grain from to the distal right coronary artery and left atrial appendage ligation. She is seen postoperatively in the intensive care unit. She is intubated on the mechanical ventilator currently on assist-control mode with a rate of 14, tidal volume 350, FiO2 50% and a PEEP of 10. Blood gases revealed a PaO2 of 312, pCO2 45 and a pH of 7.35 and 100% FiO2. She is sedated on propofol at 50 mcg/kg/min. She is on amiodarone drip at 1 mg/min. Insulin drip at 0.5 units an hour. Nitroglycerin drip at 10 mcg/min. Normal saline at 50 MLS per hour. Cardiac output 3.8. Cardiac index 2.2. PA pressures 27/12. CVP 6. A febrile. Hemodynamically stable. Chest x-ray revealed bilateral consolidation and pleural effusion. No sizable pneumothorax. Right left and mediastinal chest tubes in place. White count 7.6. Hemoglobin 8.0. Platelets 85,000. INR 1.5. Sodium 136. Potassium 4.1. Bicarb 24. BUN 9. Creatinine 0.55. Glucose 117. Albumin 2.6. She is continued on bronchodilators. Heparin for DVT prophylaxis. The patient is seen today January 01, 2024 in follow-up in the intensive care unit. She is currently sitting up in a chair. Awake and alert in no acute distress. She is maintaining good O2 saturations in the 90s on 2 L/min per nasal cannula. She remains on normal saline at 50 MLS per hour. Nitroglycerin drip at 5 mcg/min. Cleviprex at 6 mg an hour. Amiodarone at 0.5 mg/min. Insulin drip at 3 units/h. Cardiac output 5.7. Cardiac index 3.3. PA pressure 25/7. CVP 2. Afebrile. Hemodynamically stable. Chest x-ray reveals increased pulmonary venous congestion and increased patchy infiltrate in the left lower lobe. Mediastinal, left and right chest tubes remain in place. She is encouraged regarding the increased use of the incentive spirometer. White count 13.8. Hemoglobin 9.0. Platelets 122. Sodium 132. Potassium 3.8. Bicarb 20. BUN 10. Creatinine 0.57. Glucose 120. She is continued on DuoNeb inhalations. Heparin for DVT prophylaxis. The patient is seen today January 02, 2024 in follow-up in the intensive care unit. Postoperative day #2. She is awake and alert in no acute distress. Sitting up in a chair at the bedside. Feeling a bit better today compared to yesterday. She is maintaining good O2 saturations in the 90s on 2 L/min per nasal cannula. She has normal saline at 30 MLS per hour. Continues on an insulin drip at 2.5 units/h. She is continued on DuoNeb inhalations. Heparin for DVT prophylaxis. Working well with the incentive spirometer. Chest x-ray shows no acute pulmonary process. Chest tubes remain in place. White count 10.2. Hemoglobin 7.8. Platelets 84,000. Sodium 130. Potassium 4.3. Bicarb 20. BUN 19. Creatinine 0.84. Glucose 117. The patient is seen today January 03, 2024 in follow-up in the intensive care unit. Postoperative day #3. She is sitting up in a chair at the bedside. Awake and alert in no acute distress. Denies any worsening shortness of breath, cough or congestion. Only pulling approximately 500 mL on her incentive spirometer. Her urine output has been marginal. She has been initiated on a dopamine drip at 3 mcg/kg/min. Normal saline at KVO. She is maintaining O2 saturations in the 90s on 4 L/min per nasal cannula. Chest x-ray shows interval removal of the right CVP catheter and bilateral chest tubes. No pneumothorax. Small to moderate bilateral pleural effusions. White count 10.1. Hemoglobin 7.2. Platelets 104. Sodium 130. Potassium 4.3. Bicarb 17. BUN 34. Creatinine 1.11. Glucose 185. She remains on bronchodilators. Heparin for DVT prophylaxis. Patient was seen and evaluated on 01/04/2024, she is now postoperative day #4. Patient remains on 4 L nasal cannula, she is getting a bit stronger, remains generally weak, about 1000 cc on her incentive spirometry, pain is fairly under control. O2 saturation 94% on 4 L nasal cannula. Remains on dopamine at renal perfusion dose at 3 mcg/kg/min her urine output is excellent over the last 8 hours. Chest x-ray showed mostly atelectasis at the bases and smal left-sided pleural effusion with atelectasis WBC count is 12.7 hemoglobin 7.7 electrolytes are normal BUN is 46 creatinine 1.14 Evaluated today on 01/05/24, patient is now postoperative day #5. Patient is now on room air, does not seem to be in any distress, O2 saturation 94%, doing well with incentive spirometry, she is in sinus rhythm, has been ambulating in the cardiac stepdown unit hallway chest x-ray continues to show small pleural effusions and atelectasis. Hemoglobin today is 6.7 WBC count is 8.2 electrolytes are normal BUN 61 creatinine 1.03 Patient was seen today on 01/06/2024 operative day #6 continues to do well, relatively asymptomatic, discharge planning is in progress to possible inpatient rehab. Reviewed her chest x-ray, reviewed her labs, chest x-ray is showing improvement in her pulmonary vascular congestion and effusions as well as atelectasis. CBC is relatively normal hemoglobin is 8.3 basic metabolic profile is normal Objective - Vital Signs Vital signs: Vital Signs Temp 98 F 01/06/24 11:45 Pulse 70 01/06/24 16:38 Resp 18 01/06/24 11:45 BP 108/56 01/06/24 11:45 Pulse Ox 93 L 01/06/24 11:45 FiO2 40 12/31/23 18:01 Intake & Output 01/05/24 01/06/24 01/06/24 18:59 06:59 18:59 Intake Total 448 420 380 Output Total 1100 400 300 Balance -652 20 80 Weight 82.5 kg 81.4 kg Intake: IV 20 20 20 Invasive Line 6 20 20 20 Oral 118 400 360 Blood Product 310 Rc As-1 Unit 310 [id number] Output: Urine 1100 400 300 Other: Voiding Method Toilet Toilet Toilet Diaper Diaper Diaper Incontinent Incontinent Incontinent # Voids 1 2 ABP, PAP, CO, CI - Last Documented Arterial Blood Pressure 115/39 Pulmonary Artery Pressure 23/3 Cardiac Output 5.7 Cardiac Index 3.3 - Exam General: Revealed a 78-year-old female in no distress, on room air HEENT: Neck is supple, no JVD, no lymphadenopathy. RESPIRATORY: Clear bilaterally no crackles rhonchi or wheeze CARDIOVASCULAR: Regular rhythm and rate. S1 and S2 present, negative for S3, gallop or murmur. Abdomen: Soft nontender no megaly no rebound no guarding INTEGUMENTARY: Skin is warm and dry with no evidence of clubbing or cyanosis. NEUROLOGIC: Alert and oriented x 3 no gross focal deficit MUSKULOSKELETAL: No clubbing edema or cyanosis PSYCHIATRIC: Normal mood affect and no mental status examination - Labs CBC & Chem 7: 01/06/24 06:08 01/06/24 06:08 Labs: Abnormal Lab Results - Last 24 Hours (Table) 01/05/24 01/06/24 01/06/24 Range/Units 20:01 06:08 06:08 RBC 3.03 L (3.80-5.40) m/uL Hgb 8.3 L D (11.4-16.0) gm/dL Hct 26.5 L (34.0-46.0) % RDW 16.4 H (11.5-15.5) % Sodium 132 L (137-145) mmol/L BUN 40 H (7-17) mg/dL POC Glucose (mg/dL) 67 L (70-110) mg/dL 01/06/24 Range/Units 16:36 RBC (3.80-5.40) m/uL Hgb (11.4-16.0) gm/dL Hct (34.0-46.0) % RDW (11.5-15.5) % Sodium (137-145) mmol/L BUN (7-17) mg/dL POC Glucose (mg/dL) 124 H (70-110) mg/dL Assessment and Plan Assessment: Impression: Triple-vessel coronary artery disease, status post CABG postoperative day #6 Benign essential hypertension Dyslipidemia Insulin-dependent diabetes, hemoglobin A1c 9% Nonalcoholic liver cirrhosis Chronic ongoing tobacco dependence Chronic anemia, with a preoperative hemoglobin of 10.4 Chronic thrombocytopenia Family history of coronary artery disease Postoperative atelectasis, expected, improving based on chest x-ray today. Recommendation: Continue maximal medical therapy including Plavix beta-yashira aspirin and statins Continue to ambulate Continue to encourage incentive spirometry Continue GI and DVT prophylaxis Continue daily labs and daily x-rays of the chest Discharge planning is in progress, patient would like to go to rehab in the next 24 hours Will continue to follow Time with Patient: Less than 30
--- NOTE | 2024-01-06 19:10 | P.PN ---
Subjective Progress Note Date: 01/06/24 This is a 78-year-old female patient who was diagnosed recently with severe symptomatic triple-vessel coronary artery disease with anatomy favoring surgical revascularization. She was admitted to the hospital yesterday and she underwent CABG x 3 with GARCIA to LAD and SVG to first obtuse marginal branch and SVG to RCA. This is postoperation day #1. Currently the patient is extubated. She seems to be stable from the cardiac standpoint of view and not requiring any vasopressors at this point. As [id number] she is hypertensive and currently she is on Cleviprex which is in process of being weaned. Hemoglobin is stable. Electrolytes are within normal limits. Kidney function is stable. Beside that the chest x-ray was reviewed and seems to be somewhat wet. Her urine output has been marginal. I am going to give the patient 20 mg of Lasix IV once. Will continue monitor the kidney function and electrolytes and continue monitor the hemoglobin and chest x-ray as well as well as a urine output. Beside that she is on dual antiplatelet therapy along with intermediate intensity statin. We will consider increasing the statin intensity to hide down the line. The examination is remarkable for stable vital signs with somewhat elevated blood pressure as well as regular rate and rhythm with a distant heart sounds and diminished breathing sounds bilaterally no edema was noted in the lower extremities January 02, 2024 The patient was seen and evaluated this morning. He has been maintaining normal sinus mechanism and she remains hemodynamically stable but urine output has been marginal and I reviewed the chest x-ray which showed small bilateral pleural effusion versus atelectasis. With that being said I am going to get the patient 20 mg of Lasix IV and follow-up with her. Meanwhile continue the current medical regimen. Examination is remarkable for regular rhythm with distant hea rt sounds and diminished breathing sounds bilaterally and no edema was noted January 03, 2024 The patient was seen and evaluated this morning. She remains a stable. The pressure appears to be better overall. BUN and creatinine are slightly worse today. She was started on dopamine and her urine output has been definitely better. Otherwise the chest x-ray seems to be also slightly better but the examination is remarkable for regular rhythm with a distant heart sounds and diminished breathing sounds bilaterally. January 04, 2024 Patient is seen and examined at bedside. Patient has overall showing slow clinical improvement. Denies any lightheadedness dizziness. Telemetry does not show any arrhythmias January 05, 2024 Patient is seen and examined at bedside. Telemetry does not show any arrhy thmias. Hemodynamically stable. Regular pulses, distant heart sounds, diminished breath sounds bilaterally with no significant crackles or rhonchi. No significant swelling bilateral extremity. No signs of bleeding Right 2023 Patient is seen and examined at bedside this a.m. She is hemodynamically stable. She denies any lightheadedness or dizziness. She does not have any significant bilateral lower extremity edema. She does not have elevated JVD. Regular pulses, distant heart sound, diminished air entry. Patient does have incentive spirometer at the bedside which she is using intermittently. Assessment Severe triple-vessel CAD as described above Status post CABG as described above Multiple comorbid conditions including hypertension and dyslipidemia and smoking and diabetes Plan Continue the current medical regimen Continue monitor the kidney function and electrolytes and hemoglobin Follow-up with the patient Objective - Vital Signs Vital signs: Vital Signs Temp 98 F 01/06/24 16:00 Pulse 70 01/06/24 16:38 Resp 18 01/06/24 16:00 BP 153/65 01/06/24 16:00 Pulse Ox 92 L 01/06/24 16:00 FiO2 40 12/31/23 18:01 Intake & Output 01/06/24 01/06/24 01/07/24 06:59 18:59 06:59 Intake Total 420 620 Output Total 400 300 Balance 20 320 Weight 81.4 kg Intake: IV 20 20 Invasive Line 6 20 20 Oral 400 600 Output: Urine 400 300 Other: Voiding Method Toilet Toilet Diaper Diaper Incontinent Incontinent # Voids 1 2 ABP, PAP, CO, CI - Last Documented Arterial Blood Pressure 115/39 Pulmonary Artery Pressure 23/3 Cardiac Output 5.7 Cardiac Index 3.3 - Labs CBC & Chem 7: 01/06/24 06:08 01/06/24 06:08 Labs: Abnormal Lab Results - Last 24 Hours (Table) 01/05/24 01/06/24 01/06/24 Range/Units 20:01 06:08 06:08 RBC 3.03 L (3.80-5.40) m/uL Hgb 8.3 L D (11.4-16.0) gm/dL Hct 26.5 L (34.0-46.0) % RDW 16.4 H (11.5-15.5) % Sodium 132 L (137-145) mmol/L BUN 40 H (7-17) mg/dL POC Glucose (mg/dL) 67 L (70-110) mg/dL 01/06/24 Range/Units 16:36 RBC (3.80-5.40) m/uL Hgb (11.4-16.0) gm/dL Hct (34.0-46.0) % RDW (11.5-15.5) % Sodium (137-145) mmol/L BUN (7-17) mg/dL POC Glucose (mg/dL) 124 H (70-110) mg/dL
[2024-01-06 20:20] LABS: Glucose,Whole Blood 211 mg/dL (70-110)
[2024-01-07 06:08] LABS: Glucose,Whole Blood 168 mg/dL (70-110)
--- NOTE | 2024-01-07 08:04 | XR ---
EXAMINATION TYPE: XR chest 2V DATE OF EXAM: 01/07/2024 COMPARISON: 01/06/2024 HISTORY: post cardiac surgery TECHNIQUE: Frontal and lateral views of the chest are obtained. FINDINGS: Scattered senescent parenchymal changes noted. Hyperinflation compatible with COPD. Persistent but improving pulmonary venous congestion with small effusions and left basilar compressiv e atelectasis. Postoperative changes of CABG. Heart size is stable. Mediastinal structures are stable and grossly unremarkable. No evidence for hilar prominence. Degenerative changes dorsal spine. IMPRESSION: 1. Persistent but improving pulmonary venous congestion with small effusions and left basilar [place] sive atelectasis. Postoperative changes of CABG.
--- NOTE | 2024-01-07 08:17 | P.PN ---
Subjective Progress Note Date: 01/07/24 Principal diagnosis: Multivessel coronary artery disease. Previous medical history of hypertension, hyperlipidemia, insulin-dependent diabetes mellitus, nonalcoholic liver cirrhos is with a preoperative MELD score of 8, chronic ongoing tobacco dependence, mild COPD, remote history of pneumonia, chronic anemia and thrombocytopenia, and family history of coronary artery disease. POD #7 off pump coronary artery bypass grafting x 3. Left internal thoracic artery (in-situ) to left anterior descending coronary artery, reverse saphenous vein from aorta to obtuse marginal artery #1, reverse saphenous vein from aorta to distal coronary artery, left atrial appendage ligation with #35mm AtriClip, endoscopic bilateral greater saphenous vein harvest, graft flow measurements using the [employer] flow meter system, intraoperative transesophageal echocardiogram completed by anesthesia. Postoperative acute blood loss anemia and thrombocytopenia, expected given hemodilution and preoperative anemia and thrombocytopenia. The patient was seen and examined sitting up in recliner on the cardiac stepdown unit in no acute distress. She states expected postsurgical pain is controlled on current medication regimen, denies shortness of breath. She has been ambulatory in the hallway with assistance. She has showered. Remains in sinus rhythm, hemodynamically stable. She has been evaluated for inpatient rehab and is awaiting insurance authorization. She did indicate that she is feeling good enough that if insurance declines authorization she feels she could go home with home care. No other new concerns. Objective - Vital Signs Vital signs: Vital Signs Temp 98.7 F 01/07/24 03:10 Pulse 72 01/07/24 03:10 Resp 18 01/07/24 03:10 BP 137/73 01/07/24 03:10 Pulse Ox 92 L 01/07/24 03:10 FiO2 40 12/31/23 18:01 Intake & Output 01/06/24 01/07/24 01/07/24 18:59 06:59 18:59 Intake Total 620 260 Output Total 300 300 Balance 320 -40 Weight 80.9 kg Intake: IV 20 20 Invasive Line 6 20 20 Oral 600 240 Output: Urine 300 300 Other: Voiding Method Toilet Toilet Diaper Diaper Incontinent Incontinent # Voids 2 ABP, PAP, CO, CI - Last Documented Arterial Blood Pressure 115/39 Pulmonary Artery Pressure 23/3 Cardiac Output 5.7 Cardiac Index 3.3 - Exam CONSTITUTIONAL: Appears comfortable, cooperative, no acute distress RESPIRATORY: Lungs sounds diminished bilaterally. Respirations even, nonlabored. Currently on room air with oxygen saturation 92%. Able to achieve 1000 mL on incentive spirometry. Strong dry cough. CARDIOVASCULAR: S1, S2 present. Regular rate and rhythm, sinus rhythm on telemetry. Sternum stable. Palpable peripheral pulses bilaterally. No edema present. No calf pain or tenderness noted. Heart hugger in place with patient demonstrating appropriate use. Antiembolism stockings, SCDs present. GASTROINTESTINAL: Abdomen soft, nontender, nondistended. Active bowel sounds present 4 quadrants. Tolerating diet. Positive bowel movement 01/04 GENITOURINARY: Continues to void INTEGUMENTARY: Skin is warm and dry with evidence of good perfusion. Anterior chest incision well approximated. Bilateral lower extremity EVH sites well approximated without redness or drainage, ecchymosis present as expected NEUROLOGIC: Cranial nerves II through XII intact MUSKULOSKELETAL: Able to move all extremities, strength equal bilaterally, gait normal PSYCHIATRIC: Alert and oriented to person place and time, appropriate affect, i ntact judgment and insight - Allied health notes Allied health notes reviewed: nursing - Labs CBC & Chem 7: 01/06/24 06:08 01/06/24 06:08 Labs: Abnormal Lab Results - Last 24 Hours (Table) 01/06/24 01/06/24 01/07/24 Range/Units 16:36 20:09 05:58 POC Glucose (mg/dL) 124 H 211 H 168 H (70-110) mg/dL - Imaging and Cardiology Chest x-ray: image reviewed Assessment and Plan Assessment: Multivessel coronary artery disease, status post three-vessel off-pump CABG History of hypertension Hyperlipidemia, treated, cholesterol 149, LDL 82 Insulin-dependent diabetes mellitus, preoperative hemoglobin A1c 9% Nonalcoholic liver cirrhosis with a preoperative MELD score of 8, Child Moreau score 6, class A Chronic ongoing tobacco dependence Mild COPD, preoperative FEV1 60% of predicted Remote history of pneumonia Chronic anemia and thrombocytopenia Family history of coronary artery disease Postoperative acute blood loss anemia and thrombocytopenia, expected Plan: Continue to maximize medical therapy with aspirin, statin, Plavix, beta-yashira Continue amiodarone for A-fib prophylaxis, no A-fib has been reported, remains in sinus rhythm Encourage incentive spirometry use 10 times every hour while awake, bronchodilators per pulmonology Increase activity, ambulate as tolerated. PT/OT/cardiac rehab following Will monitor daily labs and x-rays, electrolyte replacement per protocol GI/DVT prophylaxis Insulin management per internal medicine Pain control with current medication regimen Shower daily Continue to monitor and record strict accurate intake and output Daily weights Discharge planning in progress, anticipate discharge to [facility] inpatient rehab when insurance authorization obtained If insurance declines paying for IPR patient will be discharged to home with home care More recommendations to follow
[2024-01-07 08:28] VITALS: TEMP 98.5
[2024-01-07] MEDS: carvediloL 3.125 MG TAB PO STA (08:29)
[2024-01-07 09:12] LABS: Anisocytosis Slight; HCT 27.4 % (34.0-46.0); HGB 8.3 gm/dL (11.4-16.0); Hypochromasia Marked; MCH 27.1 pg (25.0-35.0); MCHC 30.2 g/dL (31.0-37.0); MCV 89.6 fL (80.0-100.0); Mean Platelet Volume 9.7; Platelet Count 168 k/uL (150-450); RBC 3.06 m/uL (3.80-5.40); RDW 16.6 % (11.5-15.5); WBC 10.3 k/uL (3.8-10.6)
[2024-01-07 09:25] LABS: African American GFR (CKD) 86 (>60 ml/min/1.73 sqM); Anion Gap 8 mmol/L; Blood Urea Nitrogen 27 mg/dL (7-17); Calcium 8.3 mg/dL (8.4-10.2); Carbon Dioxide 22 mmol/L (22-30); Chloride 105 mmol/L (98-107); Glucose 257 mg/dL (74-99); Magnesium 1.7 mg/dL (1.6-2.3); Non-African American GFR(CKD) 74 (>60 ml/min/1.73 sqM); Potassium 4.6 mmol/L (3.5-5.1); Sodium 135 mmol/L (137-145)
[2024-01-07] MEDS: INSULIN DETEMIR (LEVEMIR) 100 UNIT/ML SYR SQ STA (09:38)
[2024-01-07 11:26] LABS: Glucose,Whole Blood 234 mg/dL (70-110)
[2024-01-07] MEDS: FUROSEMIDE 10 MG/ML 2 ML VIAL IV ONE (11:35)
[2024-01-07] MEDS: MAGNESIUM OXIDE 400 MG TAB PO SCH (11:38)
--- NOTE | 2024-01-07 13:03 | P.PN ---
Subjective Progress Note Date: 01/07/24 This is a 78-year-old female patient who was diagnosed recently with severe symptomatic triple-vessel coronary artery disease with anatomy favoring surgical revascularization. She was admitted to the hospital yesterday and she underwent CABG x 3 with GARCIA to LAD and SVG to first obtuse marginal branch and SVG to RCA. This is postoperation day #1. Currently the patient is extubated. She seems to be stable from the cardiac standpoint of view and not requiring any vasopressors at this point. As [id number] she is hypertensive and currently she is on Cleviprex which is in process of being weaned. Hemoglobin is stable. Electrolytes are within normal limits. Kidney function is stable. Beside that the chest x-ray was reviewed and seems to be somewhat wet. Her urine output has been marginal. I am going to give the patient 20 mg of Lasix IV once. Will continue monitor the kidney function and electrolytes and continue monitor the hemoglobin and chest x-ray as well as well as a urine output. Beside that she is on dual antiplatelet therapy along with intermediate intensity statin. We will consider increasing the statin intensity to hide down the line. The examination is remarkable for stable vital signs with somewhat elevated blood pressure as well as regular rate and rhythm with a distant heart sounds and diminished breathing sounds bilaterally no edema was noted in the lower extremities January 02, 2024 The patient was seen and evaluated this morning. He has been maintaining normal sinus mechanism and she remains hemodynamically stable but urine output has been marginal and I reviewed the chest x-ray which showed small bilateral pleural effusion versus atelectasis. With that being said I am going to get the patient 20 mg of Lasix IV and follow-up with her. Meanwhile continue the current medical regimen. Examination is remarkable for regular rhythm with distant hea rt sounds and diminished breathing sounds bilaterally and no edema was noted January 03, 2024 The patient was seen and evaluated this morning. She remains a stable. The pressure appears to be better overall. BUN and creatinine are slightly worse today. She was started on dopamine and her urine output has been definitely better. Otherwise the chest x-ray seems to be also slightly better but the examination is remarkable for regular rhythm with a distant heart sounds and diminished breathing sounds bilaterally. January 04, 2024 Patient is seen and examined at bedside. Patient has overall showing slow clinical improvement. Denies any lightheadedness dizziness. Telemetry does not show any arrhythmias January 05, 2024 Patient is seen and examined at bedside. Telemetry does not show any arrhy thmias. Hemodynamically stable. Regular pulses, distant heart sounds, diminished breath sounds bilaterally with no significant crackles or rhonchi. No significant swelling bilateral extremity. No signs of bleeding January 06 2024 Patient is seen and examined at bedside this a.m. She is hemodynamically stable. She denies any lightheadedness or dizziness. She does not have any significant bilateral lower extremity edema. She does not have elevated JVD. Regular pulses, distant heart sound, diminished air entry. Patient does have incentive spirometer at the bedside which she is using intermittently. January 07, 2024 Patient is seen and examined at bedside this a.m. Patient is doing well. Hemodynamically stable. BP 124/74, heart rate 67 bpm, maintain sinus rhythm, no concerns of atrial fibrillation telemetry. Assessment Severe triple-vessel CAD as described above Status post CABG as described above Multiple comorbid conditions including hypertension and dyslipidemia and smoking and diabetes Plan Continue current medications aspirin, Plavix, atorvastatin, Coreg Continue iron supplementation Consider SGLT2 to manage patient's diabetes better Patient is awaiting approval from insurance for being sent to [facility] rehab Objective - Vital Signs Vital signs: Vital Signs Temp 98.5 F 01/07/24 08:27 Pulse 60 01/07/24 11:33 Resp 16 01/07/24 11:33 BP 124/58 01/07/24 11:33 Pulse Ox 95 01/07/24 11:33 FiO2 40 12/31/23 18:01 Intake & Output 01/06/24 01/07/24 01/07/24 18:59 06:59 18:59 Intake Total 620 260 250 Output Total 300 300 100 Balance 320 -40 150 Weight 80.9 kg Intake: IV 20 20 10 Invasive Line 6 20 20 10 Oral 600 240 240 Output: Urine 300 300 100 Other: Voiding Method Toilet Toilet Toilet Diaper Diaper Diaper Incontinent Incontinent Incontinent # Voids 2 1 ABP, PAP, CO, CI - Last Documented Arterial Blood Pressure 115/39 Pulmonary Artery Pressure 23/3 Cardiac Output 5.7 Cardiac Index 3.3 - Labs CBC & Chem 7: 01/07/24 09:01 01/07/24 09:01 Labs: Abnormal Lab Results - Last 24 Hours (Table) 01/06/24 01/06/24 01/07/24 Range/Units 16:36 20:09 05:58 RBC (3.80-5.40) m/uL Hgb (11.4-16.0) gm/dL Hct (34.0-46.0) % MCHC (31.0-37.0) g/dL RDW (11.5-15.5) % Sodium (137-145) mmol/L BUN (7-17) mg/dL Glucose (74-99) mg/dL POC Glucose (mg/dL) 124 H 211 H 168 H (70-110) mg/dL Calcium (8.4-10.2) mg/dL 01/07/24 01/07/24 01/07/24 Range/Units 09:01 09:01 11:24 RBC 3.06 L (3.80-5.40) m/uL Hgb 8.3 L (11.4-16.0) gm/dL Hct 27.4 L (34.0-46.0) % MCHC 30.2 L (31.0-37.0) g/dL RDW 16.6 H (11.5-15.5) % Sodium 135 L (137-145) mmol/L BUN 27 H (7-17) mg/dL Glucose 257 H (74-99) mg/dL POC Glucose (mg/dL) 234 H (70-110) mg/dL Calcium 8.3 L (8.4-10.2) mg/dL
--- NOTE | 2024-01-07 14:25 | P.PN ---
Subjective Progress Note Date: 01/07/24 Subjective: Patient seen and examined at bedside. Oral intake improving. Denies any significant chest pain, shortness of breath, abdominal pain. Pertinent positives and negatives as discussed above, a complete review of systems was performed and all other systems are negative. Vitals Signs Reviewed. General: Nontoxic, no distress, appears at stated age, obese Derm: Warm, dry, chest dressing clean, dry, intact, bilateral medial thigh ecchymosis Head: Atraumatic, normocephalic, symmetric Eyes: EOMI, no lid lag, anicteric sclera Mouth: No lip lesion, mucus membranes moist Cardiovascular: S1S2 reg, no murmur Lungs: CTA bilateral, no rhonchi, no rales, no accessory muscle use Abdominal: Soft, nontender to palpation, no guarding, no appreciable organomegaly Ext: No gross muscle atrophy, no edema, no contractures Neuro: CN II-XI grossly intact, no focal neuro deficits Psych: Alert, oriented, appropriate affect Data Reviewed Today: Pertinent Labs:WBC 10.3, hemoglobin 8.3, sodium 135, creatinine 0.78, glucose range between 1 68-2 57, Mg 1.7 Imaging: Chest x-ray independently interpreted, shows postoperative changes, stable compared to yesterday Assessment and Plan: Insulin-dependent diabetes, A1c 8.8 Hypoglycemia resolved Multivessel CAD status post three-vessel off-pump CABG Acute blood loss anemia, anticipated outcome of surgery Hyponatremia, resolved Hypertension Dyslipidemia GERD LOPEZ cirrhosis Nicotine dependence Restless leg syndrome Neuropathy -Levemir increased to 40 units daily -Continue insulin aspart sliding scale ACHS, monitor for hypoglycemia -Insulin regimen may need to be slowly titrated up as oral intake improves -Cardiology note reviewed-agree with cardiology that patient can be considered for SGLT2 inhibitor if cardiothoracic surgery agrees -Cardiothoracic surgery note reviewed, carvedilol increased to 6.25 twice daily -Pulmonology following, on bronchodilators -Continue aspirin 325 daily, atorvastatin 40 mg daily, carvedilol 3.125 twice d aily, Plavix 75 daily, amiodarone 200 mg twice daily -Continue gabapentin 300 mg nightly, pramipexole 1 mg nightly, esomeprazole 40mg daily, Flexeril 10 nightly Subcu heparin for DVT prophylaxis Thank you for allowing us to participate in the care of this pleasant patient. Do not hesitate to contact us with questions. Someone can be reached from the [facility] hospitalist group all hours of the day at [phone] or via perfect serve. Objective - Vital Signs Vital signs: Vital Signs Temp 98.5 F 01/07/24 08:27 Pulse 60 01/07/24 11:33 Resp 16 01/07/24 11:33 BP 124/58 01/07/24 11:33 Pulse Ox 95 01/07/24 11:33 FiO2 40 12/31/23 18:01 Intake & Output 01/06/24 01/07/24 01/07/24 18:59 06:59 18:59 Intake Total 620 260 490 Output Total 300 300 100 Balance 320 -40 390 Weight 80.9 kg Intake: IV 20 20 10 Invasive Line 6 20 20 10 Oral 600 240 480 Output: Urine 300 300 100 Other: Voiding Method Toilet Toilet Toilet Diaper Diaper Diaper Incontinent Incontinent Incontinent # Voids 2 1 ABP, PAP, CO, CI - Last Documented Arterial Blood Pressure 115/39 Pulmonary Artery Pressure 23/3 Cardiac Output 5.7 Cardiac Index 3.3 - Labs CBC & Chem 7: 01/07/24 09:01 01/07/24 09:01 Labs: Abnormal Lab Results - Last 24 Hours (Table) 01/06/24 01/06/24 01/07/24 Range/Units 16:36 20:09 05:58 RBC (3.80-5.40) m/uL Hgb (11.4-16.0) gm/dL Hct (34.0-46.0) % MCHC (31.0-37.0) g/dL RDW (11.5-15.5) % Sodium (137-145) mmol/L BUN (7-17) mg/dL Glucose (74-99) mg/dL POC Glucose (mg/dL) 124 H 211 H 168 H (70-110) mg/dL Calcium (8.4-10.2) mg/dL 01/07/24 01/07/24 01/07/24 Range/Units 09:01 09:01 11:24 RBC 3.06 L (3.80-5.40) m/uL Hgb 8.3 L (11.4-16.0) gm/dL Hct 27.4 L (34.0-46.0) % MCHC 30.2 L (31.0-37.0) g/dL RDW 16.6 H (11.5-15.5) % Sodium 135 L (137-145) mmol/L BUN 27 H (7-17) mg/dL Glucose 257 H (74-99) mg/dL POC Glucose (mg/dL) 234 H (70-110) mg/dL Calcium 8.3 L (8.4-10.2) mg/dL
--- NOTE | 2024-01-07 14:38 | P.PN ---
Subjective Progress Note Date: 01/07/24 Principal diagnosis: POD # 7 off Pump Coronary Artery Bypass Grafting x 3. Left internal thoracic artery (in-situ) to left anterior descending coronary artery, reverse saphenous vein from aorta to obtuse marginal artery #1, reverse saphenous vein from aorta to distal coronary artery. This is a 78-year-old female patient with a known history of chronic tobacco dependence, chronic anemia, nonalcoholic liver cirrhosis, insulin-dependent diabetes mellitus, hyperlipidemia, hypertension and recently found to have triple-vessel coronary artery disease. She was brought in electively today and had undergone an off-pump coronary artery bypass grafting x 3 with a GARCIA to the LAD, reverse saphenous vein to the obtuse marginal artery 1, reverse saphenous grain from to the distal right coronary artery and left atrial appendage ligation. She is seen postoperatively in the intensive care unit. She is intubated on the mechanical ventilator currently on assist-control mode with a rate of 14, tidal volume 350, FiO2 50% and a PEEP of 10. Blood gases revealed a PaO2 of 312, pCO2 45 and a pH of 7.35 and 100% FiO2. She is sedated on propofol at 50 mcg/kg/min. She is on amiodarone drip at 1 mg/min. Insulin drip at 0.5 units an hour. Nitroglycerin drip at 10 mcg/min. Normal saline at 50 MLS per hour. Cardiac output 3.8. Cardiac index 2.2. PA pressures 27/12. CVP 6. Afebrile. Hemodynamically stable. Chest x-ray revealed bilateral consolidation and pleural effusion. No sizable pneumothorax. Right left and mediastinal chest tubes in place. White count 7.6. Hemoglobin 8.0. Platelets 85,000. INR 1.5. Sodium 136. Potassium 4.1. Bicarb 24. BUN 9. Creatinine 0.55. Glucose 117. Albumin 2.6. She is continued on bronchodilators. Heparin for DVT prophylaxis. The patient is seen today January 01, 2024 in follow-up in the intensive care unit. She is currently sitting up in a chair. Awake and alert in no acute distress. She is maintaining good O2 saturations in the 90s on 2 L/min per nasal cannula. She remains on normal saline at 50 MLS per hour. Nitroglycerin drip at 5 mcg/min. Cleviprex at 6 mg an hour. Amiodarone at 0.5 mg/min. Insulin drip at 3 units/h. Cardiac output 5.7. Cardiac index 3.3. PA pressure 25/7. CVP 2. Afebrile. Hemodynamically stable. Chest x-ray reveals increased pulmonary venous congestion and increased patchy infiltrate in the left lower lobe. Mediastinal, left and right chest tubes remain in place. She is encouraged regarding the increased use of the incentive spirometer. White count 13.8. Hemoglobin 9.0. Platelets 122. Sodium 132. Potassium 3.8. Bicarb 20. BUN 10. Creatinine 0.57. Glucose 120. She is continued on DuoNeb inhalations. Heparin for DVT prophylaxis. The patient is seen today January 02, 2024 in follow-up in the intensive care unit. Postoperative day #2. She is awake and alert in no acute distress. Sitting up in a chair at the bedside. Feeling a bit better today compared to yesterday. She is maintaining good O2 saturations in the 90s on 2 L/min per nasal cannula. She has normal saline at 30 MLS per hour. Continues on an insulin drip at 2.5 units/h. She is continued on DuoNeb inhalations. Heparin for DVT prophylaxis. Working well with the incentive spirometer. Chest x-ray shows no acute pulmonary process. Chest tubes remain in place. White count 10.2. Hemoglobin 7.8. Platelets 84,000. Sodium 130. Potassium 4.3. Bicarb 20. BUN 19. Creatinine 0.84. Glucose 117. The patient is seen today January 03, 2024 in follow-up in the intensive care unit. Postoperative day #3. She is sitting up in a chair at the bedside. Awake and alert in no acute distress. Denies any worsening shortness of breath, cough or congestion. Only pulling approximately 500 mL on her incentive spirometer. Her urine output has been marginal. She has been initiated on a dopamine drip at 3 mcg/kg/min. Normal saline at KVO. She is maintaining O2 saturations in the 90s on 4 L/min per nasal cannula. Chest x-ray shows interval removal of the right CVP catheter and bilateral chest tubes. No pneumothorax. Small to moderate bilateral pleural effusions. White count 10.1. Hemoglobin 7.2. Platelets 104. Sodium 130. Potassium 4.3. Bicarb 17. BUN 34. Creatinine 1.11. Glucose 185. She remains on bronchodilators. Heparin for DVT prophylaxis. Patient was seen and evaluated on 01/04/2024, she is now postoperative day #4. Patient remains on 4 L nasal cannula, she is getting a bit stronger, remains generally weak, about 1000 cc on her incentive spirometry, pain is fairly under control. O2 saturation 94% on 4 L nasal cannula. Remains on dopamine at renal perfusion dose at 3 mcg/kg/min her urine output is excellent over the last 8 hours. Chest x-ray showed mostly atelectasis at the bases and smal left-sided pleural effusion with atelectasis WBC count is 12.7 hemoglobin 7.7 electrolytes are normal BUN is 46 creatinine 1.14 Evaluated today on 01/05/24, patient is now postoperative day #5. Patient is now on room air, does not seem to be in any distress, O2 saturation 94%, doing well with incentive spirometry, she is in sinus rhythm, has been ambulating in the cardiac stepdown unit hallway chest x-ray continues to show small pleural effusions and atelectasis. Hemoglobin today is 6.7 WBC count is 8.2 electrolytes are normal BUN 61 creatinine 1.03 Patient was seen today on 01/06/2024 operative day #6 continues to do well, relatively asymptomatic, discharge planning is in progress to possible inpatient rehab. Reviewed her chest x-ray, reviewed her labs, chest x-ray is showing improvement in her pulmonary vascular congestion and effusions as well as atelectasis. CBC is relatively normal hemoglobin is 8.3 basic metabolic profile is normal Reevaluated today on 01/07/2024 patient is doing great, waiting for transfer to rehab. Pulmonary anderson asymptomatic, no cough no wheezing no shortness of breath, chest x-ray is showing minimal atelectasis, no evidence of pneumonia and no evidence of congestive heart failure Objective - Vital Signs Vital signs: Vital Signs Temp 98.5 F 01/07/24 08:27 Pulse 60 01/07/24 11:33 Resp 16 01/07/24 11:33 BP 124/58 01/07/24 11:33 Pulse Ox 95 01/07/24 11:33 FiO2 40 12/31/23 18:01 Intake & Output 01/06/24 01/07/24 01/07/24 18:59 06:59 18:59 Intake Total 620 260 490 Output Total 300 300 100 Balance 320 -40 390 Weight 80.9 kg Intake: IV 20 20 10 Invasive Line 6 20 20 10 Oral 600 240 480 Output: Urine 300 300 100 Other: Voiding Method Toilet Toilet Toilet Diaper Diaper Diaper Incontinent Incontinent Incontinent # Voids 2 1 ABP, PAP, CO, CI - Last Documented Arterial Blood Pressure 115/39 Pulmonary Artery Pressure 23/3 Cardiac Output 5.7 Cardiac Index 3.3 - Exam General: Revealed a 78-year-old female in no distress, on room air HEENT: Neck is supple, no JVD, no lymphadenopathy. RESPIRATORY: Clear bilaterally no crackles rhonchi or wheeze CARDIOVASCULAR: Regular rhythm and rate. S1 and S2 present, negative for S3, gallop or murmur. Abdomen: Soft nontender no megaly no rebound no guarding INTEGUMENTARY: Skin is warm and dry with no evidence of clubbing or cyanosis. NEUROLOGIC: Alert and oriented x 3 no gross focal deficit MUSKULOSKELETAL: No clubbing edema or cyanosis PSYCHIATRIC: Normal mood affect and no mental status examination - Labs CBC & Chem 7: 01/07/24 09:01/07/24 09:01 Labs: Abnormal Lab Results - Last 24 Hours (Table) 01/06/24 01/06/24 01/07/24 Range/Units 16:36 20:09 05:58 RBC (3.80-5.40) m/uL Hgb (11.4-16.0) gm/dL Hct (34.0-46.0) % MCHC (31.0-37.0) g/dL RDW (11.5-15.5) % Sodium (137-145) mmol/L BUN (7-17) mg/dL Glucose (74-99) mg/dL POC Glucose (mg/dL) 124 H 211 H 168 H (70-110) mg/dL Calcium (8.4-10.2) mg/dL 01/07/24 01/07/24 01/07/24 Range/Units 09:01 09:01 11:24 RBC 3.06 L (3.80-5.40) m/uL Hgb 8.3 L (11.4-16.0) gm/dL Hct 27.4 L (34.0-46.0) % MCHC 30.2 L (31.0-37.0) g/dL RDW 16.6 H (11.5-15.5) % Sodium 135 L (137-145) mmol/L BUN 27 H (7-17) mg/dL Glucose 257 H (74-99) mg/dL POC Glucose (mg/dL) 234 H (70-110) mg/dL Calcium 8.3 L (8.4-10.2) mg/dL Assessment and Plan Assessment: Impression: Triple-vessel coronary artery disease, status post CABG postoperative day #7 Benign essential hypertension Dyslipidemia Insulin-dependent diabetes, hemoglobin A1c 9% Nonalcoholic liver cirrhosis Chronic ongoing tobacco dependence Chronic anemia, with a preoperative hemoglobin of 10.4 Chronic thrombocytopenia Family history of coronary artery disease Postoperative atelectasis, expected, improving based on chest x-ray today. Recommendation: Awaiting placement patient cleared for discharge by many consultants Continue maximal medical therapy including Plavix beta-yashira aspirin and statins Continue to ambulate Continue to encourage incentive spirometry Continue GI and DVT prophylaxis Will continue to follow Time with Patient: Less than 30
--- NOTE | 2024-01-07 14:54 | P.DS ---
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 Do you want consulting provider notified?: Yes 01/04/24 09:45 Consult Physician Routine Consulting Provider: Reyes Joshua Consult Reason/Comments: Evaluation for inpatient rehab Do you want consulting provider notified?: Yes Primary care physician: Giovanni Hanks [facility] Hospital Course: FINAL DIAGNOSIS: Multivessel coronary artery disease, status post three-vessel off-pump CABG History of hypertension Hyperlipidemia, treated, cholesterol 149, LDL 82 Insulin-dependent diabetes mellitus, preoperative hemoglobin A1c 9% Nonalcoholic liver cirrhosis with a preoperative MELD score of 8, Child Moreau score 6, class A Chronic ongoing tobacco dependence Mild COPD, preoperative FEV1 60% of predicted Remote history of pneumonia Chronic anemia and thrombocytopenia Family history of coronary artery disease Postoperative acute blood loss anemia and thrombocytopenia, expected PRINCIPAL PROCEDURE: Off pump coronary artery bypass grafting x 3, left internal thoracic artery (in- situ) to left anterior descending coronary artery, reverse saphenous vein from aorta to obtuse marginal artery #1, reverse saphenous vein from aorta to distal coronary artery Left atrial appendage ligation with #35mm AtriClip Endoscopic bilateral greater saphenous vein harvest Graft flow measurements using the Medi-stim flow meter system Intraoperative transesophageal echocardiogram completed by anesthesia HISTORY OF PRESENT ILLNESS: This is a 78-year-old female who follows outpatient with Dr. Hanks for primary care and Dr. Murray for cardiology. She was admitted to [facility] in August for hypertensive urgency. The patient denied chest pain but had been having shortness of breath for years although she continued to smoke. She had a myocardial perfusion stress test which was abnormal with reversability anteriorly. She did have a transthoracic echo completed at [facility] 10/28/23 demonstrating normal LV systolic function with EF 55-60%, mild aortic stenosis, mild to moderate mitral regurgitation, and mild tricuspid regurgitation with moderate pulmonary hypertension. Due to abnormal stress test she was recommended to undergo heart catheterization which was completed by Dr. Murray and which demonstrated moderate proximal and mid RCA disease with severe distal disease, mid LAD 70-80% stenosis, and severe proximal circumflex and second obtuse marginal disease. Consultation was placed to cardiothoracic surgery for surgical revascularization recommendations. She was seen by Dr. Null from cardiothoracic surgery and was recommended to undergo elective surgical revascularization. The usual perioperative course was discussed in detail with the patient and her family, all risks and benefits were explained, all questions were answered, and consent was obtained to proceed with surgery. The patient was discharged to home on maximal medical therapy to return as an outpatient for surgery at the earliest possible date, she was encouraged complete smoking cessation prior to surgery. HOSPITAL COURSE: The patient was brought to the hospital on 12/31/23, taken to the preoperative area, prepared in the usual fashion, and subsequently taken to the operating room where Dr. Null performed three-vessel off-pump CABG. Upon completion of surgery the patient was transferred to the cardiovascular intensive care unit where she was recovered and monitored hemodynamically. She was extubated, all lines, tubes, and drips were discontinued when appropriate, and she was transferred to 3 S. cardiac stepdown unit for further monitoring and rehabilitation. Her oxygen was titrated down, she continued to work with physical and occupational therapy, she was tolerating oral diet, her pain was controlled, and she was ready to be discharged to home with home care on postoperative day #7. She received written and verbal instruction regarding her medications, activity restrictions, signs and symptoms requiring physician notification, and follow-up appointments. Patient Condition at Discharge: Stable Plan - Discharge Summary Discharge Rx Participant: No New Discharge Prescriptions: New Amiodarone [Cordarone] 200 mg PO BID #14 tab Ascorbic Acid [Vitamin C] 500 mg PO 1200 #7 tab carvediloL [Coreg] 6.25 mg PO BID-W/MEALS #60 tab Ferrous Sulfate [Iron (65 MG Elemental)] 325 mg PO W/LUNCH #7 tab Clopidogrel [Plavix] 75 mg PO DAILY #30 tab Sennosides-Docusate Sodium [Senokot-S] 2 each PO HS #14 tab Budesonide-Formot 160-4.5 Mcg [Symbicort 160-4.5 Mcg Inhaler] 2 puff INHALATION RT-BID #1 each Continue Esomeprazole Magnesium [NexIUM] 40 mg PO QAM Pramipexole [Mirapex] 1 mg PO HS Gabapentin 300 mg PO HS Aspirin [Adult Low Dose Aspirin EC] 81 mg PO DAILY Insulin Glargine [Lantus Vial] 60 unit SQ HS HYDROcodone/APAP 10-325MG [Amawalk 10-325] 1 tab PO Q6HR PRN 3 Days #12 tab PRN Reason: Pain Cyclobenzaprine [Flexeril] 10 mg PO HS Atorvastatin [Lipitor] 40 mg PO HS traZODone HCL [Desyrel] 50 mg PO HS Insulin Glargine [Lantus Vial] 79 unit SQ DAILY Discontinued Losartan [Cozaar] 25 mg PO HS carvediloL 25 mg PO BID amLODIPine BESYLATE [Amlodipine Besylate] 10 mg PO DAILY Nicotine 21Mg/24Hr Patch [Habitrol] 1 each TRANSDERM DAILY Discharge Medication List Esomeprazole Magnesium [NexIUM] 40 mg PO QAM 02/21/18 [History] HYDROcodone/APAP 10-325MG [Amawalk 10-325] 1 tab PO Q6HR PRN 3 Days #12 tab 02/19/21 [Rx] Cyclobenzaprine [Flexeril] 10 mg PO HS 07/15/21 [History] Pramipexole [Mirapex] 1 mg PO HS 10/15/21 [History] Atorvastatin [Lipitor] 40 mg PO HS 12/18/21 [History] Gabapentin 300 mg PO HS 12/18/21 [History] Aspirin [Adult Low Dose Aspirin EC] 81 mg PO DAILY 08/12/22 [History] traZODone HCL [Desyrel] 50 mg PO HS 11/26/23 [History] Insulin Glargine [Lantus Vial] 60 unit SQ HS 12/31/23 [History] Insulin Glargine [Lantus Vial] 79 unit SQ DAILY 12/31/23 [History] Amiodarone [Cordarone] 200 mg PO BID #14 tab 01/07/24 [Rx] Ascorbic Acid [Vitamin C] 500 mg PO 1200 #7 tab 01/07/24 [Rx] Budesonide-Formot 160-4.5 Mcg [Symbicort 160-4.5 Mcg Inhaler] 2 puff INHALATION RT-BID #1 each 01/07/24 [Rx] Clopidogrel [Plavix] 75 mg PO DAILY #30 tab 01/07/24 [Rx] Ferrous Sulfate [Iron (65 MG Elemental)] 325 mg PO W/LUNCH #7 tab 01/07/24 [Rx] Sennosides-Docusate Sodium [Senokot-S] 2 each PO HS #14 tab 01/07/24 [Rx] carvediloL [Coreg] 6.25 mg PO BID-W/MEALS #60 tab 01/07/24 [Rx] Follow up Appointment(s)/Referral(s): Melinda Mcgee NPC [Nurse Practitioner] - 01/14/24 1:30 pm (You will be seen in the surgeon's office behind the hospital in [facility], [address]. Office phone number is ) Rehab Madisyn HAWKINS,Cardiac [NON-STAFF] - 4 Weeks (You will receive a phone call in approximately 4-6 weeks for evaluation for cardiac rehab) Rip Murray MD [STAFF PHYSICIAN] - 01/20/24 3:45 pm Donald Faustin MD [STAFF PHYSICIAN] - 02/04/24 2:00 pm (Dr. Null's partner) Giovanni Hanks DO [Primary Care Provider] - 01/14/24 2:20 pm Erinn Santillan MD [STAFF PHYSICIAN] - 01/29/24 8:30 am [facility], [NON-STAFF] - 1-2 Days (You should be seen the day after discharge by home care nurse, then 2-3 times per week until you start cardiac r ehab) Ambulatory/Diagnostic Orders: Complete Blood Count w/diff [LAB.AMB] Time Frame: 3 Days, Location: None Selected Comprehensive Metabolic Panel [LAB.AMB] Time Frame: 3 Days, Location: None Selected Activity/Diet/Wound Care/Special Instructions: DISCHARGE INSTRUCTIONS: 1. No driving for 4 weeks, or until physician gives their ok. 2. The patient should sleep in their own bed, no medical bed needed. 3. Stairs are not an issue. If the bedroom is upstairs, it is advised that the patient go up at night and down in the morning for the first week. Go slowly, using handrail and take 1 step at a time. 4. BASHIR hose are to be worn for 30 days post surgery or until physician discontinues. 5. Heart hugger is to be worn 100% of the time until physician discontinues.(except when showering) 6. No lifting, pushing, or pulling more than 10 pounds for 12 weeks. The physician will advise of any restriction changes. 7. The patient is expected to continue the prescribed walking program. 8. Continue pain control per as needed orders. 9. Continue with incentive spirometry and splinting/heart hugger until otherwise directed by the physician. 10. Must shower daily using liquid antibacterial soap 11. Routine sternal incision care. No powders, lotions, ointments on incisions. No dressings are necessary on incisions unless they are draining. Dermabond tape is to remain on sternal incision until surgeon follow-up. 12. Please call surgeon/SWITCH FOREMAN for temp greater than 101 F or purulent drainage from incisions. 13. You should weigh yourself daily, record and bring log with you to follow up appointments. 14. All prescriptions given by surgeon for 30 days. Refills need to be filled through ranger aide/primary care physician. 15. A Red armband has been placed on the patient. It should be worn for 30 days post discharge from surgery and will be removed by the cardiac surgeons. If an ER visit is necessary, please make sure the number on the Red armband is called before going to ER. 16. You have been referred to and are expected to begin Cardiac Rehab in approximately 4-6 weeks. 17. Quitting smoking is the most important step you can take to improve your health. For additional information and assistance to quit smoking, please call the [place] tobacco quit line (9-051-MAPM-NOW/ ) or online: https://[email or web address] .gov/[facility]/bhbp-fi-qqrouip/chronicdiseases/tobacco/xzp-yl-fkcv-tobacco HOME HEALTH SERVICES TO PROVIDE: RN SKILLED HOME CARE SERVICES FOR POST-OP SURGICAL PATIENTS WITH THE FOLLOWING: Coronary Artery Bypass Surgery (CABG), Mitral Valve Replacement/Repair ( MVR), Aortic Valve Replacement/Repair (AVR) RN TO CONTINUE EDUCATION FROM ``ROAD TO A HEALTH HEART PATIENT EDUCATION MANUAL (GIVEN TO PATIENT IN THE HOSPITAL) MEDICATION RECONCILIATION WITH EDUCATION NEEDED ON FIRST HOME VISIT EMPHASIZE IMPORTANCE OF WEARING BREAST SUPPORT/HEART HUGGER ENCOURAGE USE OF INCENTIVE SPIROMETER 10 X EVERY HOUR WHILE AWAKE ENCOURAGE UTILIZATION OF LOWER EXTREMITY COMPRESSION STOCKINGS/BASHIR HOSE and ELEVATE LEGS ABOVE LEVEL OF HEART WHILE AT REST. ENCOURAGE AMBULATION 3-5x/day INCREASING TOLERATES, WHILE AVOIDING EXTREMES IN TEMPERATURE FREQUENCY: RN TO OPEN THE PATIENT WITHIN 24 HOURS OF DISCHARGE FROM THE HOSPITAL WITH TELEHEALTH INSTALLED AT [facility] [place], RN TO VISIT 2-3 X A WEEK FOR 4 WEEKS ESTABLISHED BY PATIENT NEEDS. LABORATORY: CBC, CMP TO BE DRAWN ON THE THIRD DAY HOME, (RAN STAT) FAX RESULTS TO [phone]. TELEHEALTH PARAMETERS: WEIGHT: NOTIFY MD OF WEIGHT GAIN OF 2 LBS IN 24 HOURS OR 5 LBS IN ONE WEEK HR: NOTIFY MD OF HR <55 BPM OR HR>100 BPM BP: NOTIFY MD IF BP <90/55 OR BP>140/100 O2 SAT: NOTIFY MD IF PO2<93% ON ROOM AIR SEND TELEHEALTH REPORT TO SECTION LEADER AND MACHINE SETTER AND CARDIOVASCULAR SURGEON THE FIRST WEEK OF CARE AND THEN BI-WEEKLY. PLEASE ADDITIONALLY COMMUNICATE ANY ABNORMALS AND NEW FINDINGS TO THE SURGEONS OFFICE. Discharge Disposition: HOME WITH HOME HEALTH SERVICES
[2024-01-07 16:01] VITALS: BP 140/89; RESP 17
[2024-01-07 16:13] LABS: Glucose,Whole Blood 84 mg/dL (70-110)
[2024-01-07 17:42] VITALS: PULSE 76
[2024-01-07] MEDS: carvediloL 6.25 MG TAB PO SCH (17:42)
[2024-01-08] MEDS ORDERED: INSULIN DETEMIR (LEVEMIR) 100 UNIT/ML SYR SQ SCH (07:00)
--- NOTE | 2024-01-09 19:14 | CDI ---
Documentation Clarification Form Date: 01/09/2024 06:53:57 PM From: Aliza Spicer Phone: Admit Date: 12/31/2023 05:38:00 AM Patient Name: Theresa Johnston Visit Number: [id number] Discharge Date: 01/07/2024 06:38:00 PM ATTENTION: The Clinical Documentation Specialists (CDI) and [facility] Coding Staff appreciate your assistance in clarifying documentation. Please respond to the clarification below the line at the bottom and electronically sign. The CDI & [facility] Coding staff will review the response and follow-up if needed. Please note: Queries are made part of the Legal Health Record. If you have any questions, please contact the author of this message via ITS. Doctor/Provider: Gonzalo Lomeli Your patient has the documented diagnosis: Unspecified CHF Past Medical History Notes No evidence ofcongestive heart failure Dr. Deepti Gray Progress Note 01/06 Clarification regarding the type of CHF is requested. History/Risk Factors: 78yo F, CAD sp CABG, HTN, HLD, IDDMII with hypoglycemia, LOPEZ, ABLA on chronic anemia, chronicthrombocytopenia, smoker Clinical Indicators: VS/Pulse OX: 96 Echo: 10/28/23 demonstrating normal LV systolic function with EF 55-60%, mildAS, mild to moderateMR, and mildTRwith moderatePHTN Chest X Ray: 12/30 The heart mildlyenlarged. Postoperativechanges ofCABG. 12/31 There is increasing pulmonaryvenous congestionand increased patchyinfiltrate about the LLL. Smalleffusionsare present. There is continuedcardiomegaly. Treatment: monitored In your professional opinion, can you please clarify the type of CHF if known? [ ] Chronic Systolic Heart Failure (reduced EF) [x ] Chronic Diastolic Heart Failure (preserved EF) [ ] Chronic Systolic & Diastolic Heart Failure [ ] Other, please specify [ ] Unable to determine (Template Last Revised: July 2020) LEAHD
--- NOTE | 2024-02-03 12:34 | CDI ---
Documentation Clarification Form Date: 02/03/2024 12:24:50 PM From: Aliza Spicer Phone: Admit Date: 12/31/2023 05:38:00 AM Patient Name: Theresa Johnston Visit Number: [id number] Discharge Date: 01/07/2024 06:38:00 PM ATTENTION: The Clinical Documentation Specialists (CDI) and [facility] Coding Staff appreciate your assistance in clarifying documentation. Please respond to the clarification below the line at the bottom and electronically sign. The CDI & [facility] Coding staff will review the response and follow-up if needed. Please note: Queries are made part of the Legal Health Record. If you have any questions, please contact the author of this message via ITS. Doctor/Provider: Maldonado Hadley Diabetes is documented with A1C 9.0. Additional specificity regarding the diabetes diagnosis is requested. History/Risk Factors: 78yo F, CAD sp CABG, HTN, HLD, CDHF, IDDMII with hypoglycemia, LOPEZ, ABLA on chronic anemia, chronic thrombocytopenia, smoker Clinical Indicators: Hemoglobin A1C 9% Glucose: 12/30 112-214 12/31 118-212 01/01 117-187 Treatment: Patient bloodglucosehas been acceptable with range being between 118 and 234. Will transition patient from insulin drip to SQ insulin At home she is taking total of 79 units of Lantus nightly and 60 units in the morning. Please clarify the type of diabetes, if known: [ X] Diabetes Type 2 with hyperglycemia [ ] Other, please specify [ ] Unable to Determine (Template Last Revised: August 2020) MTDD
== END 2024-01-07 18:38 | disposition home health service (06) | DRG 236 ==
LOC: 2ORMAIN 12-31 05:38 → 2SICU 12-31 12:14 → 3SCARD 01-04 15:54
PROVIDERS: ADMIT Thoracic Surgery (Cardiothoracic Vascular Surgery); ATTEND Thoracic Surgery (Cardiothoracic Vascular Surgery)
PROC: 06BP4ZZ Excision of Right Saphenous Vein, Percutaneous Endoscopic Approach (ICD-10-PCS; 2023-12-31)
PROC: B24BZZ4 Ultrasonography of Heart with Aorta, Transesophageal (ICD-10-PCS; 2023-12-31)
PROC: 02L70CK Occlusion of Left Atrial Appendage with Extraluminal Device, Open Approach (ICD-10-PCS; 2023-12-31)
PROC: 4A0305C Measurement of Arterial Flow, Coronary, Open Approach (ICD-10-PCS; 2023-12-31)
PROC: 02100ZC Bypass Coronary Artery, One Artery from Thoracic Artery, Open Approach (ICD-10-PCS; principal; 2023-12-31 08:00)
PROC: 021109W Bypass Coronary Artery, Two Arteries from Aorta with Autologous Venous Tissue, Open Approach (ICD-10-PCS; 2023-12-31 08:00)
PROC: 06BQ4ZZ Excision of Left Saphenous Vein, Percutaneous Endoscopic Approach (ICD-10-PCS; 2023-12-31 08:00)
PROC: 30233N1 Transfusion of Nonautologous Red Blood Cells into Peripheral Vein, Percutaneous Approach (ICD-10-PCS; 2024-01-05)
DX: I25.10 Atherosclerotic heart disease of native coronary artery without angina pectoris (principal); D62 Acute posthemorrhagic anemia; E87.1 Hypo-osmolality and hyponatremia; J98.11 Atelectasis; I50.32 Chronic diastolic (congestive) heart failure; D69.6 Thrombocytopenia, unspecified; I27.22 Pulmonary hypertension due to left heart disease; E11.649 Type 2 diabetes mellitus with hypoglycemia without coma; E11.40 Type 2 diabetes mellitus with diabetic neuropathy, unspecified; I11.0 Hypertensive heart disease with heart failure; J44.9 Chronic obstructive pulmonary disease, unspecified; Z79.4 Long term (current) use of insulin; E11.65 Type 2 diabetes mellitus with hyperglycemia; K75.81 Nonalcoholic steatohepatitis (NASH); G25.81 Restless legs syndrome; I08.3 Combined rheumatic disorders of mitral, aortic and tricuspid valves; E78.5 Hyperlipidemia, unspecified; K21.9 Gastro-esophageal reflux disease without esophagitis; G89.29 Other chronic pain; E83.42 Hypomagnesemia; R58 Hemorrhage, not elsewhere classified; R53.81 Other malaise; M54.9 Dorsalgia, unspecified; R33.9 Retention of urine, unspecified; Z87.891 Personal history of nicotine dependence; Z79.82 Long term (current) use of aspirin; Z82.49 Family history of ischemic heart disease and other diseases of the circulatory system; Z79.899 Other long term (current) drug therapy; Z88.5 Allergy status to narcotic agent; Z87.19 Personal history of other diseases of the digestive system; Z86.16 Personal history of COVID-19
CPT/HCPCS: 71045; 71046; 80048; 80053; 82330; 82565; 82805; 83036; 83735; 84132; 84520; 85025; 85027; 85610; 85730; 86850; 86900; 86901; 86920; 94640; 94760

== ENCOUNTER → 2024-08-19 | Outpatient (CLI) | payer MEDICARE ==
[2024-08-19 10:46] LABS: Basophils # (A) 0.08 X 10*3/uL (0.00-0.10); Basophils % (A) 1.1 %; Eosinophils # (A) 0.14 X 10*3/uL (0.04-0.35); Eosinophils % (A) 1.9 %; HCT 34.5 % (37.2-46.3); HGB 10.3 g/dL (12.0-15.0); Lymphocytes # (A) 1.82 X 10*3/uL (0.90-5.00); Lymphocytes % (A) 24.4 %; MCH 26.2 pg (27.0-32.0); MCHC 29.9 g/dL (32.0-37.0); MCV 87.8 FL (80.0-97.0); Mean Platelet Volume 10.8 FL (9.5-12.2); Monocytes # (A) 0.69 X 10*3/uL (0.20-1.00); Monocytes % (A) 9.2 %; NRBC Per 100 WBC 0 X 10*3/uL (0.00-0.01); Neutrophils # (A) 4.69 X 10*3/uL (1.80-7.70); Neutrophils % (A) 62.9 %; Platelet Count 147 X 10*3/uL (140-440); RBC 3.93 X 10*6/uL (4.10-5.20); WBC 7.46 X 10*3/uL (4.50-10.00)
[2024-08-19 10:55] LABS: Urine Creatinine 80.1 mg/dL (28.0-217.0)
[2024-08-19 11:31] LABS: ALT 23 U/L (8-44); AST 36 U/L (13-35); Albumin 3.2 g/dL (3.8-4.9); Albumin/Globulin Ratio 0.89 Ratio (1.60-3.17); Alkaline Phosphatase 131 U/L (41-126); Calcium 8.8 mg/dL (8.7-10.3); Carbon Dioxide 22.5 mmol/L (21.6-31.8); Chloride 104 mmol/L (96-109); Chol/HDL Ratio 2.99 Ratio; Globulin 3.6 g/dL (1.6-3.3); Glucose 143 mg/dL (70-110); LDL Cholesterol,Calculated 96.3 mg/dL (0.0-131.0); Magnesium 1.2 mg/dL (1.5-2.4); Potassium 4.3 mmol/L (3.5-5.5); Sodium 138 mmol/L (135-145); Total Bilirubin 0.6 mg/dL (0.3-1.2); Total Protein 6.8 g/dL (6.2-8.2)
== END | disposition home or self-care (01) ==
LOC: LABWHC1 07:05
PROVIDERS: ATTEND Internal Medicine
DX: I10 Essential (primary) hypertension (principal); E11.65 Type 2 diabetes mellitus with hyperglycemia; E83.42 Hypomagnesemia; E78.5 Hyperlipidemia, unspecified; M85.80 Other specified disorders of bone density and structure, unspecified site
CPT/HCPCS: 36415; 80053; 80061; 82043; 82306; 82570; 83735; 84443; 85025

== ENCOUNTER 2024-08-26 08:39 | Emergency (ER) | payer MEDICARE ==
--- NOTE | 2024-08-26 08:49 | ED ---
General Adult HPI - General Stated complaint: Fall-R ankle injury Time Seen by Provider: 08/26/24 08:41 Source: patient, EMS, RN notes reviewed Mode of arrival: EMS Limitations: no limitations - History of Present Illness Initial comments: Patient is a pleasant 78-year-old female present to the emergency department with concerns for fall. Patient arrives by EMS. Patient was bending over when she tripped. Patient did strike her head however no loss of consciousness. Patient is on Plavix. Patient did injure her right ankle. Patient does have history of previous procedure to the right ankle. Patient unable to ambulate. EMS reports that ankle was displaced and they did splinted. No chest pain or dyspnea. No back or abdominal pain. - Related Data Home Medications Medication Instructions Recorded Confirmed Esomeprazole Magnesium [NexIUM] 40 mg PO QA 02/21/18 06/28/24 Cyclobenzaprine [Flexeril] 10 mg PO HS 07/15/21 06/28/24 Pramipexole [Mirapex] 1 mg PO HS 10/15/21 06/28/24 Atorvastatin [Lipitor] 40 mg PO HS 12/18/21 06/28/24 Gabapentin 300 mg PO HS 12/18/21 06/28/24 Aspirin [Adult Low Dose Aspirin EC] 81 mg PO DAILY 08/12/22 06/28/24 traZODone HCL [Desyrel] 50 mg PO HS 11/26/23 06/28/24 Insulin Glargine (Lantus) [Lantus 60 unit SQ HS 12/31/23 06/28/24 Vial] Insulin Glargine (Lantus) [Lantus 79 unit SQ DAILY 12/31/23 06/28/24 Vial] Previous Rx's Medication Instructions Recorded HYDROcodone/APAP 10-325MG [[place] 1 tab PO Q6HR PRN 3 Days #12 tab 02/19/21 10-325] Amiodarone [Cordarone] 200 mg PO BID #14 tab 01/07/24 Ascorbic Acid [Vitamin C] 500 mg PO 1200 #7 tab 01/07/24 Budesonide-Formot 160-4.5 Mcg 2 puff INHALATION RT-BID #1 each 01/07/24 [Symbicort 160-4.5 Mcg Inhaler] Clopidogrel [Plavix] 75 mg PO DAILY #30 tab 01/07/24 Ferrous Sulfate [Iron (65 MG 325 mg PO W/LUNCH #7 tab 01/07/24 Elemental)] Sennosides-Docusate Sodium 2 each PO HS #14 tab 01/07/24 [Senokot-S] carvediloL [Coreg] 6.25 mg PO BID-W/MEALS #60 tab 01/07/24 Allergies Allergy/AdvReac Type Severity Reaction Status Date / Time pentazocine [From [place]] Allergy Hallucinati Verified 08/26/24 09:05 ons Review of Systems ROS Statement: Those systems with pertinent positive or pertinent negative responses have been documented in the HPI. ROS Other: All systems not noted in ROS Statement are negative. Constitutional: Denies: fever Eyes: Denies: eye pain ENT: Denies: ear pain Respiratory: Denies: dyspnea Cardiovascular: Denies: chest pain Musculoskeletal: Reports: as per HPI Neurological: Denies: weakness, confusion Past Medical History Past Medical History: Coronary Artery Disease (CAD), Chest Pain / Angina, Heart Failure, Diabetes Mellitus, GERD/Reflux, GI Bleed, Hypertension, Liver Disease, Sleep Apnea/CPAP/BIPAP Additional Past Medical History / Comment(s): anemia and has had several iron infusions/blood transfusions,past bleeding gastric ulcers, rectal bleed, nonalcoholic liver cirrhosis,,RLS, low back/L hip pain,. clausterphobia. insomnia, History of Any Multi-Drug Resistant Organisms: None Reported Past Surgical History: Hysterectomy, Orthopedic Surgery, Tonsillectomy Additional Past Surgical History / Comment(s): Hemorrhagic cyst removed from right ureter; Right foot surgery d/t crush injury; Left hip pain stimulator implanted, Steel iris in right arm, EGDs/colonoscopies, bone marrow aspirations, low back and cervical injections for pain, bilateral cataract removals with lens implants. Right middle and ring finger trigger release. Past Anesthesia/Blood Transfusion Reactions: No Reported Reaction, Motion Sickness Additional Past Anesthesia/Blood Transfusion Reaction / Comment(s): Pt has had several blood transfusions without reaction. Pt has clausterphobia. Smoking Status: Former smoker - Past Family History Father Additional Family Medical History / Comment(s): Father was an alcoholic but was sober for the last 9 yrs of his life. Mother Family Medical History: Coronary Artery Disease (CAD), Diabetes Mellitus Additional Family Medical History / Comment(s): Low hgb. She during a colonoscopy. She had 4 vessel CABG Sister(s) Additional Family Medical History / Comment(s): heart stent General Exam Limitations: no limitations General appearance: alert, in no apparent distress Head exam: Present: other (Soft tissue swelling right posterior parietal) Eye exam: Present: normal appearance, PERRL, EOMI ENT exam: Present: normal oropharynx Neck exam: Present: normal inspection. Absent: tenderness Respiratory exam: Present: normal lung sounds bilaterally Cardiovascular Exam: Present: regular rate, normal rhythm Expanded Peripheral pulses: 2+: Posterior Tibialis (R), Dorsalis Pedis (R) GI/Abdominal exam: Present: soft. Absent: tenderness Extremities exam: Present: tenderness (Right ankle with tenderness and swelling. Foot is slightly deviated externally. Distally the extremity is neurovascular intact. Good cap refill. Good sensation. Able to move toes.) Neurological exam: Present: alert, oriented X3, CN II-XII intact. Absent: motor sensory deficit Expanded Neurological exam: Present: protecting the airway Speech: Present: fluid speech Sensory exam: Lower Extremity Light Touch: Normal Motor strength exam: RUE: 5, LUE: 5, RLE: 5, LLE: 5 Eye Response: (4) open spontaneously Motor Response: (6) obeys commands Verbal Response: (5) oriented Psychiatric exam: Present: normal affect, normal mood Skin exam: Present: normal color Course Vital Signs 08/26/24 08/26/24 08/26/24 08:49 11:02 11:05 Temperature 98.4 F Pulse Rate 74 75 73 Respiratory 18 12 17 Rate Blood Pressure 157/65 171/61 129/54 O2 Sat by Pulse 97 100 99 Oximetry 08/26/24 08/26/24 08/26/24 11:10 11:15 11:20 Temperature Pulse Rate 74 74 75 Respiratory 13 12 14 Rate Blood Pressure 121/64 121/65 152/83 O2 Sat by Pulse 99 97 96 Oximetry 08/26/24 08/26/24 11:23 11:52 Temperature Pulse Rate 75 76 Respiratory 18 20 Rate Blood Pressure 151/75 165/69 O2 Sat by Pulse 95 96 Oximetry Procedures - Orthopedic Fracture Reduction Fracture #1 Side: right Fracture Reduction Location: tibia, fibula Analgesia: procedural sedation Technique: traction/counter-traction Post Reduction X-rays Demonstrate: acceptable reduction Post-Reduction Neuro Exam: intact Post-Reduction Vascular Exam: intact Splint Applied: Yes Patient Tolerated Procedure: well, no complications - Orthopedic Splinting/Casting Injury #1 Side: right Lower Extremity Injury Location: short leg, ankle Lower Extremity Immobilizer: stirrup splint - Procedural Sedation *Procedural Sedation Start Time: 11:02 *Procedural Sedation Stop Time: 11:25 *Risks,benefits, and alternative therapies discussed?: Yes *Patient indicates understanding of risk/benefit discussion?: Yes *Indications: fracture/dislocation reduction *Previous Adverse Reaction to Anesthesia/Sedation?: No * Testing Complete?: No Reason Test Not Complete:: Age > 60 *ASA Class: II *Mallampati Airway Score: 2 Preparation: electrical estimator applied, pulse oximeter, supplemental O2 applied IV Propofol Dose (mgs): 60 Complications: none Patient Tolerated Procedure: well, no complications Medical Decision Making - Medical Decision Making Was pt. sent in by a medical professional or institution (, PA, LOGISTICS SUPPORT, urgent care, hospital, or fdc...) When possible be specific @ -No Did you speak to anyone other than the patient for history (EMS, parent, family, police, friend...)? What history was obtained from this source @ -EMS provides history of injury and dislocation concerns Did you review nursing and triage notes (agree or disagree)? Why? @ -I reviewed and agree with nursing and triage notes Were old charts reviewed (outside hosp., previous admission, EMS record, old EKG, old radiological studies, urgent care reports/EKG's, fdc records)? Report findings @ -No old charts were reviewed Differential Diagnosis (chest pain, altered mental status, abdominal pain women, abdominal pain men, vaginal bleeding, weakness, fever, dyspnea, syncope, headache, dizziness, GI bleed, back pain, seizure, CVA, palpatations, mental health, musculoskeletal)? @ -Differential Musculoskeletal Muscular strain, contusion, ligament sprain, fracture, arthritis, septic arthritis, bursitis, cellulitis, muscle spasm, nerve compression, DVT, arterial occlusion, herpes zoster, electrolyte abnormality, tumor.... This is not meant to be in all inclusive list EKG interpreted by me (3pts min.). @ -As above X-rays interpreted by me (1pt min.). @ -X-ray right ankle and tib-fib shows displaced distal tibia fibular fracture, postreduction films with significant improvement CT interpreted by me (1pt min.). @ -CT scan shows distal tibia-fibula fracture. CT scan brain and cervical spine without acute abnormality U/S interpreted by me (1pt. min.). @ -None done What testing was considered but not performed or refused? (CT, X-rays, U/S, labs)? Why? @ -None What meds were considered but not given or refused? Why? @ -None Did you discuss the management of the patient with other professionals (professionals i.e. Dr., PA, LOGISTICS SUPPORT, lab, RT, psych nurse, social service liaison, recreation worker, teacher, armed security officer, family preservation caseworker)? Give summary @ -[facility] request [facility]. Case discussed with Dr. Mcdowell who does recommend patient be referred to orthopedic trauma specialist. Case also discussed with Dr. Parrish including injury and reduction and he will follow-up with patient beginning of the week. Was smoking cessation discussed for >3mins.? @ -No Was critical care preformed (if so, how long)? @ -No Were there social determinants of health that impacted care today? How? (Homelessness, low income, unemployed, alcoholism, drug addiction, transportation, low edu. Level, literacy, decrease access to med. care, residential, rehab)? @ -No Was there de-escalation of care discussed even if they declined (Discuss DNR or withdrawal of care, Hospice)? DNR status @ -No What co-morbidities impacted this encounter? (DM, HTN, Smoking, COPD, CAD, Cancer, CVA, ARF, Chemo, Hep., AIDS, mental health diagnosis, sleep apnea, morbid obesity)? @ -None Was patient admitted / discharged? Hospital course, mention meds given and route, prescriptions, significant lab abnormalities, going to OR and other pertinent info. @ -Patient presents with fall. Patient has pilon fracture with dislocation. This has been reduced in the emergency department, see note above. Patient splinted. Patient will be discharged with prescription for walker. Patient reevaluated. Patient and family are updated. Undiagnosed new problem with uncertain prognosis? @ -No Drug Therapy requiring intensive monitoring for toxicity (Heparin, Nitro, Insulin, Cardizem)? @ -No Were any procedures done? @ -See notes above Diagnosis/symptom? @ -Pilon fracture Acute, or Chronic, or Acute on Chronic? @ -Acute Uncomplicated (without systemic symptoms) or Complicated (systemic symptoms)? @ -Default Side effects of treatment? @ -No Exacerbation, Progression, or Severe Exacerbation? @ -No Poses a threat to life or bodily function? How? (Chest pain, [place], DC, pneumonia, PE, COPD, DKA, ARF, appy, cholecystitis, CVA, Diverticulitis, Homicidal, Suicidal, threat to staff... and all critical care pts) @ -No - Lab Data Lab Results 08/26/24 Range/Units 10:34 POC Glucose (mg/dL) 286 H (70-110) mg/dL POC Glu Tumbler Machine Operator ID Camille Sarkar Disposition Clinical Impression: Pilon fracture of right tibia, Fall Disposition: HOME SELF-CARE Instructions (If sedation given, give patient instructions): Head Injury (ED), Ankle Fracture (ED) Additional Instructions: Prescription provided for walker. No weightbearing at all in the right leg. Follow-up with Dr. Parrish beginning the week, number provided. Please bring CD with images on it for him. Return for increased pain, swelling, confusion or weakness, worsening symptoms or any other concerns. Is patient prescribed a controlled substance at d/c from ED?: No Referrals: Giovanni Hanks DO [Primary Care Provider] - 1-2 days Lucius Parrish DO [REFERRING] - 1-2 days Time of Disposition: 12:03
--- NOTE | 2024-08-26 09:15 | CT ---
EXAMINATION TYPE: CT brain cspine wo con DATE OF EXAM: 08/26/2024 9:07 AM COMPARISON: None, please note PACS Production downtime occurred during the radiologist interpretation of these images with limited priors/reports. CLINICAL INDICATION: Female, 78 years old with history of trauma; pain TECHNIQUE: Brain: Multiple axial CT images of the brain were obtained without IV contrast. Cspine: Axial CT images from the skull base to the inferior aspect of T2 we obtained without intraven ous contrast. Coronal and sagittal reformatted images were also reviewed. CT DLP: 1481 mGycm, Automated exposure control for dose reduction was used. FINDINGS: Brain: Extra-axial spaces: No abnormal extra-axial fluid collections. Ventricular system: Within normal limits Cerebral parenchyma: No acute intraparenchymal hemorrhage or mass effect. The franklin-white junction is well differentiated. Cerebellum: Unremarkable. Mass effect: No evidence of midline shift. Intracranial vasculature: Atherosclerotic calcifications of the intracranial vessels. Soft tissues: Normal. Calvarium/osseous structures: No depressed skull fracture. Paranasal sinuses and mastoid air cells: Clear. Visualized orbits: Bilateral aphakia Cervical spine: Fracture: None. Osseous structures: Multilevel degenerative disc disease changes with endplate spurring and disc oste ophyte complex's. Vertebral alignment: Within normal limits. Spinal canal/Neural Foramina: No evidence of significant spinal canal narrowing. No evidence for sign ificant neural foraminal stenosis. Neck soft tissues: Prevertebral soft tissues are within normal limits. Other: The airway is patent. The lung apices are clear. Atherosclerosis of the carotid bifurcations. IMPRESSION: 1. No acute intracranial process. 2. No evidence of cervical spine fracture. 3. Mild multilevel degenerative disc disease. [facility], , 08/26/2024 9:13 AM
[2024-08-26] MEDS: MORPHINE SULFATE 4 MG/ML SYRINGE IVP STA (09:19)
--- NOTE | 2024-08-26 10:29 | XR ---
EXAMINATION TYPE: XR ankle complete RT, XR tibia fibula RT DATE OF EXAM: 08/26/2024 9:58 AM COMPARISON: None. CLINICAL INDICATION: Female, 78 years old with history of trauma, TECHNIQUE: XR ankle complete RT, XR tibia fibula RT, views submitted for evaluation. FINDINGS: Severely Displaced fractures noted of the distal fibula above the level of the ankle mortise with ove rriding of the fracture components and complete displacement seen. Posterior malleolar fracture ident ified with anterolateral displacement of the distal tibia anteriorly and medially. Tibiotalar joint s pace markedly widened at 1.4 cm medial malleolus appears to be grossly intact. Disruption portions of the ankle mortise. No additional fractures seen. Extensive soft tissue swelling and deformity. IMPRESSION: Fractures as discussed. [facility], , 08/26/2024 10:27 AM
[2024-08-26 10:36] LABS: Glucose,Whole Blood 286 mg/dL (70-110)
[2024-08-26] MEDS: PROPOFOL 10 MG/ML 20 ML VIAL IV ONE (11:02)
--- NOTE | 2024-08-26 11:27 | XR ---
EXAMINATION TYPE: XR ankle limited RT DATE OF EXAM: 08/26/2024 11:23 AM COMPARISON: None. CLINICAL INDICATION: Female, 78 years old with history of post reduction, TECHNIQUE: XR ankle limited RT, views submitted for evaluation. FINDINGS: Post reduction radiographs demonstrate much improved alignment about the ankle mortise when compared to previous study. Previously described fractures are redemonstrated. Overlying cast material does ob scure fine bony detail. IMPRESSION: 1. As above [facility], , 08/26/2024 11:25 AM
[2024-08-26 11:54] VITALS: RESP 20
[2024-08-26 12:24] LABS: Glucose,Whole Blood 264 mg/dL (70-110)
--- NOTE | 2024-08-26 12:41 | CT ---
EXAMINATION TYPE: CT ankle RT wo con DATE OF EXAM: 08/26/2024 11:52 AM COMPARISON: None. CLINICAL INDICATION: Female, 78 years old with history of fracture, Fracture, TECHNIQUE: Axial CT was performed with sagittal and coronal reformats. 3D reconstruction performed on a separate workstation. IV CONTRAST: , patient injected with mL of . (None if empty) CT DLP: 98.9 mGycm, Automated exposure control for dose reduction was used. FINDINGS: There is fracture at the medial malleolus with displacement of 4 mm. Fracture at the lateral malleolu s obliquely seen extending from the ankle mortise cranially with displacement of 6 mm. Comminuted pos terior malleolar fracture with displacement of 8 mm. 6.5 mm displacement of the posterior malleolar f racture from the posterior aspect of the ankle mortise. The remaining ankle mortise demonstrates appr opriate placement. No additional fractures identified. Extensive soft tissue edema seen. IMPRESSION: 1. Trimalleolar fracture as noted. [facility], , 08/26/2024 12:39 PM
[2024-08-26] MEDS: HYDROcodone/APAP 10-325MG 1 EACH TAB PO ONE (13:16)
[2024-08-26 13:44] VITALS: BP 161/71; PULSE 82; TEMP 97.8
== END 2024-08-26 14:07 | disposition home or self-care (01) ==
LOC: EC 08:39
DX: S82.871A Displaced pilon fracture of right tibia, initial encounter for closed fracture (principal); Z79.02 Long term (current) use of antithrombotics/antiplatelets; Z87.891 Personal history of nicotine dependence; Z88.8 Allergy status to other drugs, medicaments and biological substances; W19.XXXA Unspecified fall, initial encounter
CPT/HCPCS: 36415; 73590; 73600; 73610; 72125; 70450; 73700; 99284; 96374; 99152; 27752; J2270; J2704

== ENCOUNTER 2024-09-18 14:16 | Emergency (ER) | payer MEDICARE ==
[2024-09-18 14:23] VITALS: TEMP 97.8
[2024-09-18 14:56] LABS: Basophils # (A) 0.04 10*3/uL (0.00-0.10); Basophils % (A) 0.6 %; Eosinophils # (A) 0.19 10*3/uL (0.04-0.35); Eosinophils % (A) 2.8 %; HCT 34.7 % (37.2-46.3); HGB 11.3 g/dL (12.0-15.0); Lymphocytes # (A) 2.01 10*3/uL (0.90-5.00); Lymphocytes % (A) 29.7 %; MCH 26.8 pg (27.0-32.0); MCHC 32.6 g/dL (32.0-37.0); MCV 82.2 fL (80.0-97.0); Mean Platelet Volume 10.7 fL (9.5-12.2); Monocytes # (A) 0.63 10*3/uL (0.20-1.00); Monocytes % (A) 9.3 %; Neutrophils # (A) 3.83 10*3/uL (1.80-7.70); Neutrophils % (A) 56.7 %; Platelet Count 262 10*3/uL (140-440); RBC 4.22 10*6/uL (4.10-5.20); RDW 15.4 % (11.5-14.5); WBC 6.76 10*3/uL (4.50-10.00)
--- NOTE | 2024-09-18 14:59 | XR ---
EXAMINATION TYPE: XR chest 2V DATE OF EXAM: 09/18/2024 2:55 PM COMPARISON: Prior chest radiograph 01/07/2024. CLINICAL INDICATION: Female, 78 years old with history of dizziness; [facility] TECHNIQUE: XR chest 2V Frontal and lateral views of the chest. FINDINGS: Lungs/Pleura: There is no evidence of pleural effusion, focal consolidation, or pneumothorax. Pulmonary vascularity: Unremarkable. Heart/mediastinum: Cardiomediastinal silhouette is unremarkable. Atrial appendage occlusion device. Median sternotomy wires. Musculoskeletal: No acute osseous pathology. Other findings: Spinal stimulator device. IMPRESSION: No acute cardiopulmonary disease/process. [facility], , 09/18/2024 2:57 PM
[2024-09-18 15:08] LABS: ALT 21 U/L (4-34); AST 26 U/L (14-36); African American GFR (CKD) 48 (>60 ml/min/1.73 sqM); Albumin 3.1 g/dL (3.5-5.0); Alkaline Phosphatase 146 U/L (38-126); Anion Gap 13 mmol/L; Blood Urea Nitrogen 48 mg/dL (7-17); Calcium 8.8 mg/dL (8.4-10.2); Carbon Dioxide 17 mmol/L (22-30); Chloride 104 mmol/L (98-107); Glucose 208 mg/dL (74-99); Non-African American GFR(CKD) 41 (>60 ml/min/1.73 sqM); Potassium 3.4 mmol/L (3.5-5.1); Sodium 134 mmol/L (137-145); Total Bilirubin 0.7 mg/dL (0.2-1.3); Total Protein 7.1 g/dL (6.3-8.2)
[2024-09-18] MEDS: SODIUM CHLORIDE 0.9% 1,000 ML IV ONE (15:08)
--- NOTE | 2024-09-18 15:31 | ED ---
General Adult HPI - General Chief complaint: Dizziness Stated complaint: Dizziness Time Seen by Provider: 09/18/24 14:20 Source: patient, EMS, RN notes reviewed, old records reviewed Mode of arrival: EMS Limitations: no limitations - History of Present Illness Initial comments: This is a 78-year-old female who is in a intermediate for rehabilitation after she had foot surgery. This morning she was feeling lightheaded when he stood up her pressure dropped into the 80s systolic. Patient states she did not pass out. Patient states she did not have chest pain palpitations difficulty breathing or shortness of breath. Patient states her only symptom was she was lightheaded when she tried to stand up. Patient states while she is lying down she has no symptoms. Patient denies any fever or chills. Patient [place] any nausea vomiting diarrhea. - Related Data Home Medications Medication Instructions Recorded Confirmed Cyclobenzaprine [Flexeril] 10 mg PO HS PRN 07/15/21 09/18/24 Clopidogrel [Plavix] 75 mg PO DAILY 08/26/24 09/18/24 Gabapentin [Neurontin] 300 mg PO HS 08/26/24 09/18/24 Insulin Aspart [NovoLOG Flexpen] 5 units SQ AC-TID 08/26/24 09/18/24 Insulin Glargine,Hum.rec.anlog 40 units SQ HS 08/26/24 09/18/24 [Lantus Solostar Pen] Insulin Glargine,Hum.rec.anlog 43 units SQ DAILY 08/26/24 09/18/24 [Lantus Solostar Pen] Losartan Potassium 100 mg PO DAILY 08/26/24 09/18/24 carvediloL [Coreg] 12.5 mg PO BID 08/26/24 09/18/24 Acetaminophen [Tylenol] 650 mg PO Q4H PRN 09/18/24 09/18/24 Albuterol Nebulized [Ventolin 2.5 mg INHALATION RT-Q4H PRN 09/18/24 09/18/24 Nebulized] Albuterol Nebulized [Ventolin 2.5 mg INHALATION RT-TID 09/18/24 09/18/24 Nebulized] Aspirin EC [Ecotrin Low Dose] 81 mg PO DAILY 09/18/24 09/18/24 Atorvastatin [Lipitor] 40 mg PO DAILY 09/18/24 09/18/24 Docosanol 10% Cream [Abreva] 1 applic TOPICAL 5XD 09/18/24 09/18/24 Empagliflozin [Jardiance] 25 mg PO DAILY 09/18/24 09/18/24 Ergocalciferol (Vitamin D2) 1,250 mcg PO SA 09/18/24 09/18/24 [Drisdol (50,000 Iu)] Loperamide [Imodium] 2 mg PO Q6H PRN 09/18/24 09/18/24 Magnesium Hydroxide [Milk of 7,200 mg PO DAILY PRN 09/18/24 09/18/24 Magnesia Concentrate] Multivitamins, Thera [Multivitamin 1 tab PO DAILY 09/18/24 09/18/24 (formulary)] Na Phos,M-B/Na Phos,Di-Ba [Fleet 133 ml RECTAL HS PRN 09/18/24 09/18/24 Adult] Ondansetron Hcl Injection Solution 4 mg IM Q6H PRN 09/18/24 09/18/24 4mg/2ml Ondansetron [Zofran] 4 mg PO Q6H PRN 09/18/24 09/18/24 Pantoprazole [Protonix] 40 mg PO DAILY 09/18/24 09/18/24 Pramipexole [Mirapex] 1 mg PO DAILY 09/18/24 09/18/24 Promethazine Hcl Injection Solution 25 mg IM Q6H PRN 09/18/24 09/18/24 bisacodyL [Dulcolax] 10 mg RECTAL DAILY PRN 09/18/24 09/18/24 oxyCODONE HCL [oxyCODONE HCL (IR)] 5 mg PO Q6H PRN 09/18/24 09/18/24 traZODone HCL 75 mg PO HS 09/18/24 09/18/24 Previous Rx's Medication Instructions Recorded Nitrofurantoin Monohyd/M-Cryst 100 mg PO Q12HR #14 cap 09/18/24 [Macrobid] Allergies Allergy/AdvReac Type Severity Reaction Status Date / Time pentazocine [From [place]] AdvReac Hallucinati Verified 09/18/24 16:13 ons Review of Systems ROS Statement: Those systems with pertinent positive or pertinent negative responses have been documented in the HPI. ROS Other: All systems not noted in ROS Statement are negative. Past Medical History Past Medical History: Coronary Artery Disease (CAD), Chest Pain / Angina, Heart Failure, Diabetes Mellitus, GERD/Reflux, GI Bleed, Hypertension, Liver Disease, Sleep Apnea/CPAP/BIPAP Additional Past Medical History / Comment(s): anemia and has had several iron infusions/blood transfusions,past bleeding gastric ulcers, rectal bleed, nonalcoholic liver cirrhosis,,RLS, low back/L hip pain,. clausterphobia. insomnia, History of Any Multi-Drug Resistant Organisms: None Reported Past Surgical History: Hysterectomy, Orthopedic Surgery, Tonsillectomy Additional Past Surgical History / Comment(s): Hemorrhagic cyst removed from right ureter; Right foot surgery d/t crush injury; Left hip pain stimulator implanted, Steel iris in right arm, EGDs/colonoscopies, bone marrow aspirations, low back and cervical injections for pain, bilateral cataract removals with lens implants. Right middle and ring finger trigger release. Past Anesthesia/Blood Transfusion Reactions: No Reported Reaction, Motion Sickness Additional Past Anesthesia/Blood Transfusion Reaction / Comment(s): Pt has had several blood transfusions without reaction. Pt has clausterphobia. Past Psychological History: No Psychological Hx Reported Smoking Status: Former smoker Past Alcohol Use History: None Reported Past Drug Use History: None Reported - Past Family History Father Additional Family Medical History / Comment(s): Father was an alcoholic but was sober for the last 9 yrs of his life. Mother Family Medical History: Coronary Artery Disease (CAD), Diabetes Mellitus Additional Family Medical History / Comment(s): Low hgb. She during a colonoscopy. She had 4 vessel CABG Sister(s) Additional Family Medical History / Comment(s): heart stent General Exam - General Exam Comments Initial Comments: GENERAL: Patient is well-developed and well-nourished. Patient is nontoxic and well- hydrated and is in no acute distress. ENT: Neck is soft and supple. No significant lymphadenopathy is noted. Oropharynx is clear. Moist mucous membranes. Neck has full range of motion without eliciting any pain. EYES: The sclera were anicteric and conjunctiva were pink and moist. Extraocular movements were intact and pupils were equal round and reactive to light. Eyelids were unremarkable. PULMONARY: Unlabored respirations. Good breath sounds bilaterally. No audible rales rhonchi or wheezing was noted. CARDIOVASCULAR: There is a regular rate and rhythm without any murmurs gallops or rubs. ABDOMEN: Soft and nontender with normal bowel sounds. SKIN: Skin is clear with no lesions or rashes and otherwise unremarkable. NEUROLOGIC: Patient is alert and oriented x3. Cranial nerves II through XII are grossly intact. Motor and sensory are also intact. Normal speech, volume and content. Symmetrical smile. MUSCULOSKELETAL: Normal extremities with adequate strength and full range of motion. LYMPHATICS: No significant lymphadenopathy is noted PSYCHIATRIC: Normal psychiatric evaluation. Limitations: no limitations Course Vital Signs 09/18/24 09/18/24 09/18/24 14:18 14:24 15:41 Temperature 97.8 F Pulse Rate 97 95 Pulse Rate [ 100 Sitting Director Of Patient [employer]] Pulse Rate [ Sitting] Pulse Rate [ Standing] Pulse Rate [ 90 Supine Director Of Patient [employer] Services] Respiratory 20 20 Rate Blood Pressure 142/62 91/60 Blood Pressure 127/74 [Left Arm Sitting] Blood Pressure 142/62 [Left Arm Supine] Blood Pressure [Sitting] Blood Pressure [Standing] Blood Pressure [Supine] O2 Sat by Pulse 95 96 Oximetry 09/18/24 09/18/24 09/18/24 16:01 17:53 17:57 Temperature Pulse Rate 82 Pulse Rate [ Sitting Director Of Patient [employer] Services] Pulse Rate [ 84 Sitting] Pulse Rate [ Standing] Pulse Rate [ 81 Supine Director Of Patient Financial Services] Respiratory 20 Rate Blood Pressure 122/5 Blood Pressure [Left Arm Sitting] Blood Pressure [Left Arm Supine] Blood Pressure 126/55 [Sitting] Blood Pressure [Standing] Blood Pressure 119/58 [Supine] O2 Sat by Pulse 96 Oximetry 09/18/24 09/18/24 18:00 18:11 Temperature Pulse Rate 84 Pulse Rate [ Sitting Director Of Patient [employer] Services] Pulse Rate [ Sitting] Pulse Rate [ 88 Standing] Pulse Rate [ Supine Director Of Patient [employer] Services] Respiratory 18 Rate Blood Pressure 137/57 Blood Pressure [Left Arm Sitting] Blood Pressure [Left Arm Supine] Blood Pressure [Sitting] Blood Pressure 123/51 [Standing] Blood Pressure [Supine] O2 Sat by Pulse 99 Oximetry Medical Decision Making - Medical Decision Making EKG is interpreted by myself but EKG shows a sinus rhythm at 95 bpm CA was 156 QRS is 90 QT interval 350 QTc is 403. Patient's EKG shows no ST segment elevati on or depression. Was pt. sent in by a medical professional or institution ([facility], [facility], urgent care, hospital, or intermediate...) When possible be specific @ -No Did you speak to anyone other than the patient for history (EMS, parent, family, police, friend...)? What history was obtained from this source @ -No Did you review nursing and triage notes (agree or disagree)? Why? @ -I reviewed and agree with nursing and triage notes Were old charts reviewed (outside hosp., previous admission, EMS record, old EKG, old radiological studies, urgent care reports/EKG's, intermediate records)? Report findings @ -No old charts were reviewed Differential Diagnosis? @ -Differential Weakness: Hypoglycemia, shock, sepsis, hyponatremia, anemia, infection, AK, ETOH, adverse medicine reaction, overdose, stroke, this is not meant to be an all-inclusive list. EKG interpreted by me (3pts min.). @ -As above X-rays interpreted by me (1pt min.). @ -Chest x-ray showed no acute abnormality CT interpreted by me (1pt min.). @ -None done U/S interpreted by me (1pt. min.). @ -None done What testing was considered but not performed or refused? (CT, X-rays, U/S, labs)? Why? @ -None What meds were considered but not given or refused? Why? @ -None Did you discuss the management of the patient with other professionals (professionals i.e. [facility], [facility], lab, RT, psych nurse, social science instructor, tattoo and body artist, teacher, airport operations officer, pillowcase cutter)? Give summary @ -No Was smoking cessation discussed for >3mins.? @ -No Was critical care preformed (if so, how long)? @ -No Were there social determinants of health that impacted care today? How? (Homelessness, low income, unemployed, alcoholism, drug addiction, transpor tation, low edu. Level, literacy, decrease access to med. care, halfway, rehab)? @ -No Was there de-escalation of care discussed even if they declined (Discuss DNR or withdrawal of care, Hospice)? DNR status @ -No What co-morbidities impacted this encounter? (DM, HTN, Smoking, COPD, CAD, Cancer, CVA, ARF, Chemo, Hep., AIDS, mental health diagnosis, sleep apnea, morbid obesity)? @ -None Was patient admitted / discharged? Hospital course, mention meds given and route, prescriptions, significant lab abnormalities, going to OR and other pertinent info. @ -Patient received 1 and half liters of normal saline. Patient also received magnesium and potassium. Patient was tested after that she was no longer orthostatic. Patient also had a urinary tract infection was given 2 g of Rocephin will be sent home with an antibiotic. Undiagnosed new problem with uncertain prognosis? @ -No Drug Therapy requiring intensive monitoring for toxicity (Heparin, Nitro, Insulin, Cardizem)? @ -No Were any procedures done? @ -No Diagnosis/symptom? @ -Orthostatic hypotension Acute, or Chronic, or Acute on Chronic? @ -Acute Uncomplicated (without systemic symptoms) or Complicated (systemic symptoms)? @ -Default Side effects of treatment? @ -No Exacerbation, Progression, or Severe Exacerbation? @ -No Poses a threat to life or bodily function? How? (Chest pain, [place], AK, pneumonia, PE, COPD, DKA, ARF, appy, cholecystitis, CVA, Diverticulitis, Homicidal, Suicidal, threat to staff... and all critical care pts) @ -No Diagnosis/symptom? @ -Urinary tract infection Acute, or Chronic, or Acute on Chronic? @ -Acute Uncomplicated (without systemic symptoms) or Complicated (systemic symptoms)? @ -Complicated Side effects of treatment? @ -None Exacerbation, Progression, or Severe Exacerbation] @ -No Poses a threat to life or bodily function? @ -No - Lab Data Result diagrams: 09/18/24 14:50 09/18/24 14:50 Lab Results 09/18/24 09/18/24 09/18/24 Range/Units 14:49 14:50 14:50 WBC 6.76 (4.50-10.00) 10*3/uL RBC 4.22 (4.10-5.20) 10*6/uL Hgb 11.3 L (12.0-15.0) g/dL Hct 34.7 L (37.2-46.3) % MCV 82.2 (80.0-97.0) fL MCH 26.8 L (27.0-32.0) pg MCHC 32.6 (32.0-37.0) g/dL Plt Count 262 (140-440) 10*3/uL MPV 10.7 (9.5-12.2) fL Immature Gran % (Auto) 0.9 % Neutrophils % 56.7 % Lymphocytes % 29.7 % Monocytes % 9.3 % Eosinophils % 2.8 % Basophils % 0.6 % Immature Gran # 0.06 H (0.00-0.04) 10*3/uL Neutrophils # 3.83 (1.80-7.70) 10*3/uL Lymphocytes # 2.01 (0.90-5.00) 10*3/uL Monocytes # 0.63 (0.20-1.00) 10*3/uL Eosinophils # 0.19 (0.04-0.35) 10*3/uL Basophils # 0.04 (0.00-0.10) 10*3/uL Sodium 134 L (137-145) mmol/L Potassium 3.4 L (3.5-5.1) mmol/L Chloride 104 (98-107) mmol/L Carbon Dioxide 17 L (22-30) mmol/L Anion Gap 13 mmol/L BUN 48 H (7-17) mg/dL Creatinine 1.27 H (0.52-1.04) mg/dL Est GFR (CKD-EPI)AfAm 48 (>60 ml/min/1.73 sqM) Est GFR (CKD-EPI)NonAf 41 (>60 ml/min/1.73 sqM) Glucose 208 H (74-99) mg/dL Calcium 8.8 (8.4-10.2) mg/dL Total Bilirubin 0.7 (0.2-1.3) mg/dL AST 26 (14-36) U/L ALT 21 (4-34) U/L Alkaline Phosphatase 146 H (38-126) U/L Troponin I <0.012 (0.000-0.034) ng/mL Total Protein 7.1 (6.3-8.2) g/dL Albumin 3.1 L (3.5-5.0) g/dL Urine Color Urine Appearance (Clear) Urine pH (5.0-8.0) Ur Specific [place] (1.001-1.035) Urine Protein (Negative) Urine Glucose (UA) (Negative) Urine Ketones (Negative) Urine Blood (Negative) Urine Nitrite (Negative) Urine Bilirubin (Negative) Urine Urobilinogen (<2.0) mg/dL Ur Leukocyte Esterase (Negative) Urine RBC (0-5) /hpf Urine WBC (0-5) /hpf Urine WBC Clumps (None) /hpf Ur Squamous Epith Cells (0-4) /hpf Urine Bacteria (None) /hpf Urine Mucus (None) /hpf 09/18/24 Range/Units 15:43 WBC (4.50-10.00) 10*3/uL RBC (4.10-5.20) 10*6/uL Hgb (12.0-15.0) g/dL Hct (37.2-46.3) % MCV (80.0-97.0) fL MCH (27.0-32.0) pg MCHC (32.0-37.0) g/dL Plt Count (140-440) 10*3/uL MPV (9.5-12.2) fL Immature Gran % (Auto) % Neutrophils % % Lymphocytes % % Monocytes % % Eosinophils % % Basophils % % Immature Gran # (0.00-0.04) 10*3/uL Neutrophils # (1.80-7.70) 10*3/uL Lymphocytes # (0.90-5.00) 10*3/uL Monocytes # (0.20-1.00) 10*3/uL Eosinophils # (0.04-0.35) 10*3/uL Basophils # (0.00-0.10) 10*3/uL Sodium (137-145) mmol/L Potassium (3.5-5.1) mmol/L Chloride (98-107) mmol/L Carbon Dioxide (22-30) mmol/L Anion Gap mmol/L BUN (7-17) mg/dL Creatinine (0.52-1.04) mg/dL Est GFR (CKD-EPI)AfAm (>60 ml/min/1.73 sqM) Est GFR (CKD-EPI)NonAf (>60 ml/min/1.73 sqM) Glucose (74-99) mg/dL Calcium (8.4-10.2) mg/dL Total Bilirubin (0.2-1.3) mg/dL AST (14-36) U/L ALT (4-34) U/L Alkaline Phosphatase (38-126) U/L Troponin I (0.000-0.034) ng/mL Total Protein (6.3-8.2) g/dL Albumin (3.5-5.0) g/dL Urine Color Yellow Urine Appearance Cloudy H (Clear) Urine pH 5.5 (5.0-8.0) Ur Specific [place] 1.020 (1.001-1.035) Urine Protein Trace H (Negative) Urine Glucose (UA) 4+ H (Negative) Urine Ketones Negative (Negative) Urine Blood Negative (Negative) Urine Nitrite Positive H (Negative) Urine Bilirubin Negative (Negative) Urine Urobilinogen <2.0 (<2.0) mg/dL Ur Leukocyte Esterase Moderate H (Negative) Urine RBC 1 (0-5) /hpf Urine WBC 44 H (0-5) /hpf Urine WBC Clumps Few H (None) /hpf Ur Squamous Epith Cells 1 (0-4) /hpf Urine Bacteria Occasional H (None) /hpf Urine Mucus Rare H (None) /hpf Disposition Clinical Impression: Orthostatic hypotension, Urinary tract infection Disposition: HOME SELF-CARE Condition: Good Instructions (If sedation given, give patient instructions): Urinary Tract Infection in Women (ED) Prescriptions: Nitrofurantoin Monohyd/M-Cryst [Macrobid] 100 mg PO Q12HR #14 cap Is patient prescribed a controlled substance at d/c from ED?: No Referrals: Giovanni Hanks DO [Primary Care Provider] - 1-2 days Time of Disposition: 18:17
[2024-09-18] MEDS: SODIUM CHLORIDE 0.9% 500 ML 500 ML IV ONE (15:32)
[2024-09-18 16:09] LABS: Appearance,Urine Cloudy (Clear); Bacteria,Urine Occasional /hpf; Bilirubin,Urine Negative (Negative); Blood,Urine Negative (Negative); Color,Urine Yellow; Glucose,Urine (UA) 4+ (Negative); Ketones,Urine Negative (Negative); Leukocyte Esterase,Urine Moderate (Negative); Mucus,Urine Rare /hpf; Nitrite,Urine Positive (Negative); PH, Urine 5.5 (5.0-8.0); Protein,Urine Trace (Negative); RBC,Urine 1 /hpf (0-5); Squamous Epithelial Cell,Urine 1 /hpf (0-4); Urobilinogen,Urine <2.0 mg/dL (<2.0); WBC,Urine 44 /hpf (0-5)
[2024-09-18] MEDS: cefTRIAXone IN SWFI 1,000 MG/10 ML SYRINGE IVP STA (18:07)
[2024-09-18] MEDS: POTASSIUM CHLORIDE ER 20 MEQ TAB.ER PO STA (18:07)
[2024-09-18 19:42] VITALS: BP 127/62; PULSE 77; RESP 20
== END 2024-09-18 19:42 | disposition home or self-care (01) ==
LOC: EC 14:16
DX: I95.1 Orthostatic hypotension (principal); N39.0 Urinary tract infection, site not specified; Z87.891 Personal history of nicotine dependence; Z88.8 Allergy status to other drugs, medicaments and biological substances
CPT/HCPCS: 36415; 93005; 80053; 84484; 85025; 81001; 71046; 99285; 96374; 96361; J0696

== ENCOUNTER 2024-12-09 23:02 | Inpatient (IN) | payer MEDICARE ==
[2024-12-09 23:22] LABS: Glucose,Whole Blood 493 mg/dL (70-110)
[2024-12-09] MEDS: SODIUM CHLORIDE 0.9% 1,100 ML IV ONE (23:43)
[2024-12-10] MEDS: SODIUM CHLORIDE 0.9% 1,000 ML IV STA (00:22)
[2024-12-10 00:25] LABS: ALT 17 U/L (4-34); AST 32 U/L (14-36); African American GFR (CKD) >90 (>60 ml/min/1.73 sqM); Albumin 3.8 g/dL (3.5-5.0); Alkaline Phosphatase 193 U/L (38-126); Anion Gap 14 mmol/L; Blood Urea Nitrogen 11 mg/dL (7-17); Calcium 9.4 mg/dL (8.4-10.2); Carbon Dioxide 22 mmol/L (22-30); Chloride 93 mmol/L (98-107); Non-African American GFR(CKD) 84 (>60 ml/min/1.73 sqM); Potassium 4.9 mmol/L (3.5-5.1); Sodium 129 mmol/L (137-145); Total Protein 8.0 g/dL (6.3-8.2)
[2024-12-10 00:28] LABS: Glucose 538 mg/dL (74-99)
[2024-12-10 00:31] LABS: Basophils # (A) 0.06 10*3/uL (0.00-0.10); Basophils % (A) 0.5 %; Eosinophils # (A) 0.01 10*3/uL (0.04-0.35); Eosinophils % (A) 0.1 %; HCT 35.4 % (37.2-46.3); HGB 11.1 g/dL (12.0-15.0); Lymphocytes # (A) 0.82 10*3/uL (0.90-5.00); Lymphocytes % (A) 6.9 %; MCH 23.8 pg (27.0-32.0); MCHC 31.4 g/dL (32.0-37.0); MCV 76.0 fL (80.0-97.0); Monocytes # (A) 0.54 10*3/uL (0.20-1.00); Monocytes % (A) 4.5 %; Neutrophils # (A) 10.42 10*3/uL (1.80-7.70); Neutrophils % (A) 87.2 %; Platelet Count 176 10*3/uL (140-440); RBC 4.66 10*6/uL (4.10-5.20); RDW 14.6 % (11.5-14.5); WBC 11.94 10*3/uL (4.50-10.00)
[2024-12-10] MEDS: HYDROcodone/APAP 10-325MG 1 EACH TAB PO ONE ×2 (00:32→05:28)
--- NOTE | 2024-12-10 00:36 | ED ---
Altered Mental Status HPI - General Chief Complaint: Altered Mental Status Stated Complaint: AMS Time Seen by Provider: 12/09/24 23:21 Source: EMS Mode of arrival: EMS Limitations: altered mental status - History of Present Illness Initial Comments: This patient is 79-year-old woman who is here with complaint of generalized weakness, fatigue, elevated blood sugar and fever. Patient's daughter states that the symptoms have been getting worse over the past couple days or so. MD Complaint: altered mental status, weakness Onset/Timin -: days(s) Severity: moderate Consistency of Symptoms: getting worse Context: diabetes Associated Symptoms: fever/chills, weakness - Related Data Home Medications Medication Instructions Recorded Confirmed Cyclobenzaprine [Flexeril] 10 mg PO HS PRN 07/15/21 12/10/24 Clopidogrel [Plavix] 75 mg PO DAILY 08/26/24 12/10/24 Gabapentin [Neurontin] 300 mg PO HS 08/26/24 12/10/24 carvediloL [Coreg] 12.5 mg PO BID-W/MEALS 08/26/24 12/10/24 Aspirin EC [Ecotrin Low Dose] 81 mg PO DAILY 09/18/24 12/10/24 Atorvastatin [Lipitor] 40 mg PO DAILY 09/18/24 12/10/24 traZODone HCL 75 mg PO HS 09/18/24 12/10/24 HYDROcodone/APAP 10-325MG [[place] 1 tab PO QID PRN 12/10/24 12/10/24 10-325] Omeprazole 40 mg PO DAILY 12/10/24 12/10/24 Previous Rx's Medication Instructions Recorded Cefdinir 300 mg PO Q12HR #8 cap 12/13/24 Insulin Glargine,Hum.rec.anlog 40 units SQ DAILY #0 12/13/24 [Lantus Solostar Pen] Insulin Glargine,Hum.rec.anlog 40 units SQ HS #0 12/13/24 [Lantus Solostar Pen] INSULIN LISPRO (HumaLOG) [HumaLOG] 0 unit SQ ACHS each 12/16/24 Magnesium Oxide [Mag-Ox] 400 mg PO DAILY #5 tablet 12/17/24 Allergies Allergy/AdvReac Type Severity Reaction Status Date / Time pentazocine [From [place]] AdvReac Hallucinati Verified 12/17/24 01:52 ons Review of Systems ROS Statement: Those systems with pertinent positive or pertinent negative responses have been documented in the HPI. ROS Other: All systems not noted in ROS Statement are negative. Constitutional: Reports: fever, weakness Eyes: Denies: vision change ENT: Reports: congestion Respiratory: Reports: cough. Denies: dyspnea Cardiovascular: Denies: chest pain, palpitations, edema, syncope Gastrointestinal: Denies: abdominal pain, nausea, vomiting Genitourinary: Denies: dysuria, hematuria Musculoskeletal: Denies: back pain Skin: Denies: rash Neurological: Denies: headache, weakness, numbness Past Medical History Past Medical History: Coronary Artery Disease (CAD), Chest Pain / Angina, Heart Failure, Diabetes Mellitus, GERD/Reflux, GI Bleed, Hypertension, Liver Disease, Sleep Apnea/CPAP/BIPAP Additional Past Medical History / Comment(s): anemia and has had several iron infusions/blood transfusions,past bleeding gastric ulcers, rectal bleed, nonal coholic liver cirrhosis,,RLS, low back/L hip pain,. clausterphobia. insomnia, History of Any Multi-Drug Resistant Organisms: None Reported Past Surgical History: Hysterectomy, Orthopedic Surgery, Tonsillectomy Additional Past Surgical History / Comment(s): Hemorrhagic cyst removed from right ureter; Right foot surgery d/t crush injury; Left hip pain stimulator implanted, Steel iris in right arm, EGDs/colonoscopies, bone marrow aspirations, low back and cervical injections for pain, bilateral cataract removals with lens implants. Right middle and ring finger trigger release. Past Anesthesia/Blood Transfusion Reactions: No Reported Reaction, Motion Sickness Additional Past Anesthesia/Blood Transfusion Reaction / Comment(s): Pt has had several blood transfusions without reaction. Pt has clausterphobia. Past Psychological History: No Psychological Hx Reported Smoking Status: Former smoker Past Alcohol Use History: None Reported Past Drug Use History: None Reported - Past Family History Father Additional Family Medical History / Comment(s): Father was an alcoholic but was sober for the last 9 yrs of his life. Mother Family Medical History: Coronary Artery Disease (CAD), Diabetes Mellitus Additional Family Medical History / Comment(s): Low hgb. She during a colonoscopy. She had 4 vessel CABG Sister(s) Additional Family Medical History / Comment(s): heart stent General Exam Limitations: altered mental status General appearance: alert, in no apparent distress Head exam: Present: atraumatic, normocephalic Eye exam: Present: normal appearance. Absent: scleral icterus, conjunctival injection ENT exam: Present: mucous membranes dry Neck exam: Present: normal inspection Respiratory exam: Present: rales (Left). Absent: respiratory distress, wheezes, rhonchi, stridor, accessory muscle use Cardiovascular Exam: Present: normal rhythm, tachycardia. Absent: systolic murmur, diastolic murmur, rubs, gallop GI/Abdominal exam: Present: soft. Absent: distended, tenderness, guarding, rebound, rigid, mass Extremities exam: Present: normal inspection, normal capillary refill. Absent: pedal edema, calf tenderness Back exam: Present: normal inspection. Absent: CVA tenderness (R), CVA tenderness (L) Neurological exam: Present: alert, oriented X3 Skin exam: Present: warm, dry, intact, normal color. Absent: rash Course Vital Signs 12/09/24 12/10/24 12/10/24 23:19 00:26 02:00 Temperature 101 F H 99.4 F Pulse Rate 110 H 104 H Respiratory 20 20 Rate Blood Pressure 168/83 164/61 O2 Sat by Pulse 96 98 Oximetry 12/10/24 12/10/24 12/10/24 03:05 07:00 07:55 Temperature 98.2 F Pulse Rate 95 91 87 Respiratory 18 17 16 Rate Blood Pressure 158/79 163/73 182/82 O2 Sat by Pulse 96 95 98 Oximetry 12/10/24 12/10/24 12/10/24 11:49 13:54 14:58 Temperature 102 F H 101.7 F H 100.3 F H Pulse Rate 120 H 96 90 Respiratory 18 18 16 Rate Blood Pressure 198/67 171/75 138/56 O2 Sat by Pulse 93 L 92 L 95 Oximetry 12/10/24 12/10/24 12/10/24 16:19 17:31 17:34 Temperature 99.6 F 98.6 F Pulse Rate 88 91 Respiratory 16 16 Rate Blood Pressure 140/87 140/58 O2 Sat by Pulse 95 92 L Oximetry Medical Decision Making - Medical Decision Making Patient is a 79-year-old woman in with weakness fatigue, fever, hyperglycemia. Workup reveals pneumonia. Given patient's comorbidities will admit to start antibiotic therapy, fluids, insulin. Case discussed with , for admission The patient had chest x-ray that I interpreted as showing suspected left lung infiltrate concerning for pneumonia in febrile patient Was pt. sent in by a medical professional or institution (, [facility], [facility] [employer], urgent care, hospital, or residential...) When possible be specific @ -[No] Did you speak to anyone other than the patient for history (EMS, parent, family, police, friend...)? What history was obtained from this source @ -[EMS contributed patient history Did you review nursing and triage notes (agree or disagree)? Why? @ -[I reviewed and agree with nursing and triage notes] Were old charts reviewed (outside hosp., previous admission, EMS record, old EKG, old radiological studies, urgent care reports/EKG's, residential records)? Report findings @ -[No old charts were reviewed] Differential Diagnosis (chest pain, altered mental status, abdominal pain women, abdominal pain men, vaginal bleeding, weakness, fever, dyspnea, syncope, headache, dizziness, GI bleed, back pain, seizure, CVA, palpatations, mental health, musculoskeletal)? @ -[Differential Altered Mental Status: Hypoglycemia, DKA, hypercapnia, ETOH, overdose, CO poisoning, trauma, myxedema coma, HTN encephalopathy, infection, encephalitis, psychosis, intercranial hemorrhage, hepatic encephalopathy, meningitis, CVA, this is not meant to be an all-inclusive list Differential Fever: Pneumonia, viral URI, endocarditis, myocarditis, pericarditis, otitis, sinusitis, peritonsillar Abscess, retropharyngeal Abscess, epiglottitis, peritonitis, appendicitis, Mara cystitis, diverticulitis, hepatitis, colitis, UTI, PID, TOA, pyelonephritis, prostatitis, epididymitis, meningitis, encephalitis, pulmonary embolism, CVA, thyroid storm, pancreatitis, adrenal crisis, cavernous sinus thrombosis, this is not meant to be an all-inclusive list. EKG interpreted by me (3pts min.). @ -[I interpreted as above] X-rays interpreted by me (1pt min.). @ -[I interpreted as above CT interpreted by me (1pt min.). @ -[None done] U/S interpreted by me (1pt. min.). @ -[None done] What testing was considered but not performed or refused? (CT, X-rays, U/S, labs)? Why? @ -[None] What meds were considered but not given or refused? Why? @ -[None] Did you discuss the management of the patient with other professionals (professionals i.e. , PA, [facility] [employer], lab, RT, psych nurse, long term care social worker, manager photo, teacher, child support officer, rn case management)? Give summary @ -[Case discussed with admitting physician and treatment recommendations Incorporated Was smoking cessation discussed for >3mins.? @ -[No] Was critical care preformed (if so, how long)? @ -[yes 35 mins Were there social determinants of health that impacted care today? How? (Homelessness, low income, unemployed, alcoholism, drug addiction, transportation, low edu. Level, literacy, decrease access to med. care, assisted, rehab)? @ -[No] Was there de-escalation of care discussed even if they declined (Discuss DNR or withdrawal of care, Hospice)? DNR status @ -[No] What co-morbidities impacted this encounter? (DM, HTN, Smoking, COPD, CAD, Cancer, CVA, ARF, Chemo, Hep., AIDS, mental health diagnosis, sleep apnea, morbid obesity)? @ -[None] Was patient admitted / discharged? Hospital course, mention meds given and route, prescriptions, significant lab abnormalities, going to OR and other pertinent info. @ -[See above Undiagnosed new problem with uncertain prognosis? @ -[No] Drug Therapy requiring intensive monitoring for toxicity (Heparin, Nitro, In sulin, Cardizem)? @ -[No] Were any procedures done? @ -[No] Diagnosis/symptom? @ -[Fever Sepsis Hyperglycemia Pneumonia Altered mental status Acute, or Chronic, or Acute on Chronic? @ -[Acute Uncomplicated (without systemic symptoms) or Complicated (systemic symptoms)? @ -[Complicated by altered mental status Side effects of treatment? @ -[No] Exacerbation, Progression, or Severe Exacerbation? @ -[No] Poses a threat to life or bodily function? How? (Chest pain, [place], [place], pneumonia, PE, COPD, DKA, ARF, appy, cholecystitis, CVA, Diverticulitis, Homicidal, Suicidal, threat to staff... and all critical care pts) @ -[There is some risk of worsening infection in patient with comorbidities All treatments are based on ideal body weight as in ED triage - Lab Data Result diagrams: 12/13/24 03:25 12/13/24 03:25 Lab Results 12/09/24 12/09/24 12/09/24 Range/Units 23:21 23:36 23:36 WBC 11.94 H (4.50-10.00) 10*3/uL RBC 4.66 (4.10-5.20) 10*6/uL Hgb 11.1 L (12.0-15.0) g/dL Hct 35.4 L (37.2-46.3) % MCV 76.0 L (80.0-97.0) fL MCH 23.8 L (27.0-32.0) pg MCHC 31.4 L (32.0-37.0) g/dL Plt Count 176 (140-440) 10*3/uL MPV 10.0 (9.5-12.2) fL Immature Gran % (Auto) 0.8 % Neutrophils % 87.2 % Lymphocytes % 6.9 % Monocytes % 4.5 % Eosinophils % 0.1 % Basophils % 0.5 % Immature Gran # 0.09 H (0.00-0.04) 10*3/uL Neutrophils # 10.42 H (1.80-7.70) 10*3/uL Lymphocytes # 0.82 L (0.90-5.00) 10*3/uL Monocytes # 0.54 (0.20-1.00) 10*3/uL Eosinophils # 0.01 L (0.04-0.35) 10*3/uL Basophils # 0.06 (0.00-0.10) 10*3/uL Sodium (137-145) mmol/L Potassium (3.5-5.1) mmol/L Chloride (98-107) mmol/L Carbon Dioxide (22-30) mmol/L Anion Gap mmol/L BUN (7-17) mg/dL Creatinine (0.52-1.04) mg/dL Est GFR (CKD-EPI)AfAm (>60 ml/min/1.73 sqM) Est GFR (CKD-EPI)NonAf (>60 ml/min/1.73 sqM) Glucose (74-99) mg/dL POC Glucose (mg/dL) 493 H (70-110) mg/dL POC Glu [employer] ID [address] Glu mg/dL 341 mg/dL Hemoglobin A1c 13.5 H (<=6.0) % Calcium (8.4-10.2) mg/dL Total Bilirubin (0.2-1.3) mg/dL AST (14-36) U/L ALT (4-34) U/L Alkaline Phosphatase (38-126) U/L Troponin I (0.000-0.034) ng/mL Total Protein (6.3-8.2) g/dL Albumin (3.5-5.0) g/dL Urine Color Urine Appearance (Clear) Urine pH (5.0-8.0) Ur Specific [place] (1.001-1.035) Urine Protein (Negative) Urine Glucose (UA) (Negative) Urine Ketones (Negative) Urine Blood (Negative) Urine Nitrite (Negative) Urine Bilirubin (Negative) Urine Urobilinogen (<2.0) mg/dL Ur Leukocyte Esterase (Negative) Urine RBC (0-5) /hpf Urine WBC (0-5) /hpf Ur Squamous Epith Cells (0-4) /hpf Urine Bacteria (None) /hpf Urine Opiates Screen (NotDetected) Ur Oxycodone Screen (NotDetected) Urine Methadone Screen (NotDetected) Ur Barbiturates Screen (NotDetected) U Tricyclic Antidepress (NotDetected) Ur Phencyclidine Scrn (NotDetected) Ur Amphetamines Screen (NotDetected) U Methamphetamines Scrn (NotDetected) U Benzodiazepines Scrn (NotDetected) Urine Cocaine Screen (NotDetected) U Marijuana (THC) Screen (NotDetected) Acetone, Qual (Negative) Influenza Type A (PCR) (Not Detectd) Influenza Type B (PCR) (Not Detectd) Urine Legionella Ag (Negative) RSV (PCR) (Not Detectd) SARS-CoV-2 (PCR) (Not Detectd) 12/09/24 12/09/24 12/09/24 Range/Units 23:38 23:38 23:38 WBC (4.50-10.00) 10*3/uL RBC (4.10-5.20) 10*6/uL Hgb (12.0-15.0) g/dL Hct (37.2-46.3) % MCV (80.0-97.0) fL MCH (27.0-32.0) pg MCHC (32.0-37.0) g/dL Plt Count (140-440) 10*3/uL MPV (9.5-12.2) fL Immature Gran % (Auto) % Neutrophils % % Lymphocytes % % Monocytes % % Eosinophils % % Basophils % % Immature Gran # (0.00-0.04) 10*3/uL Neutrophils # (1.80-7.70) 10*3/uL Lymphocytes # (0.90-5.00) 10*3/uL Monocytes # (0.20-1.00) 10*3/uL Eosinophils # (0.04-0.35) 10*3/uL Basophils # (0.00-0.10) 10*3/uL Sodium 129 L (137-145) mmol/L Potassium 4.9 (3.5-5.1) mmol/L Chloride 93 L (98-107) mmol/L Carbon Dioxide 22 (22-30) mmol/L Anion Gap 14 mmol/L BUN 11 (7-17) mg/dL Creatinine 0.70 (0.52-1.04) mg/dL Est GFR (CKD-EPI)AfAm >90 (>60 ml/min/1.73 sqM) Est GFR (CKD-EPI)NonAf 84 (>60 ml/min/1.73 sqM) Glucose 538 H* (74-99) mg/dL POC Glucose (mg/dL) (70-110) mg/dL POC Glu [employer] ID Estimated [address] Glu mg/dL mg/dL Hemoglobin A1c (<=6.0) % Calcium 9.4 (8.4-10.2) mg/dL Total Bilirubin 1.1 (0.2-1.3) mg/dL AST 32 (14-36) U/L ALT 17 (4-34) U/L Alkaline Phosphatase 193 H (38-126) U/L Troponin I <0.012 (0.000-0.034) ng/mL Total Protein 8.0 (6.3-8.2) g/dL Albumin 3.8 (3.5-5.0) g/dL Urine Color Urine Appearance (Clear) Urine pH (5.0-8.0) Ur Specific [place] (1.001-1.035) Urine Protein (Negative) Urine Glucose (UA) (Negative) Urine Ketones (Negative) Urine Blood (Negative) Urine Nitrite (Negative) Urine Bilirubin (Negative) Urine Urobilinogen (<2.0) mg/dL Ur Leukocyte Esterase (Negative) Urine RBC (0-5) /hpf Urine WBC (0-5) /hpf Ur Squamous Epith Cells (0-4) /hpf Urine Bacteria (None) /hpf Urine Opiates Screen (NotDetected) Ur Oxycodone Screen (NotDetected) Urine Methadone Screen (NotDetected) Ur Barbiturates Screen (NotDetected) U Tricyclic Antidepress (NotDetected) Ur Phencyclidine Scrn (NotDetected) Ur Amphetamines Screen (NotDetected) U Methamphetamines Scrn (NotDetected) U Benzodiazepines Scrn (NotDetected) Urine Cocaine Screen (NotDetected) U Marijuana (THC) Screen (NotDetected) Acetone, Qual Negative (Negative) Influenza Type A (PCR) (Not Detectd) Influenza Type B (PCR) (Not Detectd) Urine Legionella Ag (Negative) RSV (PCR) (Not Detectd) SARS-CoV-2 (PCR) (Not Detectd) 12/09/24 12/10/24 12/10/24 Range/Units 23:45 00:24 00:26 WBC (4.50-10.00) 10*3/uL RBC (4.10-5.20) 10*6/uL Hgb (12.0-15.0) g/dL Hct (37.2-46.3) % MCV (80.0-97.0) fL MCH (27.0-32.0) pg MCHC (32.0-37.0) g/dL Plt Count (140-440) 10*3/uL MPV (9.5-12.2) fL Immature Gran % (Auto) % Neutrophils % % Lymphocytes % % Monocytes % % Eosinophils % % Basophils % % Immature Gran # (0.00-0.04) 10*3/uL Neutrophils # (1.80-7.70) 10*3/uL Lymphocytes # (0.90-5.00) 10*3/uL Monocytes # (0.20-1.00) 10*3/uL Eosinophils # (0.04-0.35) 10*3/uL Basophils # (0.00-0.10) 10*3/uL Sodium (137-145) mmol/L Potassium (3.5-5.1) mmol/L Chloride (98-107) mmol/L Carbon Dioxide (22-30) mmol/L Anion Gap mmol/L BUN (7-17) mg/dL Creatinine (0.52-1.04) mg/dL Est GFR (CKD-EPI)AfAm (>60 ml/min/1.73 sqM) Est GFR (CKD-EPI)NonAf (>60 ml/min/1.73 sqM) Glucose (74-99) mg/dL POC Glucose (mg/dL) (70-110) mg/dL POC Glu [employer] ID Estimated [address] Glu mg/dL mg/dL Hemoglobin A1c (<=6.0) % Calcium (8.4-10.2) mg/dL Total Bilirubin (0.2-1.3) mg/dL AST (14-36) U/L ALT (4-34) U/L Alkaline Phosphatase (38-126) U/L Troponin I (0.000-0.034) ng/mL Total Protein (6.3-8.2) g/dL Albumin (3.5-5.0) g/dL Urine Color Urine Appearance (Clear) Urine pH (5.0-8.0) Ur Specific [place] (1.001-1.035) Urine Protein (Negative) Urine Glucose (UA) (Negative) Urine Ketones (Negative) Urine Blood (Negative) Urine Nitrite (Negative) Urine Bilirubin (Negative) Urine Urobilinogen (<2.0) mg/dL Ur Leukocyte Esterase (Negative) Urine RBC (0-5) /hpf Urine WBC (0-5) /hpf Ur Squamous Epith Cells (0-4) /hpf Urine Bacteria (None) /hpf Urine Opiates Screen Detected H (NotDetected) Ur Oxycodone Screen Not Detected (NotDetected) Urine Methadone Screen Not Detected (NotDetected) Ur Barbiturates Screen Not Detected (NotDetected) U Tricyclic Antidepress Not Detected (NotDetected) Ur Phencyclidine Scrn Not Detected (NotDetected) Ur Amphetamines Screen Not Detected (NotDetected) U Methamphetamines Scrn Not Detected (NotDetected) U Benzodiazepines Scrn Not Detected (NotDetected) Urine Cocaine Screen Not Detected (NotDetected) U Marijuana (THC) Screen Not Detected (NotDetected) Acetone, Qual (Negative) Influenza Type A (PCR) Not Detected (Not Detectd) Influenza Type B (PCR) Not Detected (Not Detectd) Urine Legionella Ag Negative (Negative) RSV (PCR) Not Detected (Not Detectd) SARS-CoV-2 (PCR) Not Detected (Not Detectd) 12/10/24 Range/Units 00:26 WBC (4.50-10.00) 10*3/uL RBC (4.10-5.20) 10*6/uL Hgb (12.0-15.0) g/dL Hct (37.2-46.3) % MCV (80.0-97.0) fL MCH (27.0-32.0) pg MCHC (32.0-37.0) g/dL Plt Count (140-440) 10*3/uL MPV (9.5-12.2) fL Immature Gran % (Auto) % Neutrophils % % Lymphocytes % % Monocytes % % Eosinophils % % Basophils % % Immature Gran # (0.00-0.04) 10*3/uL Neutrophils # (1.80-7.70) 10*3/uL Lymphocytes # (0.90-5.00) 10*3/uL Monocytes # (0.20-1.00) 10*3/uL Eosinophils # (0.04-0.35) 10*3/uL Basophils # (0.00-0.10) 10*3/uL Sodium (137-145) mmol/L Potassium (3.5-5.1) mmol/L Chloride (98-107) mmol/L Carbon Dioxide (22-30) mmol/L Anion Gap mmol/L BUN (7-17) mg/dL Creatinine (0.52-1.04) mg/dL Est GFR (CKD-EPI)AfAm (>60 ml/min/1.73 sqM) Est GFR (CKD-EPI)NonAf (>60 ml/min/1.73 sqM) Glucose (74-99) mg/dL POC Glucose (mg/dL) (70-110) mg/dL POC Glu [employer] ID Estimated Ave Glu mg/dL mg/dL Hemoglobin A1c (<=6.0) % Calcium (8.4-10.2) mg/dL Total Bilirubin (0.2-1.3) mg/dL AST (14-36) U/L ALT (4-34) U/L Alkaline Phosphatase (38-126) U/L Troponin I (0.000-0.034) ng/mL Total Protein (6.3-8.2) g/dL Albumin (3.5-5.0) g/dL Urine Color Colorless Urine Appearance Clear (Clear) Urine pH 6.0 (5.0-8.0) Ur Specific [place] 1.027 (1.001-1.035) Urine Protein 2+ H (Negative) Urine Glucose (UA) 4+ H (Negative) Urine Ketones 1+ H (Negative) Urine Blood Small H (Negative) Urine Nitrite Positive H (Negative) Urine Bilirubin Negative (Negative) Urine Urobilinogen <2.0 (<2.0) mg/dL Ur Leukocyte Esterase Small H (Negative) Urine RBC 1 (0-5) /hpf Urine WBC 19 H (0-5) /hpf Ur Squamous Epith Cells 1 (0-4) /hpf Urine Bacteria Rare H (None) /hpf Urine Opiates Screen (NotDetected) Ur Oxycodone Screen (NotDetected) Urine Methadone Screen (NotDetected) Ur Barbiturates Screen (NotDetected) U Tricyclic Antidepress (NotDetected) Ur Phencyclidine Scrn (NotDetected) Ur Amphetamines Screen (NotDetected) U Methamphetamines Scrn (NotDetected) U Benzodiazepines Scrn (NotDetected) Urine Cocaine Screen (NotDetected) U Marijuana (THC) Screen (NotDetected) Acetone, Qual (Negative) Influenza Type A (PCR) (Not Detectd) Influenza Type B (PCR) (Not Detectd) Urine Legionella Ag (Negative) RSV (PCR) (Not Detectd) SARS-CoV-2 (PCR) (Not Detectd) - EKG Data -: EKG Interpreted by Co EKG shows normal: sinus rhythm, axis (Normal), intervals (Normal), QRS complexes (Normal) Rate: tachycardia (Rate 106 bpm) Interpretation: nonspecific ST-T wave changes Disposition Clinical Impression: Type 2 diabetes mellitus, Pneumonia Disposition: ADMITTED IP TO THIS HOSP Condition: Fair
[2024-12-10 00:41] LABS: RSV Not Detected (Not Detectd)
[2024-12-10] MEDS: ONDANSETRON 4 MG/2 ML VIAL IVP STA (00:42)
[2024-12-10 00:58] LABS: Barbiturate Screen,Urine Not Detected (NotDetected); Benzodiazepines Screen,Urine Not Detected (NotDetected); Opiate Screen,Urine Detected (NotDetected); Oxycodone Screen, Urine Not Detected (NotDetected); Phencyclidine Screen,Urine Not Detected (NotDetected); Tricyclic Antidepressant,Urine Not Detected (NotDetected); Urn Cannabinoid Scrn Not Detected (NotDetected)
[2024-12-10] MEDS: ACETAMINOPHEN TAB 325 MG TAB PO STA (01:14)
--- NOTE | 2024-12-10 01:24 | XR ---
EXAM: XR Chest, 2 Views CLINICAL HISTORY: ITS.REASON XR Reason: altered mental status TECHNIQUE: Frontal and lateral views of the chest. COMPARISON: No relevant prior studies available. FINDINGS: Lungs: Small amount of interstitial opacities in left lung. Lungs are underinflated. Pleural space: Unremarkable. Mediastinum: Sternal wires , atrial appendage clip and mediastinal clips. Bones/joints: No acute findings. IMPRESSION: Left lung findings can be due to underinflation , mild asymmetrical pulmonary edema or pneumonia
[2024-12-10] MEDS: AZITHROMYCIN 500 MG TAB PO STA (02:44)
[2024-12-10 03:38] LABS: Bacteria,Urine Rare /hpf; Bilirubin,Urine Negative (Negative); Blood,Urine Small (Negative); Color,Urine Colorless; Glucose,Urine (UA) 4+ (Negative); Ketones,Urine 1+ (Negative); Leukocyte Esterase,Urine Small (Negative); Nitrite,Urine Positive (Negative); PH, Urine 6.0 (5.0-8.0); Protein,Urine 2+ (Negative); RBC,Urine 1 /hpf (0-5); Specific Gravity,Urine 1.027 (1.001-1.035); Squamous Epithelial Cell,Urine 1 /hpf (0-4); Urobilinogen,Urine <2.0 mg/dL (<2.0); WBC,Urine 19 /hpf (0-5)
[2024-12-10] MEDS ORDERED: ALBUTEROL NEBULIZED 2.5 MG/3 ML INHALATION PRN (05:16)
[2024-12-10] MEDS ORDERED: PNEUMONIA PROTOCOL UTILIZED 1 EACH MISC PO PRN (05:16)
[2024-12-10] MEDS ORDERED: INSULIN LISPRO (HumaLOG) 100 UNIT/ML 10 mL VL SQ ONE (06:37)
[2024-12-10 07:57] LABS: Glucose,Whole Blood 467 mg/dL (70-110)
[2024-12-10] MEDS: INSULIN REGULAR 100 UNIT/ML VIAL (IV) SQ STA (08:06)
[2024-12-10] MEDS: IPRATROPIUM-ALBUTEROL 3 ML NEB INHALATION SCH (08:31)
[2024-12-10 11:36] LABS: Glucose,Whole Blood 364 mg/dL (70-110)
[2024-12-10] MEDS: INSULIN GLARGINE (LANTUS) 100 UNIT/ML SYR SQ STA (11:58)
[2024-12-10] MEDS: ENOXAPARIN 40 MG/0.4 ML SYRINGE SQ SCH (12:00)
[2024-12-10] MEDS ORDERED: ACETAMINOPHEN TAB 325 MG TAB PO PRN (12:03)
[2024-12-10] MEDS: ACETAMINOPHEN IV (For NPO) 1,000 MG in EMPTY BAG 1 BAG IVPB STA (12:46)
--- NOTE | 2024-12-10 13:43 | P.HPIM ---
History of Present Illness H&P Date: 12/10/24 Chief Complaint: Weakness The patient is a 79 y/o F w/ a hx of T2DM (on insulin), CAD (with CABG performed in 2013), and hypertension who was brought to the ED for evaluation of worsening weakness, fatigue, and AMS that began a couple of days ago. The patient reports that she has just felt very tired and week over the last couple of days. When asked, she mentions some nausea and an episode of vomiting yesterday. The patient denies any fevers, chills, chest pain, SOB, cough, abdominal pain, or diarrhea. She also denies any recent sick contacts or recent travel. She reports that she takes insulin, gabapentin and carvedilol at home and has a hx of a triple bypass surgery in 2013. Review of Systems ROS negative except for as listed above in HPI. Past Medical History Past Medical History: Coronary Artery Disease (CAD), Chest Pain / Angina, Heart Failure, Diabetes Mellitus, GERD/Reflux, GI Bleed, Hypertension, Liver Disease, Sleep Apnea/CPAP/BIPAP Additional Past Medical History / Comment(s): anemia and has had several iron infusions/blood transfusions,past bleeding gastric ulcers, rectal bleed, nonalcoholic liver cirrhosis,,RLS, low back/L hip pain,. clausterphobia. insomnia, History of Any Multi-Drug Resistant Organisms: None Reported Past Surgical History: Hysterectomy, Orthopedic Surgery, Tonsillectomy Additional Past Surgical History / Comment(s): Hemorrhagic cyst removed from right ureter; Right foot surgery d/t crush injury; Left hip pain stimulator implanted, Steel iris in right arm, EGDs/colonoscopies, bone marrow aspirations, low back and cervical injections for pain, bilateral cataract removals with lens implants. Right middle and ring finger trigger release. Past Anesthesia/Blood Transfusion Reactions: No Reported Reaction, Motion Sickness Additional Past Anesthesia/Blood Transfusion Reaction / Comment(s): Pt has had several blood transfusions without reaction. Pt has clausterphobia. Past Psychological History: No Psychological Hx Reported Smoking Status: Former smoker Past Alcohol Use History: None Reported Past Drug Use History: None Reported - Past Family History Father Additional Family Medical History / Comment(s): Father was an alcoholic but was sober for the last 9 yrs of his life. Mother Family Medical History: Coronary Artery Disease (CAD), Diabetes Mellitus Additional Family Medical History / Comment(s): Low hgb. She during a colonoscopy. She had 4 vessel CABG Sister(s) Additional Family Medical History / Comment(s): heart stent Medications and Allergies Home Medications Medication Instructions Recorded Confirmed Type Cyclobenzaprine [Flexeril] 10 mg PO HS PRN 07/15/21 12/10/24 History Clopidogrel [Plavix] 75 mg PO DAILY 08/26/24 12/10/24 History Gabapentin [Neurontin] 300 mg PO HS 08/26/24 12/10/24 History Insulin Glargine,Hum.rec.anlog 64 units SQ HS 08/26/24 12/10/24 History [Lantus Solostar Pen] Insulin Glargine,Hum.rec.anlog 82 units SQ DAILY 08/26/24 12/10/24 History [Lantus Solostar Pen] Losartan Potassium 100 mg PO DAILY 08/26/24 12/10/24 History carvediloL [Coreg] 12.5 mg PO BID-W/MEALS 08/26/24 12/10/24 History Aspirin EC [Ecotrin Low Dose] 81 mg PO DAILY 09/18/24 12/10/24 History Atorvastatin [Lipitor] 40 mg PO DAILY 09/18/24 12/10/24 History traZODone HCL 75 mg PO HS 09/18/24 12/10/24 History HYDROcodone/APAP 10-325MG [[place] 1 tab PO QID PRN 12/10/24 12/10/24 History 10-325] Omeprazole 40 mg PO DAILY 12/10/24 12/10/24 History Allergies Allergy/AdvReac Type Severity Reaction Status Date / Time pentazocine [From [place]] AdvReac Hallucinati Verified 12/10/24 12:26 ons Physical Exam Vitals: Vital Signs Temp Pulse Resp BP Pulse Ox 12/10/24 07:55 98.2 F 87 16 182/82 98 12/10/24 07:00 91 17 163/73 95 12/10/24 03:05 95 18 158/79 96 12/10/24 02:00 99.4 F 12/10/24 00:26 104 H 20 164/61 98 12/09/24 23:19 101 F H 110 H 20 168/83 96 Intake and Output 12/09/24 12/10/2412/10/25 22:59 06:59 14:59 Other: Weight 63.503 kg Vital signs reviewed General: non toxic, no distress, appears at stated age, on reassessment, the patient appeared in mild distress. Derm: no unusual rashes/lesions, warm Head: atraumatic, normocephalic, symmetric Eyes: EOMI, anicteric sclera, pupils equal round reactive to light ENT: Nose and ears atraumatic Neck: No cervical lymphadenopathy, trachea midline, supple Mouth: no lip lesion, mucus membranes moist Cardiovascular: Regular rhythm. Tachycardic. Grade 3 systolic murmur appreciated. no edema Lungs: CTA bilateral, no rhonchi, no rales, no accessory muscle use Abdominal: soft, nontender to palpation, no guarding Ext: muscle strength 5 out of 5 in all 4 extremities grossly, no gross muscle atrophy Neuro: CN II-XI grossly intact, no gross focal neuro deficits Psych: On initial assessment, AOx3, she could tell me her name, where she was, and who the current president is. However, a few hours later on reassessment she was less alert and moaned when any questions were asked. Results CBC & Chem 7: 12/09/24 23:36 12/09/24 23:38 Labs: Abnormal Lab Results - Last 24 Hours (Table) 12/09/24 12/09/24 12/09/24 Range/Units 23:21 23:36 23:38 WBC 11.94 H (4.50-10.00) 10*3/uL Hgb 11.1 L (12.0-15.0) g/dL Hct 35.4 L (37.2-46.3) % MCV 76.0 L (80.0-97.0) fL MCH 23.8 L (27.0-32.0) pg MCHC 31.4 L (32.0-37.0) g/dL Immature Gran # 0.09 H (0.00-0.04) 10*3/uL Neutrophils # 10.42 H (1.80-7.70) 10*3/uL Lymphocytes # 0.82 L (0.90-5.00) 10*3/uL Eosinophils # 0.01 L (0.04-0.35) 10*3/uL Sodium 129 L (137-145) mmol/L Chloride 93 L (98-107) mmol/L Glucose 538 H* (74-99) mg/dL POC Glucose (mg/dL) 493 H (70-110) mg/dL Alkaline Phosphatase 193 H (38-126) U/L Urine Protein (Negative) Urine Glucose (UA) (Negative) Urine Ketones (Negative) Urine Blood (Negative) Urine Nitrite (Negative) Ur Leukocyte Esterase (Negative) Urine WBC (0-5) /hpf Urine Bacteria (None) /hpf Urine Opiates Screen (NotDetected) 12/10/24 12/10/24 12/10/24 Range/Units 00:26 00:26 07:53 WBC (4.50-10.00) 10*3/uL Hgb (12.0-15.0) g/dL Hct (37.2-46.3) % MCV (80.0-97.0) fL MCH (27.0-32.0) pg MCHC (32.0-37.0) g/dL Immature Gran # (0.00-0.04) 10*3/uL Neutrophils # (1.80-7.70) 10*3/uL Lymphocytes # (0.90-5.00) 10*3/uL Eosinophils # (0.04-0.35) 10*3/uL Sodium (137-145) mmol/L Chloride (98-107) mmol/L Glucose (74-99) mg/dL POC Glucose (mg/dL) 467 H (70-110) mg/dL Alkaline Phosphatase (38-126) U/L Urine Protein 2+ H (Negative) Urine Glucose (UA) 4+ H (Negative) Urine Ketones 1+ H (Negative) Urine Blood Small H (Negative) Urine Nitrite Positive H (Negative) Ur Leukocyte Esterase Small H (Negative) Urine WBC 19 H (0-5) /hpf Urine Bacteria Rare H (None) /hpf Urine Opiates Screen Detected H (NotDetected) Assessment and Plan Assessment: The patient is a 79 y/o F w/ a hx of T2DM (on insulin), CAD (with CABG performed in 2013), and hypertension who was brought to the ED for evaluation of worsening weakness, fatigue, and AMS that began a couple of days ago 1. Acute encephalopathy secondary to sepsis on arrival Leukocytosis #Likely secondary to UTI or possible pneumonia #Patient meets sepsis criteria: temp 101 on arrival, HR 110 on arrival #CXR performed in ED demonstrated small amount of interstitial opacities in left lung, underinflated lungs, and mild asymmetric pulmonary edema or pneumonia #UA demonstrated a small amount of blood, WBC, and nitrites #WBC 11.9 on arrival -Patient placed on Ceftriaxone 2gm IVPB Q24H and azithromycin 500 mg PO daily empirically -Given 2.1 L IV NS in ED -Urine cx and blood cx pending -Viral respiratory panel negative -Nebulized albuterol 2.5mg Q4H PRN and Ipratropium-abluterol nebulized 3mL QID -Legionella urine antigen pending -Procalcitonin ordered -Acetaminophen 1000mg IV ordered - Holding Flexeril, gabapentin, [place], trazodone 2. Hyperglycemia Glucose 538 on arrival, given 10 units SQ regular insulin -Sliding scale insulin ordered -Insulin glargine 40 units SQ daily at 0700 ordered -Consistent carbohydrate diet 3. Microcytic anemia #Patient has a history of GI bleed #Hgb 11.1 on arrival -Continue to monitor 3. Hyponatremia #Na 129 on arrival #Likely pseudohyponatremia due to hyperglycemia (corrected Na 140) -Continue to monitor 4. Hx of CAD, Heart failure, Liver disease, HTN, anemia -Restarted home meds DVT prophylaxis: Lovenox 40 mg SQ daily The patient is admitted with an anticipated greater than 2 midnight stay for evaluation of acute encephalopathy secondary to sepsis CODE STATUS: Unable to be determined due to patient's acute condition Anticipated discharge place: Home Brando Franks MD PGY-1 TY Dictation was produced using [employer] dictation software. please excuse any grammatical, word or spelling errors. I have seen and evaluated the patient today. Discussed with the resident and agree with the residents finding and plan as documented in the resident's note. Changes highlighted in blue font.
[2024-12-10 14:57] LABS: Glucose,Whole Blood 401 mg/dL (70-110)
[2024-12-10] MEDS: INSULIN LISPRO (HumaLOG) 100 UNIT/ML 10 mL VL SQ SCH (15:07)
[2024-12-10] MEDS: KETOROLAC 15 MG/ML 1 ML VIAL IVP STA (15:09)
[2024-12-10 16:30] LABS: Glucose,Whole Blood 311 mg/dL (70-110)
[2024-12-10] MEDS ORDERED: CYCLOBENZAPRINE 10 MG TAB PO PRN (20:07)
[2024-12-10] MEDS: HYDROcodone/APAP 10-325MG 1 EACH TAB PO PRN (20:14)
[2024-12-10 20:47] LABS: Glucose,Whole Blood 405 mg/dL (70-110)
[2024-12-10 23:04] LABS: Glucose,Whole Blood 320 mg/dL (70-110)
[2024-12-10] MEDS: INSULIN LISPRO (HumaLOG) 100 UNIT/ML 10 mL VL SQ ONE (23:32)
[2024-12-11 01:37] LABS: Glucose,Whole Blood 233 mg/dL (70-110)
[2024-12-11] MEDS: ONDANSETRON 4 MG/2 ML VIAL IVP STA ×2 (04:11→04:19)
[2024-12-11 05:17] LABS: Basophils # (A) 0.03 10*3/uL (0.00-0.10); Basophils % (A) 0.5 %; Eosinophils # (A) 0.05 10*3/uL (0.04-0.35); Eosinophils % (A) 0.8 %; HCT 31.2 % (37.2-46.3); Lymphocytes # (A) 0.84 10*3/uL (0.90-5.00); Lymphocytes % (A) 14.1 %; MCH 23.9 pg (27.0-32.0); MCHC 30.1 g/dL (32.0-37.0); MCV 79.2 fL (80.0-97.0); Monocytes # (A) 0.76 10*3/uL (0.20-1.00); Monocytes % (A) 12.7 %; Neutrophils # (A) 4.25 10*3/uL (1.80-7.70); Neutrophils % (A) 71.2 %; Platelet Count 121 10*3/uL (140-440); RBC 3.94 10*6/uL (4.10-5.20); RDW 14.6 % (11.5-14.5); WBC 5.97 10*3/uL (4.50-10.00)
[2024-12-11 05:28] LABS: HGB 9.4 g/dL (12.0-15.0)
[2024-12-11 05:33] LABS: African American GFR (CKD) >90 (>60 ml/min/1.73 sqM); Anion Gap 12 mmol/L; Blood Urea Nitrogen 20 mg/dL (7-17); Calcium 8.8 mg/dL (8.4-10.2); Carbon Dioxide 23 mmol/L (22-30); Chloride 96 mmol/L (98-107); Glucose 157 mg/dL (74-99); Non-African American GFR(CKD) 88 (>60 ml/min/1.73 sqM); Potassium 3.7 mmol/L (3.5-5.1); Sodium 131 mmol/L (137-145)
[2024-12-11 06:06] LABS: Glucose,Whole Blood 212 mg/dL (70-110)
[2024-12-11] MEDS: ASPIRIN 81 MG PO SCH (07:57)
[2024-12-11] MEDS: INSULIN GLARGINE (LANTUS) 100 UNIT/ML SYR SQ SCH ×2 (07:57→21:00)
[2024-12-11] MEDS: LOSARTAN 50 MG TAB PO SCH (07:57)
[2024-12-11] MEDS: ATORVASTATIN 40 MG TAB PO SCH (07:58)
[2024-12-11] MEDS: PANTOPRAZOLE 40 MG TABLET PO SCH (07:58)
[2024-12-11] MEDS: AZITHROMYCIN 500 MG TAB PO SCH (07:58)
[2024-12-11] MEDS: CLOPIDOGREL 75 MG TAB PO SCH (07:58)
[2024-12-11 11:42] LABS: Glucose,Whole Blood 288 mg/dL (70-110)
--- NOTE | 2024-12-11 12:03 | P.PN ---
Subjective Progress Note Date: 12/11/24 Subjective: Patient seen and examined at bedside. No acute events overnight. She is feeling a lot better today. Denies any new complaints. Pertinent positives and negatives as discussed above, a complete review of systems was performed and all other systems are negative. Vitals Signs Reviewed. General: Nontoxic, no distress, appears at stated age Derm: Warm, dry Head: Atraumatic, normocephalic, symmetric Eyes: EOMI, no lid lag, anicteric sclera Mouth: No lip lesion, mucus membranes moist Cardiovascular: S1S2 reg, systolic murmur Lungs: CTA bilateral, no rhonchi, no rales, no accessory muscle use Abdominal: Soft, nontender to palpation, no guarding, no appreciable organomegaly Ext: No gross muscle atrophy, no edema, no contractures Neuro: CN II-XI grossly intact, no focal neuro deficits Psych: Alert, oriented, appropriate affect Data Reviewed Today: Pertinent Labs: WBC 5.97, hemoglobin 9.4, platelet 121, sodium 131, creatinine 0.6, blood sugars range between 157-233 Imaging: No new imaging Assessment and Plan: Active: Sepsis secondary to urinary tract infection Klebsiella bacteremia Acute septic encephalopathy, resolved - Unlikely to be pneumonia, azithromycin discontinued - Continue IV ceftriaxone 2 g every 24 hours - Kidney ultrasound ordered, may consider CT abdomen pelvis - Urine culture still pending, likely also growing Klebsiella Type 2 diabetes, A1c 13.5 Hyperglycemia - On Lantus 40 daily, also started on Lantus 30 units nightly - Continue sliding scale insulin, monitor for hypoglycemia Hyponatremia, patient currently euvolemic - Continue to monitor Microcytic anemia Mild thrombocytopenia - Likely in the setting of acute illness - Continue to monitor Chronic: Hypertension GERD Dyslipidemia CAD status post CABG Heart failure? DVT ppx: Lovenox Code status: Full code Anticipated discharge place: Pending clinical course Anticipated discharge time: Pending clinical course Objective - Vital Signs Vital signs: Vital Signs Temp 99.5 F 12/11/24 07:11 Pulse 86 12/11/24 07:11 Resp 16 12/11/24 07:11 BP 147/70 12/11/24 07:11 Pulse Ox 96 12/11/24 07:11 FiO2 Intake & Output 12/10/24 12/11/24 12/11/24 18:59 06:59 18:59 Intake Total 120 Output Total 350 Balance -350 120 Weight 63.503 kg Intake: Oral 120 Output: Urine 350 Other: Voiding Method Diaper Diaper External Catheter External Catheter - Labs CBC & Chem 7: 12/11/24 03:45 12/11/24 03:45 Labs: Abnormal Lab Results - Last 24 Hours (Table) 12/09/24 12/10/24 12/10/24 Range/Units 23:36 14:56 16:28 RBC (4.10-5.20) 10*6/uL Hgb (12.0-15.0) g/dL Hct (37.2-46.3) % MCV (80.0-97.0) fL MCH (27.0-32.0) pg MCHC (32.0-37.0) g/dL RDW (11.5-14.5) % Plt Count (140-440) 10*3/uL Lymphocytes # (0.90-5.00) 10*3/uL Sodium (137-145) mmol/L Chloride (98-107) mmol/L BUN (7-17) mg/dL Glucose (74-99) mg/dL POC Glucose (mg/dL) 401 H 311 H (70-110) mg/dL Hemoglobin A1c 13.5 H (<=6.0) % 12/10/24 12/10/24 12/11/24 Range/Units 20:45 23:02 01:35 RBC (4.10-5.20) 10*6/uL Hgb (12.0-15.0) g/dL Hct (37.2-46.3) % MCV (80.0-97.0) fL MCH (27.0-32.0) pg MCHC (32.0-37.0) g/dL RDW (11.5-14.5) % Plt Count (140-440) 10*3/uL Lymphocytes # (0.90-5.00) 10*3/uL Sodium (137-145) mmol/L Chloride (98-107) mmol/L BUN (7-17) mg/dL Glucose (74-99) mg/dL POC Glucose (mg/dL) 405 H 320 H 233 H (70-110) mg/dL Hemoglobin A1c (<=6.0) % 12/11/24 12/11/24 12/11/24 Range/Units 03:45 03:45 06:04 RBC 3.94 L (4.10-5.20) 10*6/uL Hgb 9.4 L D (12.0-15.0) g/dL Hct 31.2 L (37.2-46.3) % MCV 79.2 L (80.0-97.0) fL MCH 23.9 L (27.0-32.0) pg MCHC 30.1 L (32.0-37.0) g/dL RDW 14.6 H (11.5-14.5) % Plt Count 121 L (140-440) 10*3/uL Lymphocytes # 0.84 L (0.90-5.00) 10*3/uL Sodium 131 L (137-145) mmol/L Chloride 96 L (98-107) mmol/L BUN 20 H (7-17) mg/dL Glucose 157 H (74-99) mg/dL POC Glucose (mg/dL) 212 H (70-110) mg/dL Hemoglobin A1c (<=6.0) % 12/11/24 Range/Units 11:41 RBC (4.10-5.20) 10*6/uL Hgb (12.0-15.0) g/dL Hct (37.2-46.3) % MCV (80.0-97.0) fL MCH (27.0-32.0) pg MCHC (32.0-37.0) g/dL RDW (11.5-14.5) % Plt Count (140-440) 10*3/uL Lymphocytes # (0.90-5.00) 10*3/uL Sodium (137-145) mmol/L Chloride (98-107) mmol/L BUN (7-17) mg/dL Glucose (74-99) mg/dL POC Glucose (mg/dL) 288 H (70-110) mg/dL Hemoglobin A1c (<=6.0) % Microbiology - Last 24 Hours (Table) 12/10/24 00:26 Urine Culture - Preliminary Urine,Voided Gram Neg Bacilli 12/09/24 23:38 Blood Culture Gram Stain - Preliminary Blood Blood Culture - Preliminary Molecular ID
--- NOTE | 2024-12-11 13:17 | US ---
EXAMINATION TYPE: US kidneys/renal and bladder DATE OF EXAM: 12/11/2024 COMPARISON: US Liver 08/17/2023 CT ABD/PEL 02/23/2021 CLINICAL INDICATION: Female, 79 years old with history of uti, sepsis, bacteremia; Hx Pyelonephritis, HTN, and DM. Nausea - patient denies any other signs, symptoms, or relevant history TECHNIQUE: Grayscale imaging of the bilateral kidneys and urinary bladder: FINDINGS: EXAM MEASUREMENTS: Right Kidney: 12.0 x 5.5 x 5.4 cm Left Kidney: 11.8 x 5.4 x 5.1 cm Post Void Residual Volume: NA mL Right Kidney: wnl, no evidence for hydronephrosis, mass or renal calculus. Left Kidney: wnl, no evidence for hydronephrosis, mass or renal calculus. Bladder: Not distended - not able to assess Bilateral Jets seen: NA Normal Post Void Residual: NA There is no evidence for hydronephrosis at this point in time. No nephrolithiasis is seen. No leigh s are identified. IMPRESSION: No evidence for acute process. No obstructive uropathy. [facility], , 12/11/2024 1:14 PM
[2024-12-11 16:34] LABS: Glucose,Whole Blood 553 mg/dL (70-110)
[2024-12-11 20:28] LABS: Glucose,Whole Blood 262 mg/dL (70-110)
[2024-12-12 06:10] LABS: Glucose,Whole Blood 185 mg/dL (70-110)
[2024-12-12 08:38] LABS: Anion Gap 12.20 mmol/L (4.00-12.00); BUN/Creat Ratio 15.81 Ratio (12.00-20.00); Blood Urea Nitrogen 25.3 mg/dL (9.0-27.0); Calcium 8.5 mg/dL (8.7-10.3); Carbon Dioxide 20.8 mmol/L (21.6-31.8); Chloride 98 mmol/L (96-109); Glucose 208 mg/dL (70-110); Potassium 4.0 mmol/L (3.5-5.5); Sodium 131 mmol/L (135-145)
[2024-12-12 09:57] LABS: Basophils # (A) 0.03 X 10*3/uL (0.00-0.10); Basophils % (A) 0.7 %; Eosinophils # (A) 0.07 X 10*3/uL (0.04-0.35); Eosinophils % (A) 1.6 %; HCT 32.8 % (37.2-46.3); HGB 9.6 g/dL (12.0-15.0); Immature Grans, Automated 0.40 %; Lymphocytes # (A) 0.95 X 10*3/uL (0.90-5.00); Lymphocytes % (A) 21.1 %; MCH 24.0 pg (27.0-32.0); MCHC 29.3 g/dL (32.0-37.0); MCV 82.0 FL (80.0-97.0); Monocytes # (A) 0.55 X 10*3/uL (0.20-1.00); Monocytes % (A) 12.2 %; NRBC Per 100 WBC 0 X 10*3/uL (0.00-0.01); Neutrophils # (A) 2.89 X 10*3/uL (1.80-7.70); Neutrophils % (A) 64.0 %; Platelet Count 125 X 10*3/uL (140-440); RBC 4.00 X 10*6/uL (4.10-5.20); RDW 14.9 % (11.5-14.5); WBC 4.51 X 10*3/uL (4.50-10.00)
[2024-12-12 11:16] LABS: Glucose,Whole Blood 232 mg/dL (70-110)
[2024-12-12 13:40] VITALS: BMI 24.7
[2024-12-12 14:21] VITALS: RESP 18
--- NOTE | 2024-12-12 14:34 | P.PN ---
Subjective Progress Note Date: 12/12/24 Patient mentions that she is feeling better today. Understands plan for continued treatment on antibiotics and observation in the hospital. No worsening pain or dysuria. Objective - Vital Signs Vital signs: Vital Signs Temp 98.1 F 12/12/24 07:13 Pulse 71 12/12/24 07:13 Resp 17 12/12/24 07:13 BP 121/65 12/12/24 07:13 Pulse Ox 94 L 12/12/24 07:13 FiO2 Intake & Output 12/11/24 12/12/24 12/12/24 18:59 06:59 18:59 Intake Total 1160 Output Total 200 Balance 960 Weight 63.503 kg Intake: Oral 1160 Output: Urine 200 Other: Voiding Method Diaper Toilet Toilet External Catheter Diaper Diaper # Voids 1 2 - Exam Vitals Signs Reviewed. General: Nontoxic, no distress, appears at stated age, Standing up to use restroom when I entered the room. Derm: Warm, dry Head: Atraumatic, normocephalic, symmetric Eyes: EOMI, no lid lag, anicteric sclera Mouth: No lip lesion, mucus membranes moist Cardiovascular: S1S2 reg, systolic murmur Lungs: CTA bilateral, no rhonchi, no rales, no accessory muscle use Abdominal: Soft, nontender to palpation, no guarding, no appreciable organomegaly Ext: No gross muscle atrophy, no edema, no contractures Neuro: CN II-XI grossly intact, no focal neuro deficits Psych: Alert, oriented, appropriate affect - Labs CBC & Chem 7: 12/12/24 03:33 12/12/24 03:33 Labs: Abnormal Lab Results - Last 24 Hours (Table) 12/11/24 12/11/24 12/12/24 Range/Units 16:32 20:27 03:33 RBC 4.00 L (4.10-5.20) X 10*6/uL Hgb 9.6 L (12.0-15.0) g/dL Hct 32.8 L (37.2-46.3) % MCH 24.0 L (27.0-32.0) pg MCHC 29.3 L (32.0-37.0) g/dL RDW 14.9 H (11.5-14.5) % Plt Count 125 L (140-440) X 10*3/uL Sodium (135-145) mmol/L Carbon Dioxide (21.6-31.8) mmol/L Anion Gap (4.00-12.00) mmol/L Creatinine (0.6-1.5) mg/dL Est GFR (CKD-EPI) (>=60) Glucose (70-110) mg/dL POC Glucose (mg/dL) 553 H* 262 H (70-110) mg/dL Calcium (8.7-10.3) mg/dL 12/12/24 12/12/24 12/12/24 Range/Units 03:33 06:08 11:15 RBC (4.10-5.20) X 10*6/uL Hgb (12.0-15.0) g/dL Hct (37.2-46.3) % MCH (27.0-32.0) pg MCHC (32.0-37.0) g/dL RDW (11.5-14.5) % Plt Count (140-440) X 10*3/uL Sodium 131 L (135-145) mmol/L Carbon Dioxide 20.8 L (21.6-31.8) mmol/L Anion Gap 12.20 H (4.00-12.00) mmol/L Creatinine 1.6 H (0.6-1.5) mg/dL Est GFR (CKD-EPI) 33 L (>=60) Glucose 208 H (70-110) mg/dL POC Glucose (mg/dL) 185 H 232 H (70-110) mg/dL Calcium 8.5 L (8.7-10.3) mg/dL Microbiology - Last 24 Hours (Table) 12/10/24 00:26 Urine Culture - Final Urine,Voided Klebsiella oxytoca 12/09/24 23:38 Blood Culture Gram Stain - Final Blood Blood Culture - Final Klebsiella oxy Raoultella orni Molecular ID Assessment and Plan Assessment: Results reviewed today: WBC: 4.51, Hgb: 9.6, Na: 131, Cr 1.6, BUN 25.3, glucose 208 US kidneys/ renal and bladder showed no evidence for hydronephrosis or nephrolithiasis. No masses. Active: Sepsis secondary to urinary tract infection Klebsiella bacteremia Acute septic encephalopathy, resolved - Continue IV ceftriaxone 2 g every 24 hours - Urine culture growing Klebsiella LOLA Cr 1.6 from 0.6 on 12/11/2024 BUN: 25.3 Anion gap 12.2 - Monitor I+O's - Holding losartan -Continue to monitor Type 2 diabetes, A1c 13.5 Hyperglycemia - Lantus 40 BID - Continue sliding scale insulin, monitor for hypoglycemia Hyponatremia, patient currently euvolemic - Continue to monitor Microcytic anemia Mild thrombocytopenia - Likely in the setting of acute illness - Continue to monitor Chronic: Hypertension GERD Dyslipidemia CAD status post CABG Heart failure? DVT ppx: Lovenox Code status: Full code Anticipated discharge place: Pending clinical course Anticipated discharge time: Pending clinical course I have seen and evaluated the patient today. Discussed with the resident and agree with the residents finding and plan as documented in the resident's note. Changes highlighted in blue font.
[2024-12-12 17:24] LABS: Glucose,Whole Blood 469 mg/dL (70-110)
[2024-12-12 21:17] LABS: Glucose,Whole Blood 391 mg/dL (70-110)
[2024-12-12] MEDS: INSULIN GLARGINE (LANTUS) 100 UNIT/ML SYR SQ SCH (21:24)
[2024-12-13 04:11] LABS: Basophils # (A) 0.02 10*3/uL (0.00-0.10); Basophils % (A) 0.4 %; Eosinophils # (A) 0.10 10*3/uL (0.04-0.35); Eosinophils % (A) 2.1 %; HCT 27.2 % (37.2-46.3); HGB 8.2 g/dL (12.0-15.0); Lymphocytes # (A) 1.53 10*3/uL (0.90-5.00); Lymphocytes % (A) 32.2 %; MCH 23.6 pg (27.0-32.0); MCHC 30.1 g/dL (32.0-37.0); MCV 78.4 fL (80.0-97.0); Monocytes # (A) 0.59 10*3/uL (0.20-1.00); Monocytes % (A) 12.4 %; Neutrophils # (A) 2.49 10*3/uL (1.80-7.70); Neutrophils % (A) 52.5 %; Platelet Count 128 10*3/uL (140-440); RBC 3.47 10*6/uL (4.10-5.20); RDW 14.9 % (11.5-14.5); WBC 4.75 10*3/uL (4.50-10.00)
[2024-12-13 04:28] LABS: African American GFR (CKD) 50 (>60 ml/min/1.73 sqM); Anion Gap 7 mmol/L; Blood Urea Nitrogen 27 mg/dL (7-17); Calcium 8.6 mg/dL (8.4-10.2); Carbon Dioxide 24 mmol/L (22-30); Chloride 101 mmol/L (98-107); Glucose 141 mg/dL (74-99); Non-African American GFR(CKD) 44 (>60 ml/min/1.73 sqM); Potassium 4.0 mmol/L (3.5-5.1); Sodium 132 mmol/L (137-145)
[2024-12-13 06:38] LABS: Glucose,Whole Blood 122 mg/dL (70-110)
[2024-12-13 07:34] VITALS: BP 139/79; PULSE 67; TEMP 98.6
[2024-12-13] MEDS: ENOXAPARIN 30 MG/0.3 ML SYRINGE SQ SCH (08:21)
--- NOTE | 2024-12-13 10:27 | P.DS ---
Providers Date of admission: 12/10/24 05:16 Expected date of discharge: 12/13/24 Attending physician: Carter Mcdonald MD Primary care physician: Stated None Hospital Course: Discharge Diagnosis: Sepsis secondary to UTI Klebsiella bacteremia Acute septic encephalopathy, resolved Hospital Course: The patient is a 79 y/o F w/ a hx of T2DM (on insulin), CAD (with CABG performed in 2013), and hypertension who was brought to the ED for evaluation of worsening weakness, fatigue, and AMS that began a couple of days ago. The patient reports that she has just felt very tired and week over the last couple of days. When asked, she mentions some nausea and an episode of vomiting yesterday. The patient denies any fevers, chills, chest pain, SOB, cough, abdominal pain, or diarrhea. She also denies any recent sick contacts or recent travel. She reports that she takes insulin, gabapentin and carvedilol at home and has a hx of a triple bypass surgery in 2013. In the ED, patient was placed on ceftriaxone and azithromycin empirically for suspected pneumonia. CXR performed in ED demonstrated small amount of interstitial opacities in left lung, underinflated lungs, and mild asymmetric pulmonary edema or pneumonia. UA demonstrated a small amount of blood, WBC, and nitrites. Urine and blood cultures grew Klebsiella without resistance mechanism. Ceftriaxone was continued while admitted. US kidneys/renal and bladder on 12/11/2024 was negative for hydronephrosis or nephrolithiasis. No masses were identified. Patient was placed on sliding scale insulin along with 40 units insulin lantus BID while admitted. Patient was continued on aspirin atorvastatin carvedilol, clopidogrel, cyclobenzaprine, protonix, and home hydrocodone while admitted. Losartan was held due to elevated creatinine. Patient seen and examined at bedside. Vital signs reviewed and stable. Physical examination: Vital signs reviewed General: non toxic, no distress, appears at stated age, normal weight Derm: no unusual rashes/lesions, warm Head: atraumatic, normocephalic, symmetric Eyes: EOMI, anicteric sclera, pupils equal round reactive to light ENT: Nose and ears atraumatic Neck: No cervical lymphadenopathy, trachea midline, supple Mouth: no lip lesion, mucus membranes moist Cardiovascular: S1S2 reg, systolic murmur, positive dorsalis pedis pulse bilateral, no edema Lungs: CTA bilateral, no rhonchi, no rales, no accessory muscle use Abdominal: soft, nontender to palpation, no guarding Ext: muscle strength 5 out of 5 in all 4 extremities grossly, no gross muscle atrophy Neuro: CN II-XI grossly intact, no gross focal neuro deficits Psych: Alert, oriented to person, place, and time A total of greater than 30 minutes of time were spent preparing this complex discharge summary. Patient was discharged on 12/13/2024. Patient was sent home with a prescription for cefdinir 300 mg PO Q12Hr for 4 days. Patient was also discharged on Lantus 40 units BID and her home medications except for losartan due to elevated creatinine. Recommended to follow up with PCP in 1-2 days and repeat CBC and BMP in 3 days. Brando Franks MD PGY-1 TY Dictation was produced using [employer] dictation software. please excuse any grammatical, word or spelling errors. I have seen and evaluated the patient today. Discussed with the resident and agree with the residents finding and plan as documented in the resident's note. Changes highlighted in blue font. Patient Condition at Discharge: Fair Plan - Discharge Summary Discharge Rx Participant: No New Discharge Prescriptions: New Cefdinir 300 mg PO Q12HR #8 cap Continue carvediloL [Coreg] 12.5 mg PO BID-W/MEALS Gabapentin [Neurontin] 300 mg PO HS traZODone HCL 75 mg PO HS HYDROcodone/APAP 10-325MG [[place] 10-325] 1 tab PO QID PRN PRN Reason: Pain Cyclobenzaprine [Flexeril] 10 mg PO HS PRN PRN Reason: Muscle Spasm Clopidogrel [Plavix] 75 mg PO DAILY Aspirin EC [Ecotrin Low Dose] 81 mg PO DAILY Atorvastatin [Lipitor] 40 mg PO DAILY Omeprazole 40 mg PO DAILY Changed Insulin Glargine,Hum.rec.anlog [Lantus Solostar Pen] 40 units SQ HS #0 Insulin Glargine,Hum.rec.anlog [Lantus Solostar Pen] 40 units SQ DAILY #0 Discontinued Losartan Potassium 100 mg PO DAILY Discharge Medication List Cyclobenzaprine [Flexeril] 10 mg PO HS PRN 07/15/21 [History] Clopidogrel [Plavix] 75 mg PO DAILY 08/26/24 [History] Gabapentin [Neurontin] 300 mg PO HS 08/26/24 [History] carvediloL [Coreg] 12.5 mg PO BID-W/MEALS 08/26/24 [History] Aspirin EC [Ecotrin Low Dose] 81 mg PO DAILY 09/18/24 [History] Atorvastatin [Lipitor] 40 mg PO DAILY 09/18/24 [History] traZODone HCL 75 mg PO HS 09/18/24 [History] HYDROcodone/APAP 10-325MG [[place] 10-325] 1 tab PO QID PRN 12/10/24 [History] Omeprazole 40 mg PO DAILY 12/10/24 [History] Cefdinir 300 mg PO Q12HR #8 cap 12/13/24 [Rx] Insulin Glargine,Hum.rec.anlog [Lantus Solostar Pen] 40 units SQ DAILY #0 12/13/24 [Rx] Insulin Glargine,Hum.rec.anlog [Lantus Solostar Pen] 40 units SQ HS #0 12/13/24 [Rx] Follow up Appointment(s)/Referral(s): Giovanni Hanks DO [REFERRING] - 1-2 Days (office busy at time of discharge Please call to schedule appointment ) Ambulatory/Diagnostic Orders: Basic Metabolic Panel [LAB.AMB] Time Frame: 3 Days, Location: None Selected Complete Blood Count w/diff [LAB.AMB] Time Frame: 3 Days, Location: None Selected Patient Instructions/Handouts: Urinary Tract Infection in Women (DC) Activity/Diet/Wound Care/Special Instructions: Please see PCP and get repeat bloodwork in 3 days Discharge Disposition: HOME SELF-CARE
[2024-12-13 11:18] LABS: Glucose,Whole Blood 271 mg/dL (70-110)
== END 2024-12-13 12:10 | disposition home or self-care (01) | DRG 871 ==
LOC: EC 23:02 → 4SSUR 12-10 05:16
PROVIDERS: ADMIT Student in an Organized Health Care Education/Training Program; ATTEND Student in an Organized Health Care Education/Training Program
DX: A41.89 Other specified sepsis (principal); G93.41 Metabolic encephalopathy; D69.6 Thrombocytopenia, unspecified; E87.1 Hypo-osmolality and hyponatremia; I11.0 Hypertensive heart disease with heart failure; E11.65 Type 2 diabetes mellitus with hyperglycemia; D50.9 Iron deficiency anemia, unspecified; N17.9 Acute kidney failure, unspecified; N39.0 Urinary tract infection, site not specified; R65.20 Severe sepsis without septic shock; I50.9 Heart failure, unspecified; Z79.4 Long term (current) use of insulin; I25.10 Atherosclerotic heart disease of native coronary artery without angina pectoris; K21.9 Gastro-esophageal reflux disease without esophagitis; B96.1 Klebsiella pneumoniae [K. pneumoniae] as the cause of diseases classified elsewhere; E78.5 Hyperlipidemia, unspecified; Z95.1 Presence of aortocoronary bypass graft; Z79.02 Long term (current) use of antithrombotics/antiplatelets; Z79.82 Long term (current) use of aspirin; Z79.84 Long term (current) use of oral hypoglycemic drugs; Z79.899 Other long term (current) drug therapy; Z87.891 Personal history of nicotine dependence; Z87.19 Personal history of other diseases of the digestive system
CPT/HCPCS: 36415; 71046; 76770; 80048; 80053; 80306; 81001; 82009; 83036; 83605; 83880; 84145; 84484; 85025; 87040; 87077; 87086; 87186; 87449; 87636; 93005; 96361; 96365; 96367; 96372; 96375; 99291

== ENCOUNTER 2024-12-16 10:38 | Emergency (ER) | payer MEDICARE ==
[2024-12-16 10:44] LABS: Glucose,Whole Blood >600 mg/dL (70-110)
[2024-12-16 10:45] VITALS: BP 147/67; PULSE 79; RESP 18; TEMP 97.9
[2024-12-16] MEDS ORDERED: Potassium Replacement Protocol 1 EACH MISC MISCELLANE PRN (11:38)
[2024-12-16] MEDS ORDERED: Magnesium Replacement Protocol 1 EACH MISC MISCELLANE PRN (11:38)
[2024-12-16] MEDS ORDERED: DEXTROSE 50% SYRINGE 50 ML IVP PRN ×4 (11:38→14:54)
[2024-12-16 12:32] LABS: Basophils # (A) 0.05 10*3/uL (0.00-0.10); Basophils % (A) 0.9 %; Eosinophils # (A) 0.08 10*3/uL (0.04-0.35); Eosinophils % (A) 1.4 %; HCT 30.8 % (37.2-46.3); HGB 9.5 g/dL (12.0-15.0); Lymphocytes # (A) 1.25 10*3/uL (0.90-5.00); Lymphocytes % (A) 21.9 %; MCH 23.8 pg (27.0-32.0); MCHC 30.8 g/dL (32.0-37.0); MCV 77.0 fL (80.0-97.0); Monocytes # (A) 0.41 10*3/uL (0.20-1.00); Monocytes % (A) 7.2 %; Neutrophils # (A) 3.87 10*3/uL (1.80-7.70); Neutrophils % (A) 67.7 %; Platelet Count 177 10*3/uL (140-440); RBC 4.00 10*6/uL (4.10-5.20); RDW 14.6 % (11.5-14.5); WBC 5.71 10*3/uL (4.50-10.00)
[2024-12-16 12:33] LABS: Bilirubin,Urine Negative (Negative); Blood,Urine Negative (Negative); Color,Urine Colorless; Glucose,Urine (UA) 4+ (Negative); Ketones,Urine Negative (Negative); Leukocyte Esterase,Urine Negative (Negative); Nitrite,Urine Negative (Negative); PH, Urine 6.0 (5.0-8.0); Protein,Urine Trace (Negative); Specific Gravity,Urine 1.025 (1.001-1.035); Urobilinogen,Urine <2.0 mg/dL (<2.0)
[2024-12-16 12:35] LABS: VBG PCO2 40.0 mmHg (37-51); VBG PH 7.47 (7.31-7.41)
[2024-12-16 12:41] LABS: VBG HCO3 28.0 mmol/L (24-28)
[2024-12-16] MEDS: SODIUM CHLORIDE 0.9% 1,000 ML IV ONE (12:43)
[2024-12-16] MEDS: SODIUM CHLORIDE 0.9% 1,000 ML IV SCH (12:43)
[2024-12-16] MEDS: INSULIN REGULAR 100 UNIT in SODIUM CHLORIDE 0.9% 100 ML IV SCH (12:44)
[2024-12-16] MEDS: INSULIN REGULAR BOLUS (FROM DRIP BAG) IV ONE (12:48)
[2024-12-16 12:53] LABS: African American GFR (CKD) 76 (>60 ml/min/1.73 sqM); Anion Gap 9 mmol/L; Blood Urea Nitrogen 10 mg/dL (7-17); Carbon Dioxide 28 mmol/L (22-30); Chloride 93 mmol/L (98-107); Non-African American GFR(CKD) 66 (>60 ml/min/1.73 sqM); Potassium 4.1 mmol/L (3.5-5.1); Sodium 130 mmol/L (137-145)
[2024-12-16 13:08] LABS: Glucose 611 mg/dL (74-99)
[2024-12-16 13:33] LABS: Glucose,Whole Blood 418 mg/dL (70-110)
--- NOTE | 2024-12-16 13:36 | ED ---
General Adult HPI - General Chief complaint: Recheck/Abnormal Lab/Rx Stated complaint: high sugar/type 2 Time Seen by Provider: 12/16/24 10:40 Source: patient, RN notes reviewed, old records reviewed Mode of arrival: wheelchair Limitations: no limitations - History of Present Illness Initial comments: This is a 79-year-old female who presents to the emergency department complaining that her sugar was high. Patient states she feels weak. Patient states that she has no fever chills. Patient denies any abdominal pain. Patient has nausea vomiting diarrhea. Patient denies any chest pain palpitations or difficulty breathing. Patient states she was recently diagnosed with UTI. - Related Data Home Medications Medication Instructions Recorded Confirmed Cyclobenzaprine [Flexeril] 10 mg PO HS PRN 07/15/21 12/10/24 Clopidogrel [Plavix] 75 mg PO DAILY 08/26/24 12/10/24 Gabapentin [Neurontin] 300 mg PO HS 08/26/24 12/10/24 carvediloL [Coreg] 12.5 mg PO BID-W/MEALS 08/26/24 12/10/24 Aspirin EC [Ecotrin Low Dose] 81 mg PO DAILY 09/18/24 12/10/24 Atorvastatin [Lipitor] 40 mg PO DAILY 09/18/24 12/10/24 traZODone HCL 75 mg PO HS 09/18/24 12/10/24 HYDROcodone/APAP 10-325MG [[place] 1 tab PO QID PRN 12/10/24 12/10/24 10-325] Omeprazole 40 mg PO DAILY 12/10/24 12/10/24 Previous Rx's Medication Instructions Recorded Cefdinir 300 mg PO Q12HR #8 cap 12/13/24 Insulin Glargine,Hum.rec.anlog 40 units SQ DAILY #0 12/13/24 [Lantus Solostar Pen] Insulin Glargine,Hum.rec.anlog 40 units SQ HS #0 12/13/24 [Lantus Solostar Pen] Allergies Allergy/AdvReac Type Severity Reaction Status Date / Time pentazocine [From Lashell] AdvReac Hallucinati Verified 12/16/24 10:45 ons Review of Systems ROS Statement: Those systems with pertinent positive or pertinent negative responses have been documented in the HPI. ROS Other: All systems not noted in ROS Statement are negative. Past Medical History Past Medical History: Coronary Artery Disease (CAD), Chest Pain / Angina, Heart Failure, Diabetes Mellitus, GERD/Reflux, GI Bleed, Hypertension, Liver Disease, Sleep Apnea/CPAP/BIPAP Additional Past Medical History / Comment(s): anemia and has had several iron infusions/blood transfusions,past bleeding gastric ulcers, rectal bleed, nonalcoholic liver cirrhosis,,RLS, low back/L hip pain,. clausterphobia. insomnia, History of Any Multi-Drug Resistant Organisms: None Reported Past Surgical History: Hysterectomy, Orthopedic Surgery, Tonsillectomy Additional Past Surgical History / Comment(s): Hemorrhagic cyst removed from right ureter; Right foot surgery d/t crush injury; Left hip pain stimulator implanted, Steel iris in right arm, EGDs/colonoscopies, bone marrow aspirations, low back and cervical injections for pain, bilateral cataract removals with lens implants. Right middle and ring finger trigger release. Past Anesthesia/Blood Transfusion Reactions: No Reported Reaction, Motion Sickness Additional Past Anesthesia/Blood Transfusion Reaction / Comment(s): Pt has had several blood transfusions without reaction. Pt has clausterphobia. Past Psychological History: No Psychological Hx Reported Smoking Status: Former smoker Past Alcohol Use History: None Reported Past Drug Use History: None Reported - Past Family History Father Additional Family Medical History / Comment(s): Father was an alcoholic but was sober for the last 9 yrs of his life. Mother Family Medical History: Coronary Artery Disease (CAD), Diabetes Mellitus Additional Family Medical History / Comment(s): Low hgb. She during a colonoscopy. She had 4 vessel CABG Sister(s) Additional Family Medical History / Comment(s): heart stent General Exam - General Exam Comments Initial Comments: GENERAL: Patient is well-developed and well-nourished. Patient is nontoxic and well- hydrated and is in no acute distress. ENT: Neck is soft and supple. No significant lymphadenopathy is noted. Oropharynx is clear. Dry mucous membranes. Neck has full range of motion without eliciting any pain. EYES: The sclera were anicteric and conjunctiva were pink and moist. Extraocular movements were intact and pupils were equal round and reactive to light. Eyelids were unremarkable. PULMONARY: Unlabored respirations. Good breath sounds bilaterally. No audible rales rh onchi or wheezing was noted. CARDIOVASCULAR: There is a regular rate and rhythm without any murmurs gallops or rubs. ABDOMEN: Soft and nontender with normal bowel sounds. SKIN: Skin is clear with no lesions or rashes and otherwise unremarkable. NEUROLOGIC: Patient is alert and oriented x3. Cranial nerves II through XII are grossly intact. Motor and sensory are also intact. Normal speech, volume and content. Symmetrical smile. MUSCULOSKELETAL: Normal extremities with adequate strength and full range of motion. No lower extremity swelling or edema. No calf tenderness. LYMPHATICS: No significant lymphadenopathy is noted PSYCHIATRIC: Normal psychiatric evaluation. Limitations: no limitations Course Vital Signs 12/16/24 10:38 Temperature 97.9 F Pulse Rate 79 Respiratory 18 Rate Blood Pressure 147/67 O2 Sat by Pulse 97 Oximetry Medical Decision Making - Medical Decision Making EKG is interpreted by myself and EKG shows sinus rhythm at 70 bpm IA 165 QRS is 85 QT interval is 402 QTc is 423. Patient's EKG shows no ST segment elevation or depression. Was pt. sent in by a medical professional or institution (, PA, J2EE ARCHITECT, urgent care, hospital, or senior living...) When possible be specific @ -No Did you speak to anyone other than the patient for history (EMS, parent, family, police, friend...)? What history was obtained from this source @ -No Did you review nursing and triage notes (agree or disagree)? Why? @ -I reviewed and agree with nursing and triage notes Were old charts reviewed (outside hosp., previous admission, EMS record, old EKG, old radiological studies, urgent care reports/EKG's, senior living records)? Report findings @ -No old charts were reviewed Differential Diagnosis? @ -Differential Weakness: Hypoglycemia, shock, sepsis, hyponatremia, anemia, infection, MA, ETOH, adverse medicine reaction, overdose, stroke, this is not meant to be an all-inclusive list. EKG interpreted by me (3pts min.). @ -As above X-rays interpreted by me (1pt min.). @ -None done CT interpreted by me (1pt min.). @ -None done U/S interpreted by me (1pt. min.). @ -None done What testing was considered but not performed or refused? (CT, X-rays, U/S, labs)? Why? @ -None What meds were considered but not given or refused? Why? @ -None Did you discuss the management of the patient with other professionals (professionals i.e. DrMarlyn, PA, J2EE ARCHITECT, lab, RT, psych nurse, social insurance administrator, die polisher, teacher, public health officer, piano case and bench assembler)? Give summary @ -I spoke with [facility] [place] physicians agreed to admit the patient. Was smoking cessation discussed for >3mins.? @ -No Was critical care preformed (if so, how long)? @ -35 minutes Were there social determinants of health that impacted care today? How? (Homelessness, low income, unemployed, alcoholism, drug addiction, transportation, low edu. Level, literacy, decrease access to med. care, assisted, rehab)? @ -No Was there de-escalation of care discussed even if they declined (Discuss DNR or withdrawal of care, Hospice)? DNR status @ -No What co-morbidities impacted this encounter? (DM, HTN, Smoking, COPD, CAD, Cancer, CVA, ARF, Chemo, Hep., AIDS, mental health diagnosis, sleep apnea, m orbid obesity)? @ -None Was patient admitted / discharged? Hospital course, mention meds given and r oute, prescriptions, significant lab abnormalities, going to OR and other pertinent info. @ -Patient was placed on insulin and given a fluid bolus. Patient was not acidotic. Patient will be admitted to [facility] [place] physicians. And continued on the insulin drip Undiagnosed new problem with uncertain prognosis? @ -No Drug Therapy requiring intensive monitoring for toxicity (Heparin, Nitro, Insulin, Cardizem)? @ -No Were any procedures done? @ -No Diagnosis/symptom? @ -Hyperglycemia hyperosmolar syndrome Acute, or Chronic, or Acute on Chronic? @ -Acute Uncomplicated (without systemic symptoms) or Complicated (systemic symptoms)? @ -Complicated Side effects of treatment? @ -No Exacerbation, Progression, or Severe Exacerbation? @ -No Poses a threat to life or bodily function? How? (Chest pain, USA, MA, pneumonia, PE, COPD, DKA, ARF, appy, cholecystitis, CVA, Diverticulitis, Homicidal, Suicidal, threat to staff... and all critical care pts) @ -Yes this can lead to dehydration and significant morbidity mortality - Lab Data Result diagrams: 12/16/24 12:12 12/16/24 12:12 Lab Results 0712/16/24 12/16/24 Range/Units 10:43 12:12 12:12 WBC 5.71 (4.50-10.00) 10*3/uL RBC 4.00 L (4.10-5.20) 10*6/uL Hgb 9.5 L (12.0-15.0) g/dL Hct 30.8 L (37.2-46.3) % MCV 77.0 L (80.0-97.0) fL MCH 23.8 L (27.0-32.0) pg MCHC 30.8 L (32.0-37.0) g/dL Plt Count 177 (140-440) 10*3/uL MPV 11.0 (9.5-12.2) fL Immature Gran % (Auto) 0.9 % Neutrophils % 67.7 % Lymphocytes % 21.9 % Monocytes % 7.2 % Eosinophils % 1.4 % Basophils % 0.9 % Immature Gran # 0.05 H (0.00-0.04) 10*3/uL Neutrophils # 3.87 (1.80-7.70) 10*3/uL Lymphocytes # 1.25 (0.90-5.00) 10*3/uL Monocytes # 0.41 (0.20-1.00) 10*3/uL Eosinophils # 0.08 (0.04-0.35) 10*3/uL Basophils # 0.05 (0.00-0.10) 10*3/uL VBG pH (7.31-7.41) VBG pCO2 (37-51) mmHg VBG HCO3 (24-28) mmol/L Sodium 130 L (137-145) mmol/L Potassium 4.1 (3.5-5.1) mmol/L Chloride 93 L (98-107) mmol/L Carbon Dioxide 28 (22-30) mmol/L Anion Gap 9 mmol/L BUN 10 (7-17) mg/dL Creatinine 0.86 (0.52-1.04) mg/dL Est GFR (CKD-EPI)AfAm 76 (>60 ml/min/1.73 sqM) Est GFR (CKD-EPI)NonAf 66 (>60 ml/min/1.73 sqM) Glucose 611 H* (74-99) mg/dL POC Glucose (mg/dL) >600 H* (70-110) mg/dL POC Glu Study Specialist ID Geronimo Nunn Phosphorus (2.5-4.5) mg/dL Urine Color Urine Appearance (Clear) Urine pH (5.0-8.0) Ur Specific [place] (1.001-1.035) Urine Protein (Negative) Urine Glucose (UA) (Negative) Urine Ketones (Negative) Urine Blood (Negative) Urine Nitrite (Negative) Urine Bilirubin (Negative) Urine Urobilinogen (<2.0) mg/dL Ur Leukocyte Esterase (Negative) Acetone, Qual Negative (Negative) 12/16/24 12/16/24 12/16/24 Range/Units 12:12 12:20 12:24 WBC (4.50-10.00) 10*3/uL RBC (4.10-5.20) 10*6/uL Hgb (12.0-15.0) g/dL Hct (37.2-46.3) % MCV (80.0-97.0) fL MCH (27.0-32.0) pg MCHC (32.0-37.0) g/dL Plt Count (140-440) 10*3/uL MPV (9.5-12.2) fL Immature Gran % (Auto) % Neutrophils % % Lymphocytes % % Monocytes % % Eosinophils % % Basophils % % Immature Gran # (0.00-0.04) 10*3/uL Neutrophils # (1.80-7.70) 10*3/uL Lymphocytes # (0.90-5.00) 10*3/uL Monocytes # (0.20-1.00) 10*3/uL Eosinophils # (0.04-0.35) 10*3/uL Basophils # (0.00-0.10) 10*3/uL VBG pH 7.47 H (7.31-7.41) VBG pCO2 40 (37-51) mmHg VBG HCO3 28 (24-28) mmol/L Sodium (137-145) mmol/L Potassium (3.5-5.1) mmol/L Chloride (98-107) mmol/L Carbon Dioxide (22-30) mmol/L Anion Gap mmol/L BUN (7-17) mg/dL Creatinine (0.52-1.04) mg/dL Est GFR (CKD-EPI)AfAm (>60 ml/min/1.73 sqM) Est GFR (CKD-EPI)NonAf (>60 ml/min/1.73 sqM) Glucose (74-99) mg/dL POC Glucose (mg/dL) (70-110) mg/dL POC Glu Study Specialist ID Phosphorus 3.5 (2.5-4.5) mg/dL Urine Color Colorless Urine Appearance Clear (Clear) Urine pH 6.0 (5.0-8.0) Ur Specific [place] 1.025 (1.001-1.035) Urine Protein Trace H (Negative) Urine Glucose (UA) 4+ H (Negative) Urine Ketones Negative (Negative) Urine Blood Negative (Negative) Urine Nitrite Negative (Negative) Urine Bilirubin Negative (Negative) Urine Urobilinogen <2.0 (<2.0) mg/dL Ur Leukocyte Esterase Negative (Negative) Acetone, Qual (Negative) 12/16/24 Range/Units 13:31 WBC (4.50-10.00) 10*3/uL RBC (4.10-5.20) 10*6/uL Hgb (12.0-15.0) g/dL Hct (37.2-46.3) % MCV (80.0-97.0) fL MCH (27.0-32.0) pg MCHC (32.0-37.0) g/dL Plt Count (140-440) 10*3/uL MPV (9.5-12.2) fL Immature Gran % (Auto) % Neutrophils % % Lymphocytes % % Monocytes % % Eosinophils % % Basophils % % Immature Gran # (0.00-0.04) 10*3/uL Neutrophils # (1.80-7.70) 10*3/uL Lymphocytes # (0.90-5.00) 10*3/uL Monocytes # (0.20-1.00) 10*3/uL Eosinophils # (0.04-0.35) 10*3/uL Basophils # (0.00-0.10) 10*3/uL VBG pH (7.31-7.41) VBG pCO2 (37-51) mmHg VBG HCO3 (24-28) mmol/L Sodium (137-145) mmol/L Potassium (3.5-5.1) mmol/L Chloride (98-107) mmol/L Carbon Dioxide (22-30) mmol/L Anion Gap mmol/L BUN (7-17) mg/dL Creatinine (0.52-1.04) mg/dL Est GFR (CKD-EPI)AfAm (>60 ml/min/1.73 sqM) Est GFR (CKD-EPI)NonAf (>60 ml/min/1.73 sqM) Glucose (74-99) mg/dL POC Glucose (mg/dL) 418 H (70-110) mg/dL POC Glu Study Specialist ID Dudley Cisse Phosphorus (2.5-4.5) mg/dL Urine Color Urine Appearance (Clear) Urine pH (5.0-8.0) Ur Specific [place] (1.001-1.035) Urine Protein (Negative) Urine Glucose (UA) (Negative) Urine Ketones (Negative) Urine Blood (Negative) Urine Nitrite (Negative) Urine Bilirubin (Negative) Urine Urobilinogen (<2.0) mg/dL Ur Leukocyte Esterase (Negative) Acetone, Qual (Negative) Disposition Clinical Impression: Hyperosmolar hyperglycemic state (HHS) Disposition: ADMITTED IP TO THIS HOSP Referrals: Giovanni Hanks DO [Primary Care Provider] - 1-2 days Time of Disposition: 13:34
[2024-12-16 14:33] LABS: Glucose,Whole Blood 264 mg/dL (70-110)
[2024-12-16] MEDS ORDERED: INSULIN NPH 100 UNIT/ML 10 ML VIAL SQ STA (14:55)
--- NOTE | 2024-12-16 15:18 | P.HPIM ---
History of Present Illness H&P Date: 12/16/24 Chief Complaint: High reading on glucometer Patient is a 79-year-old female with a past medical history of type 2 diabetes mellitus, coronary disease with CABG performed in 2013, hypertension who was recently admitted for pneumonia and discharged on 12/12/2024. Patient returns to the ED today because her glucometer said her blood glucose reading was high. Patient on last admission was discharged on Lantus 40 units twice daily. She states that she was taking this. Patient states that she has NovoLog at home however was not taking it because she did not have clear instructions on how to take it. Patient states that the NovoLog was prescribed by her PCP. She states that this morning when her glucometer reading was high she did take 8 units of NovoLog. She denies having any issues taking the insulin. In the ED patient's blood glucose reading was greater than 600. DKA was ruled out as acetone was negative and pH was within normal limits and bicarb was 28. Patient was started on insulin drip. Within an hour patient's blood glucose came down to 264. I in structed the patient to give patient one-time dose of NPH 20 units and to start sliding scale and diet. I provided patient with clear instructions on how to administer her NovoLog. Patient was deemed stable for discharge and instructed to follow-up with her PCP closely. ROS: 10 ROS reviewed and are negative except as noted in HPI Physical exam General: [Alert and oriented, well nourished, no acute distress]. Eye: [PERRL, EOMI, normal conjunctiva]. HENT: [Normocephalic, clear tympanic membranes, normal hearing, moist oral mucosa, no scleral icterus, no sinus tenderness]. Neck: [Supple, non-tender, no carotid bruits, no JVD, no lymphadenopathy]. Lungs: [Clear to auscultation and percussion, non-labored respiration]. Heart: [Normal rate, regular rhythm, no murmur, gallop or edema]. Abdomen: [Soft, non-tender, non-distended, normal bowel sounds, no masses]. Musculoskeletal: [Normal range of motion and strength, no tenderness or swelling]. Skin: [Skin is warm, dry and pink, no rashes or lesions]. Neurologic: [Awake, alert, and oriented X3, CN II-XII intact]. Psychiatric: [Cooperative, appropriate mood and affect]. Assessment and plan Diabetes mellitus with hyperglycemia secondary to noncompliance with medication When I was called by the ED physician patient's blood glucose was greater than 600 so accepted the admission. Patient was started on insulin drip and within an hour or so blood glucose was down to 264. As mentioned above I will give 20 units of NPH and start sliding scale insulin and give patient a diet. Patient reports she was not taking her NovoLog because she was not given clear instructions. I provided patient with clear instructions to take her NovoLog. Patient will resume her Lantus 40 units twice daily. Chronic conditions Coronary disease status post CABG Hypertension -Patient will resume her home medications on discharge Past Medical History Past Medical History: Coronary Artery Disease (CAD), Chest Pain / Angina, Heart Failure, Diabetes Mellitus, GERD/Reflux, GI Bleed, Hypertension, Liver Disease, Sleep Apnea/CPAP/BIPAP Additional Past Medical History / Comment(s): anemia and has had several iron infusions/blood transfusions,past bleeding gastric ulcers, rectal bleed, nonalco holic liver cirrhosis,,RLS, low back/L hip pain,. clausterphobia. insomnia, History of Any Multi-Drug Resistant Organisms: None Reported Past Surgical History: Hysterectomy, Orthopedic Surgery, Tonsillectomy Additional Past Surgical History / Comment(s): Hemorrhagic cyst removed from right ureter; Right foot surgery d/t crush injury; Left hip pain stimulator implanted, Steel iris in right arm, EGDs/colonoscopies, bone marrow aspirations, low back and cervical injections for pain, bilateral cataract removals with lens implants. Right middle and ring finger trigger release. Past Anesthesia/Blood Transfusion Reactions: No Reported Reaction, Motion Sickness Additional Past Anesthesia/Blood Transfusion Reaction / Comment(s): Pt has had several blood transfusions without reaction. Pt has clausterphobia. Past Psychological History: No Psychological Hx Reported Smoking Status: Former smoker Past Alcohol Use History: None Reported Past Drug Use History: None Reported - Past Family History Father Additional Family Medical History / Comment(s): Father was an alcoholic but was sober for the last 9 yrs of his life. Mother Family Medical History: Coronary Artery Disease (CAD), Diabetes Mellitus Additional Family Medical History / Comment(s): Low hgb. She during a colonoscopy. She had 4 vessel CABG Sister(s) Additional Family Medical History / Comment(s): heart stent Medications and Allergies Home Medications Medication Instructions Recorded Confirmed Type Cyclobenzaprine [Flexeril] 10 mg PO HS PRN 07/15/21 12/10/24 History Clopidogrel [Plavix] 75 mg PO DAILY 08/26/24 12/10/24 History Gabapentin [Neurontin] 300 mg PO HS 08/26/24 12/10/24 History carvediloL [Coreg] 12.5 mg PO BID-W/MEALS 08/26/24 12/10/24 History Aspirin EC [Ecotrin Low Dose] 81 mg PO DAILY 09/18/24 12/10/24 History Atorvastatin [Lipitor] 40 mg PO DAILY 09/18/24 12/10/24 History traZODone HCL 75 mg PO HS 09/18/24 12/10/24 History HYDROcodone/APAP 10-325MG [[place] 1 tab PO QID PRN 12/10/24 12/10/24 History 10-325] Omeprazole 40 mg PO DAILY 12/10/24 12/10/24 History Cefdinir 300 mg PO Q12HR #8 cap 12/13/24 Rx Insulin Glargine,Hum.rec.anlog 40 units SQ DAILY #0 12/13/24 12/10/24 Rx [Lantus Solostar Pen] Insulin Glargine,Hum.rec.anlog 40 units SQ HS #0 12/13/24 12/10/24 Rx [Lantus Solostar Pen] INSULIN LISPRO (HumaLOG) [HumaLOG] 0 unit SQ ACHS each 12/16/24 Rx Allergies Allergy/AdvReac Type Severity Reaction Status Date / Time pentazocine [From [place]] AdvReac Hallucinati Verified 12/16/24 10:45 ons Physical Exam Osteopathic Statement: *. No significant issues noted on an osteopathic structural exam other than those noted in the History and Physical/Consult. Vitals: Vital Signs Temp Pulse Resp BP Pulse Ox 12/16/24 10:38 97.9 F 79 18 147/67 97 Intake and Output 12/16/24 12/16/24 12/16/24 06:59 14:59 22:59 Other: Weight 77.111 kg Results CBC & Chem 7: 12/16/24 12:12 12/16/24 12:12 Labs: Abnormal Lab Results - Last 24 Hours (Table) 12/16/24 12/16/24 12/16/24 Range/Units 10:43 12:12 12:12 RBC 4.00 L (4.10-5.20) 10*6/uL Hgb 9.5 L (12.0-15.0) g/dL Hct 30.8 L (37.2-46.3) % MCV 77.0 L (80.0-97.0) fL MCH 23.8 L (27.0-32.0) pg MCHC 30.8 L (32.0-37.0) g/dL Immature Gran # 0.05 H (0.00-0.04) 10*3/uL VBG pH (7.31-7.41) Sodium 130 L (137-145) mmol/L Chloride 93 L (98-107) mmol/L Glucose 611 H* (74-99) mg/dL POC Glucose (mg/dL) >600 H* (70-110) mg/dL Urine Protein (Negative) Urine Glucose (UA) (Negative) 12/16/24 12/16/24 12/16/24 Range/Units 12:20 12:24 13:31 RBC (4.10-5.20) 10*6/uL Hgb (12.0-15.0) g/dL Hct (37.2-46.3) % MCV (80.0-97.0) fL MCH (27.0-32.0) pg MCHC (32.0-37.0) g/dL Immature Gran # (0.00-0.04) 10*3/uL VBG pH 7.47 H (7.31-7.41) Sodium (137-145) mmol/L Chloride (98-107) mmol/L Glucose (74-99) mg/dL POC Glucose (mg/dL) 418 H (70-110) mg/dL Urine Protein Trace H (Negative) Urine Glucose (UA) 4+ H (Negative) 12/16/24 Range/Units 14:31 RBC (4.10-5.20) 10*6/uL Hgb (12.0-15.0) g/dL Hct (37.2-46.3) % MCV (80.0-97.0) fL MCH (27.0-32.0) pg MCHC (32.0-37.0) g/dL Immature Gran # (0.00-0.04) 10*3/uL VBG pH (7.31-7.41) Sodium (137-145) mmol/L Chloride (98-107) mmol/L Glucose (74-99) mg/dL POC Glucose (mg/dL) 264 H (70-110) mg/dL Urine Protein (Negative) Urine Glucose (UA) (Negative)
--- NOTE | 2024-12-16 15:23 | P.DS ---
Providers Primary care physician: [facility] Course: Discharge Diagnosis: Diabetes mellitus with hyperglycemia Hospital Course: Patient is a 79-year-old female with a past medical history of type 2 diabetes mellitus, coronary disease with CABG performed in 2013, hypertension who was recently admitted for pneumonia wtih bacteremia and discharged on 12/12/2024. Patient returns to the ED today because her glucometer said her blood glucose reading was high. Patient on last admission was discharged on Lantus 40 units twice daily. She states that she was taking this. Patient states that she has NovoLog at home however was not taking it because she did not have clear instructions on how to take it. Patient states that the NovoLog was prescribed by her PCP. She states that this morning when her glucometer reading was high she did take 8 units of NovoLog. She denies having any issues taking the insulin. In the ED patient's blood glucose reading was greater than 600. DKA was ruled out as acetone was negative and pH was within normal limits and bicarb was 28. Patient was started on insulin drip. Within an hour patient's blood glucose came down to 264. I instructed the patient to give patient one-time dose of NPH 20 units and to start sliding scale and diet. I provided patient with clear instructions on how to administer her NovoLog. Patient was deemed stable for discharge and instructed to follow-up with her PCP closely. Patient seen and examined at bedside.[] Vital signs reviewed and stable. 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 Patient discharged on [12/06/2024] Patient Condition at Discharge: Good Plan - Discharge Summary New Discharge Prescriptions: New INSULIN LISPRO (HumaLOG) [HumaLOG] 0 unit SQ ACHS each Continue carvediloL [Coreg] 12.5 mg PO BID-W/MEALS Gabapentin [Neurontin] 300 mg PO HS traZODone HCL 75 mg PO HS HYDROcodone/APAP 10-325MG [Bartlett 10-325] 1 tab PO QID PRN PRN Reason: Pain Cefdinir 300 mg PO Q12HR #8 cap Insulin Glargine,Hum.rec.anlog [Lantus Solostar Pen] 40 units SQ HS #0 Cyclobenzaprine [Flexeril] 10 mg PO HS PRN PRN Reason: Muscle Spasm Clopidogrel [Plavix] 75 mg PO DAILY Aspirin EC [Ecotrin Low Dose] 81 mg PO DAILY Atorvastatin [Lipitor] 40 mg PO DAILY Omeprazole 40 mg PO DAILY Insulin Glargine,Hum.rec.anlog [Lantus Solostar Pen] 40 units SQ DAILY #0 Discharge Medication List Cyclobenzaprine [Flexeril] 10 mg PO HS PRN 07/15/21 [History] Clopidogrel [Plavix] 75 mg PO DAILY 08/26/24 [History] Gabapentin [Neurontin] 300 mg PO HS 08/26/24 [History] carvediloL [Coreg] 12.5 mg PO BID-W/MEALS 08/26/24 [History] Aspirin EC [Ecotrin Low Dose] 81 mg PO DAILY 09/18/24 [History] Atorvastatin [Lipitor] 40 mg PO DAILY 09/18/24 [History] traZODone HCL 75 mg PO HS 09/18/24 [History] HYDROcodone/APAP 10-325MG [Bartlett 10-325] 1 tab PO QID PRN 12/10/24 [History] Omeprazole 40 mg PO DAILY 12/10/24 [History] Cefdinir 300 mg PO Q12HR #8 cap 12/13/24 [Rx] Insulin Glargine,Hum.rec.anlog [Lantus Solostar Pen] 40 units SQ DAILY #0 12/13/24 [Rx] Insulin Glargine,Hum.rec.anlog [Lantus Solostar Pen] 40 units SQ HS #0 12/13/24 [Rx] INSULIN LISPRO (HumaLOG) [HumaLOG] 0 unit SQ ACHS each 12/16/24 [Rx] Follow up Appointment(s)/Referral(s): iGovanni Hanks DO [Primary Care Provider] - 1-2 days Discharge Disposition: HOME SELF-CARE
[2024-12-16] MEDS ORDERED: INSULIN LISPRO (HumaLOG) 100 UNIT/ML 10 mL VL SQ SCH (17:30)
== END 2024-12-16 15:51 | disposition home or self-care (01) ==
LOC: EC 10:38
DX: Z88.8 Allergy status to other drugs, medicaments and biological substances (principal)
CPT/HCPCS: 36415; 80051; 81003; 82009; 82565; 82803; 82947; 84100; 84520; 85025; 93005; 96360; 96361; 99285

== ENCOUNTER 2024-12-17 01:38 | Emergency (ER) | payer MEDICARE ==
[2024-12-17 01:53] LABS: Glucose,Whole Blood 488 mg/dL (70-110)
--- NOTE | 2024-12-17 02:16 | ED ---
Recheck HPI - General Chief Complaint: Recheck/Abnormal Lab/Rx Stated Complaint: high blood sugar Time Seen by Provider: 12/17/24 01:54 Source: patient, RN notes reviewed Mode of arrival: ambulatory - History of Present Illness MD Complaint: abnormal lab Onset/Timin -: days(s) Associated Symptoms: other (Blurred vision) Treatments Prior to Arrival: other (Lantus, NovoLog) - Related Data Home Medications Medication Instructions Recorded Confirmed Cyclobenzaprine [Flexeril] 10 mg PO HS PRN 07/15/21 12/10/24 Clopidogrel [Plavix] 75 mg PO DAILY 08/26/24 12/10/24 Gabapentin [Neurontin] 300 mg PO HS 08/26/24 12/10/24 carvediloL [Coreg] 12.5 mg PO BID-W/MEALS 08/26/24 12/10/24 Aspirin EC [Ecotrin Low Dose] 81 mg PO DAILY 09/18/24 12/10/24 Atorvastatin [Lipitor] 40 mg PO DAILY 09/18/24 12/10/24 traZODone HCL 75 mg PO HS 09/18/24 12/10/24 HYDROcodone/APAP 10-325MG [Cascade 1 tab PO QID PRN 12/10/24 12/10/24 10-325] Omeprazole 40 mg PO DAILY 12/10/24 12/10/24 Previous Rx's Medication Instructions Recorded Cefdinir 300 mg PO Q12HR #8 cap 12/13/24 Insulin Glargine,Hum.rec.anlog 40 units SQ DAILY #0 12/13/24 [Lantus Solostar Pen] Insulin Glargine,Hum.rec.anlog 40 units SQ HS #0 12/13/24 [Lantus Solostar Pen] INSULIN LISPRO (HumaLOG) [HumaLOG] 0 unit SQ ACHS each 12/16/24 Magnesium Oxide [Mag-Ox] 400 mg PO DAILY #5 tablet 12/17/24 Allergies Allergy/AdvReac Type Severity Reaction Status Date / Time pentazocine [From Lashell] AdvReac Hallucinati Verified 12/17/24 01:52 ons Review of Systems ROS Statement: Those systems with pertinent positive or pertinent negative responses have been documented in the HPI. ROS Other: All systems not noted in ROS Statement are negative. Past Medical History Past Medical History: Coronary Artery Disease (CAD), Chest Pain / Angina, Heart Failure, Diabetes Mellitus, GERD/Reflux, GI Bleed, Hypertension, Liver Disease, Sleep Apnea/CPAP/BIPAP Additional Past Medical History / Comment(s): anemia and has had several iron infusions/blood transfusions,past bleeding gastric ulcers, rectal bleed, nonalcoholic liver cirrhosis,,RLS, low back/L hip pain,. clausterphobia. insomnia, History of Any Multi-Drug Resistant Organisms: None Reported Past Surgical History: Hysterectomy, Orthopedic Surgery, Tonsillectomy Additional Past Surgical History / Comment(s): Hemorrhagic cyst removed from right ureter; Right foot surgery d/t crush injury; Left hip pain stimulator implanted, Steel iris in right arm, EGDs/colonoscopies, bone marrow aspirations, low back and cervical injections for pain, bilateral cataract removals with lens implants. Right middle and ring finger trigger release. Past Anesthesia/Blood Transfusion Reactions: No Reported Reaction, Motion Sickness Additional Past Anesthesia/Blood Transfusion Reaction / Comment(s): Pt has had several blood transfusions without reaction. Pt has clausterphobia. Past Psychological History: No Psychological Hx Reported Smoking Status: Former smoker Past Alcohol Use History: None Reported Past Drug Use History: None Reported - Past Family History Father Additional Family Medical History / Comment(s): Father was an alcoholic but was sober for the last 9 yrs of his life. Mother Family Medical History: Coronary Artery Disease (CAD), Diabetes Mellitus Additional Family Medical History / Comment(s): Low hgb. She during a colonoscopy. She had 4 vessel CABG Sister(s) Additional Family Medical History / Comment(s): heart stent General Exam General appearance: alert, in no apparent distress Head exam: Present: atraumatic, normocephalic, normal inspection Eye exam: Present: normal appearance, PERRL, EOMI. Absent: scleral icterus, conjunctival injection, periorbital swelling ENT exam: Present: normal exam, mucous membranes moist Neck exam: Present: normal inspection. Absent: tenderness, meningismus, lymphadenopathy Respiratory exam: Present: normal lung sounds bilaterally. Absent: respiratory distress, wheezes, rales, rhonchi, stridor, accessory muscle use, decreased breath sounds, prolonged expiratory Cardiovascular Exam: Present: regular rate, normal rhythm, normal heart sounds. Absent: systolic murmur, diastolic murmur, rubs, gallop, clicks GI/Abdominal exam: Present: soft, normal bowel sounds. Absent: distended, tenderness, guarding, rebound, rigid Extremities exam: Present: normal inspection, full ROM, normal capillary refill. Absent: tenderness, pedal edema, joint swelling, calf tenderness Back exam: Present: normal inspection Neurological exam: Present: alert, oriented X3, CN II-XII intact Psychiatric exam: Present: normal affect, normal mood Skin exam: Present: warm, dry, intact, normal color. Absent: rash Course Vital Signs 12/17/24 12/17/24 12/17/24 01:49 02:07 02:40 Temperature 98.1 F Pulse Rate 82 83 72 Respiratory 19 20 20 Rate Blood Pressure 136/53 114/60 137/54 O2 Sat by Pulse 98 100 99 Oximetry Medical Decision Making - Medical Decision Making Was pt. sent in by a medical professional or institution (, PA, DIRECTOR OF DIETARY, urgent care, hospital, or [facility]...) When possible be specific @ -[No] Did you speak to anyone other than the patient for history (EMS, parent, family, police, friend...)? What history was obtained from this source @ -[No] Did you review nursing and triage notes (agree or disagree)? Why? @ -[I reviewed and agree with nursing and triage notes] Were old charts reviewed (outside hosp., previous admission, EMS record, old EKG, old radiological studies, urgent care reports/EKG's, [facility] records)? Report findings @ -[No old charts were reviewed] Differential Diagnosis (chest pain, altered mental status, abdominal pain women, abdominal pain men, vaginal bleeding, weakness, fever, dyspnea, syncope, headache, dizziness, GI bleed, back pain, seizure, CVA, palpatations, mental health, musculoskeletal)? @ -Differential Altered Mental Status: Hypoglycemia, DKA, hypercapnia, ETOH, overdose, CO poisoning, trauma, myxedema coma, HTN encephalopathy, infection, encephalitis, psychosis, intercranial hemorrhage, hepatic encephalopathy, meningitis, CVA, this is not meant to be an all-inclusive list EKG interpreted by me (3pts min.). @ -Not done X-rays interpreted by me (1pt min.). @ -[None done] CT interpreted by me (1pt min.). @ -[None done] U/S interpreted by me (1pt. min.). @ -[None done] What testing was considered but not performed or refused? (CT, X-rays, U/S, labs)? Why? @ -[None] What meds were considered but not given or refused? Why? @ -[None] Did you discuss the management of the patient with other professionals (professionals i.e. , PA, DIRECTOR OF DIETARY, lab, RT, psych nurse, social director, information security specialist, teacher, human resource officer, caser)? Give summary @ -[No] Was smoking cessation discussed for >3mins.? @ -[No] Was critical care preformed (if so, how long)? @ -[No] Were there social determinants of health that impacted care today? How? (Homelessness, low income, unemployed, alcoholism, drug addiction, transportation, low edu. Level, literacy, decrease access to med. care, alf, rehab)? @ -[No] Was there de-escalation of care discussed even if they declined (Discuss DNR or withdrawal of care, Hospice)? DNR status @ -[No] What co-morbidities impacted this encounter? (DM, HTN, Smoking, COPD, CAD, Cancer, CVA, ARF, Chemo, Hep., AIDS, mental health diagnosis, sleep apnea, morbid obesity)? @ -[None] Was patient admitted / discharged? Hospital course, mention meds given and route, prescriptions, significant lab abnormalities, going to OR and other pertinent info. @ -[hospital course] Undiagnosed new problem with uncertain prognosis? @ -[No] Drug Therapy requiring intensive monitoring for toxicity (Heparin, Nitro, Insulin, Cardizem)? @ -[No] Were any procedures done? @ -[No] Diagnosis/symptom? @ -Hyperglycemia, hypomagnesia Acute, or Chronic, or Acute on Chronic? @ -Acute Uncomplicated (without systemic symptoms) or Complicated (systemic symptoms)? @ -Complicated Side effects of treatment? @ -[No] Exacerbation, Progression, or Severe Exacerbation? @ -[No] Poses a threat to life or bodily function? How? (Chest pain, [place], HI, pneumonia, PE, COPD, DKA, ARF, appy, cholecystitis, CVA, Diverticulitis, Homicidal, Suicidal, threat to staff... and all critical care pts) @ -[No] - Lab Data Result diagrams: 12/17/24 02:13 12/17/24 02:13 Lab Results 12/17/24 12/17/24 12/17/24 Range/Units 01:52 02:12 02:13 WBC 6.51 (4.50-10.00) 10*3/uL RBC 3.74 L (4.10-5.20) 10*6/uL Hgb 8.9 L (12.0-15.0) g/dL Hct 29.2 L (37.2-46.3) % MCV 78.1 L (80.0-97.0) fL MCH 23.8 L (27.0-32.0) pg MCHC 30.5 L (32.0-37.0) g/dL Plt Count 179 (140-440) 10*3/uL MPV 11.2 (9.5-12.2) fL Immature Gran % (Auto) 0.8 % Neutrophils % 62.3 % Lymphocytes % 27.5 % Monocytes % 7.1 % Eosinophils % 1.5 % Basophils % 0.8 % Immature Gran # 0.05 H (0.00-0.04) 10*3/uL Neutrophils # 4.06 (1.80-7.70) 10*3/uL Lymphocytes # 1.79 (0.90-5.00) 10*3/uL Monocytes # 0.46 (0.20-1.00) 10*3/uL Eosinophils # 0.10 (0.04-0.35) 10*3/uL Basophils # 0.05 (0.00-0.10) 10*3/uL VBG pH (7.31-7.41) VBG pCO2 (37-51) mmHg VBG HCO3 (24-28) mmol/L Sodium (137-145) mmol/L Potassium (3.5-5.1) mmol/L Chloride (98-107) mmol/L Carbon Dioxide (22-30) mmol/L Anion Gap mmol/L BUN (7-17) mg/dL Creatinine (0.52-1.04) mg/dL Est GFR (CKD-EPI)AfAm (>60 ml/min/1.73 sqM) Est GFR (CKD-EPI)NonAf (>60 ml/min/1.73 sqM) Glucose (74-99) mg/dL POC Glucose (mg/dL) 488 H (70-110) mg/dL POC Glu Tool Straightener ID Genevieve Castro Calcium (8.4-10.2) mg/dL Magnesium (1.6-2.3) mg/dL Total Bilirubin (0.2-1.3) mg/dL AST (14-36) U/L ALT (4-34) U/L Alkaline Phosphatase (38-126) U/L Total Protein (6.3-8.2) g/dL Albumin (3.5-5.0) g/dL Urine Color Colorless Urine Appearance Clear (Clear) Urine pH 5.5 (5.0-8.0) Ur Specific [place] 1.017 (1.001-1.035) Urine Protein Trace H (Negative) Urine Glucose (UA) 4+ H (Negative) Urine Ketones Negative (Negative) Urine Blood Negative (Negative) Urine Nitrite Negative (Negative) Urine Bilirubin Negative (Negative) Urine Urobilinogen <2.0 (<2.0) mg/dL Ur Leukocyte Esterase Negative (Negative) Acetone, Qual (Negative) 12/17/24 12/17/24 12/17/24 Range/Units 02:13 02:13 04:07 WBC (4.50-10.00) 10*3/uL RBC (4.10-5.20) 10*6/uL Hgb (12.0-15.0) g/dL Hct (37.2-46.3) % MCV (80.0-97.0) fL MCH (27.0-32.0) pg MCHC (32.0-37.0) g/dL Plt Count (140-440) 10*3/uL MPV (9.5-12.2) fL Immature Gran % (Auto) % Neutrophils % % Lymphocytes % % Monocytes % % Eosinophils % % Basophils % % Immature Gran # (0.00-0.04) 10*3/uL Neutrophils # (1.80-7.70) 10*3/uL Lymphocytes # (0.90-5.00) 10*3/uL Monocytes # (0.20-1.00) 10*3/uL Eosinophils # (0.04-0.35) 10*3/uL Basophils # (0.00-0.10) 10*3/uL VBG pH 7.39 (7.31-7.41) VBG pCO2 43 (37-51) mmHg VBG HCO3 26 (24-28) mmol/L Sodium 130 L (137-145) mmol/L Potassium 3.7 (3.5-5.1) mmol/L Chloride 95 L (98-107) mmol/L Carbon Dioxide 23 (22-30) mmol/L Anion Gap 12 mmol/L BUN 7 (7-17) mg/dL Creatinine 0.72 (0.52-1.04) mg/dL Est GFR (CKD-EPI)AfAm >90 (>60 ml/min/1.73 sqM) Est GFR (CKD-EPI)NonAf 82 (>60 ml/min/1.73 sqM) Glucose 412 H (74-99) mg/dL POC Glucose (mg/dL) 299 H (70-110) mg/dL POC Glu Tool Straightener ID Devorah Mike Calcium 8.2 L (8.4-10.2) mg/dL Magnesium 1.0 L (1.6-2.3) mg/dL Total Bilirubin 0.5 (0.2-1.3) mg/dL AST 35 (14-36) U/L ALT 17 (4-34) U/L Alkaline Phosphatase 139 H (38-126) U/L Total Protein 7.0 (6.3-8.2) g/dL Albumin 3.2 L (3.5-5.0) g/dL Urine Color Urine Appearance (Clear) Urine pH (5.0-8.0) Ur Specific [place] (1.001-1.035) Urine Protein (Negative) Urine Glucose (UA) (Negative) Urine Ketones (Negative) Urine Blood (Negative) Urine Nitrite (Negative) Urine Bilirubin (Negative) Urine Urobilinogen (<2.0) mg/dL Ur Leukocyte Esterase (Negative) Acetone, Qual Negative (Negative) Disposition Clinical Impression: Hypomagnesemia Disposition: HOME SELF-CARE Condition: Fair Instructions (If sedation given, give patient instructions): Hypomagnesemia (ED), Diabetic Hyperglycemia (ED) Additional Instructions: Continue previously prescribed insulin regimens for ongoing management of blood sugar levels. Follow-up with PCP within the next 5 days for ongoing management of low magnesium levels. Prescriptions: Magnesium Oxide [Mag-Ox] 400 mg PO DAILY #5 tablet Is patient prescribed a controlled substance at d/c from ED?: No Referrals: Giovanni Hanks DO [Primary Care Provider] - 1-2 days Time of Disposition: 04:12
[2024-12-17] MEDS: SODIUM CHLORIDE 0.9% 1,000 ML IV STA (02:36)
[2024-12-17 03:06] LABS: Basophils # (A) 0.05 10*3/uL (0.00-0.10); Basophils % (A) 0.8 %; Eosinophils # (A) 0.10 10*3/uL (0.04-0.35); Eosinophils % (A) 1.5 %; HCT 29.2 % (37.2-46.3); HGB 8.9 g/dL (12.0-15.0); Lymphocytes # (A) 1.79 10*3/uL (0.90-5.00); Lymphocytes % (A) 27.5 %; MCH 23.8 pg (27.0-32.0); MCHC 30.5 g/dL (32.0-37.0); MCV 78.1 fL (80.0-97.0); Monocytes # (A) 0.46 10*3/uL (0.20-1.00); Monocytes % (A) 7.1 %; Neutrophils # (A) 4.06 10*3/uL (1.80-7.70); Neutrophils % (A) 62.3 %; Platelet Count 179 10*3/uL (140-440); RBC 3.74 10*6/uL (4.10-5.20); RDW 14.6 % (11.5-14.5); WBC 6.51 10*3/uL (4.50-10.00)
[2024-12-17 03:10] LABS: Color,Urine Colorless; PH, Urine 5.5 (5.0-8.0); Protein,Urine Trace (Negative); Specific Gravity,Urine 1.017 (1.001-1.035)
[2024-12-17 03:11] LABS: Bilirubin,Urine Negative (Negative); Blood,Urine Negative (Negative); Glucose,Urine (UA) 4+ (Negative); Ketones,Urine Negative (Negative); Leukocyte Esterase,Urine Negative (Negative); Nitrite,Urine Negative (Negative); Urobilinogen,Urine <2.0 mg/dL (<2.0)
[2024-12-17 03:22] LABS: VBG HCO3 26.0 mmol/L (24-28); VBG PCO2 43.0 mmHg (37-51); VBG PH 7.39 (7.31-7.41)
[2024-12-17 03:29] LABS: ALT 17 U/L (4-34); AST 35 U/L (14-36); African American GFR (CKD) >90 (>60 ml/min/1.73 sqM); Albumin 3.2 g/dL (3.5-5.0); Alkaline Phosphatase 139 U/L (38-126); Anion Gap 12 mmol/L; Blood Urea Nitrogen 7 mg/dL (7-17); Calcium 8.2 mg/dL (8.4-10.2); Carbon Dioxide 23 mmol/L (22-30); Chloride 95 mmol/L (98-107); Glucose 412 mg/dL (74-99); Magnesium 1.0 mg/dL (1.6-2.3); Non-African American GFR(CKD) 82 (>60 ml/min/1.73 sqM); Potassium 3.7 mmol/L (3.5-5.1); Sodium 130 mmol/L (137-145); Total Protein 7.0 g/dL (6.3-8.2)
[2024-12-17 04:08] LABS: Glucose,Whole Blood 299 mg/dL (70-110)
[2024-12-17] MEDS: INSULIN LISPRO (HumaLOG) 100 UNIT/ML 10 mL VL SQ ONE (04:16)
[2024-12-17] MEDS: MAGNESIUM SULFATE-D5W PMX 1 GM in DEXTROSE/WATER 1 100ML.BAG IVPB STA (04:16)
[2024-12-17] MEDS: MAGNESIUM OXIDE 400 MG TAB PO STA (04:28)
[2024-12-17 04:38] VITALS: BP 169/74; PULSE 76; RESP 18; TEMP 97.8
== END 2024-12-17 04:30 | disposition home or self-care (01) ==
LOC: EC 01:38
DX: E83.42 Hypomagnesemia (principal); Z87.891 Personal history of nicotine dependence; Z88.8 Allergy status to other drugs, medicaments and biological substances
CPT/HCPCS: 36415; 80053; 81003; 82009; 82803; 83605; 83735; 85025; 96360; 99284